=== PATIENT | female | born 1945 | race Caucasian/White ===

== ENCOUNTER 2020-03-28 13:51 | Emergency (ER) | payer MEDICARE, OTHER ==
--- NOTE | 2020-03-28 14:42 | RAD REPORT ---
EXAM DESCRIPTION: RAD - Knee Right 3 View - 03/28/2020 2:21 pm CLINICAL HISTORY: Right knee pain FINDINGS: Bones are osteoporotic. Sideplate and screws affix an old femoral fracture Moderate joint effusion is present. Moderate osteoarthritis involves medial compartment consisting of joint space narrowing and osteophyt es. Lateral and patellofemoral compartment also involved. If patient continues to have symptoms to suggest an occult fracture, ligamentous or meniscal injury M RI would be recommended
[2020-03-28] MEDS ORDERED: LIDOCAINE 1% 20 ML MDV ONE (14:53)
[2020-03-28 15:28] LABS: Absolute Lymphocytes (CBC) 1.6 K/uL (0.7-4.9); Basophils % 0.6 % (0-1.3); Hematocrit 38.9 % (36.0-45.0); Lymphocytes % 12.7 % (15.3-44.8); MPV 11.3 fL (7.6-11.3); RBC Red Blood Cell Count 4.16 M/uL (3.86-4.86)
[2020-03-28 15:42] LABS: Potassium 3.9 mmol/L (3.5-5.1)
[2020-03-28 16:31] LABS: Body Fluid WBC 13852 /mm^3
[2020-03-28 16:32] LABS: Appearance VERY TURBID (CLEAR); Body Fluid Source SYNOVIAL; Color of fluid Red (COLORLESS)
[2020-03-28] MEDS ORDERED: HYDROCODONE/APAP 5/325 MG TAB ONE (17:17)
--- NOTE | 2020-03-28 17:45 | EDPHYS ---
Physician Documentation [facility] Name: Kaitlynn Snider Age: 75 yrs Sex: Female : 1945 Arrival Date: 03/28/2020 Time: 13:57 Bed 23 Private MD: ED Physician Darryl Fraser HPI: 03/28 14:15 This 75 yrs old Unknown Female presents to ER via EMS with complaints of Knee Pain. rn 14:15 The patient presents with pain, swelling. The complaints affect the right knee. Onset: rn The symptoms/episode began/occurred 2 week(s) ago. Modifying factors: The symptoms are alleviated by nothing. the symptoms are aggravated by weight bearing, bending knee. Associated signs and symptoms: Pertinent positives: swelling, Pertinent negatives fever. Severity of symptoms: At their worst the symptoms were moderate, in the emergency department the symptoms are unchanged. The patient has experienced similar episodes in the past. The patient has not recently seen a physician. Reports right knee pain and swelling for 2 weeks. No injury. + previous surgery to right knee. No fever. + hx of gout.. Historical: - Allergies: 14:01 Tape; zb - Home Meds: 17:27 aspirin 81 mg Oral chew [Active]; buspirone 10 mg Oral tab 1 tab 3 times per day zb [Active]; calcium carbonate 600 mg (1,500 mg) Oral tab [Active]; escitalopram oxalate 10 mg oral tab 1 tab once daily [Active]; Fish Oil 1,000 mg oral cap [Active]; Flintstones Complete (iron) oral chew [Active]; Flonase 50 mcg/actuation Nasal spsn 1 spray once daily [Active]; gabapentin 100 mg oral cap [Active]; gabapentin 300 mg oral cap [Active]; glimepiride 2 mg Oral tab 2 tabs twice a day [Active]; hydralazine 25 mg Oral tab 1 tab 2 times per day [Active]; Januvia 50 mg oral tab once daily [Active]; levothyroxine 50 mcg tab 1 tab once daily [Active]; loperamide 2 mg Oral cap [Active]; losartan 50 mg oral tab 1 tab 2 times per day [Active]; magnesium oxide 400 mg Oral tab [Active]; meloxicam 7.5 mg oral tab 1 tab once daily [Active]; metoprolol tartrate 25 mg oral tab 1 tab [Active]; omeprazole 40 mg Oral cpDR [Active]; pravastatin 40 mg oral tab 2 tabs once daily [Active]; verapamil 240 mg Oral TbER [Active]; Vitamin C Oral [Active]; Vitamin D Oral 1,000 unit [Active]; Cardura 8 mg Oral tab [Active]; magnesium oxide 400 mg Oral cap [Active]; Levemir 100 unit/mL subcutaneous soln 47 Other twice a day [Active]; ProAir HFA 90 mcg/actuation inhalation HFAA 1 puff every 4 hours [Active]; Singulair 10 mg Oral tab 1 tab once daily [Active]; Symbicort 160-4.5 mcg/actuation inhalation HFAA [Active]; - PMHx: 17:27 Diabetes - NIDDM; Hypertension; Hyperlipidemia; High Cholesterol; zb - Immunization history:: Adult Immunizations up to date. - Family history:: not pertinent. - Social history:: Smoking status: unknown. - Hospitalizations: : No recent hospitalization is reported. ROS: 14:15 Constitutional: Negative for fever, chills, and weight loss, MS/Extremity: + right knee rn pain and swelling Skin: Negative for injury, rash, and discoloration. Exam: 14:15 Constitutional: This is a well developed, well nourished patient who is awake, alert, rn and in no acute distress. Cardiovascular: Regular rate and rhythm. No pulse deficits. Respiratory: No increased work of breathing, no retractions or nasal flaring. Abdomen/GI: Soft, non-tender Skin: Warm, dry with normal turgor. Normal color with no rashes, no lesions, and no evidence of cellulitis. MS/ Extremity: Pulses equal, no cyanosis. Neurovascular intact. Equal circumference. Mild warmth of right knee compared to left, + mild painful ROM, no sign of overlying cellulitis. Neuro: Awake and alert, GCS 15 Vital Signs: 13:57 BP 177 / 79; Pulse 66; Resp 18; Temp 98.3; Pulse Ox 96% on R/A; Weight 86.18 kg; Height dh4 5 ft. 6 in. (167.64 cm); 15:06 BP 170 / 65; Pulse 62; Resp 18; Pulse Ox 95% on R/A; zb 16:00 BP 165 / 58; Pulse 66; Resp 18; Pulse Ox 96% on R/A; dh4 17:00 BP 170 / 72; Pulse 70; Resp 16; Pulse Ox 99% on R/A; zb 18:00 BP 162 / 80; Pulse 68; Resp 16; Pulse Ox 100% on R/A; zb 13:57 Body Mass Index 30.67 (86.18 kg, 167.64 cm) dh4 Procedures: 14:55 Joint Treatment: Aspiration of right knee using 25 gauge needle. Removed 17 ml's of rn ashok fluid, bloody fluid, Specimen sent to lab. Dressed with band aid, Patient tolerated well. MDM: 13:57 Patient medically screened. rn 17:42 Differential diagnosis: strain, knee effusion, inflammatory arthritis, gout, septic rn arthritis. Data reviewed: vital signs, nurses notes, lab test result(s), radiologic studies, plain films, and as a result, I will discharge patient. Counseling: I had a detailed discussion with the patient and/or guardian regarding: the historical points, exam findings, and any diagnostic results supporting the discharge/admit diagnosis, lab results, radiology results, the need for outpatient follow up, to return to the emergency department if symptoms worsen or persist or if there are any questions or concerns that arise at home. Response to treatment: the patient's symptoms have mildly improved after treatment, and as a result, I will discharge patient. Special discussion: I discussed with the patient/guardian in detail that at this point there is no indication for admission to the hospital. It is understood, however, that if the symptoms persist or worsen the patient needs to return immediately for re-evaluation. ED course: Pt's story most consistent with inflammatory arthropathy given 2 weeks of symptoms, afebrile, no trauma, but severe osteoarthritis with narrowing of knee joint. Joint fluid consistent most with inflammatory arthritis, WBC of fluid 13K, more blood than WBC, and gram stain neg. Will dc home with return instructions and ortho f/u.. 03/28 14:00 Order name: CBC with Diff; Complete Time: 15:54 rn 03/28 14:00 Order name: Basic Metabolic Panel; Complete Time: 15:54 rn 03/28 14:00 Order name: Blood Culture Adult (2) rn 03/28 14:00 Order name: Procalcitonin; Complete Time: 17:11 rn 01/23 14:55 Order name: Body Fluid Culture rn 03/28 14:55 Order name: Crystals, Fluid; Complete Time: 16:22 rn 03/28 14:00 Order name: XRAY Knee RIGHT 3 view; Complete Time: 14:53 rn 03/28 14:00 Order name: IV Start; Complete Time: 15:14 rn 03/28 14:55 Order name: Fluid Cell Count,Body; Complete Time: 16:57 rn Administered Medications: 17:02 Drug: P[place] 5 mg-325 mg 1 tabs Route: PO; zb Disposition: 03/28/20 17:45 Discharged to Home. Impression: Inflammatory Arthropathy right knee. - Condition is Stable. - Discharge Instructions: Arthritis, Knee Effusion. - Prescriptions for Ultram 50 mg Oral Tablet - take 1 tablet by ORAL route every 8 hours As needed; 15 tablet. - Medication Reconciliation Form, Thank You Letter, Antibiotic Education, Prescription Opioid Use form. - Follow up: Jonathan Narvaez MD; When: As needed; Reason: Recheck today's complaints, Re-evaluation by your physician. - Problem is an ongoing problem. - Symptoms have improved. Signatures: Dispatcher [employer] EDMS Darryl Fraser MD MD rn Brown, KARL Rae RN Corrections: (The following items were deleted from the chart) 18:26 17:45 03/28/2020 17:45 Discharged to Home. Impression: Inflammatory Arthropathy right zb knee. Condition is Stable. Forms are Medication Reconciliation Form, Thank You Letter, Antibiotic Education, Prescription Opioid Use. Follow up: Jonathan Narvaez; When: As needed; Reason: Recheck today's complaints, Re-evaluation by your physician. Problem is an ongoing problem. Symptoms have improved. rn
--- NOTE | 2020-03-28 17:45 | ER ---
Nurse's Notes [facility] Name: Kaitlynn Snider Age: 75 yrs Sex: Female : 1945 Arrival Date: 03/28/2020 Time: 13:57 Bed 23 Private MD: Diagnosis: Inflammatory Arthropathy right knee Presentation: 03/28 13:58 Chief complaint: EMS states: Pt has been experiencing Right knee pain and swelling for zb the last two weeks. rates pain 10/10. feels like it very hard to walk. Coronavirus screen: At this time, the client does not indicate any symptoms associated with coronavirus-19. Ebola Screen: No symptoms or risks identified at this time. Initial Sepsis Screen: Does the patient meet any 2 criteria? No. Patient's initial sepsis screen is negative. Does the patient have a suspected source of infection? No. Patient's initial sepsis screen is negative. Risk Assessment: Do you want to hurt yourself or someone else? Patient reports no desire to harm self or others. Onset of symptoms is unknown. 13:58 Acuity: RHINA 3 zb 13:58 Method Of Arrival: EMS: [facility] zb Triage Assessment: 14:00 General: Appears in no apparent distress. uncomfortable, Behavior is calm, cooperative, jd3 appropriate for age. Pain: Complains of pain in right knee Pain does not radiate. Pain currently is 10 out of 10 on a pain scale. Quality of pain is described as aching, Is continuous. EENT: No signs and/or symptoms were reported regarding the EENT system. Neuro: Level of Consciousness is awake, alert, obeys commands, Oriented to person, place, time, situation. Cardiovascular: Heart tones S1 S2 present Capillary refill < 3 seconds in bilateral fingers Patient's skin is warm and dry. Respiratory: Airway is patent Respiratory effort is even, unlabored, Respiratory pattern is regular, symmetrical. GI: No signs and/or symptoms were reported involving the gastrointestinal system. : No signs and/or symptoms were reported regarding the genitourinary system. Derm: Skin is intact, is healthy with good turgor, Skin is dry, Skin is normal. Musculoskeletal: Range of motion: limited in right knee Swelling present in right knee warmth in R knee. Historical: - Allergies: 14:01 Tape; zb - Home Meds: 17:27 aspirin 81 mg Oral chew [Active]; buspirone 10 mg Oral tab 1 tab 3 times per day zb [Active]; calcium carbonate 600 mg (1,500 mg) Oral tab [Active]; escitalopram oxalate 10 mg oral tab 1 tab once daily [Active]; Fish Oil 1,000 mg oral cap [Active]; Flintstones Complete (iron) oral chew [Active]; Flonase 50 mcg/actuation Nasal spsn 1 spray once daily [Active]; gabapentin 100 mg oral cap [Active]; gabapentin 300 mg oral cap [Active]; glimepiride 2 mg Oral tab 2 tabs twice a day [Active]; hydralazine 25 mg Oral tab 1 tab 2 times per day [Active]; Januvia 50 mg oral tab once daily [Active]; levothyroxine 50 mcg tab 1 tab once daily [Active]; loperamide 2 mg Oral cap [Active]; losartan 50 mg oral tab 1 tab 2 times per day [Active]; magnesium oxide 400 mg Oral tab [Active]; meloxicam 7.5 mg oral tab 1 tab once daily [Active]; metoprolol tartrate 25 mg oral tab 1 tab [Active]; omeprazole 40 mg Oral cpDR [Active]; pravastatin 40 mg oral tab 2 tabs once daily [Active]; verapamil 240 mg Oral TbER [Active]; Vitamin C Oral [Active]; Vitamin D Oral 1,000 unit [Active]; Cardura 8 mg Oral tab [Active]; magnesium oxide 400 mg Oral cap [Active]; Levemir 100 unit/mL subcutaneous soln 47 Other twice a day [Active]; ProAir HFA 90 mcg/actuation inhalation HFAA 1 puff every 4 hours [Active]; Singulair 10 mg Oral tab 1 tab once daily [Active]; Symbicort 160-4.5 mcg/actuation inhalation HFAA [Active]; - PMHx: 17:27 Diabetes - NIDDM; Hypertension; Hyperlipidemia; High Cholesterol; zb - Immunization history:: Adult Immunizations up to date. - Family history:: not pertinent. - Social history:: Smoking status: unknown. - Hospitalizations: : No recent hospitalization is reported. Screenin:01 Abuse screen: Denies threats or abuse. Denies injuries from another. Nutritional zb screening: No deficits noted. Tuberculosis screening: No symptoms or risk factors identified. Fall Risk No fall in past 12 months (0 pts). No secondary diagnosis (0 pts). IV access (20 points). Ambulatory Aid- Crutches/Cane/Walker (15 pts). Gait- Impaired (20 pts.). Mental Status- Oriented to own ability (0 pts). Total Samuels Fall Scale indicates Low Risk Score (25-44 pts). Fall prevention measures have been instituted. Side Rails Up X 2 Placed close to Nursing Station Frequent Obs/Assesments occuring As available Patient and Family Educated on Fall Prevention Program and strategies. Assessment: 15:00 Reassessment: Patient appears in no apparent distress at this time. Patient and/or jd3 family updated on plan of care and expected duration. Pain level reassessed. Patient is alert, oriented x 3, equal unlabored respirations, skin warm/dry/pink. no changes at this time. Knee aspiration preformed by dr. fraser. 16:00 Reassessment: Patient appears in no apparent distress at this time. Patient and/or zb family updated on plan of care and expected duration. Pain level reassessed. Patient is alert, oriented x 3, equal unlabored respirations, skin warm/dry/pink. 17:00 Reassessment: Patient appears in no apparent distress at this time. Patient and/or zb family updated on plan of care and expected duration. Pain level reassessed. Patient is alert, oriented x 3, equal unlabored respirations, skin warm/dry/pink. pt rated pain 5/10. notified ECP. medication given. ICE applied. 18:00 Reassessment: Patient appears in no apparent distress at this time. Patient and/or zb family updated on plan of care and expected duration. Pain level reassessed. Patient is alert, oriented x 3, equal unlabored respirations, skin warm/dry/pink. ECP at bedside explained care to patient. pt waiting d/c. Vital Signs: 13:57 BP 177 / 79; Pulse 66; Resp 18; Temp 98.3; Pulse Ox 96% on R/A; Weight 86.18 kg; Height dh4 5 ft. 6 in. (167.64 cm); 15:06 BP 170 / 65; Pulse 62; Resp 18; Pulse Ox 95% on R/A; zb 16:00 BP 165 / 58; Pulse 66; Resp 18; Pulse Ox 96% on R/A; 4 17:00 BP 170 / 72; Pulse 70; Resp 16; Pulse Ox 99% on R/A; zb 18:00 BP 162 / 80; Pulse 68; Resp 16; Pulse Ox 100% on R/A; zb 13:57 Body Mass Index 30.67 (86.18 kg, 167.64 cm) formerly [facility] ED Course: 13:57 Patient arrived in ED. zb 13:57 Darryl Fraser MD is Attending Physician. rn 14:00 Triage completed. zb 14:22 XRAY Knee RIGHT 3 view In Process Unspecified. EDMS 15:10 Tevin Garzon, RN is Primary Nurse. jd3 15:16 No provider procedures requiring assistance completed. Inserted saline lock: 20 gauge jd3 in left antecubital area, using aseptic technique. 15:16 Patient has correct armband on for positive identification. Pulse ox on. NIBP on. Door jd3 closed. Noise minimized. Warm blanket given. 17:44 Jonathan Narvaez MD is Referral Physician. rn 18:25 IV discontinued, intact, bleeding controlled, No redness/swelling at site. Pressure zb dressing applied. 18:26 Arm band placed on right wrist. zb Administered Medications: 17:02 Drug: [place] 5 mg-325 mg 1 tabs Route: PO; zb Outcome: 17:45 Discharge ordered by . rn 18:25 Discharged to home via wheelchair. zb 18:25 Condition: stable 18:25 Discharge instructions given to patient, Instructed on discharge instructions, follow up and referral plans. medication usage, Demonstrated understanding of instructions, follow-up care, medications, Prescriptions given X 1. 18:26 Patient left the ED. zb Signatures: Dispatcher [employer] EDGA Darryl Fraser MD MD rn Davies, Jonathon, RN RN Mikhail Soriano [facility] Kyra Bell RN RN zb
[2020-03-28 18:40] VITALS: TEMP 98.3
[2020-03-28 18:44] VITALS: BP 162/80; O2SAT 100
== END 2020-03-28 18:26 | disposition home or self-care (01) ==
LOC: ER 13:51
PROC: 0S9C3ZX Drainage of Right Knee Joint, Percutaneous Approach, Diagnostic (ICD-10-PCS; principal; 2020-03-28)
DX: M17.11 Unilateral primary osteoarthritis, right knee (principal); I10 Essential (primary) hypertension; E11.9 Type 2 diabetes mellitus without complications; E78.5 Hyperlipidemia, unspecified; Z79.82 Long term (current) use of aspirin
CPT/HCPCS: 36415; 80048; 84145; 85025; 87040; 87070; 89050; 89060; 99284

== ENCOUNTER 2021-05-22 16:00 | Inpatient (IN) | payer MEDICARE, OTHER ==
[2021-05-22] MEDS ORDERED: CEFTRIAXONE 1000 MG/VIAL ONE (16:41)
[2021-05-22] MEDS ORDERED: METHYLPREDNISOLONE 125 MG INJ ONE (16:41)
[2021-05-22] MEDS ORDERED: ALBUTEROL 2.5 MG/3 ML NEB SOL ONE (16:41)
[2021-05-22] MEDS ORDERED: IPRATROPIUM BROM 0.5MG/2.5ML ONE (16:41)
[2021-05-22] MEDS ORDERED: NA CHLORIDE 0.9% 250 ML ONE (16:41)
[2021-05-22] MEDS ORDERED: AZITHROMYCIN 500 MG INJ IVPB ONE (16:41)
[2021-05-22 17:04] LABS: Absolute Lymphocytes (CBC) 2.3 K/uL (0.7-4.9); Hematocrit 44.6 % (36.0-45.0); Lymphocytes % 17.5 % (15.3-44.8); MPV 10.9 fL (7.6-11.3); RBC Red Blood Cell Count 4.78 M/uL (3.86-4.86)
[2021-05-22 17:07] LABS: Protime INR 1.19
[2021-05-22 17:17] LABS: Albumin 3.3 g/dL (3.4-5.0); Bilirubin Direct 0.2 mg/dL (0-0.2); Bilirubin Total 0.6 mg/dL (0.2-1.0); CKMB Creatine Kinase MB 1.8 ng/mL (1.0-3.6); Magnesium 2.2 mg/dL (1.8-2.4); Potassium 3.7 mmol/L (3.5-5.1); Protein, Total 8.2 g/dL (6.4-8.2)
[2021-05-22] MEDS ORDERED: Magnesium Sulfate 2gm IVPB 2 G/50 ML BAG IV ONE (17:21)
[2021-05-22 17:46] LABS: Arterial Blood Carboxyhemoglob 1.7 % (0-1.5); Blood Gas Oxyhemoglobin 91.4 % (94-97)
--- NOTE | 2021-05-22 18:20 | EDPHYS ---
Physician Documentation [facility] Name: Kaitlynn Snider Age: 76 yrs Sex: Female : 1945 Arrival Date: 05/22/2021 Time: 16:04 Bed 3 Private MD: ED Physician Napoleon Garrido HPI: 05/22 16:39 This 76 yrs old Female presents to ER via EMS with complaints of Shortness Of Breath. ma2 16:39 The patient has shortness of breath with light activity. Onset: The symptoms/episode ma2 began/occurred gradually, 1 day(s) ago. Associated signs and symptoms: Pertinent negatives: productive cough, diaphoresis, dizziness, fever, hemoptysis, loss of consciousness, numbness in extremities, visual changes. Severity of symptoms: At their worst the symptoms were moderate in the emergency department the symptoms are unchanged. The patient has not experienced similar symptoms in the past. 6-year-old female with history of diabetes COPD hypertension, presents with SOB, cough brought to ER by [facility], given duo nebs, was found to be hypoxemic the latter on oxygen 10 L via nasal cannula. Then they started her on cpap. Patient is awake alert at this time. Has expiratory wheeze, a switch to BiPAP in our ER.. Historical: - Allergies: 16:37 Tape; ld1 - PMHx: 16:37 Diabetes - NIDDM; Hyperlipidemia; High Cholesterol; Hypertension; COPD; ld1 - Immunization history:: Adult Immunizations up to date, Client reports having NOT received the Covid vaccine. - Social history:: Smoking status: Patient denies any tobacco usage or history of. Patient/guardian denies using alcohol, Patient/guardian denies using street drugs, The patient lives alone. - Family history:: not pertinent. ROS: 16:39 Constitutional: Negative for fever, chills, and weight loss. ma2 16:39 All other systems are negative. 16:39 All other systems are negative. ma2 16:39 All other systems are negative. 16:39 Unable to obtain ROS due to 16:39 Unable to obtain ROS due to patient's speech is incomprehensible. Exam: 16:39 Constitutional: Patient on BiPAP, in mild respiratory distress awake alert, this is a ma2 well developed, well nourished patient who is awake, alert, and in no acute distress. Head/Face: Normocephalic, atraumatic. Eyes: Pupils equal round and reactive to light, extra-ocular motions intact. Lids and lashes normal. Conjunctiva and sclera are non-icteric and not injected. Cornea within normal limits. Periorbital areas with no swelling, redness, or edema. ENT: Nares patent. No nasal discharge, no septal abnormalities noted. Tympanic membranes are normal and external auditory canals are clear. Oropharynx with no redness, swelling, or masses, exudates, or evidence of obstruction, uvula midline. Mucous membranes moist. Neck: Trachea midline, no thyromegaly or masses palpated, and no cervical lymphadenopathy. Supple, full range of motion without nuchal rigidity, or vertebral point tenderness. No Meningismus. Chest/axilla: Normal chest wall appearance and motion. Nontender with no deformity. No lesions are appreciated. Cardiovascular: Regular rate and rhythm with a normal S1 and S2. No gallops, murmurs, or rubs. Normal PMI, no JVD. No pulse deficits. Respiratory: Is expiratory wheeze, on BiPAP, respiratory distress. Lungs have equal breath sounds bilaterally, clear to auscultation and percussion. No rales, rhonchi or wheezes noted. No increased work of breathing, no retractions or nasal flaring. Abdomen/GI: Soft, non-tender, with normal bowel sounds. No distension or tympany. No guarding or rebound. No evidence of tenderness throughout. Back: No spinal tenderness. No costovertebral tenderness. Full range of motion. Skin: Warm, dry with normal turgor. Normal color with no rashes, no lesions, and no evidence of cellulitis. MS/ Extremity: Pulses equal, no cyanosis. Neurovascular intact. Full, normal range of motion. Neuro: Awake and alert, GCS 15, oriented to person, place, time, and situation. Cranial nerves II-XII grossly intact. Motor strength 5/5 in all extremities. Sensory grossly intact. Cerebellar exam normal. Normal gait. Vital Signs: 16:10 BP 143 / 84; Pulse 92; Resp 25; Temp 98.7(O); Pulse Ox 100% on 40% BiPAP; Weight 95.25 ld1 kg; Height 5 ft. 5 in. (165.10 cm); Pain 0/10; 16:44 BP 219 / 104; Pulse 84; Resp 21; Pulse Ox 99% on 40% BiPAP; ld1 18:04 BP 192 / 107; Pulse 79; Resp 25; Pulse Ox 96% on 40% BiPAP; ld1 19:41 BP 204 / 100; Pulse 74; Resp 22; Pulse Ox 95% on BiPAP; Pain 0/10; tw5 19:55 BP 223 / 119; Pulse 77; Resp 18; Pulse Ox 97% on BiPAP; tw5 20:54 BP 186 / 69; Pulse 70; Resp 16; Pulse Ox 96% on BiPAP; tw5 21:13 BP 206 / 112; Pulse 72; Resp 17; Pulse Ox 95% on BiPAP; tw5 22:24 BP 231 / 104; Pulse 78; Resp 20; Pulse Ox 94% on BiPAP; tw5 22:44 BP 166 / 92; tw5 23:30 BP 151 / 90; Pulse 74; Resp 19; Pulse Ox 94% on BiPAP; ll3 05/23 00:27 BP 163 / 87; Pulse 71; Resp 18; Pulse Ox 94% on BiPAP; tw5 01:37 BP 165 / 100; Pulse 69; Resp 20; Pulse Ox 95% on BiPAP; tw5 01:38 BP 165 / 100; tw5 03:06 BP 219 / 97; tw5 03:07 BP 219 / 97; tw5 03:08 BP 211 / 97; tw5 03:46 BP 140 / 54; Pulse 68; Resp 18; Pulse Ox 94% on R/A; tw5 06:03 Pulse 66; Resp 18; Pulse Ox 95% on 40% BiPAP; tw5 07:37 BP 209 / 100; Pulse 67; Resp 18; Pulse Ox 94% on 30% BiPAP; herrera 08:00 BP 173 / 83; Pulse 68; Resp 18; Pulse Ox 94% on 30% BiPAP; herrera 05/22 16:10 Body Mass Index 34.95 (95.25 kg, 165.10 cm) ld1 05/22 19:41 provider aware of pressure tw5 22:24 provider notified of vitals tw5 MDM: 16:16 Patient medically screened. ma2 16:39 Differential diagnosis: Bronchitis Chronic Obstructive Pulmonary Disease pneumonia, ma2 Pneumothorax reactive airway disease. 18:14 Data reviewed: vital signs, nurses notes. Data interpreted: library monitor: rate is 77 ms3 beats/min, rhythm is normal sinus rhythm, Interpretation: normal rate. ED course: Discussed case with ASHLEE Peirre, and he accepts patient to Dr Fraser. Discussed plan for admission with patient and she agrees with plan.. 05/22 16:15 Order name: Glucose, Ancillary Testing; Complete Time: 16:44 EDMS 05/22 16:18 Order name: BMP mi2 05/22 16:18 Order name: Blood Culture Adult (2) [facility] 05/22 16:18 Order name: CBC with Diff; Complete Time: 18:08 [facility] 05/22 16:18 Order name: CPK; Complete Time: 18:08 [facility] 05/22 16:18 Order name: Ckmb; Complete Time: 18:08 [facility] 05/22 16:18 Order name: Hepatic Function; Complete Time: 18:08 [facility] 05/22 16:18 Order name: Lipase; Complete Time: 18:08 [facility] 05/22 16:18 Order name: Magnesium; Complete Time: 18:08 [facility] 05/22 16:18 Order name: NT PRO-BNP; Complete Time: 18:08 [facility] 05/22 16:18 Order name: PT-INR; Complete Time: 18:08 [facility] 05/22 16:18 Order name: Ptt, Activated; Complete Time: 18:08 [facility] 05/22 16:18 Order name: SARS-COV-2 RT PCR (Document "Date of Onset" if Symptomatic); Complete Time: [facility] 19:56 05/22 16:18 Order name: Basic Metabolic Panel; Complete Time: 18:08 EDMS 05/22 16:21 Order name: Glucose, Ancillary Testing [facility] 05/22 16:44 Order name: ABG; Complete Time: 18:16 mi2 05/22 17:07 Order name: Troponin HS; Complete Time: 18:08 ld1 05/22 18:11 Order name: Chest Single View XRAY; Complete Time: 19:56 la1 05/22 20:17 Order name: Glucose, Ancillary Testing; Complete Time: 20:26 EDMS 05/23 06:43 Order name: CBC with Automated Diff EDMS 05/23 07:05 Order name: Comprehensive Metabolic Panel EDMS 05/23 07:05 Order name: Troponin High Sensitivity EDMS 05/23 07:05 Order name: Lipid Profile EDMS 05/23 07:05 Order name: T4 Free [facility] 05/23 07:05 Order name: Thyroid Stimulating Hormone [facility] 05/23 07:59 Order name: NT PRO-BNP [facility] 05/23 09:48 Order name: CBC Smear Scan [facility] 05/23 12:58 Order name: Troponin High Sensitivity [facility] 05/22 16:18 Order name: EKG; Complete Time: 16:19 ma2 05/22 16:18 Order name: Cardiac monitoring; Complete Time: 16:28 mi2 05/22 16:18 Order name: EKG - Nurse/Tech; Complete Time: 16:28 mi2 05/22 16:18 Order name: IV Saline Lock; Complete Time: 16:43 mi2 05/22 16:18 Order name: Labs collected and sent; Complete Time: 16:28 mi2 05/22 16:18 Order name: O2 Per Protocol; Complete Time: 16:28 mi2 05/22 16:18 Order name: O2 Sat Monitoring; Complete Time: 16:28 mi2 05/22 19:43 Order name: Harrison; Complete Time: 19:55 tw5 Administered Medications: 16:57 Drug: Albuterol 2.5 mg Route: Inhalation; herrera 16:57 Drug: AtroVENT (ipratropium) Aerosol 0.5 mg Route: Inhalation; herrera 16:57 Drug: SOLU-Medrol (methylPrednisoLONE) 125 mg Route: IVP; Site: right antecubital; herrera 16:58 Follow up: Response: No adverse reaction herrera 18:07 Drug: Rocephin (cefTRIAXone) 1 grams Route: IV; Rate: calculated rate; Site: right herrera antecubital; 18:07 Drug: AZITHromycin 500 mg Route: IVPB; Infused Over: 1 hrs; Site: right antecubital; herrera 18:07 Drug: Magnesium Sulfate 2 grams Route: IVPB; Infused Over: 2 hrs; Site: right herrera antecubital; 21:13 Follow up: Response: No adverse reaction; IV Status: Completed infusion; IV Intake: tw5 100ml 19:58 Drug: Lasix (furosemide) 60 mg Route: IVP; Site: right antecubital; tw5 21:12 Follow up: Response: No adverse reaction tw5 20:03 Drug: Nitro-Bid (nitroglycerin) Ointment 2 % 1 inches Route: Transdermal; Site: tw5 anterior chest wall; 22:23 Follow up: Paste removed per provider orders. Removed and wiped clean from patients tw5 skin. 21:13 Drug: carvedilol 6.25 mg {Note: Administered with glucerna shake..} Route: PO; tw5 22:37 Follow up: Response: Blood pressure is unchanged tw5 22:23 Drug: Lisinopril 10 mg Route: PO; tw5 22:36 Follow up: Response: Blood pressure is unchanged tw5 22:34 Drug: Nitro Drip - (Nitroglycerin 50 mg, D5W 250 ml) Route: IV; Rate: 5 mcg/min; Site: tw5 right antecubital; 22:34 Follow up: Rate change 100 mcg/min; Per Dr. Garrido order. Dr. Garrido at the bedside with tw5 patient. 22:44 Follow up: BP 166 / 92; Rate change 50 mcg/min tw5 05/23 00:28 Follow up: Rate change 20 mcg/min tw5 01:38 Follow up: BP 165 / 100; Rate change 25 mcg/kg/min tw5 03:06 Follow up: BP 219 / 97; Rate change 30 mcg/min tw5 03:08 Follow up: Rate change 50 mcg/min tw5 03:08 Follow up: BP 211 / 97 tw5 Disposition: 00:51 Critical Care:. ms3 Disposition Summary: 05/22/21 18:20 Hospitalization Ordered Hospitalization Status: Inpatient Admission ms3 Provider: Barrington Fraser ms3 Condition: Stable ms3 Problem: new ms3 Symptoms: are unchanged ms3 Bed/Room Type: Standard ms3 Location: Intensive Care Unit(05/23/21 16:16) Room Assignment: 3-(05/23/21 16:16) Diagnosis - CHF exacerbation ms3 - Respiratory failure ms3 - Dyspnea ms3 Forms: - Medication Reconciliation Form ms3 - SBAR form ms3 Critical care time excluding procedures: 00:51 Critical care time: Bedside Care: 45 minutes, Consultation: 5 minutes. Total time: 50 ms3 minutes Signatures: Dispatcher [employer] Bekah Santiago RN RN dw Attema, Lee, SEAFOOD FISHERMAN-C SEAFOOD FISHERMAN-Cla1 Paris Coffey RN RN Esther Colvin MD MD ma2 Napoleon Garrido DO DO ms3 Clemencia Guardado, RN RN ld1 Candice Shannon tw5 Anay Wilkins RN RN herrera Corrections: (The following items were deleted from the chart) 05/22 20:30 18:20 Telemetry/MedSurg (Inpatient) ms3 cg 20:30 18:20 ms3 cg 05/23 16:16 05/22 20:30 [facility] ER HOLD cg dw 05/23 16:16 05/22 20:30 ERHOLD- cg dw
--- NOTE | 2021-05-22 18:20 | ER ---
Nurse's Notes [facility] Name: Kaitlynn Snider Age: 76 yrs Sex: Female : 1945 Arrival Date: 05/22/2021 Time: 16:04 Bed 3 Private MD: Diagnosis: CHF exacerbation;Respiratory failure;Dyspnea Presentation: 05/22 16:10 Chief complaint: EMS states: toned out for SOB. ld1 16:10 Method Of Arrival: EMS: [facility] ld1 16:10 Coronavirus screen: At this time, the client does not indicate any symptoms associated ld1 with coronavirus-19. Ebola Screen: No symptoms or risks identified at this time. Initial Sepsis Screen: Does the patient meet any 2 criteria? No. Patient's initial sepsis screen is negative. Does the patient have a suspected source of infection? No. Patient's initial sepsis screen is negative. Risk Assessment: Do you want to hurt yourself or someone else? Patient reports no desire to harm self or others. Onset of symptoms was May 22, 2021. 16:10 Acuity: RHINA 2 ld1 Triage Assessment: 16:37 General: Appears in no apparent distress. comfortable, Behavior is calm, cooperative, ld1 appropriate for age. Pain: Denies pain. EENT: No signs and/or symptoms were reported regarding the EENT system. Neuro: Level of Consciousness is awake, alert, obeys commands, Oriented to person, place, time, situation. Cardiovascular: Capillary refill < 3 seconds Patient's skin is warm and dry. Rhythm is sinus rhythm. Respiratory: Reports shortness of breath at rest on exertion Airway is patent Respiratory effort is even, labored, Patient placed on BiPAP: Inspiratory Pressure: 12 Expiratory (EPAP) Pressure: 5 FiO2%: 40 Respiratory Rate: 25 Onset: The symptoms/episode began/occurred today, the patient has severe shortness of breath. GI: Abdomen is round non-distended. : No signs and/or symptoms were reported regarding the genitourinary system. Derm: No signs and/or symptoms reported regarding the dermatologic system. Musculoskeletal: No signs and/or symptoms reported regarding the musculoskeletal system. Historical: - Allergies: 16:37 Tape; ld1 - PMHx: 16:37 Diabetes - NIDDM; Hyperlipidemia; High Cholesterol; Hypertension; COPD; ld1 - Immunization history:: Adult Immunizations up to date, Client reports having NOT received the Covid vaccine. - Social history:: Smoking status: Patient denies any tobacco usage or history of. Patient/guardian denies using alcohol, Patient/guardian denies using street drugs, The patient lives alone. - Family history:: not pertinent. Screenin:40 Abuse screen: Denies threats or abuse. Denies injuries from another. Nutritional ld1 screening: No deficits noted. Tuberculosis screening: No symptoms or risk factors identified. Fall Risk None identified. Assessment: 16:40 Reassessment: see triage assessment. Cardiovascular: Capillary refill < 3 seconds ld1 Patient's skin is warm and dry. Rhythm is sinus rhythm. Respiratory: Airway is patent Respiratory effort is even, labored, Respiratory pattern is regular, Breath sounds are clear bilaterally. the patient has severe shortness of breath. 19:41 General: Reports "I am feeling pretty good now" Patient appears comfortable in [facility] stretcher on BIPAP. Respiratory: Patient placed on BiPAP: Inspiratory Pressure: 12 Expiratory (EPAP) Pressure: 5 FiO2%: 40 Respiratory Rate: 35. 19:55 Pain: Denies pain. Neuro: Level of Consciousness is awake, alert, obeys commands, tw5 Oriented to person, place, time, situation. 21:13 Reassessment: Patient appears in no apparent distress at this time. No changes from 5 previously documented assessment. Patient and/or family updated on plan of care and expected duration. Pain level reassessed. Patient is alert, oriented x 3, equal unlabored respirations, skin warm/dry/pink. General: Reports "I am doing okay, I probably look awful." Patient reasurred. : to gravity drainage. 21:43 General: Spoke to Priti, the daughter. Kaitlynn stated it was okay to talk to the tw5 daughter and she wanted the daughter to have the access code [id number]. . 05/23 01:37 General: Appears in no apparent distress. tw5 06:44 General: Behavior is calm, cooperative, appropriate for age. tw5 13:18 Reassessment: Charting in [facility] Vital Signs: 05/22 16:10 BP 143 / 84; Pulse 92; Resp 25; Temp 98.7(O); Pulse Ox 100% on 40% BiPAP; Weight 95.25 ld1 kg; Height 5 ft. 5 in. (165.10 cm); Pain 0/10; 16:44 BP 219 / 104; Pulse 84; Resp 21; Pulse Ox 99% on 40% BiPAP; ld1 18:04 BP 192 / 107; Pulse 79; Resp 25; Pulse Ox 96% on 40% BiPAP; ld1 19:41 BP 204 / 100; Pulse 74; Resp 22; Pulse Ox 95% on BiPAP; Pain 0/10; tw5 19:55 BP 223 / 119; Pulse 77; Resp 18; Pulse Ox 97% on BiPAP; tw5 20:54 BP 186 / 69; Pulse 70; Resp 16; Pulse Ox 96% on BiPAP; tw5 21:13 BP 206 / 112; Pulse 72; Resp 17; Pulse Ox 95% on BiPAP; tw5 22:24 BP 231 / 104; Pulse 78; Resp 20; Pulse Ox 94% on BiPAP; tw5 22:44 BP 166 / 92; tw5 23:30 BP 151 / 90; Pulse 74; Resp 19; Pulse Ox 94% on BiPAP; ll3 05/23 00:27 BP 163 / 87; Pulse 71; Resp 18; Pulse Ox 94% on BiPAP; tw5 01:37 BP 165 / 100; Pulse 69; Resp 20; Pulse Ox 95% on BiPAP; tw5 01:38 BP 165 / 100; tw5 03:06 BP 219 / 97; tw5 03:07 BP 219 / 97; tw5 03:08 BP 211 / 97; tw5 03:46 BP 140 / 54; Pulse 68; Resp 18; Pulse Ox 94% on R/A; tw5 06:03 Pulse 66; Resp 18; Pulse Ox 95% on 40% BiPAP; tw5 07:37 BP 209 / 100; Pulse 67; Resp 18; Pulse Ox 94% on 30% BiPAP; herrera 08:00 BP 173 / 83; Pulse 68; Resp 18; Pulse Ox 94% on 30% BiPAP; herrera 05/22 16:10 Body Mass Index 34.95 (95.25 kg, 165.10 cm) ld1 05/22 19:41 provider aware of pressure tw5 22:24 provider notified of vitals tw5 ED Course: 04:08 Arm band placed on Patient placed in an exam room, on a stretcher. ll1 16:04 Patient arrived in ED. ll1 16:16 Esther Colvin MD is Attending Physician. ma2 16:28 BMP Sent. herrera 16:37 Triage completed. ld1 16:37 EKG completed in triage. Results shown to MD. ld1 16:40 Patient has correct armband on for positive identification. Placed in gown. Bed in low ld1 position. Call light in reach. Side rails up X2. theatrical rigger on. Pulse ox on. NIBP on. Door closed. Noise minimized. Warm blanket given. 16:40 No provider procedures requiring assistance completed. Inserted saline lock: 20 gauge ld1 in right antecubital area, using aseptic technique. Blood collected. 16:42 Clemencia Guardado, KARL is Primary Nurse. ld1 16:52 First set of blood cultures drawn. em1 17:07 Second set of blood cultures drawn. em1 17:09 Attending Physician role handed off by Esther Colvin MD ms3 17:09 Napoleon Garrido DO is Attending Physician. ms3 18:19 Barrington Fraser MD is Hospitalizing Provider. ms3 18:51 Chest Single View XRAY In Process Unspecified. EDMS 19:55 Harrison cath inserted, using sterile technique, 16 Fr., by ak, balloon inflated, to tw5 gravity drainage, urine specimen collected. returned clear yellow urine. Patient tolerated well. 20:03 Glucose, Ancillary Testing Sent. tw5 20:04 Placed in gown. Bed in low position. Call light in reach. Side rails up X2. Cardiac tw5 monitor on. Pulse ox on. NIBP on. Door closed. Noise minimized. Moved to private room. Warm blanket given. Verbal reassurance given. 05/23 00:58 Primary Nurse role handed off by Clemencia Guardado, RN tw5 00:58 Candice Shannon is Primary Nurse. tw5 Administered Medications: 05/22 16:57 Drug: Albuterol 2.5 mg Route: Inhalation; herrera 16:57 Drug: AtroVENT (ipratropium) Aerosol 0.5 mg Route: Inhalation; herrera 16:57 Drug: SOLU-Medrol (methylPrednisoLONE) 125 mg Route: IVP; Site: right antecubital; herrera 16:58 Follow up: Response: No adverse reaction herrera 18:07 Drug: Rocephin (cefTRIAXone) 1 grams Route: IV; Rate: calculated rate; Site: right herrera antecubital; 18:07 Drug: AZITHromycin 500 mg Route: IVPB; Infused Over: 1 hrs; Site: right antecubital; herrera 18:07 Drug: Magnesium Sulfate 2 grams Route: IVPB; Infused Over: 2 hrs; Site: right herrera antecubital; 21:13 Follow up: Response: No adverse reaction; IV Status: Completed infusion; IV Intake: tw5 100ml 19:58 Drug: Lasix (furosemide) 60 mg Route: IVP; Site: right antecubital; tw5 21:12 Follow up: Response: No adverse reaction tw5 20:03 Drug: Nitro-Bid (nitroglycerin) Ointment 2 % 1 inches Route: Transdermal; Site: tw5 anterior chest wall; 22:23 Follow up: Paste removed per provider orders. Removed and wiped clean from patients tw5 skin. 21:13 Drug: carvedilol 6.25 mg {Note: Administered with glucerna shake..} Route: PO; tw5 22:37 Follow up: Response: Blood pressure is unchanged tw5 22:23 Drug: Lisinopril 10 mg Route: PO; tw5 22:36 Follow up: Response: Blood pressure is unchanged tw5 22:34 Drug: Nitro Drip - (Nitroglycerin 50 mg, D5W 250 ml) Route: IV; Rate: 5 mcg/min; Site: tw5 right antecubital; 22:34 Follow up: Rate change 100 mcg/min; Per Dr. Garrido order. Dr. Garrido at the bedside with tw5 patient. 22:44 Follow up: BP 166 / 92; Rate change 50 mcg/min tw5 20 00:28 Follow up: Rate change 20 mcg/min tw5 01:38 Follow up: BP 165 / 100; Rate change 25 mcg/kg/min tw5 03:06 Follow up: BP 219 / 97; Rate change 30 mcg/min tw5 03:08 Follow up: Rate change 50 mcg/min tw5 03:08 Follow up: BP 211 / 97 tw5 Intake: 05/22 21:13 IV: 100ml; Total: 100ml. tw5 05/23 06:03 PO: 300ml; Total: 400ml. tw5 Output: 05/22 21:13 Urine: 1600ml (Harrison); Total: 1600ml. tw5 05/23 06:03 Urine: 1200ml (Harrison); Total: 2800ml. tw5 Outcome: 05/22 18:20 Decision to Hospitalize by Provider. ms3 05/23 17:39 Admitted to ICU accompanied by nurse, accompanied by tech, via stretcher, room 3A, with ic1 oxygen, on monitor, with chart, Report called to KARL Trent Condition: stable Instructed on the need for admit. 17:40 Patient left the ED. ic1 Signatures: Dispatcher [employer] Valentin Shell em1 Esther Colvin MD MD ma2 Kvng Self, RN RN ll1 Napoleon Garrido, DO DO ms3 Clemencia Guardado, RN RN brigida1 Candice Shannon tw5 Milo Cabello, RN RN ll3 Au-StagerAnay RN RN herrera Prabha Yan RN RN ic1
--- NOTE | 2021-05-22 18:59 | RAD REPORT ---
EXAM DESCRIPTION: RAD - Chest Single View - 05/22/2021 6:51 pm CLINICAL HISTORY: COPD COMPARISON: No comparisons FINDINGS: Lines: None. Lungs: Widespread interstitial and airspace disease. Pleural: No significant pleural effusions or pneumothorax. Cardiac: Cardiomegaly. Bones: No acute fractures. Other: IMPRESSION: Findings most consistent with pulmonary edema. Pneumonia less likely.
[2021-05-22] MEDS ORDERED: FUROSEMIDE 20 MG/ 2ML VIAL ONE (19:37)
[2021-05-22] MEDS ORDERED: NITROGLYCERIN 1 GM PKT TD ONE (19:37)
[2021-05-22] MEDS ORDERED: FUROSEMIDE 40 MG/4 ML VIAL ONE (19:37)
[2021-05-22] MEDS ORDERED: carvediloL 6.25 MG TAB ONE (21:07)
--- NOTE | 2021-05-22 21:31 | P.HP ---
Certification for Inpatient Patient admitted to: Inpatient With expected LOS: >2 Midnights Patient will require the following post-hospital care: None Practitioner: I am a practitioner with admitting privileges, knowledge of patient current condition, hospital course, and medical plan of care. Services: Services provided to patient in accordance with Admission requirements found in Title 42 Section 412.3 of the Code of Federal Regulations Patient History Date of Service: 05/23/21 Reason for admission: Acute CHF, respiratory failure History of Present Illness: 76-year-old female with history of diabetes mellitus type 2, hypertension, hyperlipidemia and COPD presents the emergency department for respiratory distress. Patient ports increasing shortness of breath over the course last few weeks, also noted to have some lower extremity edema. Patient was evaluated in the emergency department her labs were significant for elevated BNP 3923 high-sensitivity troponin initially negative white blood cell count 13.3 ABG pH 7.37 PCO2 54.3 PO2 74.5 Covid negative chest x-ray demonstrates pulmonary edema. Patient with crackles bilaterally on exam patient was placed on BiPAP for respiratory distress is tolerating this well significantly hypertensive as well with initial systolic in the 200s patient reports is been this way for the past few days. Will need treatment for acute CHF, no history of CHF noted. - Past Medical/Surgical History -: Hypertension -: Hyperlipidemia -: COPD -: Diabetes mellitus type 2 Past Surgical History: Reviewed- Non-Contributory Psychosocial/ Personal History: patient lives at home with her daughter - Family History Sister -: Cancer - Social History Smoking Status: Never smoker Alcohol use: No CD- Drugs: No Caffeine use: Yes Place of Residence: Home Review of Systems 10-point ROS is otherwise unremarkable Respiratory: Cough, Shortness of Breath, SOB with Excertion Cardiovascular: Edema Physical Examination - Physical Exam General: Alert, In no apparent distress, Oriented x3 HEENT: Atraumatic, PERRLA, Mucous membr. moist/pink, EOMI, Sclerae nonicteric Neck: Supple, 2+ carotid pulse no bruit, No LAD, Without JVD or thyroid abnormality Respiratory: Crackles/rales, Other (Moderate respiratory distress, on BiPAP) Cardiovascular: Regular rate/rhythm, Normal S1 S2, Edema Capillary refill: <2 Seconds Gastrointestinal: Normal bowel sounds, No tenderness Musculoskeletal: No tenderness Integumentary: No rashes Neurological: Normal speech, Normal strength at 5/5 x4 extr, Normal tone, Normal affect Lymphatics: No axilla or inguinal lymphadenopathy - Studies Laboratory Data (last 24 hrs) 05/22/21 16:02: PT 13.1 H, INR 1.19, APTT 31.2 05/22/21 16:02: WBC 13.30 H, Hgb 14.1, Hct 44.6, Plt Count 218 05/22/21 16:02: Sodium 141, Potassium 3.7, BUN 25 H, Creatinine 1.28, Glucose 99, Magnesium 2.2, Total Bilirubin 0.6, AST 24, ALT 28, Alkaline Phosphatase 80, Lipase 147 Assessment and Plan - Plan Assessment: Acute respiratory failure secondary to suspected new onset CHFunknown EF Hypertension Hyperlipidemia COPD Diabetes mellitus type 2 Plan: Acute respiratory failure secondary to suspected new onset CHFunknown EF: Lasix 40 mg IV twice daily, echocardiogram, cardiology consult in place. Have started carvedilol, aspirin, lisinopril, atorvastatin. Blood pressure significant elevated if does not respond to Nitropaste and Lasix may need nitro drip. We will continue to monitor. Hypertension: Restart home medications, initiated carvedilol, lisinopril given significant hypertension in the presence of suspected new onset heart failure Hyperlipidemia: Atorvastatin 40 mg daily COPD: Continue home medications as appropriate, no wheezing noted at this time seems more more like CHF exacerbation. Patient reports in the past she had been on home oxygen will evaluate for possibility of needing home oxygen. Diabetes mellitus type 2: A [facility] Accu-Chek, sliding scale insulin. DVT PPX: Lovenox Code status: Full Discharge Plan: Home Plan to discharge in: 72 Hours - Advance Directives Does patient have a Living Will: No Does patient have a Durable POA for Healthcare: No - Code Status/Comfort Care Code Status Assessed: Yes (Full) Critical Care: No Time Spent Managing Pts Care (In Minutes): 55
[2021-05-22] MEDS ORDERED: lisinopriL 10 MG TAB ONE (22:21)
[2021-05-22] MEDS ORDERED: NITROGLYCERIN/D5W 50 MG/250 ML BTL IV ONE (22:30)
[2021-05-23] MEDS ORDERED: ONDANSETRON 4 MG/2 ML VIAL IV PRN (06:12)
[2021-05-23] MEDS: ATORVASTATIN 40 MG TAB PO SCH ×2 (06:12→21:59)
[2021-05-23] MEDS ORDERED: IPRATROPIUM BROM 0.5MG/2.5ML NEB PRN (06:12)
[2021-05-23] MEDS ORDERED: NITROGLYCERIN/D5W 50 MG/250 ML BTL IV SCH (06:12)
[2021-05-23] MEDS: carvediloL 6.25 MG TAB PO SCH ×3 (06:12→21:59)
[2021-05-23] MEDS ORDERED: ALBUTEROL 2.5 MG/3 ML NEB SOL NEB PRN ×2 (06:12→17:00)
[2021-05-23] MEDS ORDERED: ATORVASTATIN 20 MG TAB ONE (06:21)
[2021-05-23] MEDS ORDERED: carvediloL 6.25 MG TAB ONE ×2 (06:21→09:56)
[2021-05-23 06:40] LABS: Hematocrit 42.9 % (36.0-45.0); Lymphocytes % 8.9 % (15.3-44.8); MPV 10.5 fL (7.6-11.3); RBC Red Blood Cell Count 4.55 M/uL (3.86-4.86)
[2021-05-23 07:05] LABS: Albumin 3.2 g/dL (3.4-5.0); Bilirubin Total 0.6 mg/dL (0.2-1.0); Potassium 4.1 mmol/L (3.5-5.1); Protein, Total 8.2 g/dL (6.4-8.2); Thyroid Stimulating Hormone 0.772 uIU/mL (0.360-3.740); Troponin High Sensitivity 19.8 pg/mL (<58.9)
[2021-05-23] MEDS: FUROSEMIDE 40 MG/4 ML VIAL IV SCH ×2 (09:00→18:34)
[2021-05-23] MEDS: lisinopriL 5 MG TAB PO SCH (09:00)
[2021-05-23] MEDS: ASPIRIN EC 81 MG TAB PO SCH (09:00)
[2021-05-23] MEDS: ENOXAPARIN 30 MG/0.3 ML SQ SCH (09:00)
[2021-05-23] MEDS ORDERED: FUROSEMIDE 40 MG/4 ML VIAL ONE (09:32)
[2021-05-23 09:47] LABS: Blood Morphology Comment NOT SEEN (NOT SEEN); Platelet Estimate ADEQ; White Blood Cell Scan OK (OK)
[2021-05-23] MEDS ORDERED: ASPIRIN 81 MG CHEWABLE TABLET ONE (09:56)
[2021-05-23] MEDS ORDERED: ENOXAPARIN 30 MG/0.3 ML SQ ONE (09:57)
--- NOTE | 2021-05-23 11:07 | P.PN ---
Subjective Date of Service: 05/23/21 Chief Complaint: Acute CHF, respiratory failure Subjective: Improving (Good urine output with diuresis) Physical Examination - Vital Signs Blood Pressure: 155/75 Pulse: 73 Respirations: 18 Pulse Ox (%): 95 - Physical Exam General: Obese, Other (bipap) HEENT: Atraumatic, Normocephalic Respiratory: Diminished, Other (bipap) Cardiovascular: Regular rate/rhythm, Normal S1 S2, Edema Gastrointestinal: Soft and benign, Non-distended, No tenderness Neurological: Normal speech, Normal affect - Studies Laboratory Data (last 24 hrs) 05/22/21 16:02: PT 13.1 H, INR 1.19, APTT 31.2 05/22/21 16:02: WBC 13.30 H, Hgb 14.1, Hct 44.6, Plt Count 218 05/22/21 16:02: Sodium 141, Potassium 3.7, BUN 25 H, Creatinine 1.28, Glucose 99, Magnesium 2.2, Total Bilirubin 0.6, AST 24, ALT 28, Alkaline Phosphatase 80, Lipase 147 Assessment And Plan - Current Problems (Diagnosis) (1) Acute hypoxemic respiratory failure Current Visit: Yes Status: Acute (2) Acute CHF Current Visit: Yes Status: Acute (3) RAYNE (acute kidney injury) Current Visit: Yes Status: Acute (4) Obesity (BMI 30-39.9) Current Visit: Yes Status: Acute Physician Review Additional Text: 05/23/21 11:03 Patient is a 76-year-old female with a past medical history of obesity, hypertension and chronic kidney disease stage III. She was admitted overnight after she presented with shortness of breath. Her chest x-ray suggestive of pulmonary edema and CHF exacerbation. She was severely hypertensive with SBP in the 200s. She is currently on BiPAP, diuresis and n itroglycerin infusion. Acute hypoxemic respiratory failure Hypertensive emergency Acute CHF exacerbation Obesity CKD stage III Plan: Continue current management with nitroglycerin infusion/IV Lasix and BiPAP Wean off BiPAP as tolerated Monitor renal function closely while on diuresis Continue aspirin, high intensity statin, beta-roddy and KAMALA inhibitor Avoiding nephrotoxins Follow-up 2D echo Cardiology was consulted on admission Continue telemetry monitoring DVT prophylaxis 05/23/21 11:07
[2021-05-23] MEDS ORDERED: NITROGLYCERIN/D5W 0 MG/0 ML BTL IV ONE (13:25)
[2021-05-23] MEDS ORDERED: PNEUMOCOCCAL VACCINE 0.5 ML IMVAC ONE (16:00)
[2021-05-23] MEDS ORDERED: INFLUENZA VACCINE (for 6+ mo) 0.5 ML DOSE IMVAC ONE (16:00)
--- NOTE | 2021-05-23 21:43 | CON ---
Date of Consultation: 05/23/2021 Reason For Consultation: Respiratory failure and CHF. History Of Present Illness: This is a 76-year-old female with history of diabetes, hypertension, dys lipidemia, COPD, presented with acute hypoxic respiratory failure, respiratory distress, required BiP AP, found to be in acute congestive heart failure. Has lower extremities edema, orthopnea, and signi ficant shortness of breath. Denies having any chest pain. Past Medical History: Hypertension, dyslipidemia, diabetes, COPD. Medications: Refer reconciliation sheet for detailed list. Allergies: NO KNOWN DRUG ALLERGIES. Family History: No premature coronary artery disease or cancer. Social History: She does not smoke or drink. Does not use any drugs. Review of Systems: All systems reviewed and they were negative except for above mentioned in the HPI. Physical Examination: Vital Signs: Temperature is 98.4, pulse 65, breathing at 18, blood pressure 135/68, satting 97% on 2 L. General: Pleasant elderly female, in no apparent distress. Head and Neck: Pupils are equal and reactive to light. Intact eye movements. Positive JVD elevatio n. Neck: Supple. Thyroid is not enlarged. Lungs: Crackles in both bases. No accessory muscle use or muscle retraction. Heart: Regular rate and rhythm. No extra sounds. Abdomen: Soft, nontender. Bowel sounds positive. No organomegaly. No masses or hernia. No rigidi ty or rebound. Extremities: No clubbing or cyanosis. Intact pulses. 3+ pitting edema bilaterally. Neuro: Alert, awake, oriented x3. No acute focal deficits appreciated. Investigations: White blood cell count 11.5, hemoglobin 13.3. Her BUN is 35, creatinine is 1.54, wh ich is up from yesterday. Creatinine was 1.28. Her troponins are negative. The chest x-ray, pulmon melanie edema. Assessment And Recommendations: 1.Acute congestive heart failure exacerbation. Ejection fraction is not known. The patient does no t have any history of coronary artery disease or cardiac issues as per her report. She responded florida y well to diuretics. Continue IV Lasix cautiously. Monitor BUN, creatinine, and electrolytes. If t here is any further increase in her creatinine, to hold the Lasix and obtain an echocardiogram tomorr ow and further recommendations to follow. 2.Hypertensive urgency. Blood pressure initially was very high at 209/100. It is likely the cause of her acute congestive heart failure. She was started already on low-dose Coreg and lisinopril, tit rate up as tolerated for a blood pressure control to reduce the cardiac afterload. Thank you for the consult. /REZA Voice ID: [id number] Report ID: [id number]
[2021-05-23] MEDS: ACETAMINOPHEN 500 MG TAB PO PRN (21:59)
[2021-05-23] MEDS ORDERED: GLUCAGON 1 MG/VIAL IM PRN (23:03)
[2021-05-23] MEDS ORDERED: D50W 25 GM/50 ML SYRINGE IV PRN (23:03)
[2021-05-23] MEDS: INSULIN -REGULAR HUMAN 50 UNIT/0.5 ML ML SQ SCH (23:10)
[2021-05-24 05:06] LABS: Absolute Lymphocytes (CBC) 2.1 K/uL (0.7-4.9); Hematocrit 38.5 % (36.0-45.0); Lymphocytes % 15.9 % (15.3-44.8); MPV 10.3 fL (7.6-11.3)
[2021-05-24 05:23] LABS: Albumin 2.9 g/dL (3.4-5.0); Bilirubin Total 0.5 mg/dL (0.2-1.0); Potassium 3.5 mmol/L (3.5-5.1); Protein, Total 7.3 g/dL (6.4-8.2)
[2021-05-24] MEDS ORDERED: POTASSIUM CL SA 10 MEQ TAB PO ONE (06:07)
[2021-05-24] MEDS: FUROSEMIDE 40 MG/4 ML VIAL IV SCH ×2 (07:54→18:13)
[2021-05-24] MEDS: carvediloL 6.25 MG TAB PO SCH (07:54)
[2021-05-24] MEDS: ASPIRIN EC 81 MG TAB PO SCH (07:54)
[2021-05-24] MEDS: ENOXAPARIN 30 MG/0.3 ML SQ SCH (07:55)
[2021-05-24] MEDS: INSULIN GLARGINE 100 UNIT/ML SQ SCH (07:55)
[2021-05-24] MEDS: lisinopriL 5 MG TAB PO SCH (07:56)
--- NOTE | 2021-05-24 08:22 | EKG ---
Test Date: 2021-05-22 Test Time: 16:10:05 Appeals Board Referee: JOSE GUADALUPE MEASUREMENT RESULTS: Intervals: Rate: 89 FL: 196 QRSD: 98 QT: 390 QTc: 474 Comins: P: 88 FL: 196 QRS: -81 T: 75 INTERPRETIVE STATEMENTS: Normal sinus rhythm Left anterior fascicular block Septal infarct, age undetermined Lateral infarct, age undetermined Abnormal ECG No previous ECG available for comparison Electronically Signed On 05-24-21 08:20:01 CDT by Jacob Thomas
[2021-05-24] MEDS: ACETAMINOPHEN 500 MG TAB PO PRN (10:24)
[2021-05-24] MEDS ORDERED: HYDRALAZINE HCL 20 MG/ML VIAL IV PRN (11:10)
[2021-05-24] MEDS: INSULIN -REGULAR HUMAN 50 UNIT/0.5 ML ML SQ SCH ×3 (11:20→21:30)
[2021-05-24] MEDS ORDERED: cloNIDine HCL 0.1 MG TAB PO ONE (19:53)
[2021-05-24] MEDS ORDERED: lisinopriL 20 MG TAB PO SCH (21:00)
[2021-05-24] MEDS: carvediloL 12.5 MG TAB PO SCH (21:31)
[2021-05-24] MEDS: ATORVASTATIN 40 MG TAB PO SCH (21:36)
[2021-05-24] MEDS ORDERED: LOPERAMIDE HCL 2 MG CAPSULE PO PRN (21:43)
[2021-05-25] MEDS: LEVOTHYROXINE SOD 0.075 MG TAB PO SCH (06:32)
[2021-05-25 06:51] LABS: Absolute Lymphocytes (CBC) 1.5 K/uL (0.7-4.9); Hematocrit 41.9 % (36.0-45.0); RBC Red Blood Cell Count 4.51 M/uL (3.86-4.86)
[2021-05-25 07:12] LABS: Albumin 2.9 g/dL (3.4-5.0); Bilirubin Total 0.9 mg/dL (0.2-1.0); Magnesium 1.6 mg/dL (1.8-2.4); Potassium 3.4 mmol/L (3.5-5.1); Protein, Total 7.2 g/dL (6.4-8.2)
--- NOTE | 2021-05-25 07:12 | RAD REPORT ---
EXAM DESCRIPTION: RAD - Chest Single View - 05/25/2021 5:40 am CLINICAL HISTORY: pneumonia COMPARISON: Portable May 22 TECHNIQUE: AP portable chest image was obtained 05/25/2021 5:40 am . FINDINGS: Lung volumes have improved slightly from prior day imaging. Diffuse interstitial opacifica tion and bibasilar airspace opacification are still present. There has been little or no improvement since prior day imaging. Left hemidiaphragm and left heart border remain obscured. Cardiac silhouette is enlarged. Upper lobe vasculature is prominent. No pneumothorax is present. No enlarging pleural e ffusion. No acute bony abnormality seen. No acute aortic findings suspected. IMPRESSION: Bibasilar pleural and parenchymal opacification showing little or no improvement from pr ior day imaging.
--- NOTE | 2021-05-25 07:30 | ECHO ---
HEIGHT: 5 ft 5 in WEIGHT: 207 lb 12.8 oz DATE OF STUDY: 05/24/[address]: Jay Carey 2-DIMENSIONAL: YES M.MODE: YES DOPPLER: YES COLOR FLOW: YES TDS: YES PORTABLE: YES DEFINITY: NO BUBBLE STUDY: NO DIAGNOSIS: ACUTE CONGESTIVE HEART FAILURE CARDIAC HISTORY: CATHERIZATION: SURGERY: PROSTHETIC VALVE: PACEMAKER: MEASUREMENTS (cm) DIASTOLIC (NORMALS) SYSTOLIC (NORMALS) IVSd 1.1 (0.6-1.2) LA Diam 3.6 (1.9-4.0) LVEF 64% LVIDd 4.3 (3.5-5.7) LVIDs 2.8 (2.0-3.5) %FS 34% LVPWd 1.2 (0.6-1.2) Ao Diam 2.4 (2.0-3.7) 2 DIMENSIONAL ASSESSMENT: RIGHT ATRIUM: NORMAL LEFT ATRIUM: NORMAL RIGHT VENTRICLE: NORMAL LEFT VENTRICLE: NORMAL TRICUSPID VALVE: NORMAL MITRAL VALVE: NORMAL PULMONIC VALVE: NORMAL AORTIC VALVE: NORMAL PERICARDIAL EFFUSION: SMALL AORTIC ROOT: NORMAL LEFT VENTRICULAR WALL MOTION: NORMAL DOPPLER/COLOR FLOW: NORMAL COMMENTS: NORMAL LEFT VENTRICULAR EJECTION FRACTION 60-65% WITH NORMAL WALL MOTION. MODERATE DIASTOLIC DYSFUNCTION. MILD LEFT VENTRICULAR HYPERTROPHY. SMALL PERICARDIAL EFFUSION. TECHNOLOGIST: Tahir ALVARADO
[2021-05-25] MEDS ORDERED: Magnesium Sulfate 2gm IVPB 2 G/50 ML BAG IV ONE (07:50)
[2021-05-25] MEDS: HOME MED 1 EA UNK (Dapagliflozin Propanediol [Farxiga] 5 MG Tablet) PO SCH (09:00)
[2021-05-25] MEDS: MAGNESIUM OXIDE 400 MG TAB PO SCH (09:00)
[2021-05-25] MEDS: HOME MED 1 EA UNK (Fluticasone/Umeclidin/Vilanter [Trelegy Ellipta 100-62.5-25] Blst.W.Dev IH SCH (09:00)
[2021-05-25] MEDS ORDERED: NEBIVOLOL HCL 5 MG TAB PO SCH (09:00)
[2021-05-25] MEDS: GABAPENTIN 300 MG CAP PO SCH ×2 (09:12→21:00)
[2021-05-25] MEDS: VITAMIN D 1000 UNIT TAB PO SCH (09:12)
[2021-05-25] MEDS: ASPIRIN EC 81 MG TAB PO SCH (09:12)
[2021-05-25] MEDS: LOSARTAN POTASSIUM 50 MG TABLET PO SCH ×2 (09:12→21:01)
[2021-05-25] MEDS: GABAPENTIN 100 MG CAP PO SCH (09:12)
[2021-05-25] MEDS: GLIMEPIRIDE 2 MG TABLET PO SCH ×2 (09:12→16:40)
[2021-05-25] MEDS: CETIRIZINE HCL 5 MG TABLET PO SCH (09:12)
[2021-05-25] MEDS: CALCIUM CARBONATE 500 MG TAB PO SCH (09:12)
[2021-05-25] MEDS: BUSPIRONE HCL 5 MG TABLET PO SCH ×3 (09:13→21:01)
[2021-05-25] MEDS: ESCITALOPRAM 20 MG TAB PO SCH (09:13)
[2021-05-25] MEDS: MONTELUKAST 10 MG TAB PO SCH (09:13)
[2021-05-25] MEDS: carvediloL 12.5 MG TAB PO SCH ×2 (09:14→21:01)
[2021-05-25] MEDS: ENOXAPARIN 30 MG/0.3 ML SQ SCH (09:14)
[2021-05-25] MEDS: PANTOPRAZOLE 40MG TABLET PO SCH ×2 (09:14→16:40)
[2021-05-25] MEDS: HYDRALAZINE HCL 25 MG TABLET PO SCH ×2 (09:14→21:00)
[2021-05-25] MEDS: INSULIN -REGULAR HUMAN 50 UNIT/0.5 ML ML SQ SCH ×4 (09:15→21:01)
[2021-05-25] MEDS: INSULIN GLARGINE 100 UNIT/ML SQ SCH (09:15)
[2021-05-25] MEDS: FUROSEMIDE 40 MG/4 ML VIAL IV SCH ×2 (09:16→16:40)
[2021-05-25] MEDS ORDERED: ATORVASTATIN 10 MG TAB PO SCH (21:00)
[2021-05-25] MEDS ORDERED: DOXAZOSIN 4 MG TAB PO PRN (21:00)
[2021-05-25] MEDS: allopurinoL 300 MG TAB PO SCH (21:01)
[2021-05-25] MEDS: ATORVASTATIN 40 MG TAB PO SCH (21:01)
[2021-05-26 04:14] LABS: Potassium 3.2 mmol/L (3.5-5.1)
[2021-05-26] MEDS: LEVOTHYROXINE SOD 0.075 MG TAB PO SCH (05:20)
[2021-05-26] MEDS ORDERED: POTASSIUM CL SA 10 MEQ TAB PO ONE ×2 (06:00→15:00)
[2021-05-26] MEDS: HOME MED 1 EA UNK (Fluticasone/Umeclidin/Vilanter [Trelegy Ellipta 100-62.5-25] Blst.W.Dev IH SCH (09:00)
[2021-05-26] MEDS: HOME MED 1 EA UNK (Dapagliflozin Propanediol [Farxiga] 5 MG Tablet) PO SCH (09:00)
[2021-05-26] MEDS: MAGNESIUM OXIDE 400 MG TAB PO SCH (09:00)
[2021-05-26] MEDS: carvediloL 12.5 MG TAB PO SCH ×2 (09:03→20:56)
[2021-05-26] MEDS: MONTELUKAST 10 MG TAB PO SCH (09:03)
[2021-05-26] MEDS: CETIRIZINE HCL 5 MG TABLET PO SCH (09:03)
[2021-05-26] MEDS: GLIMEPIRIDE 2 MG TABLET PO SCH ×2 (09:03→17:29)
[2021-05-26] MEDS: ASPIRIN EC 81 MG TAB PO SCH (09:03)
[2021-05-26] MEDS: ESCITALOPRAM 20 MG TAB PO SCH (09:03)
[2021-05-26] MEDS: GABAPENTIN 300 MG CAP PO SCH ×2 (09:03→20:55)
[2021-05-26] MEDS: VITAMIN D 1000 UNIT TAB PO SCH (09:03)
[2021-05-26] MEDS: CALCIUM CARBONATE 500 MG TAB PO SCH (09:03)
[2021-05-26] MEDS: PANTOPRAZOLE 40MG TABLET PO SCH ×2 (09:04→17:29)
[2021-05-26] MEDS: GABAPENTIN 100 MG CAP PO SCH (09:04)
[2021-05-26] MEDS: BUSPIRONE HCL 5 MG TABLET PO SCH ×3 (09:04→20:55)
[2021-05-26] MEDS: LOSARTAN POTASSIUM 50 MG TABLET PO SCH ×2 (09:04→20:55)
[2021-05-26] MEDS: HYDRALAZINE HCL 25 MG TABLET PO SCH ×2 (09:04→20:56)
[2021-05-26] MEDS: FUROSEMIDE 40 MG/4 ML VIAL IV SCH ×2 (09:05→17:29)
[2021-05-26] MEDS: ENOXAPARIN 30 MG/0.3 ML SQ SCH (09:05)
[2021-05-26] MEDS: INSULIN GLARGINE 100 UNIT/ML SQ SCH (09:05)
[2021-05-26] MEDS: INSULIN -REGULAR HUMAN 50 UNIT/0.5 ML ML SQ SCH ×4 (09:05→20:56)
[2021-05-26 15:39] LABS: Arterial Blood Carboxyhemoglob 1.6 % (0-1.5); Blood Gas Oxyhemoglobin 90.4 % (94-97); Blood O2 Saturation 93.1 % (92-98.5)
--- NOTE | 2021-05-26 15:43 | P.PN ---
Date of Service: 05/24/21 Subjective Patient is doing well; diuresed; Physical Examination - Vital Signs reviewed - Physical Exam General: Obese, on nasal cannula HEENT: WNL Respiratory: Diminished; crackles Cardiovascular: Regular rate/rhythm, Normal S1 S2, Edema Gastrointestinal: Soft and benign, Non-distended, No tenderness Neurological: WNL Assessment And Plan - Current Problems (Diagnosis) (1) Acute hypoxemic respiratory failure Current Visit: Yes Status: Acute (2) Acute CHF Current Visit: Yes Status: Acute (3) RAYNE (acute kidney injury) Current Visit: Yes Status: Acute (4) Obesity (BMI 30-39.9) Current Visit: Yes Status: Acute Physician Review Additional Text: Assessment: 1. Acute hypoxemic respiratory failure 2. Hypertensive emergency 3. Acute CHF exacerbation 4. Obesity 5. CKD stage III Plan: -DC nitroglycerin infusion/IV Lasix and BiPAP -Weaned off BiPAP; on NC -Monitor renal function closely while on diuresis -Continue aspirin, high intensity statin, beta-roddy and KAMALA inhibitor -Avoiding nephrotoxins -Follow-up 2D echo -Cardiology was consulted on admission -Continue telemetry monitoring -DVT prophylaxis
--- NOTE | 2021-05-26 16:05 | P.PN ---
Date of Service: 05/25/21 Subjective Patient is doing well; oxygen status is stable; out of bed and ambulating Physical Examination - Vital Signs reviewed - Physical Exam General: Obese, on nasal cannula HEENT: WNL Respiratory: Diminished; crackles Cardiovascular: Regular rate/rhythm, Normal S1 S2, Edema Gastrointestinal: Soft and benign, Non-distended, No tenderness Neurological: WNL Assessment And Plan - Current Problems (Diagnosis) (1) Acute hypoxemic respiratory failure Current Visit: Yes Status: Acute (2) Acute CHF Current Visit: Yes Status: Acute (3) RAYNE (acute kidney injury) Current Visit: Yes Status: Acute (4) Obesity (BMI 30-39.9) Current Visit: Yes Status: Acute Physician Review Additional Text: Assessment: 1. Acute hypoxemic respiratory failure 2. Hypertensive emergency 3. Acute CHF exacerbation 4. Obesity 5. CKD stage III Plan: -DC nitroglycerin infusion/IV Lasix and NC -Weaned off BiPAP; on NC -Monitor renal function closely while on diuresis -Continue aspirin, high intensity statin, beta-roddy and KAMALA inhibitor -Avoiding nephrotoxins -Follow-up 2D echo -Cardiology was consulted on admission -Continue telemetry monitoring -PT -OOB and ambulate -DVT prophylaxis
[2021-05-26] MEDS: ATORVASTATIN 40 MG TAB PO SCH (20:55)
[2021-05-26] MEDS: allopurinoL 300 MG TAB PO SCH (20:55)
[2021-05-27 04:02] LABS: Potassium 3.6 mmol/L (3.5-5.1)
[2021-05-27 04:09] VITALS: BMI 34.1
[2021-05-27] MEDS: LEVOTHYROXINE SOD 0.075 MG TAB PO SCH (05:01)
[2021-05-27] MEDS ORDERED: POTASSIUM CL SA 10 MEQ TAB PO ONE (06:00)
[2021-05-27] MEDS: ENOXAPARIN 30 MG/0.3 ML SQ SCH (07:51)
[2021-05-27] MEDS: INSULIN GLARGINE 100 UNIT/ML SQ SCH (07:51)
[2021-05-27] MEDS: INSULIN -REGULAR HUMAN 50 UNIT/0.5 ML ML SQ SCH ×3 (07:51→16:30)
[2021-05-27] MEDS: CALCIUM CARBONATE 500 MG TAB PO SCH (07:52)
[2021-05-27] MEDS: BUSPIRONE HCL 5 MG TABLET PO SCH ×2 (07:52→14:02)
[2021-05-27] MEDS: FUROSEMIDE 40 MG/4 ML VIAL IV SCH ×2 (07:52→16:18)
[2021-05-27] MEDS: GABAPENTIN 100 MG CAP PO SCH (07:52)
[2021-05-27] MEDS: PANTOPRAZOLE 40MG TABLET PO SCH ×2 (07:52→17:20)
[2021-05-27] MEDS: MONTELUKAST 10 MG TAB PO SCH (07:52)
[2021-05-27] MEDS: LOSARTAN POTASSIUM 50 MG TABLET PO SCH (07:53)
[2021-05-27] MEDS: CETIRIZINE HCL 5 MG TABLET PO SCH (07:53)
[2021-05-27] MEDS: ASPIRIN EC 81 MG TAB PO SCH (07:53)
[2021-05-27] MEDS: carvediloL 12.5 MG TAB PO SCH (07:53)
[2021-05-27] MEDS: HYDRALAZINE HCL 25 MG TABLET PO SCH (07:53)
[2021-05-27] MEDS: MAGNESIUM OXIDE 400 MG TAB PO SCH (07:54)
[2021-05-27] MEDS: VITAMIN D 1000 UNIT TAB PO SCH (07:54)
[2021-05-27] MEDS: ESCITALOPRAM 20 MG TAB PO SCH (07:54)
[2021-05-27] MEDS: GLIMEPIRIDE 2 MG TABLET PO SCH ×2 (08:00→17:20)
[2021-05-27] MEDS: HOME MED 1 EA UNK (Dapagliflozin Propanediol [Farxiga] 5 MG Tablet) PO SCH (08:31)
[2021-05-27] MEDS: HOME MED 1 EA UNK (Fluticasone/Umeclidin/Vilanter [Trelegy Ellipta 100-62.5-25] Blst.W.Dev IH SCH (08:31)
--- NOTE | 2021-05-27 12:14 | PN ---
Date of Progress Note: 05/24/2021 The patient was seen by Dr. Carey, was admitted to Dr. Brian on 05/22/2021. The patient came in w ith congestive heart failure, shortness of breath, hypertension, diabetes, dyslipidemia, and COPD. C hest x-ray showed pulmonary edema. Echocardiogram showed diastolic congestive heart failure. PO2 wa s 74, pCO2 of 54, pH was 7.37. The patient is on facial BiPAP. Creatinine is 1.54. BNP was 4811. Presently, the patient is on Lasix, inhalers, aspirin, Lipitor, Coreg, lisinopril, lovastatin. Still fairly asymptomatic. I would decrease the Coreg, increase the lisinopril, continue medical therapy otherwise as is. We will continue to follow as needed. It may be reasonable to do a Lexiscan on the patient as an outpatient. MELCHOR/REZA Voice ID: [id number] Report ID: [id number]
[2021-05-27] MEDS ORDERED: GABAPENTIN 300 MG CAP PO SCH (13:00)
[2021-05-27 13:54] VITALS: O2SAT 95
[2021-05-27 16:34] VITALS: BP 164/72; TEMP 97.8
== END 2021-05-27 18:27 | disposition home or self-care (01) | DRG 291 ==
LOC: ER 16:00 → ERHOLD 19:59 → 3RD-ICU 05-23 17:00 → 4TH 05-24 15:55
PROVIDERS: ADMIT Internal Medicine; ATTEND Internal Medicine
PROC: 5A09457 Assistance with Respiratory Ventilation, 24-96 Consecutive Hours, Continuous Positive Airway Pressure (ICD-10-PCS; principal; 2021-05-22)
DX: I13.0 Hypertensive heart and chronic kidney disease with heart failure and stage 1 through stage 4 chronic kidney disease, or unspecified chronic kidney disease (principal); I50.31 Acute diastolic (congestive) heart failure; J96.01 Acute respiratory failure with hypoxia; N17.9 Acute kidney failure, unspecified; E78.5 Hyperlipidemia, unspecified; J44.9 Chronic obstructive pulmonary disease, unspecified; E11.65 Type 2 diabetes mellitus with hyperglycemia; E11.22 Type 2 diabetes mellitus with diabetic chronic kidney disease; N18.30 Chronic kidney disease, stage 3 unspecified; E66.9 Obesity, unspecified; Z68.34 Body mass index [BMI] 34.0-34.9, adult; I16.0 Hypertensive urgency; Z20.822 Contact with and (suspected) exposure to COVID-19
CPT/HCPCS: 36415; 51702; 71045; 80048; 80053; 80061; 80076; 82550; 82553; 82805; 82947; 83690; 83735; 83880; 84132; 84439; 84443; 84484; 85025; 85610; 85730; 87040; 93005; 93306; 94660; 96365; 96366; 96375; 97110; 97116; 97161; 97530; 99285; J0360; J0456; J1650; J1940; J2930; J3475; J7050; U0003

== ENCOUNTER 2021-12-15 18:07 | Emergency (ER) | payer OTHER ==
[2021-12-15] MEDS ORDERED: MORPHINE 4 MG/ML SYR ONE (18:55)
[2021-12-15] MEDS ORDERED: ONDANSETRON 4 MG/2 ML VIAL ONE (18:55)
[2021-12-15 19:13] LABS: Potassium 5.1 mmol/L (3.5-5.1); Troponin High Sensitivity 8.9 pg/mL (<58.9)
--- NOTE | 2021-12-15 19:36 | RAD REPORT ---
EXAM DESCRIPTION: CT - Head C Spine Mpr Wo Con - 12/15/2021 7:18 pm CLINICAL HISTORY: Head and neck injury status post fall. Head and neck pain COMPARISON: None. TECHNIQUE: Computed axial tomography of the head and cervical spine was obtained. Sagittal and coronal reconstruction was performed. All CT scans are performed using dose optimization technique as appropriate and may include automated exposure control or mA/KV adjustment according to patient size. FINDINGS: An intracranial bleed is not seen. The ventricles are normal in caliber. An extra-axial fluid collection is not noted. Hyperostosis frontalis interna A cervical fracture is not visualized. No dislocation is noted. Spondylosis involves the cervical spi ne IMPRESSION: No acute intracranial abnormality is seen. A cervical fracture is not visualized. If the patient continues to have symptoms to suggest intracra nial /spinal cord pathology then MRI would be recommended
[2021-12-15 19:38] LABS: Hematocrit 38.9 % (36.0-45.0); Lymphocytes % 5.1 % (15.3-44.8); MCV 93.2 fL (80-100); MPV 11.4 fL (7.6-11.3)
[2021-12-15 19:42] LABS: RBC Red Blood Cell Count 4.17 M/uL (3.86-4.86)
--- NOTE | 2021-12-15 19:43 | RAD REPORT ---
EXAM DESCRIPTION: CT - Facial Bones W/ Mpr - 12/15/2021 7:18 pm CLINICAL HISTORY: Facial injury status post fall. Facial pain COMPARISON: None TECHNIQUE: Computed axial tomography of the face was obtained. Coronal and sagittal reconstruction w as performed. All CT scans are performed using dose optimization technique as appropriate and may include automated exposure control or mA/KV adjustment according to patient size. FINDINGS: Some images degraded by patient motion artifact Right cheek hematoma. A fracture is not seen. A TMJ dislocation is not noted. The globes are intact. Fluid within the sinuses is not seen. IMPRESSION: Negative for a facial fracture.
--- NOTE | 2021-12-15 20:12 | RAD REPORT ---
EXAM DESCRIPTION: RAD - Pelvis - 12/15/2021 7:53 pm CLINICAL HISTORY: Pelvic pain status post injury FINDINGS: No fracture or dislocation is seen. Bones are osteoporotic If the patient continues to have symptoms to suggest an occult fracture then MRI would be recommended
--- NOTE | 2021-12-15 20:13 | RAD REPORT ---
EXAM DESCRIPTION: RAD - Femur Right - 12/15/2021 7:53 pm CLINICAL HISTORY: Leg pain FINDINGS: Bones are osteoporotic. Sideplate and screws affix an old femoral fracture. No acute fracture is seen
[2021-12-15 20:41] LABS: Blood Morphology Comment NOT SEEN (NOT SEEN); Platelet Estimate ADEQ
--- NOTE | 2021-12-15 23:48 | EDPHYS ---
Physician Documentation [facility] Name: Kaitlynn Snider Age: 76 yrs Sex: Female : 1945 Arrival Date: 12/15/2021 Time: 18:20 Bed 18 Private MD: CHARISSA Physician Pradip Robbins HPI: 12/15 22:10 This 76 yrs old Female presents to ER via EMS with complaints of knee pain. kb 22:10 The patient presents with decreased range of motion, pain, swelling, tenderness. The kb complaints affect the right knee. Context: The problem was sustained at home, resulted from the patient falling, while walking. Onset: The symptoms/episode began/occurred today. Modifying factors: The symptoms are alleviated by nothing. the symptoms are aggravated by movement, weight bearing, bending knee. Associated signs and symptoms: Pertinent positives: swelling, Pertinent negatives calf tenderness, fever, nausea, numbness, rash, tingling, vomiting, warmth, weakness. Treatment prior to arrival includes: no previous treatment. Severity of symptoms: At their worst the symptoms were moderate, in the emergency department the symptoms are unchanged. The patient has not experienced similar symptoms in the past. The patient has not recently seen a physician. Pt reports she slipped in water that was on the tile and landed on right knee. r/o pain and swelling to right knee. Denies hitting head, but has a bruise to right cheek. States she was on the ground for a few hours before being found. Denies hip pain. . Historical: - Allergies: 18:21 Tape; ap3 - PMHx: 18:21 COPD; Diabetes - NIDDM; High Cholesterol; Hyperlipidemia; Hypertension; ap3 - Immunization history:: Client reports receiving the 2nd dose of the Covid vaccine, Flu vaccine is up to date. - Social history:: Smoking status: Patient denies any tobacco usage or history of. ROS: 22:15 Constitutional: Negative for fever, chills, and weight loss. kb 22:15 MS/extremity: Positive for decreased range of motion, ecchymosis, pain, swelling, tenderness, of the right knee. 22:15 Skin: Positive for ecchymosis, of the right cheek. 22:15 All other systems are negative. Exam: 22:15 Constitutional: This is a well developed, well nourished patient who is awake, alert, kb and in no acute distress. Head/Face: Normocephalic, atraumatic. ENT: Moist Mucous membranes Cardiovascular: Regular rate and rhythm with a normal S1 and S2. No gallops, murmurs, or rubs. No pulse deficits. Respiratory: Respirations even and unlabored. No increased work of breathing. Talking in full sentences Neuro: Awake and alert, GCS 15, oriented to person, place, time, and situation. Moves all extremities. Normal gait. Psych: Awake, alert, with orientation to person, place and time. Behavior, mood, and affect are within normal limits. 22:15 Musculoskeletal/extremity: Extremities: grossly normal except: noted in the right knee: contusion, ecchymosis, pain, swelling, tenderness, ROM: limited active range of motion due to pain, Circulation is intact in all extremities. Sensation intact. 22:15 Skin: ecchymosis to right cheek. 22:43 ECG was reviewed by the Attending Physician. Vital Signs: 18:34 BP 145 / 66; Pulse 71; Resp 21; Temp 98.7; Pulse Ox 94% on 4 lpm NC; Weight 90.72 kg; ap3 Height 5 ft. 0 in. (152.40 cm); 21:30 BP 104 / 63; Pulse 66; Resp 19; Pulse Ox 92% on 3 lpm NC; ha1 22:30 BP 120 / 63; Pulse 66; Resp 20; Pulse Ox 95% on 3 lpm NC; ha1 23:29 BP 111 / 60; Pulse 68; Resp 20; Pulse Ox 96% on 3 lpm NC; ha1 12/16 00:40 BP 91 / 46; Pulse 66; Resp 20; Pulse Ox 94% on 3 lpm NC; ha1 01:25 BP 88 / 45; Pulse 63; Resp 21; Pulse Ox 95% on 3 lpm NC; ha1 02:30 BP 105 / 63; Pulse 76; Resp 20; Pulse Ox 95% on 3 lpm NC; ha1 02:38 Weight 23.6 kg; kd3 02:38 Body Mass Index 10.16 (23.60 kg, 152.40 cm) kd3 MDM: 12/15 18:40 Patient medically screened. kb 22:16 Data reviewed: vital signs, nurses notes. Data interpreted: Pulse oximetry: on room air kb is 92 %. Interpretation: normal. 23:43 Counseling: I had a detailed discussion with the patient and/or guardian regarding: the kb historical points, exam findings, and any diagnostic results supporting the discharge/admit diagnosis, lab results, radiology results, the need to transfer to another facility. ED course: Swelling and tightness has increased to medial aspect of right thigh. Dr robbins at bedside to evaluate as well. Recommends transfer to [place]. 23:46 ED course: Dr Robbins spoke with Dr Loredo at [place]. Transfer accepted. kb 12/15 18:43 Order name: CBC with Diff kb 12/15 18:43 Order name: Basic Metabolic Panel kb 12/15 18:43 Order name: CPK kb 12/15 18:43 Order name: Troponin High Sensitivity kb 12/15 19:14 Order name: Basic Metabolic Panel; Complete Time: 19:17 EDMS 12/15 19:14 Order name: Creatine Phosphokinase; Complete Time: 19:17 EDMS 12/15 19:14 Order name: Troponin High Sensitivity; Complete Time: 19:17 EDMS 12/15 19:43 Order name: CBC with Automated Diff; Complete Time: 20:41 EDMS 12/15 20:41 Order name: Manual Differential; Complete Time: 20:41 EDMS 12/15 21:17 Order name: Urine Microscopic Only kb 12/15 23:17 Order name: SARS RAPID la1 12/15 23:18 Order name: BNP la1 12/15 23:18 Order name: Procalcitonin la1 12/16 00:45 Order name: NT PRO-BNP EDMS 12/15 18:43 Order name: Knee Right 3 View XRAY kb 12/15 18:43 Order name: Femur Right XRAY kb 12/15 18:44 Order name: CT Head C Spine kb 12/15 18:44 Order name: CT Facial Bones W/O Con kb 12/15 18:44 Order name: Pelvis XRAY kb 12/15 19:37 Order name: CT; Complete Time: 19:42 EDMS 12/15 19:45 Order name: CT; Complete Time: 19:51 EDMS 12/15 20:13 Order name: RAD; Complete Time: 20:15 EDMS 12/15 20:13 Order name: RAD; Complete Time: 20:15 EDMS 12/15 23:14 Order name: Chest Single View XRAY kb 12/15 23:31 Order name: CT Chest Abdomen Pelvis W/O Contrast [facility] 12/15 23:33 Order name: US LE Results [employer] [facility] 12/16 01:13 Order name: SARS-COV-2 Antigen Rapid [facility] 12/16 01:55 Order name: Procalcitonin [facility] 12/16 02:06 Order name: Urine Dipstick-Ancillary [facility] 12/15 18:43 Order name: EKG; Complete Time: 18:45 kb 12/15 18:43 Order name: EKG - Nurse/Tech; Complete Time: 20:45 kb 12/15 21:17 Order name: Urine Dipstick-Ancillary (obtain specimen) kb EC:43 Rate is 71 beats/min. Rhythm is regular. Left axis deviation noted. MO interval is kb normal at 194 msec. QRS interval is normal at 100 msec. QT interval is normal at 469 msec. Administered Medications: 19:01 Drug: morphine 4 mg Route: IVP; Infused Over: 4 mins; Site: right antecubital; ap3 19:30 Follow up: Response: No adverse reaction; Pain is decreased; RASS: Alert and Calm (0) ha1 19:01 Drug: Zofran (Ondansetron) 4 mg Route: IVP; Site: right antecubital; ap3 19:30 Follow up: Response: No adverse reaction ha1 Disposition Summary: 12/15/21 23:46 Transfer Ordered Transfer Location: [facility] kb Reason: Higher level of care kb Condition: Stable kb Problem: new kb Symptoms: are unchanged kb Accepting Physician: Lorenzo BUTT(12/16/21 02:43) ha1 Diagnosis - Elevated white blood cell count kb - COPD/ Chronic obstructive pulmonary disease, unspecified kb - Fall on same level from slipping, tripping and stumbling without subsequent kb striking against object - Hematoma medial right thigh kb - Contusion of right knee kb - Contusion of right side of face kb - Pericardial effusion (noninflammatory) farzana Forms: - Medication Reconciliation Form kb - SBAR form kb Signatures: Dispatcher [employer] EDMS Anaid Hernandez, BRIDGET MÉNDEZ-Pradip Yan MD MD cha Prokisch, Amanda RN RN ap3 Hazel Spears RN RN ha1 Corrections: (The following items were deleted from the chart) 12/16 02:41 12/15 23:46 Lorenzo Loredo cha 12/16 02:43 02:41 DAQUANLorenzo Balderas cha ha1
--- NOTE | 2021-12-15 23:48 | ER ---
Nurse's Notes [facility] Name: Kaitlynn nSider Age: 76 yrs Sex: Female : 1945 Arrival Date: 12/15/2021 Time: 18:20 Bed 18 Private MD: Diagnosis: Elevated white blood cell count;COPD/ Chronic obstructive pulmonary disease, unspecified;Fall on same level from slipping, tripping and stumbling without subsequent striking against object;Hematoma medial right thigh;Contusion of right knee;Contusion of right side of face;Pericardial effusion (noninflammatory) Presentation: 12/15 18:20 Chief complaint: EMS states: patient was ambulating at home when she fell on wet tile ap3 and is reporting right knee pain. patient denies LOC, denies hitting her head and also denies being on blood thinners. Coronavirus screen: At this time, the client does not indicate any symptoms associated with coronavirus-19. Ebola Screen: No symptoms or risks identified at this time. Initial Sepsis Screen: Does the patient meet any 2 criteria? No. Patient's initial sepsis screen is negative. Does the patient have a suspected source of infection? No. Patient's initial sepsis screen is negative. Risk Assessment: Do you want to hurt yourself or someone else? Patient reports no desire to harm self or others. Onset of symptoms was December 15, 2021. 18:20 Method Of Arrival: EMS: [facility] ap3 18:20 Acuity: RHINA 3 ap3 Triage Assessment: 18:21 General: Appears in no apparent distress. Behavior is calm, cooperative. Pain: ap3 Complains of pain in right knee Pain began suddenly. EENT: Parent/caregiver reports the patient having hard of hearing in right ear. Neuro: Level of Consciousness is awake, alert, obeys commands, Oriented to person, place, time, situation, Speech is normal. Cardiovascular: Patient's skin is warm and dry. Respiratory: Airway is patent Respiratory effort is even, unlabored, Respiratory pattern is regular, symmetrical. Musculoskeletal: Swelling present in right knee Reports pain in right knee. Historical: - Allergies: 18:21 Tape; ap3 - PMHx: 18:21 COPD; Diabetes - NIDDM; High Cholesterol; Hyperlipidemia; Hypertension; ap3 - Immunization history:: Client reports receiving the 2nd dose of the Covid vaccine, Flu vaccine is up to date. - Social history:: Smoking status: Patient denies any tobacco usage or history of. Screenin:33 Abuse screen: Denies threats or abuse. Nutritional screening: No deficits noted. ap3 Tuberculosis screening: No symptoms or risk factors identified. Fall Risk Fall in past 12 months (25 points). Secondary diagnosis (15 points) impaired mobility, No IV (0 pts). Ambulatory Aid- None/Bed Rest/Nurse Assist (0 pts). Gait- Normal/Bed Rest/Wheelchair (0 pts) Mental Status- Oriented to own ability (0 pts). Total Samuels Fall Scale indicates Low Risk Score (25-44 pts). Fall prevention measures have been instituted. Side Rails Up X 2 Placed close to Nursing Station Frequent Obs/Assesments occuring As available Patient and Family Educated on Fall Prevention Program and strategies. Assessment: 18:35 Reassessment: patient reports wearing home oxygen. ap3 19:55 General: Appears uncomfortable, Behavior is cooperative. Pain: Complains of pain in ha1 right leg and right knee. Neuro: Level of Consciousness is awake, alert, obeys commands, Oriented to person, place, time, situation. Cardiovascular: Patient's skin is warm and dry. Respiratory: Airway is patent Trachea midline Respiratory effort is even, Respiratory pattern is symmetrical. GI: Abdomen is non-distended, obese. Musculoskeletal: Reports falling at home. after the fall she experienced pain in the right leg. 20:55 Reassessment: Patient and/or family updated on plan of care and expected duration. Pain ha1 level reassessed. Patient is alert, oriented x 3, equal unlabored respirations, skin warm/dry/pink. 21:50 Reassessment: Patient and/or family updated on plan of care and expected duration. Pain ha1 level reassessed. Patient is alert, oriented x 3, equal unlabored respirations, skin warm/dry/pink. 22:50 Reassessment: Patient and/or family updated on plan of care and expected duration. Pain ha1 level reassessed. Patient is alert, oriented x 3, equal unlabored respirations, skin warm/dry/pink. 23:27 Reassessment: Patient and/or family updated on plan of care and expected duration. Pain ha1 level reassessed. Patient is alert, oriented x 3, equal unlabored respirations, skin warm/dry/pink. blisters noticed at the right knee area. notified care provider. care provider at bedside. 12/16 00:39 Reassessment: Patient and/or family updated on plan of care and expected duration. Pain ha1 level reassessed. Patient is alert, oriented x 3, equal unlabored respirations, skin warm/dry/pink. explained the need for transfer. 01:33 Reassessment: Patient and/or family updated on plan of care and expected duration. Pain ha1 level reassessed. Patient is alert, oriented x 3, equal unlabored respirations, skin warm/dry/pink. going to CT. 02:30 Reassessment: Patient and/or family updated on plan of care and expected duration. Pain ha1 level reassessed. Patient is alert, oriented x 3, equal unlabored respirations, skin warm/dry/pink. Vital Signs: 12/15 18:34 BP 145 / 66; Pulse 71; Resp 21; Temp 98.7; Pulse Ox 94% on 4 lpm NC; Weight 90.72 kg; ap3 Height 5 ft. 0 in. (152.40 cm); 21:30 BP 104 / 63; Pulse 66; Resp 19; Pulse Ox 92% on 3 lpm NC; ha1 22:30 BP 120 / 63; Pulse 66; Resp 20; Pulse Ox 95% on 3 lpm NC; ha1 23:29 BP 111 / 60; Pulse 68; Resp 20; Pulse Ox 96% on 3 lpm NC; ha1 12/16 00:40 BP 91 / 46; Pulse 66; Resp 20; Pulse Ox 94% on 3 lpm NC; ha1 01:25 BP 88 / 45; Pulse 63; Resp 21; Pulse Ox 95% on 3 lpm NC; ha1 02:30 BP 105 / 63; Pulse 76; Resp 20; Pulse Ox 95% on 3 lpm NC; ha1 02:38 Weight 23.6 kg; kd3 02:38 Body Mass Index 10.16 (23.60 kg, 152.40 cm) kd3 ED Course: 12/15 18:20 Patient arrived in ED. ap3 18:21 Triage completed. ap3 18:33 Alejandra Barreto, KARL is Primary Nurse. ap3 18:34 Arm band placed on right wrist. ap3 18:34 Patient has correct armband on for positive identification. Bed in low position. Call ap3 light in reach. Side rails up X2. Pulse ox on. NIBP on. Door closed. Noise minimized. Warm blanket given. 18:40 [facility]aid [facility]C [facility] kb 18:40 Hank Viramontes MD is Attending Physician. kb 18:47 Inserted saline lock: 20 gauge in right antecubital area, using aseptic technique. ap3 Blood collected. 23:32 Attending Physician role handed off by Hank Viramontes MD [facility] 23:32 Pradip Robbins MD is Attending Physician. [facility] 12/16 00:29 Procalcitonin Sent. ha1 00:29 BNP Sent. ha1 00:29 SARS RAPID Sent. ha1 02:42 No provider procedures requiring assistance completed. Patient transferred, IV remains ha1 in place. 12:37 Chest Single View XRAY In Process Unspecified. EDMS 12:39 US LE [employer] In Process Unspecified. EDMS 12:39 CT Chest Abdomen Pelvis W/O Contrast In Process Unspecified. EDMS Administered Medications: 12/15 19:01 Drug: morphine 4 mg Route: IVP; Infused Over: 4 mins; Site: right antecubital; ap3 19:30 Follow up: Response: No adverse reaction; Pain is decreased; RASS: Alert and Calm (0) ha1 19:01 Drug: Zofran (Ondansetron) 4 mg Route: IVP; Site: right antecubital; ap3 19:30 Follow up: Response: No adverse reaction ha1 Medication: 18:34 VIS not applicable for this client. ap3 Outcome: 23:46 ER care complete, transfer ordered by . kb 12/16 02:42 Transferred by ground EMS to [facility], Note: by [facility] ha1 Condition: stable 02:43 Patient left the ED. ha1 Signatures: Dispatcher [employer] EDMS Anaid Hernandez FNP-C FNP-Ckb Pradip Robbins MD MD cha Prokisch, Amanda RN RN ap3 Lizeth Purdy RN RN kd3 Hazel Spears RN RN ha1 Corrections: (The following items were deleted from the chart) 01:41 12/15 19:30 Response: No adverse reaction; Pain is decreased; RASS: Alert and Calm (0) ha1 ha1
[2021-12-16 01:13] LABS: SARS-CoV-2 Antigen Rapid Res Negative (Negative)
[2021-12-16] MEDS ORDERED: NA CHLORIDE 0.9% 250 ML ONE (01:15)
[2021-12-16 02:06] LABS: Urine Blood Negative (Negative); Urine Glucose 3+ (Negative); Urine Protein 2+ (Negative); Urine Specific Gravity 1.015 (1.005-1.030); Urine pH 5.5 (5.0-7.0)
[2021-12-16 02:44] LABS: Urine RBC <5 /HPF (None Seen)
[2021-12-16 02:54] VITALS: TEMP 98.7
[2021-12-16 03:13] VITALS: O2SAT 95
[2021-12-16 03:15] VITALS: BP 105/63
--- NOTE | 2021-12-16 07:36 | EKG ---
Test Date: 2021-12-15 Test Time: 20:35:02 Process Coordinator: JOANNE MEASUREMENT RESULTS: Intervals: Rate: 71 GA: 194 QRSD: 100 QT: 432 QTc: 469 [place]: P: 84 GA: 194 QRS: -43 T: 90 INTERPRETIVE STATEMENTS: Normal sinus rhythm Left axis deviation Pulmonary disease pattern Septal infarct, age undetermined Abnormal ECG Compared to ECG 05/22/2021 16:10:05 Left-axis deviation now present Left anterior fascicular block no longer present Myocardial infarct finding still present Electronically Signed On 12-16-21 07:35:08 CDT by Jacob Thomas
--- NOTE | 2021-12-16 13:10 | RAD REPORT ---
EXAM DESCRIPTION: US - Lower Extremity Artery [employer] - 12/16/2021 12:18 am CLINICAL HISTORY: The patient is 76 years old and is Female; DEFORMITY AND PAIN TECHNIQUE: Real-time duplex ultrasound scan of the right lower extremity arteries integrating B-mode two-dimensional vascular structure, Doppler spectral analysis and color flow Doppler imaging. COMPARISON: No relevant prior studies available. FINDINGS: RIGHT COMMON FEMORAL ARTERY: No acute findings. No occlusion or significant stenosis o n color flow and spectral Doppler imaging. Normal waveform. RIGHT SUPERFICIAL FEMORAL ARTERY: No acute findings of the right proximal or mid SFA, with no occlu ilana, or significant stenosis demonstrated on color flow or spectral Doppler imaging. Normal waveform s. Distal right SFA is obscured. RIGHT POPLITEAL ARTERY: No acute findings. No occlusion or significant stenosis on color flow and spectral Doppler imaging. Normal waveform. RIGHT CALF/FOOT ARTERIES: No acute findings. No occlusion or significant stenosis on color flow a nd spectral Doppler imaging. Normal waveform. SOFT TISSUES: Avascular heterogenously hypoechoic mass/collection measuring at least 9 cm in greatest diameter demonstrated within the mid right thigh, obscuring the distal SFA. IMPRESSION: 1. Avascular heterogenously hypoechoic mass/collection measuring at least 9 cm in grea test diameter demonstrated within the mid right thigh, obscuring the distal SFA. While appearance is nonspecific, this could reflect a posttraumatic hematoma or a postprocedural seroma in the appropriat e clinical context. A mass is felt unlikely given lack of vascularity on Doppler imaging. 2. No acute right lower extremity arterial abnormality is identified. Electronically signed by: Michael Alejo MD 12/16/2021 1:12 AM CDT Due to temporary technical issues with the PACS/Fluency reporting system, reports are being signed by the in house radiologists without review as a courtesy to insure prompt reporting. The interpreting radiologist is fully responsible for the content of the report.
--- NOTE | 2021-12-16 13:17 | RAD REPORT ---
EXAM DESCRIPTION: CT - Chest Abd Pelvis Wo Con - 12/16/2021 1:52 am CLINICAL HISTORY: The patient is 76 years old and is Female; DEFORMITY AND PAIN TECHNIQUE: Real-time duplex ultrasound scan of the right lower extremity arteries integrating B-mode two-dimensional vascular structure, Doppler spectral analysis and color flow Doppler imaging. COMPARISON: No relevant prior studies available. FINDINGS: RIGHT COMMON FEMORAL ARTERY: No acute findings. No occlusion or significant stenosis o n color flow and spectral Doppler imaging. Normal waveform. RIGHT SUPERFICIAL FEMORAL ARTERY: No acute findings of the right proximal or mid SFA, with no occlu ilana, or significant stenosis demonstrated on color flow or spectral Doppler imaging. Normal waveform s. Distal right SFA is obscured. RIGHT POPLITEAL ARTERY: No acute findings. No occlusion or significant stenosis on color flow and spectral Doppler imaging. Normal waveform. RIGHT CALF/FOOT ARTERIES: No acute findings. No occlusion or significant stenosis on color flow a nd spectral Doppler imaging. Normal waveform. SOFT TISSUES: Avascular heterogenously hypoechoic mass/collection measuring at least 9 cm in greatest diameter demonstrated within the mid right thigh, obscuring the distal SFA. IMPRESSION: 1. Avascular heterogenously hypoechoic mass/collection measuring at least 9 cm in grea test diameter demonstrated within the mid right thigh, obscuring the distal SFA. While appearance is nonspecific, this could reflect a posttraumatic hematoma or a postprocedural seroma in the appropriat e clinical context. A mass is felt unlikely given lack of vascularity on Doppler imaging. 2. No acute right lower extremity arterial abnormality is identified. Electronically signed by: Michael Alejo MD 12/16/2021 1:12 AM CDT Due to temporary technical issues with the PACS/Fluency reporting system, reports are being signed by the in house radiologists without review as a courtesy to insure prompt reporting. The interpreting radiologist is fully responsible for the content of the report.
--- NOTE | 2021-12-16 13:35 | RAD REPORT ---
EXAM DESCRIPTION: RAD - Chest Single View - 12/16/2021 12:08 am CLINICAL HISTORY: The patient is 76 years old and is Female; Dyspnea TECHNIQUE: Frontal view of the chest. COMPARISON: No relevant prior studies available. FINDINGS: LUNGS: Bilateral perihilar hazy opacities. No other focal consolidation within the visua lized lung lewis. PLEURAL SPACE: Possible trace right-sided pleural effusion. Cannot exclude a left pleural effusion. No pneumothorax. No pneumomediastinum. HEART: Marked enlargement of the cardiac silhouette, even allowing for positioning and portable gayla hnique, obscuring the left mid and lower hemithorax. Of uncertain chronicity. MEDIASTINUM: See above. BONES/JOINTS: Multilevel spondylosis. IMPRESSION: 1. Enlargement of the cardiac silhouette, of uncertain chronicity, with pulmonary vasc ular congestion versus mild central pulmonary edema. Left mid and inferior lung lewis are obscured. 2. Possible trace right-sided pleural effusion. Cannot exclude a left pleural effusion. Electronically signed by: Michael Alejo MD 12/16/2021 1:05 AM CDT Due to temporary technical issues with the PACS/Fluency reporting system, reports are being signed by the in house radiologists without review as a courtesy to insure prompt reporting. The interpreting radiologist is fully responsible for the content of the report.
== END 2021-12-16 02:43 | disposition short-term general hospital (02) ==
LOC: ER 18:07
DX: S80.01XA Contusion of right knee, initial encounter (principal); S70.11XA Contusion of right thigh, initial encounter; S00.83XA Contusion of other part of head, initial encounter; W01.0XXA Fall on same level from slipping, tripping and stumbling without subsequent striking against object, initial encounter; Y92.009 Unspecified place in unspecified non-institutional (private) residence as the place of occurrence of the external cause; I31.39 Other pericardial effusion (noninflammatory); D72.829 Elevated white blood cell count, unspecified; E11.9 Type 2 diabetes mellitus without complications; I10 Essential (primary) hypertension; J44.9 Chronic obstructive pulmonary disease, unspecified; E78.5 Hyperlipidemia, unspecified; E78.00 Pure hypercholesterolemia, unspecified; Z91.048 Other nonmedicinal substance allergy status; Z20.822 Contact with and (suspected) exposure to COVID-19
CPT/HCPCS: 93005; 85025; 80048; 36415; 82550; 84484; 84145; 83880; 70450; 71250; 72125; 70486; 76377; 74176; 71045; 72170; 73552; 93926; 96375; 96374; 99285; 87811; J7050; J2405; 81003; 81015

== ENCOUNTER 2023-09-06 11:57 | Inpatient (IN) | payer OTHER ==
[2023-09-06 12:48] LABS: Absolute Basophils 0.1 K/uL (0-0.5); Absolute Eosinophils 0.2 K/uL (0-0.5); Absolute Lymphocytes (CBC) 1.8 K/uL (0.7-4.9); Absolute Monocytes 0.5 K/uL (0.1-1.3); Absolute Neutrophil 5.8 K/uL (1.8-8.0); Basophils % 0.7 % (0-1.3); Eosinophils % 2.1 % (0-4.4); Hematocrit 40.6 % (36.0-45.0); Lymphocytes % 21.3 % (15.3-44.8); MCH 30.6 pg (27.0-35.0); MCHC 32.1 g/dL (32.0-36.0); MCV 95.4 fL (80-100); MPV 10.4 fL (7.6-11.3); Neutrophils % 69.9 % (41.7-73.7); Nucleated Red Blood Cells % 0.1 % (0-0); Platelets 161 thou/uL (152-406); RBC Red Blood Cell Count 4.26 M/uL (3.86-4.86); Red Cell Distribution Width 14.7 % (12.1-15.2)
[2023-09-06 13:02] LABS: Albumin 3.1 g/dL (3.4-5.0); Albumin/Globulin Ratio 0.7 (1.1-1.8); Anion Gap 5.6 mEq/L (5.0-15.0); Bilirubin Total 0.5 mg/dL (0.2-1.0); Globulin 4.2 g/dL (2.3-3.5); Potassium 3.6 mEq/L (3.5-5.1); Protein, Total 7.3 g/dL (6.4-8.2); Troponin High Sensitivity 24.1 pg/mL (<58.9)
--- NOTE | 2023-09-06 13:03 | RAD REPORT ---
EXAM DESCRIPTION: CT - Head Brain Wo Cont - 09/06/2023 12:54 pm CLINICAL HISTORY: CONFUSED Headache, drowsiness, syncope, alteration of consciousness COMPARISON: <Comparisons> TECHNIQUE: All CT scans are performed using dose optimization technique as appropriate and may inclu de automated exposure control or mA/KV adjustment according to patient size. FINDINGS: No intracranial hemorrhage, hydrocephalus or extra-axial fluid collection.Mild generalized brain atrophy is present with mild periventricular and deep white matter chronic microvascular ische henry changes.No areas of brain edema or evidence of midline shift. The paranasal sinuses and mastoids are clear. The calvarium is intact. IMPRESSION: No acute intracranial abnormality.
--- NOTE | 2023-09-06 13:18 | RAD REPORT ---
EXAM DESCRIPTION: RAD - Chest Single View - 09/06/2023 1:12 pm CLINICAL HISTORY: Altered mental status Chest pain. COMPARISON: <Comparisons> FINDINGS: Portable technique limits examination quality. Mild pulmonary edema pattern is seen. The heart is significantly enlarged. No displaced fractures. IMPRESSION: Mild CHF pattern suspected.
[2023-09-06 14:42] LABS: Specific Gravity 1.014 (1.005-1.030); Sqamous Epithelial None Seen /HPF (None Seen); Urine Bacteria None Seen /HPF (<20); Urine Bilirubin NEGATIVE (Negative); Urine Blood Trace (Negative); Urine Clarity Extremely Turbid (Clear); Urine Color Colorless (Yellow); Urine Culture Reflex Order REFLEXED; Urine Glucose 2+ (Negative); Urine Ketones NEGATIVE (Negative); Urine Microscopic Reflex YN ORDER UMIC; Urine Nitrite NEGATIVE (Negative); Urine Protein 1+ (Negative); Urine Urobilinogen Normal (Normal); Urine WBC >50 /HPF (<5); Urine WBC Clump Moderate /HPF (None Seen); Urine Yeast (Budding) Moderate /HPF (None Seen); Urine pH 5.5 (5.0-7.0)
--- NOTE | 2023-09-06 15:04 | ER ---
Nurse's Notes [facility] Name: Kaitlynn Snider Age: 78 yrs Sex: Female : 1945 Arrival Date: 09/06/2023 Time: 11:57 Bed 5 Private MD: Diagnosis: Urosepsis, early shock, lactic acidosis Presentation: 09/05 12:04 Chief complaint: EMS states: called out by family for pt "not acting herself" that as6 started today. family was worried about a possible UTI. Coronavirus screen: At this time, the client does not indicate any symptoms associated with coronavirus-19. Ebola Screen: No symptoms or risks identified at this time. Initial Sepsis Screen: Does the patient meet any 2 criteria? No. Patient's initial sepsis screen is negative. Does the patient have a suspected source of infection? No. Patient's initial sepsis screen is negative. Risk Assessment: Do you want to hurt yourself or someone else? Patient reports no desire to harm self or others. Onset of symptoms was September 06, 2023. 12:04 Method Of Arrival: EMS: [facility] as6 12:04 Acuity: RHINA 3 as6 Triage Assessment: 19:24 General: Appears. bp Historical: - Allergies: 12:06 Tape; as6 - PMHx: 12:06 COPD; Diabetes - NIDDM; High Cholesterol; Hyperlipidemia; Hypertension; as6 - Immunization history:: Adult Immunizations up to date. - Infectious Disease History:: Denies. - Social history:: Smoking status: unknown. Screenin:23 [facility] ED Fall Risk Assessment (Adult) History of falling in the last 3 months, bp including since admission Yes- single mechanical fall (1 pt) Confusion or Disorientation Yes (5 pts) Intoxicated or Sedated No (0 pts) Impaired Gait No (0 pts) Mobility Assist Device Used No (0 pt) Altered Elimination No (0 pt) Score/Fall Risk Level 0 - 2 = Low Risk Oriented to surroundings, Maintained a safe environment, Educated pt \\T\\ family on fall prevention, incl call for assistance when getting out of bed, Assessed \\T\\ reinforced patient's understanding of fall precautions, Used ambulatory aids as needed (educated on \\T\\ assisted with). Abuse screen: Denies threats or abuse. Nutritional screening: No deficits noted. Tuberculosis screening: No symptoms or risk factors identified. Assessment: 18:58 General: Report faxed to 4th floor, Receipt confirmed with Renetta. . me1 Vital Signs: 12:04 BP 185 / 82; Pulse 78; Resp 16 S; Temp 98.7(O); Pulse Ox 94% on R/A; Weight 83.01 kg as6 (R); Height 4 ft. 11 in. ; Pain 0/10; 13:00 BP 206 / 93; Pulse 75; Resp 16; Pulse Ox 94% on R/A; me1 14:00 BP 186 / 94; Pulse 72; Resp 17; Pulse Ox 93% on R/A; me1 15:00 BP 191 / 88; Pulse 72; Resp 17; Pulse Ox 93% on R/A; me1 16:00 BP 191 / 88; Pulse 78; Resp 16; Pulse Ox 94% on R/A; me1 17:00 BP 216 / 99; Pulse 69; Resp 17; Pulse Ox 94% on R/A; me1 18:00 BP 206 / 95; Pulse 77; Resp 16; Pulse Ox 93% on R/A; me1 18:00 BP 112 / 73; Pulse 78; Resp 18; Pulse Ox 92% on R/A; me1 19:25 BP 145 / 73; Pulse 80; Resp 20; Temp 98.7; Pulse Ox 92% on R/A; Pain 0/10; bp 12:04 Body Mass Index 36.96 (83.01 kg, 149.86 cm) as6 12:04 Pain Scale: Adult as6 19:25 Pain Scale: Adult bp [place] Coma Score: 19:25 Eye Response: spontaneous(4). Motor Response: obeys commands(6). Verbal Response: bp oriented(5). Total: 15. ED Course: 12:04 Patient arrived in ED. as6 12:06 Betsy Broussard, KARL is Primary Nurse. me1 12:06 Triage completed. as6 12:07 Fouzia De Jesus MD is Attending Physician. sp3 12:07 Arm band placed on. as6 12:07 Bed in low position. Call light in reach. Side rails up X2. Client placed on continuous as6 cardiac and pulse oximetry monitoring. NIBP monitoring applied. 12:15 First set of blood cultures drawn by me. bp 12:30 Initial lab(s) drawn, by me, sent to lab. Second set of blood cultures drawn by me. bp 12:34 Inserted saline lock: 22 gauge in right antecubital area, using aseptic technique. bp Blood collected. 12:54 CT Head Brain wo Cont In Process Unspecified. EDMS 13:13 Chest Single View XRAY In Process Unspecified. EDMS 14:27 Urinalysis w/ reflexes Sent. me1 14:27 Urine collected: straight cath specimen, cloudy. me1 15:02 Barrington Fraser MD is Hospitalizing Provider. sp3 15:29 Urine Culture Sent. me1 19:23 Provided Education on: NEED FOR ADMISSION. bp 19:23 No provider procedures requiring assistance completed. Patient admitted, IV remains in bp place. 19:25 Repositioned patient. Bath given. Cleaned of incontinence. Linen changed. bp Administered Medications: 15:29 Drug: Cefepime IVPB 1 grams IVPB at 200 ml/hr once over 30 mins; (mix in NS 100 mL) me1 Route: IVPB; Rate: 200 ml/hr; Infused Over: 30 mins; Site: right antecubital; 19:00 Follow up: IV Status: Completed infusion me1 15:29 Drug: NS 0.9% IV (30 ml/kg) 30 ml/kg IV at bolus once; Sepsis Protocol Route: IV; Rate: me1 bolus; Site: right antecubital; 18:59 Follow up: IV Status: Completed infusion me1 15:29 Drug: Insulin Regular Human IVP 10 units IVP once {Co-Signature: bp (Fuentes Denny me1 RN).} Route: IVP; Site: right antecubital; 18:59 Follow up: Response: No adverse reaction me1 18:06 Drug: hydrALAZINE IVP 10 mg IVP once Route: IVP; Site: right antecubital; me1 18:59 Follow up: Response: No adverse reaction; Blood pressure is lowered me1 Medication: 19:23 VIS not applicable for this client. bp Outcome: 15:04 Decision to Hospitalize by Provider. sp3 19:23 Admitted to [facility] accompanied by nurse, via stretcher, with chart, bp 19:23 Condition: stable 19:23 Instructed on the need for admit, Demonstrated understanding of instructions, follow-up care, 19:48 Patient left the ED. rv1 Signatures: Dispatcher [employer] Fuentes Kim, RN RN bp Fouzia De Jesus MD MD sp3 Alvino Holland RN RN as6 Precious Potter rv1 Betsy Broussard RN RN me1 Fuentes Denny RN bp
--- NOTE | 2023-09-06 15:04 | EDPHYS ---
Physician Documentation [facility] Name: Kaitlynn Snider Age: 78 yrs Sex: Female : 1945 Arrival Date: 09/06/2023 Time: 11:57 Bed 5 Private MD: ED Physician Fouzia De Jesus HPI: 09/05 13:06 This 78 yrs old Female presents to ER via EMS with complaints of altered mental status. sp3 13:06 78-year-old male with history of COPD, diabetes, hyperlipidemia, hypertension presents sp3 to the ED chief complaint altered mental status as per family. EMS states that family stated that patient is "not acting right" and seems very confused. This is apparently happened before during a UTI. History, ROS and physical limited secondary to altered mental status.. Historical: - Allergies: 12:06 Tape; as6 - PMHx: 12:06 COPD; Diabetes - NIDDM; High Cholesterol; Hyperlipidemia; Hypertension; as6 - Immunization history:: Adult Immunizations up to date. - Infectious Disease History:: Denies. - Social history:: Smoking status: unknown. ROS: 13:07 Unable to obtain ROS due to altered mental status, sp3 Exam: 13:07 Constitutional: This is a well developed, well nourished patient who is awake, alert, sp3 and in no acute distress. Head/Face: Normocephalic, atraumatic. Eyes: Pupils equal round and reactive to light, extra-ocular motions intact. Lids and lashes normal. Conjunctiva and sclera are non-icteric and not injected. Cornea within normal limits. Periorbital areas with no swelling, redness, or edema. Chest/axilla: Normal chest wall appearance and motion. Nontender with no deformity. No lesions are appreciated. Cardiovascular: Regular rate and rhythm with a normal S1 and S2. No gallops, murmurs, or rubs. Normal PMI, no JVD. No pulse deficits. Respiratory: Lungs have equal breath sounds bilaterally, clear to auscultation and percussion. No rales, rhonchi or wheezes noted. No increased work of breathing, no retractions or nasal flaring. Abdomen/GI: Soft, non-tender, with normal bowel sounds. No distension or tympany. No guarding or rebound. No evidence of tenderness throughout. Back: No spinal tenderness. No costovertebral tenderness. Full range of motion. Skin: Warm, dry with normal turgor. Normal color with no rashes, no lesions, and no evidence of cellulitis. 13:07 Neuro: Patient alert however minimally verbal and confused. Patient is maintaining her own airway. There appears to be no gross motor deficits. Gaze is parallel. Gait not tested., Vital Signs: 12:04 BP 185 / 82; Pulse 78; Resp 16 S; Temp 98.7(O); Pulse Ox 94% on R/A; Weight 83.01 kg as6 (R); Height 4 ft. 11 in. ; Pain 0/10; 13:00 BP 206 / 93; Pulse 75; Resp 16; Pulse Ox 94% on R/A; me1 14:00 BP 186 / 94; Pulse 72; Resp 17; Pulse Ox 93% on R/A; me1 15:00 BP 191 / 88; Pulse 72; Resp 17; Pulse Ox 93% on R/A; me1 16:00 BP 191 / 88; Pulse 78; Resp 16; Pulse Ox 94% on R/A; me1 17:00 BP 216 / 99; Pulse 69; Resp 17; Pulse Ox 94% on R/A; me1 18:00 BP 206 / 95; Pulse 77; Resp 16; Pulse Ox 93% on R/A; me1 18:00 BP 112 / 73; Pulse 78; Resp 18; Pulse Ox 92% on R/A; me1 19:25 BP 145 / 73; Pulse 80; Resp 20; Temp 98.7; Pulse Ox 92% on R/A; Pain 0/10; bp 12:04 Body Mass Index 36.96 (83.01 kg, 149.86 cm) as6 12:04 Pain Scale: Adult as6 19:25 Pain Scale: Adult bp [place] Coma Score: 19:25 Eye Response: spontaneous(4). Motor Response: obeys commands(6). Verbal Response: bp oriented(5). Total: 15. MDM: 12:13 Patient medically screened. sp3 13:09 Data reviewed: vital signs, nurses notes, lab test result(s), EKG, radiologic studies. sp3 ED course: 78-year-old female with PMH above now with altered mental status. Differential diagnosis is broad includes TIA/CVA spectrum, infection including UTI and/or pneumonia, electrolyte disturbance, among others. Clinically patient is not septic or in shock. Workup will include CT scan of the head, laboratory values, and general supportive care. Disposition pending workup and patient course with probable admission.. 15:01 ED course: UA demonstrates infection as a source and lactate is 2.1. Cefepime ordered sp3 along with bolus normal saline.. 09/05 12:14 Order name: Blood Culture Adult (2) sp3 09/05 12:14 Order name: CBC with Diff; Complete Time: 13:19 sp3 09/05 12:14 Order name: CMP; Complete Time: 13:19 sp3 09/05 12:14 Order name: Lactate w/ 2H reflex if indic.; Complete Time: 13:19 sp3 09/05 12:14 Order name: Urinalysis w/ reflexes; Complete Time: 14:55 sp3 09/05 12:14 Order name: Troponin High Sensitivity; Complete Time: 13:19 sp3 09/05 14:47 Order name: Urine Culture EDMS 09/05 15:05 Order name: Ghost Lactate-NO COLLECT Timer EDMS 09/05 15:43 Order name: Lactate Sepsis 2 HR Follow-up EDMS 09/05 17:06 Order name: Basic Metabolic Panel EDMS 09/05 17:06 Order name: Basic Metabolic Panel EDMS 09/05 17:06 Order name: CBC with Automated Diff EDMS 09/05 17:06 Order name: CBC with Automated Diff EDMS 09/05 17:06 Order name: Magnesium EDMS 09/05 17:06 Order name: Magnesium EDMS 09/05 17:06 Order name: Phosphorus EDMS 09/05 17:06 Order name: Phosphorus EDMS 09/05 17:06 Order name: Troponin High Sensitivity EDMS 09/05 17:06 Order name: Troponin High Sensitivity EDMS 09/05 17:06 Order name: Troponin High Sensitivity EDMS 09/05 17:07 Order name: Hemoglobin A1c EDMS 09/05 17:07 Order name: Hemoglobin A1c EDMS 09/05 12:14 Order name: Chest Single View XRAY; Complete Time: 13:19 sp3 09/05 12:25 Order name: CT Head Brain wo Cont; Complete Time: 13:19 sp3 09/05 17:06 Order name: Physical Therapy Consult EDMS 09/05 12:14 Order name: Cardiac monitoring; Complete Time: 12:33 sp3 09/05 12:14 Order name: EKG - Nurse/Tech; Complete Time: 15:52 sp3 09/05 12:14 Order name: IV Saline Lock - Large Bore; Complete Time: 12:33 sp3 09/05 12:14 Order name: Labs collected and sent; Complete Time: 12:33 sp3 09/05 12:14 Order name: O2 Per Protocol; Complete Time: 12:33 sp3 09/05 12:14 Order name: O2 Sat Monitoring; Complete Time: 12:33 sp3 09/05 12:14 Order name: Vital Signs; Complete Time: 12:33 sp3 Administered Medications: 15:29 Drug: Cefepime IVPB 1 grams IVPB at 200 ml/hr once over 30 mins; (mix in NS 100 mL) me1 Route: IVPB; Rate: 200 ml/hr; Infused Over: 30 mins; Site: right antecubital; 19:00 Follow up: IV Status: Completed infusion me1 15:29 Drug: NS 0.9% IV (30 ml/kg) 30 ml/kg IV at bolus once; Sepsis Protocol Route: IV; Rate: me1 bolus; Site: right antecubital; 18:59 Follow up: IV Status: Completed infusion me1 15:29 Drug: Insulin Regular Human IVP 10 units IVP once {Co-Signature: bp (Fuentes Denny me1 RN).} Route: IVP; Site: right antecubital; 18:59 Follow up: Response: No adverse reaction me1 18:06 Drug: hydrALAZINE IVP 10 mg IVP once Route: IVP; Site: right antecubital; me1 18:59 Follow up: Response: No adverse reaction; Blood pressure is lowered me1 Disposition: 15:02 Critical Care:. sp3 Disposition Summary: 09/06/23 15:04 Hospitalization Ordered Notes: Hospitalization Status: Inpatient Admission sp3 Provider: Barrington Fraser3 Location: Telemetry/[facility]Sur (Inpatient) sp3 Condition: Stable sp3 Problem: an acute exacerbation sp3 Symptoms: have worsened sp3 Bed/Room Type: Standard sp3 Room Assignment: 404(09/06/23 19:02) bc6 Diagnosis - Urosepsis, early shock, lactic acidosis sp3 Forms: - Medication Reconciliation Form sp3 - SBAR form sp3 - Leadership Thank You Letter sp3 Critical care time excluding procedures: 15:02 Critical care time: Bedside Care: 20 minutes, Consultation: 10 minutes. Total time: 30 sp3 minutes Signatures: Dispatcher [employer] Fouzia Hassan MD MD sp3 Alvino Holland RN RN as6 Martha Ambrocio 6 Betsy Broussard RN RN sc1 Fuentes Denny RN bp Corrections: (The following items were deleted from the chart) 17:27 15:04 sp3 bc6 17:28 17:27 418 bc6 bc6 19:02 17:28 419 bc6 bc6
[2023-09-06] MEDS ORDERED: INSULIN REGULAR (HUMAN) 100 UNIT/ML ONE (15:15)
[2023-09-06] MEDS ORDERED: NA CHLORIDE 0.9% 3,000 ML ONE (15:16)
[2023-09-06] MEDS ORDERED: CEFEPIME 1 GM/VIAL ONE (15:16)
[2023-09-06] MEDS ORDERED: NA CHLORIDE 0.9% 100 ML ONE (15:16)
--- NOTE | 2023-09-06 16:06 | P.HP ---
Certification for Inpatient Patient admitted to: Inpatient With expected LOS: >2 Midnights Practitioner: I am a practitioner with admitting privileges, knowledge of patient current condition, hospital course, and medical plan of care. Services: Services provided to patient in accordance with Admission requirements found in Title 42 Section 412.3 of the Code of Federal Regulations Patient History Date of Service: 09/06/23 Reason for admission: UTI History of Present Illness: Kaitlynn Moralez is a 78-year-old female with past medical history of COPD, diabetes mellitusNIDDM, HLD, hypercholesterolemia, hypertension who presents to the ED with chief complaint of altered mental status. She has a history of UTIs and this is her normal state of mind when she is experiencing a UTI. Laboratory evaluation with lactic acid 2.1 now cleared at 1.7, BUN/creatinine 52/1.69, GFR 31, serum glucose 315, UA positive for leukocyte esterase 500 and budding yeast moderate. Initial vitals BP 185 / 82; Pulse 78; Resp 16 S; Temp 98.7(O); Pulse Ox 94% on R/A Head CT without contrast reports "No acute intracranial abnormality" Chest x-ray report "Mild CHF pattern suspected" Kaitlynn be admitted to hospitalist service for further treatment of urinary tract infection with IV antibiotics. Allergies No Known Allergies Allergy (Unverified 05/23/21 06:12) Home Medications: Allopurinol 300 mg PO BEDTIME 05/24/21 Aspirin 81 mg PO DAILY 05/24/21 Buspirone HCl [Buspar] 10 mg PO TID 05/24/21 Calcium Carbonate [Calcium] 600 mg PO DAILY 05/24/21 Cetirizine HCl [Zyrtec] 10 mg PO DAILY 05/24/21 Cholecalciferol (Vitamin D3) [Vitamin D3] 1,000 unit PO DAILY 05/24/21 Dapagliflozin Propanediol [Farxiga] 5 mg PO DAILY 05/24/21 Doxazosin Mesylate 8 mg PO BID PRN 05/24/21 Escitalopram Oxalate [Lexapro] 10 mg PO DAILY 05/24/21 Fluticasone/Umeclidin/Vilanter [Trelegy Ellipta 100-62.5-25] 1 each IH DAILY 05/24/21 Gabapentin 300 mg PO BID 05/24/21 Gabapentin [Neurontin*] 100 mg PO BREAKFAST 05/24/21 Glimepiride [Amaryl] 2 mg PO BID 05/24/21 Hydralazine HCl 25 mg PO BID 05/24/21 Insulin Detemir [Levemir] 20 units SQ BEDTIME 05/24/21 Insulin Glargine/Lixisenatide [Soliqua 100 Unit-33 Mcg/ml Pen] 46 units SQ BREAKFAST 05/24/21 Levothyroxine [Synthroid*] 75 mcg PO [id number] 05/24/21 Loperamide HCl [Anti-Diarrheal] 2 mg PO PRN PRN 05/24/21 Losartan Potassium [Cozaar*] 50 mg PO BID 05/24/21 Magnesium Oxide [Mag 0X*] 400 mg PO DAILY 05/24/21 Montelukast [Singulair*] 10 mg PO DAILY 05/24/21 Nebivolol HCl [Bystolic] 10 mg PO DAILY 05/24/21 Beatty-3 Fatty Acids [Beatty-3] 1,000 mg PO DAILY 05/24/21 Omeprazole 20 mg PO BID 05/24/21 Pedi Multivit No.25/Folic Acid [Flintstones Multivit Chew Tab] 1 tab PO DAILY 05/24/21 Pravastatin Sodium 80 mg PO BEDTIME 05/24/21 Tumeric/Ging/[place]/Oreg/Capryl [Candicidal Capsule] 1 each PO DAILY 05/24/21 Albuterol Neb [Proventil 0.083% Neb Soln] 2.5 mg NEB [id number] PRN #60 amp 05/27/21 Cefdinir [Omnicef] 300 mg PO BID #14 capsule 05/27/21 Furosemide [Lasix] 40 mg PO BIDL #60 tab 05/27/21 Ipratropium Neb [Atrovent*] 0.5 mg NEB [id number] PRN #60 amp 05/27/21 Potassium Chloride [K-Dur] 10 meq PO BID #60 tab.er.prt 05/27/21 predniSONE [Deltasone] 20 mg PO BID #11 tab 05/27/21 - Past Medical/Surgical History Diabetic: Yes -: Hypertension -: Hyperlipidemia -: COPD -: Diabetes mellitus type 2 -: tonsilectomy -: R leg plates/pin -: dilation and curettage Psychosocial/ Personal History: patient lives at home with her daughter - Family History Mother -: Lung disease Father -: Diabetes - Social History Smoking Status: Never smoker Alcohol use: No CD- Drugs: No Caffeine use: Yes Review of Systems Genitourinary: Dysuria, Frequency, Urgency Physical Examination - Physical Exam General: Alert, In no apparent distress, Oriented x2 HEENT: Atraumatic, Normocephalic, PERRLA Neck: Supple, 2+ carotid pulse no bruit, JVD not distended Respiratory: Clear to auscultation bilaterally, Normal air movement Cardiovascular: Normal pulses, Regular rate/rhythm, Normal S1 S2 Capillary refill: <2 Seconds Gastrointestinal: Normal bowel sounds, Soft and benign, No tenderness, Distended (obese) Musculoskeletal: No swelling Integumentary: No rashes Neurological: Normal speech, Normal tone - Studies Laboratory Data (last 24 hrs) 09/06/23 09/06/23 12:30 12:30 WBC 8.40 Hgb 13.0 Hct 40.6 Plt Count 161 Sodium 136 Potassium 3.6 BUN 52 H Creatinine 1.69 H Glucose 315 H Total Bilirubin 0.5 AST 24 ALT 41 Alkaline Phosphatase 87 Assessment and Plan - Plan Assessment and plan Acute urinary tract infection Confusion -Last urine culture has grown MRSA -Cefepime started in the ED, will continue on the floor -IV fluids given in the ED -Supportive care -Follow blood and urine culture -Physical therapy Diabetes mellitusNIDDM -A1c in the a.m. -Serum glucose 315 -Accu-Chek with sliding scale insulin -One insulin dose given in the ED History of HTN/HLD/hypercholesterolemia History of COPD -Continue home medication when available DVT PPx heparin Full code LOS 2 days Discharge Plan: Home Plan to discharge in: 48 Hours - Advance Directives Does patient have a Living Will: No Does patient have a Durable POA for Healthcare: No
[2023-09-06] MEDS ORDERED: HYDRALAZINE HCL 20 MG/ML VIAL ONE (18:05)
[2023-09-06] MEDS: HEPARIN 5000 UNIT/ML 1 ML VIAL SQ SCH (20:28)
[2023-09-06] MEDS: INSULIN REGULAR (HUMAN) 100 UNIT/ML SQ SCH (20:43)
[2023-09-06 22:35] VITALS: BMI 33.3
[2023-09-07] MEDS: HYDRALAZINE HCL 20 MG/ML VIAL IV PRN (04:36)
[2023-09-07] MEDS: BUSPIRONE HCL 5 MG TABLET PO SCH (08:46)
[2023-09-07] MEDS: HYDRALAZINE HCL 25 MG TABLET PO SCH (08:46)
[2023-09-07] MEDS: GABAPENTIN 300 MG CAP PO SCH (08:46)
[2023-09-07] MEDS: ESCITALOPRAM 20 MG TAB PO SCH (08:46)
[2023-09-07] MEDS: HOME MED 1 EA UNK (Dapagliflozin Propanediol [Farxiga] 5 MG Tablet) PO SCH (08:54)
[2023-09-07] MEDS: DOXAZOSIN MESYLATE 8 MG PO SCH (08:55)
[2023-09-07] MEDS: HOME MED 1 EA UNK (Nebivolol Hcl [Bystolic] 10 MG Tablet) PO SCH (08:56)
[2023-09-07] MEDS: LOSARTAN POTASSIUM 50 MG TABLET PO SCH (08:56)
[2023-09-07] MEDS: HOME MED 1 EA UNK (Insulin Detemir [Levemir] 100 UNIT/1 ML Ml) SQ SCH (08:57)
[2023-09-07] MEDS: ASPIRIN 81 MG CHEWABLE TABLET PO SCH (08:57)
[2023-09-07] MEDS ORDERED: HOME MED 1 EA UNK (Buspirone Hcl [Buspar] 10 MG Tablet) PO SCH (09:00)
[2023-09-07] MEDS ORDERED: HOME MED 1 EA UNK (Omeprazole [Omeprazole] 20 MG Tab.Rap.Dr) PO SCH (09:00)
[2023-09-07] MEDS ORDERED: HOME MED 1 EA UNK (Escitalopram Oxalate [Lexapro] 10 MG Tablet) PO SCH (09:00)
[2023-09-07 09:55] LABS: Absolute Basophils 0.1 K/uL (0-0.5); Absolute Eosinophils 0.1 K/uL (0-0.5); Absolute Lymphocytes (CBC) 1.4 K/uL (0.7-4.9); Absolute Monocytes 0.5 K/uL (0.1-1.3); Absolute Neutrophil 7.3 K/uL (1.8-8.0); Basophils % 0.7 % (0-1.3); Eosinophils % 0.6 % (0-4.4); Hemoglobin 13.2 g/dL (12.0-15.0); Lymphocytes % 15.3 % (15.3-44.8); MCH 30.9 pg (27.0-35.0); MCHC 32.3 g/dL (32.0-36.0); MCV 95.8 fL (80-100); MPV 11.2 fL (7.6-11.3); Neutrophils % 78.4 % (41.7-73.7); Nucleated Red Blood Cells % 0.2 % (0-0); Platelets 163 thou/uL (152-406); RBC Red Blood Cell Count 4.29 M/uL (3.86-4.86); Red Cell Distribution Width 14.8 % (12.1-15.2)
[2023-09-07 10:00] LABS: Anion Gap 9.8 mEq/L (5.0-15.0); Magnesium 1.6 mg/dL (1.6-2.4); Phosphorus 2.7 mg/dL (2.5-4.9); Potassium 3.8 mEq/L (3.5-5.1)
[2023-09-07] MEDS: ACETAMINOPHEN 500 MG TAB PO PRN (12:46)
[2023-09-07] MEDS: CEFEPIME 1 GM in NA CHLORIDE 0.9% 100 ML IV SCH (17:49)
[2023-09-07] MEDS: POTASSIUM 25 MEQ EFFERV TAB PO ONE (17:49)
[2023-09-07] MEDS: MAGNESIUM SULFATE 1 gm IVPB 1 GM/100 ML BAG IV ONE (17:49)
--- NOTE | 2023-09-07 18:27 | RAD REPORT ---
EXAM DESCRIPTION: US - Renal Ultrasound-Complete - 09/07/2023 6:17 pm CLINICAL HISTORY: r/o pyelonephritis COMPARISON: Chest Abd Pelvis Wo Con dated 12/16/2021 FINDINGS: Both kidneys are normal in size, shape and echotexture. The right kidney measures 9.4 cm. No hydronephrosis, focal mass or perinephric fluid. Lobular contour . The left kidney measures 8.9 cm. Small cortical cyst measuring 1.3 cm along the lower pole the left k idney. No hydronephrosis. Lobular contour. Nonvisualized bladder. IMPRESSION: No evidence of hydronephrosis. Small left renal cortical cyst.
--- NOTE | 2023-09-07 19:04 | P.PN ---
Date of Service: 09/07/23 Subjective Sleeping comfortably Awakens easily No new complaint Alert and oriented ROS 10 point ROS as noted above, otherwise negative Physical Exam General: Alert and Oriented x2, NAD HEENT: Atraumatic, Normocephalic, PERRLA Neck: Supple, 2+ carotid pulse no bruit, JVD not distended Respiratory: Clear to auscultation bilaterally, Normal air movement Cardiovascular: Normal pulses, RRR, Normal S1 S2 present Capillary refill: <2 Seconds Gastrointestinal: Normal bowel sounds, Soft and benign on palpation, No tenderness, Distended (obese) Musculoskeletal: No swelling Integumentary: No rashes Neurological: Normal speech, Normal tone Vitals Reviewed Problem list Acute urinary tract infection Confusion Diabetes mellitusNIDDM History of HTN/HLD/hypercholesterolemia History of COPD Assessment and Plan Acute urinary tract infection Confusion -Last urine culture has grown MRSA -Continue cefepime -IV fluids given in the ED -Supportive care -blood cultures-and GTD -urine culture-1+ gram-negative rods -Physical therapy RAYNE -BUN/creatinine 32/1.2, GFR 47 -Monitor in a.m. labs Diabetes mellitusNIDDM -A1c 10.7 -Serum glucose 315 -Accu-Chek with sliding scale insulin - continue home medication History of HTN/HLD/hypercholesterolemia History of COPD -Continue home medication when available DVT PPx heparin Full code LOS 2 days Discharge Plan: Home Plan to discharge in: 48 Hours
[2023-09-07] MEDS: LIXISENATIDE SQ SCH (20:37)
[2023-09-07] MEDS: INSULIN GLARGINE SQ SCH (20:37)
[2023-09-07] MEDS: allopurinoL 300 MG TAB PO SCH (20:39)
[2023-09-07] MEDS: ATORVASTATIN 10 MG TAB PO SCH (20:39)
[2023-09-07] MEDS: INSULIN GLARGINE 100 UNIT/ML SQ SCH (20:39)
[2023-09-07] MEDS ORDERED: HOME MED 1 EA UNK (Pravastatin Sodium [Pravastatin Sodium] 80 MG Tablet) PO SCH (21:00)
[2023-09-08] MEDS: PANTOPRAZOLE 40MG TABLET PO SCH (05:30)
[2023-09-08] MEDS: LEVOTHYROXINE SOD 0.075 MG TAB PO SCH (05:30)
[2023-09-08 07:28] LABS: Anion Gap 6.8 mEq/L (5.0-15.0); Magnesium 2.2 mg/dL (1.6-2.4); Potassium 3.8 mEq/L (3.5-5.1)
[2023-09-08] MEDS: DOXAZOSIN 4 MG TAB PO SCH (09:43)
[2023-09-08] MEDS: GABAPENTIN 100 MG CAP PO SCH (09:44)
[2023-09-08] MEDS: NEBIVOLOL HCL 5 MG TAB PO SCH (09:46)
[2023-09-08] MEDS: GABAPENTIN 300 MG CAP PO SCH (13:34)
--- NOTE | 2023-09-08 19:29 | P.PN ---
Date of Service: 09/08/23 Subjective Awake and less confused this AM c/o diarrhea eating well and drinking multiple cups of coffee ROS 10 point ROS as noted above, otherwise negative Physical Exam General: Alert and Oriented x3, NAD, conversing well HEENT: Atraumatic, Normocephalic, PERRLA Neck: Supple, 2+ carotid pulse no bruit, JVD not distended Respiratory: Clear to auscultation bilaterally, Normal air movement Cardiovascular: Regular rate and rhythm, Normal S1 S2 present Capillary refill: <2 Seconds Gastrointestinal: Normal active bowel sounds, Soft and benign on palpation, No tenderness, Distended (obese) Musculoskeletal: No swelling, 2+ peripheral pulses Integumentary: No rashes Neurological: Normal speech, Normal tone Vitals Reviewed Problem list Acute urinary tract infection Confusion Diarrhea Diabetes mellitusNIDDM History of HTN/HLD/hypercholesterolemia History of COPD Assessment and Plan Acute urinary tract infection Confusion Diarrhea -Last urine culture has grown MRSA -Continue cefepime -Lactinex -IV fluids given in the ED -Supportive care -blood cultures-NGTD -urine culture-1+ gram-negative rods, awaiting C/S -Physical therapy RAYNE -BUN/creatinine 27/1.12, GFR 51 -Monitor in a.m. labs Diabetes mellitusNIDDM -A1c 10.7 -Serum glucose 161 -Accu-Chek with sliding scale insulin - continue home medication History of HTN/HLD/hypercholesterolemia History of COPD -Continue home medication when available DVT PPx heparin Full code LOS 2 days Discharge Plan: Home Plan to discharge in: 48 Hours
[2023-09-09 06:53] LABS: Absolute Basophils 0.1 K/uL (0-0.5); Absolute Eosinophils 0.1 K/uL (0-0.5); Absolute Lymphocytes (CBC) 1.6 K/uL (0.7-4.9); Absolute Monocytes 0.8 K/uL (0.1-1.3); Absolute Neutrophil 11.9 K/uL (1.8-8.0); Basophils % 0.7 % (0-1.3); Eosinophils % 0.5 % (0-4.4); Hematocrit 37.8 % (36.0-45.0); Hemoglobin 12.3 g/dL (12.0-15.0); Lymphocytes % 10.9 % (15.3-44.8); MCH 31.1 pg (27.0-35.0); MCHC 32.5 g/dL (32.0-36.0); MCV 95.7 fL (80-100); MPV 10.4 fL (7.6-11.3); Monocytes % 5.6 % (3.3-12.3); Neutrophils % 82.3 % (41.7-73.7); Nucleated Red Blood Cells % 0.1 % (0-0); Platelets 138 thou/uL (152-406); RBC Red Blood Cell Count 3.95 M/uL (3.86-4.86); Red Cell Distribution Width 14.8 % (12.1-15.2)
[2023-09-09 07:08] LABS: Anion Gap 6.6 mEq/L (5.0-15.0); Magnesium 1.7 mg/dL (1.6-2.4); Phosphorus 2.9 mg/dL (2.5-4.9); Potassium 3.6 mEq/L (3.5-5.1)
[2023-09-09] MEDS: POTASSIUM CL SA 10 MEQ TAB PO ONE (08:55)
[2023-09-09] MEDS: MAGNESIUM SULFATE 1 gm IVPB 1 GM/100 ML BAG IV ONE (08:57)
[2023-09-09] MEDS: LACTOBACILLUS/ACIDOPHILUS TAB PO SCH (08:57)
--- NOTE | 2023-09-09 12:35 | P.PN ---
Date of Service: 09/09/23 Subjective Feeling well, no c/o of diarrhea WBC increased, urine growing enterobacter Cloacea sensitive to cefepime Afebrile Monitor white blood cells in the a.m. ROS 10 point ROS as noted above, otherwise negative Physical Exam General: AAO x3, NAD, conversing well HEENT: Atraumatic, Normocephalic, PERRLA Neck: Supple, 2+ carotid pulse no bruit, JVD not distended Respiratory: Clear to auscultation bilaterally, Normal air movement Cardiovascular: NSR, Normal S1 S2 present Capillary refill: <2 Seconds Gastrointestinal: Normal active bowel sounds, Soft and benign on palpation, No tenderness, Distended (obese) Musculoskeletal: No swelling, 2+ peripheral pulses Integumentary: No rashes Neurological: Normal speech, Normal tone Vitals Reviewed Problem list Acute urinary tract infection Confusion Diarrhea Diabetes mellitusNIDDM History of HTN/HLD/hypercholesterolemia History of COPD Assessment and Plan Acute urinary tract infection Confusion Diarrhea Leukocytosis -WBC 14, monitor in a.m. labs -Last urine culture has grown MRSA -Continue cefepime -Lactinex -IV fluids given in the ED -Supportive care -blood cultures-NGTD -urine culture-Enterobacter cloacae sensitive to Merrem, Cipro, and levaquin -Physical therapy RAYNE -BUN/creatinine 27/1.36, GFR 40 -Monitor in a.m. labs Diabetes mellitusNIDDM -A1c 10.7 -Serum glucose 171-improved -Accu-Chek with sliding scale insulin - continue home medication History of HTN/HLD/hypercholesterolemia History of COPD -Continue home medication when available DVT PPx heparin Full code LOS 2 days Discharge Plan: Home Plan to discharge in: 48 Hours
[2023-09-10 01:19] VITALS: O2SAT 94
[2023-09-10 04:51] VITALS: TEMP 97.3
[2023-09-10 06:56] LABS: Absolute Eosinophils 0.1 K/uL (0-0.5); Absolute Lymphocytes (CBC) 1.6 K/uL (0.7-4.9); Absolute Monocytes 0.7 K/uL (0.1-1.3); Absolute Neutrophil 8.9 K/uL (1.8-8.0); Basophils % 0.4 % (0-1.3); Eosinophils % 0.7 % (0-4.4); Hematocrit 42.1 % (36.0-45.0); Hemoglobin 13.4 g/dL (12.0-15.0); Lymphocytes % 13.8 % (15.3-44.8); MCH 30.7 pg (27.0-35.0); MCHC 31.9 g/dL (32.0-36.0); MCV 96.4 fL (80-100); MPV 11.1 fL (7.6-11.3); Monocytes % 6.2 % (3.3-12.3); Neutrophils % 78.9 % (41.7-73.7); Platelets 124 thou/uL (152-406); RBC Red Blood Cell Count 4.37 M/uL (3.86-4.86); Red Cell Distribution Width 14.9 % (12.1-15.2)
[2023-09-10 07:13] LABS: Anion Gap 7.8 mEq/L (5.0-15.0); Magnesium 2.1 mg/dL (1.6-2.4); Phosphorus 3.7 mg/dL (2.5-4.9); Potassium 3.8 mEq/L (3.5-5.1)
[2023-09-10 07:37] VITALS: BP 109/53
[2023-09-10] MEDS ORDERED: POTASSIUM CL SA 10 MEQ TAB PO ONE (07:48)
--- NOTE | 2023-09-10 09:17 | P.DS ---
Admission Date: 09/06/23 Discharge Date: 09/10/23 Disposition: ROUTINE DISCHARGE Discharge Condition: GOOD Reason for Admission: UTI Brief History of Present Illness: Diagnosis Acute urinary tract infection Confusion Diarrhea Leukocytosis RAYNE Diabetes mellitusNIDDM History of HTN/HLD/hypercholesterolemia History of COPD HPI 09/06/23 Kaitlynn Moralez is a 78-year-old female with past medical history of COPD, diabetes mellitusNIDDM, HLD, hypercholesterolemia, hypertension who presents to the ED with chief complaint of altered mental status. She has a history of UTIs and this is her normal state of mind when she is experiencing a UTI. Laboratory evaluation with lactic acid 2.1 now cleared at 1.7, BUN/creatinine 52/1.69, GFR 31, serum glucose 315, UA positive for leukocyte esterase 500 and budding yeast moderate. Initial vitals BP 185 / 82; Pulse 78; Resp 16 S; Temp 98.7(O); Pulse Ox 94% on R/A Head CT without contrast reports "No acute intracranial abnormality" Chest x-ray report "Mild CHF pattern suspected" Kaitlynn be admitted to hospitalist service for further treatment of urinary tract infection with IV antibiotics. Hospital Course: Kaitlynn Snider is a pleasant 78 year old female with a past medical history significant for COPD, diabetes mellitusNIDDM, HLD, hypercholesterolemia, hypertension who was admitted to the [facility] on 09/06/23 for Altered mental status at home. Kaitlynn Snider was treated for a urinary tract infection. Urine culture showed Enterobacter Cloace. She has tolerated IV antibiotics, responded well to jose tment, alert and oriented, able to feed herself, ambulating with therapy 45 feet. She was ready to discharge home to her daughters house, where she lives. She states she can walk with her rollator. She was able to ambulate with PT 45 ft. On 09/10/2023, Kaitlynn was seen on morning rounds and deemed medically stable for discharge. Kaitlynn was discharged with instructions to schedule follow-up appointments with PCP. Kaitlynn was provided prescriptions for Levaquin. Physical Exam General: Awake, alert, and oriented x3, NAD, conversing well HEENT: Atraumatic, Normocephalic, PERRLA Neck: Supple, 2+ carotid pulse no bruit, JVD not distended Respiratory: Clear to auscultation bilaterally, Normal air movement, on room air Cardiovascular: Regular rate and rhythm, Normal S1 S2 present Capillary refill: <2 Seconds Gastrointestinal: Normal active bowel sounds, Soft and benign on palpation, No tenderness, Distended (obese) Musculoskeletal: No swelling, 2+ peripheral pulses Integumentary: No rashes Neurological: Normal speech, Normal tone Vital Signs/Physical Exam: Temp Pulse Resp BP Pulse Ox 97.3 F 71 16 109/53 L 93 09/10/23 04:00 09/10/23 07:34 09/10/23 04:00 09/10/23 07:34 09/10/23 04:00 Laboratory Data at Discharge: WBC 11.30 thou/uL (4.3-10.9) H 09/10/23 06:32 Hgb 13.4 g/dL (12.0-15.0) D 09/10/23 06:32 Hct 42.1 % (36.0-45.0) 09/10/23 06:32 Plt Count 124 thou/uL (152-406) L 09/10/23 06:32 Sodium 140 mEq/L (136-145) D 09/10/23 06:32 Potassium 3.8 mEq/L (3.5-5.1) 09/10/23 06:32 BUN 25 mg/dL (7-18) H 09/10/23 06:32 Creatinine 1.29 mg/dL (0.55-1.02) H 09/10/23 06:32 Glucose 85 mg/dL (74-106) 09/10/23 06:32 Phosphorus 3.7 mg/dL (2.5-4.9) 09/10/23 06:32 Magnesium 2.1 mg/dL (1.6-2.4) 09/10/23 06:32 Total Bilirubin 0.5 mg/dL (0.2-1.0) 09/06/23 12:30 AST 24 U/L (15-37) 09/06/23 12:30 ALT 41 U/L (13-56) 09/06/23 12:30 Alkaline Phosphatase 87 U/L (45-117) 09/06/23 12:30 Home Medications: Allopurinol 300 mg PO BEDTIME 05/24/21 Aspirin 81 mg PO DAILY 05/24/21 Buspirone HCl [Buspar] 10 mg PO TID 05/24/21 Dapagliflozin Propanediol [Farxiga] 10 mg PO DAILY 05/24/21 Doxazosin Mesylate 8 mg PO BID 05/24/21 Escitalopram Oxalate [Lexapro] 10 mg PO DAILY 05/24/21 Fluticasone/Umeclidin/Vilanter [Trelegy Ellipta 100-62.5-25] 1 each IH DAILY 05/24/21 Gabapentin 300 mg PO BID 05/24/21 Gabapentin [Neurontin*] 100 mg PO BREAKFAST 05/24/21 Hydralazine HCl 25 mg PO BID 05/24/21 Insulin Detemir [Levemir] 47 units SQ BID 05/24/21 Insulin Glargine/Lixisenatide [Soliqua 100 Unit-33 Mcg/ml Pen] 10 units SQ BEDTIME 05/24/21 Levothyroxine [Synthroid*] 75 mcg PO [id number] 05/24/21 Losartan Potassium [Cozaar*] 50 mg PO BID 05/24/21 Montelukast [Singulair*] 10 mg PO DAILY 05/24/21 Nebivolol HCl [Bystolic] 10 mg PO DAILY 05/24/21 [place]-3 Fatty Acids [[place]-3] 1,000 mg PO DAILY 05/24/21 Omeprazole 20 mg PO BID 05/24/21 Pravastatin Sodium 80 mg PO BEDTIME 05/24/21 Cholestyramine [Cholestyramine Resin] 5 gm MC DAILY 09/07/23 Fluticasone/Umeclidin/Vilanter [Trelegy Ellipta 100-62.5-25] 1 puff IH DAILY 09/07/23 Tirzepatide [Mounjaro] 5 mg SQ EVERY 7TH DAY 09/07/23 Levofloxacin [Levaquin] 250 mg PO DAILY 5 Days #5 tab 09/10/23 New Medications: Levofloxacin [Levaquin] 250 mg PO DAILY 5 Days #5 tab Physician Discharge Instructions: Kaitlynn Snider was treated for a urinary tract infection. Please continue antibiotic therapy with levaquin that was called into the pharmacy. 1. Please call and schedule a follow-up appointment with your PCP in 3-5 days - Please follow-up with your PCP for medication refills/adjustments 2. Please call and schedule a follow-up appointment with [text] in 3-5 days 3. Continue ADA diet 4. activity restrictions, fall precautions 5. Return to the ED if symptoms worsen New medications Levaquin 250 mg PO daily x 5 days PROBLEM: GOAL: Clear understanding of disease process INSTRUCTIONS: Diet: As tolerated Activity: As tolerated COMMUNITY SERVICES Services Needed: NA Name of Company: Date or Referral: :[facility]- Wheelchair ordered on 09/07/23, pending approval and insurance authorization. Located in: [facility] Address: [address] [place] [address], [place] [address] Diet: ADA Activity: Fall precautions Followup: Cristina Pierce [Primary Care Provider] -
--- NOTE | 2023-09-10 10:35 | EKG ---
Test Date: 2023-09-06 Test Time: 18:25:27 Impress Associate: MEASUREMENT RESULTS: Intervals: Rate: 81 GA: 258 QRSD: 98 QT: 424 QTc: 492 [place]: P: 75 GA: 258 QRS: 230 T: 40 INTERPRETIVE STATEMENTS: Sinus rhythm with 1st degree AV block with occasional premature ventricular complexes Low voltage QRS Anterolateral infarct, age undetermined Abnormal ECG Compared to ECG 12/15/2021 20:35:02 Ventricular premature complex(es) now present First degree AV block now present Low QRS voltage now present Left-axis deviation no longer present Myocardial infarct finding still present Electronically Signed On 09-10-23 10:32:26 CDT by Brian Petty
== END 2023-09-10 11:19 | disposition home or self-care (01) | DRG 690 ==
LOC: ER 11:57 → ERHOLD 16:58 → 4TH 19:29
PROVIDERS: ADMIT Hospitalist; ATTEND Hospitalist
DX: N39.0 Urinary tract infection, site not specified (principal); F05 Delirium due to known physiological condition; N17.9 Acute kidney failure, unspecified; E87.20 Acidosis, unspecified; E11.9 Type 2 diabetes mellitus without complications; I10 Essential (primary) hypertension; E78.00 Pure hypercholesterolemia, unspecified; J44.9 Chronic obstructive pulmonary disease, unspecified; B96.89 Other specified bacterial agents as the cause of diseases classified elsewhere; Z79.4 Long term (current) use of insulin; Z79.82 Long term (current) use of aspirin; Z79.52 Long term (current) use of systemic steroids; Z79.84 Long term (current) use of oral hypoglycemic drugs; Z79.890 Hormone replacement therapy; Z79.899 Other long term (current) drug therapy; Z91.048 Other nonmedicinal substance allergy status
CPT/HCPCS: 36415; 70450; 71045; 76770; 80048; 80053; 81001; 82947; 83036; 83605; 83735; 84100; 84484; 85025; 87040; 87077; 87086; 87088; 87186; 93005; 96365; 96366; 96368; 96375; 97110; 97116; 97161; 97530; 99285; J0360; J0692; J1644; J3475; J7030

== ENCOUNTER 2023-09-14 22:47 | Inpatient (IN) | payer OTHER ==
--- NOTE | 2023-09-15 01:29 | EDPHYS ---
Physician Documentation [facility] Name: Kaitlynn Snider Age: 78 yrs Sex: Female : 1945 Arrival Date: 09/14/2023 Time: 22:47 Bed 2 Private MD: ED Physician Napoleon Garrido HPI: 09/13 23:01 This 78 yrs old Female presents to ER via Unassigned with complaints of Gen sp4 complaint . 09/14 14:35 78-year-old female with past medical history of COPD, diabetes, hyperlipidemia, ms3 hypertension presents to the emergency department status post fall via clued EMS status post fall.. Historical: - Allergies: : Tape; pc2 - PMHx: :27 COPD; Diabetes - NIDDM; Hyperlipidemia; High Cholesterol; Hypertension; pc2 - Immunization history:: Adult Immunizations unknown. - Infectious Disease History:: Denies. - Social history:: Smoking status: unknown. ROS: 14:35 Cardiovascular: Negative for chest pain, and palpitations. Respiratory: Negative for ms3 shortness of breath, cough, wheezing, and pleuritic chest pain, Abdomen/GI: Negative for abdominal pain, nausea, vomiting, diarrhea, and constipation, 14:35 Constitutional: Positive for Generalized weakness, Exam: 14:35 Constitutional: This is a well developed, well nourished patient who is awake, alert, ms3 and in no acute distress. Head/Face: Normocephalic, atraumatic. Chest/axilla: Normal chest wall appearance and motion. Nontender with no deformity. Cardiovascular: Regular rate and rhythm with a normal S1 and S2. No gallops, murmurs, or rubs. Normal PMI, no JVD. No pulse deficits. Respiratory: Lungs have equal breath sounds bilaterally, clear to auscultation and percussion. No rales, rhonchi or wheezes noted. No increased work of breathing, no retractions or nasal flaring. Abdomen/GI: Soft, non-tender, with normal bowel sounds. No distension or tympany. No guarding or rebound. No evidence of tenderness throughout. Skin: Warm, dry with normal turgor. Normal color with no rashes, no lesions, and no evidence of cellulitis. 14:35 Musculoskeletal/extremity: Left foot toe deformities. Vital Signs: 09/13 22:48 BP 186 / 83; Pulse 82; Resp 18; Temp 99.4(O); Pulse Ox 100% on 5 lpm NC; Weight 83.01 rv1 kg; Height 4 ft. 11 in. ; Pain 10/13; 09/14 00:15 BP 188 / 93; Pulse 80; Resp 18; Pulse Ox 100% on 5 lpm NC; pc2 03:00 BP 205 / 94; Pulse 70; Resp 16; Pulse Ox 100% on 5 lpm NC; pc2 04:31 BP 180 / 132; Pulse 78; Resp 16; Pulse Ox 100% ; pc2 06:00 BP 168 / 98; Pulse 66; Resp 20; Pulse Ox 100% ; pc2 07:00 BP 207 / 91; Pulse 59; Resp 16; Pulse Ox 100% on R/A; pc2 10:00 BP 175 / 111; Pulse 65; Resp 15; Pulse Ox 100% on 5 lpm NC; bp 13:18 BP 188 / 91; Pulse 61; Resp 17; Pulse Ox 97% on 3 lpm NC; rs5 15:17 BP 198 / 99; Pulse 58; Resp 16; Pulse Ox 97% on 3 lpm NC; rs5 17:34 BP 181 / 88; Pulse 66; Resp 17; Pulse Ox 99% on 3 lpm NC; rs5 09/13 22:48 Body Mass Index 36.96 (83.01 kg, 149.86 cm) rv1 09/13 22:48 Pain Scale: Adult rv1 MDM: 09/13 23:01 Patient medically screened. sp4 09/14 01:24 ED course: EXAM DESCRIPTION: Knee Right 3 View (accession [id number]), Knee Left 3 sp4 View (accession [id number]) CLINICAL HISTORY: 78 years Female, Right knee pain COMPARISON: None. IMPRESSION: No fracture or dislocation. Prior plate and screw fixation of the right femur. Bilateral tricompartmental degenerative changes, right worse than left. Diffuse soft tissue swelling. No joint effusion bilaterally. Vascular calcifications. . ED course: EXAM DESCRIPTION: Knee Right 3 View (accession [id number]), Knee Left 3 View (accession [id number]) CLINICAL HISTORY: 78 years Female, Right knee pain COMPARISON: None. IMPRESSION: No fracture or dislocation. Prior plate and screw fixation of the right femur. Bilateral tricompartmental degenerative changes, right worse than left. Diffuse soft tissue swelling. No joint effusion bilaterally. Vascular calcifications. Electronically signed by: . 14:38 Differential Diagnosis knee fracture vs fall vs generalized weakness. Data reviewed: ms3 vital signs, nurses notes, radiologic studies, and as a result, I will discharge patient. Management of patient was discussed with the following: Hospitalist: Dr Paz. I considered the following discharge prescriptions or medication management in the emergency department Medications were administered in the Emergency Department. See MAR. Independent interpretation of the following test(s) in the Emergency Department X-Ray: My interpretation is Left knee x-ray reviewed does not reveal fracture. Counseling: I had a detailed discussion with the patient and/or guardian regarding the historical points, exam findings, and any diagnostic results supporting the discharge/admit diagnosis, radiology results, the need for further work-up and treatment in the hospital. ED course: Case discussed with case management. Patient will need observation for placement as patient has generalized weakness and is having frequent falls. Patient is not currently safe to be discharged home.. 09/14 14:43 Order name: CBC w/o diff; Complete Time: 15:32 ms3 09/14 14:43 Order name: BMP; Complete Time: 15:45 ms3 09/13 23:10 Order name: Knee Right 3 View XRAY sp4 09/13 23:35 Order name: Knee Left 3 View XRAY sp4 09/14 12:52 Order name: Social Service Consult [facility] 09/14 14:53 Order name: Physical Therapy Consult [facility] 09/14 14:54 Order name: Social Service Consult [facility] Administered Medications: 04:31 Drug: cloNIDine PO 0.3 mg PO once Route: PO; pc2 05:00 Follow up: Response: No adverse reaction pc2 15:18 Follow up: Response: No adverse reaction bp Disposition Summary: 09/15/23 14:42 Hospitalization Ordered Notes: Hospitalization Status: Observation ms3 Provider: Boaz Paz msNaun Location: Telemetry/MedSurg (observation)(09/15/23 14:42) ms3 Condition: Stable(09/15/23 14:42) ms3 Problem: new(09/15/23 14:42) ms3 Symptoms: are unchanged(09/15/23 14:42) ms3 Bed/Room Type: Standard ri3 Room Assignment: [facility](09/15/23 17:53) jr12 Diagnosis - Muscle weakness (generalized) ms3 - Fall on same level, unspecified ms3 - Essential (primary) hypertension ms3 - Contusion of left knee(09/15/23 14:42) ms3 - Contusion of right knee(09/15/23 14:42) ms3 Forms: - Medication Reconciliation Form ms3 - SBAR form ms3 - Leadership Thank You Letter ms3 Signatures: Dispatcher [employer] EDMS Napoleon Garrido, DO DO ms3 Milo Zapata MD MD sp4 Marybeth Chairez jr12 Cristina Trevizo, RN RN pc2 Fuentes Denny RN bp Corrections: (The following items were deleted from the chart) 09/13 23:36 23:36 Knee Left 3 View+RAD.RAD.BRZ ordered. EDVA EDMS 09/14 14:35 01:28 Home sp4 ms3 14:35 01:28 new sp4 ms3 14:35 01:28 are unchanged sp4 ms3 14:35 01:28 Stable sp4 ms3 14:35 01:28 Contusion of right knee sp4 ms3 14:35 01:28 Contusion of left knee sp4 ms3 17:53 14:42 ms3 jr12
--- NOTE | 2023-09-15 01:29 | ER ---
Nurse's Notes [facility] Name: Kaitlynn Snider Age: 78 yrs Sex: Female : 1945 Arrival Date: 09/14/2023 Time: 22:47 Bed 2 Private MD: Diagnosis: Muscle weakness (generalized);Fall on same level, unspecified;Essential (primary) hypertension;Contusion of left knee;Contusion of right knee Presentation: 09/13 22:50 Chief complaint: EMS states: tripped and fell hitting both knees, complains more pain vc1 to right knee. 22:50 Coronavirus screen: Client denies travel out of the [place] in the last 14 days. At this vc1 time, the client does not indicate any symptoms associated with coronavirus-19. Ebola Screen: Patient negative for fever greater than or equal to 101.5 degrees Fahrenheit, and additional compatible Ebola Virus Disease symptoms Patient denies exposure to infectious person. Patient denies travel to an Ebola-affected area in the 21 days before illness onset. No symptoms or risks identified at this time. Initial Sepsis Screen: Does the patient meet any 2 criteria? No. Patient's initial sepsis screen is negative. Does the patient have a suspected source of infection? No. Patient's initial sepsis screen is negative. Risk Assessment: Do you want to hurt yourself or someone else?. Onset of symptoms was September 14, 2023. 22:50 Method Of Arrival: EMS: [facility] vc1 22:50 Acuity: RHINA 3 vc1 Triage Assessment: 22:50 General: Appears in no apparent distress. uncomfortable, obese, Behavior is flat, vc1 quiet. Pain: Complains of pain in right knee. Neuro: Level of Consciousness is awake, Oriented to person, place. Respiratory: Airway is patent Respiratory effort is even, unlabored, Respiratory pattern is regular, symmetrical, Breath sounds are clear bilaterally. GI: Abdomen is round non-distended. Derm: Skin is intact, is healthy with good turgor, Skin is dry, Skin is normal, Skin temperature is warm. Historical: - Allergies: 09/14 01:27 Tape; pc2 - PMHx: 01:27 COPD; Diabetes - NIDDM; Hyperlipidemia; High Cholesterol; Hypertension; pc2 - Immunization history:: Adult Immunizations unknown. - Infectious Disease History:: Denies. - Social history:: Smoking status: unknown. Screenin/11 23:14 [facility] ED Fall Risk Assessment (Adult) History of falling in the last 3 months, pc2 including since admission Yes- single mechanical fall (1 pt) Confusion or Disorientation No (0 pts) Intoxicated or Sedated No (0 pts) Impaired Gait No (0 pts) Mobility Assist Device Used No (0 pt) Altered Elimination Yes (1 pt) Score/Fall Risk Level 3 or more points = High Risk Oriented to surroundings, Hourly rounding (assess needs \\T\\ fall precautionary measures) done. Abuse screen: Denies threats or abuse. Denies injuries from another. Nutritional screening: No deficits noted. Tuberculosis screening: No symptoms or risk factors identified. Assessment: 23:10 General: Appears in no apparent distress. uncomfortable, Behavior is calm, cooperative. pc2 Pain: Complains of pain in right knee and left leg Pain began gradually, 1 hour ago. Neuro: Level of Consciousness is awake, alert, Oriented to person, place, time, situation. Cardiovascular: Patient's skin is warm and dry. Respiratory: Airway is patent Respiratory effort is even, unlabored, Respiratory pattern is regular, symmetrical, O2 \\T\\5lpm (uses home O2). GI: No signs and/or symptoms were reported involving the gastrointestinal system. Abdomen is round non-distended. : No signs and/or symptoms were reported regarding the genitourinary system. EENT: No signs and/or symptoms were reported regarding the EENT system. Derm: Skin is intact, Skin is dry, Skin is pink, warm \\T\\ dry. redness to left ankle. denies pain to area. Musculoskeletal: pain to right knee Reports fall this evening. 09/14 00:30 Reassessment: Patient appears in no apparent distress at this time. Patient and/or pc2 family updated on plan of care and expected duration. Pain level reassessed. 01:40 General: Attempt made to contact pt daughter Priti Coffey. Unable to make contact. pc2 and charge nurse made aware.. 03:02 Reassessment: No changes from previously documented assessment. Patient and/or family pc2 updated on plan of care and expected duration. Pain level reassessed. Patient is alert, oriented x 3, equal unlabored respirations, skin warm/dry/pink. 05:51 Reassessment: Patient appears in no apparent distress at this time. Resting quietly in pc2 bed with eyes closed, resp even and unlabored. 06:55 Reassessment: Patient appears in no apparent distress at this time. Patient and/or pc2 family updated on plan of care and expected duration. Pain level reassessed. 08:54 Reassessment: Priit Coffey contacted over the phone, states "I will be coming up there rs5 but I would like to talk to a social secretary because she cannot come home with me" MD and charge nurse notified. 10:01 Reassessment: Patient and/or family updated on plan of care and expected duration. Pain rs5 level reassessed. Patient is alert, oriented x 3, equal unlabored respirations, skin warm/dry/pink. 10:25 Reassessment: SOCIAL WORK CONTACTED BY VICE PRESIDENT FOR INSTRUCTION, STILL AWAITING FAMILY. bp 11:09 Reassessment: Patient and/or family updated on plan of care and expected duration. Pain rs5 level reassessed. Patient is alert, oriented x 3, equal unlabored respirations, skin warm/dry/pink. family at bedside, wishes to speak to social media executive, charge nurse notified. 12:20 Reassessment: No changes from previously documented assessment. rs5 13:35 Reassessment: Patient and/or family updated on plan of care and expected duration. Pain rs5 level reassessed. Patient is alert, oriented x 3, equal unlabored respirations, skin warm/dry/pink. 14:49 Reassessment: No changes from previously documented assessment. rs5 Vital Signs: 09/13 22:48 BP 186 / 83; Pulse 82; Resp 18; Temp 99.4(O); Pulse Ox 100% on 5 lpm NC; Weight 83.01 rv1 kg; Height 4 ft. 11 in. ; Pain 8/10; 09/14 00:15 BP 188 / 93; Pulse 80; Resp 18; Pulse Ox 100% on 5 lpm NC; pc2 03:00 BP 205 / 94; Pulse 70; Resp 16; Pulse Ox 100% on 5 lpm NC; pc2 04:31 BP 180 / 132; Pulse 78; Resp 16; Pulse Ox 100% ; pc2 06:00 BP 168 / 98; Pulse 66; Resp 20; Pulse Ox 100% ; pc2 07:00 BP 207 / 91; Pulse 59; Resp 16; Pulse Ox 100% on R/A; pc2 10:00 BP 175 / 111; Pulse 65; Resp 15; Pulse Ox 100% on 5 lpm NC; bp 13:18 BP 188 / 91; Pulse 61; Resp 17; Pulse Ox 97% on 3 lpm NC; rs5 15:17 BP 198 / 99; Pulse 58; Resp 16; Pulse Ox 97% on 3 lpm NC; rs5 17:34 BP 181 / 88; Pulse 66; Resp 17; Pulse Ox 99% on 3 lpm NC; rs5 09/13 22:48 Body Mass Index 36.96 (83.01 kg, 149.86 cm) rv1 09/13 22:48 Pain Scale: Adult rv1 ED Course: 09/13 22:48 Patient arrived in ED. rv1 23:00 Milo Zapata MD is Attending Physician. sp4 23:15 Patient has correct armband on for positive identification. Provided Education on: POC pc2 and time frame. 23:15 Arm band placed on left wrist. pc2 23:16 No provider procedures requiring assistance completed. pc2 23:41 X-ray(s) taken. pc2 07 00:12 Knee Right 3 View XRAY In Process Unspecified. EDMS 00:12 Knee Left 3 View XRAY In Process Unspecified. EDMS 01:33 Triage completed. vc1 01:38 Patient did not have IV access during this emergency room visit. pc2 07:31 Fuentes Denny, RN is Primary Nurse. bp 14:34 Attending Physician role handed off by Milo Zapata MD ms3 14:34 Napoleon Garrido DO is Attending Physician. ms3 14:41 Boaz Paz is Hospitalizing Provider. ms3 15:17 Initial lab(s) drawn, by ks, sent to lab. Inserted saline lock: 22 gauge in right bp antecubital area, using aseptic technique. Blood collected. 15:20 Patient admitted, IV remains in place. rs5 Administered Medications: 04:31 Drug: cloNIDine PO 0.3 mg PO once Route: PO; pc2 05:00 Follow up: Response: No adverse reaction pc2 15:18 Follow up: Response: No adverse reaction bp Medication: 09/13 23:15 VIS not applicable for this client. pc2 Outcome: 09/14 14:42 Decision to Hospitalize by Provider. ms3 14:43 Admitted to ER Hold. Please see [facility] for further documentation. rs5 14:43 Condition: stable 14:43 Instructed on the need for admit, Demonstrated understanding of instructions, 18:56 Patient left the ED. bp Signatures: Dispatcher [employer] EDMS Fuentes Denny, RN RN bp Garrido, Napoleon, DO ms3 Mirian Rincon, RN RN vc1 Precious Potter rv1 Frank Bermeo, RN RN rs5 Milo Zapata MD MD sp4 Cristina Trevizo, RN RN pc2 Corrections: (The following items were deleted from the chart) 13:18 11:09 Reassessment: Patient and/or family updated on plan of care and expected rs5 duration. Pain level reassessed. Patient is alert, oriented x 3, equal unlabored respirations, skin warm/dry/pink. family at bedside, wishes to speak to social media executive, charge nurse notified. rs5 17:34 01:28 Discharge ordered by . sp4 rs5 17:34 01:38 Condition: stable pc2 rs5 17:54 13:18 BP 188 / 91; Pulse 61bpm; Resp 17bpm; Pulse Ox 99% RA; rs5 rs5 17:54 15:17 BP 198 / 99; Pulse 58bpm; Resp 16bpm; Pulse Ox 99%; bp rs5
[2023-09-15] MEDS ORDERED: cloNIDine HCL 0.1 MG TAB ONE (04:09)
--- NOTE | 2023-09-15 13:21 | RAD REPORT ---
EXAM DESCRIPTION: Knee Right 3 View (accession [id number]), Knee Left 3 View (accession [id number]) CLINICAL HISTORY: 78 years Female, Right knee pain COMPARISON: None. IMPRESSION: No fracture or dislocation. Prior plate and screw fixation of the right femur. Bilateral tricompartmental degenerative changes, right worse than left. Diffuse soft tissue swelling. No joint effusion bilaterally. Vascular calcifications. Electronically signed by: mAeya Argueta DO 09/15/2023 12:20 AM CDT RP 9 Due to temporary technical issues with the PACS/Fluency reporting system, reports are being signed by the in house radiologists without review as a courtesy to insure prompt reporting. The interpreting radiologist is fully responsible for the content of the report.
--- NOTE | 2023-09-15 13:41 | RAD REPORT ---
EXAM DESCRIPTION: Knee Right 3 View (accession [id number]), Knee Left 3 View (accession [id number]) CLINICAL HISTORY: 78 years Female, Right knee pain COMPARISON: None. IMPRESSION: No fracture or dislocation. Prior plate and screw fixation of the right femur. Bilateral tricompartmental degenerative changes, right worse than left. Diffuse soft tissue swelling. No joint effusion bilaterally. Vascular calcifications. Electronically signed by: Ameya Argueta DO 09/15/2023 12:20 AM CDT RP 9 Due to temporary technical issues with the PACS/Fluency reporting system, reports are being signed by the in house radiologists without review as a courtesy to insure prompt reporting. The interpreting radiologist is fully responsible for the content of the report.
--- NOTE | 2023-09-15 15:10 | P.HP ---
Certification for Inpatient Patient admitted to: Observation With expected LOS: <2 Midnights Patient will require the following post-hospital care: None Practitioner: I am a practitioner with admitting privileges, knowledge of patient current condition, hospital course, and medical plan of care. Services: Services provided to patient in accordance with Admission requirements found in Title 42 Section 412.3 of the Code of Federal Regulations Patient History Date of Service: 09/15/23 Reason for admission: Weakness History of Present Illness: 78-year-old female with past medical history of COPD, diabetes mellitusNIDDM, HLD, hypercholesterolemia, hypertension who was recently admitted to the hospital on 09/06/2023 and discharged on 09/10/2023 for urinary tract infection is back today after having a fall at home. I discharged her urine culture showed Enterobacter Cloacae which was sensitive to levofloxacin which she was sent home on. Prior to discharge patient was supine to sit with moderate to min assist, sit to stand with minimal contact-guard assist with walker, gait with front wheel walker 45 feet then 40 feet with minimal assist to contact-guard assist with 1 sitting rest. Family reports that prior to this last hospitalization she was ambulatory with a walker and did not need much assistance, since she has been out of the hospital she has been much more weak, having multiple falls and difficulty using her walker. She lives at home with her daughter and does not have 24-hour care given her multiple falls they are requesting additional assistance. Allergies No Known Allergies Allergy (Unverified 05/23/21 06:12) Home Medications: Allopurinol 300 mg PO BEDTIME 05/24/21 Aspirin 81 mg PO DAILY 05/24/21 Buspirone HCl [Buspar] 10 mg PO TID 05/24/21 Dapagliflozin Propanediol [Farxiga] 10 mg PO DAILY 05/24/21 Doxazosin Mesylate 8 mg PO BID 05/24/21 Escitalopram Oxalate [Lexapro] 10 mg PO DAILY 05/24/21 Fluticasone/Umeclidin/Vilanter [Trelegy Ellipta 100-62.5-25] 1 each IH DAILY 05/24/21 Gabapentin 300 mg PO BID 05/24/21 Gabapentin [Neurontin*] 100 mg PO BREAKFAST 05/24/21 Hydralazine HCl 25 mg PO BID 05/24/21 Insulin Detemir [Levemir] 47 units SQ BID 05/24/21 Insulin Glargine/Lixisenatide [Soliqua 100 Unit-33 Mcg/ml Pen] 10 units SQ BEDTIME 05/24/21 Levothyroxine [Synthroid*] 75 mcg PO [id number] 05/24/21 Losartan Potassium [Cozaar*] 50 mg PO BID 05/24/21 Montelukast [Singulair*] 10 mg PO DAILY 05/24/21 Nebivolol HCl [Bystolic] 10 mg PO DAILY 05/24/21 [place]-3 Fatty Acids [[place]-3] 1,000 mg PO DAILY 05/24/21 Omeprazole 20 mg PO BID 05/24/21 Pravastatin Sodium 80 mg PO BEDTIME 05/24/21 Cholestyramine [Cholestyramine Resin] 5 gm MC DAILY 09/07/23 Fluticasone/Umeclidin/Vilanter [Trelegy Ellipta 100-62.5-25] 1 puff IH DAILY 09/07/23 Tirzepatide [Mounjaro] 5 mg SQ EVERY 7TH DAY 09/07/23 Levofloxacin [Levaquin] 250 mg PO DAILY 5 Days #5 tab 09/10/23 - Past Medical/Surgical History Diabetic: Yes -: Hypertension -: Hyperlipidemia -: COPD-with home O2 -: Diabetes mellitus type 2 -: tonsilectomy -: R leg plates/pin -: dilation and curettage Psychosocial/ Personal History: patient lives at home with her daughter - Family History Mother -: Lung disease Father -: Diabetes - Social History Alcohol use: No CD- Drugs: No Caffeine use: No Place of Residence: Home Review of Systems 10-point ROS is otherwise unremarkable General: Weakness, Malaise Physical Examination - Physical Exam General: Alert, In no apparent distress, Oriented x2 HEENT: Atraumatic, PERRLA, Mucous membr. moist/pink, EOMI Neck: Supple, 2+ carotid pulse no bruit, No LAD Respiratory: Clear to auscultation bilaterally, Normal air movement Cardiovascular: Regular rate/rhythm, Normal S1 S2 Gastrointestinal: Normal bowel sounds, No tenderness Musculoskeletal: No tenderness Integumentary: No rashes Neurological: Normal speech, Normal strength at 5/5 x4 extr, Normal tone, Normal affect Assessment and Plan - Plan Assessment: Debility/weakness COPD on chronic home O2 Diabetes mellitus type 5ndh-bfpcmfe-nowgezuch Hyperlipidemia Hypertension Recent UTI Plan: Debility/weakness Prior to recent hospitalization was ambulatory with walker Now after discharge patient with extremely limited mobility, unable to ambulate alone with walker Has had multiple falls at home secondary to weakness Lives with daughter who goes to work during the day and cannot care for her PT consultation, geriatric social worker consult in place COPD on chronic home O2 Continue home medications, as needed oxygen Diabetes mellitus type 7rnh-pcfrels-haxsbqsyu ACHS Accu-Chek, sliding insulin Hyperlipidemia Hypertension Continue home medication Recent UTI Culture was sensitive to levofloxacin which she was discharged on previously DVT PPX: Lovenox Code status: Full Discharge Plan: Usp Plan to discharge in: 24 Hours - Advance Directives Does patient have a Living Will: No Does patient have a Durable POA for Healthcare: No - Code Status/Comfort Care Code Status Assessed: Yes (Full code) Critical Care: No Time Spent Managing Pts Care (In Minutes): 70
[2023-09-15 15:27] LABS: Hematocrit 40.4 % (36.0-45.0); Hemoglobin 12.8 g/dL (12.0-15.0); MCH 30.7 pg (27.0-35.0); MCHC 31.6 g/dL (32.0-36.0); MCV 97.3 fL (80-100); Platelets 170 thou/uL (152-406); RBC Red Blood Cell Count 4.16 M/uL (3.86-4.86); Red Cell Distribution Width 14.7 % (12.1-15.2)
[2023-09-15 15:42] LABS: Anion Gap 5.4 mEq/L (5.0-15.0); Potassium 4.4 mEq/L (3.5-5.1)
[2023-09-15] MEDS ORDERED: ONDANSETRON 4 MG/2 ML VIAL IV PRN (18:04)
[2023-09-15 18:18] VITALS: BMI 36.7
[2023-09-15] MEDS: NA CHLORIDE 0.9% 1,000 ML IV SCH (20:14)
[2023-09-16] MEDS ORDERED: D50W 25 GM/50 ML SYRINGE IV PRN (06:05)
[2023-09-16] MEDS ORDERED: GLUCAGON 1 MG/VIAL IM PRN (06:05)
[2023-09-16 06:08] LABS: Absolute Eosinophils 0.2 K/uL (0-0.5); Absolute Lymphocytes (CBC) 1.1 K/uL (0.7-4.9); Absolute Monocytes 0.6 K/uL (0.1-1.3); Absolute Neutrophil 7.2 K/uL (1.8-8.0); Basophils % 0.5 % (0-1.3); Eosinophils % 1.7 % (0-4.4); Hematocrit 37.8 % (36.0-45.0); Hemoglobin 12.3 g/dL (12.0-15.0); Lymphocytes % 11.9 % (15.3-44.8); MCH 31.6 pg (27.0-35.0); MCHC 32.7 g/dL (32.0-36.0); MCV 96.8 fL (80-100); MPV 10.1 fL (7.6-11.3); Monocytes % 6.8 % (3.3-12.3); Neutrophils % 79.1 % (41.7-73.7); Platelets 180 thou/uL (152-406); RBC Red Blood Cell Count 3.91 M/uL (3.86-4.86); Red Cell Distribution Width 14.8 % (12.1-15.2)
[2023-09-16] MEDS ORDERED: D10W 125 ML IV PRN (06:11)
[2023-09-16 06:54] LABS: Anion Gap 10.3 mEq/L (5.0-15.0); Potassium 4.3 mEq/L (3.5-5.1); Thyroid Stimulating Hormone 6.31 uIU/mL (0.358-3.740)
[2023-09-16] MEDS: INSULIN REGULAR (HUMAN) 100 UNIT/ML SQ SCH (09:45)
[2023-09-16] MEDS: ENOXAPARIN 40 MG/0.4 ML SQ SCH (09:45)
--- NOTE | 2023-09-16 10:15 | P.PN ---
Date of Service: 09/16/23 Subjective: No acute events overnight Reports pain when bending right knee ROS: 10 point ROS as noted above, otherwise negative Physical exam GEN: Alert, oriented x2 , NAD HEENT: Normal conjunctiva, sclera anicteric CV: Regular rate and rhythm, no edema Pulm: Nonlabored respirations on room air ABD: Soft, nontender, nondistended MSK: No joint tenderness Integumentary: No rashes Neuro: Normal speech, normal affect Vitals reviewed Assessment: Debility/weakness COPD on chronic home O2 Diabetes mellitus type 4azm-cwaljrm-zcrquopik Hyperlipidemia Hypertension Recent UTI Plan: Debility/weakness Prior to recent hospitalization was ambulatory with walker Now after discharge patient with extremely limited mobility, unable to ambulate alone with walker Has had multiple falls at home secondary to weakness Lives with daughter who goes to work during the day and cannot care for her PT consultation, social studies department chair consult in place Awaiting further PT eval Limited by pain in right knee after fall COPD on chronic home O2 Continue home medications, as needed oxygen Diabetes mellitus type 3irz-aymyawt-nfdluyivj ACHS Accu-Chek, sliding insulin Hyperlipidemia Hypertension Continue home medication Recent UTI Culture was sensitive to levofloxacin which she was discharged on previously DVT PPX: Lovenox Code status: Full Discharge Plan: Long-Term Plan to discharge in: 24 Hours Time Spent Managing Pts Care (In Minutes): 35
[2023-09-16] MEDS: HYDRALAZINE HCL 20 MG/ML VIAL IV PRN (21:09)
[2023-09-17 06:22] LABS: Absolute Basophils 0.1 K/uL (0-0.5); Absolute Eosinophils 0.1 K/uL (0-0.5); Absolute Lymphocytes (CBC) 1.2 K/uL (0.7-4.9); Absolute Monocytes 0.6 K/uL (0.1-1.3); Basophils % 0.7 % (0-1.3); Eosinophils % 0.6 % (0-4.4); Hematocrit 36.7 % (36.0-45.0); Lymphocytes % 13.7 % (15.3-44.8); MCH 31.4 pg (27.0-35.0); MCHC 32.7 g/dL (32.0-36.0); MCV 96.1 fL (80-100); Monocytes % 6.9 % (3.3-12.3); Neutrophils % 78.1 % (41.7-73.7); Platelets 148 thou/uL (152-406); RBC Red Blood Cell Count 3.81 M/uL (3.86-4.86); Red Cell Distribution Width 14.3 % (12.1-15.2)
[2023-09-17 08:13] LABS: Anion Gap 4.5 mEq/L (5.0-15.0); Potassium 3.5 mEq/L (3.5-5.1)
--- NOTE | 2023-09-17 09:54 | P.PN ---
Date of Service: 09/17/23 Subjective: No acute events overnight Reports pain when bending right knee Working well with PT pending SNF ROS: 10 point ROS as noted above, otherwise negative Physical exam GEN: Alert, oriented x2 , NAD HEENT: Normal conjunctiva, sclera anicteric CV: Regular rate and rhythm, no edema Pulm: Nonlabored respirations on room air ABD: Soft, nontender, nondistended MSK: No joint tenderness Integumentary: No rashes Neuro: Normal speech, normal affect Vitals reviewed Assessment: Debility/weakness COPD on chronic home O2 Diabetes mellitus type 6fdm-qescind-ancwjeolp Hyperlipidemia Hypertension Recent UTI Plan: Debility/weakness Prior to recent hospitalization was ambulatory with walker Now after discharge patient with extremely limited mobility, unable to ambulate alone with walker Has had multiple falls at home secondary to weakness Lives with daughter who goes to work during the day and cannot care for her PT consultation, social media marketing analyst consult in place Working well with PT, anticipate SNF placement Limited by pain in right knee after fall COPD on chronic home O2 Continue home medications, as needed oxygen Diabetes mellitus type 0fps-jtrcebm-pgvigefaq ACHS Accu-Chek, sliding insulin Hyperlipidemia Hypertension Continue home medication Recent UTI Culture was sensitive to levofloxacin which she was discharged on previously DVT PPX: Lovenox Code status: Full Discharge Plan: Half-Way Plan to discharge in: 24 Hours Time Spent Managing Pts Care (In Minutes): 35
[2023-09-18 07:02] LABS: Absolute Basophils 0.1 K/uL (0-0.5); Absolute Lymphocytes (CBC) 1.2 K/uL (0.7-4.9); Absolute Monocytes 0.7 K/uL (0.1-1.3); Basophils % 0.7 % (0-1.3); Eosinophils % 0.4 % (0-4.4); Hematocrit 37.5 % (36.0-45.0); Hemoglobin 12.1 g/dL (12.0-15.0); Lymphocytes % 13.6 % (15.3-44.8); MCH 31.1 pg (27.0-35.0); MCHC 32.4 g/dL (32.0-36.0); MPV 10.2 fL (7.6-11.3); Monocytes % 7.6 % (3.3-12.3); Neutrophils % 77.7 % (41.7-73.7); Platelets 177 thou/uL (152-406); Red Cell Distribution Width 14.6 % (12.1-15.2)
[2023-09-18 07:15] LABS: Anion Gap 9.4 mEq/L (5.0-15.0); Potassium 3.4 mEq/L (3.5-5.1)
[2023-09-18] MEDS: LOSARTAN POTASSIUM 50 MG TABLET PO SCH (08:46)
[2023-09-18] MEDS: CETIRIZINE HCL 5 MG TABLET PO SCH (08:46)
[2023-09-18] MEDS: HYDRALAZINE HCL 25 MG TABLET PO SCH (08:46)
[2023-09-18] MEDS: GABAPENTIN 100 MG CAP PO SCH (08:47)
[2023-09-18] MEDS: ESCITALOPRAM 20 MG TAB PO SCH (08:48)
[2023-09-18] MEDS: DOXAZOSIN 4 MG TAB PO SCH (08:49)
[2023-09-18] MEDS: PANTOPRAZOLE 40MG TABLET PO SCH (08:49)
[2023-09-18] MEDS: ASPIRIN EC 81 MG TAB PO SCH (08:49)
[2023-09-18] MEDS: BUSPIRONE HCL 5 MG TABLET PO SCH (08:49)
[2023-09-18] MEDS: NEBIVOLOL HCL 20 MG TABLET PO SCH (09:13)
--- NOTE | 2023-09-18 09:24 | P.PN ---
Date of Service: 09/18/23 Subjective: No acute events overnight Reports pain when bending right knee Working well with PT pending SNF ROS: 10 point ROS as noted above, otherwise negative Physical exam GEN: Alert, oriented x2 , NAD HEENT: Normal conjunctiva, sclera anicteric CV: Regular rate and rhythm, no edema Pulm: Nonlabored respirations on room air ABD: Soft, nontender, nondistended MSK: No joint tenderness Integumentary: No rashes Neuro: Normal speech, normal affect Vitals reviewed Assessment: Debility/weakness COPD on chronic home O2 Diabetes mellitus type 7akw-ectulgc-qhciebupb Hyperlipidemia Hypertension Recent UTI Plan: Debility/weakness Prior to recent hospitalization was ambulatory with walker Now after discharge patient with extremely limited mobility, unable to ambulate alone with walker Has had multiple falls at home secondary to weakness Lives with daughter who goes to work during the day and cannot care for her PT consultation, social work administrator consult in place Working well with PT, anticipate SNF placement Limited by pain in right knee after fall COPD on chronic home O2 Continue home medications, as needed oxygen Diabetes mellitus type 2bry-dmxdquj-blqphhcin ACHS Accu-Chek, sliding insulin Hyperlipidemia Hypertension Home medications continued Recent UTI Culture was sensitive to levofloxacin which she was discharged on previously DVT PPX: Lovenox Code status: Full Discharge Plan: [facility] Plan to discharge in: 24 Hours Time Spent Managing Pts Care (In Minutes): 35
[2023-09-18] MEDS: CALCIUM CARBONATE CHEW 500MG TAB PO SCH (11:39)
[2023-09-18] MEDS: allopurinoL 300 MG TAB PO SCH (17:22)
[2023-09-18] MEDS: MONTELUKAST 10 MG TAB PO SCH (21:08)
--- NOTE | 2023-09-19 14:07 | P.PN ---
Date of Service: 09/19/23 Subjective: No acute events overnight Reports pain when bending right knee pending SNF ROS: 10 point ROS as noted above, otherwise negative Physical exam GEN: Alert, oriented x2-3 , NAD, very hard of hearing, better hearing on the left side HEENT: Normal conjunctiva, sclera anicteric CV: Regular rate and rhythm, no edema Pulm: Nonlabored respirations on room air ABD: Soft, nontender, nondistended MSK: No joint tenderness Integumentary: No rashes Neuro: Normal speech, normal affect Vitals reviewed Assessment: Debility/weakness COPD on chronic home O2 Diabetes mellitus type 7dzq-yhzynmf-uhxmtvixz Hyperlipidemia Hypertension Recent UTI Plan: Debility/weakness Prior to recent hospitalization was ambulatory with walker Now after discharge patient with extremely limited mobility, unable to ambulate alone with walker Has had multiple falls at home secondary to weakness Lives with daughter who goes to work during the day and cannot care for her PT consultation, social worker clinical consult in place Working well with PT, anticipate SNF placement Limited by pain in right knee after fall COPD on chronic home O2 Continue home medications, as needed oxygen Diabetes mellitus type 8jed-nzgrlrl-ejfbfdpek ACHS Accu-Chek, sliding insulin Hyperlipidemia Hypertension Home medications continued Recent UTI Culture was sensitive to levofloxacin which she was discharged on previously no fevers, WBC WNL watch for fevers/leukocytosis DVT PPX: Lovenox Code status: Full Discharge Plan: [facility] Plan to discharge in: 24 Hours Time Spent Managing Pts Care (In Minutes): 35
[2023-09-19] MEDS: ENSURE MAX PROTEIN 330 ML LIQUID PO SCH (15:00)
[2023-09-19 17:42] VITALS: O2SAT 93
[2023-09-19] MEDS: GABAPENTIN 300 MG CAP PO SCH (21:09)
[2023-09-20 07:23] LABS: Hematocrit 36.8 % (36.0-45.0); Hemoglobin 11.8 g/dL (12.0-15.0); MCH 31.3 pg (27.0-35.0); MCHC 32.1 g/dL (32.0-36.0); MCV 97.5 fL (80-100); MPV 9.9 fL (7.6-11.3); Platelets 164 thou/uL (152-406); RBC Red Blood Cell Count 3.78 M/uL (3.86-4.86)
[2023-09-20 07:36] LABS: Anion Gap 7.6 mEq/L (5.0-15.0); Potassium 3.6 mEq/L (3.5-5.1)
[2023-09-20] MEDS: PANTOPRAZOLE 40MG TABLET PO SCH (09:34)
[2023-09-20 12:46] VITALS: BP 158/70; TEMP 97.8
--- NOTE | 2023-09-20 13:29 | P.DS ---
Admission Date: 09/16/23 Discharge Date: 09/20/23 Disposition: TRANSFER TO SNF - REHAB Discharge Condition: GOOD Reason for Admission: Weakness Brief History of Present Illness: 78-year-old female with past medical history of COPD, diabetes mellitusNIDDM, HLD, hypercholesterolemia, hypertension who was recently admitted to the hospital on 09/06/2023 and discharged on 09/10/2023 for urinary tract infection is back today after having a fall at home. I discharged her urine culture showed Enterobacter Cloacae which was sensitive to levofloxacin which she was sent home on. Prior to discharge patient was supine to sit with moderate to min assist, sit to stand with minimal contact-guard assist with walker, gait with front wheel walker 45 feet then 40 feet with minimal assist to contact-guard assist with 1 sitting rest. Family reports that prior to this last hospitalization she was ambulatory with a walker and did not need much assistance, since she has been out of the hospital she has been much more weak, having multiple falls and difficulty using her walker. She lives at home with her daughter and does not have 24-hour care given her multiple falls they are requesting additional assistance. Hospital Course: Assessment: Debility/weakness COPD on chronic home O2 Diabetes mellitus type 4rif-xnjqgem-avfhpojty Hyperlipidemia Hypertension Recent UTI Patient had a recent admission here from 09/05 to 09/09 for urinary tract infection, she completed a course of antibioticsLevaquin but was very weak at home and had multiple falls. She is unable to be cared for at home and was admitted to the hospital for evaluation of PT. Patient still very weak has been working well with physical therapy, she has been approved for SNF for further PT prior to returning home. Home medications to be continued as previously prescribed, patient has remained afebrile throughout hospitalization with normal blood cell count. Patient is very hard of hearing and hears best out of her left ear. Vital Signs/Physical Exam: Temp Pulse Resp BP Pulse Ox 97.8 F 81 22 H 158/70 H 94 09/20/23 12:00 09/20/23 12:00 09/20/23 12:00 09/20/23 12:09/20/23 12:00 General: Alert, In no apparent distress, Oriented x3, Other (Hard of hearing (left ear best)) HEENT: Atraumatic, PERRLA Neck: Supple, JVD not distended Respiratory: Clear to auscultation bilaterally, Normal air movement Cardiovascular: Regular rate/rhythm, Normal S1 S2 Gastrointestinal: Normal bowel sounds, No tenderness Musculoskeletal: No tenderness Integumentary: No rashes Neurological: Normal speech, Normal tone, Normal affect Laboratory Data at Discharge: WBC 10.30 thou/uL (4.3-10.9) 09/20/23 07:00 Hgb 11.8 g/dL (12.0-15.0) L 09/20/23 07:00 Hct 36.8 % (36.0-45.0) 09/20/23 07:00 Plt Count 164 thou/uL (152-406) 09/20/23 07:00 Sodium 139 mEq/L (136-145) 09/20/23 07:00 Potassium 3.6 mEq/L (3.5-5.1) 09/20/23 07:00 BUN 21 mg/dL (7-18) H 09/20/23 07:00 Creatinine 0.99 mg/dL (0.55-1.02) 09/20/23 07:00 Glucose 183 mg/dL (74-106) H 09/20/23 07:00 Home Medications: Allopurinol 300 mg PO DAILY AT SUPPER 09/17/23 Aspirin [Vazalore] 81 mg PO DAILY 09/17/23 Buspirone HCl [Buspar] 10 mg PO TID 09/17/23 Calcium Carbonate [Calcium] 600 mg PO NOON 09/17/23 Cetirizine HCl [Zyrtec*] 10 mg PO DAILY 09/17/23 Cholecalciferol (Vitamin D3) [Vitamin D3] 1,000 units PO NOON 09/17/23 Doxazosin Mesylate 4 mg PO BID 09/17/23 Escitalopram [Lexapro*] 10 mg PO DAILY 09/17/23 Gabapentin [Neurontin*] 300 mg PO BID 09/17/23 Hydralazine HCl 50 mg PO BID 09/17/23 Insulin Glargine,Hum.rec.anlog [Lantus] 10 units SQ DAILY 09/17/23 Losartan Potassium [Cozaar*] 50 mg PO BID 09/17/23 Magnesium Oxide [Magnesium] 400 mg PO NOON 09/17/23 Montelukast [Singulair*] 10 mg PO DAILY 09/17/23 Nebivolol HCl [Bystolic*] 10 mg PO DAILY 09/17/23 [place]-3 Acid Ethyl Esters 1 cap PO NOON 09/17/23 Omeprazole 20 mg PO BID 09/17/23 Pediatric Multivit No.203/Iron [Flintstones with Iron Tab Chew] 1 tab PO NOON 09/17/23 Turmeric Root Extract [Turmeric Curcumin] 500 mg PO NOON 09/17/23 Physician Discharge Instructions: Patient had a recent admission here from 09/05 to 09/09 for urinary tract infection, she completed a course of antibioticsLevaquin but was very weak at home and had multiple falls. She is unable to be cared for at home and was admitted to the hospital for evaluation of PT. Patient still very weak has been working well with physical therapy, she has been approved for SNF for further PT prior to returning home. Home medications to be continued as previously prescribed, patient has remained afebrile throughout hospitalization with normal blood cell count. Patient is very hard of hearing and hears best out of her left ear. Diet: Regular Activity: Fall precautions Followup: NONE,NONE [Primary Care Provider] - 1-2 Weeks Time spent managing pt's care (in minutes): 30
== END 2023-09-20 16:18 | DRG 948 ==
LOC: ER 22:47 → ERHOLD 09-15 15:13 → 4TH 09-15 18:14 → OBSVTOIN 09-16 17:40
PROVIDERS: ADMIT Internal Medicine; ATTEND Hospitalist
DX: R53.81 Other malaise (principal); E11.9 Type 2 diabetes mellitus without complications; I10 Essential (primary) hypertension; H91.91 Unspecified hearing loss, right ear; E78.00 Pure hypercholesterolemia, unspecified; J44.9 Chronic obstructive pulmonary disease, unspecified; R29.6 Repeated falls; Z91.81 History of falling; Z91.048 Other nonmedicinal substance allergy status; S80.02XA Contusion of left knee, initial encounter; S80.01XA Contusion of right knee, initial encounter; W18.30XA Fall on same level, unspecified, initial encounter; Y93.9 Activity, unspecified; Y99.9 Unspecified external cause status; Y92.019 Unspecified place in single-family (private) house as the place of occurrence of the external cause; Z79.4 Long term (current) use of insulin; Z79.82 Long term (current) use of aspirin; Z99.81 Dependence on supplemental oxygen; Z79.890 Hormone replacement therapy; Z79.899 Other long term (current) drug therapy
CPT/HCPCS: 36415; 80048; 82947; 84439; 84443; 85025; 85027; 97110; 97116; 97161; 97530; 99285; G0378; J0360; J1650; J7030

== ENCOUNTER 2023-11-19 21:52 | Inpatient (IN) | payer OTHER ==
[2023-11-19] MEDS ORDERED: ALBUTEROL 2.5 MG/3 ML NEB SOL ONE (22:15)
[2023-11-19] MEDS ORDERED: MAGNESIUM SULFATE 1 gm IVPB 1 GM/100 ML BAG IV ONE (22:15)
[2023-11-19 23:02] LABS: Absolute Eosinophils 0.1 K/uL (0-0.5); Absolute Lymphocytes (CBC) 1.4 K/uL (0.7-4.9); Absolute Monocytes 0.5 K/uL (0.1-1.3); Absolute Neutrophil 7.4 K/uL (1.8-8.0); Basophils % 0.4 % (0-1.3); Eosinophils % 0.8 % (0-4.4); Hematocrit 34.7 % (36.0-45.0); Hemoglobin 11.2 g/dL (12.0-15.0); Lymphocytes % 14.8 % (15.3-44.8); MCH 30.4 pg (27.0-35.0); MCHC 32.3 g/dL (32.0-36.0); MCV 94.1 fL (80-100); MPV 10.5 fL (7.6-11.3); Monocytes % 5.6 % (3.3-12.3); Neutrophils % 78.4 % (41.7-73.7); Platelets 175 thou/uL (152-406); RBC Red Blood Cell Count 3.69 M/uL (3.86-4.86); Red Cell Distribution Width 15.5 % (12.1-15.2)
[2023-11-19 23:11] LABS: Albumin 2.7 g/dL (3.4-5.0); Albumin/Globulin Ratio 0.6 (1.1-1.8); Anion Gap 6.5 mEq/L (5.0-15.0); Bilirubin Total 0.5 mg/dL (0.2-1.0); Globulin 4.2 g/dL (2.3-3.5); Potassium 3.5 mEq/L (3.5-5.1); Protein, Total 6.9 g/dL (6.4-8.2)
[2023-11-19 23:19] LABS: PT Prothrombin Time 12.2 SECONDS (9.4-12.5); PTT, Activated Partial Thromb 30.2 SECONDS (24.3-36.9); Protime INR 1.09
[2023-11-19 23:22] LABS: SARS-CoV-2 Antigen CONTROL BLUE LINE VIS/BG OK; SARS-CoV-2 Antigen Rapid Res Negative (Negative)
--- NOTE | 2023-11-19 23:33 | ER ---
Nurse's Notes [facility] Name: Kaitlynn Snider Age: 78 yrs Sex: Female : 1945 Arrival Date: 11/19/2023 Time: 21:52 Bed 19 Private MD: Diagnosis: COPD/ Chronic obstructive pulmonary disease with (acute) exacerbation Presentation: 11/18 21:57 Chief complaint: EMS states: Per EMS: reported by [facility] SOB all day and HTN, was mt4 unable to bring down with patient's regular meds, alert to self, time, situation, EMS states pt reading 88% on 4 liters at baseline, Solumederol 125mg and breathing treatments were given on the way here. Denies N/V. PMH COPD, DM, depression, IBS, HTN, Osteoarthritis, Muscle wasting. Coronavirus screen: difficulty breathing. Ebola Screen: No symptoms or risks identified at this time. Initial Sepsis Screen: Does the patient meet any 2 criteria? RR > 20 per min. Does the patient have a suspected source of infection? No. Patient's initial sepsis screen is negative. Risk Assessment: Do you want to hurt yourself or someone else? Patient reports no desire to harm self or others. Onset of symptoms is unknown. 21:57 Method Of Arrival: EMS: [facility] mt4 21:57 Acuity: RHINA 3 mt4 Triage Assessment: 22:05 General: Appears obese, Behavior is cooperative, anxious. Pain: Denies pain. Neuro: mt4 Level of Consciousness is awake, alert, obeys commands, Oriented to person, place, time, situation, Printer Slotter Feeder are Weakness Speech is normal. Cardiovascular: Capillary refill < 3 seconds. Respiratory: Airway is patent Respiratory effort is labored, Respiratory pattern is tachypnea Breath sounds with wheezes. GI: Abdomen is round obese, Abd is non tender. : Denies burning with urination. Musculoskeletal: Capillary refill < 3 seconds, Range of motion: limited in all extremities. Historical: - Allergies: 22:05 No Known Allergies; mt4 - PMHx: 22:05 COPD; Diabetes - NIDDM; Hypertension; Major depressive disorder; Anxiety; Irritable mt4 bowel syndrome; Osteoarthritis; Sleep apnea; High Cholesterol; - Immunization history:: Adult Immunizations up to date. - Infectious Disease History:: Denies. - Social history:: Smoking status: Patient denies any tobacco usage or history of. Screenin:19 [facility] ED Fall Risk Assessment (Adult) History of falling in the last 3 months, mt4 including since admission No falls in past 3 months (0 pts) Confusion or Disorientation Yes (5 pts) Intoxicated or Sedated No (0 pts) Impaired Gait Yes (1 pt) Mobility Assist Device Used Yes (1 pt) Altered Elimination Yes (1 pt) Score/Fall Risk Level 3 or more points = High Risk. Abuse screen: Denies injuries from another. Nutritional screening: No deficits noted. Tuberculosis screening: No symptoms or risk factors identified. Exposure risk/Travel Screening: None identified. Assessment: 22:19 Reassessment: Patient is alert, oriented x 3, equal unlabored respirations, skin mt4 warm/dry/pink. General: Appears obese, Behavior is cooperative, anxious. Pain: Denies pain. Neuro: Level of Consciousness is awake, alert, obeys commands, Oriented to person, place, time, situation, Speech is normal. Cardiovascular: Capillary refill < 3 seconds. Respiratory: Airway is patent Respiratory effort is labored, Respiratory pattern is tachypnea. EENT: Parent/caregiver reports the patient having decreased hearing. 11/19 00:06 Reassessment: Patient is alert, oriented x 3, equal unlabored respirations, skin mt4 warm/dry/pink. General: Appears obese, Behavior is cooperative. Pain: Denies pain. Neuro:. Neuro: Level of Consciousness is awake, alert, obeys commands. Respiratory: Airway is patent Respiratory effort is labored, Respiratory pattern is regular. GI: Abdomen is round obese. 00:28 General: Appears in no apparent distress. obese, Behavior is cooperative. Pain: Denies mt4 pain. Neuro: Level of Consciousness is awake, alert, obeys commands, Oriented to person, time, situation. Respiratory: Airway is patent Respiratory effort is labored, Respiratory pattern is regular. Vital Signs: 11/18 21:57 BP 179 / 65; Pulse 75; Resp 28 S; Temp 98.1(O); Pulse Ox 93% on 4 lpm NC; Pain 0/10; mt4 22:12 BP 179 / 65; Pulse 75; Resp 28; Temp 98.1; Pulse Ox 93% on 4 lpm NC; Pain 0/10; mt4 23:10 BP 170 / 91; Pulse 70; Resp 26 S; Pulse Ox 96% on 5 lpm NC; mt4 23:44 BP 160 / 67; Pulse 68; Resp 18 S; Pulse Ox 92% on 4 lpm NC; mt4 11/19 00:16 BP 174 / 76; Pulse 75; Resp 20 S; Temp 98.9(O); Pulse Ox 95% on 4 lpm NC; Pain 0/10; mt4 11/18 21:57 Pain Scale: Adult mt4 22:12 Pain Scale: Adult mt4 11/19 00:16 Pain Scale: Adult mt4 [place] Coma Score: 11/18 22:19 Eye Response: spontaneous(4). Motor Response: obeys commands(6). Verbal Response: mt4 oriented(5). Total: 15. ED Course: 21:56 Patient arrived in ED. kb 21:56 Anaid Hernandez FNP-C [facility]. kb 21:56 Emery Morales MD is Attending Physician. kb 21:57 Jennifer Freedman, RN is Primary Nurse. mt4 22:05 Triage completed. mt4 22:05 Arm band placed on right wrist. EKG completed in triage. Results shown to MD. EKG mt4 completed in triage. Results shown to MD. EKG completed in triage. Results shown to MD. EKG completed in triage. Results shown to MD. 22:07 EKG done, by ED staff, reviewed by Anaid GILL. oe 22:19 No provider procedures requiring assistance completed. mt4 22:19 Patient has correct armband on for positive identification. Fall risk band placed. Bed mt4 in low position. Call light in reach. Side rails up X 1. Client placed on continuous cardiac and pulse oximetry monitoring. NIBP monitoring applied. desk monitor on. Pulse ox on. Door closed. Lights dimmed. Warm blanket given. Pillow given. Verbal reassurance given. Head of bed elevated. 22:42 Accessed Maintain EMS IV. Dressing intact. Good blood return noted. Site clean \T\ dry. mt4 Gauge \T\ site: 22g. Flushed with 10 mL NS IV. 22:42 Provided Education on: medication and breathing treatments, labs . mt4 22:44 Warm blanket given. oe 22:45 Chest Single View XRAY In Process Unspecified. EDMS 23:33 Iwueke, Izuchukwu, MD is Hospitalizing Provider. kb 11/19 00:06 Patient has correct armband on for positive identification. Bed in low position. Call mt4 light in reach. Side rails up X 1. Client placed on continuous cardiac and pulse oximetry monitoring. NIBP monitoring applied. desk monitor on. Pulse ox on. Door closed. Lights dimmed. Warm blanket given. Pillow given. Verbal reassurance given. 00:27 No apparent distress. Resting quietly. mt4 00:31 Patient admitted, IV remains in place. mt4 Administered Medications: 11/18 22:42 Drug: Magnesium Sulfate IVPB 1 grams IVPB once over 1 hrs Route: IVPB; Infused Over: 1 mt4 hrs; Site: left antecubital; 11/19 00:09 Follow up: IV Status: Completed infusion mt4 11/18 22:42 Drug: Albuterol Inhalation 2.5 mg Inhalation once Route: Inhalation; mt4 23:10 Follow up: Response: No adverse reaction mt4 23:43 Drug: Rocephin IV 1 grams IV at calculated rate once; Given slow IV push per pharmacy mt4 instructions Route: IV; Rate: calculated rate; Site: left antecubital; 11/19 00:05 Follow up: Response: No adverse reaction mt4 00:09 Follow up: IV Status: Completed infusion mt4 Medication: 11/18 22:19 VIS not applicable for this client. mt4 Outcome: 23:33 Decision to Hospitalize by Provider. kb 11/19 00:27 Admitted to Med/surg accompanied by tech, via stretcher, room 213, with oxygen, mt4 Condition: stable Instructed on the need for admit, 00:29 Patient left the ED. mt4 Signatures: Dispatcher [employer] EDCT Anaid Hernandez, BRIDGET ARCHIVAL RECORDS CLERK-Gus Schwab M[place], RN RN mt4 Corrections: (The following items were deleted from the chart) 11/18 22:09 22:05 Allergies: Tape; mt4 mt4 22:09 22:05 PMHx: Hyperlipidemia; mt4 mt4 11/19 00:31 00:27 Admitted to Med/surg accompanied by tech, via stretcher, room 202, with oxygen, mt4 mt4
--- NOTE | 2023-11-19 23:33 | EDPHYS ---
Physician Documentation [facility] Name: Kaitlynn Snider Age: 78 yrs Sex: Female : 1945 Arrival Date: 11/19/2023 Time: 21:52 Bed 19 Private MD: ED Physician Emery Morales HPI: 11/18 22:26 This 78 yrs old Female presents to ER via EMS with complaints of shortness of breath. kb 22:26 Pt is a 78 year old female with a history of COPD who was [facility] jail for kb shortness of breath that has been ongoing all day. Pt is on 4L oxygen at all times. EMS reports O2 sat of 88% upon their arrival with pt on home o2. EMS administered neb treatment and solumedrol 125mg IV. . Historical: - Allergies: 22:05 No Known Allergies; mt4 - PMHx: 22:05 COPD; Diabetes - NIDDM; Hypertension; Major depressive disorder; Anxiety; Irritable mt4 bowel syndrome; Osteoarthritis; Sleep apnea; High Cholesterol; - Immunization history:: Adult Immunizations up to date. - Infectious Disease History:: Denies. - Social history:: Smoking status: Patient denies any tobacco usage or history of. ROS: 22:26 Constitutional: As per HPI kb Exam: 22:26 Constitutional: This is a well developed, well nourished patient who is awake, alert, kb and in no acute distress. Head/Face: Normocephalic, atraumatic. ENT: Moist Mucous membranes Cardiovascular: Regular rate Abdomen/GI: Soft, non-tender. No distention Skin: Warm, dry with normal turgor. Normal color. MS/ Extremity: Pulses equal, no cyanosis. Neurovascular intact. Full, normal range of motion. Neuro: Awake and alert, GCS 15, oriented to person, place, time, and situation. Moves all extremities. 22:26 Respiratory: mild respiratory distress is noted, Respirations: labored breathing, that is mild, Breath sounds: wheezing: expiratory that is mild, is scattered, 22:31 ECG was reviewed by the Attending Physician. kb Vital Signs: 21:57 BP 179 / 65; Pulse 75; Resp 28 S; Temp 98.1(O); Pulse Ox 93% on 4 lpm NC; Pain 0/10; mt4 22:12 BP 179 / 65; Pulse 75; Resp 28; Temp 98.1; Pulse Ox 93% on 4 lpm NC; Pain 0/10; mt4 23:10 BP 170 / 91; Pulse 70; Resp 26 S; Pulse Ox 96% on 5 lpm NC; mt4 23:44 BP 160 / 67; Pulse 68; Resp 18 S; Pulse Ox 92% on 4 lpm NC; mt4 11/19 00:16 BP 174 / 76; Pulse 75; Resp 20 S; Temp 98.9(O); Pulse Ox 95% on 4 lpm NC; Pain 0/10; mt4 11/18 21:57 Pain Scale: Adult mt4 22:12 Pain Scale: Adult mt4 11/19 00:16 Pain Scale: Adult mt4 [place] Coma Score: 11/18 22:19 Eye Response: spontaneous(4). Motor Response: obeys commands(6). Verbal Response: mt4 oriented(5). Total: 15. MDM: 21:56 Patient medically screened. kb 22:28 Data reviewed: vital signs, nurses notes. Historians other than the Patient: EMS: [facility]. 23:31 Differential diagnosis: Chronic Obstructive Pulmonary Disease pulmonary edema. kb Consideration of Admission/Observation Patient was admitted/placed on observation. Escalation of care including admission/observation considered. Management of patient was discussed with the following: Hospitalist: ASHLEE Cunha accepts pt for admission under Dr Hale. Counseling: I had a detailed discussion with the patient and/or guardian regarding the historical points, exam findings, and any diagnostic results supporting the discharge/admit diagnosis, lab results, radiology results, the need for further work-up and treatment in the hospital. 11/18 21:57 Order name: Blood Culture Adult (2) 11/18 21:57 Order name: CBC with Diff; Complete Time: 23:06 11/18 21:57 Order name: CMP; Complete Time: 23:13 11/18 21:57 Order name: Lactate w/ 2H reflex if indic.; Complete Time: 23:26 11/18 21:57 Order name: Protime (+inr); Complete Time: 23:26 kb 11/18 21:57 Order name: Ptt, Activated; Complete Time: 23:26 11/18 21:57 Order name: Flu; Complete Time: 23:26 11/18 21:57 Order name: SARS-COV-2 Antigen Rapid; Complete Time: 23:26 kb 11/18 21:57 Order name: Chest Single View XRAY kb 11/18 23:43 Order name: CONS Physician Consult EDMS 11/18 21:57 Order name: Accucheck; Complete Time: 23:43 kb 11/18 21:57 Order name: Cardiac monitoring; Complete Time: 22:14 kb 11/18 21:57 Order name: EKG - Nurse/Tech; Complete Time: 22:14 kb 11/18 21:57 Order name: IV Saline Lock - Large Bore; Complete Time: 22:18 kb 11/18 21:57 Order name: Labs collected and sent; Complete Time: 00:05 kb 11/18 21:57 Order name: O2 Per Protocol; Complete Time: 22:18 kb 11/18 21:57 Order name: O2 Sat Monitoring; Complete Time: 22:18 kb 11/18 21:57 Order name: Vital Signs; Complete Time: 22:18 kb 11/18 22:56 Order name: Misc. Order: blue top needs to be redrawn; Complete Time: 23:09 sp EC:31 Rate is 75 beats/min. Rhythm is regular. Left axis deviation noted. HI interval is kb prolonged at 204 msec. QRS interval is normal at 100 msec. QT interval is normal at 477 msec. Administered Medications: 22:42 Drug: Magnesium Sulfate IVPB 1 grams IVPB once over 1 hrs Route: IVPB; Infused Over: 1 mt4 hrs; Site: left antecubital; 11/19 00:09 Follow up: IV Status: Completed infusion mt4 11/18 22:42 Drug: Albuterol Inhalation 2.5 mg Inhalation once Route: Inhalation; mt4 23:10 Follow up: Response: No adverse reaction mt4 23:43 Drug: Rocephin IV 1 grams IV at calculated rate once; Given slow IV push per pharmacy mt4 instructions Route: IV; Rate: calculated rate; Site: left antecubital; 11/19 00:05 Follow up: Response: No adverse reaction mt4 00:09 Follow up: IV Status: Completed infusion mt4 Disposition: 01:10 Co-signature as Attending Physician, Emery Morales MD I reviewed the patient's care rt provided by the Advanced Practice Provider and agree with the diagnosis and treatment plan. Disposition Summary: 11/19/23 23:33 Hospitalization Ordered Notes: Hospitalization Status: Observation kb Provider: Tawanda Velez Location: Telemetry/MedSurg (observation) kb Condition: Stable kb Problem: new kb Symptoms: are unchanged kb Bed/Room Type: Standard Room Assignment: 213(11/19/23 23:46) sp Diagnosis - COPD/ Chronic obstructive pulmonary disease with (acute) exacerbation kb Forms: - Medication Reconciliation Form kb - SBAR form kb - Leadership Thank You Letter kb Signatures: Dispatcher [employer] EDMS DavidAnaid, BOTTOM BUFFER-C BOTTOM BUFFER-Ckb Loyda Pack sp Emery Morales MD MD rt Jennifer Freedman RN RN mt4 Corrections: (The following items were deleted from the chart) 11/18 21:57 21:57 BLOOD CULTURE*+BA.LAB.BRZ ordered. EDMS EDMS 21:57 21:57 CBC+H.LAB.BRZ ordered. EDMS EDMS 21:57 21:57 COMPREHENSIVE METABOLIC PANEL+C.LAB.BRZ ordered. EDMS EDMS 21:57 21:57 LACTATE+C.LAB.BRZ ordered. EDMS EDMS 21:57 21:57 PROTIME (+INR)+COAG.LAB.BRZ ordered. EDMS EDMS 21:57 21:57 PTT, ACTIVATED+COAG.LAB.BRZ ordered. EDMS EDMS 21:57 21:57 Influenza Screen (A \T\ B)+BA.LAB.BRZ ordered. EDMS EDMS 21:57 21:57 SARS-COV-2 Antigen Rapid+I.LAB.BRZ ordered. EDMS EDMS 21:58 21:57 Chest Single View+RAD.RAD.BRZ ordered. EDMS EDMS 22:09 22:05 Allergies: Tape; mt4 mt4 22:09 22:05 PMHx: Hyperlipidemia; mt4 mt4 23:46 23:33 kb sp
[2023-11-19] MEDS ORDERED: CEFTRIAXONE 1000 MG/VIAL ONE (23:37)
--- NOTE | 2023-11-19 23:40 | P.HP ---
Certification for Inpatient Patient admitted to: Inpatient <Marcia Cunha - Last Filed: 11/20/23 07:45> Patient History Date of Service: 11/20/23 Reason for admission: COPD exacerbation History of Present Illness: 78-year-old female with a past medical history COPD; Diabetes - NIDDM; Hypertension; Major depressive disorder; Anxiety; Irritable mt4 bowel syndrome; Osteoarthritis; Sleep apnea; High Cholesterol presents from the halfway with shortness of breath. She reports history of COPD, she reports shortness of breath has been going on all day, she reports normally on 4 L of O2. On arrival to the ER at 88%. Treated with Solu-Medrol. No reported chest pain, abdominal pain plan to admit for COPD exacerbation acute hypoxia, pulmonary to consult - Past Medical/Surgical History Diabetic: Yes -: Hypertension -: Hyperlipidemia -: COPD-with home O2 -: Diabetes mellitus type 2 -: tonsilectomy -: R leg plates/pin -: dilation and curettage Psychosocial/ Personal History: patient lives at home with her daughter - Family History Mother -: Lung disease Father -: Diabetes - Social History Alcohol use: No CD- Drugs: No Caffeine use: No <Marcia Cunha - Last Filed: 11/20/23 07:45> Date of Service: 11/22/23 <Tawanda Velez - Last Filed: 11/22/23 12:00> Allergies No Known Allergies Allergy (Unverified 05/23/21 06:12) Home Medications: Allopurinol 300 mg PO DAILY AT SUPPER 09/17/23 Aspirin [Vazalore] 81 mg PO DAILY 09/17/23 Buspirone HCl [Buspar] 10 mg PO TID 09/17/23 Calcium Carbonate [Calcium] 600 mg PO NOON 09/17/23 Cetirizine HCl [Zyrtec*] 10 mg PO DAILY 09/17/23 Cholecalciferol (Vitamin D3) [Vitamin D3] 1,000 units PO NOON 09/17/23 Doxazosin Mesylate 4 mg PO BID 09/17/23 Escitalopram [Lexapro*] 10 mg PO DAILY 09/17/23 Gabapentin [Neurontin*] 300 mg PO BID 09/17/23 Hydralazine HCl 50 mg PO BID 09/17/23 Insulin Glargine,Hum.rec.anlog [Lantus] 10 units SQ DAILY 09/17/23 Magnesium Oxide [Magnesium] 400 mg PO NOON 09/17/23 Montelukast [Singulair*] 10 mg PO DAILY 09/17/23 Nebivolol HCl [Bystolic*] 10 mg PO DAILY 09/17/23 [place]-3 Acid Ethyl Esters 1 cap PO NOON 09/17/23 Omeprazole 20 mg PO BID 09/17/23 Pediatric Multivit No.203/Iron [Flintstones with Iron Tab Chew] 1 tab PO NOON 09/17/23 Turmeric Root Extract [Turmeric Curcumin] 500 mg PO NOON 09/17/23 Calcium Carbonate [Oscal*] 500 mg PO NOON tab 11/22/23 Cetirizine HCl [Zyrtec*] 10 mg PO DAILY #0 11/22/23 Furosemide [Lasix] 20 mg PO DAILY 30 Days #30 tab 11/22/23 Losartan Potassium [Cozaar*] 50 mg PO BID 11/22/23 Nebivolol HCl [Bystolic*] 10 mg PO DAILY tab 11/22/23 Spironolactone [Aldactone*] 25 mg PO DAILY 30 Days #30 tab 11/22/23 cloNIDine HCL [Catapres*] 0.1 mg PO BID PRN 30 Days #60 tab 11/22/23 Review of Systems Per HPI <Marcia Cunha - Last Filed: 11/20/23 07:45> Physical Examination - Physical Exam General: Alert, In no apparent distress, Oriented x3, Other (Hard of hearing, hearing aid) HEENT: Atraumatic, Normocephalic Neck: Supple, JVD not distended Respiratory: Expiratory wheezes, Inspiratory wheezes Cardiovascular: Normal pulses, Regular rate/rhythm Gastrointestinal: Normal bowel sounds, Soft and benign Musculoskeletal: No swelling, No contractures Integumentary: No breakdown, No significant lesion Neurological: Normal speech, Normal strength at 5/5 x4 extr - Studies Laboratory Data (last 24 hrs) 11/19/23 11/19/23 11/19/23 23:03 22:15 22:15 WBC 9.50 Hgb 11.2 L Hct 34.7 L Plt Count 175 PT 12.2 INR 1.09 APTT 30.2 Sodium 139 Potassium 3.5 BUN 21 H Creatinine 1.23 H Glucose 254 H Total Bilirubin 0.5 AST 13 L ALT 19 Alkaline Phosphatase 76 Microbiology Data (last 24 hrs): 11/19/23 22:15 Nasopharnyx Influenza Type A Antigen Screen - Final 11/19/23 22:15 Nasopharnyx Influenza Type B Antigen Screen - Final <Marcia Cunha - Last Filed: 11/20/23 07:45> - Studies Microbiology Data (last 24 hrs): 11/19/23 22:30 Blood - Blood Blood Culture Gram Stain - Final 11/19/23 22:30 Blood - Blood Gram Stain - Final <Tawanda Velez C - Last Filed: 11/22/23 12:00> Assessment and Plan - Problems (Diagnosis) (1) Acute hypoxic respiratory failure Current Visit: Yes Status: Acute (2) COPD exacerbation Current Visit: Yes Status: Acute (3) Non-insulin dependent type 2 diabetes mellitus Current Visit: Yes Status: Chronic (4) On home O2 Current Visit: Yes Status: Chronic (5) Microcytic anemia Current Visit: Yes Status: Chronic (6) Hypertensive urgency Current Visit: Yes Status: Acute (7) Heart failure Current Visit: Yes Status: Acute Qualifiers: Heart failure chronicity: acute - Plan Admit to MedSurg Pulmonary consult As needed nebs, resume home meds, steroid O2 2 L keep sats greater than 92% Telemetry, as needed antihypertensives Elevated BNP, gentle diuretic Daily weight Echo, diuresis Discharge Plan: Retirement - Advance Directives Does patient have a Living Will: No Does patient have a Durable POA for Healthcare: No - Code Status/Comfort Care Code Status: Full Code Critical Care: No Time Spent Managing Pts Care (In Minutes): 55 <Marcia Cunha - Last Filed: 11/20/23 07:45> - Plan Pt ginette nd examined. I agree with the note by the POLYMERIZATION HELPER. Pt is a 78yo female with past medical history of COPD; Diabetes - NIDDM; Hypertension; Major depressive disorder; Anxiety; Irritable bowel syndrome; Osteoarthritis; Sleep apnea; HLD who presents with shortness of breath. Pt reports SOB with minimal exertion and she continued to use 4L BNC. On admission, CXR shows bilateral pleural effusion. On arrival to the ER, her oxygen saturation was 88%. At bedside, pt is in NAD. A/P: Acute resp failure with hypoxia 2/2 bilateral pleural effusion: Will continue oxygen, duoneb, lasix and steroid. Will order thoracentesis. Consulted Pulm. Continue home meds for other chronic medical problems. <Tawanda Velez - Last Filed: 11/22/23 12:00>
[2023-11-20 00:53] LABS: Troponin High Sensitivity 22.9 pg/mL (<58.9)
[2023-11-20 00:57] VITALS: BMI 35.6
[2023-11-20] MEDS: AZITHROMYCIN IV 500 MG in NA CHLORIDE 0.9% 250 ML IVPB SCH (03:16)
[2023-11-20] MEDS ORDERED: ALBUTEROL 2.5 MG/3 ML NEB SOL NEB PRN ×2 (03:40→07:31)
[2023-11-20] MEDS ORDERED: ONDANSETRON 4 MG/2 ML VIAL IV PRN (03:40)
[2023-11-20] MEDS ORDERED: IPRATROPIUM BROM 0.5MG/2.5ML NEB PRN (03:40)
[2023-11-20] MEDS: METHYLPREDNISOLONE 125 MG INJ IV SCH (04:41)
[2023-11-20] MEDS: INSULIN REGULAR (HUMAN) 100 UNIT/ML SQ SCH (04:42)
[2023-11-20 05:14] LABS: Absolute Lymphocytes (CBC) 0.5 K/uL (0.7-4.9); Absolute Neutrophil 7.4 K/uL (1.8-8.0); Basophils % 0.3 % (0-1.3); Hematocrit 35.8 % (36.0-45.0); Hemoglobin 11.2 g/dL (12.0-15.0); Lymphocytes % 6.2 % (15.3-44.8); MCHC 31.4 g/dL (32.0-36.0); MCV 95.6 fL (80-100); MPV 10.5 fL (7.6-11.3); Monocytes % 0.6 % (3.3-12.3); Neutrophils % 92.9 % (41.7-73.7); Platelets 163 thou/uL (152-406); RBC Red Blood Cell Count 3.74 M/uL (3.86-4.86); Red Cell Distribution Width 15.2 % (12.1-15.2)
[2023-11-20 05:35] LABS: Band Neutrophils 16 % (0-1); Differential Total Cells Count 100; Lymphocytes 9 % (15-42); Monocytes 0 % (0-10); Segmented Neutrophils 75 % (40-80)
[2023-11-20 05:36] LABS: Blood Morphology Comment NOT SEEN (NOT SEEN); Platelet Estimate ADEQ
[2023-11-20 05:37] LABS: Anion Gap 8.8 mEq/L (5.0-15.0); Magnesium 1.9 mg/dL (1.6-2.4); Potassium 3.8 mEq/L (3.5-5.1); Troponin High Sensitivity 20.9 pg/mL (<58.9)
[2023-11-20] MEDS: POTASSIUM 25 MEQ EFFERV TAB PO ONE (08:17)
[2023-11-20] MEDS: HYDRALAZINE HCL 20 MG/ML VIAL IV PRN (08:19)
[2023-11-20] MEDS: FUROSEMIDE 40 MG/4 ML VIAL IV SCH (08:19)
[2023-11-20] MEDS: NEBIVOLOL HCL 5 MG TAB PO SCH (10:51)
[2023-11-20] MEDS: INSULIN GLARGINE 100 UNIT/ML SQ SCH (10:52)
[2023-11-20] MEDS: BUSPIRONE HCL 5 MG TABLET PO SCH (10:52)
[2023-11-20] MEDS: ESCITALOPRAM 20 MG TAB PO SCH (10:52)
[2023-11-20] MEDS: ASPIRIN EC 81 MG TAB PO SCH (10:52)
[2023-11-20] MEDS: LOSARTAN POTASSIUM 50 MG TABLET PO SCH (10:52)
[2023-11-20] MEDS: HYDRALAZINE HCL 25 MG TABLET PO SCH (10:52)
[2023-11-20] MEDS: GABAPENTIN 300 MG CAP PO SCH (10:52)
[2023-11-20] MEDS: PANTOPRAZOLE 40MG TABLET PO SCH (10:52)
[2023-11-20] MEDS: DOXAZOSIN 4 MG TAB PO SCH (10:54)
[2023-11-20] MEDS ORDERED: NEBIVOLOL HCL 20 MG TABLET PO SCH (11:00)
[2023-11-20] MEDS: ACETAMINOPHEN 500 MG TAB PO PRN (11:24)
[2023-11-20] MEDS: MAGNESIUM OXIDE 400 MG TAB PO SCH (11:47)
[2023-11-20] MEDS: CALCIUM CARBONATE 500 MG TAB PO SCH (11:47)
--- NOTE | 2023-11-20 11:49 | P.PN ---
Subjective Date of Service: 11/20/23 Chief Complaint: COPD exacerbation Pt is resting comfortably in bed. She is using 2L BNC. No exp wheezing. Waitingf or Pulm evaluation. Pt is getting steroid and breathing treatment. No other complaints. Review of Systems General: Unremarkable Eyes: Unremarkable ENT: Unremarkable Respiratory: SOB with Excertion Cardiovascular: Unremarkable Gastrointestinal: Unremarkable Genitourinary: Unremarkable Musculoskeletal: Unremarkable Integumentary: Unremarkable Neurological: Unremarkable Lymphatics: Unremarkable Physical Examination - Vital Signs Temperature: 98.7 F Blood Pressure: 175/76 Pulse: 75 Respirations: 20 Pulse Ox (%): 93 - Physical Exam General: Alert, In no apparent distress, Oriented x3 HEENT: Atraumatic, Normocephalic, PERRLA Neck: Supple, 2+ carotid pulse no bruit, JVD not distended Respiratory: Clear to auscultation bilaterally, Normal air movement Cardiovascular: No edema, Normal pulses, Regular rate/rhythm, Normal S1 S2 Capillary refill: <2 Seconds Gastrointestinal: Normal bowel sounds, Soft and benign, Non-distended Musculoskeletal: No clubbing, No swelling, No contractures Integumentary: No rashes, No breakdown, No significant lesion Neurological: Normal gait, Normal speech, Normal strength at 5/5 x4 extr Lymphatics: No axilla or inguinal lymphadenopathy - Studies Laboratory Data (last 24 hrs) 11/19/23 11/19/23 11/19/23 23:03 22:15 22:15 WBC 9.50 Hgb 11.2 L Hct 34.7 L Plt Count 175 PT 12.2 INR 1.09 APTT 30.2 Sodium 139 Potassium 3.5 BUN 21 H Creatinine 1.23 H Glucose 254 H Total Bilirubin 0.5 AST 13 L ALT 19 Alkaline Phosphatase 76 Microbiology Data (last 24 hrs): 11/19/23 22:15 Nasopharnyx Influenza Type A Antigen Screen - Final 11/19/23 22:15 Nasopharnyx Influenza Type B Antigen Screen - Final Assessment And Plan - Plan Acute COPD exacerbation: Will continue prednisone 20mg po BID, rocephin, 2l BNC and prn duoneb. Consulted Pulm. Acute resp failure with hypoxia: Due to COPD exacerbation. Will continue treatment listed above. Htn: will resume home meds. DM II: Continue accuchek, SSI, lantus 20u daily and ADA diet. Hx of Heart failure: BNP Is elevated. Will continue lasix, strict I/O and daily weight. Will f/u Echo. Anemia: Hgb is 11.2. Will monitor H/H. DVT ppx: SCD Code: full. Dispo: Pending hospital course.
[2023-11-20] MEDS ORDERED: HOME MED 1 EA UNK (Magnesium Oxide [Magnesium] 400 MG Tablet) PO SCH (12:00)
[2023-11-20] MEDS ORDERED: HOME MED 1 EA UNK (Calcium Carbonate [Calcium] 600 MG Tablet) PO SCH (12:00)
--- NOTE | 2023-11-20 12:48 | EKG ---
Test Date: 2023-11-19 Test Time: 22:04:39 Sales Recruiter: VIKKI MEASUREMENT RESULTS: Intervals: Rate: 75 WI: 204 QRSD: 100 QT: 428 QTc: 477 Jacobson: P: 84 WI: 204 QRS: -41 T: 101 INTERPRETIVE STATEMENTS: Normal sinus rhythm with sinus arrhythmia Left axis deviation Anteroseptal infarct, age undetermined Abnormal ECG Compared to ECG 09/06/2023 18:25:27 Left-axis deviation now present Ventricular premature complex(es) no longer present First degree AV block no longer present Myocardial infarct finding still present Electronically Signed On 11-20-23 12:46:49 CDT by Jay Carey
[2023-11-20] MEDS ORDERED: HOME MED 1 EA UNK (Buspirone Hcl [Buspar] 10 MG Tablet) PO SCH (14:00)
--- NOTE | 2023-11-20 15:00 | RAD REPORT ---
EXAM DESCRIPTION: Chest Single View CLINICAL HISTORY:78 years Female, DYSPNEA Comparison: Chest radiograph dated 09/23/2023 IMPRESSION: No focal lung consolidation. No pleural effusion. No pneumothorax. Cardiomegaly. Vascular congestion and interstitial edema. No acute osseous abnormality. Electronically signed by: Ameya Argueta DO 11/19/2023 11:14 PM CDT RP Transcribed Date/Time: 11/20/2023 2:59 PM
--- NOTE | 2023-11-20 15:42 | RAD REPORT ---
Procedure: Chest Pa And Lat (2 Views) History: Shortness of breath Comparison: November 19, 2023 Moderate to large left pleural effusion Mild left basilar atelectasis Right lung probably clear of acute infiltrate. Heart is moderately enlarged IMPRESSION: Moderate to large left pleural effusion
--- NOTE | 2023-11-20 16:10 | P.CNS ---
Date of Consult: 11/20/23 Reason for Consult: Shortness of breath Chief Complaint: Shortness of breath History of Present Illness: Patient is 78 years of age admitted with acute onset of shortness of breath no prior history of any cardiopulmonary disease history of presumed COPD denies smoking history a lot better chest x-ray showed cardiomegaly possibly volume overload does not appear that patient is taking any bronchodilators feeling a lot better Allergies No Known Allergies Allergy (Unverified 05/23/21 06:12) Home Medications: Allopurinol 300 mg PO DAILY AT SUPPER 09/17/23 Aspirin [Vazalore] 81 mg PO DAILY 09/17/23 Buspirone HCl [Buspar] 10 mg PO TID 09/17/23 Calcium Carbonate [Calcium] 600 mg PO NOON 09/17/23 Cetirizine HCl [Zyrtec*] 10 mg PO DAILY 09/17/23 Cholecalciferol (Vitamin D3) [Vitamin D3] 1,000 units PO NOON 09/17/23 Doxazosin Mesylate 4 mg PO BID 09/17/23 Escitalopram [Lexapro*] 10 mg PO DAILY 09/17/23 Gabapentin [Neurontin*] 300 mg PO BID 09/17/23 Hydralazine HCl 50 mg PO BID 09/17/23 Insulin Glargine,Hum.rec.anlog [Lantus] 10 units SQ DAILY 09/17/23 Losartan Potassium [Cozaar*] 50 mg PO BID 09/17/23 Magnesium Oxide [Magnesium] 400 mg PO NOON 09/17/23 Montelukast [Singulair*] 10 mg PO DAILY 09/17/23 Nebivolol HCl [Bystolic*] 10 mg PO DAILY 09/17/23 [place]-3 Acid Ethyl Esters 1 cap PO NOON 09/17/23 Omeprazole 20 mg PO BID 09/17/23 Pediatric Multivit No.203/Iron [Flintstones with Iron Tab Chew] 1 tab PO NOON 09/17/23 Turmeric Root Extract [Turmeric Curcumin] 500 mg PO NOON 09/17/23 - Past Medical/Surgical History Diabetic: Yes -: Hypertension -: Hyperlipidemia -: COPD-with home O2 -: Diabetes mellitus type 2 -: tonsilectomy -: R leg plates/pin -: dilation and curettage Psychosocial/ Personal History: patient lives at home with her daughter - Family History Mother Medical History: Lung disease Father Medical History: Diabetes - Social History Smoking Status: Unknown if ever smoked Alcohol use: No CD- Drugs: No Caffeine use: No Place of Residence: [facility] Review of Systems 10-point ROS is otherwise unremarkable General: Weakness Respiratory: Shortness of Breath Physical Examination Temp Pulse Resp BP Pulse Ox 98.2 F 75 22 H 196/94 H 94 11/20/23 12:00 11/20/23 12:00 11/20/23 12:00 11/20/23 12:00 11/20/23 12:00 General: Alert, Oriented x3 Respiratory: Clear to auscultation bilaterally Cardiovascular: No edema, Normal pulses, Regular rate/rhythm Gastrointestinal: Normal bowel sounds, Soft and benign Laboratory Data (last 24 hrs) 11/19/23 11/19/23 11/19/23 23:03 22:15 22:15 WBC 9.50 Hgb 11.2 L Hct 34.7 L Plt Count 175 PT 12.2 INR 1.09 APTT 30.2 Sodium 139 Potassium 3.5 BUN 21 H Creatinine 1.23 H Glucose 254 H Total Bilirubin 0.5 AST 13 L ALT 19 Alkaline Phosphatase 76 - Problems (1) Pleural effusion Current Visit: Yes Status: Acute Plan: Patient is 78 years of age admitted with acute onset of shortness of breath she has a very large pleural effusion on the left side doubt COPD DC steroids antibiotics renal function is abnormal commend thoracentesis echocardiogram is pending continue with Lasix blood pressure is elevated add low-dose spironolactone
[2023-11-20] MEDS: SPIRONOLACTONE 25 MG TABLET PO SCH (16:28)
[2023-11-20] MEDS: allopurinoL 300 MG TAB PO SCH (16:29)
--- NOTE | 2023-11-20 19:26 | RAD REPORT ---
EXAMINATION: Chest Lateral Decubitus CLINICAL INDICATION: Female, 78 years old. [facility] Bilateral Left effusion TECHNIQUE: 2 view decubitus radiographs of the chest were performed. COMPARISON: No prior exam. FINDINGS: Decubitus views of the chest demonstrate layering of the known left pleural effusion. No evidence of loculation. IMPRESSION: Layering moderate left pleural effusion. No evidence of loculation.
--- NOTE | 2023-11-20 19:52 | RAD REPORT ---
EXAMINATION: Chest CLINICAL INDICATION: [facility] left pleural effusion poss thoracentesis COMPARISON: Chest radiograph earlier the same day. TECHNIQUE: Sonographic grayscale and color flow imaging of the chest. FINDINGS: Left lung: Moderate pleural effusion this region was marked for eventual thoracentesis. Mild floatin g debris. No evidence of loculation on ultrasound. IMPRESSION: 1. Moderate left pleural effusion.
[2023-11-20] MEDS ORDERED: HOME MED 1 EA UNK (Omeprazole [Omeprazole] 20 MG Capsule.Dr) PO SCH (21:00)
[2023-11-20] MEDS ORDERED: predniSONE 20 MG TAB PO SCH (21:00)
[2023-11-20] MEDS ORDERED: DOXAZOSIN 4 MG TAB PO SCH (21:00)
[2023-11-20] MEDS ORDERED: LOSARTAN POTASSIUM 50 MG TABLET PO SCH (21:00)
[2023-11-20] MEDS ORDERED: CEFTRIAXONE 1,000 MG in NA CHLORIDE 0.9% 50 ML IVPB SCH (21:00)
[2023-11-20] MEDS: Meropenem 1,000 MG in NA CHLORIDE 0.9% 100 ML IV SCH (21:08)
[2023-11-20] MEDS ORDERED: HYDRALAZINE HCL 20 MG/ML VIAL IV PRN (21:14)
[2023-11-21 06:32] LABS: Absolute Lymphocytes (CBC) 1.7 K/uL (0.7-4.9); Absolute Monocytes 0.7 K/uL (0.1-1.3); Absolute Neutrophil 10.6 K/uL (1.8-8.0); Basophils % 0.4 % (0-1.3); Eosinophils % 0.2 % (0-4.4); Hematocrit 34.1 % (36.0-45.0); MCH 30.3 pg (27.0-35.0); MCHC 32.4 g/dL (32.0-36.0); MCV 93.7 fL (80-100); MPV 10.4 fL (7.6-11.3); Monocytes % 5.1 % (3.3-12.3); Neutrophils % 81.3 % (41.7-73.7); Nucleated Red Blood Cells % 0.1 % (0-0); Platelets 209 thou/uL (152-406); RBC Red Blood Cell Count 3.63 M/uL (3.86-4.86); Red Cell Distribution Width 15.4 % (12.1-15.2)
[2023-11-21 07:00] LABS: Anion Gap 5.6 mEq/L (5.0-15.0); Magnesium 1.8 mg/dL (1.6-2.4); Potassium 3.6 mEq/L (3.5-5.1); Troponin High Sensitivity 23.6 pg/mL (<58.9)
--- NOTE | 2023-11-21 08:26 | P.DS ---
Admission Date: 11/20/23 Discharge Date: 11/22/23 Reason for Admission: Shortness of breath Brief History of Present Illness: 78-year-old female with a past medical history COPD; Diabetes - NIDDM; Hypertension; Major depressive disorder; Anxiety; Irritable mt4 bowel syndrome; Osteoarthritis; Sleep apnea; High Cholesterol presents from the custodial with shortness of breath. She reports history of COPD, she reports shortness of breath has been going on all day, she reports normally on 4 L of O2. On arrival to the ER at 88%. Treated with Solu-Medrol. No reported chest pain, abdominal pain plan to admit for COPD exacerbation acute hypoxia, pulmonary to consult - Physical Exam General: Alert, In no apparent distress, Oriented x3, Other (Hard of hearing, hearing aid) HEENT: Atraumatic, Normocephalic Neck: Supple, JVD not distended Respiratory: Dyspnea with exertion, unlabored, Cardiovascular: Normal pulses, Regular rate/rhythm Gastrointestinal: Normal bowel sounds, Soft and benign Musculoskeletal: No swelling, No contractures Integumentary: No breakdown, No significant lesion Neurological: Normal speech, Normal strength at 5/5 x4 extr Hospital Course: 78-year-old female with a past medical history COPD; Diabetes - NIDDM; Hypertension; Major depressive disorder; Anxiety; Irritable mt4 bowel syndrome; Osteoarthritis; Sleep apnea; High Cholesterol presents from the custodial with shortness of breath. She reports history of COPD, she reports shortness of breath has been going on all day, she reports normally on 4 L of O2. On arrival to the ER at 88%. She was treated with COPD exacerbation, evaluated by pulmonology. Discharge medication Hold Bystolic if heart rate less than 60 Spironolactone 25 mg p.o. daily Lasix 20 mg p.o. daily Daily weight Clonidine 0.1 mg 1 p.o. twice daily for systolic blood pressure greater than 160 Assessment Acute hypoxic respiratory failure secondary to COPD exacerbationheart failure improved Pleural effusion status post-thoracentesis by interventional radiology-improved Treated with oxygen, steroids, gentle diuretics for heart failure Diabetes type 2 [id number], resume home diabetes Hypertensive urgency, DC home on antihypertensive,improved started on clonidine 0.1 mg po bid prn systolic >160 Imaging IMPRESSION: Moderate to large left pleural effusion-treated with diuretic-thoracentesis ordered Renal ultrasound IMPRESSION: No evidence of hydronephrosis. Small left renal cortical cyst. Echo ordered Continue home medicines as previously prescribed GOAL: Clear understanding of disease process INSTRUCTIONS: Physician Discharge Instructions: follow up with cardiology after discharge -Follow-up with PCP in 1 to 2 weeks -Please call Dr. Wilhelm at [phone] if any questions regarding hospital stay -Please call nursing station at [phone] if any nursing or medication questions -Return to the emergency room if symptoms worsen Diet: ADA, low sodium Activity: Fall precautions <Marcia Cunha - Last Filed: 11/23/23 05:12> Admission Date: 11/20/23 Discharge Date: 11/22/23 Hospital Course: Patient was seen and examined. Events of the last 24 hours have been noted. Spoke with with ZIGGY regarding patient's clinical picture after evaluating and examining the patient independently. I performed a substantial part of the MDM during this patient's care today. I personally made or approved the documented management plan and acknowledge its risk of complications. I agree with the findings and documentation provided in the ZIGGY's notes. Patient has done well during hospital stay. Patient is clinically doing much better. Patient's respiratory status has improved. Patient is stable for discharge home. <Esther Wilhelm - Last Filed: 12/10/23 00:15> Disposition: TRANSFER TO GROUP HOME Discharge Condition: GOOD Vital Signs/Physical Exam: Temp Pulse Resp BP Pulse Ox 97.0 F 67 18 195/86 H 93 11/21/23 04:00 11/21/23 04:00 11/21/23 04:00 11/21/23 04:00 11/21/23 04:00 Laboratory Data at Discharge: WBC 13.00 thou/uL (4.3-10.9) H 11/21/23 06:18 Hgb 11.0 g/dL (12.0-15.0) L 11/21/23 06:18 Hct 34.1 % (36.0-45.0) L 11/21/23 06:18 Plt Count 209 thou/uL (152-406) D 11/21/23 06:18 PT 12.2 SECONDS (9.4-12.5) 11/19/23 23:03 INR 1.09 11/19/23 23:03 APTT 30.2 SECONDS (24.3-36.9) 11/19/23 23:03 Sodium 139 mEq/L (136-145) 11/21/23 06:18 Potassium 3.6 mEq/L (3.5-5.1) 11/21/23 06:18 BUN 30 mg/dL (7-18) H 11/21/23 06:18 Creatinine 1.38 mg/dL (0.55-1.02) H 11/21/23 06:18 Glucose 186 mg/dL (74-106) H 11/21/23 06:18 Phosphorus 3.4 mg/dL (2.5-4.9) 11/21/23 06:18 Magnesium 1.8 mg/dL (1.6-2.4) 11/21/23 06:18 Total Bilirubin 0.5 mg/dL (0.2-1.0) 11/19/23 22:15 AST 13 U/L (15-37) L 11/19/23 22:15 ALT 19 U/L (13-56) 11/19/23 22:15 Alkaline Phosphatase 76 U/L (45-117) 11/19/23 22:15 <Marcia Cunha - Last Filed: 11/23/23 05:12> Vital Signs/Physical Exam: Temp Pulse Resp BP Pulse Ox 98.0 F 59 18 135/63 93 11/22/23 12:00 11/22/23 12:00 11/22/23 12:00 11/22/23 12:00 11/22/23 12:00 Laboratory Data at Discharge: WBC 9.00 thou/uL (4.3-10.9) 11/22/23 09:24 Hgb 11.7 g/dL (12.0-15.0) L 11/22/23 09:24 Hct 37.3 % (36.0-45.0) 11/22/23 09:24 Plt Count 186 thou/uL (152-406) 11/22/23 09:24 PT 12.2 SECONDS (9.4-12.5) 11/19/23 23:03 INR 1.09 11/19/23 23:03 APTT 30.2 SECONDS (24.3-36.9) 11/19/23 23:03 Sodium 139 mEq/L (136-145) 11/21/23 06:18 Potassium 3.6 mEq/L (3.5-5.1) 11/21/23 06:18 BUN 30 mg/dL (7-18) H 11/21/23 06:18 Creatinine 1.38 mg/dL (0.55-1.02) H 11/21/23 06:18 Glucose 186 mg/dL (74-106) H 11/21/23 06:18 Phosphorus 3.4 mg/dL (2.5-4.9) 11/21/23 06:18 Magnesium 1.8 mg/dL (1.6-2.4) 11/21/23 06:18 Total Bilirubin 0.5 mg/dL (0.2-1.0) 11/19/23 22:15 AST 13 U/L (15-37) L 11/19/23 22:15 ALT 19 U/L (13-56) 11/19/23 22:15 Alkaline Phosphatase 76 U/L (45-117) 11/19/23 22:15 <Esther Wilhelm - Last Filed: 12/10/23 00:15> Time spent managing pt's care (in minutes): 55 <Marcia Cunha - Last Filed: 11/23/23 05:12> <Esther Wilhelm - Last Filed: 12/10/23 00:15> Home Medications: Allopurinol 300 mg PO DAILY AT SUPPER 09/17/23 Aspirin [[place]] 81 mg PO DAILY 09/17/23 Buspirone HCl [Buspar] 10 mg PO TID 09/17/23 Calcium Carbonate [Calcium] 600 mg PO NOON 09/17/23 Cetirizine HCl [Zyrtec*] 10 mg PO DAILY 09/17/23 Cholecalciferol (Vitamin D3) [Vitamin D3] 1,000 units PO NOON 09/17/23 Doxazosin Mesylate 4 mg PO BID 09/17/23 Escitalopram [Lexapro*] 10 mg PO DAILY 09/17/23 Gabapentin [Neurontin*] 300 mg PO BID 09/17/23 Hydralazine HCl 50 mg PO BID 09/17/23 Insulin Glargine,Hum.rec.anlog [Lantus] 10 units SQ DAILY 09/17/23 Magnesium Oxide [Magnesium] 400 mg PO NOON 09/17/23 Montelukast [Singulair*] 10 mg PO DAILY 09/17/23 Nebivolol HCl [Bystolic*] 10 mg PO DAILY 09/17/23 [place]-3 Acid Ethyl Esters 1 cap PO NOON 09/17/23 Omeprazole 20 mg PO BID 09/17/23 Pediatric Multivit No.203/Iron [Flintstones with Iron Tab Chew] 1 tab PO NOON 09/17/23 Turmeric Root Extract [Turmeric Curcumin] 500 mg PO NOON 09/17/23 Calcium Carbonate [Oscal*] 500 mg PO NOON tab 11/22/23 Cetirizine HCl [Zyrtec*] 10 mg PO DAILY #0 11/22/23 Furosemide [Lasix] 20 mg PO DAILY 30 Days #30 tab 11/22/23 Losartan Potassium [Cozaar*] 50 mg PO BID 11/22/23 Nebivolol HCl [Bystolic*] 10 mg PO DAILY tab 11/22/23 Spironolactone [Aldactone*] 25 mg PO DAILY 30 Days #30 tab 11/22/23 cloNIDine HCL [Catapres*] 0.1 mg PO BID PRN 30 Days #60 tab 11/22/23 New Medications: Spironolactone [Aldactone*] 25 mg PO DAILY 30 Days #30 tab cloNIDine HCL [Catapres*] 0.1 mg PO BID PRN 30 Days #60 tab PRN Reason: Goal To Achieve Sbp In Comment Furosemide [Lasix] 20 mg PO DAILY 30 Days #30 tab Physician Discharge Instructions: 78-year-old female with a past medical history COPD; Diabetes - NIDDM; Hypertension; Major depressive disorder; Anxiety; Irritable mt4 bowel syndrome; Osteoarthritis; Sleep apnea; High Cholesterol presents from the custodial with shortness of breath. She reports history of COPD, she reports shortness of breath has been going on all day, she reports normally on 4 L of O2. On arrival to the ER at 88%. She was treated with COPD exacerbation, evaluated by pulmonology. Discharge medication Hold Bystolic if heart rate less than 60 Spironolactone 25 mg p.o. daily Lasix 20 mg p.o. daily Daily weight Clonidine 0.1 mg 1 p.o. twice daily for systolic blood pressure greater than 160 Assessment Hypertensive urgency-as needed clonidine added Acute heart failure, diuretics added pleural effusion-chest ultrasound patient does not have a pleural effusion fluid for thoracentesis COPD continue nebs as needed Pleural effusion status post-thoracentesis by interventional radiology Treated with oxygen, steroids, gentle diuretics for heart failure Diabetes type 2 [id number], resume home diabetes Hypertensive urgency, DC home on antihypertensive, Imaging IMPRESSION: Moderate to large left pleural effusion-treated with diuretic-thoracentesis ordered Renal ultrasound IMPRESSION: No evidence of hydronephrosis. Small left renal cortical cyst. Continue home medicines as previously prescribed GOAL: Clear understanding of disease process INSTRUCTIONS: Physician Discharge Instructions: -Follow-up with PCP in 1 to 2 weeks -Please call Dr. Wilhelm at [phone] if any questions regarding hospital stay -Please call nursing station at [phone] if any nursing or medication questions -Return to the emergency room if symptoms worsen Diet: ADA, low sodium Activity: Fall precautions Followup: Cristina Pierce [Primary Care Provider] - 1-2 Weeks
[2023-11-21] MEDS ORDERED: HOME MED 1 EA UNK (Aspirin [Vazalore] 81 MG Capsule) PO SCH (09:00)
--- NOTE | 2023-11-21 09:05 | RAD REPORT ---
EXAMINATION: TWO VIEW CHEST XR CLINICAL INDICATION: Female, 78 years old. . [facility] MAIN Evaluate pleural effusion TECHNIQUE: 2 views of the chest was performed. COMPARISON: 11/20/2023, 11/19/2023 FINDINGS: Mild interstitial pulmonary edema. Small to moderate left pleural effusion. The heart is mildly enlar ged in size. No displaced fractures evident. IMPRESSION: Mild CHF is likely present. Small to moderate left pleural effusion.
[2023-11-21] MEDS: CETIRIZINE HCL 5 MG TABLET PO SCH (09:52)
[2023-11-21] MEDS: INSULIN GLARGINE 100 UNIT/ML SQ SCH (09:53)
--- NOTE | 2023-11-21 10:08 | ECHO ---
HEIGHT: 4 ft 11 in WEIGHT: 176 lb 12.8 oz DATE OF STUDY: 11/21/[address]: Chad Davis MD 2-DIMENSIONAL: YES M.MODE: YES DOPPLER: YES COLOR FLOW: YES TDS: PORTABLE: YES DEFINITY: BUBBLE STUDY: DIAGNOSIS: CONGESTIVE HEART FAILURE CARDIAC HISTORY: CATHERIZATION: SURGERY: PROSTHETIC VALVE: PACEMAKER: MEASUREMENTS (cm) DIASTOLIC (NORMALS) SYSTOLIC (NORMALS) IVSd 1.1 (0.6-1.2) LA Diam 2.6 (1.9-4.0) LVEF 60-65% LVIDd 3.6 (3.5-5.7) LVIDs 2.6 (2.0-3.5) %FS LVPWd 1.2 (0.6-1.2) Ao Diam 2.8 (2.0-3.7) 2 DIMENSIONAL ASSESSMENT: RIGHT ATRIUM: NORMAL LEFT ATRIUM: NORMAL RIGHT VENTRICLE: NORMAL LEFT VENTRICLE: MILD LEFT VENTRICULAR HYPERTROPHY TRICUSPID VALVE: NORMAL MITRAL VALVE: TRACE MITRAL REGURGITATION PULMONIC VALVE: NORMAL AORTIC VALVE: NORMAL PERICARDIAL EFFUSION: NONE AORTIC ROOT: NORMAL LEFT VENTRICULAR WALL MOTION: NORMAL DOPPLER/COLOR FLOW: DIASTOLIC DYSFUNCTION COMMENTS: 1. NORMAL LEFT VENTRICULAR SYSTOLIC FUNCTION, EJECTION FRACTION 60-65%, NORMAL WALL MOTION 2. DIASTOLIC DYSFUNCTION 3. MILD ELEVATED FILLING PRESSURE (RIGHT ATRIAL PRESSURE 5-10 mmHg) TECHNOLOGIST: VERO MARTÍNEZ
--- NOTE | 2023-11-21 10:36 | RAD REPORT ---
Examination: Limited chest ultrasound. Clinical history: Pleural fluid. COMPARISON: No prior chest radiograph is reviewed. Real-time sonography of the chest was performed as a means to assess for possible thoracentesis. There is a loculated and small to moderate left pleural effusion. Currently, insufficient quantity of fluid is present given the degree of loculation for thoracentesis at this time
[2023-11-21] MEDS: ARFORMOTEROL TARTRATE 15 MCG/2 ML VIAL.NEB NEB SCH (12:13)
[2023-11-21] MEDS: cloNIDine HCL 0.1 MG TAB PO SCH (13:23)
--- NOTE | 2023-11-22 08:40 | P.PN ---
Date of Service: 11/21/23 Subjective O2 at 1 L, no reported shortness of breath Review of Systems 10 point review of systems negative unless listed in HPI Physical Examination - Vital Signs Reviewed - Physical Exam General: Alert, In no apparent distress, Oriented x3, [place] HEENT: Atraumatic, Normocephalic, PERRLA Neck: Supple, 2+ carotid pulse no bruit, JVD not distended Respiratory: Clear to auscultation bilaterally, Normal air movement Cardiovascular: No edema, Normal pulses, Regular rate/rhythm, Normal S1 S2 Capillary refill: <2 Seconds Gastrointestinal: Normal bowel sounds, Soft and benign, Non-distended Musculoskeletal: No clubbing, No swelling, No contractures Integumentary: No rashes, No breakdown, No significant lesion Neurological: Normal gait, Normal speech, Normal strength at 5/5 x4 extr Lymphatics: No axilla or inguinal lymphadenopathy Assessment And Plan - Plan Acute resp failure with hypoxia secondary to COPD exacerbation Left-sided pleural effusion Will continue prednisone 20mg po BID, rocephin, 2l BNC and prn duoneb. Consulted Pulm. To eval for thoracentesis, Lasix Chest ultrasound insufficient quantity of fluid for thoracentesis at this time Hypertensive urgency Acute on chronic heart failure Hx of Heart failure: Cardiomegaly BNP Is elevated. Will continue lasix, strict I/O and daily weight. Will f/u Echo. 7433, 5323 improving O2 at 1 L echo done, Htn: will resume home meds. DM II: Continue accuchek, SSI, lantus 20u daily and ADA diet. Microcytic anemia: Hgb is 11.2. Will monitor H/H. DVT ppx: SCD Code: full. Dispo: Pending hospital course. <Marcia Cunha - Last Filed: 11/23/23 05:15> Patient was seen and examined. Events of the last 24 hours have been noted. Spoke with with ZIGGY regarding patient's clinical picture after evaluating and examining the patient independently. I performed a substantial part of the MDM during this patient's care today. I personally made or approved the documented management plan and acknowledge its risk of complications. I agree with the findings and documentation provided in the ZIGGY's notes. Respiratory status has improved. Clinically doing much better and change to oral medications and anticipate discharge home in the morning. <Esther Wilhelm - Last Filed: 12/10/23 00:12>
[2023-11-22] MEDS ORDERED: SPIRONOLACTONE 25 MG TABLET PO SCH (09:00)
[2023-11-22] MEDS: HYDRALAZINE HCL 20 MG/ML VIAL IV ONE (09:00)
[2023-11-22 09:31] LABS: Hematocrit 37.3 % (36.0-45.0); Hemoglobin 11.7 g/dL (12.0-15.0); MCH 29.7 pg (27.0-35.0); MCHC 31.4 g/dL (32.0-36.0); MCV 94.6 fL (80-100); MPV 10.6 fL (7.6-11.3); Platelets 186 thou/uL (152-406); RBC Red Blood Cell Count 3.94 M/uL (3.86-4.86); Red Cell Distribution Width 15.7 % (12.1-15.2)
[2023-11-22 14:44] VITALS: BP 135/63; TEMP 98
[2023-11-22 18:52] VITALS: O2SAT 92
== END 2023-11-22 14:28 | DRG 189 ==
LOC: ER 21:52 → 2ND 23:40 → OBSVTOIN 11-20 18:16
PROVIDERS: ADMIT Hospitalist; ATTEND Hospitalist
DX: J96.01 Acute respiratory failure with hypoxia (principal); I50.31 Acute diastolic (congestive) heart failure; I11.0 Hypertensive heart disease with heart failure; I16.0 Hypertensive urgency; E11.9 Type 2 diabetes mellitus without complications; E78.00 Pure hypercholesterolemia, unspecified; M19.90 Unspecified osteoarthritis, unspecified site; H91.90 Unspecified hearing loss, unspecified ear; D50.9 Iron deficiency anemia, unspecified; F32.9 Major depressive disorder, single episode, unspecified; F41.9 Anxiety disorder, unspecified; J44.9 Chronic obstructive pulmonary disease, unspecified; D64.9 Anemia, unspecified; Z79.4 Long term (current) use of insulin; Z97.4 Presence of external hearing-aid; Z79.82 Long term (current) use of aspirin; Z11.52 Encounter for screening for COVID-19; Z99.81 Dependence on supplemental oxygen; Z79.899 Other long term (current) drug therapy
CPT/HCPCS: 36415; 71045; 71046; 76604; 80048; 80053; 82947; 83605; 83735; 83880; 84100; 84484; 85025; 85027; 85610; 85730; 87040; 87077; 87186; 87205; 87804; 87811; 93005; 93306; 94640; 94760; 96365; 99285; G0378; J0360; J0696; J1940; J2185; J2919; J3475; J7050; J7605; J7613

== ENCOUNTER 2023-12-21 11:16 | Observation (INO) | payer OTHER ==
[2023-12-21 12:29] LABS: Absolute Eosinophils 0.2 K/uL (0-0.5); Absolute Lymphocytes (CBC) 1.1 K/uL (0.7-4.9); Absolute Monocytes 0.5 K/uL (0.1-1.3); Absolute Neutrophil 7.4 K/uL (1.8-8.0); Basophils % 0.5 % (0-1.3); Eosinophils % 1.8 % (0-4.4); Hematocrit 35.7 % (36.0-45.0); Hemoglobin 11.7 g/dL (12.0-15.0); MCH 30.3 pg (27.0-35.0); MCHC 32.6 g/dL (32.0-36.0); MCV 92.8 fL (80-100); MPV 10.5 fL (7.6-11.3); Monocytes % 5.5 % (3.3-12.3); Neutrophils % 80.2 % (41.7-73.7); Platelets 169 thou/uL (152-406); RBC Red Blood Cell Count 3.85 M/uL (3.86-4.86); Red Cell Distribution Width 15.4 % (12.1-15.2)
[2023-12-21 12:33] LABS: PT Prothrombin Time 11.9 SECONDS (9.4-12.5); Protime INR 1.06
--- NOTE | 2023-12-21 12:45 | RAD REPORT ---
EXAM: CT brain without contrast HISTORY: HEADACHE COMPARISON: 09/06/2023 TECHNIQUE: Multiple contiguous axial images were obtained and a CT of the brain without contrast. Sag ittal and coronal reformats were performed. One or more of the following dose reduction techniques were used: Automated exposure control, adjust ment of the mA and/or kV according to patient size, and/or iterative reconstruction. FINDINGS: No evidence of hydrocephalus, intracranial hemorrhage, or extra-axial fluid collection. Mild brain atrophy with mild periventricular and deep white matter chronic microvascular ischemic ch anges present. No evidence of midline shift or areas of brain edema. The calvarium is intact. The visualized paranasal sinuses and mastoid air cells are essentially clear . IMPRESSION: No evidence of acute intracranial abnormality.
--- NOTE | 2023-12-21 12:53 | RAD REPORT ---
EXAMINATION: ONE VIEW CHEST XR CLINICAL INDICATION: SOB TECHNIQUE: Frontal chest projection is submitted. Examination is limited by patient positioning and t echnique. COMPARISON: 11/21/2023 FINDINGS: Mild bilateral pulmonary edema is suspected. The heart is moderately enlarged in size. No displaced f ractures identified. IMPRESSION: Mild CHF versus volume overload pattern is suspected.
[2023-12-21 12:54] LABS: ALT/SGPT 18 U/L (13-56); AST/SGOT 14 U/L (15-37); Albumin 2.9 g/dL (3.4-5.0); Albumin/Globulin Ratio 0.6 (1.1-1.8); Alkaline Phosphatase 75 U/L (45-117); Anion Gap 8.2 mEq/L (5.0-15.0); BUN Blood Urea Nitrogen 42 mg/dL (7-18); Bicarbonate 32 mEq/L (21-32); Bilirubin Total 0.4 mg/dL (0.2-1.0); Globulin 4.5 g/dL (2.3-3.5); Glomerular Filtration Rate 26 ml/min (=/>90); Glucose Level 248 mg/dL (74-106); Magnesium 1.6 mg/dL (1.6-2.4); NT PRO-BNP 2359 pg/mL (<450); Potassium 4.2 mEq/L (3.5-5.1); Protein, Total 7.4 g/dL (6.4-8.2); Sodium Level 137 mEq/L (136-145); Troponin High Sensitivity 22.3 pg/mL (<58.9)
[2023-12-21 12:55] LABS: Bilirubin Direct < 0.2 mg/dL (0-0.2); Bilirubin Indirect, Calculated 0.2 mg/dL (0.2-0.8)
[2023-12-21] MEDS ORDERED: FUROSEMIDE 40 MG/4 ML VIAL ONE (13:48)
[2023-12-21] MEDS ORDERED: FUROSEMIDE 20 MG/ 2ML VIAL ONE (13:48)
--- NOTE | 2023-12-21 16:34 | EDPHYS ---
Physician Documentation [facility] Name: Kaitlynn Snider Age: 78 yrs Sex: Female : 1945 Arrival Date: 12/21/2023 Time: 11:16 Bed 13 Private MD: ED Physician Shira Lovell HPI: 12/20 16:28 This 78 yrs old Female presents to ER via EMS with complaints of High Blood gb1 Pressure. 16:28 78 year old with shortness of breath, no chest pain, no fevers or chills, has a history gb1 of COPD, HTN and IBS. No falls reported. 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 Historical: - Allergies: 11:23 No Known Allergies; ss - PMHx: 11:23 Anxiety; COPD; Diabetes - NIDDM; High Cholesterol; Hypertension; Irritable bowel ss syndrome; Major Depressive Disorder; osteoarthritis; Sleep Apnea; - Immunization history:: Adult Immunizations unknown. - Infectious Disease History:: Denies. - Social history:: Smoking status: Patient denies any tobacco usage or history of. Exam: 16:28 Constitutional: This is a well developed, well nourished patient who is awake, alert, gb1 and in no acute distress. Head/Face: Normocephalic, atraumatic. Eyes: Pupils equal round and reactive to light, extra-ocular motions intact. Lids and lashes normal. Conjunctiva and sclera are non-icteric and not injected. Cornea within normal limits. Periorbital areas with no swelling, redness, or edema. ENT: Nares patent. No nasal discharge, no septal abnormalities noted. Tympanic membranes are normal and external auditory canals are clear. Oropharynx with no redness, swelling, or masses, exudates, or evidence of obstruction, uvula midline. Mucous membranes moist. Neck: Trachea midline, no thyromegaly or masses palpated, and no cervical lymphadenopathy. Supple, full range of motion without nuchal rigidity, or vertebral point tenderness. No Meningismus. Chest/axilla: Normal chest wall appearance and motion. Nontender with no deformity. No lesions are appreciated. Cardiovascular: Regular rate and rhythm with a normal S1 and S2. No gallops, murmurs, or rubs. Normal PMI, no JVD. No pulse deficits. Respiratory: Lungs have equal breath sounds bilaterally, clear to auscultation and percussion. No rales, rhonchi or wheezes noted. No increased work of breathing, no retractions or nasal flaring. Abdomen/GI: Soft, non-tender, with normal bowel sounds. No distension or tympany. No guarding or rebound. No evidence of tenderness throughout. Back: No spinal tenderness. No costovertebral tenderness. Full range of motion. Skin: Warm, dry with normal turgor. Normal color with no rashes, no lesions, and no evidence of cellulitis. MS/ Extremity: Pulses equal, no cyanosis. Neurovascular intact. Full, normal range of motion. Neuro: Awake and alert, GCS 15, oriented to person, place, time, and situation. Cranial nerves II-XII grossly intact. Motor strength 5/5 in all extremities. Sensory grossly intact. Cerebellar exam normal. Normal gait. Vital Signs: 11:19 BP 149 / 73; Pulse 54; Resp 14; Temp 98.8(O); Pulse Ox 99% on R/A; Pain 0/10; ss 11:50 BP 182 / 69; Pulse 61; Resp 18; Pulse Ox 100% on 3 lpm NC; db 12:28 BP 160 / 79; Pulse 56; Resp 18; Pulse Ox 99% on NC; db 13:00 BP 161 / 75; Pulse 52; Resp 16; Pulse Ox 100% on NC; db 14:00 BP 173 / 71; Pulse 54; Resp 16; Pulse Ox 100% on NC; db 15:00 BP 174 / 76; Pulse 53; Resp 16; Pulse Ox 100% on NC; db 16:30 BP 187 / 77; Pulse 51; Resp 18; Pulse Ox 100% on 3 lpm NC; db 18:00 BP 187 / 101; Pulse 60; Resp 18; Pulse Ox 99% on 3 lpm NC; db 11:19 Pain Scale: Adult ss MDM: 11:21 Medical Screening Exam initiated gb1 16:28 Differential diagnosis: hypertensive crisis, CHF with acute pulmonary edema, Pneumonia, gb1 NSTEMI. ED course: 78-year-old female with history CHF and COPD is here with an acute CHF exacerbation decompensated with acute pulmonary edema. Does have a chest x-ray that does clinically correlate. Her BNP is greater than 2000 and she has a mild RAYNE today as well. Her creatinine today is 1.93 compared to her baseline of 1.2 over the last 2 to 3 months. Patient is in no extremis today she does not require BiPAP support she is resting comfortably on 2 L nasal cannula with no acute respiratory decompensation or increased work of breathing. She is not retracting and at this time is not wheezing I do not think this is a COPD exacerbation. There is no focal pneumonia on the chest x-ray and her troponin is also negative with an EKG that shows sinus bradycardia with some nonspecific flattening of T waves in leads I and aVL and a wandering baseline in V3 her QTc is normal at 443. I will admit her to the hospitalist for cardiology evaluation, telemetry inpatient floor.. 16:34 Data reviewed: vital signs, nurses notes. gb12/20 11:21 Order name: Basic Metabolic Panel; Complete Time: 12:56 gb1 12/20 11:21 Order name: CBC with Diff; Complete Time: 12:43 gb1 12/20 11:21 Order name: LFT's; Complete Time: 12:56 gb1 12/20 11:21 Order name: Magnesium; Complete Time: 12:56 gb1 12/20 11:21 Order name: NT PRO-BNP; Complete Time: 12:56 gb1 12/20 11:21 Order name: PT-INR; Complete Time: 12:43 gb1 12/20 11:21 Order name: Troponin HS; Complete Time: 12:56 gb1 12/20 17:25 Order name: Urinalysis w/ reflexes EDMS 12/20 17:26 Order name: Basic Metabolic Panel EDMS 12/20 17:26 Order name: Basic Metabolic Panel EDMS 12/20 17:26 Order name: Basic Metabolic Panel EDMS 12/20 17:26 Order name: Basic Metabolic Panel EDMS 12/20 17:26 Order name: CBC with Automated Diff EDMS 12/20 17:26 Order name: CBC with Automated Diff EDMS 12/20 17:26 Order name: CBC with Automated Diff EDMS 12/20 17:26 Order name: CBC with Automated Diff EDMS 12/20 17:26 Order name: Magnesium EDMS 12/20 17:26 Order name: Magnesium EDMS 12/20 17:26 Order name: Magnesium EDMS 12/20 17:26 Order name: Magnesium EDMS 12/20 17:26 Order name: Phosphorus EDMS 10/17 17:26 Order name: Phosphorus EDMS 12/20 17:26 Order name: Phosphorus EDMS 12/20 17:26 Order name: Phosphorus EDMS 12/20 17:26 Order name: Troponin High Sensitivity EDMS 12/20 17:26 Order name: Troponin High Sensitivity EDMS 12/20 17:26 Order name: Troponin High Sensitivity EDMS 12/20 19:07 Order name: Glucose, Ancillary Testing EDMS 12/20 22:05 Order name: Glucose, Ancillary Testing EDMS 12/21 07:15 Order name: Urinalysis w/ reflexes db 12/21 08:10 Order name: Urinalysis w/ reflexes EDMS 12/21 08:35 Order name: Glucose, Ancillary Testing EDMS 12/21 08:43 Order name: Potassium EDMS 12/20 11:21 Order name: XRAY Chest (1 view); Complete Time: 12:56 gb1 12/20 11:21 Order name: CT Head Brain wo Cont; Complete Time: 12:56 gb1 12/20 17:25 Order name: Physical Therapy Consult EDMS 12/20 11:21 Order name: Cardiac monitoring; Complete Time: 13:16 gb1 12/20 11:21 Order name: EKG - Nurse/Tech; Complete Time: 13:16 gb1 12/20 11:21 Order name: IV Saline Lock; Complete Time: 13:16 gb1 12/20 11:21 Order name: Labs collected and sent; Complete Time: 13:16 gb1 12/20 11:21 Order name: O2 Per Protocol; Complete Time: 13:16 gb1 12/20 11:21 Order name: O2 Sat Monitoring; Complete Time: 13:16 gb1 12/20 11:33 Order name: Accucheck; Complete Time: 13:16 gb1 12/20 11:33 Order name: EKG - Nurse/Tech; Complete Time: 13:16 gb1 12/20 11:33 Order name: IV Saline Lock; Complete Time: 13:16 gb1 12/20 11:33 Order name: Labs collected and sent; Complete Time: 13:16 gb1 12/20 11:33 Order name: NPO; Complete Time: 13:16 gb1 12/20 11:33 Order name: O2 Per Protocol; Complete Time: 13:16 gb1 12/20 11:33 Order name: O2 Sat Monitoring; Complete Time: 13:16 gb1 12/20 11:33 Order name: Stroke Swallow Screen; Complete Time: 13:16 gb1 Administered Medications: 14:10 Drug: Furosemide IVP 60 mg IVP once; give over 2 minutes Route: IVP; Site: right db antecubital; 19:10 Follow up: Response: No adverse reaction rg5 Disposition Summary: 12/21/23 16:33 Hospitalization Ordered Notes: Hospitalization Status: Inpatient Admission gb1 Condition: Stable gb1 Problem: an acute exacerbation gb1 Symptoms: have worsened gb1 Bed/Room Type: Standard 1 Provider: Boaz Paz(12/21/23 16:34) gb1 Location: [facility] ER HOLD(12/21/23 18:15) ph Room Assignment: ERHOLD-(12/21/23 18:15) ph Diagnosis - 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 EDMS EDMS 11:21 11:21 CBC+H.LAB.BRZ ordered. EDMS EDMS 11:21 11:21 HEPATIC FUNCTION+C.LAB.BRZ ordered. EDMS EDMS 11:21 11:21 MAGNESIUM+C.LAB.BRZ ordered. EDMS EDMS 11:21 11:21 PROBNP+C.LAB.BRZ ordered. EDMS EDMS 11:21 11:21 PROTIME (+INR)+COAG.LAB.BRZ ordered. EDMS EDMS 11:21 11:21 Troponin High Sensitivity+C.LAB.BRZ ordered. EDMS EDMS 11:21 11:21 Chest Single View+RAD.RAD.BRZ ordered. EDMS EDMS 11:21 11:21 Head Brain Wo Cont+CT.RAD.BRZ ordered. EDMS EDMS 11:33 11:33 CT-STROKE BRAIN W/O CONTRAST+CT.RAD.BRZ ordered. EDMS EDMS 11:33 11:33 Chest Single View+RAD.RAD.BRZ ordered. EDMS EDMS 11:49 11:33 Neck Angio+CT.RAD.BRZ ordered. EDMS EDMS 16:34 16:33 Esther Wilhelm gb1 gb1 16:49 11:33 BASIC METABOLIC PANEL+C.LAB.BRZ ordered. EDMS EDMS 16:49 11:33 CBC+H.LAB.BRZ ordered. EDMS EDMS 16:49 11:33 Troponin High Sensitivity+C.LAB.BRZ ordered. EDMS EDMS 16:49 11:33 PTT, ACTIVATED+COAG.LAB.BRZ ordered. EDMS EDMS 18:15 16:33 Telemetry/MedSurg (Inpatient) gb1 ph 18:15 16:33 gb1 ph
--- NOTE | 2023-12-21 16:34 | ER ---
Nurse's Notes [facility] Name: Kaitlynn Snider Age: 78 yrs Sex: Female : 1945 Arrival Date: 12/21/2023 Time: 11:16 Bed 13 Private MD: Diagnosis: Acute on chronic combined systolic (congestive) and diastolic (congestive) heart failure;Acute pulmonary edema Presentation: 12/20 11:19 Chief complaint: EMS states: snf personnel states that BP was 230/120 this morning at 0700. BP now is 149/73. Coronavirus screen: Client denies travel out of the [place] in the last 14 days. Ebola Screen: Patient denies exposure to infectious person. Patient denies travel to an Ebola-affected area in the 21 days before illness onset. Initial Sepsis Screen: Does the patient meet any 2 criteria? No. Patient's initial sepsis screen is negative. Does the patient have a suspected source of infection? No. Patient's initial sepsis screen is negative. Risk Assessment: Do you want to hurt yourself or someone else? Patient reports no desire to harm self or others. Onset of symptoms is unknown. 11:19 Acuity: RHINA 3 ss 11:19 Method Of Arrival: EMS: [facility] 11:24 Care prior to arrival: Glucose check: 302. ss 12:00 Care prior to arrival: db Historical: - Allergies: 11:23 No Known Allergies; ss - PMHx: 11:23 Anxiety; COPD; Diabetes - NIDDM; High Cholesterol; Hypertension; Irritable bowel ss syndrome; Major Depressive Disorder; osteoarthritis; Sleep Apnea; - Immunization history:: Adult Immunizations unknown. - Infectious Disease History:: Denies. - Social history:: Smoking status: Patient denies any tobacco usage or history of. Screenin:32 [facility] ED Fall Risk Assessment (Adult). Abuse screen: UNABLE TO ANSWER. Nutritional db screening: UNABLE TO ANSWER. Tuberculosis screening: UNABLE TO ANSWER. [place]ane Swallow Protocol Exclusion Criteria: Unable to remain alert for testing: Yes. 14:00 [facility] ED Fall Risk Assessment (Adult). [facility] ED Fall Risk Assessment (Adult) db History of falling in the last 3 months, including since admission No falls in past 3 months (0 pts) Confusion or Disorientation Yes (5 pts) Intoxicated or Sedated No (0 pts) Impaired Gait Yes (1 pt) Mobility Assist Device Used Yes (1 pt) Altered Elimination No (0 pt) Score/Fall Risk Level 3 or more points = High Risk Oriented to surroundings, Maintained a safe environment, Hourly rounding (assess needs \T\ fall precautionary measures) done. [place] Swallow Protocol Brief Cognitive Screen What is your name? Normal, Where are you right now? Normal, What year is it? Abnormal Oral Mechanism Examination Facial Symmetry: Normal, Motion: Normal, Lip Closure: Normal, Oral Mechanism Result: Normal. 3 oz Water Swallow Challenge: Pt able to drink all water without stopping, coughing, choking or throat clearing: Yes Result: PASS. Assessment: 11:59 Reassessment: Patient appears in no apparent distress at this time. RADIOLOGY AT PATIENT BEDSIDE. 12:00 Neuro: Level of Consciousness is confused, Oriented to none. db 14:00 Reassessment: Patient appears in no apparent distress at this time. Patient and/or db family updated on plan of care and expected duration. Pain level reassessed. PATIENT CHANGED. PURWICK PUT IN PLACE. Patient states symptoms have improved. 14:25 Reassessment: Patient appears in no apparent distress at this time. Patient and/or db family updated on plan of care and expected duration. Pain level reassessed. General: Appears in no apparent distress. comfortable, Behavior is calm, cooperative. Pain: Denies pain. Neuro: Level of Consciousness is awake, alert, obeys commands, Oriented to person. Respiratory: Airway is patent Respiratory effort is even, unlabored, Respiratory pattern is regular, symmetrical. 15:18 Reassessment: Patient appears in no apparent distress at this time. Patient and/or db family updated on plan of care and expected duration. Pain level reassessed. General: Appears in no apparent distress. comfortable, Behavior is calm, cooperative. 17:30 Reassessment: PATIENT PLACED IN HOSPITAL BED. db 18:30 Reassessment: Patient appears in no apparent distress at this time. Patient and/or db family updated on plan of care and expected duration. Pain level reassessed. Vital Signs: 11:19 BP 149 / 73; Pulse 54; Resp 14; Temp 98.8(O); Pulse Ox 99% on R/A; Pain 0/10; ss 11:50 BP 182 / 69; Pulse 61; Resp 18; Pulse Ox 100% on 3 lpm NC; db 12:28 BP 160 / 79; Pulse 56; Resp 18; Pulse Ox 99% on NC; db 13:00 BP 161 / 75; Pulse 52; Resp 16; Pulse Ox 100% on NC; db 14:00 BP 173 / 71; Pulse 54; Resp 16; Pulse Ox 100% on NC; db 15:00 BP 174 / 76; Pulse 53; Resp 16; Pulse Ox 100% on NC; db 16:30 BP 187 / 77; Pulse 51; Resp 18; Pulse Ox 100% on 3 lpm NC; db 18:00 BP 187 / 101; Pulse 60; Resp 18; Pulse Ox 99% on 3 lpm NC; db 11:19 Pain Scale: Adult ss ED Course: 11:18 Patient arrived in ED. ss 11:20 Shira Lovell MD is Attending Physician. gb1 11:23 Triage completed. ss 11:23 Arm band placed on right wrist. ss 11:59 Lenora Miner, RN is Primary Nurse. db 12:20 Initial lab(s) drawn, by me, sent to lab. Inserted saline lock: 20 gauge in right db antecubital area, using aseptic technique. Blood collected. Flushed with 10 mL NS. 12:[address] via stretcher. db 12:25 Patient has correct armband on for positive identification. Bed in low position. Call db light in reach. Side rails up X2. Client placed on continuous cardiac and pulse oximetry monitoring. NIBP monitoring applied. revolving inventory clerk on. Pulse ox on. NIBP on. Warm blanket given. Pillow given. 12:28 Patient moved back from CT. db 12:30 CT Head Brain wo Cont In Process Unspecified. EDMS 12:38 XRAY Chest (1 view) In Process Unspecified. EDMS 16:33 Esther Wilhelm MD is Hospitalizing Provider. gb1 16:34 Hospitalizing Provider role handed off by Esther Wilhelm MD gb1 16:34 Boaz Paz is Hospitalizing Provider. gb1 17:23 CM received message from provider, ASHLEE King inquiring about patient's living ane situation at [facility]. 1730 CM spoke to Ama[facility] Nursing Director, via telephone, at [phone] per June, is a exterminator resident. 1731 CM communicated message to Christine, via telephone relaying details of status at [facility]. 19:14 Provided Education on: ADMISSION. db 19:14 No provider procedures requiring assistance completed. Patient admitted, IV remains in db place. 20:19 Ciro Swanson, RN is Primary Nurse. rg5 12/21 08:39 Primary Nurse role handed off by Ciro Swanson RN eb Administered Medications: 12/20 14:10 Drug: Furosemide IVP 60 mg IVP once; give over 2 minutes Route: IVP; Site: right db antecubital; 19:10 Follow up: Response: No adverse reaction rg5 Medication: 15:19 VIS not applicable for this client. db Outcome: 16:33 Decision to Hospitalize by Provider. gb1 19:14 Admitted to ER Hold. [facility]. db 19:14 Condition: stable 19:14 Instructed on the need for admit, 12/21 11:09 Patient left the ED. db Signatures: Dispatcher [employer] EDMS Damari Gipson, KARL RN Emily Márquez Danielle, RN RN db Shira Lovell MD MD gb1 Ciro Swanson RN RN rg5 Simi Woody RN RN ane Corrections: (The following items were deleted from the chart) 12/20 17:38 17:23 CM received message from provider, ASHLEE King inquiring about patient's living ane situation at [facility]. 1730 CM spoke to [facility] Assisted Living Nursing Director, via telephone, at [phone] per June, is a senior living resident. 1731 communicated message to Christine, via telephone relaying details of status at [facility]. ane 19:14 11:50 BP 182 / 69; Pulse 61bpm; Resp 18bpm; Pulse Ox 100% RA; db db 19:14 14:00 BP 173 / 71; Pulse 54bpm; Resp 16bpm; Pulse Ox 100% RA; db db 19:14 13:00 BP 161 / 75; Pulse 52bpm; Resp 16bpm; Pulse Ox 100% RA; db db 19:14 12:28 BP 160 / 79; Pulse 56bpm; Resp 18bpm; Pulse Ox 99% RA; db db 19:14 15:00 BP 174 / 76; Pulse 53bpm; Resp 16bpm; Pulse Ox 100% RA; db db
[2023-12-21] MEDS ORDERED: ACETAMINOPHEN 325 MG TABLET PO PRN (17:17)
--- NOTE | 2023-12-21 17:27 | P.HP ---
Certification for Inpatient Patient admitted to: Observation With expected LOS: <2 Midnights Patient will require the following post-hospital care: None Practitioner: I am a practitioner with admitting privileges, knowledge of patient current condition, hospital course, and medical plan of care. Services: Services provided to patient in accordance with Admission requirements found in Title 42 Section 412.3 of the Code of Federal Regulations Patient History Date of Service: 12/21/23 Reason for admission: Acute hypoxic respiratory failure secondary to CHF exacerbation History of Present Illness: Kaitlynn Snider is a 78-year-old female with past medical history of anxiety, COPD, diabetes mellitusNIDDM, hypercholesterolemia, hypertension, irritable b owel syndrome, major depressive disorder, osteoarthritis, sleep apnea who presents to the ED with chief complaint of elevated blood pressure and shortness of breath. She denies chest pain, fever, chills but has a history of COPD. On home oxygen 4 L nasal cannula, saturation in the ED at 88%. 60 mg Lasix given in the ED with appropriate urine output and oxygen saturation elevated to 99% on 2 L nasal cannula. BNP 2359, BUN/creatinine 42/1.93, GFR 26, serum glucose 248. Initial vitals BP 149 / 73; Pulse 54; Resp 14; Temp 98.8(O); Pulse Ox 99% on 2 LNC. Chest x-ray reports"Mild CHF versus volume overload pattern is suspected." Head CT reports "No evidence of acute intracranial abnormality" Kaitlynn be admitted to hospitalist service for further evaluation and treatment of acute hypoxic respiratory failure secondary to CHF exacerbation, pulmonary edema. Allergies No Known Allergies Allergy (Unverified 05/23/21 06:12) Home Medications: Allopurinol 300 mg PO DAILY AT SUPPER 09/17/23 Aspirin [Vazalore] 81 mg PO DAILY 09/17/23 Buspirone HCl [Buspar] 10 mg PO TID 09/17/23 Calcium Carbonate [Calcium] 600 mg PO NOON 09/17/23 Cetirizine HCl [Zyrtec*] 10 mg PO DAILY 09/17/23 Cholecalciferol (Vitamin D3) [Vitamin D3] 1,000 units PO NOON 09/17/23 Doxazosin Mesylate 4 mg PO BID 09/17/23 Escitalopram [Lexapro*] 10 mg PO DAILY 09/17/23 Gabapentin [Neurontin*] 300 mg PO BID 09/17/23 Hydralazine HCl 50 mg PO BID 09/17/23 Insulin Glargine,Hum.rec.anlog [Lantus] 10 units SQ DAILY 09/17/23 Magnesium Oxide [Magnesium] 400 mg PO NOON 09/17/23 Montelukast [Singulair*] 10 mg PO DAILY 09/17/23 Nebivolol HCl [Bystolic*] 10 mg PO DAILY 09/17/23 [place]-3 Acid Ethyl Esters 1 cap PO NOON 09/17/23 Omeprazole 20 mg PO BID 09/17/23 Pediatric Multivit No.203/Iron [Flintstones with Iron Tab Chew] 1 tab PO NOON 09/17/23 Turmeric Root Extract [Turmeric Curcumin] 500 mg PO NOON 09/17/23 Calcium Carbonate [Oscal*] 500 mg PO NOON tab 11/22/23 Cetirizine HCl [Zyrtec*] 10 mg PO DAILY #0 11/22/23 Furosemide [Lasix] 20 mg PO DAILY 30 Days #30 tab 11/22/23 Losartan Potassium [Cozaar*] 50 mg PO BID 11/22/23 Nebivolol HCl [Bystolic*] 10 mg PO DAILY tab 11/22/23 Spironolactone [Aldactone*] 25 mg PO DAILY 30 Days #30 tab 11/22/23 cloNIDine HCL [Catapres*] 0.1 mg PO BID PRN 30 Days #60 tab 11/22/23 - Past Medical/Surgical History Diabetic: Yes -: Hypertension -: Hyperlipidemia -: COPD-with home O2 -: Diabetes mellitus type 2 -: tonsilectomy -: R leg plates/pin -: dilation and curettage Psychosocial/ Personal History: patient lives at [place] - Family History Mother -: Lung disease Father -: Diabetes - Social History Smoking Status: Never smoker Alcohol use: No CD- Drugs: No Caffeine use: No Review of Systems General: Other (Sleeping) Respiratory: Shortness of Breath Cardiovascular: Other (Elevated blood pressure) Physical Examination - Physical Exam General: In no apparent distress, Other (lethargic) HEENT: Atraumatic, Normocephalic, PERRLA Neck: Supple Respiratory: Clear to auscultation bilaterally, Normal air movement Cardiovascular: Normal pulses, Regular rate/rhythm, Normal S1 S2 Capillary refill: <2 Seconds Gastrointestinal: Normal bowel sounds, Soft and benign, No tenderness, Distended (obese) Musculoskeletal: No clubbing Integumentary: No rashes Neurological: Normal speech - Studies Laboratory Data (last 24 hrs) 12/21/23 12/21/23 12/21/23 12:20 12:20 12:20 WBC 9.20 Hgb 11.7 L Hct 35.7 L Plt Count 169 PT 11.9 INR 1.06 APTT Sodium 137 Potassium 4.2 BUN 42 H Creatinine 1.93 H Glucose 248 H Magnesium 1.6 Total Bilirubin 0.4 AST 14 L ALT 18 Alkaline Phosphatase 75 12/21/23 12/21/23 12/21/23 11:33 11:33 11:33 WBC Cancelled Hgb Cancelled Hct Cancelled Plt Count Cancelled PT INR APTT Cancelled Sodium Cancelled Potassium Cancelled BUN Cancelled Creatinine Cancelled Glucose Cancelled Magnesium Total Bilirubin AST ALT Alkaline Phosphatase Assessment and Plan - Plan Assessment and plan Acute hypoxic respiratory failure secondary to CHF exacerbation Pulmonary edema COPD Sleep apnea -Home O2 4 L nasal cannula, currently on 2 L nasal cannula status post Lasix -60 mg Lasix IV given in the ED -Lasix will continue on the floor -O2 protocol as needed -Oxygen and saturation at 88 to 92% -Daily weights, strict I's and O's -DuoNebs scheduled Diabetes mellitusNIDDM -Accu-Chek with sliding scale insulin Hypertension Hypercholesterolemia Anxiety/depressive disorder Osteoarthritis -Continue home medications -Supportive care DVT PPx heparin Full code LOS 24-hour OBS Discharge Plan: Correction Plan to discharge in: 24 Hours - Advance Directives Does patient have a Living Will: No Does patient have a Durable POA for Healthcare: No
[2023-12-21] MEDS ORDERED: GLUCAGON 1 MG/VIAL IM PRN (17:37)
[2023-12-21] MEDS ORDERED: D10W 125 ML IV PRN (17:37)
[2023-12-21] MEDS: INSULIN REGULAR (HUMAN) 100 UNIT/ML SQ SCH (18:00)
[2023-12-21] MEDS: IPRATROPIUM BROM 0.5MG/2.5ML NEB SCH (19:00)
[2023-12-21] MEDS: ALBUTEROL 2.5 MG/3 ML NEB SOL NEB SCH (19:00)
[2023-12-21 23:17] VITALS: BMI 35.4
[2023-12-22] MEDS: HEPARIN 5000 UNIT/ML 1 ML VIAL SQ SCH (01:00)
[2023-12-22] MEDS ORDERED: IPRATROPIUM BROM 0.5MG/2.5ML ONE (01:12)
[2023-12-22] MEDS ORDERED: ALBUTEROL 2.5 MG/3 ML NEB SOL ONE ×2 (01:12→08:11)
[2023-12-22] MEDS: HYDRALAZINE HCL 20 MG/ML VIAL IV ONE (03:09)
[2023-12-22] MEDS ORDERED: HYDRALAZINE HCL 20 MG/ML VIAL ONE (03:41)
[2023-12-22 05:22] LABS: Absolute Basophils 0.1 K/uL (0-0.5); Absolute Eosinophils 0.1 K/uL (0-0.5); Absolute Lymphocytes (CBC) 1.4 K/uL (0.7-4.9); Absolute Monocytes 0.5 K/uL (0.1-1.3); Absolute Neutrophil 7.9 K/uL (1.8-8.0); Basophils % 0.5 % (0-1.3); Eosinophils % 1.4 % (0-4.4); Hematocrit 36.2 % (36.0-45.0); Hemoglobin 11.8 g/dL (12.0-15.0); Lymphocytes % 13.8 % (15.3-44.8); MCH 30.2 pg (27.0-35.0); MCHC 32.7 g/dL (32.0-36.0); MCV 92.5 fL (80-100); MPV 10.7 fL (7.6-11.3); Monocytes % 5.3 % (3.3-12.3); Platelets 175 thou/uL (152-406); RBC Red Blood Cell Count 3.91 M/uL (3.86-4.86); Red Cell Distribution Width 15.6 % (12.1-15.2)
[2023-12-22 05:44] LABS: Anion Gap 7.7 mEq/L (5.0-15.0); Phosphorus 3.8 mg/dL (2.5-4.9)
[2023-12-22 05:45] LABS: Magnesium 1.6 mg/dL (1.6-2.4); Potassium 5.7 mEq/L (3.5-5.1)
[2023-12-22] MEDS: FUROSEMIDE 40 MG/4 ML VIAL IV ONE (07:00)
[2023-12-22 07:39] VITALS: BP 152/75; TEMP 98.9
[2023-12-22 08:09] LABS: Specific Gravity 1.009 (1.005-1.030); Sqamous Epithelial <5 /HPF (None Seen); Urine Bacteria None Seen /HPF (<20); Urine Bilirubin NEGATIVE (Negative); Urine Blood Negative (Negative); Urine Clarity Clear (Clear); Urine Color Colorless (Yellow); Urine Culture Reflex Order REFLEXED; Urine Glucose NEGATIVE (Negative); Urine Ketones NEGATIVE (Negative); Urine Microscopic Reflex YN ORDER UMIC; Urine Nitrite NEGATIVE (Negative); Urine Protein TRACE (Negative); Urine RBC <5 /HPF (None Seen); Urine Urobilinogen Normal (Normal)
--- NOTE | 2023-12-22 09:00 | P.DS ---
Admission Date: 12/21/23 Discharge Date: 12/22/23 Disposition: TRANSFER TO [facility] Discharge Condition: GOOD Reason for Admission: Acute hypoxic respiratory failure secondary to CHF exacerbation Brief History of Present Illness: Diagnosis Acute hypoxic respiratory failure secondary to CHF exacerbation UTI (POA) Pulmonary edema COPD Sleep apnea Diabetes mellitusNIDDM Hypertension Hypercholesterolemia Anxiety/depressive disorder Osteoarthritis HPI 12/21/2023 Kaitlynn Snider is a 78-year-old female with past medical history of anxiety, COPD, diabetes mellitusNIDDM, hypercholesterolemia, hypertension, irritable bowel syndrome, major depressive disorder, osteoarthritis, sleep apnea who presents to the ED with chief complaint of elevated blood pressure and shortness of breath. She denies chest pain, fever, chills but has a history of COPD. On home oxygen 4 L nasal cannula, saturation in the ED at 88%. 60 mg Lasix given in the ED with appropriate urine output and oxygen saturation elevated to 99% on 2 L nasal cannula. BNP 2359, BUN/creatinine 42/1.93, GFR 26, serum glucose 248. Initial vitals BP 149 / 73; Pulse 54; Resp 14; Temp 98.8(O); Pulse Ox 99% on 2 LNC. Chest x-ray reports"Mild CHF versus volume overload pattern is suspected." Head CT reports "No evidence of acute intracranial abnormality" Kaitlynn be admitted to hospitalist service for further evaluation and treatment of acute hypoxic respiratory failure secondary to CHF exacerbation, pulmonary edema. Hospital Course: Kaitlynn Snider is a pleasant 78 year old female with a past medical history significant for anxiety, COPD, diabetes mellitusNIDDM, hypercholesterolemia, hypertension, irritable bowel syndrome, major depressive disorder, osteoarthritis, sleep apnea who was admitted to the [facility] on 12/21/2023 for acute hypoxic respiratory failure. Kaitlynn presented to the ED with chief complaint of elevated blood pressure and shortness of breath. Kaitlynn was given lasic with appropriate UOP and nebulizer treatment started which improved ease of breathing. She remained in no acute distress. Oxygen saturation remained in the high 90's. Kaitlynn uses 4 LNC home oxygen and has improved to 2 LNC this admission. Breath sounds clear with normal air movement present. UTI was noted and cirpofloxacin was started at discharge. On 12/22/23, Kaitlynn was seen on morning rounds and deemed medically stable for discharge. Kaitlynn was discharged with instructions to schedule follow-up appointments with PCP and Dr. Davis. Kaitlynn was provided prescriptions for Atrovent and ciprofloxacin. Physical Exam General: Awake and oriented x2, NAD HEENT: Atraumatic, Normocephalic, PERRLA Neck: Supple Respiratory: Clear to auscultation bilaterally, non labored breathing, on 2 LNC Cardiovascular: Normal pulses, RRR, Normal S1 S2 Capillary refill: <2 Seconds Gastrointestinal: Normal bowel sounds, Soft on palpation, No tenderness, Distended (obese) Musculoskeletal: No clubbing Integumentary: No rashes Neurological: Normal speech Vital Signs/Physical Exam: Temp Pulse Resp BP Pulse Ox 98.9 F 64 16 152/75 H 98 12/22/23 07:38 12/22/23 07:38 12/22/23 07:38 12/22/23 07:38 12/22/23 07:38 Laboratory Data at Discharge: WBC 10.00 thou/uL (4.3-10.9) 12/22/23 04:57 Hgb 11.8 g/dL (12.0-15.0) L 12/22/23 04:57 Hct 36.2 % (36.0-45.0) 12/22/23 04:57 Plt Count 175 thou/uL (152-406) 12/22/23 04:57 PT 11.9 SECONDS (9.4-12.5) 12/21/23 12:20 INR 1.06 12/21/23 12:20 APTT Cancelled 12/21/23 11:33 Sodium 137 mEq/L (136-145) 12/22/23 04:57 Potassium 3.9 mEq/L (3.5-5.1) D 12/22/23 08:20 BUN 38 mg/dL (7-18) H 12/22/23 04:57 Creatinine 1.72 mg/dL (0.55-1.02) H 12/22/23 04:57 Glucose 175 mg/dL (74-106) H 12/22/23 04:57 Phosphorus 3.8 mg/dL (2.5-4.9) 12/22/23 04:57 Magnesium 1.6 mg/dL (1.6-2.4) 12/22/23 04:57 Total Bilirubin 0.4 mg/dL (0.2-1.0) 12/21/23 12:20 AST 14 U/L (15-37) L 12/21/23 12:20 ALT 18 U/L (13-56) 12/21/23 12:20 Alkaline Phosphatase 75 U/L (45-117) 12/21/23 12:20 Home Medications: Allopurinol 300 mg PO DAILY AT SUPPER 09/17/23 Aspirin [Vazalore] 81 mg PO DAILY 09/17/23 Buspirone HCl [Buspar] 10 mg PO TID 09/17/23 Calcium Carbonate [Calcium] 600 mg PO NOON 09/17/23 Cetirizine HCl [Zyrtec*] 10 mg PO DAILY 09/17/23 Cholecalciferol (Vitamin D3) [Vitamin D3] 1,000 units PO NOON 09/17/23 Doxazosin Mesylate 4 mg PO BID 09/17/23 Escitalopram [Lexapro*] 10 mg PO DAILY 09/17/23 Gabapentin [Neurontin*] 300 mg PO BID 09/17/23 Hydralazine HCl 50 mg PO BID 09/17/23 Insulin Glargine,Hum.rec.anlog [Lantus] 10 units SQ DAILY 09/17/23 Magnesium Oxide [Magnesium] 400 mg PO NOON 09/17/23 Montelukast [Singulair*] 10 mg PO DAILY 09/17/23 [place]-3 Acid Ethyl Esters 1 cap PO NOON 09/17/23 Omeprazole 20 mg PO BID 09/17/23 Pediatric Multivit No.203/Iron [Flintstones with Iron Tab Chew] 1 tab PO NOON 09/17/23 Turmeric Root Extract [Turmeric Curcumin] 500 mg PO NOON 09/17/23 Furosemide [Lasix*] 20 mg PO DAILY 30 Days #30 tab 11/22/23 Losartan Potassium [Cozaar*] 50 mg PO BID 11/22/23 Nebivolol HCl [Bystolic*] 10 mg PO DAILY tab 11/22/23 Spironolactone [Aldactone*] 25 mg PO DAILY 30 Days #30 tab 11/22/23 cloNIDine HCL [Catapres*] 0.1 mg PO BID PRN 30 Days #60 tab 11/22/23 Ciprofloxacin HCl [Cipro 500 MG Tablet] 500 mg PO BID 7 Days #14 tab 12/22/23 Ipratropium Neb [Atrovent Neb] 0.2 mg IH Q6H PRN 30 Days #120 ml 12/22/23 New Medications: Ipratropium Neb [Atrovent Neb] 0.2 mg IH Q6H PRN 30 Days #120 ml PRN Reason: Shortness Of Breath Ciprofloxacin HCl [Cipro 500 MG Tablet] 500 mg PO BID 7 Days #14 tab Physician Discharge Instructions: 1. Please call and schedule a follow-up appointment with your PCP in 3-5 days - Please follow-up with your PCP for medication refills/adjustments 2. Please call and schedule a follow-up appointment with Dr. Davis in one week -Continued lung health 3. Continue diabetic diet 4. activity restrictions, fall precautions 5. Return to the ED if symptoms worsen Changes Zyrtec 10 mg daily Bystolic 10 mg daily Calcium 600 mg daily New medication Atrovent 1 ampoule every 6 hours as needed for shortness of breath Cipro 500 mg twice daily x 7 days Diet: ADA Activity: Fall precautions Followup: Luciano Mcfadden MD [Primary Care Provider] - Chad Davis MD [ACTIVE - CAN ADMIT] -
[2023-12-22 09:27] VITALS: O2SAT 97
[2023-12-22] MEDS ORDERED: HEPARIN 5000 UNIT/ML 1 ML VIAL ONE (09:28)
[2023-12-22] MEDS ORDERED: FUROSEMIDE 40 MG/4 ML VIAL ONE (09:28)
== END 2023-12-22 10:30 ==
LOC: ER 11:16 → ERHOLD 17:17
PROVIDERS: ADMIT Internal Medicine; ATTEND Internal Medicine
DX: I50.43 Acute on chronic combined systolic (congestive) and diastolic (congestive) heart failure (principal); J96.01 Acute respiratory failure with hypoxia; J81.0 Acute pulmonary edema; J44.9 Chronic obstructive pulmonary disease, unspecified; N39.0 Urinary tract infection, site not specified; G47.33 Obstructive sleep apnea (adult) (pediatric); E11.9 Type 2 diabetes mellitus without complications; I10 Essential (primary) hypertension; E78.00 Pure hypercholesterolemia, unspecified; F32.A Depression, unspecified; F41.9 Anxiety disorder, unspecified; M19.90 Unspecified osteoarthritis, unspecified site; Z99.81 Dependence on supplemental oxygen; K58.9 Irritable bowel syndrome, unspecified
CPT/HCPCS: 93005; 87088; 85025 ×2; 81001; 87086; 80048 ×2; 36415; 83735 ×2; 84100; 84132; 85610; 82947 ×3; 80076; 87077 ×2; 87186 ×2; 84484 ×3; 83880; 70450; 71045; 94640; 96374; 99285; J1644; J1940 ×3; J7613 ×2; J7644; G0378; J0360

== ENCOUNTER 2024-01-23 11:58 | Inpatient (IN) | payer OTHER ==
[2024-01-23 12:33] LABS: Absolute Lymphocytes (CBC) 0.8 K/uL (0.7-4.9); Absolute Monocytes 0.5 K/uL (0.1-1.3); Basophils % 0.5 % (0-1.3); Eosinophils % 0.5 % (0-4.4); Hematocrit 31.8 % (36.0-45.0); Hemoglobin 10.1 g/dL (12.0-15.0); Lymphocytes % 8.5 % (15.3-44.8); MCHC 31.7 g/dL (32.0-36.0); MCV 94.8 fL (80-100); MPV 9.9 fL (7.6-11.3); Monocytes % 5.5 % (3.3-12.3); Platelets 181 thou/uL (152-406); RBC Red Blood Cell Count 3.36 M/uL (3.86-4.86); Red Cell Distribution Width 15.4 % (12.1-15.2)
[2024-01-23 12:53] LABS: AST/SGOT 12 U/L (15-37); Albumin 2.7 g/dL (3.4-5.0); Albumin/Globulin Ratio 0.6 (1.1-1.8); Alkaline Phosphatase 64 U/L (45-117); Anion Gap 9.4 mEq/L (5.0-15.0); BUN Blood Urea Nitrogen 36 mg/dL (7-18); Bicarbonate 32 mEq/L (21-32); Bilirubin Total 0.3 mg/dL (0.2-1.0); Globulin 4.5 g/dL (2.3-3.5); Glomerular Filtration Rate 24 ml/min (=/>90); Glucose Level 263 mg/dL (74-106); Magnesium 1.8 mg/dL (1.6-2.4); NT PRO-BNP 3096 pg/mL (<450); Potassium 4.4 mEq/L (3.5-5.1); Protein, Total 7.2 g/dL (6.4-8.2); Sodium Level 139 mEq/L (136-145)
[2024-01-23 12:54] LABS: ALT/SGPT < 14 U/L (13-56); Bilirubin Direct < 0.2 mg/dL (0-0.2); Bilirubin Indirect, Calculated 0.1 mg/dL (0.2-0.8)
--- NOTE | 2024-01-23 13:12 | RAD REPORT ---
EXAMINATION: ONE VIEW CHEST XR CLINICAL INDICATION: Female, 78 years old.,Cough;Dyspnea TECHNIQUE: Frontal chest projection is submitted. Examination is limited by patient positioning and t echnique. COMPARISON: 12/21/2023 FINDINGS: The lungs are again hypoinflated. Patient rotation somewhat limits evaluation. Progressive central in terstitial prominence and perihilar fluffy opacities. Blunting of the left costophrenic angle is again seen, may reflect atelectasis or small effusion. No pneumothorax or sizable effusion. The hear t is normal in size. Mediastinal contours are unremarkable. IMPRESSION: Progressive central interstitial prominence which may relate to pulmonary edema.
--- NOTE | 2024-01-23 13:47 | EDPHYS ---
Physician Documentation [facility] Name: Kaitlynn Snider Age: 78 yrs Sex: Female : 1945 Arrival Date: 01/23/2024 Time: 11:58 Bed 15 Private MD: ED Physician Napoleon Garrido HPI: 01/22 13:39 This 78 yrs old Female presents to ER via EMS with complaints of Breathing Difficulty. ms3 13:39 Kaitlynn Snider is a 78-year-old female with a history of residing in a residential, ms3 presenting to the emergency department with shortness of breath. Her oxygen saturation was reported at 83% by the residential staff, prompting the call to emergency services. She is on supplemental oxygen at the residential, although the exact flow rate is unknown. Prior to the ambulance's arrival, she was using oxygen. She reports a cough but denies fever, chills, nausea, or vomiting. . Historical: - Allergies: 12:04 No Known Allergies; rs5 - PMHx: 12:04 Anxiety; COPD; Diabetes - NIDDM; High Cholesterol; Hypertension; Major Depressive rs5 Disorder; osteoarthritis; Irritable bowel syndrome; Sleep Apnea; - PSHx: 12:04 None; rs5 - Immunization history:: Adult Immunizations up to date. - Infectious Disease History:: Denies. - Social history:: Smoking status: Patient denies any tobacco usage or history of. ROS: 13:39 Constitutional: Negative for fever, and chills. Neck: Negative for injury, pain, and ms3 swelling, Cardiovascular: Negative for chest pain, and palpitations. Abdomen/GI: Negative for abdominal pain, nausea, vomiting, diarrhea, and constipation, Back: Negative for injury and pain, MS/Extremity: Negative for injury and deformity, 13:39 Respiratory: Positive for shortness of breath, Exam: 13:39 Constitutional: This is a well developed, well nourished patient who is awake, alert, ms3 and in no acute distress. Chest/axilla: Normal chest wall appearance and motion. Nontender with no deformity. Cardiovascular: Regular rate and rhythm with a normal S1 and S2. No gallops, murmurs, or rubs. Normal PMI, no JVD. No pulse deficits. 13:39 Respiratory: the patient does not display signs of respiratory distress, Respirations: normal, Breath sounds: rales, are located in both bases, 14:02 ECG was reviewed by the Attending Physician. ms3 Vital Signs: 12:00 BP 140 / 67; Pulse 83; Resp 20; Temp 98(O); Pulse Ox 94% on 6 lpm NC; rs5 14:30 BP 135 / 61; Pulse 74; Resp 16; Pulse Ox 97% on 2 lpm NC; ko1 MDM: 12:22 Medical Screening Exam initiated ms3 13:39 Differential diagnosis: CHF exacerbation, Chronic Obstructive Pulmonary Disease ms3 pneumonia, pulmonary edema. Data reviewed: vital signs, nurses notes, lab test result(s), EKG, radiologic studies, and as a result, I will admit patient. Consideration of Admission/Observation Patient was admitted/placed on observation. Management of patient was discussed with the following: Hospitalist: Dr Fraser. I considered the following discharge prescriptions or medication management in the emergency department Medications were administered in the Emergency Department. See MAR. Independent interpretation of the following test(s) in the Emergency Department EKG: See my EKG interpretation above. Historians other than the Patient: EMS: . Counseling: I had a detailed discussion with the patient and/or guardian regarding the historical points, exam findings, and any diagnostic results supporting the discharge/admit diagnosis, lab results, radiology results, the need for further work-up and treatment in the hospital. ED course: Discussed necessity for admission with patient. Patient understands and agrees with plan. All questions were answered. Patient has remained in stable condition while in the emergency department.. 01/22 12:15 Order name: Basic Metabolic Panel; Complete Time: 13:36 ms3 01/22 12:15 Order name: CBC with Diff ms3 01/22 12:15 Order name: LFT's; Complete Time: 13:36 ms3 01/22 12:15 Order name: Magnesium; Complete Time: 13:36 ms3 01/22 12:15 Order name: NT PRO-BNP; Complete Time: 13:36 ms3 01/22 12:15 Order name: Troponin HS; Complete Time: 13:36 ms3 01/22 12:15 Order name: XRAY Chest (1 view); Complete Time: 13:36 ms3 01/22 14:12 Order name: Renal Ultrasound-Complete EDMS 01/22 12:15 Order name: EKG; Complete Time: 12:16 ms3 01/22 12:15 Order name: Cardiac monitoring; Complete Time: 12:17 ms3 01/22 12:15 Order name: EKG - Nurse/Tech; Complete Time: 12:37 ms3 01/22 12:15 Order name: IV Saline Lock; Complete Time: 13:03 ms3 01/22 12:15 Order name: Labs collected and sent; Complete Time: 12:27 ms3 01/22 12:15 Order name: O2 Per Protocol; Complete Time: 12:27 ms3 01/22 12:15 Order name: O2 Sat Monitoring; Complete Time: 12:27 ms3 EC:02 Rate is 70 beats/min. Rhythm is regular. Right axis deviation noted. IL interval is ms3 normal. QRS interval is normal. Clinical impression: NSR w/ Non-specific ST/T Changes. Interpreted by me. Reviewed by me. Administered Medications: 13:49 Drug: Furosemide IVP 40 mg IVP once; give over 2 minutes Route: IVP; Site: right ko1 antecubital; 14:04 Follow up: Response: No adverse reaction ko1 Disposition Summary: 01/23/24 13:46 Hospitalization Ordered Notes: Hospitalization Status: Inpatient Admission ms3 Provider: Barrington Fraser ms3 Location: Telemetry/MedSurg (Inpatient) ms3 Condition: Stable ms3 Problem: new ms3 Symptoms: are unchanged ms3 Bed/Room Type: Standard ms3 Room Assignment: 220(01/23/24 15:31) bd Diagnosis - Heart failure, unspecified ms3 - Shortness of breath ms3 - Cough ms3 Forms: - Medication Reconciliation Form ms3 - SBAR form ms3 - Leadership Thank You Letter ms3 Signatures: Dispatcher [employer] EDDali Pena bd Napoleon Garrido DO DO ms3 Gris Hough, RN RN ko1 Frank Bermeo, RN RN rs5 Corrections: (The following items were deleted from the chart) 15:31 13:46 ms3 bd
--- NOTE | 2024-01-23 13:47 | ER ---
Nurse's Notes [facility] [place], [place] [facility] Name: Kaitlynn Snider Age: 78 yrs Sex: Female : 1945 Arrival Date: 01/23/2024 Time: 11:58 Bed 15 Private MD: Diagnosis: Heart failure, unspecified;Shortness of breath;Cough Presentation: 01/22 12:00 Chief complaint: EMS states: [facility] toned out EMS for difficulty rs5 breathing and low spo2 in 80's RA, pt titrated up to 6L and spo2 is now 94%. Coronavirus screen: At this time, the client does not indicate any symptoms associated with coronavirus-19. Ebola Screen: No symptoms or risks identified at this time. Initial Sepsis Screen: Does the patient meet any 2 criteria? No. Patient's initial sepsis screen is negative. Does the patient have a suspected source of infection? No. Patient's initial sepsis screen is negative. Risk Assessment: Do you want to hurt yourself or someone else? Patient reports no desire to harm self or others. Onset of symptoms was January 23, 2024. 12:00 Method Of Arrival: EMS: [facility] rs5 12:00 Acuity: RHINA 3 rs5 Triage Assessment: 15:44 General: Appears in no apparent distress. General: Appears in no apparent distress. ko1 Behavior is calm, cooperative, appropriate for age. Respiratory: Onset: The symptoms/episode began/occurred gradually, the patient has mild shortness of breath. Respiratory: Reports shortness of breath at rest. Historical: - Allergies: 12:04 No Known Allergies; rs5 - PMHx: 12:04 Anxiety; COPD; Diabetes - NIDDM; High Cholesterol; Hypertension; Major Depressive rs5 Disorder; osteoarthritis; Irritable bowel syndrome; Sleep Apnea; - PSHx: 12:04 None; rs5 - Immunization history:: Adult Immunizations up to date. - Infectious Disease History:: Denies. - Social history:: Smoking status: Patient denies any tobacco usage or history of. Screenin:14 [facility] ED Fall Risk Assessment (Adult) History of falling in the last 3 months, me1 including since admission No falls in past 3 months (0 pts) Confusion or Disorientation No (0 pts) Intoxicated or Sedated No (0 pts) Impaired Gait Yes (1 pt) Mobility Assist Device Used Yes (1 pt) Altered Elimination Yes (1 pt) Score/Fall Risk Level 0 - 2 = Low Risk Maintained a safe environment, Provided non-skid footwear, Hourly rounding (assess needs \T\ fall precautionary measures) done. Abuse screen: Denies threats or abuse. Nutritional screening: No deficits noted. Tuberculosis screening: No symptoms or risk factors identified. Assessment: 12:14 General: Appears in no apparent distress. well developed, well nourished, Behavior is me1 calm, cooperative, appropriate for age, Reports [facility] toned out EMS for difficulty breathing and low spo2 in 80's RA, pt titrated up to 6L and spo2 is now 94%. Pain: Denies pain. Neuro: Level of Consciousness is awake, alert, obeys commands, Oriented to person, situation. Cardiovascular: Patient's skin is warm and dry. Respiratory: Airway is patent Trachea midline Respiratory effort is even, unlabored, Respiratory pattern is regular, symmetrical, Breath sounds are diminished bilaterally. GI: Abdomen is round non-distended, Bowel sounds present X 4 quads. Reports upper abdominal pain. : No signs and/or symptoms were reported regarding the genitourinary system. EENT: very [place]. Derm: Skin is healthy with good turgor, Skin is pink, warm \T\ dry. Musculoskeletal: No signs and/or symptoms reported regarding the musculoskeletal system. 13:00 Cardiovascular: Rhythm is sinus rhythm. ko1 Vital Signs: 12:00 BP 140 / 67; Pulse 83; Resp 20; Temp 98(O); Pulse Ox 94% on 6 lpm NC; rs5 14:30 BP 135 / 61; Pulse 74; Resp 16; Pulse Ox 97% on 2 lpm NC; ko1 ED Course: 12:00 Patient arrived in ED. rs5 12:00 Napoleon Garrido DO is Attending Physician. ms3 12:04 Triage completed. rs5 12:14 Betsy Broussard, RN is Primary Nurse. me1 12:14 Patient has correct armband on for positive identification. Bed in low position. Call me1 light in reach. Side rails up X2. Provided Education on: POC. Verbalized understanding. . Client placed on continuous cardiac and pulse oximetry monitoring. NIBP monitoring applied. Pulse ox on. NIBP on. 12:14 environmental monitoring technician on. me1 12:14 No provider procedures requiring assistance completed. me1 12:15 Arm band placed on right wrist. Patient placed in an exam room, on a stretcher, on ko1 oxygen, on conveyor monitor, on pulse oximetry, Patient notified of wait time. 12:27 Basic Metabolic Panel Sent. me1 12:27 CBC with Diff Sent. me1 12:27 LFT's Sent. me1 12:27 Magnesium Sent. me1 12:27 NT PRO-BNP Sent. me1 12:27 Troponin HS Sent. me1 12:37 EKG done, by ED staff, reviewed by Napoleon Garrido DO. me1 13:03 Inserted saline lock: 20 gauge in right antecubital area, using aseptic technique. ko1 Blood collected. Flushed with 10 mL NS. Oxygen administration via nasal cannula \T\ 4L/min. 13:06 XRAY Chest (1 view) In Process Unspecified. EDMS 13:45 Barrington Fraser MD is Hospitalizing Provider. ms3 15:40 Patient admitted, IV remains in place. ko1 Administered Medications: 13:49 Drug: Furosemide IVP 40 mg IVP once; give over 2 minutes Route: IVP; Site: right ko1 antecubital; 14:04 Follow up: Response: No adverse reaction ko1 Medication: 12:14 VIS not applicable for this client. me1 Outcome: 13:46 Decision to Hospitalize by Provider. ms3 15:40 Admitted to Med/surg accompanied by tech, via stretcher, room 220, with chart, ko1 15:40 Condition: stable 15:40 Instructed on the need for admit, 17:29 Patient left the ED. iw Signatures: Dispatcher [employer] EDMS Zoya Killian, RN RN iw Napoleon Garrido DO DO ms3 Gris Hough, RN RN ko1 Frank Bermeo, RN RN rs5 Betsy Broussard, RN RN me1 Corrections: (The following items were deleted from the chart) 12:14 12:00 Chief complaint: EMS states: [facility] toned out EMS for difficulty me1 breathing and low spo2 in 80's RA, pt titrated up to 6L and spo2 is now 94% rs5
[2024-01-23] MEDS ORDERED: FUROSEMIDE 40 MG/4 ML VIAL ONE (13:48)
[2024-01-23] MEDS ORDERED: ALBUTEROL 2.5 MG/3 ML NEB SOL NEB PRN (16:06)
[2024-01-23] MEDS ORDERED: D10W 125 ML IV PRN (16:21)
[2024-01-23] MEDS ORDERED: GLUCAGON 1 MG/VIAL IM PRN (16:21)
[2024-01-23] MEDS: INSULIN REGULAR (HUMAN) 100 UNIT/ML SQ SCH (16:30)
--- NOTE | 2024-01-23 16:55 | P.HP ---
Certification for Inpatient Patient admitted to: Inpatient With expected LOS: >2 Midnights Patient will require the following post-hospital care: None Practitioner: I am a practitioner with admitting privileges, knowledge of patient current condition, hospital course, and medical plan of care. Services: Services provided to patient in accordance with Admission requirements found in Title 42 Section 412.3 of the Code of Federal Regulations Patient History Date of Service: 01/23/24 Reason for admission: CHF exacerbation, RAYNE History of Present Illness: 78-year-old female with history of chronic systolic congestive heart failure, COPD on home O2, diabetes mellitus type 2insulin-dependent, sleep apnea, hyperlipidemia presents to the emergency department with chief complaint of shortness of breath. [facility] staff report that she is requiring more oxygen than her baseline, previously per chart review she was on 4 L per nasal cannula, they had to increase to 5 to 6 L per nasal cannula and she is still satting in the upper 80s per report. She also reportedly had some lower extremity edema. She was evaluated in the emergency department found to have an RAYNE with a creatinine of 2.1 he was 3096 and chest x-ray showed progressive central interstitial prominence. She was given IV Lasix in the ED, ED wishes to admit for suspected CHF exacerbation, RAYNE Allergies No Known Allergies Allergy (Unverified 05/23/21 06:12) Home Medications: Allopurinol 300 mg PO DAILY AT SUPPER 09/17/23 Aspirin [Vazalore] 81 mg PO DAILY 09/17/23 Buspirone HCl [Buspar] 10 mg PO TID 09/17/23 Calcium Carbonate [Calcium] 600 mg PO NOON 09/17/23 Cetirizine HCl [Zyrtec*] 10 mg PO DAILY 09/17/23 Cholecalciferol (Vitamin D3) [Vitamin D3] 1,000 units PO NOON 09/17/23 Doxazosin Mesylate 4 mg PO BID 09/17/23 Escitalopram [Lexapro*] 10 mg PO DAILY 09/17/23 Gabapentin [Neurontin*] 300 mg PO BID 09/17/23 Hydralazine HCl 50 mg PO BID 09/17/23 Insulin Glargine,Hum.rec.anlog [Lantus] 10 units SQ DAILY 09/17/23 Magnesium Oxide [Magnesium] 400 mg PO NOON 09/17/23 Montelukast [Singulair*] 10 mg PO DAILY 09/17/23 [place]-3 Acid Ethyl Esters 1 cap PO NOON 09/17/23 Omeprazole 20 mg PO BID 09/17/23 Pediatric Multivit No.203/Iron [Flintstones with Iron Tab Chew] 1 tab PO NOON 09/17/23 Turmeric Root Extract [Turmeric Curcumin] 500 mg PO NOON 09/17/23 Furosemide [Lasix*] 20 mg PO DAILY 30 Days #30 tab 11/22/23 Losartan Potassium [Cozaar*] 50 mg PO BID 11/22/23 Nebivolol HCl [Bystolic*] 10 mg PO DAILY tab 11/22/23 Spironolactone [Aldactone*] 25 mg PO DAILY 30 Days #30 tab 11/22/23 cloNIDine HCL [Catapres*] 0.1 mg PO BID PRN 30 Days #60 tab 11/22/23 Ciprofloxacin HCl [Cipro 500 MG Tablet] 500 mg PO BID 7 Days #14 tab 12/22/23 Ipratropium Neb [Atrovent Neb] 0.2 mg IH Q6H PRN 30 Days #120 ml 12/22/23 - Past Medical/Surgical History Diabetic: Yes -: Hypertension -: Hyperlipidemia -: COPD-with home O2 -: Diabetes mellitus type 2 -: CHFsystolic -: tonsilectomy -: R leg plates/pin -: dilation and curettage Psychosocial/ Personal History: patient lives at [facility] - Family History Mother -: Lung disease Father -: Diabetes - Social History Alcohol use: No CD- Drugs: No Caffeine use: No Place of Residence: Jail Review of Systems 10-point ROS is otherwise unremarkable Respiratory: Shortness of Breath Physical Examination - Physical Exam General: Alert, In no apparent distress, Oriented x2, Other (Hard of hearing) HEENT: Atraumatic, PERRLA, Mucous membr. moist/pink, EOMI, Sclerae nonicteric Neck: Supple, 2+ carotid pulse no bruit, No LAD, Without JVD or thyroid abnormality Respiratory: Normal air movement, Diminished Cardiovascular: Regular rate/rhythm, Normal S1 S2, Edema (Trace lower extremity edema) Gastrointestinal: Normal bowel sounds, No tenderness Musculoskeletal: No tenderness Integumentary: No rashes Neurological: Normal speech, Normal strength at 5/5 x4 extr, Normal tone - Studies Laboratory Data (last 24 hrs) 01/23/24 01/23/24 12:27 12:27 WBC 9.50 Hgb 10.1 L Hct 31.8 L Plt Count 181 Sodium 139 Potassium 4.4 BUN 36 H Creatinine 2.10 H Glucose 263 H Magnesium 1.8 Total Bilirubin 0.3 AST 12 L ALT < 14 Alkaline Phosphatase 64 Assessment and Plan - Plan Assessment: Acute on chronic systolic congestive heart failure Acute on chronic hypoxic respiratory failure COPD on chronic home O2 RAYNE Diabetes mellitus type 2insulin-dependent Hypertension Hyperlipidemia Plan: Acute on chronic systolic congestive heart failure Acute on chronic hypoxic respiratory failure Continue IV diuresis Supplemental oxygen as needed, titrate to home level Monitor renal function closely while diuresing COPD on chronic home O2 As needed nebulizer treatments, supplemental oxygen RAYNE Renal ultrasound, nephrology consultation Monitor renal function closely while diuresing Diabetes mellitus type 2insulin-dependent ACHS Accu-Chek, sliding scale insulin Hypertension Hyperlipidemia Continue home medications DVT PPX: Heparin subcu Code status: Full Discharge Plan: Home Plan to discharge in: 48 Hours - Advance Directives Does patient have a Living Will: No Does patient have a Durable POA for Healthcare: No - Code Status/Comfort Care Code Status Assessed: Yes (Full code) Critical Care: No Time Spent Managing Pts Care (In Minutes): 57
--- NOTE | 2024-01-23 17:06 | RAD REPORT ---
EXAMINATION: US RETROPERITONEUM CLINICAL INDICATION: [facility] MAIN chelly TECHNIQUE: Real-time ultrasonography of the abdomen was performed. COMPARISON: No prior exam. FINDINGS: RIGHT KIDNEY: Right renal length measurement: 9.3 cm. Normal in echogenicity and size. No calculus, s olid mass or hydronephrosis. LEFT KIDNEY: Left renal length measurement: 8.9 cm. Normal in echogenicity and size. No calculus, margaux id mass or hydronephrosis. Mildly complex interpolar exophytic 1.3 cm cyst, appears stable. Anechoic superior pole 1.7 cm cyst. 1.1 cm parapelvic cyst. Mild bilateral perinephric fluid. URINARY BLADDER: Normal. ADDITIONAL FINDINGS: None. IMPRESSION: No acute or suspicious abnormalities. Stable left renal 1.3 cm mildly complex cyst and other benign-a ppearing cysts as above. Mild nonspecific perinephric fluid.
[2024-01-23] MEDS: PNEUMOCOCCAL VACCINE 0.5 ML IMVAC ONE (18:00)
[2024-01-23] MEDS: FUROSEMIDE 20 MG/ 2ML VIAL IV SCH (18:25)
[2024-01-23] MEDS: HEPARIN 5000 UNIT/ML 1 ML VIAL SQ SCH (20:14)
--- NOTE | 2024-01-23 21:32 | P.CNS ---
Date of Consult: 01/23/24 Reason for Consult: RAYNE Requesting Physician: Barrington Fraser Chief Complaint: CHF exacerbation, RAYNE History of Present Illness: 78-year-old female with history of chronic systolic congestive heart failure, COPD on home O2, diabetes mellitus type 2insulin-dependent, sleep apnea, hyperlipidemia presents to the emergency department with chief complaint of shortness of breath. care home staff report that she is requiring more oxyg en than her baseline, previously per chart review she was on 4 L per nasal cannula, they had to increase to 5 to 6 L per nasal cannula and she is still satting in the upper 80s per report. She also reportedly had some lower extremity edema. She was evaluated in the emergency department found to have an RAYNE with a creatinine of 2.1 he was 3096 and chest x-ray showed progressive central interstitial prominence. She was given IV Lasix in the ED, ED wishes to admit for suspected CHF exacerbation, RAYNE [id number] 13:39 This 78 yrs old Female presents to ER via EMS with complaints of Breathing Difficulty. ms3 13:39 Kaitlynn Snider is a 78-year-old female with a history of residing in a prison, ms3 presenting to the emergency department with shortness of breath. Her oxygen saturation was reported at 83% by the prison staff, prompting the call to emergency services. She is on supplemental oxygen at the prison, although the exact flow rate is unknown. Prior to the ambulance's arrival, she was using oxygen. She reports a cough but denies fever, chills, nausea, or vomiting. Allergies No Known Allergies Allergy (Unverified 05/23/21 06:12) Home medications list reviewed: Yes Home Medications: Allopurinol 300 mg PO DAILY AT SUPPER 09/17/23 Aspirin [Vazalore] 81 mg PO DAILY 09/17/23 Buspirone HCl [Buspar] 10 mg PO TID 09/17/23 Cetirizine HCl [Zyrtec*] 10 mg PO DAILY 09/17/23 Cholecalciferol (Vitamin D3) [Vitamin D3] 1,000 units PO NOON 09/17/23 Doxazosin Mesylate 4 mg PO BID 09/17/23 Escitalopram [Lexapro*] 10 mg PO DAILY 09/17/23 Gabapentin [Neurontin*] 300 mg PO BID 09/17/23 Hydralazine HCl 50 mg PO TID 09/17/23 Insulin Glargine,Hum.rec.anlog [Lantus] 10 units SQ DAILY 09/17/23 Magnesium Oxide [Magnesium] 400 mg PO NOON 09/17/23 Montelukast [Singulair*] 10 mg PO DAILY 09/17/23 Furosemide [Lasix*] 20 mg PO DAILY 30 Days #30 tab 11/22/23 Losartan Potassium [Cozaar*] 50 mg PO BID 11/22/23 Nebivolol HCl [Bystolic*] 10 mg PO DAILY tab 11/22/23 cloNIDine HCL [Catapres*] 0.1 mg PO BID PRN 30 Days #60 tab 11/22/23 Ciprofloxacin HCl [Cipro 500 MG Tablet] 500 mg PO BID 7 Days #14 tab 12/22/23 Ipratropium Neb [Atrovent Neb] 0.2 mg IH Q6H PRN 30 Days #120 ml 12/22/23 Spironolactone [Aldactone*] 1 tab PO DAILY 01/23/24 - Past Medical/Surgical History Diabetic: Yes -: HTN -: HLD -: COPD-with home O2 -: DM II -: Diastolic CHF -: tonsilectomy -: R leg plates/pin -: dilation and curettage Psychosocial/ Personal History: patient lives at [place] - Family History Mother Medical History: Lung disease Father Medical History: Diabetes - Social History Smoking Status: Unknown if ever smoked Alcohol use: No CD- Drugs: No Caffeine use: No Place of Residence: Long-Term Review of Systems is unable to be obtained Physical Examination Temp Pulse Resp BP Pulse Ox 97.7 F 73 20 182/80 H 92 01/23/24 20:00 01/23/24 20:00 01/23/24 20:00 01/23/24 20:00 01/23/24 20:00 General: In no apparent distress, Obese HEENT: Atraumatic Neck: Supple Respiratory: Diminished Cardiovascular: No edema, Regular rate/rhythm Gastrointestinal: Soft and benign, Non-distended Musculoskeletal: No clubbing, No contractures Integumentary: No rashes, No cyanosis Neurological: Normal speech Laboratory Data (last 24 hrs) 01/23/24 01/23/24 12:27 12:27 WBC 9.50 Hgb 10.1 L Hct 31.8 L Plt Count 181 Sodium 139 Potassium 4.4 BUN 36 H Creatinine 2.10 H Glucose 263 H Magnesium 1.8 Total Bilirubin 0.3 AST 12 L ALT < 14 Alkaline Phosphatase 64 Imagings Data: [id number] EXAMINATION: ONE VIEW CHEST XR CLINICAL INDICATION: Female, 78 years old.,Cough;Dyspnea TECHNIQUE: Frontal chest projection is submitted. Examination is limited by patient positioning and technique. COMPARISON: 12/21/2023 FINDINGS: The lungs are again hypoinflated. Patient rotation somewhat limits evaluation. Progressive central interstitial prominence and perihilar fluffy opacities. Blunting of the left costophrenic angle is again seen, may reflect atelectasis or small effusion. No pneumothorax or sizable effusion. The heart is normal in size. Mediastinal contours are unremarkable. IMPRESSION: Progressive central interstitial prominence which may relate to pulmonary edema. [id number] EXAMINATION: US RETROPERITONEUM CLINICAL INDICATION: [facility] MAIN ryane TECHNIQUE: Real-time ultrasonography of the abdomen was performed. COMPARISON: No prior exam. FINDINGS: RIGHT KIDNEY: Right renal length measurement: 9.3 cm. Normal in echogenicity and size. No calculus, solid mass or hydronephrosis. LEFT KIDNEY: Left renal length measurement: 8.9 cm. Normal in echogenicity and size. No calculus, solid mass or hydronephrosis. Mildly complex interpolar exophytic 1.3 cm cyst, appears stable. Anechoic superior pole 1.7 cm cyst. 1.1 cm parapelvic cyst. Mild bilateral perinephric fluid. URINARY BLADDER: Normal. ADDITIONAL FINDINGS: None. IMPRESSION: No acute or suspicious abnormalities. Stable left renal 1.3 cm mildly complex cyst and other benign-appearing cysts as above. Mild nonspecific perinephric fluid. [id number] LEFT VENTRICULAR WALL MOTION: NORMAL DOPPLER/COLOR FLOW: DIASTOLIC DYSFUNCTION COMMENTS: 1. NORMAL LEFT VENTRICULAR SYSTOLIC FUNCTION, EJECTION FRACTION 60-65%, NORMAL WALL MOTION 2. DIASTOLIC DYSFUNCTION 3. MILD ELEVATED FILLING PRESSURE (RIGHT ATRIAL PRESSURE 5-10 mmHg) Conclusions/Impression: Stage I RAYNE may be CRS CKD III with Proteinuria -No NSAIDs -Continue diuresis HTN with CKD/ CHF -Continue Nebivolol and Doxazosin Diastolic CHF, A/C -Continue Lasix DM II with CKD -RISS Hypoalbuminemia -Consider protein supplementation Anemia in chronic illness -Monitor H&H Hospitalist and ER notes reviewed Thank you kindly for the consultation
[2024-01-24] MEDS: HYDRALAZINE HCL 20 MG/ML VIAL IV PRN (00:43)
[2024-01-24 05:45] LABS: Absolute Eosinophils 0.2 K/uL (0-0.5); Absolute Lymphocytes (CBC) 1.4 K/uL (0.7-4.9); Absolute Monocytes 0.6 K/uL (0.1-1.3); Absolute Neutrophil 6.8 K/uL (1.8-8.0); Basophils % 0.6 % (0-1.3); Eosinophils % 1.8 % (0-4.4); Hematocrit 32.8 % (36.0-45.0); Hemoglobin 10.3 g/dL (12.0-15.0); Lymphocytes % 15.7 % (15.3-44.8); MCH 29.8 pg (27.0-35.0); MCHC 31.4 g/dL (32.0-36.0); MCV 94.9 fL (80-100); Monocytes % 6.9 % (3.3-12.3); Nucleated Red Blood Cells % 0.1 % (0-0); Platelets 198 thou/uL (152-406); RBC Red Blood Cell Count 3.46 M/uL (3.86-4.86); Red Cell Distribution Width 15.6 % (12.1-15.2)
[2024-01-24 06:07] LABS: Phosphorus 3.9 mg/dL (2.5-4.9); Troponin High Sensitivity 21.5 pg/mL (<58.9); Uric Acid 4.2 mg/dL (2.6-6.0)
[2024-01-24] MEDS ORDERED: IPRATROPIUM BROM 0.5MG/2.5ML IH PRN (06:31)
[2024-01-24] MEDS: NEBIVOLOL HCL 5 MG TAB PO SCH (07:57)
[2024-01-24] MEDS: DOXAZOSIN 4 MG TAB PO SCH (07:58)
[2024-01-24] MEDS: ESCITALOPRAM 20 MG TAB PO SCH (07:59)
[2024-01-24] MEDS: HYDRALAZINE HCL 25 MG TABLET PO SCH (08:00)
[2024-01-24] MEDS: CETIRIZINE HCL 5 MG TABLET PO SCH (08:01)
[2024-01-24] MEDS: BUSPIRONE HCL 5 MG TABLET PO SCH (08:02)
[2024-01-24] MEDS: ASPIRIN EC 81 MG TAB PO SCH (08:02)
[2024-01-24] MEDS: MONTELUKAST 10 MG TAB PO SCH (08:03)
--- NOTE | 2024-01-24 09:52 | P.PN ---
Date of Service: 01/24/24 Subjective: Breathing better today BP elevated no acute events overnight ROS: 10 point ROS as noted above, otherwise negative Physical exam GEN: Alert, oriented x3, NAD HEENT: Normal conjunctiva, sclera anicteric CV: Regular rate and rhythm, no edema Pulm: Nonlabored respirations on nasal cannula ABD: Soft, nontender, nondistended MSK: No joint tenderness Integumentary: No rashes Neuro: Normal speech, normal affect Vitals reviewed Assessment: Acute on chronic systolic congestive heart failure Acute on chronic hypoxic respiratory failure COPD on chronic home O2 RAYNE Diabetes mellitus type 2insulin-dependent Hypertension Hyperlipidemia Plan: Acute on chronic systolic congestive heart failure Acute on chronic hypoxic respiratory failure Continue gentle IV diuresis Supplemental oxygen as needed, titrate to home level Monitor renal function closely while diuresing COPD on chronic home O2 As needed nebulizer treatments, supplemental oxygen RAYNE Renal ultrasound, nephrology consultation Monitor renal function closely while diuresing Diabetes mellitus type 2insulin-dependent ACHS Accu-Chek, sliding scale insulin Hypertension Hyperlipidemia Continue home medications DVT PPX: Heparin subcu Code status: Full Discharge Plan: Home Plan to discharge in: 48 Hours Time Spent Managing Pts Care (In Minutes): 35
[2024-01-24] MEDS: MAGNESIUM OXIDE 400 MG TAB PO SCH (11:41)
[2024-01-24] MEDS: VITAMIN D 1000 UNIT TAB PO SCH (11:42)
--- NOTE | 2024-01-24 11:47 | EKG ---
Test Date: 2024-01-23 Test Time: 12:34:01 Haulage Boss: MEASUREMENT RESULTS: Intervals: Rate: 70 MA: 204 QRSD: 92 QT: 432 QTc: 466 Lewis: P: 80 MA: 204 QRS: 207 T: 6 INTERPRETIVE STATEMENTS: Normal sinus rhythm Anterolateral infarct, age undetermined Abnormal ECG Compared to ECG 12/21/2023 12:37:50 Sinus bradycardia no longer present Myocardial infarct finding still present Electronically Signed On 01-24-24 11:46:49 SOAPSTONER by Brian Petty
[2024-01-24 15:56] LABS: Sqamous Epithelial None Seen /HPF (None Seen); Urine Bacteria <20 /HPF (<20); Urine Bilirubin NEGATIVE (Negative); Urine Blood Trace (Negative); Urine Clarity Extremely Turbid (Clear); Urine Color Light-Orange (Yellow); Urine Crystals Unidentified Moderate /HPF (None Seen); Urine Culture Reflex Order REFLEXED; Urine Glucose NEGATIVE (Negative); Urine Ketones NEGATIVE (Negative); Urine Micro Reflex YN NO BILL MICROSCOPIC; Urine Nitrite NEGATIVE (Negative); Urine Protein 1+ (Negative); Urine RBC 21-50 /HPF (None Seen); Urine Urobilinogen Normal (Normal); Urine WBC >50 /HPF (<5); Urine WBC Clump Moderate /HPF (None Seen); Urine Yeast (Budding) Many /HPF (None Seen); Urine pH 6.5 (5.0-7.0)
[2024-01-24 16:26] LABS: MA/CREAT RATIO 254.3 (< 30.0); UR MICROALBUMIN 20.6 mg/dL (< 1.9); UR PROTEIN 44.6 mg/dL (<11.9); Urine Protein/Creatinine Ratio 0.55 ratio (<0.15)
--- NOTE | 2024-01-24 17:08 | P.CNS ---
Date of Consult: 01/24/24 Chief Complaint: CHF exacerbation, RAYNE History of Present Illness: Patient with history of dementia, unable to communicate history, not sure why she is here in the hospital but per records she was requiring more oxygen at skilled nursing. Allergies No Known Allergies Allergy (Unverified 05/23/21 06:12) Home medications list reviewed: Yes Home Medications: Allopurinol 300 mg PO DAILY AT SUPPER 09/17/23 Aspirin [Vazalore] 81 mg PO DAILY 09/17/23 Buspirone HCl [Buspar] 10 mg PO TID 09/17/23 Cetirizine HCl [Zyrtec*] 10 mg PO DAILY 09/17/23 Cholecalciferol (Vitamin D3) [Vitamin D3] 1,000 units PO NOON 09/17/23 Doxazosin Mesylate 4 mg PO BID 09/17/23 Escitalopram [Lexapro*] 10 mg PO DAILY 09/17/23 Gabapentin [Neurontin*] 300 mg PO BID 09/17/23 Hydralazine HCl 50 mg PO TID 09/17/23 Insulin Glargine,Hum.rec.anlog [Lantus] 10 units SQ DAILY 09/17/23 Magnesium Oxide [Magnesium] 400 mg PO NOON 09/17/23 Montelukast [Singulair*] 10 mg PO DAILY 09/17/23 Furosemide [Lasix*] 20 mg PO DAILY 30 Days #30 tab 11/22/23 Losartan Potassium [Cozaar*] 50 mg PO BID 11/22/23 Nebivolol HCl [Bystolic*] 10 mg PO DAILY tab 11/22/23 cloNIDine HCL [Catapres*] 0.1 mg PO BID PRN 30 Days #60 tab 11/22/23 Ciprofloxacin HCl [Cipro 500 MG Tablet] 500 mg PO BID 7 Days #14 tab 12/22/23 Ipratropium Neb [Atrovent Neb] 0.2 mg IH Q6H PRN 30 Days #120 ml 12/22/23 Spironolactone [Aldactone*] 1 tab PO DAILY 01/23/24 - Past Medical/Surgical History Diabetic: Yes -: Hypertension -: Hyperlipidemia -: COPD-with home O2 -: Diabetes mellitus type 2 -: Diastolic CHF -: tonsilectomy -: R leg plates/pin -: dilation and curettage Psychosocial/ Personal History: patient lives at [place] - Family History Mother Medical History: Lung disease Father Medical History: Diabetes - Social History Smoking Status: Unknown if ever smoked Alcohol use: No CD- Drugs: No Caffeine use: No Place of Residence: Long Term Review of Systems 10-point ROS is otherwise unremarkable Physical Examination Temp Pulse Resp BP Pulse Ox 97.7 F 60 18 129/58 L 95 01/24/24 12:00 01/24/24 12:00 01/24/24 12:00 01/24/24 12:00 01/24/24 12:00 General: Alert, In no apparent distress HEENT: Atraumatic, PERRLA, Mucous membr. moist/pink, EOMI, Sclerae nonicteric Neck: Supple, 2+ carotid pulse no bruit, No LAD, Without JVD or thyroid abnormality Respiratory: Clear to auscultation bilaterally, Normal air movement Cardiovascular: Regular rate/rhythm, Normal S1 S2 Gastrointestinal: Normal bowel sounds, No tenderness Musculoskeletal: No tenderness Integumentary: No rashes Neurological: Normal gait, Normal speech, Normal tone, Normal affect Lymphatics: No axilla or inguinal lymphadenopathy - Problems (1) Acute CHF Current Visit: No Status: Acute Plan: agree with lasix 20 mg IV bid continue to monitor input and output and electrolytes
[2024-01-24] MEDS: allopurinoL 300 MG TAB PO SCH (17:18)
--- NOTE | 2024-01-24 22:09 | P.PN ---
Date of Service: 01/24/24 Vital Signs Temp Pulse Resp BP Pulse Ox 97.5 F 73 17 176/74 H 92 01/24/24 20:00 01/24/24 20:00 01/24/24 20:00 01/24/24 20:00 01/24/24 20:00 Medications Albuterol Sulfate (Albuterol 2.5 Mg/3 Ml Neb Jessy) 2.5 mg NEB [id number] PRN PRN Reason: SHORTNESS OF BREATH Allopurinol (Allopurinol 300 Mg Tab) 300 mg PO DAILY AT SUPPER [facility] Last Admin: 01/24/24 17:18 Dose: 300 mg Aspirin (Aspirin Ec 81 Mg Tab) 81 mg PO DAILY [facility] Last Admin: 01/24/24 08:02 Dose: 81 mg Buspirone HCl (Buspirone Hcl 5 Mg Tablet) 10 mg PO TID [facility] Last Admin: 01/24/24 14:05 Dose: 10 mg Cetirizine HCl (Cetirizine Hcl 5 Mg Tablet) 10 mg PO DAILY [facility] Last Admin: 01/24/24 08:01 Dose: 10 mg Cholecalciferol (Vitamin D 1000 Unit Tab) 1,000 unit PO NOON [facility] Last Admin: 01/24/24 11:42 Dose: 1,000 unit Clonidine HCl (Clonidine Hcl 0.1 Mg Tab) 0.1 mg PO BID PRN PRN Reason: Goal to achieve SBP in comment Doxazosin Mesylate (Doxazosin 4 Mg Tab) 4 mg PO BID [facility] Last Admin: 01/24/24 07:58 Dose: 4 mg Escitalopram Oxalate (Escitalopram 20 Mg Tab) 10 mg PO DAILY [facility] Last Admin: 01/24/24 07:59 Dose: 10 mg Furosemide (Furosemide 20 Mg/ 2ml Vial) 20 mg IV BIDL [facility] Last Admin: 01/24/24 17:18 Dose: 20 mg Glucagon (Glucagon 1 Mg/Vial) 1 mg IM 1X PRN PRN Reason: HYPOGLYCEMIA Heparin Sodium (Porcine) (Heparin 5000 Unit/Ml 1 Ml Vial) 5,000 unit SQ Q12HR [facility] Last Admin: 01/24/24 08:03 Dose: 5,000 unit Hydralazine HCl (Hydralazine Hcl 20 Mg/Ml Vial) 10 mg IV Q4HP PRN PRN Reason: FOR SBP>160 OR DBP>100 [facility] Last Admin: 01/24/24 04:54 Dose: 10 mg Hydralazine HCl (Hydralazine Hcl 25 Mg Tablet) 50 mg PO TID [facility] Last Admin: 01/24/24 14:05 Dose: 50 mg Dextrose (Dextrose 10% Water Iv Soln.) 125 mls @ 0 mls/hr IV PRN PRN; Protocol PRN Reason: HYPOGLYCEMIA Insulin Human Regular (Insulin Regular (Human) 100 Unit/Ml) 0 unit SQ ACHS [facility]; Protocol Last Admin: 01/24/24 16:04 Dose: 2 unit Ipratropium [place] (Ipratropium Brom 0.5mg/2.5ml) 0.2 mg IH Q6H PRN PRN Reason: SHORTNESS OF BREATH Magnesium Oxide (Magnesium Oxide 400 Mg Tab) 400 mg PO NOON [facility] Last Admin: 01/24/24 11:41 Dose: 400 mg Montelukast Sodium (Montelukast 10 Mg Tab) 10 mg PO DAILY [facility] Last Admin: 01/24/24 08:03 Dose: 10 mg Nebivolol (Nebivolol Hcl 5 Mg Tab) 10 mg PO DAILY [facility] Last Admin: 01/24/24 07:57 Dose: 10 mg Assessment/ Plan: Nephrology No dyspnea No chest pain No acute events overnight Limited IH/ ROS due to mental status Vitals, medications, blood work and imaging reviewed in the chart General: In no apparent distress, Obese HEENT: Atraumatic Neck: Supple Respiratory: Diminished Cardiovascular: No edema, Regular rate/rhythm Gastrointestinal: Soft and benign, Non-distended Musculoskeletal: No clubbing, No contractures Integumentary: No rashes, No cyanosis Neurological: Normal speech Laboratory Data (last 24 hrs) 01/23/24 01/23/24 12:27 12:27 WBC 9.50 Hgb 10.1 L Hct 31.8 L Plt Count 181 Sodium 139 Potassium 4.4 BUN 36 H Creatinine 2.10 H Glucose 263 H Magnesium 1.8 Total Bilirubin 0.3 AST 12 L ALT < 14 Alkaline Phosphatase 64 Imagings Data: [id number] EXAMINATION: ONE VIEW CHEST XR CLINICAL INDICATION: Female, 78 years old.,Cough;Dyspnea TECHNIQUE: Frontal chest projection is submitted. Examination is limited by patient positioning and technique. COMPARISON: 12/21/2023 FINDINGS: The lungs are again hypoinflated. Patient rotation somewhat limits evaluation. Progressive central interstitial prominence and perihilar fluffy opacities. Blunting of the left costophrenic angle is again seen, may reflect atelectasis or small effusion. No pneumothorax or sizable effusion. The heart is normal in size. Mediastinal contours are un remarkable. IMPRESSION: Progressive central interstitial prominence which may relate to pulmonary edema. [id number] EXAMINATION: US RETROPERITONEUM CLINICAL INDICATION: [facility] MAIN rayne TECHNIQUE: Real-time ultrasonography of the abdomen was performed. COMPARISON: No prior exam. FINDINGS: RIGHT KIDNEY: Right renal length measurement: 9.3 cm. Normal in echogenicity and size. No calculus, solid mass or hydronephrosis. LEFT KIDNEY: Left renal length measurement: 8.9 cm. Normal in echogenicity and size. No calculus, solid mass or hydronephrosis. Mildly complex interpolar exophytic 1.3 cm cyst, appears stable. Anechoic superior pole 1.7 cm cyst. 1.1 cm parapelvic cyst. Mild bilateral perinephric fluid. URINARY BLADDER: Normal. ADDITIONAL FINDINGS: None. IMPRESSION: No acute or suspicious abnormalities. Stable left renal 1.3 cm mildly complex cyst and other benign-appearing cysts as above. Mild nonspecific perinephric fluid. [id number] LEFT VENTRICULAR WALL MOTION: NORMAL DOPPLER/COLOR FLOW: DIASTOLIC DYSFUNCTION COMMENTS: 1. NORMAL LEFT VENTRICULAR SYSTOLIC FUNCTION, EJECTION FRACTION 60-65%, NORMAL WALL MOTION 2. DIASTOLIC DYSFUNCTION 3. MILD ELEVATED FILLING PRESSURE (RIGHT ATRIAL PRESSURE 5-10 mmHg) Conclusions/Impression: Stage I RAYNE may be CRS CKD III with Proteinuria -No NSAIDs -Continue diuresis HTN with CKD/ CHF -Continue Nebivolol and Doxazosin -Continue Hydralazine Diastolic CHF, A/C -Continue Lasix DM II with CKD -RISS Hypoalbuminemia -Consider protein supplementation Anemia in chronic illness -Monitor H&H Hospitalist and Cardiology notes reviewed
[2024-01-25 06:08] LABS: Absolute Basophils 0.1 K/uL (0-0.5); Absolute Eosinophils 0.2 K/uL (0-0.5); Absolute Lymphocytes (CBC) 1.3 K/uL (0.7-4.9); Absolute Monocytes 0.7 K/uL (0.1-1.3); Absolute Neutrophil 6.8 K/uL (1.8-8.0); Basophils % 0.8 % (0-1.3); Eosinophils % 1.8 % (0-4.4); Hematocrit 31.9 % (36.0-45.0); Hemoglobin 10.4 g/dL (12.0-15.0); Lymphocytes % 14.6 % (15.3-44.8); MCH 30.4 pg (27.0-35.0); MCHC 32.7 g/dL (32.0-36.0); Monocytes % 7.4 % (3.3-12.3); Neutrophils % 75.4 % (41.7-73.7); Nucleated Red Blood Cells % 0.1 % (0-0); Platelets 211 thou/uL (152-406); RBC Red Blood Cell Count 3.43 M/uL (3.86-4.86); Red Cell Distribution Width 15.1 % (12.1-15.2)
[2024-01-25 06:21] LABS: Anion Gap 7.7 mEq/L (5.0-15.0); Potassium 3.7 mEq/L (3.5-5.1)
[2024-01-25] MEDS: FUROSEMIDE 20 MG TABLET PO SCH (09:38)
--- NOTE | 2024-01-25 10:17 | P.PN ---
Subjective Date of Service: 01/25/24 Chief Complaint: CHF exacerbation, RAYNE Subjective: No new changes, No C/O voiced, Tolerating diet, Ambulating, Improving Review of Systems 10-point ROS is otherwise unremarkable Physical Examination - Vital Signs Temperature: 97.5 F Blood Pressure: 170/74 Pulse: 63 Respirations: 17 Pulse Ox (%): 96 - Physical Exam General: Alert, In no apparent distress HEENT: Atraumatic, PERRLA, EOMI Neck: Supple, JVD not distended Respiratory: Clear to auscultation bilaterally, Normal air movement Cardiovascular: Regular rate/rhythm, Normal S1 S2 Gastrointestinal: Normal bowel sounds, No tenderness Musculoskeletal: No tenderness Integumentary: No rashes Neurological: Normal speech, Normal tone, Normal affect Lymphatics: No axilla or inguinal lymphadenopathy - Studies Medications List Reviewed: Yes Assessment And Plan - Current Problems (Diagnosis) (1) Acute CHF Current Visit: No Status: Acute Plan: switch lasix to 20 mg po daily continue Nebivolol, Hydralazine continue to monitor input and output and electrolytes
[2024-01-25 10:21] VITALS: BMI 34.7
[2024-01-25] MEDS: LOSARTAN POTASSIUM 50 MG TABLET PO SCH (12:46)
--- NOTE | 2024-01-25 16:09 | P.PN ---
Date of Service: 01/25/24 Subjective: Breathing well BP elevated-adjusting meds no acute events overnight ROS: 10 point ROS as noted above, otherwise negative Physical exam GEN: Alert, oriented x3, NAD HEENT: Normal conjunctiva, sclera anicteric CV: Regular rate and rhythm, no edema Pulm: Nonlabored respirations on nasal cannula ABD: Soft, nontender, nondistended MSK: No joint tenderness Integumentary: No rashes Neuro: Normal speech, normal affect Vitals reviewed Assessment: Acute on chronic systolic congestive heart failure Acute on chronic hypoxic respiratory failure COPD on chronic home O2 RAYNE Asymptomatic bacteriuria Diabetes mellitus type 2insulin-dependent Hypertension Hyperlipidemia Plan: Acute on chronic systolic congestive heart failure Acute on chronic hypoxic respiratory failure Continue PO lasix Supplemental oxygen as needed, titrated to home level Monitor renal function closely COPD on chronic home O2 As needed nebulizer treatments, supplemental oxygen RAYNE nephrology consultation following Monitor renal function closely Asymptomatic bacteriuria Patient denies any urinary symptoms at this time White blood cell count in normal limits Afebrile Will monitor for fevers, repeat CBC tomorrow Diabetes mellitus type 2insulin-dependent ACHS Accu-Chek, sliding scale insulin Hypertension Hyperlipidemia Continue home medications DVT PPX: Heparin subcu Code status: Full Discharge Plan: Home Plan to discharge in: 48 Hours Time Spent Managing Pts Care (In Minutes): 35
[2024-01-25] MEDS: ACETAMINOPHEN 325 MG TABLET PO PRN (16:11)
--- NOTE | 2024-01-25 20:56 | P.PN ---
Date of Service: 01/25/24 Vital Signs Temp Pulse Resp BP Pulse Ox 96.8 F 71 16 202/99 H 94 01/25/24 16:00 01/25/24 20:52 01/25/24 16:00 01/25/24 20:52 01/25/24 16:00 Medications Acetaminophen (Acetaminophen 325 Mg Tablet) 650 mg PO Q6H PRN PRN Reason: Pain scale 2-4 (Mild) Last Admin: 01/25/24 16:11 Dose: 650 mg Albuterol Sulfate (Albuterol 2.5 Mg/3 Ml Neb Jessy) 2.5 mg NEB [id number] PRN PRN Reason: SHORTNESS OF BREATH Allopurinol (Allopurinol 300 Mg Tab) 300 mg PO DAILY AT SUPPER [facility] Last Admin: 01/25/24 16:11 Dose: 300 mg Aspirin (Aspirin Ec 81 Mg Tab) 81 mg PO DAILY [facility] Last Admin: 01/25/24 09:37 Dose: 81 mg Buspirone HCl (Buspirone Hcl 5 Mg Tablet) 10 mg PO TID [facility] Last Admin: 01/25/24 20:52 Dose: 10 mg Cetirizine HCl (Cetirizine Hcl 5 Mg Tablet) 10 mg PO DAILY [facility] Last Admin: 01/25/24 09:38 Dose: 10 mg Cholecalciferol (Vitamin D 1000 Unit Tab) 1,000 unit PO NOON [facility] Last Admin: 01/25/24 12:00 Dose: 1,000 unit Clonidine HCl (Clonidine Hcl 0.1 Mg Tab) 0.1 mg PO BID PRN PRN Reason: Goal to achieve SBP in comment Doxazosin Mesylate (Doxazosin 4 Mg Tab) 4 mg PO BID [facility] Last Admin: 01/25/24 20:52 Dose: 4 mg Escitalopram Oxalate (Escitalopram 20 Mg Tab) 10 mg PO DAILY [facility] Last Admin: 01/25/24 09:38 Dose: 10 mg Furosemide (Furosemide 20 Mg Tablet) 20 mg PO DAILY [facility] Last Admin: 01/25/24 09:38 Dose: 20 mg Glucagon (Glucagon 1 Mg/Vial) 1 mg IM 1X PRN PRN Reason: HYPOGLYCEMIA Heparin Sodium (Porcine) (Heparin 5000 Unit/Ml 1 Ml Vial) 5,000 unit SQ Q12HR [facility] Last Admin: 01/25/24 20:52 Dose: 5,000 unit Hydralazine HCl (Hydralazine Hcl 20 Mg/Ml Vial) 10 mg IV Q4HP PRN PRN Reason: FOR SBP>160 OR DBP>100 MMHG Last Admin: 01/25/24 01:46 Dose: 10 mg Hydralazine HCl (Hydralazine Hcl 25 Mg Tablet) 50 mg PO TID [facility] Last Admin: 01/25/24 20:52 Dose: 50 mg Dextrose (Dextrose 10% Water Iv Soln.) 125 mls @ 0 mls/hr IV PRN PRN; Protocol PRN Reason: HYPOGLYCEMIA Insulin Human Regular (Insulin Regular (Human) 100 Unit/Ml) 0 unit SQ ACHS [facility]; Protocol Last Admin: 01/25/24 16:11 Dose: 2 unit Ipratropium [place] (Ipratropium Brom 0.5mg/2.5ml) 0.2 mg IH Q6H PRN PRN Reason: SHORTNESS OF BREATH Losartan Potassium (Losartan Potassium 50 Mg Tablet) 50 mg PO BID [facility] Last Admin: 01/25/24 20:52 Dose: 50 mg Magnesium Oxide (Magnesium Oxide 400 Mg Tab) 400 mg PO NOON [facility] Last Admin: 01/25/24 12:46 Dose: 400 mg Montelukast Sodium (Montelukast 10 Mg Tab) 10 mg PO DAILY [facility] Last Admin: 01/25/24 09:38 Dose: 10 mg Nebivolol (Nebivolol Hcl 5 Mg Tab) 10 mg PO DAILY [facility] Last Admin: 01/25/24 09:38 Dose: 10 mg Assessment/ Plan: Nephrology No dyspnea No chest pain No acute events overnight Limited IH/ ROS due to mental status Vitals, medications, blood work and imaging reviewed in the chart General: In no apparent distress, Obese HEENT: Atraumatic Neck: Supple Respiratory: Diminished Cardiovascular: No edema, Regular rate/rhythm Gastrointestinal: Soft and benign, Non-distended Musculoskeletal: No clubbing, No contractures Integumentary: No rashes, No cyanosis Neurological: Normal speech Laboratory Data (last 24 hrs) 01/23/24 01/23/24 12:27 12:27 WBC 9.50 Hgb 10.1 L Hct 31.8 L Plt Count 181 Sodium 139 Potassium 4.4 BUN 36 H Creatinine 2.10 H Glucose 263 H Magnesium 1.8 Total Bilirubin 0.3 AST 12 L ALT < 14 Alkaline Phosphatase 64 Imagings Data: [id number] EXAMINATION: ONE VIEW CHEST XR CLINICAL INDICATION: Female, 78 years old.,Cough;Dyspnea TECHNIQUE: Frontal chest projection is submitted. Examination is limited by patient positioning and technique. COMPARISON: 12/21/2023 FINDINGS: The lungs are again hypoinflated. Patient rotation somewhat limits evaluation. Progressive central interstitial prominence and perihilar fluffy opacities. Blunting of the left costophrenic angle is again seen, may reflect atelectasis or small effusion. No pneumothorax or sizable effusion. The heart is normal in size. Mediastinal contours are unremarkable. IMPRESSION: Progressive central interstitial prominence which may relate to pulmonary edema. [id number] EXAMINATION: US RETROPERITONEUM CLINICAL INDICATION: HS MAIN rayne TECHNIQUE: Real-time ultrasonography of the abdomen was performed. COMPARISON: No prior exam. FINDINGS: RIGHT KIDNEY: Right renal length measurement: 9.3 cm. Normal in echogenicity and size. No calculus, solid mass or hydronephrosis. LEFT KIDNEY: Left renal length measurement: 8.9 cm. Normal in echogenicity and size. No calculus, solid mass or hydronephrosis. Mildly complex interpolar exophytic 1.3 cm cyst, appears stable. Anechoic superior pole 1.7 cm cyst. 1.1 cm parapelvic cyst. Mild bilateral perinephric fluid. URINARY BLADDER: Normal. ADDITIONAL FINDINGS: None. IMPRESSION: No acute or suspicious abnormalities. Stable left renal 1.3 cm mildly complex cyst and other benign-appearing cysts as above. Mild nonspecific perinephric fluid. [id number] LEFT VENTRICULAR WALL MOTION: NORMAL DOPPLER/COLOR FLOW: DIASTOLIC DYSFUNCTION COMMENTS: 1. NORMAL LEFT VENTRICULAR SYSTOLIC FUNCTION, EJECTION FRACTION 60-65%, NORMAL WALL MOTION 2. DIASTOLIC DYSFUNCTION 3. MILD ELEVATED FILLING PRESSURE (RIGHT ATRIAL PRESSURE 5-10 mmHg) Conclusions/Impression: Stage I RAYNE may be CRS CKD III with Proteinuria -No NSAIDs -Continue diuresis HTN with CKD/ CHF -Continue Nebivolol and Doxazosin -Continue Hydralazine -Restart Losartan Diastolic CHF, A/C -Continue Lasix DM II with CKD -RISS Hypoalbuminemia -Consider protein supplementation Anemia in chronic illness -Monitor H&H Hospitalist and Cardiology notes reviewed Case reviewed with hospitalist team
[2024-01-26] MEDS: cloNIDine HCL 0.1 MG TAB PO PRN (03:43)
[2024-01-26 07:43] LABS: Absolute Eosinophils 0.1 K/uL (0-0.5); Absolute Lymphocytes (CBC) 1.3 K/uL (0.7-4.9); Absolute Monocytes 0.5 K/uL (0.1-1.3); Absolute Neutrophil 6.1 K/uL (1.8-8.0); Basophils % 0.5 % (0-1.3); Eosinophils % 1.5 % (0-4.4); Hemoglobin 10.5 g/dL (12.0-15.0); Lymphocytes % 16.3 % (15.3-44.8); MCH 30.4 pg (27.0-35.0); MCHC 32.8 g/dL (32.0-36.0); MCV 92.6 fL (80-100); MPV 9.6 fL (7.6-11.3); Monocytes % 6.3 % (3.3-12.3); Neutrophils % 75.4 % (41.7-73.7); Platelets 213 thou/uL (152-406); RBC Red Blood Cell Count 3.46 M/uL (3.86-4.86); Red Cell Distribution Width 15.1 % (12.1-15.2)
[2024-01-26 07:55] LABS: Anion Gap 7.9 mEq/L (5.0-15.0); Potassium 3.9 mEq/L (3.5-5.1)
[2024-01-26] MEDS: POTASSIUM 25 MEQ EFFERV TAB PO ONE (09:32)
[2024-01-26] MEDS: LOSARTAN POTASSIUM 50 MG TABLET PO SCH (09:32)
[2024-01-26 12:29] LABS: STOOL CONSISTENCY Liquid/Semi-Solid
[2024-01-26 12:30] LABS: C.diff Antigen/Toxin Ag neg : Tox neg (NEG : NEG); CDIFF INTERNAL NEG CONTROL White Background (WHITE BKGD)
--- NOTE | 2024-01-26 14:49 | P.PN ---
Date of Service: 01/26/24 Subjective: Breathing well Had a couple episodes of diarrhea today, testing for C. difficile no acute events overnight ROS: 10 point ROS as noted above, otherwise negative Physical exam GEN: Alert, oriented x3, NAD HEENT: Normal conjunctiva, sclera anicteric CV: Regular rate and rhythm, no edema Pulm: Nonlabored respirations on nasal cannula ABD: Soft, nontender, nondistended MSK: No joint tenderness Integumentary: No rashes Neuro: Normal speech, normal affect Vitals reviewed Assessment: Acute on chronic systolic congestive heart failure Acute on chronic hypoxic respiratory failure Diarrhea COPD on chronic home O2 RAYNE Asymptomatic bacteriuria Diabetes mellitus type 2insulin-dependent Hypertension Hyperlipidemia Plan: Acute on chronic systolic congestive heart failure Acute on chronic hypoxic respiratory failure Continue PO lasix Supplemental oxygen as needed, titrated to home level Monitor renal function closely Diarrhea C. difficile negative 2 stools today Monitor closely COPD on chronic home O2 As needed nebulizer treatments, supplemental oxygen RAYNE nephrology consultation following Monitor renal function closely Asymptomatic bacteriuria Patient denies any urinary symptoms at this time White blood cell count in normal limits Afebrile Will monitor for fevers, repeat CBC tomorrow Diabetes mellitus type 2insulin-dependent ACHS Accu-Chek, sliding scale insulin Hypertension Hyperlipidemia Continue home medications DVT PPX: Heparin subcu Code status: Full Discharge Plan: Home Plan to discharge in: 24 hours Time Spent Managing Pts Care (In Minutes): 35
--- NOTE | 2024-01-26 20:45 | P.PN ---
Date of Service: 01/26/24 Vital Signs Temp Pulse Resp BP Pulse Ox 97.3 F 62 16 162/64 H 90 L 01/26/24 16:00 01/26/24 16:04 01/26/24 16:00 01/26/24 16:04 01/26/24 16:00 Medications Acetaminophen (Acetaminophen 325 Mg Tablet) 650 mg PO Q6H PRN PRN Reason: Pain scale 2-4 (Mild) Last Admin: 01/25/24 16:11 Dose: 650 mg Albuterol Sulfate (Albuterol 2.5 Mg/3 Ml Neb Jessy) 2.5 mg NEB [id number] PRN PRN Reason: SHORTNESS OF BREATH Allopurinol (Allopurinol 300 Mg Tab) 300 mg PO DAILY AT SUPPER [facility] Last Admin: 01/26/24 16:04 Dose: 300 mg Aspirin (Aspirin Ec 81 Mg Tab) 81 mg PO DAILY [facility] Last Admin: 01/26/24 09:33 Dose: 81 mg Buspirone HCl (Buspirone Hcl 5 Mg Tablet) 10 mg PO TID [facility] Last Admin: 01/26/24 13:50 Dose: 10 mg Cetirizine HCl (Cetirizine Hcl 5 Mg Tablet) 10 mg PO DAILY [facility] Last Admin: 01/26/24 09:32 Dose: 10 mg Cholecalciferol (Vitamin D 1000 Unit Tab) 1,000 unit PO NOON [facility] Last Admin: 01/26/24 11:33 Dose: 1,000 unit Clonidine HCl (Clonidine Hcl 0.1 Mg Tab) 0.1 mg PO BID PRN PRN Reason: Goal to achieve SBP in comment Last Admin: 01/26/24 16:04 Dose: 0.1 mg Doxazosin Mesylate (Doxazosin 4 Mg Tab) 4 mg PO BID [facility] Last Admin: 01/26/24 09:31 Dose: 4 mg Escitalopram Oxalate (Escitalopram 20 Mg Tab) 10 mg PO DAILY [facility] Last Admin: 01/26/24 09:32 Dose: 10 mg Furosemide (Furosemide 20 Mg Tablet) 20 mg PO DAILY [facility] Last Admin: 01/26/24 09:32 Dose: 20 mg Glucagon (Glucagon 1 Mg/Vial) 1 mg IM 1X PRN PRN Reason: HYPOGLYCEMIA Heparin Sodium (Porcine) (Heparin 5000 Unit/Ml 1 Ml Vial) 5,000 unit SQ Q12HR [facility] Last Admin: 01/26/24 09:31 Dose: Not Given Hydralazine HCl (Hydralazine Hcl 20 Mg/Ml Vial) 10 mg IV Q4HP PRN PRN Reason: FOR SBP>160 OR DBP>100 MMHG Last Admin: 01/25/24 01:46 Dose: 10 mg Hydralazine HCl (Hydralazine Hcl 25 Mg Tablet) 50 mg PO TID [facility] Last Admin: 01/26/24 13:50 Dose: 50 mg Dextrose (Dextrose 10% Water Iv Soln.) 125 mls @ 0 mls/hr IV PRN PRN; Protocol PRN Reason: HYPOGLYCEMIA Insulin Human Regular (Insulin Regular (Human) 100 Unit/Ml) 0 unit SQ ACHS [facility]; Protocol Last Admin: 01/26/24 15:55 Dose: Not Given Ipratropium [place] (Ipratropium Brom 0.5mg/2.5ml) 0.2 mg IH Q6H PRN PRN Reason: SHORTNESS OF BREATH Losartan Potassium (Losartan Potassium 50 Mg Tablet) 50 mg PO BID [facility] Last Admin: 01/26/24 09:32 Dose: 50 mg Magnesium Oxide (Magnesium Oxide 400 Mg Tab) 400 mg PO NOON [facility] Last Admin: 01/26/24 11:33 Dose: 400 mg Montelukast Sodium (Montelukast 10 Mg Tab) 10 mg PO DAILY [facility] Last Admin: 01/26/24 09:32 Dose: 10 mg Nebivolol (Nebivolol Hcl 5 Mg Tab) 10 mg PO DAILY [facility] Last Admin: 01/26/24 09:32 Dose: 10 mg Assessment/ Plan: Nephrology No dyspnea No chest pain No acute events overnight Limited IH/ ROS due to mental status Vitals, medications, blood work and imaging reviewed in the chart General: In no apparent distress, Obese HEENT: Atraumatic Neck: Supple Respiratory: Normal resp effort Cardiovascular: No edema, Regular rate/rhythm Gastrointestinal: Soft and benign, Non-distended Musculoskeletal: No clubbing, No contractures Integumentary: No rashes, No cyanosis Neurological: No speech Laboratory Data (last 24 hrs) 01/23/24 01/23/24 12:27 12:27 WBC 9.50 Hgb 10.1 L Hct 31.8 L Plt Count 181 Sodium 139 Potassium 4.4 BUN 36 H Creatinine 2.10 H Glucose 263 H Magnesium 1.8 Total Bilirubin 0.3 AST 12 L ALT < 14 Alkaline Phosphatase 64 Imagings Data: [id number] EXAMINATION: ONE VIEW CHEST XR CLINICAL INDICATION: Female, 78 years old.,Cough;Dyspnea TECHNIQUE: Frontal chest projection is submitted. Examination is limited by patient positioning and technique. COMPARISON: 12/21/2023 FINDINGS: The lungs are again hypoinflated. Patient rotation somewhat limits evaluation. Progressive central interstitial prominence and perihilar fluffy opacities. Blunting of the left costophrenic angle is again seen, may reflect atelectasis or small effusion. No pneumothorax or sizable effusion. The heart is normal in size. Mediastinal contours are unremarkable. IMPRESSION: Progressive central interstitial prominence which may relate to pulmonary edema. [id number] EXAMINATION: US RETROPERITONEUM CLINICAL INDICATION: HS MAIN rayne TECHNIQUE: Real-time ultrasonography of the abdomen was performed. COMPARISON: No prior exam. FINDINGS: RIGHT KIDNEY: Right renal length measurement: 9.3 cm. Normal in echogenicity and size. No calculus, solid mass or hydronephrosis. LEFT KIDNEY: Left renal length measurement: 8.9 cm. Normal in echogenicity and size. No calculus, solid mass or hydronephrosis. Mildly complex interpolar exophytic 1.3 cm cyst, appears stable. Anechoic superior pole 1.7 cm cyst. 1.1 cm parapelvic cyst. Mild bilateral perinephric fluid. URINARY BLADDER: Normal. ADDITIONAL FINDINGS: None. IMPRESSION: No acute or suspicious abnormalities. Stable left renal 1.3 cm mildly complex cyst and other benign-appearing cysts as above. Mild nonspecific perinephric fluid. [id number] LEFT VENTRICULAR WALL MOTION: NORMAL DOPPLER/COLOR FLOW: DIASTOLIC DYSFUNCTION COMMENTS: 1. NORMAL LEFT VENTRICULAR SYSTOLIC FUNCTION, EJECTION FRACTION 60-65%, NORMAL WALL MOTION 2. DIASTOLIC DYSFUNCTION 3. MILD ELEVATED FILLING PRESSURE (RIGHT ATRIAL PRESSURE 5-10 mmHg) Conclusions/Impression: Stage I RAYNE may be CRS CKD III with Proteinuria -No NSAIDs -Continue diuresis HTN with CKD/ CHF -Continue Nebivolol and Doxazosin -Continue Hydralazine -Continue Losartan Diastolic CHF, A/C -Continue Lasix DM II with CKD -RISS Hypoalbuminemia -Consider protein supplementation Anemia in chronic illness -Monitor H&H Hospitalist note reviewed Case reviewed with hospitalist team
[2024-01-27 00:19] VITALS: O2SAT 96
[2024-01-27 08:49] VITALS: BP 154/66
--- NOTE | 2024-01-27 08:49 | P.DS ---
Admission Date: 01/23/24 Discharge Date: 01/27/24 Disposition: TRANSFER TO [facility] Discharge Condition: GOOD Reason for Admission: CHF exacerbation, RAYNE Brief History of Present Illness: 78-year-old female with history of chronic systolic congestive heart failure, COPD on home O2, diabetes mellitus type 2insulin-dependent, sleep apnea, hyperlipidemia presents to the emergency department with chief complaint of shortness of breath. intermediate staff report that she is requiring more oxygen than her baseline, previously per chart review she was on 4 L per nasal cannula, they had to increase to 5 to 6 L per nasal cannula and she is still satting in the upper 80s per report. She also reportedly had some lower extremity edema. She was evaluated in the emergency department found to have an RAYNE with a creatinine of 2.1 he was 3096 and chest x-ray showed progressive central interstitial prominence. She was given IV Lasix in the ED, ED wishes to admit for suspected CHF exacerbation, RAYNE Hospital Course: Assessment: Acute on chronic systolic congestive heart failure Acute on chronic hypoxic respiratory failure Diarrhea COPD on chronic home O2 RAYNE Asymptomatic bacteriuria Diabetes mellitus type 2insulin-dependent Hypertension Hyperlipidemia Patient was admitted to the hospital for CHF exacerbation, was reportedly hypoxic on her nasal cannula oxygen at care home. She was initially diuresed with IV Lasix and had improvement in her symptoms, today she is 96% on 2 L per nasal cannula. Her creatinine on admission was 2.1, today it is 1.96, her baseline creatinine appears to be around 1.7, 1.8. She was seen by nephrology and cardiology during the hospitalization, initially her losartan and spironolactone were held given her mild elevation in creatinine over baseline, her losartan was restarted and her blood pressure has been better controlled. We are still holding her spironolactone at this time. Nephrology obtained a urine specimen which did show bacteriuria, urine culture showed Proteus which was sensitive to Augmentin, cephalosporins, Unasyn, Zosyn. Patient denied any urinary symptoms, she remained afebrile with normal white blood cell count, appears to have asymptomatic bacteriuria, she had recently completed a course of Cipro as well. We will hold off on treating the asymptomatic bacteriuria at this time. If patient develops symptoms or fever/leukocytosis would recommend treatment. Patient stable [facility] at this time Vital Signs/Physical Exam: Temp Pulse Resp BP Pulse Ox 97.1 F 56 16 145/60 H 95 01/27/24 04:00 01/27/24 04:00 01/27/24 04:00 01/27/24 04:00 01/27/24 04:00 General: Alert, In no apparent distress, Oriented x3, Other (very [place]) HEENT: Atraumatic, PERRLA, EOMI Neck: Supple, JVD not distended Respiratory: Clear to auscultation bilaterally, Normal air movement, Other (On NC) Cardiovascular: Regular rate/rhythm, Normal S1 S2 Gastrointestinal: Normal bowel sounds, No tenderness Musculoskeletal: No tenderness Integumentary: No rashes Neurological: Normal speech, Normal tone, Normal affect Laboratory Data at Discharge: WBC 8.10 thou/uL (4.3-10.9) 01/26/24 07:35 Hgb 10.5 g/dL (12.0-15.0) L 01/26/24 07:35 Hct 32.0 % (36.0-45.0) L 01/26/24 07:35 Plt Count 213 thou/uL (152-406) 01/26/24 07:35 Sodium 138 mEq/L (136-145) 01/26/24 07:35 Potassium 3.9 mEq/L (3.5-5.1) 01/26/24 07:35 BUN 48 mg/dL (7-18) H 01/26/24 07:35 Creatinine 1.96 mg/dL (0.55-1.02) H 01/26/24 07:35 Glucose 210 mg/dL (74-106) H 01/26/24 07:35 Uric Acid 4.2 mg/dL (2.6-6.0) 01/24/24 05:33 Phosphorus 3.9 mg/dL (2.5-4.9) 01/24/24 05:33 Magnesium 1.8 mg/dL (1.6-2.4) 01/23/24 12:27 Total Bilirubin 0.3 mg/dL (0.2-1.0) 01/23/24 12:27 AST 12 U/L (15-37) L 01/23/24 12:27 ALT < 14 U/L (13-56) 01/23/24 12:27 Alkaline Phosphatase 64 U/L (45-117) 01/23/24 12:27 Home Medications: Allopurinol 300 mg PO DAILY AT SUPPER 09/17/23 Aspirin [[place]] 81 mg PO DAILY 09/17/23 Buspirone HCl [Buspar] 10 mg PO TID 09/17/23 Cetirizine HCl [Zyrtec*] 10 mg PO DAILY 09/17/23 Cholecalciferol (Vitamin D3) [Vitamin D3] 1,000 units PO NOON 09/17/23 Doxazosin Mesylate 4 mg PO BID 09/17/23 Escitalopram [Lexapro*] 10 mg PO DAILY 09/17/23 Gabapentin [Neurontin*] 300 mg PO BID 09/17/23 Hydralazine HCl 50 mg PO TID 09/17/23 Insulin Glargine,Hum.rec.anlog [Lantus] 10 units SQ DAILY 09/17/23 Magnesium Oxide [Magnesium] 400 mg PO NOON 09/17/23 Montelukast [Singulair*] 10 mg PO DAILY 09/17/23 Furosemide [Lasix*] 20 mg PO DAILY 30 Days #30 tab 11/22/23 Losartan Potassium [Cozaar*] 50 mg PO BID 11/22/23 Nebivolol HCl [Bystolic*] 10 mg PO DAILY tab 11/22/23 cloNIDine HCL [Catapres*] 0.1 mg PO BID PRN 30 Days #60 tab 11/22/23 Ipratropium Neb [Atrovent*] 0.2 mg IH Q6H PRN 30 Days #120 ml 12/22/23 Physician Discharge Instructions: Patient was admitted to the hospital for CHF exacerbation, was reportedly hypoxic on her nasal cannula oxygen at care home. She was initially diuresed with IV Lasix and had improvement in her symptoms, today she is 96% on 2 L per nasal cannula. Her creatinine on admission was 2.1, today it is 1.96, her baseline creatinine appears to be around 1.7, 1.8. She was seen by nephrology and cardiology during the hospitalization, initially her losartan and spironolactone were held given her mild elevation in creatinine over baseline, her losartan was restarted and her blood pressure has been better controlled. We are still holding her spironolactone at this time. Nephrology obtained a urine specimen which did show bacteriuria, urine culture showed Proteus which was sensitive to Augmentin, cephalosporins, Unasyn, Zosyn. Patient denied any urinary symptoms, she remained afebrile with normal white blood cell count, appears to have asymptomatic bacteriuria, she had recently completed a course of Cipro as well. We will hold off on treating the asymptomatic bacteriuria at this time. If patient develops symptoms or fever/leukocytosis would recommend treatment. [facility] time Diet: ADA Activity: Bedrest Followup: NONE,NONE [Primary Care Provider] - 1 Week Time spent managing pt's care (in minutes): 35
[2024-01-27 12:22] VITALS: TEMP 97.5
--- NOTE | 2024-01-27 13:13 | PN ---
Date of Progress Note: 01/27/2024 Subjective: Patient was seen and examined at bedside. She is doing okay. Denies any complaints. Objective: Vital Signs: Have been reviewed and are stable. General: She appears in no acute distress. Lungs: Clear. Abdomen: Soft. Extremities: Without any evidence of edema. Laboratory Data: None obtained from this morning. Current Medications: Have been reviewed. Impression: 1.Acute on chronic renal failure secondary to underlying cardiorenal syndrome, currently with stable renal function. The patient will be discharged on oral Lasix at this time. Low sodium . 2.Asymptomatic bacteriuria. At this time, no antibiotics are being given because of asymptomatic na ture. 3.Hypoalbuminemia. Continue protein supplementation. Plan: Overall, patient is clinically stable. Okay to be discharged from Nephrology standpoint on or al diuretics. Renal function has overall stabilized. VV/MODL Voice ID: [id number] Report ID: [id number]
== END 2024-01-27 14:07 | DRG 682 ==
LOC: ER 11:58 → ERHOLD 14:09 → 2ND 15:49
PROVIDERS: ADMIT Hospitalist; ATTEND Hospitalist
DX: N17.9 Acute kidney failure, unspecified (principal); I50.23 Acute on chronic systolic (congestive) heart failure; J96.21 Acute and chronic respiratory failure with hypoxia; I13.0 Hypertensive heart and chronic kidney disease with heart failure and stage 1 through stage 4 chronic kidney disease, or unspecified chronic kidney disease; N18.30 Chronic kidney disease, stage 3 unspecified; E11.22 Type 2 diabetes mellitus with diabetic chronic kidney disease; D63.1 Anemia in chronic kidney disease; E78.00 Pure hypercholesterolemia, unspecified; E88.09 Other disorders of plasma-protein metabolism, not elsewhere classified; J44.9 Chronic obstructive pulmonary disease, unspecified; F03.90 Unspecified dementia, unspecified severity, without behavioral disturbance, psychotic disturbance, mood disturbance, and anxiety; R19.7 Diarrhea, unspecified; R82.71 Bacteriuria; Z79.4 Long term (current) use of insulin; Z99.81 Dependence on supplemental oxygen; Z79.82 Long term (current) use of aspirin; Z79.899 Other long term (current) drug therapy
CPT/HCPCS: 36415; 71045; 76770; 80048; 80076; 81001; 82043; 82550; 82570; 82947; 83735; 83880; 84100; 84156; 84484; 84550; 85025; 87077; 87086; 87088; 87186; 87324; 93005; 96374; 99285; J0360; J1644; J1940

== ENCOUNTER 2024-02-11 12:26 | Inpatient (IN) | payer OTHER ==
[2024-02-11 13:35] LABS: Absolute Basophils 0.1 K/uL (0-0.5); Absolute Lymphocytes (CBC) 1.2 K/uL (0.7-4.9); Absolute Monocytes 0.8 K/uL (0.1-1.3); Absolute Neutrophil 11.8 K/uL (1.8-8.0); Basophils % 0.4 % (0-1.3); Eosinophils % 0.1 % (0-4.4); Hematocrit 33.5 % (36.0-45.0); Hemoglobin 10.3 g/dL (12.0-15.0); Lymphocytes % 8.4 % (15.3-44.8); MCH 29.8 pg (27.0-35.0); MCHC 30.8 g/dL (32.0-36.0); MCV 96.6 fL (80-100); MPV 10.5 fL (7.6-11.3); Monocytes % 5.6 % (3.3-12.3); Neutrophils % 85.5 % (41.7-73.7); Platelets 177 thou/uL (152-406); RBC Red Blood Cell Count 3.47 M/uL (3.86-4.86); Red Cell Distribution Width 15.9 % (12.1-15.2)
--- NOTE | 2024-02-11 13:48 | RAD REPORT ---
EXAM: Chest Single View HISTORY: AMS COMPARISON: 01/23/2024 FINDINGS: LUNGS/PLEURA: Moderate left pleural effusion. Pulmonary edema which is fairly similar to 01/23/2024. MEDIASTINUM: The mediastinal silhouette is within normal limits. CARDIAC: Cardiomegaly. UPPER ABDOMEN: No significant abnormality. BONES: No acute fracture. LINES/TUBES/OTHER: N/A IMPRESSION: Pulmonary edema with moderate left effusion and presumably underlying atelectasis.
[2024-02-11 13:53] LABS: Albumin 2.9 g/dL (3.4-5.0); Albumin/Globulin Ratio 0.6 (1.1-1.8); Anion Gap 7.1 mEq/L (5.0-15.0); Bilirubin Total 0.6 mg/dL (0.2-1.0); Globulin 4.6 g/dL (2.3-3.5); Potassium 4.1 mEq/L (3.5-5.1); Protein, Total 7.5 g/dL (6.4-8.2)
[2024-02-11 14:08] LABS: SARS-CoV-2 Antigen CONTROL BLUE LINE VIS/BG OK; SARS-CoV-2 Antigen Rapid Res Negative (Negative)
[2024-02-11 15:04] LABS: Specific Gravity 1.012 (1.005-1.030); Sqamous Epithelial None Seen /HPF (None Seen); Urine Bacteria <20 /HPF (<20); Urine Bilirubin NEGATIVE (Negative); Urine Blood 1+ (Negative); Urine Clarity Extremely Turbid (Clear); Urine Color Light-Orange (Yellow); Urine Crystals Unidentified Moderate /HPF (None Seen); Urine Culture Reflex Order REFLEXED; Urine Glucose NEGATIVE (Negative); Urine Ketones NEGATIVE (Negative); Urine Microscopic Reflex YN ORDER UMIC; Urine Mucus Slight /HPF (None Seen); Urine Nitrite NEGATIVE (Negative); Urine Protein 2+ (Negative); Urine RBC >50 /HPF (None Seen); Urine Urobilinogen Normal (Normal); Urine WBC >50 /HPF (<5); Urine WBC Clump Many /HPF (None Seen)
[2024-02-11] MEDS ORDERED: NA CHLORIDE 0.9% 100 ML ONE (16:15)
--- NOTE | 2024-02-11 16:15 | EDPHYS ---
Physician Documentation [facility] Name: Kaitlynn Snider Age: 78 yrs Sex: Female : 1945 Arrival Date: 02/11/2024 Time: 12:26 Bed 6 Private MD: ED Physician Fouzia De Jesus HPI: 02/10 13:06 This 78 yrs old Female presents to ER via EMS with complaints of Altered Mental Status. sp3 13:07 78-year-old female with history of COPD, diabetes, hypertension, recent UTI now sp3 presents to the ED sent from shelter via EMS for perceived altered mental status. Possible crackles in the lungs and "more sleepy than normal" as history from EMS. Patient hard of hearing and with probable early dementia. Difficulty time communicating. ROS, history and physical limited secondary to this. Patient states no to any complaints when asked.. Historical: - Allergies: 13:07 No Known Allergies; tm6 - PMHx: 13:07 Anxiety; Diabetes - NIDDM; COPD; High Cholesterol; Hypertension; Irritable bowel tm6 syndrome; Major Depressive Disorder; osteoarthritis; Sleep Apnea; - Immunization history:: Flu vaccine is up to date. - Infectious Disease History:: Denies. - Social history:: Smoking status: unknown. ROS: 13:08 Constitutional: Negative for fever, chills, and weight loss, Eyes: Negative for injury, sp3 pain, redness, and discharge, Neck: Negative for injury, pain, and swelling, Cardiovascular: Negative for chest pain, palpitations, and edema, Abdomen/GI: Negative for abdominal pain, nausea, vomiting, diarrhea, and constipation, Psych: Negative for depression, anxiety, suicide ideation, homicidal ideation, and hallucinations, 13:08 Unable to obtain ROS due to altered mental status, Exam: 13:08 Constitutional: This is a well developed, well nourished patient who is awake, alert, sp3 and in no acute distress. Head/Face: Normocephalic, atraumatic. Eyes: Pupils equal round and reactive to light, extra-ocular motions intact. Lids and lashes normal. Conjunctiva and sclera are non-icteric and not injected. Cornea within normal limits. Periorbital areas with no swelling, redness, or edema. Neck: Trachea midline, no thyromegaly or masses palpated, and no cervical lymphadenopathy. Supple, full range of motion without nuchal rigidity, or vertebral point tenderness. No Meningismus. Chest/axilla: Normal chest wall appearance and motion. Nontender with no deformity. No lesions are appreciated. Cardiovascular: Regular rate and rhythm with a normal S1 and S2. No gallops, murmurs, or rubs. Normal PMI, no JVD. No pulse deficits. Respiratory: Lungs have equal breath sounds bilaterally, clear to auscultation and percussion. No rales, rhonchi or wheezes noted. No increased work of breathing, no retractions or nasal flaring. Abdomen/GI: Soft, non-tender, with normal bowel sounds. No distension or tympany. No guarding or rebound. No evidence of tenderness throughout. Back: No spinal tenderness. No costovertebral tenderness. Full range of motion. Skin: Warm, dry with normal turgor. Normal color with no rashes, no lesions, and no evidence of cellulitis. MS/ Extremity: Pulses equal, no cyanosis. Neurovascular intact. Full, normal range of motion. Neuro: Awake and alert, GCS 15, oriented to person, place, time, and situation. Cranial nerves II-XII grossly intact. Motor strength 5/5 in all extremities. Sensory grossly intact. Cerebellar exam normal. Normal gait. 14:32 ECG was reviewed by the Attending Physician. EKG demonstrates normal sinus rhythm at 63 sp3 bpm with normal intervals, normal QRS, normal axis, poor R wave progression with diffuse ST's ST changes without evidence of acute ischemia. Vital Signs: 12:41 BP 125 / 55; Pulse 65; Resp 18; Temp 98.7(O); Pulse Ox 90% on R/A; MAP 76 mmHg; tm6 12:44 Pulse Ox 94% on 2 lpm NC; tm6 14:33 BP 164 / 125; Pulse 71; Pulse Ox 96% on 1 lpm NC; tm6 15:29 BP 139 / 126; Pulse 70; Pulse Ox 97% on 1 lpm NC; MAP 132 mmHg; tm6 19:00 BP 153 / 117; Pulse 88; Resp 18; Pulse Ox 95% ; cp4 20:00 BP 179 / 123; Pulse 79; Resp 18; Pulse Ox 95% ; cp4 22:00 BP 156 / 114; Pulse 76; Resp 18; Pulse Ox 96% ; cp4 MDM: 12:38 Medical Screening Exam initiated sp3 13:08 Data reviewed: vital signs, nurses notes, old medical records, lab test result(s), EKG, sp3 radiologic studies. ED course: 78-year-old female with increased Rales and sleepiness. Patient awake and alert in the ED. Differential diagnosis includes pneumonia, bronchitis, respiratory infection, pulmonary edema, UTI, among others including electrolyte disturbance. Workup will include chest x-ray, EKG, UA, general labs and supportive care. Disposition pending workup and patient course. EMS also reported that blood sugar was at 400 so we will follow this and assess for any DKA or other anion gap.. 12 12:57 Order name: Blood Culture Adult (2) sp3 02/10 12:57 Order name: CBC with Diff; Complete Time: 13:51 sp3 02/10 12:57 Order name: CMP; Complete Time: 16:12 sp3 02/10 12:57 Order name: Lactate w/ 2H reflex if indic.; Complete Time: 16:12 sp3 02/10 12:57 Order name: Urinalysis w/ reflexes; Complete Time: 16:12 sp3 02/10 12:57 Order name: SARS RAPID; Complete Time: 16:12 sp3 02/10 12:57 Order name: Flu; Complete Time: 16:12 sp3 02/10 14:05 Order name: Ghost Lactate-NO COLLECT Timer; Complete Time: 16:12 EDMS 02/10 15:07 Order name: Urine Culture EDMS 02/10 17:00 Order name: Lactate Sepsis 2 HR Follow-up EDMS 02/10 12:57 Order name: Chest Single View XRAY; Complete Time: 13:51 sp3 02/10 16:32 Order name: Head Brain Wo Cont CT la1 02/10 16:32 Order name: CT Abd/Pelvis - Without Contrast la1 02/10 17:32 Order name: CT EDMS 02/10 17:43 Order name: CT EDMS 02/10 12:57 Order name: Cardiac monitoring; Complete Time: 13:32 sp3 02/10 12:57 Order name: EKG - Nurse/Tech; Complete Time: 13:45 sp3 02/10 12:57 Order name: IV Saline Lock - Large Bore; Complete Time: 13:35 sp3 02/10 12:57 Order name: Labs collected and sent; Complete Time: 13:35 sp3 12 12:57 Order name: O2 Per Protocol; Complete Time: 13:32 sp3 12 12:57 Order name: O2 Sat Monitoring; Complete Time: 13:32 sp3 12 12:57 Order name: Vital Signs; Complete Time: 13:32 sp3 Administered Medications: 16:32 Drug: Cefepime IVPB 1 grams IVPB at 200 ml/hr once over 30 mins; (mix in NS 100 mL) tm6 Route: IVPB; Rate: 200 ml/hr; Infused Over: 30 mins; Site: right antecubital; 18:58 Follow up: Response: No adverse reaction; IV Status: Completed infusion; IV Intake: tm6 100ml 16:33 Drug: NS 0.9% IV 1000 ml IV at 1 bolus Per protocol; to be given as a bolus over 60 tm6 minutes Route: IV; Rate: 1 bolus; Site: right antecubital; 18:58 Follow up: Response: No adverse reaction; IV Status: Completed infusion; IV Intake: tm6 1000ml Disposition Summary: 02/11/24 16:14 Hospitalization Ordered Notes: Hospitalization Status: Inpatient Admission sp3 Provider: Barrington Fraser sp3 Location: Telemetry/MedSurg (Inpatient) sp3 Condition: Stable sp3 Problem: an acute exacerbation sp3 Symptoms: have worsened sp3 Bed/Room Type: Standard sp3 Room Assignment: [facility](02/11/24 19:43) sp Diagnosis - Urosepsis, UTI sp3 Forms: - Medication Reconciliation Form sp3 - SBAR form sp3 - Leadership Thank You Letter sp3 Signatures: Dispatcher [employer] EDMS Loyda Pack Setul, MD MD sp3 Rose Hardin RN RN tm6 Corrections: (The following items were deleted from the chart) 12:57 12:57 BLOOD CULTURE*+BA.LAB.BRZ ordered. EDMS EDMS 12:57 12:57 CBC+H.LAB.BRZ ordered. EDMS EDMS 12:57 12:57 COMPREHENSIVE METABOLIC PANEL+C.LAB.BRZ ordered. EDMS EDMS 12:57 12:57 LACTATE+C.LAB.BRZ ordered. EDMS EDMS 12:57 12:57 Urinalysis+U.LAB.BRZ ordered. EDMS EDMS 12:57 12:57 SARS-COV-2 Antigen Rapid+I.LAB.BRZ ordered. EDMS EDMS 12:57 12:57 Influenza Screen (A \\T\\ B)+BA.LAB.BRZ ordered. EDMS EDMS 12:58 12:58 Chest Single View+RAD.RAD.BRZ ordered. EDMS EDMS 19:29 16:14 sp3 sp 19:43 19:29 402 sp sp
--- NOTE | 2024-02-11 16:15 | ER ---
Nurse's Notes [facility] Name: Kaitlynn Snider Age: 78 yrs Sex: Female : 1945 Arrival Date: 02/11/2024 Time: 12:26 Bed 6 Private MD: Diagnosis: Urosepsis, UTI Presentation: 02/10 12:41 Chief complaint: EMS states: Ashutosh called stating patient is altered. Ashutosh said tm6 lung sounds were crackles, so gave albuterol treatment. Patient recently treated for UTI. Upon EMS arrival, patient not responsive, though seemed like in a deep sleep. Patient hard of hearing, not speaking much. Coronavirus screen: Client denies travel out of the [place] in the last 14 days. Ebola Screen: Patient negative for fever greater than or equal to 101.5 degrees Fahrenheit, and additional compatible Ebola Virus Disease symptoms Patient denies exposure to infectious person. Patient denies travel to an Ebola-affected area in the 21 days before illness onset. No symptoms or risks identified at this time. 12:41 Method Of Arrival: EMS: [facility] tm6 12:44 Acuity: RHINA 2 hb Triage Assessment: 13:07 General: Appears in no apparent distress. Behavior is cooperative, quiet. Pain: Unable tm6 to use pain scale. Patient is disoriented. EENT: No signs and/or symptoms were reported regarding the EENT system. Neuro: Level of Consciousness is awake, alert, obeys commands, Oriented to not speaking. NF reporting AMS. Cardiovascular: Patient's skin is warm and dry. Respiratory: Airway is patent Respiratory effort is even, unlabored, Respiratory pattern is regular, symmetrical. GI: Abdomen is round. : No signs and/or symptoms were reported regarding the genitourinary system. : Parent/caregiver report the patient having NF reported recent UTI. Derm: No signs and/or symptoms reported regarding the dermatologic system. Musculoskeletal: No signs and/or symptoms reported regarding the musculoskeletal system. 13:07 Respiratory: Reports cough that is non-productive. tm6 Historical: - Allergies: 13:07 No Known Allergies; tm6 - PMHx: 13:07 Anxiety; Diabetes - NIDDM; COPD; High Cholesterol; Hypertension; Irritable bowel tm6 syndrome; Major Depressive Disorder; osteoarthritis; Sleep Apnea; - Immunization history:: Flu vaccine is up to date. - Infectious Disease History:: Denies. - Social history:: Smoking status: unknown. Screenin:09 [facility] ED Fall Risk Assessment (Adult) History of falling in the last 3 months, tm6 including since admission No falls in past 3 months (0 pts) Confusion or Disorientation Yes (5 pts) Intoxicated or Sedated No (0 pts) Impaired Gait Yes (1 pt) Mobility Assist Device Used Yes (1 pt) Altered Elimination No (0 pt) Score/Fall Risk Level 3 or more points = High Risk Oriented to surroundings, Maintained a safe environment, Educated pt \T\ family on fall prevention, incl call for assistance when getting out of bed. Abuse screen: Denies threats or abuse. Denies injuries from another. Nutritional screening: No deficits noted. Tuberculosis screening: No symptoms or risk factors identified. Assessment: 13:09 Reassessment: see triage assessment. tm6 14:34 Reassessment: Patient appears in no apparent distress at this time. No changes from tm6 previously documented assessment. 15:30 Reassessment: Patient appears in no apparent distress at this time. No changes from tm6 previously documented assessment. 19:10 General: Appears in no apparent distress. comfortable. Pain: Denies pain. Neuro: Level cp4 of Consciousness is awake, alert, Oriented to none. 19:10 Cardiovascular: Patient's skin is warm and dry. Respiratory: Airway is patent cp4 Respiratory effort is even, unlabored. GI: No signs and/or symptoms were reported involving the gastrointestinal system. : No signs and/or symptoms were reported regarding the genitourinary system. EENT: No signs and/or symptoms were reported regarding the EENT system. Derm: No signs and/or symptoms reported regarding the dermatologic system. Musculoskeletal: No signs and/or symptoms reported regarding the musculoskeletal system. 20:00 Reassessment: Patient appears in no apparent distress at this time. Patient and/or cp4 family updated on plan of care and expected duration. Pain level reassessed. 21:00 Reassessment: Patient appears in no apparent distress at this time. Patient and/or cp4 family updated on plan of care and expected duration. Pain level reassessed. 22:00 Reassessment: Patient appears in no apparent distress at this time. Patient and/or cp4 family updated on plan of care and expected duration. Pain level reassessed. Vital Signs: 12:41 BP 125 / 55; Pulse 65; Resp 18; Temp 98.7(O); Pulse Ox 90% on R/A; MAP 76 mmHg; tm6 12:44 Pulse Ox 94% on 2 lpm NC; tm6 14:33 BP 164 / 125; Pulse 71; Pulse Ox 96% on 1 lpm NC; tm6 15:29 BP 139 / 126; Pulse 70; Pulse Ox 97% on 1 lpm NC; MAP 132 mmHg; tm6 19:00 BP 153 / 117; Pulse 88; Resp 18; Pulse Ox 95% ; cp4 20:00 BP 179 / 123; Pulse 79; Resp 18; Pulse Ox 95% ; cp4 22:00 BP 156 / 114; Pulse 76; Resp 18; Pulse Ox 96% ; cp4 ED Course: 12:35 Patient arrived in ED. eb 12:35 Fouzia De Jesus MD is Attending Physician. sp3 12:40 Rose Hardin, RN is Primary Nurse. tm6 13:07 Arm band placed on right wrist. tm6 13:09 Patient has correct armband on for positive identification. Bed in low position. Call tm6 light in reach. Side rails up X 1. Provided Education on: use of call landeros; plan of care. Client placed on continuous cardiac and pulse oximetry monitoring. NIBP monitoring applied. youth nutritional monitor on. Pulse ox on. NIBP on. Noise minimized. Warm blanket given. Pillow given. 13:32 Chest Single View XRAY In Process Unspecified. EDMS 13:35 Initial lab(s) drawn, by vt, sent to lab. Inserted saline lock: 20 gauge in right em1 antecubital area, using aseptic technique. Blood collected. Flushed with 10 mL NS. 13:45 SARS RAPID Sent. tm6 13:45 Flu Sent. tm6 13:45 EKG done, by ED staff, reviewed by Rose Hardin RN. tm6 14:50 Urinalysis w/ reflexes Sent. tm6 14:50 Straight cath inserted, using sterile technique, 14 Fr. Returned cloudy urine. Patient tm6 tolerated well. 15:01 Triage completed. hb 16:14 Barrington Fraser MD is Hospitalizing Provider. sp3 18:20 Inserted saline lock: 20 gauge in right forearm, using aseptic technique. ,using hb aseptic technique. US GUIDED Blood collected. Flushed with 10 mL NS. 19:10 No provider procedures requiring assistance completed. cp4 22:38 Patient admitted, IV remains in place. cp4 Administered Medications: 16:32 Drug: Cefepime IVPB 1 grams IVPB at 200 ml/hr once over 30 mins; (mix in NS 100 mL) tm6 Route: IVPB; Rate: 200 ml/hr; Infused Over: 30 mins; Site: right antecubital; 18:58 Follow up: Response: No adverse reaction; IV Status: Completed infusion; IV Intake: tm6 100ml 16:33 Drug: NS 0.9% IV 1000 ml IV at 1 bolus Per protocol; to be given as a bolus over 60 tm6 minutes Route: IV; Rate: 1 bolus; Site: right antecubital; 18:58 Follow up: Response: No adverse reaction; IV Status: Completed infusion; IV Intake: tm6 1000ml Medication: 13:09 VIS not applicable for this client. tm6 Intake: 18:58 IV: 100ml; Total: 100ml. tm6 18:58 IV: 1000ml; Total: 1100ml. tm6 Outcome: 16:14 Decision to Hospitalize by Provider. sp3 22:38 Admitted to Med/surg accompanied by tech, via stretcher, with chart, cp4 22:38 Condition: stable 22:38 Instructed on the need for admit, 22:39 Patient left the ED. cp4 Signatures: Dispatcher [employer] EDValentin Gilbert em1 Anay Pressley RN RN Emily Márquez Fouzia De Jesus MD MD sp3 Hermelinda Mixon cp4 Rose Hardin RN RN tm6 Corrections: (The following items were deleted from the chart) 15:30 15:29 BP 139 / 126; Pulse 70bpm; Pulse Ox 97% RA; MAP 132 mmHg; tm6 tm6
[2024-02-11] MEDS ORDERED: NA CHLORIDE 0.9% 1,000 ML ONE (16:16)
[2024-02-11] MEDS ORDERED: CEFEPIME 1 GM/VIAL ONE (16:16)
--- NOTE | 2024-02-11 17:12 | P.HP ---
Certification for Inpatient Patient admitted to: Inpatient With expected LOS: >2 Midnights Patient will require the following post-hospital care: None Practitioner: I am a practitioner with admitting privileges, knowledge of patient current condition, hospital course, and medical plan of care. Services: Services provided to patient in accordance with Admission requirements found in Title 42 Section 412.3 of the Code of Federal Regulations Patient History Date of Service: 02/11/24 Reason for admission: Severe sepsis, UTI History of Present Illness: 78-year-old female with history of chronic systolic congestive heart failure, COPD on home O2, diabetes mellitus type 2insulin-dependent, sleep apnea, hyperlipidemia presents to the emergency department with chief complaint of dyspnea, crackles on exam at longterm, altered mental status. She was evaluated here in the emergency department her labs are significant for a white blood cell count of 13.8 hemoglobin 10.3 lactic acid 3.0 UA with 500 leuk esterase, positive for red blood cell, white blood cell bacteria present chest x-ray showed pulm edema with moderate left effusion and presumably underlying atelectasis. Study is similar to 01/23/2024 study. Patient was given dose of cefepime in ED, ED provider wishes to admit for further management. On exam patient very hard of hearing, hears best out of her left ear, typically hard to understand but more alert. Allergies No Known Allergies Allergy (Unverified 05/23/21 06:12) Home Medications: Allopurinol 300 mg PO DAILY AT SUPPER 09/17/23 Aspirin [Vazalore] 81 mg PO DAILY 09/17/23 Buspirone HCl [Buspar] 10 mg PO TID 09/17/23 Cetirizine HCl [Zyrtec*] 10 mg PO DAILY 09/17/23 Cholecalciferol (Vitamin D3) [Vitamin D3] 1,000 units PO NOON 09/17/23 Doxazosin Mesylate 4 mg PO BID 09/17/23 Escitalopram [Lexapro*] 10 mg PO DAILY 09/17/23 Gabapentin [Neurontin*] 300 mg PO BID 09/17/23 Hydralazine HCl 50 mg PO TID 09/17/23 Insulin Glargine,Hum.rec.anlog [Lantus] 10 units SQ DAILY 09/17/23 Magnesium Oxide [Magnesium] 400 mg PO NOON 09/17/23 Montelukast [Singulair*] 10 mg PO DAILY 09/17/23 Furosemide [Lasix*] 20 mg PO DAILY 30 Days #30 tab 11/22/23 Losartan Potassium [Cozaar*] 50 mg PO BID 11/22/23 Nebivolol HCl [Bystolic*] 10 mg PO DAILY tab 11/22/23 cloNIDine HCL [Catapres*] 0.1 mg PO BID PRN 30 Days #60 tab 11/22/23 Ipratropium Neb [Atrovent*] 0.2 mg IH Q6H PRN 30 Days #120 ml 12/22/23 - Past Medical/Surgical History Diabetic: Yes -: HTN -: HLD -: COPD-with home O2 -: DM II -: Diastolic CHF -: tonsilectomy -: R leg plates/pin -: dilation and curettage Psychosocial/ Personal History: patient lives at [place] - Family History Mother -: Lung disease Father -: Diabetes - Social History Alcohol use: No CD- Drugs: No Caffeine use: No Review of Systems 10-point ROS is otherwise unremarkable Respiratory: Shortness of Breath Physical Examination - Physical Exam General: Alert, In no apparent distress, Oriented x2, Other (Very [place]) HEENT: Atraumatic, PERRLA, Mucous membr. moist/pink Neck: Supple, 2+ carotid pulse no bruit, No LAD, Without JVD or thyroid abnormality Respiratory: Clear to auscultation bilaterally, Normal air movement Cardiovascular: Regular rate/rhythm, Normal S1 S2 Gastrointestinal: Normal bowel sounds, No tenderness Musculoskeletal: No tenderness Integumentary: No rashes Neurological: Normal speech, Normal strength at 5/5 x4 extr, Normal tone, Normal affect - Studies Laboratory Data (last 24 hrs) 02/11/24 02/11/24 13:10 13:10 WBC 13.80 H Hgb 10.3 L Hct 33.5 L Plt Count 177 Sodium 138 Potassium 4.1 BUN 33 H Creatinine 2.02 H Glucose 331 H Total Bilirubin 0.6 AST 13 L ALT 18 Alkaline Phosphatase 74 Microbiology Data (last 24 hrs): 02/11/24 13:40 Nasopharnyx Influenza Type A Antigen Screen - Final 02/11/24 13:40 Nasopharnyx Influenza Type B Antigen Screen - Final Assessment and Plan - Plan Assessment: Sepsis secondary to UTI-recurrent UTIs Acute on chronic systolic congestive heart failure Acute on chronic hypoxic respiratory failure COPD on chronic home O2 CKD Diabetes mellitus type 2insulin-dependent Hypertension Hyperlipidemia Plan: Sepsis secondary to UTI-recurrent UTIs Previous hospitalization patient had asymptomatic bacteriuria Now with leukocytosis, altered mentation Concern for UTI-previous urine culture showed Proteus sensitive to cefepime Continue antibioticscefepime, await urine cultures Acute on chronic systolic congestive heart failure Acute on chronic hypoxic respiratory failure COPD on chronic home O2 Increased dose of Lasix to 20 mg IV twice daily Takes Lasix twice milligrams daily at home Monitor Renal function daily CKD Daily chemistry Diabetes mellitus type 2insulin-dependent ACHS Accu-Chek, sliding scale insulin Hypertension Hyperlipidemia Home medications continued DVT PPX:heparin subq Code status:Full Discharge Plan: Home Plan to discharge in: 72 Hours - Advance Directives Does patient have a Living Will: No Does patient have a Durable POA for Healthcare: No - Code Status/Comfort Care Code Status Assessed: Yes (Full code) Critical Care: No Time Spent Managing Pts Care (In Minutes): 61
--- NOTE | 2024-02-11 17:32 | RAD REPORT ---
EXAMINATION: CT HEAD WITHOUT CONTRAST CLINICAL INDICATION: Female, 78 years old.AMS TECHNIQUE: Axial CT images from the skull base to the vertex without intravenous contrast. Coronal an d sagittal reformatted images were created from the data set. One or more of the following dose reduction techniques were used: Automated exposure control, adjustment of the mA and/or kV according to patient size, and/or iterative reconstruction. Unless otherwise specified, incidental findings do not require dedicated imaging follow-up. [id number]. COMPARISON: 12/21/2023 FINDINGS: INTRACRANIAL: No acute intracranial hemorrhage. No hydrocephalus. No mass effect or midline shift. 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 Motion limited. Mild/moderate chronic small vessel ischemic changes. VASCULATURE: No visualized abnormalities in the arteries or dural venous sinuses. SCALP/SKULL: No significant soft tissue or osseous abnormalities. SINUSES: Similar mastoid effusions. Trace right maxillary sinus thickening. IMPRESSION: No acute intracranial abnormality.
--- NOTE | 2024-02-11 17:43 | RAD REPORT ---
EXAMINATION: CT ABDOMEN AND PELVIS WITHOUT CONTRAST CLINICAL INDICATION: Female, 78 years old.uti, hematuria TECHNIQUE: CT abdomen and pelvis was performed, without IV contrast, as per department protocol. Axia l, sagittal and coronal reconstructions were obtained. One or more of the following dose reduction techniques were used: Automated exposure control, adjustment of the mA and/or kV according to the pat ient size, and/or iterative reconstruction. Unless otherwise specified, incidental findings do not require dedicated imaging follow-up. [id number]. IV CONTRAST: Not administered. COMPARISON: CT 12/16/2021 FINDINGS: The lack of intravenous contrast limits the sensitivity of this exam for evaluation of solid visceral organs, vascular structures, and retroperitoneum. LOWER CHEST: Mild nodular airspace disease present in the right middle lobe and right lower lobe. Sma ll left pleural effusion and underlying scarring/atelectasi.. Aortic valve calcification. LIVER: Nodular liver contour. No discrete mass identified. GALLBLADDER/BILE DUCTS: Cholecystectomy? PANCREAS: No mass, ductal dilation, or sid-pancreatic fluid. SPLEEN: Normal size. No focal lesion. ADRENALS: Left adrenal nodule measuring 15 mm which is unchanged since 12/16/2021 and benign. KIDNEYS AND URETERS: nonobstructing stones in the lower pole the right kidney. No ureteral calculi. A calcification along the course of the right ureter is consistent with an ovarian vein phlebolith. A high attenuation lesion measuring 18 mm on the lower pole of the left kidney is present on the prio r CT as well and only marginally increased in size since 2021, previously 15 mm. There is likely a left renal cyst as well. Evaluation is limited without IV contrast. URINARY BLADDER: Normal contour. GASTROINTESTINAL TRACT: Stomach is non-dilated. Small bowel has normal course and caliber. No colonic wall thickening or pericolonic inflammatory changes. PERITONEUM: No free fluid. ABDOMINAL AORTA AND OTHER VESSELS: Normal caliber aorta and IVC. Atherosclerosis. REPRODUCTIVE ORGANS: No pathologic process. MUSCULOSKELETAL: No acute or suspicious osseous abnormality. Multilevel degenerative changes are pres ent in the spine. ADDITIONAL FINDINGS: None. IMPRESSION: No acute abnormalities in the abdomen or pelvis, with evaluation limited by lack of IV contrast. Nonobstructive right nephrolithiasis. No ureteral calculi. Indeterminate left lower pole renal lesion which is marginally increased in size since 2021. This was not clearly evaluated on the ultrasound from 01/23/2024. Nonemergent renal protocol CT or MRI could further evaluate. Mild nodular airspace disease in the right lower lobe could reflect mild pneumonia or pneumonitis. Ch ronic left pleural effusion with likely underlying scarring and atelectasis.
[2024-02-11] MEDS: INSULIN REGULAR (HUMAN) 100 UNIT/ML SQ SCH (23:06)
[2024-02-11] MEDS ORDERED: ALBUTEROL 2.5 MG/3 ML NEB SOL NEB PRN (23:06)
[2024-02-11] MEDS ORDERED: cloNIDine HCL 0.1 MG TAB PO PRN (23:06)
[2024-02-11] MEDS ORDERED: ONDANSETRON 4 MG/2 ML VIAL IV PRN (23:06)
[2024-02-11] MEDS ORDERED: ACETAMINOPHEN 325 MG TABLET PO PRN (23:06)
[2024-02-12] MEDS: FUROSEMIDE 40 MG/4 ML VIAL IV ONE (00:07)
[2024-02-12] MEDS: BUSPIRONE HCL 5 MG TABLET PO SCH (01:07)
[2024-02-12] MEDS: HYDRALAZINE HCL 25 MG TABLET PO SCH (01:07)
[2024-02-12] MEDS: HEPARIN 5000 UNIT/ML 1 ML VIAL SQ SCH (01:08)
[2024-02-12] MEDS: LOSARTAN POTASSIUM 50 MG TABLET PO SCH (01:08)
[2024-02-12] MEDS: GABAPENTIN 300 MG CAP PO SCH (01:08)
[2024-02-12] MEDS: DOXAZOSIN 4 MG TAB PO SCH (01:08)
[2024-02-12 03:52] VITALS: BMI 31.1
[2024-02-12 06:43] LABS: Absolute Basophils 0.1 K/uL (0-0.5); Absolute Lymphocytes (CBC) 1.1 K/uL (0.7-4.9); Absolute Monocytes 0.8 K/uL (0.1-1.3); Basophils % 0.6 % (0-1.3); Eosinophils % 0.3 % (0-4.4); Hematocrit 32.8 % (36.0-45.0); Hemoglobin 10.5 g/dL (12.0-15.0); Lymphocytes % 7.9 % (15.3-44.8); MCH 30.3 pg (27.0-35.0); MCHC 32.1 g/dL (32.0-36.0); MCV 94.4 fL (80-100); MPV 10.5 fL (7.6-11.3); Neutrophils % 85.2 % (41.7-73.7); Platelets 183 thou/uL (152-406); RBC Red Blood Cell Count 3.47 M/uL (3.86-4.86); Red Cell Distribution Width 15.7 % (12.1-15.2)
[2024-02-12 08:23] LABS: Blood Morphology Comment NOT SEEN (NOT SEEN); Platelet Estimate ADEQ; White Blood Cell Scan OK (OK)
[2024-02-12] MEDS: CETIRIZINE HCL 5 MG TABLET PO SCH (08:29)
[2024-02-12] MEDS: NEBIVOLOL HCL 5 MG TAB PO SCH (08:29)
[2024-02-12] MEDS: MONTELUKAST 10 MG TAB PO SCH (08:29)
[2024-02-12] MEDS: FUROSEMIDE 20 MG/ 2ML VIAL IV SCH (08:30)
[2024-02-12] MEDS: ASPIRIN EC 81 MG TAB PO SCH (08:30)
[2024-02-12] MEDS: CEFEPIME 1 GM in NA CHLORIDE 0.9% 100 ML IV SCH (08:30)
--- NOTE | 2024-02-12 10:42 | P.PN ---
Date of Service: 02/12/24 Subjective: Was difficult to arouse this morning Very difficult to communicate with given severe hearing impairment You basically need to yell into the right ear She was arousable, responsive to verbal stimulus ROS: 10 point ROS as noted above, otherwise negative Physical exam GEN: Alert, oriented, NAD HEENT: Normal conjunctiva, sclera anicteric CV: Regular rate and rhythm, no edema Pulm: Nonlabored respirations on nasal cannula 5 L ABD: Soft, nontender, nondistended MSK: No joint tenderness Integumentary: No rashes Neuro: Normal speech, normal affect, extremely hard of hearing-hears best from right ear Vitals reviewed Assessment: Sepsis secondary to UTI-recurrent UTIs Acute on chronic systolic congestive heart failure Acute on chronic hypoxic respiratory failure COPD on chronic home O2 CKD Diabetes mellitus type 2insulin-dependent Hypertension Hyperlipidemia Plan: Sepsis secondary to UTI-recurrent UTIs Previous hospitalization patient had asymptomatic bacteriuria Now with leukocytosis, altered mentation Concern for UTI-previous urine culture showed Proteus sensitive to cefepime Urine cultures before that did show Proteus ESBL Continue antibioticscefepime, await urine cultures If there is not clinical improvement consider switching to meropenem/consulting ID Acute on chronic systolic congestive heart failure Acute on chronic hypoxic respiratory failure COPD on chronic home O2 Increased dose of Lasix to 20 mg IV twice daily for 2 days Will need home dose of Lasix resumed after IV Lasix falls off Takes Lasix twice milligrams daily at home Monitor Renal function daily CKD Daily chemistry Consider nephrology as needed, sees Dr. Wade schaefer Diabetes mellitus type 2insulin-dependent ACHS Accu-Chek, sliding scale insulin Hypertension Hyperlipidemia Home medications continued DVT PPX:heparin subq Code status:Full Discharge Plan: Home Plan to discharge in: 72 Hours - Advance Directives Does patient have a Living Will: No Does patient have a Durable POA for Healthcare: No Time Spent Managing Pts Care (In Minutes): 35
[2024-02-12 11:19] LABS: Blood Gas Oxyhemoglobin 94.4 % (94-97); Blood O2 Saturation 97.5 % (92-98.5)
[2024-02-12 11:20] LABS: Blood Gas THB 9.9 g/dl (12-18)
--- NOTE | 2024-02-12 11:22 | RAD REPORT ---
Procedure: Chest Single View HISTORY: Cough COMPARISON: February 11, 2024 FINDINGS: Mild bilateral pulmonary opacities. Left pleural effusion appears enlarged and is probably small to moderate. It may be loculated. Cardiomegaly IMPRESSION: Mild bilateral pulmonary opacities represent pulmonary edema or pneumonia Probable small to moderate left pleural effusion which may be loculated.
[2024-02-12] MEDS: allopurinoL 300 MG TAB PO SCH (17:01)
[2024-02-12] MEDS: ACETAMINOPHEN 325 MG TABLET PO PRN (21:38)
[2024-02-13 07:06] LABS: Absolute Basophils 0.1 K/uL (0-0.5); Absolute Eosinophils 0.1 K/uL (0-0.5); Absolute Lymphocytes (CBC) 0.9 K/uL (0.7-4.9); Absolute Monocytes 0.8 K/uL (0.1-1.3); Absolute Neutrophil 10.7 K/uL (1.8-8.0); Basophils % 0.4 % (0-1.3); Eosinophils % 1.1 % (0-4.4); Hematocrit 33.6 % (36.0-45.0); Hemoglobin 10.6 g/dL (12.0-15.0); Lymphocytes % 7.2 % (15.3-44.8); MCH 30.2 pg (27.0-35.0); MCHC 31.7 g/dL (32.0-36.0); MCV 95.1 fL (80-100); MPV 10.5 fL (7.6-11.3); Monocytes % 6.7 % (3.3-12.3); Neutrophils % 84.6 % (41.7-73.7); Nucleated Red Blood Cells % 0.1 % (0-0); Platelets 175 thou/uL (152-406); RBC Red Blood Cell Count 3.53 M/uL (3.86-4.86); Red Cell Distribution Width 15.8 % (12.1-15.2)
[2024-02-13 07:24] LABS: Anion Gap 7.7 mEq/L (5.0-15.0); Potassium 3.7 mEq/L (3.5-5.1)
[2024-02-13 12:40] VITALS: BP 158/75; TEMP 98.8
--- NOTE | 2024-02-13 13:15 | P.CNS ---
Date of Consult: 02/13/24 This is a 78-year-old female hours consulted for urinary tract infection and urosepsis. Patient is currently being treated with cefepime. She has significant past medical history of chronic systolic congestive heart failure, COPD on home oxygen currently on 2 L nasal cannula, diabetes mellitus type 2, sleep apnea, hyperlipidemia coming to the emergency room with complaint of dyspnea from her fpc and altered mental status patient is not a good historian most of the history was obtained through medical record and staff Past medical history: As per HPI Social history no noncontributory Family history noncontributory Acetaminophen (Acetaminophen 325 Mg Tablet) 650 mg PO Q4HP PRN PRN Reason: TEMP > 100' F Last Admin: 02/12/24 21:38 Dose: 650 mg Albuterol Sulfate (Albuterol 2.5 Mg/3 Ml Neb Jessy) 2.5 mg NEB Q6HP PRN PRN Reason: SHORTNESS OF BREATH Allopurinol (Allopurinol 300 Mg Tab) 300 mg PO DAILY AT SUPPER [facility] Last Admin: 02/12/24 17:01 Dose: 300 mg Aspirin (Aspirin Ec 81 Mg Tab) 81 mg PO DAILY [facility] Last Admin: 02/13/24 09:17 Dose: 81 mg Cefdinir (Cefdinir 300 Mg Cap) 300 mg PO BIDWM [facility] Cetirizine HCl (Cetirizine Hcl 5 Mg Tablet) 10 mg PO DAILY [facility] Last Admin: 02/13/24 09:16 Dose: 10 mg Clonidine HCl (Clonidine Hcl 0.1 Mg Tab) 0.1 mg PO BID PRN PRN Reason: Goal to achieve SBP in comment Doxazosin Mesylate (Doxazosin 4 Mg Tab) 4 mg PO BID [facility] Last Admin: 02/13/24 09:17 Dose: 4 mg Furosemide (Furosemide 20 Mg/ 2ml Vial) 20 mg IV BIDL [facility] Stop: 02/14/24 09:01 Last Admin: 02/13/24 09:18 Dose: 20 mg Heparin Sodium (Porcine) (Heparin 5000 Unit/Ml 1 Ml Vial) 5,000 unit SQ Q12HR [facility] Last Admin: 02/13/24 09:20 Dose: 5,000 unit Hydralazine HCl (Hydralazine Hcl 25 Mg Tablet) 50 mg PO TID [facility] Last Admin: 02/13/24 13:09 Dose: 50 mg Insulin Human Regular (Insulin Regular (Human) 100 Unit/Ml) 0 unit SQ ACHS [facility]; Protocol Last Admin: 02/13/24 12:20 Dose: 4 unit Losartan Potassium (Losartan Potassium 50 Mg Tablet) 50 mg PO BID [facility] Last Admin: 02/13/24 09:17 Dose: 50 mg Montelukast Sodium (Montelukast 10 Mg Tab) 10 mg PO DAILY [facility] Last Admin: 02/13/24 09:18 Dose: 10 mg Nebivolol (Nebivolol Hcl 5 Mg Tab) 10 mg PO DAILY [facility] Last Admin: 02/13/24 09:17 Dose: 10 mg Ondansetron HCl (Ondansetron 4 Mg/2 Ml Vial) 4 mg IV Q6HP PRN PRN Reason: NAUSEA / VOMITING Allergy/AdvReac Type Severity Reaction Status Date / Time No Known Allergies Allergy Unverified 05/23/21 06:12 Review of system: 10 point review was performed Physical exam: Patient lying in bed not in any acute cardiopulmonary distress awake Temp Pulse Resp BP Pulse Ox 98.8 F 72 181 H 158/75 H 94 02/13/24 12:00 02/13/24 12:00 02/13/24 12:00 02/13/24 12:00 02/13/24 12:00 HEENT atraumatic, normocephalic Neck: Supple, no JVD Lungs: Basal crackles Heart S1-S2 Abdomen soft, bowel sound present Extremity: No edema Laboratory Last Values WBC 13.80 thou/uL (4.3-10.9) H 02/11/24 13:10 RBC 3.47 M/uL (3.86-4.86) L 02/11/24 13:10 Hgb 10.3 g/dL (12.0-15.0) L 02/11/24 13:10 Hct 33.5 % (36.0-45.0) L 02/11/24 13:10 MCV 96.6 fL (80-100) 02/11/24 13:10 MCH 29.8 pg (27.0-35.0) 02/11/24 13:10 MCHC 30.8 g/dL (32.0-36.0) L 02/11/24 13:10 RDW 15.9 % (12.1-15.2) H 02/11/24 13:10 Plt Count 177 thou/uL (152-406) 02/11/24 13:10 MPV 10.5 fL (7.6-11.3) 02/11/24 13:10 Neutrophils % 85.5 % (41.7-73.7) H 02/11/24 13:10 Lymphocytes % 8.4 % (15.3-44.8) L 02/11/24 13:10 Monocytes % 5.6 % (3.3-12.3) 02/11/24 13:10 Eosinophils % 0.1 % (0-4.4) 02/11/24 13:10 Basophils % 0.4 % (0-1.3) 02/11/24 13:10 Absolute Neutrophils 11.8 K/uL (1.8-8.0) H 02/11/24 13:10 Absolute Lymphocytes 1.2 K/uL (0.7-4.9) 02/11/24 13:10 Absolute Monocytes 0.8 K/uL (0.1-1.3) 02/11/24 13:10 Absolute Eosinophils 0.0 K/uL (0-0.5) 02/11/24 13:10 Absolute Basophils 0.1 K/uL (0-0.5) 02/11/24 13:10 Sodium 138 mEq/L (136-145) 02/11/24 13:10 Potassium 4.1 mEq/L (3.5-5.1) 02/11/24 13:10 Chloride 103 mEq/L (98-107) 02/11/24 13:10 Carbon Dioxide 32 mEq/L (21-32) 02/11/24 13:10 Anion Gap 7.1 mEq/L (5.0-15.0) 02/11/24 13:10 BUN 33 mg/dL (7-18) H 02/11/24 13:10 Creatinine 2.02 mg/dL (0.55-1.02) H 02/11/24 13:10 Est GFR (CKD-EPI) 25 ml/min (=/>90) L 02/11/24 13:10 Glucose 331 mg/dL (74-106) H 02/11/24 13:10 Lactic Acid 1.9 mmol/L (0.4-2.0) 02/11/24 16:26 Lactic Acid F/U @ 2Hr Reorder 02/11/24 14:03 Calcium 9.1 mg/dL (8.5-10.1) 02/11/24 13:10 Total Bilirubin 0.6 mg/dL (0.2-1.0) 02/11/24 13:10 AST 13 U/L (15-37) L 02/11/24 13:10 ALT 18 U/L (13-56) 02/11/24 13:10 Alkaline Phosphatase 74 U/L (45-117) 02/11/24 13:10 Serum Total Protein 7.5 g/dL (6.4-8.2) 02/11/24 13:10 Albumin 2.9 g/dL (3.4-5.0) L 02/11/24 13:10 Globulin 4.6 g/dL (2.3-3.5) H 02/11/24 13:10 Albumin/Globulin Ratio 0.6 (1.1-1.8) L 02/11/24 13:10 Urine Color Light-orange (Yellow) 02/11/24 14:47 Urine Clarity Extremely turbid (Clear) H 02/11/24 14:47 Urine pH 6.0 (5.0-7.0) 02/11/24 14:47 Ur Specific [place] 1.012 (1.005-1.030) 02/11/24 14:47 Glucose (UA)(Auto) Negative (Negative) 02/11/24 14:47 Urine Ketones Negative (Negative) 02/11/24 14:47 Urine Blood 1+ (Negative) H 02/11/24 14:47 Urine Nitrite Negative (Negative) 02/11/24 14:47 Urine Bilirubin Negative (Negative) 02/11/24 14:47 Urine Urobilinogen Normal (Normal) 02/11/24 14:47 Ur Leukocyte Esterase 500 Gustavo/uL (Negative) H 02/11/24 14:47 Urine RBC >50 /HPF (None Seen) H 02/11/24 14:47 Urine WBC >50 /HPF (<5) H 02/11/24 14:47 Urine WBC Clumps Many /HPF (None Seen) H 02/11/24 14:47 Ur Squamous Epith Cells None seen /HPF (None Seen) 02/11/24 14:47 Unidentified Crystals Moderate /HPF (None Seen) H 02/11/24 14:47 Urine Bacteria <20 /HPF (<20) 02/11/24 14:47 Hyaline Casts 10-20 /LPF (None Seen) H 02/11/24 14:47 Urine Mucus Slight /HPF (None Seen) 02/11/24 14:47 Urine Culture Reflexed Reflexed 02/11/24 14:47 Urine Total Protein 2+ (Negative) H 02/11/24 14:47 SARS-CoV-2 Ag (Rapid) Negative (Negative) 02/11/24 13:40 02/11/24 14:47 Clean Catch Urine Lyman Count - Final >100,000 CFU/ML. 02/11/24 14:47 Clean Catch Urine - Final Proteus Mirabilis Assessment and plan: Urosepsis secondary to Proteus mirabilis consider switching to Rocephin for 5 to 7 days Leukocytosis COPD Anemia of chronic disease Monitor signs of infection with WBC and fever trends Thank you for consult
[2024-02-13] MEDS: CEFTRIAXONE 1,000 MG in NA CHLORIDE 0.9% 50 ML IVPB SCH (13:56)
[2024-02-13] MEDS ORDERED: ALBUTEROL 2.5 MG/3 ML NEB SOL NEB PRN (14:07)
[2024-02-13] MEDS ORDERED: GLUCAGON 1 MG/VIAL IM PRN (14:08)
[2024-02-13] MEDS ORDERED: D10W 125 ML IV PRN (14:08)
--- NOTE | 2024-02-13 14:59 | P.DS ---
Admission Date: 02/11/24 Discharge Date: 02/13/24 Disposition: NURSING HOME ACUTE CARE FACILITY Discharge Condition: GOOD Reason for Admission: Severe sepsis, UTI Brief History of Present Illness: Diagnosis Sepsis secondary to UTI-recurrent UTIs Acute on chronic systolic congestive heart failure Acute on chronic hypoxic respiratory failure COPD on chronic home O2 CKD Diabetes mellitus type 2insulin-dependent Hypertension Hyperlipidemia HPI 02/11/2024 Kaitlynn Snider is a 78-year-old female with history of chronic systolic congestive heart failure, COPD on home O2, diabetes mellitus type 2insulin-dependent, sleep apnea, hyperlipidemia presents to the emergency department with chief complaint of dyspnea, crackles on exam at detention, altered mental status. She was evaluated here in the emergency department her labs are significant for a white blood cell count of 13.8 hemoglobin 10.3 lactic acid 3.0 UA with 500 leuk esterase, positive for red blood cell, white blood cell bacteria present chest x-ray showed pulm edema with moderate left effusion and presumably underlying atelectasis. Study is similar to 01/23/2024 study. Patient was given dose of cefepime in ED, ED provider wishes to admit for further management. On exam patient very hard of hearing, hears best out of her left ear, typically hard to understand but more alert. Hospital Course: Kaitlynn Snider is a pleasant 78-year-old female with a past medical history significant for chronic systolic congestive heart failure, COPD on home O2, diabetes mellitus type 2insulin-dependent, sleep apnea, hyperlipidemia who was admitted to the [facility] on 02/11/2024 for sepsis UTI. Kaitlynn presented to the ED due to altered mental status, dyspnea, crackles to the lungs at the detention. Upon evaluation in the ED she was found to be septic secondary to UTI. Dr. Bean was consulted and agrees with discharge on p.o. cefdinir versus IV Rocephin. She has tolerated IV antibiotics and is on 2 L nasal cannula which is her home dose. She will need to follow-up with her PCP in 1 week for further evaluation and management. On 02/13/2024, Kaitlynn was seen on morning rounds and deemed medically stable for discharge. Kaitlynn was discharged with instructions to schedule follow-up appointments with PCP. Kaitlynn was provided prescriptions for cefdinir. Physical exam GEN: Alert and oriented x2, NAD HEENT: Normal conjunctiva, sclera anicteric CV: Regular rate and rhythm, no edema Pulm: Nonlabored respirations, clear BBS on nasal cannula 2 L ABD: Soft on palpation, ND/NT, normal active bowel sounds MSK: No joint tenderness Integumentary: No rashes Neuro: Normal speech, normal affect, extremely hard of hearing-hears best from right ear Vital Signs/Physical Exam: Temp Pulse Resp BP Pulse Ox 98.8 F 72 181 H 158/75 H 94 02/13/24 12:00 02/13/24 12:00 02/13/24 12:00 02/13/24 12:00 02/13/24 12:00 Laboratory Data at Discharge: WBC 12.60 thou/uL (4.3-10.9) H 02/13/24 05:44 Hgb 10.6 g/dL (12.0-15.0) L 02/13/24 05:44 Hct 33.6 % (36.0-45.0) L 02/13/24 05:44 Plt Count 175 thou/uL (152-406) 02/13/24 05:44 Sodium 138 mEq/L (136-145) 02/13/24 05:44 Potassium 3.7 mEq/L (3.5-5.1) 02/13/24 05:44 BUN 34 mg/dL (7-18) H 02/13/24 05:44 Creatinine 1.51 mg/dL (0.55-1.02) H 02/13/24 05:44 Glucose 287 mg/dL (74-106) H 02/13/24 05:44 Total Bilirubin 0.6 mg/dL (0.2-1.0) 02/11/24 13:10 AST 13 U/L (15-37) L 02/11/24 13:10 ALT 18 U/L (13-56) 02/11/24 13:10 Alkaline Phosphatase 74 U/L (45-117) 02/11/24 13:10 Home Medications: Allopurinol 300 mg PO DAILY AT SUPPER 09/17/23 Aspirin [Vazalore] 81 mg PO DAILY 09/17/23 Buspirone HCl [Buspar] 10 mg PO TID 09/17/23 Cetirizine HCl [Zyrtec*] 10 mg PO DAILY 09/17/23 Cholecalciferol (Vitamin D3) [Vitamin D3] 1,000 units PO NOON 09/17/23 Doxazosin Mesylate 4 mg PO BID 09/17/23 Escitalopram [Lexapro*] 10 mg PO DAILY 09/17/23 Gabapentin [Neurontin*] 300 mg PO BID 09/17/23 Hydralazine HCl 50 mg PO TID 09/17/23 Insulin Glargine,Hum.rec.anlog [Lantus] 10 units SQ DAILY 09/17/23 Magnesium Oxide [Magnesium] 400 mg PO NOON 09/17/23 Montelukast [Singulair*] 10 mg PO DAILY 09/17/23 Furosemide [Lasix*] 20 mg PO DAILY 30 Days #30 tab 11/22/23 Losartan Potassium [Cozaar*] 50 mg PO BID 11/22/23 Nebivolol HCl [Bystolic*] 10 mg PO DAILY tab 11/22/23 cloNIDine HCL [Catapres*] 0.1 mg PO BID PRN 30 Days #60 tab 11/22/23 Ipratropium Neb [Atrovent*] 0.2 mg IH Q6H PRN 30 Days #120 ml 12/22/23 Cefdinir [Cefdinir*] 300 mg PO BID 10 Days #20 cap 02/13/24 New Medications: Cefdinir [Cefdinir*] 300 mg PO BID 10 Days #20 cap Physician Discharge Instructions: 1. Follow up with PCP in 10 days, UTI follow up 2. Continue Carb consistent diet -Monitor blood glucose and diet regulations as blood glucose has been elevated 3. Fall precautions 4. Return to ED if symptoms worsen long term care phlebotomist resident: [address] [address] P:[phone]/F:[phone] Followup: Luciano Mcfadden MD [Primary Care Provider] -
[2024-02-13 15:42] VITALS: O2SAT 96
[2024-02-13] MEDS ORDERED: CEFDINIR 300 MG CAP PO SCH (17:00)
--- NOTE | 2024-02-16 16:07 | EKG ---
Test Date: 2024-02-11 Test Time: 13:37:45 Machine Etcher: LEO MEASUREMENT RESULTS: Intervals: Rate: 63 WA: 196 QRSD: 94 QT: 456 QTc: 466 [place]: P: 67 WA: 196 QRS: 153 T: -32 INTERPRETIVE STATEMENTS: Normal sinus rhythm Anterolateral infarct, age undetermined Abnormal ECG Compared to ECG 01/23/2024 12:34:01 No significant changes Electronically Signed On 02-16-24 15:57:25 [employer] SCI[employer] PROGRAM COORDINATOR by Brian Petty
== END 2024-02-13 17:15 | DRG 871 ==
LOC: ER 12:26 → ERHOLD 16:59 → 4TH 20:28
PROVIDERS: ADMIT Hospitalist; ATTEND Internal Medicine
PROC: 4A033R1 Measurement of Arterial Saturation, Peripheral, Percutaneous Approach (ICD-10-PCS; principal; 2024-02-12)
DX: A41.59 Other Gram-negative sepsis (principal); I50.23 Acute on chronic systolic (congestive) heart failure; J96.21 Acute and chronic respiratory failure with hypoxia; N39.0 Urinary tract infection, site not specified; I13.0 Hypertensive heart and chronic kidney disease with heart failure and stage 1 through stage 4 chronic kidney disease, or unspecified chronic kidney disease; R65.20 Severe sepsis without septic shock; N18.9 Chronic kidney disease, unspecified; E11.22 Type 2 diabetes mellitus with diabetic chronic kidney disease; D63.1 Anemia in chronic kidney disease; E78.00 Pure hypercholesterolemia, unspecified; J44.9 Chronic obstructive pulmonary disease, unspecified; Z79.4 Long term (current) use of insulin; Z79.82 Long term (current) use of aspirin; Z11.52 Encounter for screening for COVID-19; Z99.81 Dependence on supplemental oxygen; Z79.899 Other long term (current) drug therapy
CPT/HCPCS: 36415; 36600; 51702; 70450; 71045; 74176; 80048; 80053; 81001; 82805; 82947; 83605; 85025; 87040; 87077; 87086; 87088; 87186; 87804; 87811; 93005; 94760; 96365; 96366; 99285; J0692; J1644; J1940; J7030; J7613

== ENCOUNTER 2024-03-01 19:43 | Emergency (ER) | payer OTHER ==
[2024-03-01] MEDS ORDERED: HYDRALAZINE HCL 20 MG/ML VIAL ONE ×2 (20:14→22:57)
[2024-03-01 20:22] LABS: Absolute Basophils 0.1 K/uL (0-0.5); Absolute Eosinophils 0.1 K/uL (0-0.5); Absolute Lymphocytes (CBC) 1.4 K/uL (0.7-4.9); Absolute Monocytes 0.6 K/uL (0.1-1.3); Absolute Neutrophil 7.3 K/uL (1.8-8.0); Basophils % 0.7 % (0-1.3); Eosinophils % 1.6 % (0-4.4); Hematocrit 32.3 % (36.0-45.0); Hemoglobin 10.2 g/dL (12.0-15.0); Lymphocytes % 14.5 % (15.3-44.8); MCH 29.9 pg (27.0-35.0); MCHC 31.6 g/dL (32.0-36.0); MCV 94.8 fL (80-100); Monocytes % 6.1 % (3.3-12.3); Neutrophils % 77.1 % (41.7-73.7); Platelets 204 thou/uL (152-406)
[2024-03-01 20:47] LABS: Albumin 2.6 g/dL (3.4-5.0); Albumin/Globulin Ratio 0.5 (1.1-1.8); Anion Gap 4.8 mEq/L (5.0-15.0); Bilirubin Total 0.4 mg/dL (0.2-1.0); Globulin 4.8 g/dL (2.3-3.5); Protein, Total 7.4 g/dL (6.4-8.2); Troponin High Sensitivity 28.3 pg/mL (<58.9)
[2024-03-01 20:48] LABS: Potassium 4.8 mEq/L (3.5-5.1)
--- NOTE | 2024-03-01 22:13 | ER ---
Nurse's Notes [facility] Name: Kaitlynn Snider Age: 78 yrs Sex: Female : 1945 Arrival Date: 03/01/2024 Time: 19:43 Bed 4 Private MD: Diagnosis: Essential (primary) hypertension Presentation: 03/01 19:53 Chief complaint: EMS states: TONED OUT TO [facility] FOR C/O HYPERTENSION X2 DAYS. RN dd2 REPORTED MULTIPLE ROUNDS OF COREG AND CLONIDINE BUT, CONTINUED TO REMAIN ELEVATED. Coronavirus screen: At this time, the client does not indicate any symptoms associated with coronavirus-19. Ebola Screen: No symptoms or risks identified at this time. Initial Sepsis Screen: Does the patient meet any 2 criteria? No. Patient's initial sepsis screen is negative. Does the patient have a suspected source of infection? No. Patient's initial sepsis screen is negative. Risk Assessment: Do you want to hurt yourself or someone else? Patient reports no desire to harm self or others. Onset of symptoms was February 29, 2024. Care prior to arrival:. Transition of care: patient was received from another setting of care (long-term care facility), [facility]. 19:53 Method Of Arrival: EMS: [facility] dd2 19:53 Acuity: RHINA 3 dd2 Triage Assessment: 19:58 General: Appears in no apparent distress. Behavior is calm, cooperative, appropriate dd2 for age. Pain: Denies pain. EENT: No deficits noted. No signs and/or symptoms were reported regarding the EENT system. Neuro: Level of Consciousness is awake, obeys commands, confused, Oriented to person. Cardiovascular: Reports None Patient's skin is warm and dry. Respiratory: No deficits noted. Airway is patent Respiratory effort is even, unlabored, Respiratory pattern is regular, symmetrical. GI: No deficits noted. No signs and/or symptoms were reported involving the gastrointestinal system. Abdomen is non-distended, Abd is soft and non tender X 4 quads. : No deficits noted. No signs and/or symptoms were reported regarding the genitourinary system. Derm: No deficits noted. No signs and/or symptoms reported regarding the dermatologic system. Musculoskeletal: Circulation, motion, and sensation intact. Range of motion: intact in all extremities. 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 - Infectious Disease History:: Denies. - Social history:: Smoking status: unknown. Screenin:09 [facility] ED Fall Risk Assessment (Adult) History of falling in the last 3 months, dd2 including since admission No falls in past 3 months (0 pts) Confusion or Disorientation Yes (5 pts) Intoxicated or Sedated No (0 pts) Impaired Gait Yes (1 pt) Mobility Assist Device Used Yes (1 pt) Altered Elimination Yes (1 pt) Score/Fall Risk Level 3 or more points = High Risk Oriented to surroundings, Maintained a safe environment, Educated pt \T\ family on fall prevention, incl call for assistance when getting out of bed, Assessed \T\ reinforced patient's understanding of fall precautions, Provided non-skid footwear, Hourly rounding (assess needs \T\ fall precautionary measures) done, Used ambulatory aids as needed (educated on \T\ assisted with). Abuse screen: Denies threats or abuse. Nutritional screening: No deficits noted. Tuberculosis screening: No symptoms or risk factors identified. Assessment: 20:01 Reassessment: SEE TRIAGE ASSESSMENT FOR FULL ASSESSMENT. dd2 21:09 Reassessment: BP has improved. dd2 22:20 Reassessment: NOTIFIED [facility] FOR D/C AND TRANSFER BACK TO FACILITY. dd2 22:39 Reassessment: REPORT GIVEN TO [facility] RN. [facility] BE[facility] NOTIFIED FOR PT dd2 D/C RIDE. Vital Signs: 19:53 BP 220 / 85; Pulse 60; Resp 16; Temp 98.4(O); Pulse Ox 97% ; Weight 79.38 kg; dd2 19:56 BP 226 / 78; Pulse 63; Resp 20; Temp 98.8; Pulse Ox 97% ; hw 20:02 BP 201 / 83; Pulse 58; Resp 16; Pulse Ox 98% on R/A; dd2 20:46 BP 183 / 66; Pulse 60; Resp 16; Pulse Ox 97% ; dd2 21:09 BP 168 / 64; Pulse 61; Resp 16; Pulse Ox 98% ; dd2 21:40 BP 166 / 89; Pulse 62; Resp 15; Pulse Ox 96% on R/A; dd2 22:02 BP 167 / 60; Pulse 61; Resp 16; Pulse Ox 94% on R/A; dd2 ED Course: 19:44 Patient arrived in ED. lg3 19:51 JENNIFER BOLANOS, RN is Primary Nurse. dd2 19:58 Triage completed. dd2 19:58 Arm band placed on right wrist. Patient placed in an exam room, on a stretcher, on dd2 pulse oximetry. 20:00 Patient has correct armband on for positive identification. Bed in low position. Call dd2 light in reach. Side rails up X2. Client placed on continuous cardiac and pulse oximetry monitoring. NIBP monitoring applied. potline monitor on. Door closed. Noise minimized. Warm blanket given. Pillow given. Verbal reassurance given. 20:00 No provider procedures requiring assistance completed. Patient maintains SpO2 dd2 saturation greater than 95% on room air. 20:04 Naomi Ragland MD is Attending Physician. sd2 20:12 Troponin High Sensitivity Sent. dd2 20:12 CMP Sent. dd2 20:12 CBC with Diff Sent. dd2 20:15 EKG done, by ED staff. hw 20:22 Inserted saline lock: 20 gauge in right antecubital area, using aseptic technique. dd2 Blood collected. Flushed with 10 mL NS. 23:15 IV discontinued, intact, bleeding controlled, No redness/swelling at site. Pressure dd2 dressing applied. 23:31 Provided Education on: d/c education to RN. dd2 Administered Medications: 20:22 Drug: hydrALAZINE IVP 20 mg IVP once Route: IVP; Site: right antecubital; dd2 21:37 Follow up: Response: No adverse reaction dd2 22:58 Drug: hydrALAZINE IVP 10 mg IVP once Route: IVP; Site: right antecubital; dd2 23:13 Follow up: Response: No adverse reaction dd2 Medication: 21:09 VIS not applicable for this client. dd2 Outcome: 22:12 Discharge ordered by . sd2 23:15 Discharged to longterm. Report called to jose dd2 23:15 Condition: stable 23:15 Discharge instructions given to longterm, EMS, Instructed on discharge instructions, follow up and referral plans. medication usage, Demonstrated understanding of instructions, follow-up care, medications, 23:31 Patient left the ED. dd2 Signatures: Krystal Oliva RN RN lg3 Naomi Ragland MD MD sd2 JENNIFER BOLANOS RN RN dd2 Hollie Grijalva Corrections: (The following items were deleted from the chart) 20:45 19:58 Neuro: Level of Consciousness is awake, obeys commands, confused, Oriented to dd2 person, place, dd2
--- NOTE | 2024-03-01 22:13 | EDPHYS ---
Physician Documentation [facility] Name: Kaitlynn Snider Age: 78 yrs Sex: Female : 1945 Arrival Date: 03/01/2024 Time: 19:43 Bed 4 Private MD: ED Physician Naomi Ragland HPI: 03/01 20:27 This 78 yrs old Female presents to ER via EMS with complaints of High Blood Pressure. sd2 20:27 78 yo F presents via EMS from [place] with CC of HTN. Per [place], multiple rounds of Coreg and sd2 clonidine tried yesterday and today with temporary improvement and BP increases again. Pt with no other complaints. . 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 - Infectious Disease History:: Denies. - Social history:: Smoking status: unknown. ROS: 20:27 Constitutional: Negative for fever, chills, and weight loss, Eyes: Negative for injury, sd2 pain, redness, and discharge, Cardiovascular: Negative for chest pain, palpitations, and edema, Respiratory: Negative for shortness of breath, cough, wheezing. Abdomen/GI: Negative for abdominal pain, nausea, vomiting, diarrhea. MS/Extremity: Negative for injury and deformity, Skin: Negative for injury, rash, and discoloration, Neuro: Negative for headache, numbness and tingling. Exam: 20:27 Constitutional: This is a well developed, well nourished patient who is awake, alert, sd2 and in no acute distress. Head/Face: Normocephalic, atraumatic. Eyes: EOMI, normal conjunctiva bilaterally Chest/axilla: Normal chest wall appearance and motion. Nontender with no deformity. Cardiovascular: Regular rate and rhythm with a normal S1 and S2. No gallops, murmurs, or rubs. 2+ distal pulses. Respiratory: Lungs have equal breath sounds bilaterally, clear to auscultation and percussion. No rales, rhonchi or wheezes noted. No increased work of breathing, no retractions or nasal flaring. Abdomen/GI: Soft, non-tender, with normal bowel sounds. No guarding or rebound. No evidence of tenderness throughout. Skin: Warm, dry with normal turgor. Normal color with no rashes, no lesions, and no evidence of cellulitis. MS/ Extremity: Pulses equal, no cyanosis. Neurovascular intact. Full, normal range of motion. Psych: Awake, alert, with orientation to person, place but not time which is patient's baseline per report. Behavior, mood, and affect are within normal limits. 20:27 ECG was reviewed by the Attending Physician. NSR, rate 61, no STEMI criteria, 1st degree AV block Vital Signs: 19:53 BP 220 / 85; Pulse 60; Resp 16; Temp 98.4(O); Pulse Ox 97% ; Weight 79.38 kg; dd2 19:56 BP 226 / 78; Pulse 63; Resp 20; Temp 98.8; Pulse Ox 97% ; hw 20:02 BP 201 / 83; Pulse 58; Resp 16; Pulse Ox 98% on R/A; dd2 20:46 BP 183 / 66; Pulse 60; Resp 16; Pulse Ox 97% ; dd2 21:09 BP 168 / 64; Pulse 61; Resp 16; Pulse Ox 98% ; dd2 21:40 BP 166 / 89; Pulse 62; Resp 15; Pulse Ox 96% on R/A; dd2 22:02 BP 167 / 60; Pulse 61; Resp 16; Pulse Ox 94% on R/A; dd2 MDM: 20:04 Medical Screening Exam initiated sd2 20:27 Differential diagnosis: hypertensive urgency/emergency, ACS, malignant HTN among sd2 others. Data reviewed: vital signs, nurses notes, EMS record, lab test result(s), EKG. I considered the following discharge prescriptions or medication management in the emergency department Medications were administered in the Emergency Department. See MAR. Historians other than the Patient: EMS: . Care significantly affected by the following chronic conditions: Diabetes, Hypertension, Chronic Obstructive Pulmonary Disease. 22:11 Counseling: I had a detailed discussion with the patient and/or guardian regarding the sd2 historical points, exam findings, and any diagnostic results supporting the discharge/admit diagnosis, lab results, the need for outpatient follow up, to return to the emergency department if symptoms worsen or persist or if there are any questions or concerns that arise at home. ED course: Pt's BP improved. No signs of end organ damage. Creatinine improved from prior labs. Will dc back to [place] for outpatient follow up and continued management of her outpatient BP medications by her PCP. . 03/01 20:09 Order name: CBC with Diff; Complete Time: 20:57 sd2 03/01 20:09 Order name: CMP; Complete Time: 20:57 sd2 03/01 20:09 Order name: Troponin High Sensitivity; Complete Time: 20:57 sd2 03/01 20:09 Order name: EKG - Nurse/Tech; Complete Time: 20:12 sd2 Administered Medications: 20:22 Drug: hydrALAZINE IVP 20 mg IVP once Route: IVP; Site: right antecubital; dd2 21:37 Follow up: Response: No adverse reaction dd2 22:58 Drug: hydrALAZINE IVP 10 mg IVP once Route: IVP; Site: right antecubital; dd2 23:13 Follow up: Response: No adverse reaction dd2 Disposition Summary: 03/01/24 22:12 Discharge Ordered Problem: new sd2 Symptoms: have improved sd2 Condition: Stable sd2 Diagnosis - Essential (primary) hypertension sd2 Followup: sd2 - With: Private Physician - When: 1 - 2 days - Reason: Recheck today's complaints, Continuance of care, Re-evaluation by your physician Discharge Instructions: - Discharge Summary Sheet sd2 - Hypertension, Adult sd2 - Managing Your Hypertension sd2 Forms: - Medication Reconciliation Form sd2 - Antibiotic Education sd2 - Prescription Opioid Use sd2 - Patient Portal Instructions sd2 - Leadership Thank You Letter sd2 Signatures: Dispatcher [employer] EDNaomi Garcia MD MD sd2 JENNIFER BOLANOS RN RN dd2 Corrections: (The following items were deleted from the chart) 20:10 20:10 CBC+H.LAB.BRZ ordered. EDMS EDMS 20:10 20:10 COMPREHENSIVE METABOLIC PANEL+C.LAB.BRZ ordered. EDMS EDMS 20:10 20:10 Troponin High Sensitivity+C.LAB.BRZ ordered. EDMS EDMS
[2024-03-02 00:20] VITALS: TEMP 98.8
[2024-03-02 00:26] VITALS: BP 167/60; O2SAT 94
--- NOTE | 2024-03-04 11:17 | EKG ---
Test Date: 2024-03-01 Test Time: 20:12:13 Automobile Accessories Salesperson: [id number] MEASUREMENT RESULTS: Intervals: Rate: 61 DE: 212 QRSD: 96 QT: 452 QTc: 455 Hopkins: P: 71 DE: 212 QRS: 230 T: 69 INTERPRETIVE STATEMENTS: Sinus rhythm with 1st degree AV block Low voltage QRS Septal infarct, age undetermined Lateral infarct, age undetermined Abnormal ECG Compared to ECG 02/11/2024 13:37:45 First degree AV block now present Low QRS voltage now present Myocardial infarct finding still present Electronically Signed On 03-04-24 11:12:35 MITER SAW OPERATOR by Brian Petty
== END 2024-03-01 23:31 | disposition home or self-care (01) ==
LOC: ER 19:43
DX: I10 Essential (primary) hypertension (principal)
CPT/HCPCS: 93005; 85025; 36415; 84484; 80053; 96374; 99285; J0360 ×2

== ENCOUNTER 2024-05-20 17:04 | Inpatient (IN) | payer OTHER ==
[2024-05-20 17:44] LABS: ALT/SGPT 24 U/L (13-56); AST/SGOT 21 U/L (15-37); Absolute Basophils 0.1 K/uL (0-0.5); Absolute Eosinophils 0.2 K/uL (0-0.5); Absolute Lymphocytes (CBC) 1.4 K/uL (0.7-4.9); Absolute Monocytes 0.5 K/uL (0.1-1.3); Absolute Neutrophil 7.7 K/uL (1.8-8.0); Albumin/Globulin Ratio 0.7 (1.1-1.8); Alkaline Phosphatase 95 U/L (45-117); Anion Gap 9.1 mEq/L (5.0-15.0); BUN Blood Urea Nitrogen 39 mg/dL (7-18); Bicarbonate 31 mEq/L (21-32); Bilirubin Total 0.3 mg/dL (0.2-1.0); Eosinophils % 1.8 % (0-4.4); Globulin 4.5 g/dL (2.3-3.5); Glomerular Filtration Rate 22 ml/min (=/>90); Glucose Level 313 mg/dL (74-106); Hematocrit 33.7 % (36.0-45.0); Hemoglobin 11.1 g/dL (12.0-15.0); Lymphocytes % 14.4 % (15.3-44.8); MCHC 32.8 g/dL (32.0-36.0); MCV 91.4 fL (80-100); MPV 10.3 fL (7.6-11.3); Monocytes % 5.4 % (3.3-12.3); Neutrophils % 77.4 % (41.7-73.7); Platelets 174 thou/uL (152-406); Potassium 4.1 mEq/L (3.5-5.1); Protein, Total 7.5 g/dL (6.4-8.2); RBC Red Blood Cell Count 3.68 M/uL (3.86-4.86); Red Cell Distribution Width 15.8 % (12.1-15.2); Sodium Level 135 mEq/L (136-145); Troponin High Sensitivity 14.5 pg/mL (<58.9)
[2024-05-20 17:46] LABS: Bilirubin Direct < 0.2 mg/dL (0-0.2); Bilirubin Indirect, Calculated 0.1 mg/dL (0.2-0.8); PT Prothrombin Time 11.5 SECONDS (10-13.0); Protime INR 1.01
[2024-05-20] MEDS ORDERED: ONDANSETRON 4 MG/2 ML VIAL ONE (18:07)
[2024-05-20] MEDS ORDERED: MORPHINE 2 MG/ML SYR ONE (18:07)
--- NOTE | 2024-05-20 18:33 | RAD REPORT ---
EXAMINATION: Hip Left 2 View CLINICAL INDICATION: Female, 79 years old. hip fx fall COMPARISON: No prior exam. FINDINGS: Left intertrochanteric hip fracture which is comminuted and displaced. No dislocation. Peripheral vas cular calcifications. IMPRESSION: Displaced and comminuted left intertrochanteric hip fracture.
--- NOTE | 2024-05-20 18:34 | RAD REPORT ---
EXAM: Chest Single View HISTORY: 79 years Female Preop COMPARISON: 02/12/2024 FINDINGS: LUNGS/PLEURA: Small left pleural effusion with hazy bilateral opacities and pulmonary vascular promin ence. CARDIAC/MEDIASTINUM: Stable enlargement. UPPER ABDOMEN: No significant abnormality. BONES: No acute abnormality. LINES/TUBES/OTHER: N/A IMPRESSION: Mild pulmonary edema with small left pleural effusion.
--- NOTE | 2024-05-20 18:40 | EDPHYS ---
Physician Documentation [facility] Name: Kaitlynn Snider Age: 79 yrs Sex: Female : 1945 Arrival Date: 05/20/2024 Time: 17:04 Bed 25 Private MD: ED Physician Fouiza De Jesus HPI: 05/20 17:27 This 79 yrs old Female presents to ER via EMS with complaints of fall, left hip sp3 pain/deformity. 17:28 79-year-old female with history of COPD, diabetes, hyperlipidemia, who is nonambulatory sp3 presents to the ED via EMS for fall while trying to ambulate when she was not supposed to [place] causing her to fall and suffer a left hip injury including deformity. No secondary injury or head injury reported. Patient reported to be at her baseline mental status. Review of systems negative for head injury, neck pain, chest pain, back pain, other extremity pain, or any other signs or symptoms on ROS at this time. Fall was witnessed and due to mechanics as opposed to medical prodrome.. 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 - Infectious Disease History:: Denies. - Social history:: Smoking status: Patient denies any tobacco usage or history of. ROS: 17:30 Constitutional: Negative for fever, chills, and weight loss, Eyes: Negative for injury, sp3 pain, redness, and discharge, Neck: Negative for injury, pain, and swelling, Cardiovascular: Negative for chest pain, palpitations, and edema, Respiratory: Negative for shortness of breath, cough, wheezing, and pleuritic chest pain, Abdomen/GI: Negative for abdominal pain, nausea, vomiting, diarrhea, and constipation, Back: Negative for injury and pain, Skin: Negative for injury, rash, and discoloration, Neuro: Negative for headache, weakness, numbness, tingling, and seizure, Psych: Negative for depression, anxiety, suicide ideation, homicidal ideation, and hallucinations, Allergy/Immunology: Negative for hives, rash, and allergies, Endocrine: Negative for neck swelling, polydipsia, polyuria, polyphagia, and marked weight changes, 17:30 All other systems are negative, Exam: 17:30 Constitutional: This is a well developed, well nourished patient who is awake, alert, sp3 and in no acute distress. Head/Face: Normocephalic, atraumatic. Eyes: Pupils equal round and reactive to light, extra-ocular motions intact. Lids and lashes normal. Conjunctiva and sclera are non-icteric and not injected. Cornea within normal limits. Periorbital areas with no swelling, redness, or edema. Neck: Trachea midline, no thyromegaly or masses palpated, and no cervical lymphadenopathy. Supple, full range of motion without nuchal rigidity, or vertebral point tenderness. No Meningismus. Chest/axilla: Normal chest wall appearance and motion. Nontender with no deformity. No lesions are appreciated. Cardiovascular: Regular rate and rhythm with a normal S1 and S2. No gallops, murmurs, or rubs. Normal PMI, no JVD. No pulse deficits. Respiratory: Lungs have equal breath sounds bilaterally, clear to auscultation and percussion. No rales, rhonchi or wheezes noted. No increased work of breathing, no retractions or nasal flaring. Abdomen/GI: Soft, non-tender, with normal bowel sounds. No distension or tympany. No guarding or rebound. No evidence of tenderness throughout. Back: No spinal tenderness. No costovertebral tenderness. Full range of motion. Skin: Warm, dry with normal turgor. Normal color with no rashes, no lesions, and no evidence of cellulitis. Psych: Awake, alert, with orientation to person, place and time. Behavior, mood, and affect are within normal limits. 17:30 Musculoskeletal/extremity: Left hip shortened and externally rotated and painful to palpation.. 17:30 Neuro: Patient alert and oriented person. Presumably this is her baseline. No other focal gross neurodeficits noted. No signs of head injury., 18:37 ECG was reviewed by the Attending Physician. EKG demonstrates normal sinus rhythm at 62 sp3 bpm with a first-degree AV block with parable 210, poor R wave progression and incomplete left bundle branch block with nonspecific diffuse ST/T changes without evidence of acute ischemia. Vital Signs: 17:07 BP 156 / 70; Pulse 58; Resp 16; Temp 97.1(O); Pulse Ox 98% on 3 lpm NC; jb4 18:14 BP 174 / 69; Pulse 60; Resp 16; Pulse Ox 98% on 3 lpm NC; jb4 19:30 BP 169 / 64; Pulse 60; Resp 16; Pulse Ox 98% on 3 lpm NC; jb4 20:15 BP 167 / 92; Pulse 64; Resp 15; Pulse Ox 98% on 3 lpm NC; jb4 MDM: 17:07 Medical Screening Exam initiated sp3 17:31 ED course: 79-year-old female with left hip fracture versus contusion versus other sp3 acetabular injury. Patient will need to be admitted. Preop workup ordered as well as hip x-ray.. 18:37 Data reviewed: vital signs, radiologic studies. ED course: X-ray demonstrates left sp3 intertrochanteric fracture. Discussed with Dr. Levin. Patient will be admitted to Dr. Ferris internal medicine.. 05/20 17:07 Order name: Basic Metabolic Panel; Complete Time: 18:02 sp3 05/20 17:07 Order name: CBC with Diff; Complete Time: 18:09 sp3 05/20 17:07 Order name: LFT's; Complete Time: 18:02 sp3 05/20 17:07 Order name: PT-INR; Complete Time: 18:02 sp3 05/20 17:07 Order name: Troponin HS; Complete Time: 18:02 sp3 05/20 19:12 Order name: Magnesium EDMS 05/20 19:12 Order name: Phosphorus EDMS 05/20 19:12 Order name: Urinalysis w/ reflexes EDMS 05/20 19:12 Order name: Basic Metabolic Panel EDMS 05/20 19:13 Order name: Basic Metabolic Panel EDMS 05/20 19:13 Order name: CBC with Automated Diff EDMS 05/20 19:13 Order name: CBC with Automated Diff EDMS 05/20 17:07 Order name: Hip Left 2 View XRAY; Complete Time: 18:35 sp3 05/20 18:26 Order name: XRAY Chest (1 view); Complete Time: 18:35 ss 05/20 17:07 Order name: EKG; Complete Time: 17:08 sp3 05/20 17:07 Order name: Cardiac monitoring; Complete Time: 18:14 sp3 05/20 17:07 Order name: EKG - Nurse/Tech; Complete Time: 18:14 sp3 05/20 17:07 Order name: IV Saline Lock; Complete Time: 17:22 sp3 05/20 17:07 Order name: Labs collected and sent; Complete Time: 17:22 sp3 05/20 17:07 Order name: O2 Per Protocol; Complete Time: 17:22 sp3 05/20 17:07 Order name: O2 Sat Monitoring; Complete Time: 17:22 sp3 05/20 17:08 Order name: NPO; Complete Time: 17:22 sp3 Administered Medications: 18:12 Drug: Ondansetron IVP 4 mg IVP once; over 2 minutes Route: IVP; Site: right antecubital;jb4 18:30 Follow up: Response: No adverse reaction jb4 18:13 Drug: morphine IVP or IV 2 mg IVP once over 4 mins Route: IVP; Infused Over: 4 mins; jb4 Site: right antecubital; 19:00 Follow up: Response: No adverse reaction; Marked relief of symptoms; Pain is decreased jb4 Disposition Summary: 05/20/24 18:40 Hospitalization Ordered Notes: Hospitalization Status: Inpatient Admission sp3 Provider: [place] sp3 [facility] sp3 Condition: Stable sp3 Problem: new sp3 Symptoms: have worsened sp3 Bed/Room Type: Standard 3 Room Assignment: [facility](05/20/24 19:58) jb4 Diagnosis - Left intertrochanteric hip fracture, mechanical fall sp3 Forms: - Medication Reconciliation Form sp3 - SBAR form sp3 - Leadership Thank You Letter sp3 Signatures: Dispatcher [employer] Brooks Faustin RN RN jb4 Fouzia De Jesus MD MD sp3 Mallory Calvo f Corrections: (The following items were deleted from the chart) 19:17 18:40 sp3 kmf 19:58 19:17 408 kmf jb4
--- NOTE | 2024-05-20 18:40 | ER ---
Nurse's Notes [facility] Name: Kaitlynn Snider Age: 79 yrs Sex: Female : 1945 Arrival Date: 05/20/2024 Time: 17:04 Bed 25 Private MD: Diagnosis: Left intertrochanteric hip fracture, mechanical fall Presentation: 05/20 17:07 Chief complaint: EMS states: Pt had a witnessed fall in the dining room. The other jb4 resident reports pt fell straight back. Left lower extremity is shortened and externally rotated. Pt reports pain to left lower extremity, left arm , and her head. There is bruising noted to the left thigh. Pt was given 50mcg of fentanyl via 20g to the RAC. Coronavirus screen: At this time, the client does not indicate any symptoms associated with coronavirus-19. Ebola Screen: No symptoms or risks identified at this time. Initial Sepsis Screen: Does the patient meet any 2 criteria? No. Patient's initial sepsis screen is negative. Does the patient have a suspected source of infection? No. Patient's initial sepsis screen is negative. Risk Assessment: Do you want to hurt yourself or someone else? Patient reports no desire to harm self or others. Onset of symptoms was May 20, 2024. Transition of care: patient was not received from another setting of care. 17:07 Method Of Arrival: EMS: [facility] 4 17:07 Acuity: RHINA 3 jb4 Triage Assessment: 17:09 General: Appears in no apparent distress. uncomfortable, Behavior is calm, cooperative. jb4 Pain: Complains of pain in left arm and left leg Pain does not radiate. Pain currently is 8 out of 10 on a pain scale. Neuro: Level of Consciousness is awake, alert, obeys commands, Oriented to person, place, situation. Cardiovascular: Patient's skin is warm and dry. Pulses are 3+ in left dorsalis pedis artery. Respiratory: Airway is patent Respiratory effort is even, unlabored, Respiratory pattern is regular, symmetrical, Pt normally on 3L NC. Derm: Skin appears to have some break down in the sacral area. Skin is pink, warm \T\ dry. Bruising that is dark purple, green, on left quadriceps. Musculoskeletal: Range of motion: limited in left hip Bony deformity noted of left leg. 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 - Infectious Disease History:: Denies. - Social history:: Smoking status: Patient denies any tobacco usage or history of. Screenin:30 [facility] ED Fall Risk Assessment (Adult) History of falling in the last 3 months, jb4 including since admission Yes- single mechanical fall (1 pt) Confusion or Disorientation Yes (5 pts) Intoxicated or Sedated No (0 pts) Impaired Gait Yes (1 pt) Mobility Assist Device Used No (0 pt) Altered Elimination Yes (1 pt) Score/Fall Risk Level 3 or more points = High Risk Oriented to surroundings, Maintained a safe environment. Abuse screen: Denies threats or abuse. Nutritional screening: No deficits noted. Tuberculosis screening: No symptoms or risk factors identified. Assessment: 18:14 Reassessment: Patient appears in no apparent distress at this time. Patient and/or jb4 family updated on plan of care and expected duration. Pain level reassessed. Patient is alert, oriented x 3, equal unlabored respirations, skin warm/dry/pink. 19:00 Reassessment: Patient appears in no apparent distress at this time. Patient and/or jb4 family updated on plan of care and expected duration. Pain level reassessed. Patient is alert, oriented x 3, equal unlabored respirations, skin warm/dry/pink. 20:00 Reassessment: Patient appears in no apparent distress at this time. Patient and/or jb4 family updated on plan of care and expected duration. Pain level reassessed. Patient is alert, oriented x 3, equal unlabored respirations, skin warm/dry/pink. Vital Signs: 17:07 BP 156 / 70; Pulse 58; Resp 16; Temp 97.1(O); Pulse Ox 98% on 3 lpm NC; jb4 18:14 BP 174 / 69; Pulse 60; Resp 16; Pulse Ox 98% on 3 lpm NC; jb4 19:30 BP 169 / 64; Pulse 60; Resp 16; Pulse Ox 98% on 3 lpm NC; jb4 20:15 BP 167 / 92; Pulse 64; Resp 15; Pulse Ox 98% on 3 lpm NC; jb4 ED Course: 17:07 Patient arrived in ED. sp3 17:07 Fouzia De Jesus MD is Attending Physician. sp3 17:09 Triage completed. jb4 17:09 Arm band placed on right wrist. jb4 17:22 Troponin HS Sent. jb4 17:22 PT-INR Sent. jb4 17:22 LFT's Sent. jb4 17:22 CBC with Diff Sent. jb4 17:23 Basic Metabolic Panel Sent. jb4 17:30 Patient has correct armband on for positive identification. Placed in gown. Bed in low jb4 position. Call light in reach. Side rails up X 1. Provided Education on: plan of care. 18:12 Brooks Anguiano, RN is Primary Nurse. jb4 18:31 Hip Left 2 View XRAY In Process Unspecified. EDMS 18:31 XRAY Chest (1 view) In Process Unspecified. EDMS 18:39 Prince Brian MD is Hospitalizing Provider. sp3 20:31 No provider procedures requiring assistance completed. Patient admitted, IV remains in jb4 place. Administered Medications: 18:12 Drug: Ondansetron IVP 4 mg IVP once; over 2 minutes Route: IVP; Site: right antecubital;jb4 18:30 Follow up: Response: No adverse reaction jb4 18:13 Drug: morphine IVP or IV 2 mg IVP once over 4 mins Route: IVP; Infused Over: 4 mins; jb4 Site: right antecubital; 19:00 Follow up: Response: No adverse reaction; Marked relief of symptoms; Pain is decreased jb4 Outcome: 18:40 Decision to Hospitalize by Provider. sp3 20:31 Admitted to Tele accompanied by tech, via stretcher, room 402, with chart, jb4 20:31 Condition: stable 20:31 Discharge instructions given to patient, Instructed on the need for admit, Demonstrated understanding of instructions, 20:38 Patient left the ED. jb4 Signatures: Dispatcher [employer] EDMS Brooks Anguiano, KARL RN jb4 Fouzia De Jesus MD MD sp3 Corrections: (The following items were deleted from the chart) 18:15 17:07 BP 156 / 70; Pulse 58bpm; Resp 16bpm; Pulse Ox 98% RA; Temp 97.1F Oral; jb4 jb4 : 17:09 Derm: Skin is intact, Skin is pink, warm \T\ dry. Bruising that is dark purple, jb4 green, on left quadriceps jb4 17:09 Cardiovascular: Patient's skin is warm and dry. Pulses are 3+ in left dorsalis jb4 pedis artery jb4
[2024-05-20] MEDS ORDERED: ONDANSETRON 4 MG/2 ML VIAL IV PRN (19:08)
[2024-05-20] MEDS ORDERED: ALBUTEROL 2.5 MG/3 ML NEB SOL NEB PRN (19:08)
[2024-05-20] MEDS ORDERED: IPRATROPIUM BROM 0.5MG/2.5ML NEB PRN (19:08)
[2024-05-20] MEDS: ENOXAPARIN 30 MG/0.3 ML SQ SCH (19:08)
[2024-05-20] MEDS ORDERED: ACETAMINOPHEN 500 MG TAB PO PRN (19:08)
[2024-05-20] MEDS ORDERED: GLUCAGON 1 MG/VIAL IM PRN (19:15)
[2024-05-20] MEDS ORDERED: D10W 125 ML IV PRN (19:15)
--- NOTE | 2024-05-20 19:15 | P.HP ---
Certification for Inpatient Patient admitted to: Inpatient With expected LOS: >2 Midnights Practitioner: I am a practitioner with admitting privileges, knowledge of patient current condition, hospital course, and medical plan of care. Services: Services provided to patient in accordance with Admission requirements found in Title 42 Section 412.3 of the Code of Federal Regulations Patient History Date of Service: 05/20/24 Reason for admission: Left hip fracture History of Present Illness: Patient is a 79-year-old female brought in to the ER via EMS following a ground- level fall. She fell onto her left side while trying to ambulate. Patient is a [facility]. She suffered a left hip injury which appears deformed. Additional workup in the ER revealed a left femur intertrochanteric fracture. Dr. Levin from orthopedic surgery has been consulted. During my evaluation, found the patient very hard of hearing. She also has some cognitive impairment. She is supposed to be wheelchair-bound but reportedly try to ambulate by herself. This is the reason for her fall. Allergies No Known Allergies Allergy (Unverified 05/23/21 06:12) Home Medications: Allopurinol 300 mg PO DAILY AT SUPPER 09/17/23 Aspirin [Vazalore] 81 mg PO DAILY 09/17/23 Buspirone HCl [Buspar] 10 mg PO TID 09/17/23 Cetirizine HCl [Zyrtec*] 10 mg PO DAILY 09/17/23 Cholecalciferol (Vitamin D3) [Vitamin D3] 1,000 units PO NOON 09/17/23 Doxazosin Mesylate 4 mg PO BID 09/17/23 Escitalopram [Lexapro*] 10 mg PO DAILY 09/17/23 Gabapentin [Neurontin*] 300 mg PO BID 09/17/23 Hydralazine HCl 50 mg PO TID 09/17/23 Insulin Glargine,Hum.rec.anlog [Lantus] 10 units SQ DAILY 09/17/23 Magnesium Oxide [Magnesium] 400 mg PO NOON 09/17/23 Montelukast [Singulair*] 10 mg PO DAILY 09/17/23 Furosemide [Lasix*] 20 mg PO DAILY 30 Days #30 tab 11/22/23 Losartan Potassium [Cozaar*] 50 mg PO BID 11/22/23 Nebivolol HCl [Bystolic*] 10 mg PO DAILY tab 11/22/23 cloNIDine HCL [Catapres*] 0.1 mg PO BID PRN 30 Days #60 tab 11/22/23 Ipratropium Neb [Atrovent*] 0.2 mg IH Q6H PRN 30 Days #120 ml 12/22/23 Cefdinir [Cefdinir*] 300 mg PO BID 10 Days #20 cap 02/13/24 - Past Medical/Surgical History Diabetic: Yes -: HTN -: HLD -: COPD-with home O2 -: DM II -: Diastolic CHF -: tonsilectomy -: R leg plates/pin -: dilation and curettage Psychosocial/ Personal History: patient lives at [facility] - Family History Mother -: Lung disease Father -: Diabetes - Social History Alcohol use: No CD- Drugs: No Caffeine use: No Physical Examination - Physical Exam General: Obese, Other (Very hard of hearing, disoriented) Respiratory: Clear to auscultation bilaterally, Normal air movement Cardiovascular: No edema, Normal pulses, Regular rate/rhythm, Normal S1 S2 Neurological: Dementia - Studies Laboratory Data (last 24 hrs) 05/20/24 05/20/24 05/20/24 17:19 17:19 17:19 WBC 9.90 Hgb 11.1 L Hct 33.7 L Plt Count 174 PT 11.5 INR 1.01 Sodium 135 L Potassium 4.1 BUN 39 H Creatinine 2.27 H Glucose 313 H Total Bilirubin 0.3 AST 21 ALT 24 Alkaline Phosphatase 95 Assessment and Plan - Problems (Diagnosis) (1) Congestive heart failure Current Visit: Yes Status: Acute (2) Fracture, intertrochanteric, left femur Current Visit: Yes Status: Acute (3) RAYNE (acute kidney injury) Current Visit: No Status: Acute (4) Obesity (BMI 30-39.9) Current Visit: No Status: Acute - Plan Assessment This is a 79-year-old female who is being admitted following a ground-level fall that resulted in left intertrochanteric hip fracture. Patient does have evidence of renal insufficiency. Dr. Levin from orthopedic surgery has been consulted. Left intertrochanteric femur fracture CKD Congestive heart failure COPD Anemia Plan: Will admit inpatient with telemetry N.p.o. after midnight Hold off on normal saline infusion to avoid volume overload Orthopedic surgery has been consulted Multimodal pain regimen PT/OT before discharge Resume rest of home medication upon reconciliation - Advance Directives Does patient have a Living Will: No Does patient have a Durable POA for Healthcare: No
[2024-05-20] MEDS: INSULIN REGULAR (HUMAN) 100 UNIT/ML SQ SCH (21:49)
[2024-05-20] MEDS: NA CHLORIDE 0.9% 1,000 ML IV SCH (21:50)
[2024-05-20 22:04] VITALS: BMI 35.4
[2024-05-21] MEDS: HYDROMORPHONE HCL 1 MG/ML INJ IV PRN (00:18)
[2024-05-21] MEDS ORDERED: cloNIDine HCL 0.1 MG TAB PO PRN (00:57)
[2024-05-21] MEDS ORDERED: IPRATROPIUM BROM 0.5MG/2.5ML IH PRN ×2 (00:57→16:05)
[2024-05-21] MEDS ORDERED: LOPERAMIDE HCL 2 MG CAPSULE PO PRN (00:57)
[2024-05-21] MEDS ORDERED: D50W 25 GM/50 ML SYRINGE IV PRN (00:57)
[2024-05-21] MEDS ORDERED: guaiFENesin 100 MG/5 ML UCUP PO PRN (00:57)
[2024-05-21] MEDS ORDERED: GLUCAGON 1 MG/VIAL IM PRN (00:57)
[2024-05-21] MEDS: HYDRALAZINE HCL 25 MG TABLET PO SCH (01:01)
[2024-05-21] MEDS: HYDRALAZINE HCL 20 MG/ML VIAL IV PRN (07:56)
[2024-05-21] MEDS: ASPIRIN EC 81 MG TAB PO SCH (07:57)
[2024-05-21] MEDS: GABAPENTIN 100 MG CAP PO SCH (07:58)
[2024-05-21] MEDS: BUSPIRONE HCL 5 MG TABLET PO SCH (07:58)
[2024-05-21] MEDS: INSULIN GLARGINE 100 UNIT/ML SQ SCH (07:58)
[2024-05-21] MEDS: MULTIVITAMIN TAB PO SCH (07:58)
[2024-05-21] MEDS: FAMOTIDINE 20 MG TAB PO SCH (07:58)
[2024-05-21] MEDS: ESCITALOPRAM 20 MG TAB PO SCH (07:58)
[2024-05-21] MEDS: DOXAZOSIN 4 MG TAB PO SCH (07:58)
[2024-05-21] MEDS: NEBIVOLOL HCL 5 MG TAB PO SCH (07:58)
[2024-05-21] MEDS: MONTELUKAST 10 MG TAB PO SCH (07:59)
[2024-05-21] MEDS: CETIRIZINE HCL 5 MG TABLET PO SCH (07:59)
--- NOTE | 2024-05-21 08:37 | RAD REPORT ---
EXAM:Femur Left CLINICAL HISTORY: Left leg pain FINDINGS: Intertrochanteric fracture involves the left femur. Avulsion lesser trochanter. Fracture probably ext ends to the greater trochanter. Angulation present at the fracture site. No additional femoral fracture seen.
[2024-05-21] MEDS: NA CHLORIDE 0.9% 1,000 ML ONE (09:53)
[2024-05-21] MEDS ORDERED: FENTANYL CITR 100 MCG/2 ML ONE (10:16)
[2024-05-21] MEDS ORDERED: LIDOCAINE 2% MPF 5 ML VIAL ONE (10:16)
[2024-05-21] MEDS ORDERED: ONDANSETRON 4 MG/2 ML VIAL ONE (10:16)
[2024-05-21] MEDS ORDERED: propofoL 200 MG/20 ML VIAL IV ONE (10:16)
[2024-05-21] MEDS ORDERED: dexAMETHasone 4 MG/ML VIAL ONE (11:22)
[2024-05-21] MEDS: CEFAZOLIN SODIUM 2 GM/VIAL ONE (11:32)
[2024-05-21] MEDS ORDERED: EPHEDRINE SULF 50 MG/ML VIAL ONE (11:40)
[2024-05-21] MEDS: MAGNESIUM OXIDE 400 MG TAB PO SCH (12:00)
[2024-05-21] MEDS: VITAMIN D 1000 UNIT TAB PO SCH (12:00)
[2024-05-21] MEDS: TRANEXAMIC ACID 1,000 MG/10 ML VIAL IV ONE (12:40)
--- NOTE | 2024-05-21 13:06 | P.BOP ---
Preoperative diagnosis: Left intertrochanteric femur fracture Postoperative diagnosis: Same Primary procedure: Cephalomedullary fixation of left intertrochanteric femur fracture Mortgage Counselor: NONE,NONE Estimated blood loss: 100 cc Specimen: Left none Findings: See dictation Anesthesia: General Complications: None Implants: 9 x 180 mm Biomet affixus nail, 95 mm lag screw, 32 mm screw Fluids & blood products: Per anesthesia record Transferred to: Recovery Room Condition: Good
--- NOTE | 2024-05-21 13:12 | P.OP ---
Preoperative diagnosis: Left intertrochanteric femur fracture Postoperative diagnosis: Same Primary procedure: Cephalomedullary fixation of left intertrochanteric femur fracture Anesthesia: General Estimated blood loss: 100 cc Specimen: None Findings: See dictation Operative Technique: Indication For Procedure: Kaitlynn is a 79-year-old female who presented to the ER after sustaining a fall with subsequent pain to the left hip. X-rays demonstrated a displaced left intertrochanteric femur fracture. I discussed with the patient at length the diagnosis as well as treatment options. Given the displaced fracture and the fracture pattern, I elected to proceed with cephalomedullary fixation of the left intertrochanteric femur fracture. Description Of Procedure: After informed consent was obtained, the patient was identified in the preoperative holding area. The left lower extremity was marked. The patient was then brought back to the operative room, transferred to the operating table in supine fashion, placed under general LMA anesthesia. The patient was placed on the fracture table with her extremities well padded. The left lower extremity was manipulated on the fracture table, and fluoroscopy was used to ensure proper reduction of the fracture. Once fracture was reduced, the left lower extremity was prepped and draped in usual sterile fashion. A time-out was initiated. The correct patient and procedure were confirmed and identified. The patient did receive her preoperative prophylactic antibiotics. Approximately, a 5 cm longitudinal incision was made just proximal to the greater trochanter. Dissection was taken down through the tensor fascia zhang. A guide pin was then placed on the tip of the greater trochanter and down the femoral canal in an antegrade fashion. Proper positioning was confirmed using fluoroscopy. Anterior reamer was placed over the guide pin, followed by a ball-tipped guidewire down the femoral canal to the distal femur. The femoral canal was then reamed in 1 mm increments starting at 9 mm reamer to a 10.5 mm reamer with good fit. At that point, an 9 mm x 180 mm femoral nail was selected with a 125-degree neck angle as calculated using preoperative imaging. A guide pin was then placed down over the lateral hip into the center-center position on the femoral head, confirming the location was femoral with fluoroscopy. A second guide pin was then placed just superior to that pin in the superior aspect of the femoral head and neck for anti-rotation purposes. The center-center pin was measured and a size 95 mm lag screw was selected. A 95 mm lag screw was placed. Next, fluoroscopy was used to confirm proper positioning. Using the implant jig, a single interlocking screw was placed in distal static position. It was placed in bicortical manner. The wounds were then irrigated thoroughly with normal saline. The femoral implant was locked into position and the jig was removed. The deep tissue was approximated using 0 Vicryl. Subcutaneous tissue was approximated using a 2-0 Vicryl. Skin was approximated using thony. Sterile dressings were applied. The patient was brought off the fracture table and placed back onto her bed in supine position without complication. Postoperative Plan: The patient will be touchdown weightbearing to the left lower extremity for the first 6 weeks. She will follow up in my clinic in 2 weeks for wound check and staple removal. Complications: None Implants: 9 x 180 mm Affixus nail, 95 mm lag screw, 32 mm screw Fluids & blood products: Per anesthesia record Transferred to: Recovery Room Condition: Good
[2024-05-21] MEDS: HYDROMORPHONE HCL 1 MG/ML INJ ONE (13:37)
[2024-05-21] MEDS ORDERED: DOCUSATE NA 100 MG CAP PO PRN (13:41)
[2024-05-21] MEDS: INSULIN REGULAR (HUMAN) 100 UNIT/ML ONE (14:18)
--- NOTE | 2024-05-21 14:26 | RAD REPORT ---
EXAMINATION: XR LEFT HIP CLINICAL INDICATION: . postop TECHNIQUE: Multiple views of the left hip were obtained. COMPARISON: 05/20/2024 FINDINGS: Proximal femoral nail has been placed in the proximal left femur. Skin thony are noted. N o unexpected immediate postoperative finding.
--- NOTE | 2024-05-21 14:44 | RAD REPORT ---
EXAM: Fluoroscopy use, Hip in OR Left 2 View HISTORY: LEFT HIP RODDING COMPARISON: None FINDINGS: Multiple images were sent to PACS, during a fluoroscopically guided procedure. No radiologi st was involved in protocoling or performance of the study, and no radiologist was present for the duration of the procedure. No interpretation of the saved images will be provided. Total fluoroscopy time: 0.8 minutes. IMPRESSION: Documentation of fluoroscopy use as above.
[2024-05-21 15:00] LABS: Absolute Lymphocytes (CBC) 0.8 K/uL (0.7-4.9); Absolute Monocytes 0.1 K/uL (0.1-1.3); Basophils % 0.3 % (0-1.3); Hematocrit 29.9 % (36.0-45.0); Hemoglobin 9.6 g/dL (12.0-15.0); Lymphocytes % 5.3 % (15.3-44.8); MCH 29.9 pg (27.0-35.0); MCHC 32.2 g/dL (32.0-36.0); MCV 92.9 fL (80-100); MPV 10.3 fL (7.6-11.3); Monocytes % 0.4 % (3.3-12.3); Platelets 158 thou/uL (152-406); RBC Red Blood Cell Count 3.21 M/uL (3.86-4.86)
[2024-05-21 15:13] LABS: Anion Gap 13.2 mEq/L (5.0-15.0); Magnesium 1.8 mg/dL (1.6-2.4); Phosphorus 4.5 mg/dL (2.5-4.9); Potassium 4.2 mEq/L (3.5-5.1)
--- NOTE | 2024-05-21 15:44 | P.PN ---
Subjective Date of Service: 05/21/24 Chief Complaint: Left hip fracture Status post ORIF today. No issues overnight. No reported agitation. Physical Examination - Vital Signs Temperature: 97.2 F Blood Pressure: 115/48 Pulse: 89 Respirations: 17 Pulse Ox (%): 97 - Studies Laboratory Data (last 24 hrs) 05/20/24 05/20/24 05/20/24 17:19 17:19 17:19 WBC 9.90 Hgb 11.1 L Hct 33.7 L Plt Count 174 PT 11.5 INR 1.01 Sodium 135 L Potassium 4.1 BUN 39 H Creatinine 2.27 H Glucose 313 H Total Bilirubin 0.3 AST 21 ALT 24 Alkaline Phosphatase 95 Assessment And Plan - Plan Physical examination General: Alert, NAD, HEENT: Conjunctiva not pale, anicteric sclera Neck: Supple, no elevated JVD Heart: Heart sounds 1 and 2 normal, regular rhythm, normal rate, no pedal edema Lungs: Clear to auscultation bilaterally, adequate breath sounds bilaterally, no rhonchi or crackles. Abdomen: Soft, nondistended, nontender, normal bowel sounds. Extremities: No tenderness, no deformity Skin: Normal skin turgor, no rash, no nodules or ulcers. Neuro: No focal motor deficit. Normal speech. Psychiatry: Normal mood, no agitation. Diagnosis Left intertrochanteric femur fracture CKD Congestive heart failure COPD Anemia Essential hypertension Plan: Status post ORIF with intramedullary nailing. Orthopedic Dr. Levin input appreciated. Analgesics as needed. DVT prophylaxis to start in the a.m.. PT consult. Orthopedic surgery has been consulted Continue home medications. Noted drop in hemoglobin from 11 to 9.6. Monitor H&H and transfuse as needed for hemoglobin less than 7. Continue home antihypertensives.
[2024-05-21] MEDS: NA CHLORIDE 0.9% 1,000 ML IV SCH (15:46)
[2024-05-21 15:55] LABS: Blood Morphology Comment NOT SEEN (NOT SEEN); Platelet Estimate ADEQ; White Blood Cell Scan OK (OK)
[2024-05-21] MEDS ORDERED: ALBUTEROL 2.5 MG/3 ML NEB SOL NEB PRN (16:05)
[2024-05-21] MEDS: CEFAZOLIN SODIUM 2 GM in NA CHLORIDE 0.9% 100 ML IVPB SCH (16:25)
[2024-05-21] MEDS: allopurinoL 300 MG TAB PO SCH (16:28)
[2024-05-22] MEDS: ACETAMINOPHEN 325 MG TABLET PO PRN (02:42)
[2024-05-22 05:51] LABS: Absolute Basophils 0.1 K/uL (0-0.5); Absolute Lymphocytes (CBC) 0.8 K/uL (0.7-4.9); Absolute Monocytes 0.8 K/uL (0.1-1.3); Basophils % 0.5 % (0-1.3); Hematocrit 25.4 % (36.0-45.0); Hemoglobin 8.3 g/dL (12.0-15.0); Lymphocytes % 5.7 % (15.3-44.8); MCH 29.9 pg (27.0-35.0); MCHC 32.6 g/dL (32.0-36.0); MCV 91.7 fL (80-100); Monocytes % 5.9 % (3.3-12.3); Neutrophils % 87.9 % (41.7-73.7); Platelets 152 thou/uL (152-406); RBC Red Blood Cell Count 2.77 M/uL (3.86-4.86); Red Cell Distribution Width 16.1 % (12.1-15.2)
[2024-05-22 06:02] LABS: Anion Gap 9.7 mEq/L (5.0-15.0); Potassium 4.7 mEq/L (3.5-5.1)
[2024-05-22] MEDS: HYDROCODONE/APAP 5/325 MG TAB PO PRN (08:27)
--- NOTE | 2024-05-22 12:35 | EKG ---
Test Date: 2024-05-20 Test Time: 18:00:20 Marketing Specialist: CECY MEASUREMENT RESULTS: Intervals: Rate: 62 AK: 210 QRSD: 92 QT: 454 QTc: 460 Troup: P: 65 AK: 210 QRS: -58 T: 149 INTERPRETIVE STATEMENTS: Sinus rhythm with sinus arrhythmia with 1st degree AV block Left axis deviation Anteroseptal infarct, age undetermined Abnormal ECG Compared to ECG 03/01/2024 20:12:13 Left-axis deviation now present Myocardial infarct finding still present Electronically Signed On 05-22-24 12:26:53 CDT by Brian Petty
--- NOTE | 2024-05-22 14:35 | P.PN ---
Subjective Date of Service: 05/22/24 Chief Complaint: Left hip fracture Subjective: Working w/ PT Physical Examination - Vital Signs Temperature: 99.1 F Blood Pressure: 113/45 Pulse: 78 Respirations: 18 Pulse Ox (%): 94 - Physical Exam General: In no apparent distress Musculoskeletal: Other (Left lower extremity: dressing clean dry and intact; moves toes grossly; brisk cap refill all digits) Assessment And Plan - Plan Kaitlynn is a 79-year-old female status post left hip nail postoperative day #1 -Lovenox for DVT prophylaxis -Acute expected postoperative blood loss anemia; continue to monitor H&H -PT to mobilize for transfers; touchdown weightbearing left lower extremity
--- NOTE | 2024-05-22 16:13 | P.PN ---
Subjective Date of Service: 05/22/24 Chief Complaint: Left hip fracture No issues overnight. No reported agitation. Patient is awake, however minimally verbal. Physical Examination - Vital Signs Temperature: 99.1 F Blood Pressure: 113/45 Pulse: 78 Respirations: 18 Pulse Ox (%): 94 Assessment And Plan - Plan Physical examination General: Awake, interactive. HEENT: Conjunctiva not pale, anicteric sclera Heart: Heart sounds 1 and 2 normal, regular rhythm, normal rate, no pedal edema Lungs: Clear to auscultation bilaterally, adequate breath sounds bilaterally, no rhonchi or crackles. Abdomen: Soft, nondistended, nontender, normal bowel sounds. Extremities: No swelling. Skin: Normal skin turgor, no rash, no nodules or ulcers. Neuro: No focal motor deficit. Psychiatry: Normal mood, no agitation. Diagnosis Left intertrochanteric femur fracture CKD Congestive heart failure COPD Acute blood loss anemia Essential hypertension Plan: Left intertrochanteric femur fracture Status post ORIF with intramedullary nailing by Dr. Levin. Patient is wheelchair-bound at baseline. Analgesics as needed. Continue PT. Acute blood loss anemia Hemoglobin dropped from 11.1 to 8.3. Monitor and transfuse as needed for hemoglobin less than 7. Essential hypertension Patient is currently normotensive. Continue hydralazine COPD Stable Bronchodilators as needed DVT prophylaxis: Lovenox SQ Advanced directive: Full code
[2024-05-23 06:44] LABS: Absolute Eosinophils 0.2 K/uL (0-0.5); Absolute Monocytes 0.6 K/uL (0.1-1.3); Absolute Neutrophil 8.4 K/uL (1.8-8.0); Basophils % 0.4 % (0-1.3); Eosinophils % 1.9 % (0-4.4); Hematocrit 24.9 % (36.0-45.0); Hemoglobin 7.9 g/dL (12.0-15.0); MCH 29.7 pg (27.0-35.0); MCHC 31.8 g/dL (32.0-36.0); MCV 93.5 fL (80-100); MPV 9.8 fL (7.6-11.3); Monocytes % 6.2 % (3.3-12.3); Neutrophils % 81.5 % (41.7-73.7); Platelets 139 thou/uL (152-406); RBC Red Blood Cell Count 2.66 M/uL (3.86-4.86); Red Cell Distribution Width 16.5 % (12.1-15.2)
[2024-05-23 06:57] LABS: Anion Gap 6.2 mEq/L (5.0-15.0); Potassium 4.2 mEq/L (3.5-5.1)
--- NOTE | 2024-05-23 16:27 | P.PN ---
Subjective Date of Service: 05/23/24 Chief Complaint: Left hip fracture No issues overnight. No agitation Patient is minimally verbal and not able to provide any subjective complaint. She is tolerating diet. Physical Examination - Vital Signs Temperature: 98.2 F Blood Pressure: 101/59 Pulse: 76 Respirations: 18 Pulse Ox (%): 97 Assessment And Plan - Plan Physical examination General: Awake, interactive. NAD Heart: Heart sounds 1 and 2 normal, regular rhythm, normal rate, no pedal edema Lungs: Clear to auscultation bilaterally, adequate breath sounds bilaterally, no rhonchi or crackles. Abdomen: Soft, nondistended, nontender, normal bowel sounds. Extremities: No swelling. Skin: Normal skin turgor, no rash. Neuro: No focal motor deficit. Psychiatry: No agitation. Diagnosis Left intertrochanteric femur fracture CKD Congestive heart failure COPD Acute blood loss anemia Essential hypertension Plan: Left intertrochanteric femur fracture Status post ORIF with intramedullary nailing by Dr. Levin. Patient is wheelchair-bound at baseline. Analgesics as needed. Continue PT. Acute blood loss anemia Hemoglobin dropped from 11.1 to 8.3. Monitor and transfuse as needed for hemoglobin less than 7. Essential hypertension Patient is currently normotensive. Continue hydralazine COPD Stable Bronchodilators as needed 05/23 Hemoglobin continues to drop and now at 7.9 Continue to monitor H&H and transfuse as needed for hemoglobin less than 7 Analgesics as needed Continue PT. Anticipating discharge to the long term once hemoglobin is stable. DVT prophylaxis: Lovenox SQ Advanced directive: Full code
[2024-05-24] MEDS: MORPHINE 2 MG/ML SYR IV PRN (04:03)
[2024-05-24 08:35] VITALS: O2SAT 96
[2024-05-24 10:45] LABS: Specific Gravity 1.015 (1.005-1.030); Sqamous Epithelial <5 /HPF (None Seen); Urine Bacteria None Seen /HPF (<20); Urine Bilirubin NEGATIVE (Negative); Urine Blood Negative (Negative); Urine Clarity Turbid (Clear); Urine Color Light-Yellow (Yellow); Urine Culture Reflex Order REFLEXED; Urine Glucose NEGATIVE (Negative); Urine Ketones NEGATIVE (Negative); Urine Microscopic Reflex YN ORDER UMIC; Urine Mucus Slight /HPF (None Seen); Urine Nitrite NEGATIVE (Negative); Urine Protein TRACE (Negative); Urine RBC <5 /HPF (None Seen); Urine Urobilinogen Normal (Normal); Urine Yeast (Budding) Trace /HPF (None Seen); Urine pH 5.5 (5.0-7.0)
[2024-05-24 16:14] VITALS: BP 150/57; TEMP 98.6
[2024-05-24 16:27] LABS: Absolute Basophils 0.1 K/uL (0-0.5); Absolute Eosinophils 0.1 K/uL (0-0.5); Absolute Lymphocytes (CBC) 1.2 K/uL (0.7-4.9); Absolute Monocytes 0.7 K/uL (0.1-1.3); Absolute Neutrophil 8.7 K/uL (1.8-8.0); Basophils % 0.7 % (0-1.3); Eosinophils % 1.2 % (0-4.4); Hemoglobin 7.8 g/dL (12.0-15.0); MCHC 32.5 g/dL (32.0-36.0); MCV 92.3 fL (80-100); MPV 10.5 fL (7.6-11.3); Monocytes % 6.2 % (3.3-12.3); Neutrophils % 80.9 % (41.7-73.7); Platelets 146 thou/uL (152-406); RBC Red Blood Cell Count 2.61 M/uL (3.86-4.86); Red Cell Distribution Width 16.3 % (12.1-15.2)
--- NOTE | 2024-05-24 17:29 | P.DS ---
Admission Date: 05/20/24 Discharge Date: 05/24/24 Disposition: TRANSFER TO HALF-WAY Discharge Condition: FAIR Reason for Admission: Left hip fracture Brief History of Present Illness: Patient is a 79-year-old female brought in to the ER via EMS following a ground- level fall. She fell onto her left side while trying to ambulate. Patient is a [facility] resident. She suffered a left hip injury which appears deformed. Additional workup in the ER revealed a left femur intertrochanteric fracture. Dr. Levin from orthopedic surgery was consulted. During my evaluation, found the patient very hard of hearing. She also has some cognitive impairment. She is supposed to be wheelchair-bound but reportedly tried to ambulate by herself. Hospital Course: Patient admitted to the medical floor and the following medical problems addressed: Diagnosis Left intertrochanteric femur fracture CKD Congestive heart failure COPD Acute blood loss anemia Essential hypertension Left intertrochanteric femur fracture Status post ORIF with intramedullary nailing by Dr. Levin. Patient is wheelchair-bound at baseline. Patient treated with morphine and Hills as needed for pain. She has significant cognitive decline, could not follow commands and could not participate in therapy Acute blood loss anemia Hemoglobin dropped from 11 to 7.8 and remained stable Patient did not require blood transfusion Essential hypertension Managed with her home antihypertensives. History of gout Continue with home dose allopurinol. COPD Stable Bronchodilators as needed. Vital Signs/Physical Exam: Temp Pulse Resp BP Pulse Ox 98.6 F 66 15 150/57 H 98 05/24/24 16:00 05/24/24 16:00 05/24/24 16:00 05/24/24 16:00 05/24/24 16:00 General: In no apparent distress, Other (Awake) HEENT: Mucous membr. moist/pink Neck: JVD not distended Respiratory: Clear to auscultation bilaterally, Normal air movement Cardiovascular: Regular rate/rhythm, Normal S1 S2 Gastrointestinal: Soft and benign, Non-distended Integumentary: No breakdown, No cyanosis Neurological: Other (No focal motor deficit) Laboratory Data at Discharge: WBC 10.70 thou/uL (4.3-10.9) 05/24/24 15:45 Hgb 7.8 g/dL (12.0-15.0) L 05/24/24 15:45 Hgb Cancelled 05/24/24 15:45 Hct 24.0 % (36.0-45.0) L 05/24/24 15:45 Hct Cancelled 05/24/24 15:45 Plt Count 146 thou/uL (152-406) L 05/24/24 15:45 PT 11.5 SECONDS (10-13.0) 05/20/24 17:19 INR 1.01 05/20/24 17:19 Sodium 140 mEq/L (136-145) 05/23/24 06:19 Potassium 4.2 mEq/L (3.5-5.1) 05/23/24 06:19 BUN 57 mg/dL (7-18) H 05/23/24 06:19 Creatinine 2.56 mg/dL (0.55-1.02) H 05/23/24 06:19 Glucose 145 mg/dL (74-106) H 05/23/24 06:19 Phosphorus 4.5 mg/dL (2.5-4.9) 05/21/24 14:35 Magnesium 1.8 mg/dL (1.6-2.4) 05/21/24 14:35 Total Bilirubin 0.3 mg/dL (0.2-1.0) 05/20/24 17:19 AST 21 U/L (15-37) 05/20/24 17:19 ALT 24 U/L (13-56) 05/20/24 17:19 Alkaline Phosphatase 95 U/L (45-117) 05/20/24 17:19 Home Medications: Allopurinol 300 mg PO DAILY AT SUPPER 09/17/23 Aspirin [Vazalore] 81 mg PO DAILY 09/17/23 Buspirone HCl [Buspar] 10 mg PO TID 09/17/23 Cetirizine HCl [Zyrtec*] 10 mg PO DAILY 09/17/23 Cholecalciferol (Vitamin D3) [Vitamin D3] 1,000 units PO NOON 09/17/23 Doxazosin Mesylate 4 mg PO BID 09/17/23 Escitalopram [Lexapro*] 10 mg PO DAILY 09/17/23 Gabapentin [Neurontin*] 300 mg PO BID 09/17/23 Hydralazine HCl 75 mg PO TID 09/17/23 Insulin Glargine,Hum.rec.anlog [Lantus] 34 units SQ DAILY 09/17/23 Magnesium Oxide [Magnesium] 400 mg PO NOON 09/17/23 Montelukast [Singulair*] 10 mg PO DAILY 09/17/23 Losartan Potassium [Cozaar*] 50 mg PO BID 11/22/23 Nebivolol HCl [Bystolic*] 10 mg PO DAILY tab 11/22/23 cloNIDine HCL [Catapres*] 0.1 mg PO BID PRN 30 Days #60 tab 11/22/23 Ipratropium Neb [Atrovent*] 0.2 mg IH Q6H PRN 30 Days #120 ml 12/22/23 Acetaminophen [Tylenol] 650 mg PO Q6HP PRN 05/20/24 Famotidine 20 mg PO DAILY 05/20/24 Guaifenesin [Cough Syrup] 10 ml PO Q6HP PRN 05/20/24 Ibuprofen 400 mg PO Q8HP PRN 05/20/24 Insulin Lispro See Protocol SQ ACHS 05/20/24 Loperamide [Imodium*] 2 mg PO Q4HP PRN 05/20/24 Multivitamin [Multiple Vitamins] 1 each PO DAILY 05/20/24 Apixaban [Eliquis] 2.5 mg PO BID #60 tablet 05/24/24 Docusate [Colace Cap*] 200 mg PO DAILY PRN #30 cap 05/24/24 Hydrocodone 5/APAP 325 [Hills 5/325*] 1 tab PO Q4H PRN #15 tab 05/24/24 New Medications: Docusate [Colace Cap*] 200 mg PO DAILY PRN #30 cap PRN Reason: Constipation Apixaban [Eliquis] 2.5 mg PO BID #60 tablet Hydrocodone 5/APAP 325 [Hills 5/325*] 1 tab PO Q4H PRN #15 tab PRN Reason: Pain Scale 5-7 (Moderate) Diet: AHA Activity: Fall precautions Followup: Law Levin MD [ACTIVE - CAN ADMIT] - 1-2 Weeks Cristina Pierce [Primary Care Provider] - Time spent managing pt's care (in minutes): 38
--- NOTE | 2024-05-30 23:00 | CON ---
Date of Consultation: 05/21/2024 Reason For Consultation: Left hip pain. History Of Present Illness: Ms. Snider is a 79-year-old female was brought to the ER after sustaining a fall onto her left side with subsequent pain to the left hip. The patient has had x-rays of the l eft hip in the emergency room that demonstrated a left displaced subtrochanteric femur fracture. The patient normally mobilized using a wheelchair, but was attempting to ambulate when she fell. She re ports pain in the left hip. Otherwise, no other musculoskeletal complaints noted. Review of Systems: As above, otherwise negative. Past Medical History: Includes diabetes, hypertension, hyperlipidemia, COPD, and congestive heart fa ilure. Past Surgical History: Includes tonsillectomy, dilation and curettage, and right lower extremity chuy supriya. Family History: Reviewed and noncontributory. Social History: Denies tobacco, alcohol, or drug use. Medications: Per medication reconciliation form. Physical Examination: General: No apparent distress. HEENT: Normocephalic and atraumatic. Neck: Supple. Cardiovascular: Brisk cap refill to all digits. Chest: Nonlabored breathing. Abdomen: Nondistended. Psychiatric: Responsive to exam Musculoskeletal: Bilateral upper extremities, functional range of motion without pain. No gross def ormities. No obvious dislocations. Right lower extremity, functional range of motion without pain. No gross deformities. No obvious dislocations. Left lower extremity pain with range of motion of l eft hip, tenderness to palpation over the left hip. Diagnostic Studies: X-rays of the left hip demonstrated a displaced left intertrochanteric femur fra cture. Assessment And Plan: Ms. Snider is a female with a left intertrochanteric femur fracture. I discusse d with the patient at length as well as her family risks and benefits associated with operative and n onoperative measures. Given her pain as well as her new acute injury, recommended cephalomedullary f ixation of the left intertrochanteric femur fracture. Risks and benefits associated with the procedu re discussed with the patient and family at length and they expressed understanding. I will proceed with surgery later today and physical therapy will be consulted postoperatively to aid with mobilizat ion. CV/MODL Voice ID: [id number] Report ID: [id number]
== END 2024-05-24 18:16 | DRG 481 ==
LOC: ER 17:04 → ERHOLD 19:08 → 4TH 19:46
PROVIDERS: ADMIT Internal Medicine; ATTEND Internal Medicine
PROC: 0QS706Z Reposition Left Upper Femur with Intramedullary Internal Fixation Device, Open Approach (ICD-10-PCS; principal; 2024-05-21 11:00)
DX: S72.142A Displaced intertrochanteric fracture of left femur, initial encounter for closed fracture (principal); D62 Acute posthemorrhagic anemia; I13.0 Hypertensive heart and chronic kidney disease with heart failure and stage 1 through stage 4 chronic kidney disease, or unspecified chronic kidney disease; I50.32 Chronic diastolic (congestive) heart failure; N17.9 Acute kidney failure, unspecified; D63.1 Anemia in chronic kidney disease; E11.22 Type 2 diabetes mellitus with diabetic chronic kidney disease; J44.9 Chronic obstructive pulmonary disease, unspecified; N18.30 Chronic kidney disease, stage 3 unspecified; E66.9 Obesity, unspecified; E87.5 Hyperkalemia; F09 Unspecified mental disorder due to known physiological condition; G47.30 Sleep apnea, unspecified; W18.30XA Fall on same level, unspecified, initial encounter; Y92.129 Unspecified place in nursing home as the place of occurrence of the external cause; Z68.35 Body mass index [BMI] 35.0-35.9, adult; Z99.81 Dependence on supplemental oxygen
CPT/HCPCS: 36415; 71045; 80048; 80076; 81001; 82947; 83735; 84100; 84484; 85025; 85610; 87086; 87088; 93005; 94010; 96374; 96375; 97165; 99285; J0360; J1100; J1171; J1650; J1815; J2003; J2270; J2405; J2704; J3010; J7030

== ENCOUNTER 2024-06-02 21:39 | Inpatient (IN) | payer OTHER ==
--- OUTSIDE RECORDS SUMMARY | 2024-06-02 21:49 | XMS REPORT | Continuity of Care Document ---
Author Name Unknown Address [address] [place] [address] [facility] [place] Address [address] [place] [address] Care Team Providers Care Airport Driver Name Role Phone PCP, PATIENT DOES NOT HAVE A Primary Care Physic cora Killian MD, Renetta Attending Clinician [phone] Jordan BARAJAS, Inna Balderas Attending Clinician UnavailPEDRO Pérez Attending Clinician Unavailable Brian Latham MD Attending Clinician [phone] Frank Singh MD Attending Clinician [phone] Jose SNEED, Renee Schmid Attending Clinician + Pedro Cheek MD Attending Clinician [phone] Griselda SNEED, Henry Peacock Attending Clinician [phone] Doctor Unassigned, [place] Attending Clinician U LEILA Peters Attending Clinician UnavailHENRY Augilar Admitting Clinician Ari Wood MD, Henry Peacock Admitting Clinician [phone] VALERIA BARKLEY Admitting Clinician Jonathan olguin Payers Payer Name Policy Type Policy Number Effective Date Expirati on Date Source [facility] [id number] 2021 00:00:00 Problems Condition Name Condition Details Condition Category Status Onset Date Resolution Date Last Treatment Date Treating Clinician Comments Source Shortness of breath Shortness of breath Disease Active 2021-03 00:00: 00 [facility] R THIGH HEMATOMA R THIGH HEMATOMA Active 12/16/2021 [facility] Diagnosis Active 2021-03 00:00: 00 2021-12-28 21:47:00 Scott De Leon Hypertensi ve disorder, systemic arterial (disorder) Hypertensi ve disorder, systemic arterial (disorder) Active Problem 12/27/2021 [facility] Problem Active 2021-12-27 08:10:37 Scott De Leon Hypothyroi dism (disorder) Hypothyroi dism (disorder) Active Problem 12/27/2021 [facility] Problem Active 2021-12-27 08:10:37 Scott De Leon 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) Active Problem 12/27/2021 [facility] Problem Active 2021-12-27 08:10:37 Scott De Leon Mixed anxiety and depressive disorder (disorder) Mixed anxiety and depressive disorder (disorder) Active Problem 12/27/2021 [facility] Problem Active 2021-12-27 08:10:37 Scott De Leon Peripheral nerve disease (disorder) Peripheral nerve disease (disorder) Active Problem 12/27/2021 [facility] Problem Active 2021-12-27 08:10:37 Scott De Leon Urinary incontinen ce (finding) Urinary incontinen ce (finding) Active Problem 12/27/2021 [facility] Problem Active 2021-12-27 08:10:37 Scott De Leon PAIN IN UNSPECIFIE D KNEE PAIN IN UNSPECIFIE D KNEE Active [facility] Diagnosis Active 2021-12-28 21:47:00 Scott De Leon Pericardia l effusion (disorder) Pericardia l effusion (disorder) Active Problem 12/27/2021 [facility] Problem Active 2021-12-27 08:10:37 Scott De Leon Simple obesity (disorder) Simple obesity (disorder) Active Problem 12/27/2021 [facility] Problem Active 2021-12-27 08:10:37 Scott De Leon Chronic hypoxemic respirator y failure (disorder) Chronic hypoxemic respirator y failure (disorder) Active Problem 12/27/2021 [facility] Problem Active 2021-12-27 08:10:37 Scott De Leon Chronic kidney disease stage 2 (disorder) Chronic kidney disease stage 2 (disorder) Active Problem 12/27/2021 [facility] Problem Active 2021-12-27 08:10:37 Scott De Leon Chronic obstructiv e lung disease (disorder) Chronic obstructiv e lung disease (disorder) Active Problem 12/27/2021 [facility] Problem Active 2021-12-27 08:10:37 Scott De Leon Gastroesop hageal reflux disease (disorder) Gastroesop hageal reflux disease (disorder) Active Problem 12/27/2021 [facility] Problem Active 2021-12-27 08:10:37 Scott De Leon Gout (disorder) Gout (disorder) Active Problem 12/27/2021 [facility] Problem Active 2021-12-27 08:10:37 Scott De Leon Allergies, Adverse Reactions, Alerts Allergy Name Allergy Type Status Severity Reaction(s) Onset Date Inactive Date Treating Clinician Comments Source NO KNOWN ALLERGIE S Drug Class Active [facility] Social History Social Habit Start Date Stop Date Quantity Comments Source Tobacco use and exposure 2022-01-12 00:00:00 2022-01-12 00:00:00 Smokeless tobacco non-user [facility] Alcohol intake 2022-01-12 00:00:00 2022-01-12 00:00:00 Ex-drinker (finding) [facility] Exposure to SARS-CoV-2 (event) 2022-01-01 00:00:00 2022-01-11 08:31:00 Not sure [facility] Sex Assigned At 1945 00:00:00 1945 00:00:00 [facility] Smoking Status Start Date Stop Date Source Tobacco smoking consumption unknown [facility] Social History Jenny gray Medications Ordered Medication Name Filled Medication Name Start Date Stop Date Current Medication? Ordering Clinician Indication Dosage Frequency Signature (SIG) Comments Components Source amLODIPine 10 mg tablet 2021-03 00:00: 00 Yes 10mg Take 1 tablet by mouth in the morning. [facility] cholecalcif jaya, vitamin D3, 25 mcg (1,000 unit) tablet 2021-03 00:00: 00 Yes 1000U Take 1 tablet by mouth in the morning. [facility] collagenase 250 unit/gram ointment 2021-03 00:00: 00 Yes Apply to affected area(s) daily. [facility] allopurinoL 300 mg tablet 2021-03 11:33: 01-25 00:00 :00 No 300mg Take 300 mg by mouth in the morning. [facility] aspirin 81 mg chewable tablet 2021-03 11:33: 01-25 00:00 :00 No 81mg Take 81 mg by mouth in the morning. [facility] busPIRone 10 mg tablet 2021-03 11:: 01-25 00:00 :00 No 10mg Take 10 mg by mouth in the morning and 10 mg at noon and 10 mg in the evening. [facility] calcium carbonate (CALCIUM 600) 600 mg calcium (1,500 mg) tablet 2021-03 11:: 01-25 00:00 :00 No 600mg Take 600 mg by mouth in the morning. [facility] dapaglifloz in 5 mg tablet 2021-03 11:: 01-25 00:00 :00 No 1{tbl} Take 1 tablet by mouth in the morning. [facility] doxazosin 8 mg tablet 2021-03 11:: 01-25 00:00 :00 No 8mg Take 8 mg by mouth at bedtime. [facility] escitalopra m oxalate 10 mg tablet 2021-03 11:: 01-25 00:00 :00 No 10mg Take 10 mg by mouth in the morning. [facility] ferrous sulfate 325 mg (65 mg iron) EC tablet 2021-03 11:33: 01-25 00:00 :00 No 325mg Take 325 mg by mouth in the morning. [facility] gabapentin 100 mg capsule 2021-03 11:33: 01-25 00:00 :00 No 100mg Take 100 mg by mouth in the morning. [facility] glimepiride 2 mg tablet 2021-03 11:33: 01-25 00:00 :00 No 2mg Take 2 mg by mouth daily with breakfast. [facility] hydrALAZINE 25 mg tablet 2021-03 11:: 01-25 00:00 :00 No 50mg Take 50 mg by mouth every 6 (six) hours. [facility] levothyroxi ne 50 mcg tablet 2021-03 11:: 01-25 00:00 :00 No 50ug Take 50 mcg by mouth every morning. [facility] magnesium oxide 400 mg magnesium capsule 2021-03 11:33: 01-25 00:00 :00 No Take by mouth. [facility] Loperamide HCl 2 mg Tab tablet 2021-03 11:33: 01-25 00:00 :00 No Take by mouth. [facility] montelukast 10 mg tablet 2021-03 11:: 01-25 00:00 :00 No 10mg Take 10 mg by mouth. [facility] nebivoloL 10 mg tablet 2021-03 11:: 01-25 00:00 :00 No 10mg Take 10 mg by mouth in the morning. [facility] nystatin 100,000 unit/gram powder 2021-03 11:33: 01-25 00:00 :00 No Apply to area(s) 2 (two) times daily. [facility] omeprazole 20 mg capsule 2021-03 11:: 01-25 00:00 :00 No 20mg Take 20 mg by mouth in the morning. [facility] pravastatin 80 mg tablet 2021-03 11:: 01-25 00:00 :00 No 80mg Take 80 mg by mouth at bedtime. [facility] traMADoL 50 mg tablet 2021-03 11:33: 01-25 00:00 :00 No 50mg Take 50 mg by mouth every 6 (six) hours as needed. [facility] fluticasone -umeclidin- vilanter (TRELEGY ELLIPTA) 100-62.5-25 mcg DsDv 2021-03 11:33: 01-25 00:00 :00 No Inhale daily. [facility] ascorbic acid, vitamin C, (VITAMIN C) 500 mg tablet 2021-03 11:33: 01-25 00:00 :00 No 500mg Take 500 mg by mouth. [facility] bumetanide 1 mg tablet 2021-03 11:33: 01-25 00:00 :00 No 1mg Take 1 mg by mouth in the morning. [facility] insulin glargine 100 unit/mL injection 2021-03 11:33: 01-25 00:00 :00 No 16U inject 16 Units under the skin in the morning and 16 Units in the evening. [facility] insulin lispro (human) in NaCl 0.9% (NS) IV infusion 2021-03 11:33: 01-25 00:00 :00 No inject under the skin. Sliding scale [facility] ondansetron (ZOFRAN) tablet 4 mg 2021-03 07:10: 58 Yes 4mg 4 mg, Oral, Q6HPRN, Starting on Mon01/25/22 at 0110, Until Discontinu ed, Routine, Nausea and Vomiting (N/V) [facility] allopurinoL 300 mg tablet 2021-03 00:00: 00 Yes 300mg Take 1 tablet by mouth in the morning. [facility] ascorbic acid, vitamin C, (VITAMIN C) 500 mg tablet 2021-03 00:00: 00 Yes 500mg Take 1 tablet by mouth. [facility] calcium carbonate (CALCIUM 600) 600 mg calcium (1,500 mg) tablet 2021-03 00:00: 00 Yes 600mg Take 1 tablet by mouth in the morning. [facility] dapaglifloz in 5 mg tablet 2021-03 00:00: 00 Yes 5mg Take 1 tablet by mouth in the morning. [facility] doxazosin 8 mg tablet 2021-03 00:00: 00 Yes 8mg Take 1 tablet by mouth at bedtime. [facility] escitalopra m oxalate 10 mg tablet 2021-03 00:00: 00 Yes 10mg Take 1 tablet by mouth in the morning. [facility] ferrous sulfate 325 mg (65 mg iron) EC tablet 2021-03 00:00: 00 Yes 325mg Take 1 tablet by mouth in the morning. [facility] fluticasone -umeclidin- vilanter (TRELEGY ELLIPTA) 100-62.5-25 mcg DsDv 2021-03 00:00: 00 Yes Inhale daily. [facility] glimepiride 2 mg tablet 2021-03 00:00: 00 Yes 2mg Take 1 tablet by mouth daily with breakfast. [facility] Loperamide HCl 2 mg Tab tablet 2021-03 00:00: 00 Yes Take by mouth every 12 (twelve) hours as needed for Other (diarrhea) . [facility] magnesium oxide 400 mg magnesium capsule 2021-03 00:00: 00 Yes Take by mouth. [facility] montelukast 10 mg tablet 2021-03 00:00: 00 Yes 10mg Take 1 tablet by mouth. [facility] nebivoloL 10 mg tablet 2021-03 00:00: 00 Yes 10mg Take 1 tablet by mouth in the morning. [facility] omeprazole 20 mg capsule 2021-03 00:00: 00 Yes 20mg Take 1 capsule by mouth in the morning. [facility] nystatin 100,000 unit/gram powder 2021-03 00:00: 00 Yes Apply to area(s) 2 (two) times daily. [facility] traMADoL 50 mg tablet 2021-03 00:00: 00 Yes 50mg Take 1 tablet by mouth every 8 (eight) hours as needed. [facility] aspirin 81 mg chewable tablet 2021-03 00:00: 00 Yes 81mg Take 1 tablet by mouth in the morning. [facility] busPIRone 10 mg tablet 2021-03 00:00: 00 Yes 10mg Take 1 tablet by mouth in the morning and 1 tablet at noon and 1 tablet in the evening. [facility] gabapentin 100 mg capsule 2021-03 00:00: 00 Yes 100mg Take 1 capsule by mouth in the morning. [facility] hydrALAZINE 25 mg tablet 2021-03 00:00: 00 Yes 50mg Take 2 tablets by mouth every 6 (six) hours. [facility] insulin glargine 100 unit/mL injection 2021-03 00:00: 00 Yes 16U inject 16 Units under the skin in the morning and 16 Units in the evening. [facility] levothyroxi ne 50 mcg tablet 2021-03 00:00: 00 Yes 50ug Take 1 tablet by mouth every morning. [facility] pravastatin 80 mg tablet 2021-03 00:00: 00 Yes 80mg Take 1 tablet by mouth at bedtime. [facility] LOVAZA, omega-3-aci d ethyl esters, 1 gram capsule 2021-03 00:00: 00 Yes 1g Take 1 capsule by mouth in the morning and 1 capsule at noon and 1 capsule in the evening. [facility] sennosides- docusate sodium 8.6-50 mg per tablet 2021-03 00:00: 00 Yes 1{tbl} Take 1 tablet by mouth in the morning and 1 tablet in the evening. [facility] furosemide 20 mg tablet 2021-03 00:00: 00 02-25 05:59 :00 No [id number] 40mg Take 2 tablets by mouth in the morning for 30 days. [facility] lidocaine (LIDODERM) 5 % (700 mg/patch) patch 1 Patch 2021-03 15:15: 00 Yes 1{patch } 1 Patch, Topical, Administer over 12 Hours, DAILY, First dose on Mon01/24/22 at 0915, Until Discontinu ed, Routine [facility] HYDROcodone -acetaminop hen (NORCO 5) 5-325 mg tablet 1 tablet 2021-03 15:05: 34 Yes 1{tbl} 1 tablet, Oral, Q6HPRN, Starting on Mon01/24/22 at 0905, Until Discontinu ed, Routine, Pain (scale 7-10) [facility] NaCl 0.9% (NS) IV infusion 500 mL 2021-03 16:30: 00 01-23 22:00 :00 No 500mL at 100 mL/hr, IV Infusion, ONCE, 1 dose, On 01/23/22 at 1030, Routine [facility] polyethylen e glycol 3350 powder 17 g 2021-03 15:15: 00 Yes 17g 17 g, Oral, DAILY, First dose on Mon01/23/22 at 0915, Until Discontinu ed, Routine [facility] sennosides- docusate sodium (SENOKOT-S) 8.6-50 mg per tablet 1 tablet 2021-03 14:00: 00 Yes 1{tbl} 1 tablet, Oral, BID, First dose (after last modificati on) on Mon01/23/22 at 0800, Until Discontinu ed, Routine [facility] lidocaine (LIDODERM) 5 % (700 mg/patch) patch 1 Patch 2021-03 04:45: 00 01-23 16:19 :00 No 1{patch } 1 Patch, Topical, Administer over 12 Hours, ONCE, 1 dose, On 01/22/22 at 2245, Routine [facility] collagenase (SANTYL) ointment 2021-03 17:30: 00 Yes Topical (Apply To Affected Areas), DAILY, First dose on 01/22/22 at 1130, Until Discontinu ed, Routine [facility] bumetanide (BUMEX) tablet 1 mg 2021-03 15:00: 00 01-23 14:58 :54 No 1mg 1 mg, Oral, QAM+PM, First dose (after last modificati on) on Mon01/22/22 at 0900, Until Discontinu ed, Routine [facility] NaCl 0.9% (NS) IV infusion 500 mL 2021-03 13:45: 00 01-22 18:44 :00 No 500mL at 100 mL/hr, IV Infusion, CONTINUOUS , Starting on 01/22/22 at 0745, Until 01/22/22 at 1244, Routine [facility] polyethylen e glycol 3350 powder 17 g 2021-03 13:04: 00 01-21 16:00 :00 No 17g 17 g, Oral, ONCE, 1 dose, On Mon01/21/22 at 0715, Routine [facility] lidocaine (LIDODERM) 5 % (700 mg/patch) patch 1 Patch 2021-03 07:45: 00 01-20 19:11 :00 No 1{patch } 1 Patch, Topical, Administer over 12 Hours, ONCE, 1 dose, On Mon01/20/22 at 0145, Routine [facility] HYDROcodone -acetaminop hen (NORCO 5) 5-325 mg tablet 1 tablet 2021-03 18:00: 00 Yes 1{tbl} 1 tablet, Oral, Q6H, First dose (after last modificati on) on Mon01/18/22 at 1200, Until Discontinu ed, Routine [facility] insulin lispro (human) (HumaLOG U-100) injection 13 Units 2021-03 18:00: 00 Yes 13U 13 Units, Subcutaneo us, TID MEALS, First dose (after last modificati on) on Mon01/18/22 at 1200, Until Discontinu ed, Routine [facility] insulin glargine (LANTUS U-100) injection 60 Units 2021-03 15:00: 00 Yes 60U 60 Units, Subcutaneo us, DAILY, First dose (after last modificati on) on Mon01/18/22 at 0900, Until Discontinu ed, Routine [facility] magnesium sulfate in water 2 gram/50 mL (4 %) infusion 2 g 2021-03 17:00: 00 01-17 23:31 :00 No 2g 2 g, IV Piggyback, Administer over 60 Minutes, ONCE, 1 dose, On Mon01/17/22 at 1100, Routine [facility] cholecalcif jaya (vitamin D3) tablet 1,000 Units 2021-03 16:15: 00 Yes 1000U 1,000 Units, Oral, DAILY, First dose on Mon01/17/22 at 1015, Until Discontinu ed, Routine [facility] liothyronin e (CYTOMEL) tablet 5 mcg 2021-03 15:00: 00 Yes 5ug 5 mcg, Oral, DAILY, First dose on Mon01/17/22 at 0900, Until Discontinu ed, Routine [facility] HYDROcodone -acetaminop hen (NORCO 5) 5-325 mg tablet 1 tablet 2021-03 14:42: 41 01-18 15:46 :06 No 1{tbl} 1 tablet, Oral, Q6HPRN, Starting on Mon01/16/22 at 0842, Until Mon01/18/22 at 0946, Routine, Pain (scale 4-6) [facility] Sliding Scale Insulin - Lispro (HumaLOG) + Fsbg Testing 2021-03 14:00: 00 Yes Subcutaneo us, TID MEALS+HS, First dose (after last modificati on) on Mon01/16/22 at 0800, Until Discontinu ed, Routine [facility] bumetanide (BUMEX) tablet 2 mg 2021-03 23:00: 00 01-22 13:01 :16 No 2mg 2 mg, Oral, QAM+PM, First dose on 01/15/22 at 1700, Until Discontinu ed, Routine [facility] LOVAZA (omega-3-ac id ethyl esters) capsule 1 g 2021-03 20:00: 00 Yes 1g 1 g, Oral, TID, First dose on Mon01/15/22 at 1400, Until Discontinu ed, Routine [facility] insulin glargine (LANTUS U-100) injection 50 Units 2021-03 15:00: 00 01-18 14:16 :01 No 50U 50 Units, Subcutaneo us, DAILY, First dose (after last modificati on) on 01/15/22 at 0900, Until Discontinu ed, Routine [facility] insulin glargine (LANTUS U-100) injection 20 Units 2021-03 22:30: 00 01-14 21:57 :00 No 20U 20 Units, Subcutaneo us, ONCE NOW, 1 dose, On Mon01/14/22 at 1630, Routine [facility] insulin glargine (LANTUS U-100) injection 30 Units 2021-03 15:00: 00 01-14 21:37 :35 No 30U 30 Units, Subcutaneo us, DAILY, First dose (after last modificati on) on Mon01/14/22 at 0900, Until Discontinu ed, Routine [facility] Sliding Scale Insulin - Lispro (HumaLOG) + Fsbg Testing 2021-03 14:00: 00 01-16 13:24 :34 No Subcutaneo us, Q4H, First dose (after last modificati on) on Mon01/14/22 at 0800, Until Discontinu ed, Routine [facility] Sliding Scale Insulin - Lispro (HumaLOG) + Fsbg Testing 2021-03 06:00: 00 01-14 13:48 :23 No Subcutaneo us, Q4H, First dose (after last modificati on) on Mon01/14/22 at 0000, Until Discontinu ed, Routine [facility] gabapentin (NEURONTIN) capsule 100 mg 2021-03 21:15: 00 Yes 100mg 100 mg, Oral, DAILY, First dose (after last modificati on) on Mon01/13/22 at 1515, Until Discontinu ed, Routine [facility] hydrALAZINE (APRESOLINE ) tablet 25 mg 2021-03 18:00: 00 Yes 25mg 25 mg, Oral, Q6H, First dose (after last modificati on) on Mon01/13/22 at 1200, Until Discontinu ed, Routine [facility] morpHINE (2 mg/mL) injection 2 mg 2021-03 16:15: 00 01-13 16:22 :00 No 2mg 2 mg, Slow IV Push, ONCE, 1 dose, On Mon01/13/22 at 1015, Routine [facility] busPIRone (BUSPAR) tablet 10 mg 2021-03 16:00: 00 Yes 10mg 10 mg, Oral, TID, First dose on Mon01/13/22 at 1000, Until Discontinu ed, Routine [facility] insulin glargine (LANTUS U-100) injection 8 Units 2021-03 16:00: 00 01-14 13:46 :23 No 8U 8 Units, Subcutaneo us, DAILY, First dose on Mon01/13/22 at 1000, Until Discontinu ed, Routine [facility] amLODIPine (NORVASC) tablet 10 mg 2021-03 15:00: 00 Yes 10mg 10 mg, Oral, DAILY, First dose (after last modificati on) on Mon01/13/22 at 0900, Until Discontinu ed, Routine [facility] pravastatin (PRAVACHOL) tablet 40 mg 2021-03 03:00: 00 Yes 40mg 40 mg, Oral, QHS, First dose on Mon01/12/22 at 2100, Until Discontinu ed, Routine [facility] morpHINE (2 mg/mL) injection 2 mg 2021-03 00:45: 00 01-13 00:14 :00 No 2mg 2 mg, Slow IV Push, ONCE, 1 dose, On Mon01/12/22 at 1845, Routine [facility] hydrALAZINE (APRESOLINE ) tablet 50 mg 2021-03 00:00: 00 01-13 13:26 :35 No 50mg 50 mg, Oral, Q6H, First dose (after last modificati on) on Mon01/12/22 at 1800, Until Discontinu ed, Routine [facility] bumetanide (BUMEX) injection 1 mg 2021-03 23:00: 00 01-15 17:03 :14 No 1mg 1 mg, Slow IV Push, QAM+PM, First dose (after last modificati on) on Mon01/12/22 at 1700, Until Discontinu ed, Routine [facility] lidocaine 2% (XYLOCAINE) 20 mg/mL (2 %) injection 15 mL 2021-03 21:00: 00 01-12 20:00 :00 No 15mL 15 mL, Infiltrati on, ONCE, 1 dose, On Mon01/12/22 at 1500, Routine [facility] hydrALAZINE (APRESOLINE ) tablet 25 mg 2021-03 18:15: 00 01-12 21:26 :32 No 25mg 25 mg, Oral, Q6H, First dose on Mon01/12/22 at 1215, Until Discontinu ed, Routine [facility] amLODIPine (NORVASC) tablet 5 mg 2021-03 18:15: 00 01-12 21:26 :32 No 5mg 5 mg, Oral, DAILY, First dose on Mon01/12/22 at 1215, Until Discontinu ed, Routine [facility] pantoprazol e (PROTONIX) EC tablet 40 mg 2021-03 15:00: 00 Yes 40mg 40 mg, Oral, DAILY, First dose on Mon01/12/22 at 0900, Until Discontinu ed, Routine [facility] aspirin chewable tablet 81 mg 2021-03 15:00: 00 Yes 81mg 81 mg, Oral, DAILY, First dose on Mon01/12/22 at 0900, Until Discontinu ed, Routine [facility] sennosides- docusate sodium (SENOKOT-S) 8.6-50 mg per tablet 1 tablet 2021-03 15:00: 00 01-23 13:04 :19 No 1{tbl} 1 tablet, Oral, DAILY, First dose on Mon01/12/22 at 0900, Until Discontinu ed, Routine [facility] sulfur hexafluorid e microsphr (LUMASON) injection 5 mL 2021-03 14:30: 00 01-12 14:30 :00 No [id number] 5mL 5 mL, Intravenou s, ONCE, 1 dose, On Mon01/12/22 at 0830, Routine
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 Restricted medication : DAWIT TAYLOR [facility] heparin (porcine) injection 5,000 Units 2021-03 14:00: 00 Yes 5000U 5,000 Units, Subcutaneo us, Q12H, First dose on Mon01/12/22 at 0800, Until Discontinu ed, Routine [facility] ipratropium -albuteroL (DUONEB) 0.5 mg-3 mg(2.5 mg base)/3 mL nebulizer solution 3 mL 2021-03 14:00: 00 Yes 3mL 3 mL, Inhalation , QID, First dose on Mon01/12/22 at 0800, Until Discontinu ed, Routine [facility] Sliding Scale Insulin - Lispro (HumaLOG) + Fsbg Testing 2021-03 14:00: 00 01-14 03:32 :49 No Subcutaneo us, TID MEALS+HS, First dose on Mon01/12/22 at 0800, Until Discontinu ed, Routine [facility] levothyroxi ne (SYNTHROID) tablet 50 mcg 2021-03 12:00: 00 Yes 50ug 50 mcg, Oral, QAM-0600, First dose on Mon01/12/22 at 0600, Until Discontinu ed, Routine [facility] [facility] bumetanide (BUMEX) injection 1 mg 2021-03 07:45: 00 01-12 11:24 :06 No 1mg 1 mg, Slow IV Push, QAM+PM, First dose on Mon01/12/22 at 0145, Until Discontinu ed, Routine [facility] dextrose 10% (D10W) bolus infusion 250 mL 2021-03 06:33: 24 Yes 250mL 250 mL, IV Infusion, PRN - SEE INSTRUCTIO NS, Administer over 60 Minutes, Other, If blood glucose is < or = 70 mg/dL and patient is unable to swallow or has mental status changes, Starting on Mon01/12/22 at 0033
If blood glucose is < or = 70 mg/dL and patient is unable to swallow or has mental status changes (Give glucagon order if patient needs fluid restrictio n): IF IV access available: Dextrose 10%. 1. 125 mL (? bag) of D10W IV infusion - equivalent to 12.5 g dextrose 2. Blood glucose - draw blood glucose 15 minutes after D10W Administra tion. 3. If blood glucose is < 80 mg/dL, repeat.
[facility] glucagon (GLUCAGEN DIAGNOSTIC KIT) injection 1 mg 2021-03 06:33: 19 Yes 1mg 1 mg, Intramuscu lar, PRN, Starting on Mon01/12/22 at 0033, Until Discontinu ed, OSKAR, Blood Glucose < or = 70 mg/dL and patient is unable to swallow or has mental changes. [facility] HYDROcodone -acetaminop hen (NORCO 5) 5-325 mg tablet 1 tablet 2021-03 06:32: 32 01-14 06:31 :32 No 1{tbl} 1 tablet, Oral, Q6HPRN, Starting on Mon01/12/22 at 0032, Until Mon01/14/22 at 0031, Routine, Pain (scale 4-6) [facility] acetaminoph en (TYLENOL) tablet 650 mg 2021-03 06:32: 22 Yes 650mg 650 mg, Oral, Q6HPRN, Starting on Mon01/12/22 at 0032, Until Discontinu ed, Routine, Pain (scale 1-3) [facility] NaCl 0.9% (NS) injection 10 mL 2021-03 06:28: 23 Yes 10mL 10 mL, Slow IV Push, PRN, Starting on Mon01/12/22 at 0028, Until Discontinu ed, Routine, line maintenanc e [facility] lidocaine 1% (PF) (XYLOCAINE) injection 5 mL 2021-03 06:28: 23 Yes 5mL 5 mL, Subcutaneo us, PRN, Starting on Mon01/12/22 at 0028, Until Discontinu ed, Routine, Local anesthesia [facility] No known medications 2021-03 00:24: 41 No No known medication s [facility] vancomycin (VANCOCIN) 1,000 mg in NaCl 0.9% (NS) 250 mL VIAL-MATE IV piggyback 2021-03 19:00: 00 01-11 19:21 :00 No 1000mg 1,000 mg, IV Piggyback, ONCE, 1 dose, On Mon01/11/22 at 1300, Administer over 60 Minutes, 250 mL
Reas on for Anti-Infec tive: Documented Infection< br>Documen tapan Infection Site: Skin / Soft Tissue
Duration of Therapy: Other (see Comments) [facility] piperacilli n-tazobacta m (ZOSYN) 3.375 g in NaCl 0.9% (NS) 50 mL MINI-BAG 2021-03 18:00: 00 01-11 18:47 :00 No 3.375g 3.375 g, IV Piggyback, ONCE, 1 dose, On Mon01/11/22 at 1200, Administer over 30 Minutes, 50 mL
Reas on for Anti-Infec tive: Documented Infection< br>Documen tapan Infection Site: Skin / Soft Tissue
Duration of Therapy: Other (see Comments) [facility] levothyroxi ne 50 mcg (0.05 mg) oral tablet 2021-03 19:56: 00 Yes 50 microgram = 1 tab, PO, Q630AM, 0 Refill(s) [facility] acetaminoph en 500 mg oral tablet. 2021-03 19:47: 00 Yes 500 mg = 1 tab, PO, Q8H-06, 0 Refill(s) [facility] insulin glargine 100 units/mL subcutaneou s solution 2021-03 19:46: 00 Yes 12 unit, SUB-Q, Bedtime, 0 Refill(s) [facility] bumetanide 1 mg oral tablet 2021-03 19:46: 00 Yes 1 mg = 1 tab, PO, Daily, 0 Refill(s) [facility] magnesium sulfate 2021-03 17:56: 00 No Notes: WASTE: F/P - Sink; E - Municipal Trash Bin [facility] potassium chloride 10 mEq oral tablet, extended release (KCL) 2021-03 14:00: 00 No /= 14 Nauruan, may dissolve each 20 mEq tablet in 4 oz of water. Allow about 2 minutes for the tablets to disintegra te. Stir before giving to prepare slurry and administer . Please exclude patient's with feeding tube less than 14 Nauruan (Dobhoff, J-tube, etc) and pediatric and patients. 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 [facility] insulin glargine 2021-03 14:00: 00 No 10 unit, 0.1 mL, Route: SUB-Q, Drug form: SOLN, Daily, Start date: 12/20/21 9:00:00 CDT, Duration: 30 day, Stop date: 01/18/22 9:00:00 AWAKE OVERNIGHT COUNSELOR, Infuse over: 0 hr, 0 [facility] Leon hydrALAZINE 25 mg oral tablet 2021-03 14:00: 00 No Notes: (Same as: Apresoline ) May interfere w/enteral feedings Take With Food. [facility] De [facility] hydrALAZINE 2021-03 05:02: 00 No Notes: (Same as: Apresoline ) Push over 5 minutes [facility] De Leon insulin glargine 2021-03 02:00: 00 No Notes: (Same as: Lantus) Do not hold insulin without contacting prescriber WASTE: F/P - Black; E - Municipal Trash Bin "single patient use only" Stable for 28 days at room temperatur e Expires in days from ____Date Scott Franciscoann nebivolol 2021-03 22:15: 00 No Notes: (same as: Bystolic) Scott Franciscoann hydrALAZINE 25 mg oral tablet 2021-03 22:00: 00 No Notes: (Same as: Apresoline ) May interfere w/enteral feedings Take With Food. [facility] Insulin regular 2021-03 02:21: 00 No Notes: (Same as: Humulin R) Roll in palms of hands gently; Do not shake vigorously . WASTE: F/P - Black; E - Municipal Trash Bin Stable for 31 days at room temperatur e Expires in days from ____Date Blakeredd escamilla Moises remove patch 2021-03 02:00: 00 No Notes: Remove patch 12 hours after applicatio n each day. Scott escamilla Moises allopurinol 2021-03 22:00: 00 No 300 mg, 1 tab, Route: PO, Drug form: TAB, QPM, kg, Start date: 12/17/21 17:00:00 CDT, Duration: 30 day, Stop date: 01/15/22 17:00:00 AWAKE OVERNIGHT COUNSELOR Blakeredd escamilla Moises ZyrTEC 2021-03 14:00: 00 No Notes: (Same As: Zyrtec) Scott escamilla [place] doxazosin 2021-03 14:00: 00 No 8 mg, 1 tab, Route: PO, Drug form: TAB, Daily, kg, Start date: 12/17/21 9:00:00 CDT, Duration: 30 day, Stop date: 01/15/22 9:00:00 AWAKE OVERNIGHT COUNSELOR Blakeredd andi De Leon polyethylen e glycol 3350 2021-03 14:00: 00 No Notes: Dissolve in 8 oz of water or juice. (Same as: Miralax) Blakeredd andi De Leon Vitamin D3 1000 intl units oral tablet 2021-03 14:00: 00 No 25 microgram, 1 tab, Route: PO, Drug form: TAB, Daily, kg, Start date: 12/17/21 9:00:00 CDT, Duration: 30 day, Stop date: 01/15/22 9:00:00 AWAKE OVERNIGHT COUNSELOR Blakeredd escamilla Moises Lexapro 2021-03 14:00: 00 No Notes: (Same as: Lexapro) Blakeredd andi De Leon Trelegy Ellipta 100 mcg-62.5 mcg-25 mcg/inh inhalation powder 2021-03 14:00: 00 No Trelegy Ellipta 100 mcg-62.5 mcg-25 mcg/inh inhalation powder, 1 puff, Route: INHALATION , RDaily, 12/17/21 9:00:00 CDT, Duration: 30 day, Stop date: 01/16/22 8:00:00 AWAKE OVERNIGHT COUNSELOR, 0 Blakeredd andi De Leon Lantus 100 units/mL 2021-03 14:00: 00 No 20 unit, Route: SUB-Q, Daily, kg, Start date: 12/17/21 9:00:00 CDT, Duration: 30 day, Stop date: 01/15/22 9:00:00 AWAKE OVERNIGHT COUNSELOR Scott De Leon losartan 2021-03 14:00: 00 No 50 mg, 1 tab, Route: PO, Drug form: TAB, Daily, kg, Start date: 12/17/21 9:00:00 CDT, Duration: 30 day, Stop date: 01/15/22 9:00:00 AWAKE OVERNIGHT COUNSELOR Scott De Leon Bystolic 2021-03 14:00: 00 No Notes: (same as: Bystolic) Scott De Leon levothyroxi ne 2021-03 11:30: 00 No Notes: Take 1 hour before or 2 hours after meal; Enteral feeds may interefere with the absorption of this medication .(Same as:Levothr oid, Synthroid) Scott De Leon insulin regular 100 units/mL human recombinant 2021-03 05:08: 00 No 8 unit, Route: IV, ONCE, kg, Priority: STAT, Start date: 12/17/21 0:08:00 CDT, Stop date: 12/17/21 0:08:00 CDT [facility] Leon Dextrose 50% Syringe (D50W) 2021-03 05:08: 00 No 25 gm, 50 mL, Route: IVP, Drug Form: INJ, kg, ONCE, STAT, Start date: 12/17/21 0:08:00 CDT, Stop date: 12/17/21 0:08:00 CDT, Dextrose 50%: 25 gm = 50 mL, 0 Scott De Leon sodium zirconium cyclosilica te 10 g oral powder for reconstitut ion 2021-03 04:55: 00 No Notes: (Same as: Lekelstarr) Mix with 45 mL water prior to administra tion Scott De Leon tramadol 50 mg oral tablet 2021-03 04:51: 00 No Notes: Not to exceed 200mg/day. (Same As: Ultram) Scott De Leon busPIRone 2021-03 03:00: 00 No Notes: (Same As: BuSpar) Scott De Leon heparin 5000 units/mL injectable solution 2021-03 03:00: 00 No Notes: porcine heparin Scott De Leon Isolyte S PH 7.4 1,000 mL 2021-03 02:25: 00 No Notes: (Same as: Isolyte S PH7.4, Normosol-R PH 7.4, Plasma-Lyt e A ) Scott De Leon Isolyte S PH-7.4 (Bolus) IV 2021-03 02:24: 00 No Notes: (Same as: Isolyte S PH7.4, Normosol-R PH 7.4, Plasma-Lyt e A ) Scott De Leon Levemir 2021-03 02:00: 00 No 10 unit, Route: SUB-Q, Drug form: SOLN, Q12H, kg, Start date: 12/16/21 21:00:00 CDT, Duration: 30 day, Stop date: 01/15/22 9:00:00 AWAKE OVERNIGHT COUNSELOR Scott De Leon pravastatin 2021-03 02:00: 00 No Notes: (Same as: Pravachol) Scott De Leon senna 2021-03 02:00: 00 No Notes: (Same as: Senokot) Scott De Leon lidocaine 4% topical film 2021-03 02:00: 00 No Notes: Patch is applied to intact skin to cover painful area for up to 12 hours in a 24-hour period (12 hours on and 12 hours off). Please indicate the location of applicatio n site. Site 1: Remove old patch before applicatio n of new patch. (Same as Aspercreme Lidocaine Patch) Scott De Leon hydrALAZINE 25 mg oral tablet 2021-03 02:00: 00 No 25 mg, 1 tab, Route: PO, Drug form: TAB, Q12H, kg, Start date: 12/16/21 21:00:00 CDT, Duration: 30 day, Stop date: 01/15/22 9:00:00 AWAKE OVERNIGHT COUNSELOR Scott De Leon insulin glargine 2021-03 02:00: 00 No Notes: (Same as: Jeff) Do not hold insulin without contacting prescriber WASTE: F/P - Black; E - Municipal Trash Bin "single patient use only" Stable for 28 days at room temperatur e Expires in days from ____Date Blakeredd escamilla [place] montelukast 2021-03 02:00: 00 No Notes: (Same as:Singula ir) Scott De Leon oxyCODONE 5 mg/5 mL oral solution 2021-03 01:07: 00 No Notes: (Same as:'Roxico done) To be drawn up in 3 mL syr Scott De Leon oxyCODONE immediate release 2021-03 01:07: 00 No Notes: (Same as: 'Roxicodon e) Scott De Leon naloxone 2021-03 01:07: 00 No Notes: Same as Narcan Scott De Leon pantoprazol e 2021-03 01:07: 00 No Notes: Tablet should not be chewed or crushed. (Same as: Protonix) Scott De Leon acetaminoph en 2021-03 01:06: 00 No Notes: Max acetaminop hen 4000 mg/day (4 gm/day). (Same as: Tylenol Extra Strength) Scott De Leon Dextrose 50% Syringe (D50W) 2021-03 01:01: 00 No 12.5 gm, 25 mL, Route: IVP, Drug Form: INJ, kg, PRN, PRN Blood Glucose Results, Start date: 12/16/21 20:01:00 CDT, Duration: 30 day, Stop date: 01/15/22 19:00:00 AWAKE OVERNIGHT COUNSELOR, 0 Scott De Leon glucagon 2021-03 01:01: 00 No 1 mg, Route: IM, Drug form: PDR/INJ, PRN, kg, PRN Blood Glucose Results, Start date: 12/16/21 20:01:00 CDT, Duration: 30 day, Stop date: 01/15/22 19:00:00 AWAKE OVERNIGHT COUNSELOR, 0 Scott De Leon insulin lispro 2021-03 01:01: 00 No Notes: (Same as: Humalog) Roll in palms of hands gently; Do not shake vigorously . WASTE: F/P - Black; E - Municipal Trash Bin Stable for 28 days at room temperatur e. Expires in days from ____Date Scott De Leon Lasix 2021-03 00:57: 00 No Notes: (Same as: Lasix) MEDICATION WASTE Product Size: 40 mg Product Wasted: ___ mg Scott De Leon bisacodyl 2021-03 00:53: 00 No Notes: (Same As: Dulcolax, Bisco-Lax) Scott De Leon ondansetron 2021-03 00:53: 00 No Notes: (Same as: Zofran) MEDICATION WASTE Product Size: 4 mg Product Wasted: ___ mg Scott De Leon melatonin 2021-03 00:53: 00 No Notes: (Same as: Melatonin) Scott De Leon doxazosin 8 mg oral tablet 2021-03 23:51: 00 Yes 8 mg = 1 tab, PO, Daily, 0 Refill(s) Scott De Leon allopurinol 300 mg oral tablet 2021-03 23:50: 00 Yes 300 mg = 1 tab, PO, QPM, 0 Refill(s) Scott De Leon loperamide 2 mg oral tablet 2021-03 23:50: 00 Yes 2 mg = 1 tab, PO, PRN, 0 Refill(s) Scott De Leon pravastatin 80 mg oral tablet 2021-03 23:49: 00 Yes 80 mg = 1 tab, PO, QPM, 0 Refill(s) Scott De Leon tumeric 500 mg 2021-03 23:48: 00 No tumeric 500 mg, 1 tab, PO, Daily, Refill(s) 0 Scott De Leon Vitamin C 2021-03 23:48: 00 Yes = 1 tab, PO, Daily, 0 Refill(s) Memredd De Leon Levemir 100 units/mL 2021-03 23:48: 00 No 20 unit, SUB-Q, BID, 0 Refill(s) cSott De Leon omega-3 polyunsatur ated fatty acids 1000 mg oral capsule 2021-03 23:47: 00 Yes 1,000 mg = 1 cap, PO, Daily, 0 Refill(s) Memredd De Leon Vitamin D3 1000 intl units oral tablet 2021-03 23:46: 00 Yes 25 microgram = 1 tab, PO, Daily, 0 Refill(s) Memredd De Leon calcium 600 mg 2021-03 23:46: 00 Yes calcium 600 mg, 1 tab, PO, Daily, Refill(s) 0 Memoria andi De Leon magnesium 400 mg 2021-03 23:45: 00 Yes magnesium 400 mg, 1 tab, PO, Daily, Refill(s) 0 Scott De Leon gabapentin 300 mg oral capsule 2021-03 23:44: 00 No 300 mg = 1 cap, PO, BID, 0 Refill(s) Memredd De Leon omeprazole 20 mg oral enteric coated tablet 2021-03 23:44: 00 Yes 20 mg = 1 tab, PO, BID, 0 Refill(s) [facility] [place] montelukast 10 mg oral tablet 2021-03 23:44: 00 Yes 10 mg = 1 tab, PO, Daily, 0 Refill(s) Memredd Franciscoann aspirin 81 mg tablet, enteric coated 2021-03 23:43: 00 Yes 81 mg = 1 tab, PO, Daily, 0 Refill(s) Memredd Franciscoann Lexapro 10 mg oral tablet 2021-03 23:43: 00 Yes 10 mg = 1 tab, PO, Daily, 0 Refill(s) Memredd Franciscoann busPIRone 10 mg oral tablet 2021-03 23:43: 00 Yes 10 mg = 1 tab, PO, TID, 0 Refill(s) Memoria andi FranciscoMoises ZyrTEC 10 mg oral tablet 2021-03 23:43: 00 Yes 10 mg = 1 tab, PO, Daily, 0 Refill(s) Memredd Franciscoann hydrALAZINE 25 mg oral tablet 2021-03 23:43: 00 No 25 mg = 1 tab, PO, BID, 0 Refill(s) Memredd Franciscoann gabapentin 100 mg oral capsule 2021-03 23:42: 00 Yes 100 mg = 1 cap, PO, QAM, 0 Refill(s) Memredd Franciscoann losartan 50 mg oral tablet 2021-03 23:42: 00 No 50 mg = 1 tab, PO, BID, 0 Refill(s) Scott escamilla [place] Bystolic 10 mg oral tablet 2021-03 23:41: 00 Yes 10 mg = 1 tab, PO, QAM, 0 Refill(s) Scott andi Moises Farxiga 5 mg oral tablet 2021-03 23:41: 00 Yes 5 mg = 1 tab, PO, Daily, 0 Refill(s) Blakeredd andi De Leon glimepiride 2 mg oral tablet 2021-03 23:41: 00 Yes 2 mg = 1 tab, PO, BID, 0 Refill(s) Blakeredd andi De Leon Trelegy Ellipta 100 mcg-62.5 mcg-25 mcg/inh inhalation powder 2021-03 23:40: 00 Yes = 1 puff, INHALATION , QAM, 0 Refill(s) Scott andi Moises levothyroxi ne 75 mcg (0.075 mg) oral tablet 2021-03 23:40: 00 No 75 microgram = 1 tab, PO, Daily, 0 Refill(s) Scott De Leon Soliqua 100/33 2021-03 23:37: 00 No 48 unit, SUB-Q, Daily, 0 Refill(s) Blakeredd andi De Leon acetaminoph en-hydrocod one 325 mg-5 mg oral tablet 2021-03 23:19: 00 No Notes: (Same as: [place] 325/5) Do not exceed 4gm/day of acetaminop hen. Scott De Leon cefTRIAXone + sterile water 10 mL 2021-03 14:24: 00 No Notes: (Same As: Rocephin). Use with 100 mL NS and infuse over 30 min MEDICATION WASTE Product Size: 1000 mg Product Wasted: ___ mg Scott De Leon Vital Signs Vital Name Observation Time Observation Value Comments S ource Heart rate 2022-01-25 21:23:00 64 /min [facility] Oxygen saturation in Arterial blood by Pulse oximetry 2022-01-25 21:23:00 98 /min [facility] Systolic blood pressure 2022-01-25 21:16:00 132 mm[Hg] [facility] Diastolic blood pressure 2022-01-25 21:16:00 63 mm[Hg] [place] [facility] Body temperature 2022-01-25 21:16:00 36.06 Lupe [facility] Respiratory rate 2022-01-25 21:16:00 24 /min [facility] Body height 2022-01-12 04:15:00 151.1 cm [facility] Body weight 2022-01-12 04:15:00 87 kg bed scale [facility] BMI 2022-01-12 04:15:00 38.09 kg/m2 [facility] Heart Rate 2021-12-22 20:31:54 [facility] Systolic (mm Hg) 2021-12-22 20:31:50 [facility] Diastolic (mm Hg) 2021-12-22 20:31:50 [facility] Heart Rate 2021-12-22 20:31:50 [facility] [place] Temperature Oral (F) 2021-12-22 20:31:33 97.7 F [facility] Heart Rate 2021-12-22 16:44:52 [facility] [place] Systolic (mm Hg) 2021-12-22 16:44:47 [facility] Diastolic (mm Hg) 2021-12-22 16:44:47 [facility] Temperature Oral (F) 2021-12-22 16:43:33 97.9 F [facility] Systolic (mm Hg) 2021-12-22 12:31:53 [facility] Diastolic (mm Hg) 2021-12-22 12:31:53 [facility] Temperature Oral (F) 2021-12-22 12:30:34 98.1 F [facility] Respitory Rate 2021-12-22 09:50:45 [facility] Respitory Rate 2021-12-22 04:25:53 [facility] Respitory Rate 2021-12-22 00:48:38 [facility] Temperature Oral (F) 2021-12-21 20:56:00 98.0 F [facility] Temperature Oral (F) 2021-12-20 08:52:55 98.6 F [facility] Respitory Rate 2021-12-20 06:00:00 [facility] Systolic (mm Hg) 2021-12-20 06:00:00 [facility] Diastolic (mm Hg) 2021-12-20 06:00:00 [facility] Respitory Rate 2021-12-20 05:00:00 [facility] Systolic (mm Hg) 2021-12-20 05:00:00 [facility] Diastolic (mm Hg) 2021-12-20 05:00:00 [facility] Temperature Oral (F) 2021-12-20 04:44:23 98 F [facility] Respitory Rate 2021-12-20 04:00:00 [facility] Systolic (mm Hg) 2021-12-20 04:00:00 [facility] Diastolic (mm Hg) 2021-12-20 04:00:00 [facility] Temperature Oral (F) 2021-12-20 01:02:00 97.8 F [facility] Height 2021-12-17 09:02:00 152.4 cm [facility] Weight 2021-12-17 09:02:00 [facility] BMI Calculated 2021-12-17 09:02:00 [facility] Heart Rate 2021-12-16 08:40:00 [facility] Procedures Procedure Date / Time Performed Performing Clinician Source POCT GLUCOSE (AUTOMATED) 2022-01-25 23:49:00 Jackie Singh [facility] POCT GLUCOSE (AUTOMATED) 2022-01-25 18:00:00 Jackie Singh [facility] POCT GLUCOSE (AUTOMATED) 2022-01-25 14:04:00 Jackie Singh [facility] POCT GLUCOSE (AUTOMATED) 2022-01-25 01:47:00 Jackie Singh [facility] POCT GLUCOSE (AUTOMATED) 2022-01-24 22:47:00 Jackie Singh [facility] POCT GLUCOSE (AUTOMATED) 2022-01-24 17:54:00 Jackie Singh [facility] POCT GLUCOSE (AUTOMATED) 2022-01-24 14:06:00 Jackie Singh [facility] POCT GLUCOSE (AUTOMATED) 2022-01-24 02:26:00 Jackie Singh [facility] POCT GLUCOSE (AUTOMATED) 2022-01-23 23:24:00 Jackie Singh [facility] POCT GLUCOSE (AUTOMATED) 2022-01-23 18:10:00 Jackie Singh [facility] POCT GLUCOSE (AUTOMATED) 2022-01-23 15:14:00 Jackie Singh [facility] BASIC METABOLIC PANEL (NA, K, CL, CO2, GLUCOSE, BUN, CREATININE, CA) 2022-01-23 13:26:00 Dali Garduno [facility] CBC WITHOUT DIFF 2022-01-23 13:26:00 Ana María Garduno ra [facility] N-TERMINAL PRO-BNP 2022-01-23 13:26:00 Dany Garduno [facility] POCT GLUCOSE (AUTOMATED) 2022-01-23 03:06:00 Jackie Singh [facility] BLOOD CULTURE SCREEN 2022-01-23 01:44:00 Sherrie Garduno [facility] POCT GLUCOSE (AUTOMATED) 2022-01-22 23:43:00 Jackie Singh [facility] CREATININE, URINE RANDOM 2022-01-22 18:59:00 Abril hidalgo Dali [facility] UREA NITROGEN, URINE RANDOM 2022-01-22 18:59:00 Shaan Dali [facility] BLOOD CULTURE SCREEN 2022-01-22 18:56[facility]00 [facility] 2022-01-22 18:11:00 Jackie Singh [facility]IN[facility]22-01-22 [facility]-22 17:35:00 Dali Garduno [facility] POCT GLUCOSE (AUTOMATED) 2022-01-22 16:20:00 Jackie Singh [facility] MAGNESIUM 2022-01-22 10:37:00 [facility]OLIC [facility] (NA, K, CL, CO2, GLUCOSE, BUN, CREATININE, CA) 2022-01-22 10:37:00 Joey Hobson [facility] CBC WITH DIFF 2022-01-22 10:37:00 Joey Hobson [facility] POCT GLUCOSE (AUTOMATED) 2022-01-22 03:07:00 Jackie Singh [facility] POCT GLUCOSE (AUTOMATED) 2022-01-21 22:47:00 Jackie Singh [facility] POCT GLUCOSE (AUTOMATED) 2022-01-21 18:04:00 Jackie Singh [facility] POCT GLUCOSE (AUTOMATED) 2022-01-21 16:14:00 Jackie Singh [facility] XR CHEST 1 VW 2022-01-21 14:06:00 Dali Garduno [facility] POCT GLUCOSE (AUTOMATED) 2022-01-21 01:59:00 Jackie Singh [facility] POCT GLUCOSE (AUTOMATED) 2022-01-20 22:47:00 Jackie Singh [facility] GLUCOSE 2022-01-20 20:33:00 Rodriguez, Luz [facility] PROTEIN TOTAL 2022-01-20 20:33:00 Rodriguez, [facility] LACTATE DEHYDROGENASE 2022-01-20 20:33:00 Rodriguez, Janiya burgos [facility] XR CHEST 1 VW 2022-01-20 20:14:00 [facility] 2022-01-20 19:47:00 Rodriguez, Luz [facility] AMYLASE BODY FLUID 2022-01-20 19:30:00 [facility] 2022-01-20 19:30:00 Rodriguez, Luz [facility] T.PROTEIN BODY FLUID 2022-01-20 19:30:00 Rodriguez, Janiya andi [facility] LDH TOTAL BODY FLUID 2022-01-20 19:30:00 Rodriguez, Zhen escamilla [facility] BODY FLUID DIRECT COUNT 2022-01-20 19:30:00 Rodriguez, Serina omar [facility] BODY FLUID (BACTEC BOTTLE) 2022-01-20 19:30:00 Pedro Cheek [facility] BODY FLUID FUNGUS CULTURE (BACTEC BOTTLE) 2022-01-20 19:30:00 Pedro Cheek [facility] POCT GLUCOSE (AUTOMATED) 2022-01-20 17:58:00 Jackie Singh [facility] POCT GLUCOSE (AUTOMATED) 2022-01-20 15:13:00 Jackie Singh [facility] LIPID PANEL ([id number])(TOTAL CHOLESTEROL, TRIGLYCERIDES, HDL) 2022-01-20 11:08:00 Joey Hobson [facility] EXTRA TUBE LT. GREEN 2022-01-20 11:08:00 Shorty Cheek [facility] CBC WITH DIFF 2022-01-20 10:09:00 Dali Garduno [facility] POCT GLUCOSE (AUTOMATED) 2022-01-20 04:43:00 Jackie Singh [facility] POCT GLUCOSE (AUTOMATED) 2022-01-20 02:00:00 Jackie Singh [facility] POCT GLUCOSE (AUTOMATED) 2022-01-19 18:41:00 Jackie Singh [facility] XR CHEST 1 VW 2022-01-19 16:11:00 Dali Garduno [facility] POCT GLUCOSE (AUTOMATED) 2022-01-19 15:15:00 Jackie Singh [facility] HOME HEALTH - OTHER 2022-01-19 06:01:00 Doctor Michael vallejo, [place] [facility] POCT GLUCOSE (AUTOMATED) 2022-01-19 03:29:00 Jackie Singh [facility] POCT GLUCOSE (AUTOMATED) 2022-01-18 23:40:00 Jackie Singh [facility] POCT GLUCOSE (AUTOMATED) 2022-01-18 18:20:00 [facility] [facility] PO[facility] GLUCOSE (AUTOMATED) 2022-01-18 14:13:00 Jackie Singh [facility] CBC WITH DIFF 2022-01-18 12:24:00 Dali Garduno [facility] POCT GLUCOSE (AUTOMATED) 2022-01-18 05:47:00 Jackie Singh [facility] POCT GLUCOSE (AUTOMATED) 2022-01-17 22:57:00 Francisco [facility] POCT GLUCOSE (AUTOMATED) 2022-01-17 18:51:00 [facility] POCT GLUCOSE (AUTOMATED) 2022-01-17 15:01:00 Francisco [facility] MAGNESIUM 2022-01-17 12:00:00 Hieu Hoang [facility] BASIC METABOLIC PANEL (NA, K, CL, CO2, GLUCOSE, BUN, CREATININE, CA) 2022-01-17 12:00:00 Viktor, [facility] CBC WITHOUT DIFF 2022-01-17 12:00:00 Hieu Hoang [facility] POCT GLUCOSE (AUTOMATED) 2022-01-17 04:08:00 Jackie Singh [facility] POCT GLUCOSE (AUTOMATED) 2022-01-16 22:06:00 Francisco [facility] POCT GLUCOSE (AUTOMATED) 2022-01-16 17:29:00 Francisco [facility] POCT GLUCOSE (AUTOMATED) 2022-01-16 13:53:00 Francisco [facility] MAGNESIUM 2022-01-16 12:23:00 Hieu Hoang [facility] BASIC METABOLIC PANEL (NA, K, CL, CO2, GLUCOSE, BUN, CREATININE, CA) 2022-01-16 12:23:00 Viktor [facility] CBC WITH DIFF 2022-01-16 12:23:00 Viktor Hieu [facility] VITAMIN D, 25-[place] 2022-01-16 12:23:00 Felicitas Olmos [facility] POCT GLUCOSE (AUTOMATED) 2022-01-16 10:56:00 Jackie Singh [facility] POCT GLUCOSE (AUTOMATED) 2022-01-16 07:17:00 [facility] POCT GLUCOSE (AUTOMATED) 2022-01-16 04:19:00 [facility] POCT GLUCOSE (AUTOMATED) 2022-01-15 23:21:00 [facility] POCT GLUCOSE (AUTOMATED) 2022-01-15 23:15:00 [facility] POCT GLUCOSE (AUTOMATED) 2022-01-15 18:04:00 [facility] POCT GLUCOSE (AUTOMATED) 2022-01-15 16:03:00 [facility] POCT GLUCOSE (AUTOMATED) 2022-01-15 13:58:00 [facility] MAGNESIUM 2022-01-15 10:35:00 [facility] BASIC METABOLIC PANEL (NA, K, CL, CO2, GLUCOSE, BUN, CREATININE, CA) 2022-01-15 10:35:00 Dani Delgado [facility] CBC WITHOUT DIFF 2022-01-15 10:35:00 Magy Delgado [facility] FREE T3 2022-01-15 10:35:00 Felicitas Olmos [facility] POCT GLUCOSE (AUTOMATED) 2022-01-15 10:13:00 [facility] POCT GLUCOSE (AUTOMATED) 2022-01-15 06:23:00 [facility] POCT GLUCOSE (AUTOMATED) 2022-01-15 02:10:00 [facility] POCT GLUCOSE (AUTOMATED) 2022-01-14 23:04:00 [facility] POCT GLUCOSE (AUTOMATED) 2022-01-14 21:49:00 [facility] POCT GLUCOSE (AUTOMATED) 2022-01-14 17:46:00 [facility] POCT GLUCOSE (AUTOMATED) 2022-01-14 14:09:00 [facility] POCT GLUCOSE (AUTOMATED) 2022-01-14 11:56:00 [facility] POCT GLUCOSE (AUTOMATED) 2022-01-14 10:50:00 Jackie Singh [facility] PHOSPHORUS 2022-01-14 09:40:00 Huber Packer [facility] MAGNESIUM 2022-01-14 09:40:00 Dani Delgado [facility] BASIC METABOLIC PANEL (NA, K, CL, CO2, GLUCOSE, BUN, CREATININE, CA) 2022-01-14 09:40:00 Dani Delgado [facility] CBC WITHOUT DIFF 2022-01-14 09:40:00 Magy Delgado [facility] POCT GLUCOSE (AUTOMATED) 2022-01-14 06:31:00 Jackie Singh [facility] POCT GLUCOSE (AUTOMATED) 2022-01-14 03:03:00 Jackie Singh [facility] POCT GLUCOSE (AUTOMATED) 2022-01-13 23:14:00 Jackie Singh [facility] POCT GLUCOSE (AUTOMATED) 2022-01-13 21:34:00 Jackie Singh [facility] POCT GLUCOSE (AUTOMATED) 2022-01-13 19:37:00 Jackie Singh [facility] POCT GLUCOSE (AUTOMATED) 2022-01-13 18:00:00 Jackie Singh [facility] POCT GLUCOSE (AUTOMATED) 2022-01-13 15:39:00 Jackie Singh [facility] BASIC METABOLIC PANEL (NA, K, CL, CO2, GLUCOSE, BUN, CREATININE, CA) 2022-01-13 12:58:00 Huber Packer [facility] CBC WITH DIFF 2022-01-13 12:57:00 Huber Packer [facility] POCT GLUCOSE (AUTOMATED) 2022-01-13 03:56:00 Jackie Singh [facility] US RETROPERITONEAL LIMITED 2022-01-12 22:43:27 Josue [facility] UREA NITROGEN, URINE RANDOM 2022-01-12 19:07:00 Josue [facility] SODIUM, URINE RANDOM 2022-01-12 19:07:00 Glenn Salas [facility] PROTEIN CREAT RATIO URINE RANDOM 2022-01-12 19:07:00 [facility]ATED) 2022-01-12 19:04:00 Jackie Singh [facility] PHOSPHORUS 2022-01-12 19:02:00 Huber Packer [facility] BASIC METABOLIC PANEL (NA, K, CL, CO2, GLUCOSE, BUN, CREATININE, CA) 2022-01-12 19:02:00 [facility] 1 VW 2022-01-12 16:40:00 Rodolfo Scales [facility] CYTO PLEURAL FLUID 2022-01-12 15:53:00 Rodriguez, Luz [facility] GLUCOSE BODY FLUID 2022-01-12 15:30:00 Rodriguez, Luz [facility] T.PROTEIN BODY FLUID 2022-01-12 15:30:00 Rodriguez, Zhen escamilla [facility] BODY FLUID DIRECT COUNT 2022-01-12 15:30:00 Rodriguez, Serina omar [facility] BODY FLUID (BACTEC BOTTLE) 2022-01-12 15:30:00 Gumaro Centeno [facility] AFB CULTURE 2022-01-12 15:30:00 Jensen Huynh [facility] LDH TOTAL BODY FLUID 2022-01-12 15:30:00 Rodriguez, Zhen escamilla [facility] BODY FLUID FUNGUS CULTURE (BACTEC BOTTLE) 2022-01-12 15:30:00 Gumaro Huynh [facility] TRANSTHORACIC ECHO (TTE) COMPLETE W/ CONTRAST 2022-01-12 14:17:53 Josue [facility] PROTEIN TOTAL 2022-01-12 10:24:00 Rodriguez, Lu[facility] URIC ACID 2022-01-12 10:24:00 Owen Salas [facility] MAGNESIUM 2022-01-12 10:24:00 Dosheather [facility] RHEUMATOID FACTOR 2022-01-12 10:24:00 Huber Packer [facility] FREE T4 2022-01-12 10:24:00 Felicitas Olmos [facility] THYROID STIMULATING HORMONE 2022-01-12 10:24:00 [facility] BASIC METABOLIC PANEL (NA, K, CL, CO2, GLUCOSE, BUN, CREATININE, CA) 2022-01-12 10:24:00 [facility] VANCOMYCIN RANDOM LEVEL 2022-01-12 10:24:00 Dostal Ca rlos [facility] CBC WITH DIFF 2022-01-12 10:24:00 [facility] ANTI-NUCLEAR ANTIBODY SCREEN 2022-01-12 10:24:00 Huber Packer [facility] ANTI-NUCLEAR ANTIBODY-PATHOLOGIST INTERPRETATION 2022-01-12 10:24:00 Birdie Huber [facility] SHANNAN AURIS CULTURE 2022-01-12 07:09:00 Jerome Salas [facility] AC PANEL 20 + LACTIC ACID 2022-01-12 00:16:00 Brian Latham [facility] MAGNESIUM 2022-01-12 00:10:00 DosOwen romero [facility] TROPONIN I 2022-01-12 00:10:00 [facility] Latham [facility] COMP. METABOLIC PANEL (01358) 2022-01-12 00:10:00 Brian Latham [facility] CBC WITH DIFF 2022-01-12 00:10:00 Brian Latham [facility] GLYCOSYLATED HEMOGLOBIN (A1C) 2022-01-12 00:10:00 Dosheather [facility] N-TERMINAL PRO-BNP 2022-01-12 00:10:00 Brian Latham [facility] CRITICAL CARE 2022-01-11 21:59:38 Brian Latham [facility] CT THORAX WO CONTRAST 2022-01-11 16:11:00 Khang Latham [facility] CT FEMUR RIGHT WO CONTRAST 2022-01-11 16:11:00 Brian Latham [facility] BLOOD CULTURE SCREEN 2022-01-11 14:53:00 Gabriele Latham [facility] XR CHEST 1 VW 2022-01-11 14:45:00 Brian Latham [facility] AC PANEL 20 + LACTIC ACID 2022-01-11 14:45:00 Brian Latham [facility] HB ECG ROUTINE & RHYTHM STRIP 2022-01-11 14:43:37 Brian Latham [facility] BLOOD CULTURE SCREEN 2022-01-11 14:36:00 Gabriele Latham [facility] LIPASE 2022-01-11 14:36:00 [facility] TROPONIN I 2022-01-11 14:36:00 Brian Latham [facility] COMP. METABOLIC PANEL ([id number]) 2022-01-11 14:36:00 Brian Latham [facility] CBC WITH DIFF 2022-01-11 14:36:00 Brian Latham [facility] PROTHROMBIN TIME / INR 2022-01-11 14:36:00 Cb Latham [facility] ACTIVATED PARTIAL THRMPLAS MURALI 2022-01-11 14:36:00 Brian Latham [facility] N-TERMINAL PRO-BNP 2022-01-11 14:36:00 Brian Latham [facility] EXTERNAL PROVIDER RECORDS 2022-01-11 06:01:00 Do ctor Unassigned, [place] [facility] EMERGENCY DEPARTMENT DOCUMENTS 2022-01-11 06:01:00 Doctor Unassigned, [place] [facility] HOME HEALTH - OTHER 2021-12-23 05:01:00 Doctor Michael haskinsgnsakina, [place] [facility] Encounters Start Date/Time End Date/Time Encounter Type Admission Type Attending Clinicians Care Facility Care Department Encounter ID Source 2021-12-23 12:57:25 Outpatient [facility] [id number] [facility] 2022-02-01 00:00:00 2022-02-01 00:00:00 Case Management Renetta Killian [facility] [id number] [facility] 2022-01-26 00:00:00 2022-01-26 00:00:00 Transition of Care Inna Ortega [id number] [facility] 2022-01-11 08:31:00 2022-01-25 18:40:00 Inpatient Michael [facility] [id number] [facility] 2022-01-11 08:31:00 2022-01-25 18:40:00 Hospital Encounter Brian Latham, Frank Garcia, Renee Cheek, Pedro Villalobos, [facility] [id number] [facility] 2021-12-23 00:00:00 2021-12-23 00:00:00 Orders Only Doctor Unassigned, [place] [facility] [id number] [facility] 2021-12-16 08:40:00 2021-12-22 22:00:00 Inpatient [facility] [id number] [facility] 2021-12-16 19:11:00 2021-12-22 17:00:00 Inpatient E LEILA [facility] [id number] [facility] Results Test Description Test Time Test Comments Results Result Co mments Source [facility] GLUCOSE (AUTOMATED)2022-01-25 18:02:16* Test Item Value Reference Range Interpretation Comme nts POCT GLU (test code = 6960124121) 155 mg/dL 70-110 H Lab Interpretation (test cod e = 25941-4) Abnormal [facility] GLUCOSE (AUTOMATED)2022-01-25 14:06:14* Test Item Value Reference Range Interpretation Comme nts POCT GLU (test code = 9657776948) 180 mg/dL 70-110 H Lab Interpretation (test cod e = 71178-8) Abnormal [facility] GLUCOSE (AUTOMATED)2022-01-25 01:48:08* Test Item Value Reference Range Interpretation Comme nts POCT GLU (test code = 7673913640) 106 mg/dL 70-110 Lab Interpretation (test cod e = 94585-8) Normal [facility] GLUCOSE (AUTOMATED)2022-01-24 22:48:46* Test Item Value Reference Range Interpretation Comme nts POCT GLU (test code = 3184232862) 170 mg/dL 70-110 H Lab Interpretation (test cod e = 34154-0) Abnormal [facility] GLUCOSE (AUTOMATED)2022-01-24 17:56:39* Test Item Value Reference Range Interpretation Comme nts POCT GLU (test code = 3465757163) 212 mg/dL 70-110 H Lab Interpretation (test cod e = 30285-0) Abnormal [facility] GLUCOSE (AUTOMATED)2022-01-24 14:08:13* Test Item Value Reference Range Interpretation Comme nts POCT GLU (test code = 0311865494) 166 mg/dL 70-110 H Lab Interpretation (test cod e = 16306-6) Abnormal [facility] GLUCOSE (AUTOMATED)2022-01-24 02:29:06* Test Item Value Reference Range Interpretation Comme nts POCT GLU (test code = 8765821925) 164 mg/dL 70-110 H Lab Interpretation (test cod e = 17551-6) Abnormal [facility] GLUCOSE (AUTOMATED)2022-01-23 23:25:34* Test Item Value Reference Range Interpretation Comme nts POCT GLU (test code = 1292968090) 134 mg/dL 70-110 H Lab Interpretation (test cod e = 25024-3) Abnormal [facility] GLUCOSE (AUTOMATED)2022-01-23 18:12:25* Test Item Value Reference Range Interpretation Comme nts POCT GLU (test code = 3669188251) 151 mg/dL 70-110 H Lab Interpretation (test cod e = 69897-5) Abnormal [facility] GLUCOSE (AUTOMATED)2022-01-23 15:15:27* Test Item Value Reference Range Interpretation Comme nts POCT GLU (test code = 6688905173) 153 mg/dL 70-110 H Lab Interpretation (test cod e = 27258-7) Abnormal [facility] GLUCOSE (AUTOMATED)2022-01-23 03:07:13* Test Item Value Reference Range Interpretation Comme nts POCT GLU (test code = 1892284295) 175 mg/dL 70-110 H Lab Interpretation (test cod e = 39543-6) Abnormal [facility] GLUCOSE (AUTOMATED)2022-01-22 23:44:01* Test Item Value Reference Range Interpretation Comme nts POCT GLU (test code = 7157970246) 260 mg/dL 70-110 H Lab Interpretation (test cod e = 24423-8) Abnormal [facility] GLUCOSE (AUTOMATED)2022-01-22 18:13:08* Test Item Value Reference Range Interpretation Comme nts POCT GLU (test code = 2680920384) 302 mg/dL 70-110 H Lab Interpretation (test cod e = 78118-2) Abnormal [facility] GLUCOSE (AUTOMATED)2022-01-22 16:21:54* Test Item Value Reference Range Interpretation Comme nts POCT GLU (test code = 0355648912) 314 mg/dL 70-110 H Lab Interpretation (test cod e = 42267-8) Abnormal [facility] METABOLIC PANEL (NA, K, CL, CO2, GLUCOSE, BUN, CREATININE, CA)2022-01-22 11:21:18* Test Item Value Reference Range Interpretation Comme nts NA (test code = 4985461726) 130 mmol/L 135-145 L K (test code = 8275906698) 4.4 mmol/L 3.5-5.0 CL (test code = 8022135493) 87 mmol/L 98-108 L CO2 TOTAL (test code = 0572202718) 36 mmol/L 23-31 H AGAP (test code = 0506544158) 2-16 BUN (test code = 4423359024) 93 mg/dL 7-23 H GLUCOSE (test code = 2982121732) 217 mg/dL 70-110 H CREATININE (test code = 5444882472) 2.02 mg/dL 0.50-1.04 H CALCIUM (test code = 4848595780) 8.4 mg/dL 8.6-10.6 L eGFR (test code = 6985613317) mL/min/1.73m2 LINDA (test code = LINDA) Association of Glomerular Filtration Rate (GFR) and Staging of Kidney Disease* + --+ --+ ------+| GFR (mL/min/1.73 m2) ?| With Kidney Damage ?| ?Without Kidney Damage+ --------+ --------+ +| ?>90 ?| ?Stage one ?| ? Normal ?+ ---+ ---+ -------+| ?60-89 ?| ?Stage two ?| ? Decreased GFR ? + --+ --+ ------+| ?30-59 ?| ?Stage three ?| ? Stage three ? + --+ --+ ------+| ?15-29 ?| ?Stage four ? | ? Stage four ?+ ---+ ---+ -------+| ?<15 (or dialysis) ? ?| ?Stage five ? | ? Stage five ?+ ---+ ---+ -------+ *Each stage assumes the associated GFR level has been in effect for at least three months. ?Stages 1 to 5, with or without kidney disease, indicate chronic kidney disease. Notes: Determination of stages one and two (with eGFR >59mL/min/1.73 m2) requires estimation of kidney damage for at least three months as defined by structural or functional abnormalities of the kidney, manifested by either:Pathological abnormalities or Markers of kidney damage (including abnormalities in the composition of the blood or urine or abnormalities in imaging tests). Lab Interpretation (test code = 26208-0) [facility] 11:21:18* Test Item Value Reference Range Interpretation Comme nts MAGNESIUM (test code = 9242725891) 1.8 mg/dL 1.7-2.4 Lab Interpretation (test cod e = 19310-5) Normal [facility] WITH [id number] 11:00:39* Test Item Value Reference Range Interpretation Comme nts WBC (test code = 6690-2) See_Comment H [Automated message] The system which generated this result transmitted reference range: 4.30 - 11.10 10*3/?L. The reference range was not used to interpret this result as normal/abnormal. RBC (test code = 789-8) See_Comment L [Automated message] The system which generated this result transmitted reference range: 3.93 - 5.25 10*6/?L. The reference range was not used to interpret this result as normal/abnormal. HGB (test code = 718-7) 9.2 g/dL 11.6-15.0 L HCT (test code = 4544-3) 29.1 % 35.7-45.2 L MCV (test code = 787-2) 89.5 fL 80.6-95.5 MCH (test code = 785-6) 28.3 pg 25.9-32.8 MCHC (test code = 786-4) 31.6 g/dL 31.6-35.1 RDW-SD (test code = 14852-4) 51.3 fL 39.0-49.9 H RDW-CV (test code = 788-0) 15.7 % 12.0-15.5 H PLT (test code = 777-3) See_Comment [Automated message] The system which generated this result transmitted reference range: 166 - 358 10*3/?L. The reference range was not used to interpret this result as normal/abnormal. MPV (test code = 49538-3) 12.2 fL 9.5-12.9 NRBC/100 WBC (test code = 8817167280) See_Comment [Automated message] The system which generated this result transmitted reference range: 0.0 - 10.0 /100 WBCs. The reference range was not used to interpret this result as normal/abnormal. NRBC x10^3 (test code = 4422935680) See_Comment [Automated message] The system which generated this result transmitted reference range: 10*3/?L. The reference range was not used to interpret this result as normal/abnormal. GRAN MAT (NEUT) % (test code = 770-8) 82.5 % IMM GRAN % (test code = 3236517039) 0.60 % LYMPH % (test code = 736-9) 9.9 % MONO % (test code = 5905-5) 6.2 % EOS % (test code = 713-8) 0.5 % BASO % (test code = 706-2) 0.3 % GRAN MAT x10^3(ANC) (test code = 4202145789) 14.03 10*3/uL 1.88-7.09 H IMM GRAN x10^3 (test code = 1900906253) 0.10 10*3/uL 0.00-0.06 H LYMPH x10^3 (test code = 731-0) 1.69 10*3/uL 1.32-3.29 MONO x10^3 (test code = 742-7) 1.05 10*3/uL 0.33-0.92 H EOS x10^3 (test code = 711-2) 0.08 10*3/uL 0.03-0.39 BASO x10^3 (test code = 704-7) 0.05 10*3/uL 0.01-0.07 Lab Interpretation (test code = 10324-5) [facility] 03:09:06* Test Item Value Reference Range Interpretation Comme nts POCT GLU (test code = 2189965383) 73 mg/dL 70-110 Lab Interpretation (test cod e = 39307-6) Normal [facility] [id number] 00:08:07* Test Item Value Reference Range Interpretation Comme nts Case Report (test code = 2396349725) Non-Gynecologic Cytology ?Case: [id number] ?Authorizing Provider: ?Luther Conner MD Collected: ? 01/20/2022 1347 ?Ordering Location: ? ? [facility] Received: ?01/21/2022 1011 ? (ERIN 11D) ?Specimen: ? ?PLEURAL, LEFT, EFFUSION ? Final Diagnosis (test code = 0868678965) x2aqvBQcJZObv1dfDNRys GFuZzEwMzNcZnRuYmpcdW MxIHtccnRmMVxlcGljMTA hABSvXQ2smOtaoMv1aXyg JWYdtoD0bLVoJHazk9pjF WS7k7gbsoqaVWKqFQreWc 9udHRibHtcZjAgQXJpYWw 4bD35EQUbaF9toLPcLQt3 XHBhcGVydzEyMjQwXHBhc HFhgDU4QQSkCI4rldolGB qoLIpaPDZaamD8DKGgwXS kM2SoYUPwSD9gpqdaNXK1 WPvgDGPfPQQ5TaSyMRNcd 8Cxajb2PcJooASrHWtwtB FpblxmczIwXHBhclxiIEE uIFBMRVVSQSwgTEVGVDsg QMjSWcZYY0IVWfFYF9zKS EZMVUlEOlxwYXIgICAgIC IzQCqJJprFAV3EBKyCTqu dIHdFPUzWCRvAFRnTW1qW QLZjOMMpduJpJDIgIE3sH uECXOSLZyXyUg2NUJ9ZEP qFFnZJQWBPBZfFLsUrT4G ZKHLIUN3FQnQvXVKhbqav EIWqAiNxRmRzSjDFw3Vtk BhcI18lacHyvXjpRWGxQE ByBkB6BkFrVnOmNMR9FQp fWU7opFSmULGpojKhGhec pkWlOVZyzz49PZT0DwLly 9Z5INZbGkFaENMuBE1uiV ecOSYvUK1rOCBfD1mweI5 ghlt7JoPfCQLtKrI3PFXd deQ0Akf9ATBdJHzzi4abk 0WlI7HprHOquKw4z0okGI KjAhZ7lDRwFVqxB6hfusB gnSJtUZWqWQb4rOunEyDz SOKzq6bxveSyXqPyJTOeJ XNzFOFxlRalath4oS63BR JdwY8lrEMlSLwjwtAiAtJ 9PKmkYWNoNyW4HIMccUFa FKDjA3leCLInEBfeSYByI LlurCYiOBG6oUchd7M4aT VzaGVldHtcZjBcZnMyOCB Dx2GyRXl0fKckQ6WoYMYx HdG2vQVqHRUwNVjwBHYaF PAxztM7aO47HNbfmjB9aG Tvh1Lak69je409rU8aeUF sSYM9ICGyPSPxrYJuLLLw AFX3JKUrrHZyK2nuBGXmO W4dirmiSFofWIcrXXRvdS K2BTSzhIXkQ5AcDVYdHHk jWWYbdod7XlAgYw3rqZOs pUgbVEcls8xun8dtzUYaU sz0SIMyChCjKroxGGiog4 Dxr3naGXFkwg8yQDS3uDP srHxbe0M0kRQzVWBblKWf fxYdJDLcIiL3CBoqWL5yq c88ZOVrOXA7te5fbIFonJ byjePjrSBiVRpvP6PyOJX ys472SVTuQ6XsOFSmu4C7 nuHnTnRkLIYrlBJ0adI6E YFwDKx7dKIsqxU3qxLvrQ KuT8hfwB0cAFEbZF3dbal rb7sbGAroWJwkOOJohBS6 gyI6ZSPwdDKqL7UpeB0jJ BViUFylMQLgdlv7VqFoEt 9vdGVyeTcyMFxzYmtwYWd lXHBnbmNvbnRccGduZGVj XHBsYWluXHBsYWluXGYwX IVbUoDbxBycwBlpfX6dGt GvMuGqPHyoWB8qMOPdV5k acLZhOTYfBJEgR3iwFsNu qO0kjXaaQPvbXwQfTpGbL FxwYXIgSSBoYXZlIHBlcn XnqsNohSvprrV3tMX2KAX rCJhoPNHmZLDnvUVulq0p dCmpEURmHE2mTKTnsjQcN GkpmSdmEWkqPUB9MJGhpD VudHMgbWFkZSBieSByZXN gOGPnyIQtRAXrhBuun3Ep o2TytXO8rW8sw4bey6PwW CUzdSU1EL55syW1lD0kKK SiWA7zSYBgXQ1tfEIfoUK vQYCvb21kwWxhouAjNGEv cnQuXHBsYWluXGYyXGZzM jhcbGFuZzEwMzNcaGljaF xrApnjMlQsPAQzGKeiW4d xKnXbXcTnHSakWCA9bJ== Final Diagnosis Comment (test code = [id number]) t9kxiDUaQLAkxGLqBFEvW HafzmMzKGBmbTHoQ4Rfap eeUQgfGJ5pQI9wqBrthAR ihINrSEGiCdMji9vej153 sUMpk3hpKPCCcobcqNs5o FznG06hs5Y8KguqE53xqM LlQPZ9DIDwVAJtjBNxALK jQZE4TAIzsJLbP2quUVIl AV9dgrwkJFdzKBpqRQIwq XX1KJImtBFaL1BpWLVzAP tvYNDpnym0SyUfSt1mhML yeTcyMFxwYXJkXHBsYWlu LNUuBpDeC14tURQxAAXjb 1tpFaFvwYglSDl6kDZes3 X5oRIhJMHdqSE1yI0ogXT hoffeQG8lTOOcQZX5rHPz EV8yn061dZCceZWkLWWpw MgePhPQCAeueUg3CNTud0 IkeUHvnIosIO53QRQqsHn zLlxwYXJ9 Clinical Information (test code = [id number]) Clinical Hx: 76 yo F w/ exudative pleural effusion Gross Description (test code = [id number]) c3wtlNNkYDFwyQIVJQLoY QMpOF6loIdgkWh3sLlkWK HwxaA3fCVdEVwfd9qcGLM 2q8ygthVGMeprAVRyXNui LOShsbsmVkQ2HAjuMDJyz lqmOYn2JHlzWMXnzAP2AH JzbDTdZ7CaZZTeVR2ynlr 1XTH7OCsvSLLpRzE5ZZIm PjSzFlknGKk3TYFysmR4A sv7TQCzCJGjiFDmy1R2KA gcffocDILuqRSyS911OPm ex3CvqPYgIYgnpURmPDNZ GqkdAalqsWpqy2YssJBzH GlkIDUxMDAwIFxcbmggXF n5BMSnPHswyKArRM3rsVw cQwlrcMsvr7XptEKzKMev YARgNMPxYFfiSATiNQ1NQ eVxOPY7YXq1NXAlQLd9IP z7FS0YTdBdASBgLHE9JXB 0ZuWpIMs2UXecZG0BEFF4 PnciVYm1YChnOCGqWPYtY Hf2QLNtEOalHCByjBWiCV xcZnMgMTAgXFxmbCBcXG5 jfVxwbGFpblxmczIwXHBh ciANClxwbGFpblxlcGljT mVzdERvYzEgDQpcbHRycG FyXGxpbjBccmluMCANClx sdHJjaFxmczIyXHBhciAN CkExLiAgUExFVVJBLCBMR QOPGgHVUE5PVRHCOlJCG1 lTIEZMVUlEXHBhciANClJ vU6JhioDoUCQsGUOmCRjz KJEaJDJkW6HjydWpSnNgQ Y8lXYSfJhx5mJJxMNQwph JCYhLgOZPaqkQvUHVzo7w pZGVzICgxIFBhcGFuaWNv yBHopWFjsGEco0HitzasX JGQg99qdl47c6y5BIA2hR 9bqLfpSDFiSSBeHUOzoF7 wcgNxWOMkAYLicsL3dA7w UT9HJWQdjEINGGU9XA8oM Em7FHknTOUzK8FlU3Yprr NgbSRyMVBakeNim0xyYOA 1XHNsbXVsdDBcZnMxNlxw RJW9ZWOgCGhyQS2YGLHsV FG7GPyvaI86lWYbAA9LIH EiDRywVBUtEJIxbsG8UHO jnDCdALT6HI6boPhdjBDe vvujyaL3NL7UdG== Disclaimer (test code = [id number]) q5vjqUZkWNOlx5ibLHLda GFuZzEwMzNcZnRuYmpcdW FmZUqcaaMjUWpki9YlV3V yMjAwMFxhbnNpXGRlZmxh ithuEHLqMRO5ccQkPMCyE YqiWJJcCYmrYe5avTFvvM tsRsHmTKCwa7vjquNIMHh aUtRvY050DJIcLWrms4fe r8YeYDBvtZYgw7H2WYEVu viomJa0vKeqL42xj3B9Xx ljL7shPTTlRWUsF4OpYG8 jNZKxJar8BNU4QQB1CNVx HAGqV8LjWL6pTPNklAOzH Tp7z0aoaYokRELhFSF4v5 iuKKqwqmAgSG7yuz1ryGc 9d2dtikDpPZUjSUUtsBUV HMSnC8PasBbuAj9wwDa4t BfcFnjoISV0Exq4QJ0atf 63zuu9dNrvKPEqkgqbArA 7FDvtWNLivpieGVc6IRcb OUImhZA8TINjcRCzQ9FbS SMlET4ourp9AQF9RIurFN FlEgP7ZCBctONmPMMpoDq uFNzkr469AME7RxYpZC5h G2Zmm1K7dT2ldBEuPVYkg EFhTdOlDQFird8xaHKjAO tgd1NiNJU1qvR9bGAxsAA bTKOaVB48Gmbwx8KsIhue g3JsB81vgIU8BHbpv4pcT B4cSdC7apKnLAiye1yduH 3mBuH4QIjaSS2wLV0hTUF sgS7irbjnLHAsIjFbbfqs NHQlbQeinuYaFw2fcOhnV NL4XVbvJ6vypF4gFbL6UB vnN8bxcG6vXBy3HZhxuEG 6WWBahE4uZG7umrlwx0tu KAxePZmgJHMoqcG9jhL1L RZxpEYoP5UfaA0bCEAtRG 2dyedgi4axDOK3DCwhYYQ jDHB9WuGmDLZpz6Keubv4 ZsSih6PduABjXGzuH73gf 832TBGtntAtB4nmjKZdna tdwHLzrjqwQPdhlfS8MDZ lnqTjb1LrHUKeYHH4HYvq QFlfpVHuWJLwmFiox3raL 3RscGFyXHBsYWluXGYxXG ZzMjBcbGFuZzEwMzNcaGl jaFxmMVxkYmNoXGYxXGxv U5dvKpZhW1QkEYNeImRpo DMwH6isGNeqcdOxPSHxvd HtqVS2ESpbF2w1ZMYurhF sjFx4shZpRlBoAVPcHOA0 FLoqzTJqNPPoa4Fvquujc YVjJt6klWOzZGJxpU3dER SgPVJcXUqhIH7duCl4YFO WsZQaeKQgBmOWONOsHL24 fcSmQVBJpmgct7C5FZdaC XGdm7MzgOSiE3akv1KaEN Rry88hGC8rd6E8y5zmVXO 5NA6jk8SsKAAndWKgaEEj SBXjg9Expwfkf1CdHGUln wDlk6WeTGHbsaIckHUjXA JbvaIiso8lmkZsWEOgZPK aX0IaaoipaToqezCdUOIt we5zilMuJMO7IUKJPJKiF KWej5HzsX9zfBAKIOH9fK Hmmx9dznLGlEEhAIVkcr4 2QJNvKT1cJ7zfXGUhCMRm hpUofJMvx0IiQXIwuPU7q YObTJ8KEcLSv97bYQIrEV YTvsObUVTgmEeqlGF5ycJ 1pH4rSToWZLVhSce+IFRo CJQUTVXrFP2mcrXlr9Ojt aKjvTtqSCZzqVTbr8ThvG Bxs0BjjBkum7MtrAMkkCY gQK7mHQMqdvvaXABiJAKB RjSQQRHptiY5l6DqQXXvH MKqCRA3eNclijr6AKEdxJ 8jWKEcO9hwwunxHEpkHRO ny4VlqO0tcKWCtNTyb1Pr aVPsqETJaEMpNX1ioeEbC GhNCLrQNCG3rtRqGNTch1 AiEVazX0vmU05mxWsrlWo 4qEL6ZHU4cN5tLmj+IFxw YXJccGFyIEFwcHJvcHJpY JJtkWiilgLgQ8RptmApuQ 0mfGQyzdGwUR9sSG1zV6O 2yGPsEJNnoaMdq4vsUOva dmUgYmVlbiByZXZpZXdlZ JLmb5EmJOrgFXM7JYcaqm BpbmNsdWRpbmcgSCZFLCB UuKJrrIBaTMR6NLivtdPa vvOaOW4crG1kcDipoC8nt XEzzBB4atecUVPwDAJolV wdDJSyOX5cvBUyEEKvnuC QdRszyVTuxB0fO4RhZODd ZGBfhe6rSEYplV2wREgam 2VydmljZXMgYXJlIHBlcm Vfqp6hFHXesIGLFV3EDSx uhTGwo2UlbsOtK8qYTPT2 NUQwNjYwMjgxKSBleGNlc MGdTOEtmz45DBLxqR0blS huEWMdxH6znB9jcUvuvG5 kXnTwZoSeIXcmKI1iBHYs V3sdpIWbGLNcPCOyD4izM cJknW3piLjsZHyzNhNrZu JhSOujFPI5cR== Embedded Images (test code = [id number]) [facility] GLUCOSE (AUTOMATED)2022-01-21 22:49:17* Test Item Value Reference Range Interpretation Comme nts POCT GLU (test code = 7157379749) 186 mg/dL 70-110 H Lab Interpretation (test cod e = 51608-4) Abnormal [facility] GLUCOSE (AUTOMATED)2022-01-21 18:05:56* Test Item Value Reference Range Interpretation Comme nts POCT GLU (test code = 7655346415) 334 mg/dL 70-110 H Lab Interpretation (test cod e = 32940-8) Abnormal [facility] GLUCOSE (AUTOMATED)2022-01-21 16:14:57* Test Item Value Reference Range Interpretation Comme nts POCT GLU (test code = 7639331758) 302 mg/dL 70-110 H Lab Interpretation (test cod e = 61177-4) Abnormal [facility] GLUCOSE (AUTOMATED)2022-01-21 02:00:56* Test Item Value Reference Range Interpretation Comme nts POCT GLU (test code = 5078278547) 185 mg/dL 70-110 H Lab Interpretation (test cod e = 88186-8) Abnormal [facility] GLUCOSE (AUTOMATED)2022-01-20 22:48:32* Test Item Value Reference Range Interpretation Comme nts POCT GLU (test code = 8897269075) 167 mg/dL 70-110 H Lab Interpretation (test cod e = 16615-5) [facility]normal [facility] [id number] 21:51:10* Test Item Value Reference Range Interpretation Comme nts BF COLOR (test code = 6171750219) Yellow TURBIDITY (test code = 1668965930) Slightly Turbid BF WBC Count (test code = 2402416786) See_Comment [Automated message] The system which generated this result transmitted reference range: /?L. The reference range was not used to interpret this result as normal/abnormal. BF RBC Count (test code = 5470587651) See_Comment [Automated message] The system which generated this result transmitted reference range: /?L. The reference range was not used to interpret this result as normal/abnormal. LINDA (test code = LINDA) The reference range and other method performance specifications have not been established for this body fluid. ?The test results must be integrated into the clinical context for interpretation. [facility] FL[facility] MANUAL [id number] 21:51:10* Test Item Value Reference Range Interpretation Comme nts BF SEGS% (test code = 00218-5) 30 % BF LYMPHS% (test code = 19187-8) 25 % BF MACROPHAGE% (test code = 41345-3) 44 % BF MESOS% (test code = 30235-5) 1 % BF #CELLS CNTD (test code = 0630375668) cells/u L [facility] TOTAL BODY [id number] 21:18:52* Test Item Value Reference Range Interpretation Comme nts LDH BF (test code = 9121248549) 183 U/L UNSPUN BODY FLUID COLOR (test code = 4066562323) Yellow UNSPUN BODY FLUID CLARITY (test code = 9983692888) Clear SPUN BODY FLUID COLOR (test code = 0625010632) Yellow SPUN BODY FLUID CLARITY (test code = 8737979517) Clear Sediment (test code = 3087224820) The sediment volume is <0.01 mLs of the total fluid volume of 3 mls and its color is white and red. LINDA (test code = LINDA) Test developed and characteristics determined by [facility] Laboratory Services. [facility] Protein Body Tqfta8487-82-72 21:18:47* Test Item Value Reference Range Interpretation Comme nts T.PROT BF (test code = 5276111698) 5400.0 mg/dL UNSPUN BODY FLUID COLOR (test code = 9696154750) Yellow UNSPUN BODY FLUID CLARITY (test code = 6020655220) Clear SPUN BODY FLUID COLOR (test code = 2224784279) Yellow SPUN BODY FLUID CLARITY (test code = 0358561609) Clear Sediment (test code = 1414581567) The sediment volume is <0.01 mLs of the total fluid volume of 3 mls and its color is white and red. LINDA (test code = LINDA) Test developed and characteristics determined by [facility] Laboratory Services. [facility]villeGlucose Body [id number] 21:18:37* Test Item Value Reference Range Interpretation Comme nts GLUCOSE BF (test code = 3115693611) 173 mg/dL UNSPUN BODY FLUID COLOR (test code = 5639841172) Yellow UNSPUN BODY FLUID CLARITY (test code = 7154101571) Clear SPUN BODY FLUID COLOR (test code = 3420605622) Yellow SPUN BODY FLUID CLARITY (test code = 5778622938) Clear Sediment (test code = 8517220923) The sediment volume is <0.01 mLs of the total fluid volume of 3 mls and its color is white and red. LINDA (test code = LINDA) Test developed and characteristics determined by [facility] Laboratory Services. [facility] StephenvilleAmylase Body [id number] 21:18:32* Test Item Value Reference Range Interpretation Comme nts AMYLASE BF (test code = 2279234988) 34 U/L UNSPUN BODY FLUID COLOR (test code = 3452372807) Yellow UNSPUN BODY FLUID CLARITY (test code = 5381436255) Clear SPUN BODY FLUID COLOR (test code = 5773535830) Yellow SPUN BODY FLUID CLARITY (test code = 0235381627) Clear Sediment (test code = 9245956249) The sediment volume is <0.01 mLs of the total fluid volume of 3 mls and its color is white and red. LNIDA (test code = LINDA) Test developed and characteristics determined by [facility] Laboratory Services. [facility]villeGlucose, Geetx1820-30-22 21:00:20* Test Item Value Reference Range Interpretation Comme nts GLUCOSE (test code = 4657775645) 140 mg/dL 70-110 H Lab Interpretation (test cod e = 41897-1) Abnormal [facility]villeProtein Total Ufhoe6714-25-05 21:00:20* Test Item Value Reference Range Interpretation Comme nts T PROTEIN (test code = 2483803269) 7.7 g/dL 6.3-8.2 Lab Interpretation (test cod e = 45466-0) Normal [facility]villeLAIAATE [id number] 20:57:37* Test Item Value Reference Range Interpretation Comme nts LDH (test code = 9664181362) 153 U/L 120-246 Lab Interpretation (test cod e = 38589-4) Normal [facility] GLUCOSE (AUTOMATED)2022-01-20 17:59:40* Test Item Value Reference Range Interpretation Comme nts POCT GLU (test code = 1932219132) 245 mg/dL 70-110 H Lab Interpretation (test cod e = 59110-8) Abnormal [facility] StephenvilleLIPID PANEL (17412)(TOTAL CHOLESTEROL, TRIGLYCERIDES, HDL)2022-01-20 15:55:13* Test Item Value Reference Range Interpretation Comme nts CHOL (test code = 7061346667) 130 mg/dL 120-200 HDL (test code = 8151436968) 33 mg/dL See_Comment L [Automated [employer]] The system which generated this result transmitted reference range: >=50. The reference range was not used to interpret this result as normal/abnormal. HDLC RATIO (test code = 2403041100) See_Comment [Automated [employer]] The system which generated this result transmitted reference range: <=4.5. The reference range was not used to interpret this result as normal/abnormal. TRIG (test code = 6852556317) 126 mg/dL 30-170 LDL CHOL (test code = 22783-0) 72 mg/dL See_Comment [Automated [employer]] The system which generated this result transmitted reference range: <=160. The reference range was not used to interpret this result as normal/abnormal. VLDL (test code = 7456542031) 25 mg/dL 5-60 Lab Interpretation (test code = 94082-5) Abnormal [facility] GLUCOSE (AUTOMATED)2022-01-20 15:18:39* Test Item Value Reference Range Interpretation Comme nts POCT GLU (test code = 8282491775) 158 mg/dL 70-110 H Lab Interpretation (test cod e = 86592-6) Abnormal [facility] GLUCOSE (AUTOMATED)2022-01-20 04:45:29* Test Item Value Reference Range Interpretation Comme nts POCT GLU (test code = 0770016056) 160 mg/dL 70-110 H Lab Interpretation (test cod e = 19500-0) Abnormal [facility] GLUCOSE (AUTOMATED)2022-01-20 02:02:31* Test Item Value Reference Range Interpretation Comme nts POCT GLU (test code = 5466275743) 162 mg/dL 70-110 H Lab Interpretation (test cod e = 40799-2) Abnormal [facility] GLUCOSE (AUTOMATED)2022-01-19 18:54:23* Test Item Value Reference Range Interpretation Comme nts POCT GLU (test code = 7698908842) 277 mg/dL 70-110 H Lab Interpretation (test cod e = 49050-5) Abnormal [facility] GLUCOSE (AUTOMATED)2022-01-19 15:16:34* Test Item Value Reference Range Interpretation Comme nts POCT GLU (test code = 9336149815) 231 mg/dL 70-110 H Lab Interpretation (test cod e = 42178-9) Abnormal [facility] GLUCOSE (AUTOMATED)2022-01-19 03:30:01* Test Item Value Reference Range Interpretation Comme nts POCT GLU (test code = 9863019154) 156 mg/dL 70-110 H Lab Interpretation (test cod e = 49826-8) Abnormal [facility] GLUCOSE (AUTOMATED)2022-01-18 23:41:52* Test Item Value Reference Range Interpretation Comme nts POCT GLU (test code = 3219091502) 108 mg/dL 70-110 Lab Interpretation (test cod e = 00015-7) Normal [facility] GLUCOSE (AUTOMATED)2022-01-18 18:21:22* Test Item Value Reference Range Interpretation Comme nts POCT GLU (test code = 0303481912) 267 mg/dL 70-110 H Lab Interpretation (test cod e = 96300-0) Abnormal [facility] StephenvilleCyto Pleural Mhjcf3416-31-63 16:30:18* Test Item Value Reference Range Interpretation Comme nts Case Report (test code = 7770972351) Non-Gynecologic Cytology ?Case: [id number] ?Authorizing Provider: ?Gumaro Huynh MD Collected: ? 01/12/2022 0953 ?Ordering Location: ? ? [facility] Received: ?01/13/2022 0941 ? (ERIN 11D) ?Specimen: ? ?PLEURAL, LEFT, EFFUSION ? Final Diagnosis (test code = 0699540383) u9yloVFpGRGmc7ngOGEqpD FuZzEwMzNcZnRuYmpcdWMx IHtccnRmMVxlcGljMTAxMD SjUB8cfKxbtKx4tXlaZLVf upS2nIToKMqcc4bvQEL2e7 ofjtwtCKYsADbvRg9bxQQb fYytXeNfSFCaRBk8pR31OJ VguO6wvCSmQRk2XSGnvCBl zxKpVnFyMJSocHIruOU4WS RgQD8dywbhPBewBWcwTVYa jcB7XUVboINhB4GjGXKzLW 0vrdgkNNQ0WLiyDWVjVVK6 ZyBcPWQpj2Oasme9QqTmoG FyZFxwbGFpblxmczIwXHBh clxiIEEuIFBMRVVSQSwgTE YCWBruJWoOAmVYLA8YYAQK UyBGTFVJRDpccGFyICAgIC IbBSDOBdEISZ5TSCLEV74s GD2HYFHTIMScopBnNIChSH 5rVcPHNZGGCuYbPp3GWH3V TElHTkFOVCBDRUxMUyAoU0 HBPQMOEH4RQbPnNKCqssov RWX7i6pdfIHvFYQocOWlTp NhCOAcWFSgk7fsBHAsqMSg ZzEwMzNcZnRuYmpcdWMxXG MwHeHbc3sor836oPZka2yg JGDnJwM1bWTxHZPeuDorcv g9bWtrCjLvKZFqb0fyepYr ZmNoYXJzZXQwIEFyaWFsO3 90LVHmQDtpo2abh3CkSNMm sBQsq8N3ZFTJUZoaRfAuI4 42r1dhh0nrftLcsAQ7YAZa MBG7FIzouhIacpF3KEjklG TnQkA7DSkovdEbEAfyzxBu kcSwWhg5WTAnZ841TRH2lR rvd6ejKUV7DTLcYIBcQnmj Ks6hrBRbO860VYAdKAJJRA GnsJd0XIHizdZnpqViuJNL i297D927z4bnSEXyvsVtdG qLrqsoi9bdT590UYPchBCx erMrHlKpIMYmsSXnySA9TB NuDC0uhijiWGdlJOpxPJAc diA4XXBslSLsT4BkATUpXO 4nqexoUNM5OGqfLFUgGOA2 HrQfLCVtp4Yeueh0RqCitf 7fko56DJX7v0RhfWiiPGP9 PSK3EoJkGy5acJFpXGBhTO 5zEvKwtHXlSCNmqs50rYde EIrjfgEphH4aNjDiQQHklO JuNTNoEW0vrRErFCJehZ9f cmxjXHBnYnJkcmhlYWRccG vhucNkRd8taYvbWAO5OBzd U0xrbZ5vJxU0KPqwQ6yxcF 8jNDe1HHyvsBD6AAPlkV0j UU0cbgocg0ovZGbvGLdeMB IyxaH5xiD9XQMuhUHeD5Hh qI5iXQZkGT5ussjii8ubSR Y3SPccPSTyCNJ0ZnPhKFFu s2Avfmw2CyTro3DjrWTnZF bkN86sh947DFYifxLzI8dk bGFpblxwbGFpblxmMFxmcz U2EWOzSMIhAAspXJNaZVLr MjBcbGFuZzEwMzNcaGljaF mmFIrbWzOcJCJbWYdnC1nf BiVlF5TzNAHgWwDlnOIyDW vhgOE7JUDaEJFub00kvYq7 IYKkxavku8QtRYXtwCGunL NjmJ0sgkIuk3nsZMLuKYSj FPHkZ9BiEVS1nGDtQKPxcT PkwEU4WD7dfzOuKV5zCCEj YnkgcmVzaWRlbnRzLCBmZW vhi5bxTG5oDCUceBibeT0c eCD6RTWlw8ocjVVkrQCly3 lnh6TnkwOqSSofLTNhEDup QFSlXVHfRJ1bCGHxnWFgob Rbq1Z3WgjoeKZddleqBurn wwM1YBjuyysnLADsLKiyA5 apDeBhNWBucLchUtfrp0Lr XGYyXGZzMjhccGFyfX0= Final Diagnosis Comment (test code = 5328109591) j8lqtLCdVSJtmJKwIHJlHQ qjiaDqEJQgoJSfX4Mcoikv FIgzJL4nAT2pjImvvRIigP CxCCIrJgGby9lfv012zGEh s8erITRIrwzxvQh4oEhwG5 7ek4D5GglzG87qyCLkELB2 BGGzOWYlwCOgJVHsUQG5BE ZdpTRsH7vlGHQkSA8zbxmy WVjcEQooVODnrRJ0RASpuC GyO7RcBGInQFpsBKXfkxu5 HaSsDc5nvBTksUzcOMqdMU JkXHBsYWluXGZzMjAgVGhl OYMnXAPqdbAemaUlV3FszL Qgt9SiDSRje2eevBf0PXDf cQ1kvBKklES4bF2fYBzfS0 p6KGwcZpUykK2ffA2rfBPp cyBhbmQgbnVtZXJvdXMgbm C2yCMkdBxgiLQhj9f9uHDx AIKzaQt2DSUyGAKtdNasbS lhbCBjZWxscyBhbmQgaGlz fMazC8w6WACbDG1fD4F7cT NiKKQgjnOjFYsvN91jpaLu K2MbyRUwOWGcgzusXGGoCR mmKNFctMjik2zoJjHxkR86 wh0cdTYoarGrm1KgFRZlEA Twh2EbTUZhq78acWwdMVTz cKarZdbhU0xaEISdw6EiTJ GnUNH1zAKeAONaKYUgj1gf k0xuitjkvrPixVy5kwduzV UoRCEySUWKKZNZARN0QWLb YhVUKEbzrYj6MNrdXNQnUU UcYMFgEIMmsH36JfLnyOEn RA2kH9Q7tJJqSRAjegAoXW 1iR4MwiyW0sB6ibymyzPDl NCmrQ0iisBbnxBGaiVMbg4 WuBQklALfgX4ShkHAvVWTb clxwYXJkXHBhciBUaGVzZS AjKGD6kONfQJX7kYHwnkPw pKnzKBEqi0ZyGBOhQAhzd9 Uara5xpIUvKSTsrs7= Clinical Information (test code = 9198044948) Clinical Hx: 76 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 Gross Description (test code = 1909414703) i2jreKGbQKYgtSRiQUCtBT xlysUhQACbnURyE7Xuimcr TItkIJ9cDC7ngQtjfIVuuJ PkYXQaUoLuq8qcs260bMGg o7vzPFYOjjpatIo6nCcyV3 4tu2H8MnozT9tnFDZhZQhp GTGwLYezpIVgKLh7QNVerP VydzEyMjQwXHBhcGVyaDE1 KEFgMG0zjpsgQTnvBDdkFR NubuL3UMDbgDGyB3MeTSTe MV5sysvfRTS1CUuoMYHwOH B5UiGkKHHim9Kbyrt1MzD4 SMjdYOQsL8IkS4WbVLuzXI Y4FKEoUOPvGN0bOHqtwOJe BSesRcolASoiW494EJxhIB GpT9BxN6QnKYezXWX4CNCh UtThYMRnUD2JZkAaQKPiTm T8SulhYAn0LAj5FX5VYoPe RDPeQDL4LuO2LdJeZMr1GW flAZ2PCUB7MpWdLnS3RWQq AXOsYUkbUJe4CCJvTDiduN BcXGYgQXJpYWwgXFxmcyAx ZHUkRG4dcJvgLHKrWSXvCE luXGZzMjBccGFyXGZzMjJc cGFyIEExLiAgUExFVVJBLC GEGMKVEiNYED9UMHMHKoJM W8pUGAUEBYjLTWGxutTEIJ NlaXZlZCBmcmVzaCBpcyA2 VGYaQ5BikhSaXmI0FHlqg1 taDkb3hZOyCQvnHPDrREJq cGFyZWQgMyBzbGlkZXMgKD MmXQJzQJ8iS12sPY98OXD6 jE8paXpaBWEzDAKhmPWwz7 tct9zvA8i6b0XsvT9aOI6s IDEgVGhpbnByZXAgcHJlcG JuEQSul59fKUJitbzaBFFz ZnMyMFxjZjEgQTIuICBcZn MyMlxjZjAgUExFVVJBLCBM HHBANgJEHY1HYYSASeHGF3 sXNOMFTQtSZSNmIbQcE2Uu TNrzY3DIYWNRQU8IT2rlJX HmUzYtlYR7WDbcVih8nDQq t2WjqK4bgrExzVteR1OkXG udCVHltk2pfXvfRS9hRYCt LzEwLzIwMjIgMTYwMCBob3 KwhvcyBB5sLRKyVIZimV6h KCnikO1rADauiEh2JKHdOM t4ZRxnQM3oTHU4Ur4qkAQl UFSqu5AuE7DjbUDgfR8wb2 xwYXIgUHJlcGFyZWQgNSBz bGlkZXMgKDIgSCZFIGFuZC XwEOtzgVSwb0K2ZPrhIJDy IChDYWxyZXRpbmluLCBDbG G1RZxdSHrpViNsGFG4NIpv aZStOQSwvbJSh6ZttXA7VN ufw8ibPIVtMGWjjeemxuPl LWHxHOmkXNS6ILMdaQHsHV T6KJ9maMskHARdF8OyV8Rq juV5TTSvcf0= Disclaimer (test code = 2554245639) v2ovhGBvVRTdv1mcTOVzvF FuZzEwMzNcZnRuYmpcdWMx VMeicySbNKpha9SbY3PtEz AwMFxhbnNpXGRlZmxhbmcx RNEiMPJ3icQuEAZxHPgxIS DaCJwfIg3wwCSqbJwtHhRi ASPfe6tapeEDOHooZoVbH8 62OTKaKZztn1cei4QwPSYt xXPiu1N0ORAMsopbyBv6wO qyA66bu3J1EmfvV4wyHXTa PAUfY2PkTF9xUAXmLoq9TO F5TER5VDDqWNYrJ4YyAM9i XJEcqUChWOg5u4dtvBciYN WdILD2s1hfGFqlbbCoAI4j oi8toFh7j4pwapFtBQUjLY NftRXMLPOsX5CfgItrHx7e cFw3fEtpAsyrZCG9Gbw3UM 6zpb24vds3wCxqVOIaujwn KqJ7ZYkkHVLfidkeJXr1ME pzUJXxpOR6LGNalXGiU6Pw PKRsDC8joov7DWK3SIqyMS GzBfG7RIAxhJUhYOFtdUkp KDjxa825HDN2MeFlIS2zE9 Vsu2A9tM7llVGpIGScwLHk CwJdFCXmfb6izNZwJCggs3 ZiNOS6tpW7mJMcqPLrYVZk DF94Vgrzk5PwTzpzy8CwS9 2jdIL1DZomq9ofIW9qMsE5 knIkWPyam2pmsK3pHuI4PX ccVG3qUK2gBLDxsX9wlhdj XHBnYnJkcmhlYWRccGdicm GfId6yfDpgFJA4ISgiE9og iW5nRlM8GNrvP4ukmA4tZC p8XVmzwME6PFQdqF2hRI3a detzt4qjPJimWVmjWQEdjj N9rcN9BOUikMBlJ0QvaP1o JRWaMU2jxxpwn0fjQBS0TZ grUJVkNQU3GnAgNJArc2Fr ipp3MfDha9GlnSFrNPolB8 8re444ZVSfknUhE2ggaYXq zszkuTSxsgybYTzemaR0KE SytcHhl7SrUBGmSSZ6ANgn AUhupCZnCGFrhZkfn2ycW8 RscGFyXHBsYWluXGYxXGZz MjBcbGFuZzEwMzNcaGljaF lrBBezRlWiMMTnAFeaL3zg VfTqV4WyDPBcRaMkhDFbF4 ggVGhpcyByZXBvcnQgbWF5 OJooU1o8EWOxpxEwcJp9pl OcJwFrYBSxRBP2UEztcNYr LFMtn0YmgoylqDKgLc1zpQ GaQIIesR6vSXAyEIPdUUka WL0coQl5TGHKgSKflYPdIj DHKSCgHF07doLkJWCOhagi w2X1YQnfUQIqq5EhzQAuC7 olz4MbJIByi88fKS1kb4N5 g0hpWNK8YR1oy1ZzSGCseJ WqcFWvLBTcq7Edofonf8Hy GHZnblVzv8JpDPKtnsUmnT OxPXZcrbXlxy6exuDiIXZi LNKeV1NgywgkqTpffiFlSI Mnds9irjRyZBS6XEGRMCFc FLRxe3QycF9iuIMACAN0oV Rmfn1pvpCXjYKxAFCqfl67 UDFgSS0sY0pmXIYfZRAnwt EqfQHcu7FkMUFpmHT6zUZo NI3RAqVJp21rKBUaTFUKko BfPVCveRfmlBJ7pbU0pT2s IChGREEpLlx+IFRoZSBGRE IhSI4fxaIdk5HxswHikZpz RGOajGNdc7XphPCjc2NvmS vkr5DopXSxzEYpHM7gHAJd clxwYXIgVVRNQiBMYWJvcm W8a9GpJYCsMNKjOWK1gEgt epv0HLQarQ9zWLQwQ5qovu ucRMgkSHHll4AzqT7ecNYA fKQsh6DidPAewFIGrPCgWM 7jufUgRUqQFIgGHKK1jqEo RZLmy9FyQPtnI3dxO99skV graLp9lXX8TAY8zS5hGhq+ IFxwYXJccGFyIEFwcHJvcH UzMUCblHfrjaIaL5FllgUt aB4gbYWbxiWmBH3yMH0fK5 F5mTCbPEDhtwHob6wdQNro dmUgYmVlbiByZXZpZXdlZC Fsa9NdBRszWVN3EPyiwoQc bmNsdWRpbmcgSCZFLCBTcG LolHUnRVU3DMgzwhReflGo KY0zmA5jeVvskL9myNMwcW W0dpbtEAGwAZMswRjsZYSn FW1akFIeFADzqzYZxMyheR XysL2mI2EcUNNcJWQcgm5e IYQtbJ4aHAjmn1IkoncyXN TmBTGvWSCfdvDgja8wXIOv mQTRYP1OXOxiyWAum0Cruj ShJ4eMSCR1EPXwIoEzQfbq GEZpnKKppLLwIKMrnq23AO AkxI1shVhxQSMzdN4aaE1y vZgpeR8uTuMaVrGbAGqkCA 7lPULfT7farLVnFHOvEKGt P2bhEuNksH0cqTpkHUegBb PqBcIrWRfuEOV3vJ== Embedded Images (test code = 2808548823) [facility] GLUCOSE (AUTOMATED)2022-01-18 14:14:04* Test Item Value Reference Range Interpretation Comme nts POCT GLU (test code = 9261321745) 194 mg/dL 70-110 H Lab Interpretation (test cod e = 25158-4) Abnormal [facility] GLUCOSE (AUTOMATED)2022-01-18 05:48:51* Test Item Value Reference Range Interpretation Comme nts POCT GLU (test code = 6721704613) 148 mg/dL 70-110 H Lab Interpretation (test cod e = 15873-7) Abnormal [facility] GLUCOSE (AUTOMATED)2022-01-17 22:58:26* Test Item Value Reference Range Interpretation Comme nts POCT GLU (test code = 3982105989) 218 mg/dL 70-110 H Lab Interpretation (test cod e = 13937-2) Abnormal [facility] GLUCOSE (AUTOMATED)2022-01-17 18:52:49* Test Item Value Reference Range Interpretation Comme nts POCT GLU (test code = 6516219681) 339 mg/dL 70-110 H Lab Interpretation (test cod e = 65641-6) Abnormal [facility] GLUCOSE (AUTOMATED)2022-01-17 15:02:05* Test Item Value Reference Range Interpretation Comme nts POCT GLU (test code = 7962260443) 236 mg/dL 70-110 H Lab Interpretation (test cod e = 90153-8) Abnormal [facility] GLUCOSE (AUTOMATED)2022-01-17 04:15:53* Test Item Value Reference Range Interpretation Comme nts POCT GLU (test code = 9003780194) 166 mg/dL 70-110 H Lab Interpretation (test cod e = 15202-4) Abnormal [facility] GLUCOSE (AUTOMATED)2022-01-16 22:22:05* Test Item Value Reference Range Interpretation Comme nts POCT GLU (test code = 2208324444) 165 mg/dL 70-110 H Lab Interpretation (test cod e = 68769-6) Abnormal [facility] GLUCOSE (AUTOMATED)2022-01-16 17:47:41* Test Item Value Reference Range Interpretation Comme nts POCT GLU (test code = 2653018596) 266 mg/dL 70-110 H Lab Interpretation (test cod e = 50368-4) Abnormal [facility] CULTURE [id number] 16:01:50* Test Item Value Reference Range Interpretation Comme nts Blood Culture-Anaerobic (test code = 42219-5) No organisms isolated No growth Previous preliminary verified result was Culture In Progress on 01/11/2022 at 1301 CSTPrevious preliminary verified result was No growth at 24 hours on 01/12/2022 at 1001 CSTPrevious preliminary verified result was No growth at 48 hours on 01/13/2022 at 1001 CSTPrevious preliminary verified result was No growth at 72 hours on 01/14/2022 at 1001 [employer] Lab Interpretation (test code = 32299-3) Normal [facility] CULTURE [id number] 15:01:48* Test Item Value Reference Range Interpretation Comme nts Blood Culture-Aerobic (test code = 65980-1) No organisms isolated No growth Previous preliminary verified result was Culture In Progress on 01/11/2022 at 1201 CSTPrevious preliminary verified result was No growth at 24 hours on 01/12/2022 at 0901 CSTPrevious preliminary verified result was No growth at 48 hours on 01/13/2022 at 0901 CSTPrevious preliminary verified result was No growth at 72 hours on 01/14/2022 at 0901 [employer] Blood Culture-Anaerobic (test code = 89961-5) No organisms isolated No growth Previous preliminary verified result was Culture In Progress on 01/11/2022 at 1201 CSTPrevious preliminary verified result was No growth at 24 hours on 01/12/2022 at 0901 CSTPrevious preliminary verified result was No growth at 48 hours on 01/13/2022 at 0901 CSTPrevious preliminary verified result was No growth at 72 hours on 01/14/2022 at 0901 [employer] Lab Interpretation (test code = 55859-6) Normal [facility] GLUCOSE (AUTOMATED)2022-01-16 14:04:55* Test Item Value Reference Range Interpretation Comme nts POCT GLU (test code = 7064344234) 154 mg/dL 70-110 H Lab Interpretation (test cod e = 19029-3) Abnormal [facility] GLUCOSE (AUTOMATED)2022-01-16 10:57:10* Test Item Value Reference Range Interpretation Comme nts POCT GLU (test code = 7648756219) 193 mg/dL 70-110 H Lab Interpretation (test cod e = 06830-9) Abnormal [facility] GLUCOSE (AUTOMATED)2022-01-16 07:18:32* Test Item Value Reference Range Interpretation Comme nts POCT GLU (test code = 7494163702) 211 mg/dL 70-110 H Lab Interpretation (test cod e = 77545-9) Abnormal [facility] GLUCOSE (AUTOMATED)2022-01-16 04:32:29* Test Item Value Reference Range Interpretation Comme nts POCT GLU (test code = 9508177160) 243 mg/dL 70-110 H Lab Interpretation (test cod e = 41573-6) Abnormal [facility] GLUCOSE (AUTOMATED)2022-01-15 23:22:29* Test Item Value Reference Range Interpretation Comme nts POCT GLU (test code = 3751329109) 414 mg/dL 70-110 H Lab Interpretation (test cod e = 98827-7) Abnormal [facility] GLUCOSE (AUTOMATED)2022-01-15 23:17:18* Test Item Value Reference Range Interpretation Comme nts POCT GLU (test code = 3667419769) 405 mg/dL 70-110 H Lab Interpretation (test cod e = 02887-6) Abnormal [facility] GLUCOSE (AUTOMATED)2022-01-15 18:14:33* Test Item Value Reference Range Interpretation Comme nts POCT GLU (test code = 0586754127) 270 mg/dL 70-110 H Lab Interpretation (test cod e = 18374-3) Abnormal [facility] GLUCOSE (AUTOMATED)2022-01-15 16:04:19* Test Item Value Reference Range Interpretation Comme nts POCT GLU (test code = 3213390800) 236 mg/dL 70-110 H Lab Interpretation (test cod e = 25258-5) Abnormal [facility] GLUCOSE (AUTOMATED)2022-01-15 14:12:31* Test Item Value Reference Range Interpretation Comme nts POCT GLU (test code = 3526618646) 214 mg/dL 70-110 H Lab Interpretation (test cod e = 12434-3) Abnormal [facility] GLUCOSE (AUTOMATED)2022-01-15 10:13:59* Test Item Value Reference Range Interpretation Comme nts POCT GLU (test code = 5297667130) 250 mg/dL 70-110 H Lab Interpretation (test cod e = 22556-7) Abnormal [facility] GLUCOSE (AUTOMATED)2022-01-15 06:24:45* Test Item Value Reference Range Interpretation Comme nts POCT GLU (test code = 9544672293) 259 mg/dL 70-110 H Lab Interpretation (test cod e = 74124-9) Abnormal [facility] GLUCOSE (AUTOMATED)2022-01-15 02:11:36* Test Item Value Reference Range Interpretation Comme nts POCT GLU (test code = 9571840892) 294 mg/dL 70-110 H Lab Interpretation (test cod e = 81133-5) Abnormal [facility] GLUCOSE (AUTOMATED)2022-01-14 23:05:34* Test Item Value Reference Range Interpretation Comme nts POCT GLU (test code = 9257590219) 251 mg/dL 70-110 H Lab Interpretation (test cod e = 83354-5) [facility] 21:51:08* Test Item Value Reference Range Interpretation Comme nts POCT GLU (test code = 1309203155) 218 mg/dL 70-110 H Lab Interpretation (test cod e = 91461-9) [facility] 17:48:51* Test Item Value Reference Range Interpretation Comme nts POCT GLU (test code = 6386575205) 329 mg/dL 70-110 H Lab Interpretation (test cod e = 28097-1) Abnormal [facility] GLUCOSE (AUTOMATED)2022-01-14 14:18:46* Test Item Value Reference Range Interpretation Comme nts POCT GLU (test code = 9447963211) 285 mg/dL 70-110 H Lab Interpretation (test cod e = 99797-4) Abnormal [facility] GLUCOSE (AUTOMATED)2022-01-14 11:57:49* Test Item Value Reference Range Interpretation Comme nts POCT GLU (test code = 2650315806) 317 mg/dL 70-110 H Lab Interpretation (test cod e = 36953-3) Abnormal [facility] GLUCOSE (AUTOMATED)2022-01-14 10:52:40* Test Item Value Reference Range Interpretation Comme nts POCT GLU (test code = 9617619850) 344 mg/dL 70-110 H Lab Interpretation (test cod e = 99919-9) Abnormal [facility] GLUCOSE (AUTOMATED)2022-01-14 06:31:53* Test Item Value Reference Range Interpretation Comme nts POCT GLU (test code = 9707367553) 297 mg/dL 70-110 H Lab Interpretation (test cod e = 89241-1) Abnormal [facility] GLUCOSE (AUTOMATED)2022-01-14 03:08:13* Test Item Value Reference Range Interpretation Comme nts POCT GLU (test code = 9184533998) 404 mg/dL 70-110 H Lab Interpretation (test cod e = 54367-6) Abnormal [facility] GLUCOSE (AUTOMATED)2022-01-13 23:15:36* Test Item Value Reference Range Interpretation Comme nts POCT GLU (test code = 8295503955) 358 mg/dL 70-110 H Lab Interpretation (test cod e = 95261-6) Abnormal [facility] GLUCOSE (AUTOMATED)2022-01-13 21:35:24* Test Item Value Reference Range Interpretation Comme nts POCT GLU (test code = 9856750386) 366 mg/dL 70-110 H Lab Interpretation (test cod e = 85659-9) Abnormal [facility] GLUCOSE (AUTOMATED)2022-01-13 19:38:51* Test Item Value Reference Range Interpretation Comme nts POCT GLU (test code = 4647333207) 484 mg/dL 70-110 HH Lab Interpretation (test cod e = 96984-5) Abnormal [facility] GLUCOSE (AUTOMATED)2022-01-13 18:06:05* Test Item Value Reference Range Interpretation Comme nts POCT GLU (test code = 0963734678) 467 mg/dL 70-110 HH Lab Interpretation (test cod e = 55766-6) Abnormal [facility] GLUCOSE (AUTOMATED)2022-01-13 15:40:25* Test Item Value Reference Range Interpretation Comme nts POCT GLU (test code = 0992103772) 323 mg/dL 70-110 H Lab Interpretation (test cod e = 60962-8) Abnormal [facility] GLUCOSE (AUTOMATED)2022-01-13 04:00:12* Test Item Value Reference Range Interpretation Comme nts POCT GLU (test code = 8642476339) 256 mg/dL 70-110 H Lab Interpretation (test cod e = 80068-7) [facility]normal [facility] 21:31:59* Test Item Value Reference Range Interpretation Comme nts Height (test code = 2064878339) in Weight (test code = 2008680259) lbs Systolic BP (test code = 4036836305) mmHg Diastolic BP (test code = 8516999159) mmHg Heart Rate (test code = 7856176793) bpm BSA (test code = 9925328175) 1.83 m2 TASV (test code = 8215998466) 8.4 cm/s LVIDD (test code = 3220652184) 4.80 cm Left Ventricular End Diastolic Volume by Teichholz Method (test code = 4598946) 110.1 mL IVS (test code = 5290166112) 0.96 cm Interventricular Septum Diastolic Thickness by 2D (test code = 1544913) 0.96 cm LVPWD (test code = 9748408608) 0.96 cm PW (test code = 8663741459) 0.96 cm 0.6-1.1 EF(Teich) (test code = 8778923594) 73.90 % LVIDS (test code = 7399267831) 2.80 cm Left Ventricular End Systolic Volume by Teichholz Method (test code = 6257459) 28.7 mL FS (test code = 9399198861) 43 % EF - 2D (test code = 20476900) 73.90 % LVOT diameter (test code = 1819176582) 1.87 cm LVOT area (test code = 1640867225) 2.70 cm2 Ao root diam (test code = 7190060736) 2.60 cm Aortic root (test code = 3622224011) 2.6 cm Ao root annulus (test code = 2986869267) 2.6 cm LA size (test code = 5813012433) 3.9 cm LAV(MOD-sp4) (test code = 1716709080) 45.10 mL MV Peak A Carri (test code = 3873463791) 101.4 cm/s E wave decelartion time (test code = 3565851957) 0.17 s MV Peak E Carri (test code = 6003506100) 120.9 cm/s E/A ratio (test code = 0289991571) ratio LVOT stroke volume (test code = 5365955161) 58.50 cm3 LVOT peak carri (test code = 4346184325) 96.9 cm/s LVOT mn grad (test code = 3712962686) mmHg AV LVOT peak gradient (test code = 6795599467) mmHg LVOT peak VTI (test code = 1723471792) 21.4 cm LV V1 mean (test code = 8806512283) 60.40 cm/s Aortic valve mean velocity (test code = 7937740860) 90.5 cm/s Ao peak carri (test code = 7841635104) 148.0 cm/s Ao VTI (test code = 9429451459) 23.7 cm AV area by cont VTI (test code = 3822756128) 2.5 cm2 AV area peak carri (test code = 1928266390) 1.8 cm2 Ao max PG (test code = 8859824270) 8.80 mm[Hg] AV peak gradient (test code = 6748579615) mmHg AV valve area (test code = 5027288302) 2.47 cm2 AV mean gradient (test code = 4893107043) mmHg Tapse (test code = 8170279581) 1.93 cm LA Volume Index (BP) (test code = 6104229374) 28.5 mL/m2 LA volume (BP) (test code = 2485830761) 52.1 mL LAV(MOD-sp2) (test code = 9039494089) 60.20 mL A4C EF (test code = 7198774430) 54.80 % EF(sp4-el) (test code = 2536782530) 57.90 % SV(MOD-sp4) (test code = 9508172505) 35.60 mL SV(sp4-el) (test code = 7485785143) 39.30 mL LV Diastolic Volume (BP) (test code = 4548220474) 90.7 mL A2C EF (test code = 8568066182) 68.30 % EF(MOD-bp) (test code = 2794280070) 64.00 % EF(sp2-el) (test code = 7774362726) 68.70 % LV Systolic Volume (BP) (test code = 2201601502) 32.7 mL SV(MOD-bp) (test code = 7303942710) 58.10 mL SV(MOD-sp2) (test code = 2813605933) 76.40 mL EF (test code = 1357467780) Left Ventricular Stroke Volume by 2-D Biplane-MOD (test code = 0770567) 58.1 mL LV Diastolic Volume Index (BP) (test code = 8152687759) 49.6 mL/m2 LV Systolic Volume Index (BP) (test code = 6185426800) 17.9 mL/m2 Radiology Study observation (narrative) (test code = 44291-6) LINDA (test code = LINDA) ?Left?Ventricle: Left ventricle size is normal. There is concentric remodeling. Normal wall motion. Normal systolic function with a visually estimated EF of 60 - 65%. EF by 2D Cerna biplane is 64%. Diastolic dysfunction. ?Right?Ventricle: Right ventricle size is normal. Normal systolic function. ?Left?Atrium: Left atrium size is normal. Left atrium volume index is 28.5 mL/m2. ?Tricuspid?Valve: Insufficient tricuspid regurgitation jet to estimate RVSP.Trace transvalvular regurgitation. RA pressure is 0-5 mmHg. ?Pericardium: Small pericardial effusion present. No indication of cardiac tamponade. Left pleural effusion. Vasquez Fermin MD Left VentricleLeft ventricle size is normal. There is concentric remodeling. Normal wall motion. Normal systolic function with a visually estimated EF of 60 - 65%. EF by 2D Cerna biplane is 64%. Diastolic dysfunction.Right VentricleRight ventricle size is normal. Normal systolic function.Left AtriumLeft atrium size is normal. Left atrium volume index is 28.5 mL/m2.Right AtriumRight atrium size is normal.IVC/SVCIVC diameter is less than or equal to 21 mm and decreases greater than 50% during inspiration; therefore the estimated right atrial pressure is normal (~0-5 mmHg).Mitral ValveMild mitral annular calcification. No transvalvular regurgitation. No stenosis.Tricuspid ValveTricuspid valve structure is normal. Insufficient tricuspid regurgitation jet to estimate RVSP.Trace transvalvular regurgitation. RA pressure is 0-5 mmHg.Aortic ValveModerately thickened cusps. Mildly calcified cusps. No transvalvular regurgitation. No hemodynamically significant .Pulmonic ValveNot well visualized. Trace transvalvular regurgitation.Ascendin g AortaNormal sized annulus.PericardiumSma ll pericardial effusion present. No indication of cardiac tamponade. Left pleural effusion.Study DetailsStudy quality was adequate. A complete echocardiogram was performed using 2D, color flow Doppler and spectral Doppler. 5 mL of Lumason ultrasound enhancing agent used. [facility]2022-[facility]-12 19:05:43* Test Item Value Reference Range Interpretation Comme [facility] POCT GLU (test code = 5574652910) 123 mg/dL 70-110 H Lab Interpretation (test cod e = 19719-4) Abnormal [facility]villeB[facility] FLUID MANUAL [id number] 18:07:37* Test Item Value Reference Range Interpretation Comme nts BF SEGS% (test code = 23700-2) 45 % BF LYMPHS% (test code = 34034-6) 28 % BF MACROPHAGE% (test code = 94636-7) 26 % BF MESOS% (test code = 02737-6) 1 % BF #CELLS CNTD (test code = 6595268125) cells/uL LINDA (test code = LINDA) Leukophages observed Atypical cells seen. Correlate with Cytology results if available. If not, recommend ordering Cytology testing. Favor reactive. Reviewed by Khang Bruno M.D., Director of HEMATOPATHOLOGY. [facility]villeLD TOTAL BODY [id number] 17:21:47* Test Item Value Reference Range Interpretation Comme nts LDH BF (test code = 6170872597) 193 U/L UNSPUN BODY FLUID COLOR (test code = 7836753527) Yellow UNSPUN BODY FLUID CLARITY (test code = 0578922940) Turbid SPUN BODY FLUID COLOR (test code = 1418945005) Yellow SPUN BODY FLUID CLARITY (test code = 0616909674) Clear Sediment (test code = 9804258533) The sediment volume is <0.01 mLs of the total fluid volume of 4 mLs and its color is red. LINDA (test code = LINDA) Test developed and characteristics determined by [facility] Services. [facility] StephenvilleTotal Protein Body [id number] 17:21:42* Test Item Value Reference Range Interpretation Comme nts T.PROT BF (test code = 3285056465) 4700.0 mg/dL UNSPUN BODY FLUID COLOR (test code = 8358533302) Yellow UNSPUN BODY FLUID CLARITY (test code = 3476372119) Turbid SPUN BODY FLUID COLOR (test code = 4359164482) Yellow SPUN BODY FLUID CLARITY (test code = 1161381624) Clear Sediment (test code = 3977137741) The sediment volume is <0.01 mLs of the total fluid volume of 4 mLs and its color is red. LINDA (test code = LINDA) Test developed and characteristics determined by [facility] Laboratory Services. [facility] StephenvilleGlucose Body [id number] 17:21:41* Test Item Value Reference Range Interpretation Comme nts GLUCOSE BF (test code = 8991262950) 106 mg/dL UNSPUN BODY FLUID COLOR (test code = 6845620604) Yellow UNSPUN BODY FLUID CLARITY (test code = 5446217751) Turbid SPUN BODY FLUID COLOR (test code = 2442130131) Yellow SPUN BODY FLUID CLARITY (test code = 3670761538) Clear Sediment (test code = 7191189191) The sediment volume is <0.01 mLs of the total fluid volume of 4 mLs and its color is red. LINDA (test code = LINDA) Test developed and characteristics determined by [facility] Services. [facility]villeBODY FLUID DIRECT [id number] 16:10:23* Test Item Value Reference Range Interpretation Comme nts BF COLOR (test code = 3489610638) Light Yellow BF WBC Count (test code = 4281247222) See_Comment [Automated [employer] ge] The system which generated this result transmitted reference range: /?L. The reference range was not used to interpret this result as normal/abnormal. BF RBC Count (test code = 9153390400) See_Comment [Automated messa ge] The system which generated this result transmitted reference range: /?L. The reference range was not used to interpret this result as normal/abnormal. LINDA (test code = LINDA) The reference range and other method performance specifications have not been established for this body fluid. ?The test results must be integrated into the clinical context for interpretation. [facility]villeMAGNESIUM2022-11-09 08:32:10* Test Item Value Reference Range Interpretation Comme nts MAGNESIUM (test code = 6224572783) 2.5 mg/dL 1.7-2.4 H Lab Interpretation (test cod e = 25311-7) Abnormal [facility] StephenvilleGlycosylated Hemoglobin (A1C)2022-01-12 06:59:39* Test Item Value Reference Range Interpretation Comme nts HGB A1C (test code = 4548-4) 7.6 % 4.0-5.7 H LINDA (test code = LINDA) Reference RangesNormal: <5.7%Prediabetes: 5.7 - 6.4%Diabetes: > 6.5% Lab Interpretation (test code = 88739-0) Abnormal [facility]villeTROPONIN [id number] 01:56:53* Test Item Value Reference Range Interpretation Comments TROPONIN I (test code = 5226433559) 0.006 ng/mL See_Comment [Automated message] The system which generated this result transmitted reference range: <=0.034. The reference range was not used to interpret this result as normal/abnormal. LINDA (test code = LINDA) Reference (Normal) Range (defined by the 99th percentile reference limit): <= 0.034 ng/mL Note: Cardiac troponin begins to rise 3-4 hours after the onset of ischemia. Repeat in 4-6 hours if the sample was drawn within 3-4 hours of the onset of the symptom and found normal. Diagnosis of myocardial injury is made with acute changes in cTn concentrations with at least one serial sample above the 99th percentile upper reference limit (URL), taken together with the patient's clinical presentation. Biotin has been reported to cause a negative bias, interpret results relative to patient's use of biotin. Lab Interpretation (test code = 06993-7) Normal [facility]villeN-TERMINAL [id number] 01:53:35* Test Item Value Reference Range Interpretation Comme nts NT-proBNP (test code = 4168049738) 4370 pg/mL See_Comment H [Automated message] The system which generated this result transmitted reference range: <=450. The reference range was not used to interpret this result as normal/abnormal. LINDA (test code = LINDA) Biotin has been reported to cause a negative bias, interpret results relative to patient's use of biotin. Lab Interpretation (test code = 25304-9) Abnormal [facility]villeCOMP. METABOLIC PANEL (79319)2022-01-12 01:46:13* Test Item Value Reference Range Interpretation Comme nts NA (test code = 8198142371) 133 mmol/L 135-145 L K (test code = 8084885688) 5.0 mmol/L 3.5-5.0 CL (test code = 8000584575) 97 mmol/L 98-108 L CO2 TOTAL (test code = 2923652924) 31 mmol/L 23-31 AGAP (test code = 2373252421) 2-16 BUN (test code = 5506091607) 60 mg/dL 7-23 H GLUCOSE (test code = 7988750130) 105 mg/dL 70-110 CREATININE (test code = 9640132325) 2.37 mg/dL 0.50-1.04 H TOTAL BILI (test code = 3788121720) 0.4 mg/dL 0.1-1.1 CALCIUM (test code = 8947393165) 8.2 mg/dL 8.6-10.6 L T PROTEIN (test code = 6294788939) 6.1 g/dL 6.3-8.2 L ALBUMIN (test code = 6484682540) 3.1 g/dL 3.5-5.0 L ALK PHOS (test code = 0953843644) 116 U/L 34-122 ALTv (test code = 1742-6) 27 U/L 5-35 AST(SGOT) (test code = 6620532513) 25 U/L 13-40 eGFR (test code = 7651608846) mL/min/1.73m2 LINDA (test code = LINDA) Association of Glomerular Filtration Rate (GFR) and Staging of Kidney Disease* + --+ --+ ------+| GFR (mL/min/1.73 m2) ?| With Kidney Damage ?| ?Without Kidney Damage+ --------+ --------+ +| ?>90 ?| ?Stage one ?| ? Normal ?+ ---+ ---+ -------+| ?60-89 ?| ?Stage two ?| ? Decreased GFR ? + --+ --+ ------+| ?30-59 ?| ?Stage three ?| ? Stage three ? + --+ --+ ------+| ?15-29 ?| ?Stage four ? | ? Stage four ?+ ---+ ---+ -------+| ?<15 (or dialysis) ? ?| ?Stage five ? | ? Stage five ?+ ---+ ---+ -------+ *Each stage assumes the associated GFR level has been in effect for at least three months. ?Stages 1 to 5, with or without kidney disease, indicate chronic kidney disease. Notes: Determination of stages one and two (with eGFR >59mL/min/1.73 m2) requires estimation of kidney damage for at least three months as defined by structural or functional abnormalities of the kidney, manifested by either:Pathological abnormalities or Markers of kidney damage (including abnormalities in the composition of the blood or urine or abnormalities in imaging tests). Lab Interpretation (test code = 25975-0) Abnormal [facility] WITH [id number] 00:26:48* Test Item Value Reference Range Interpretation Comme nts WBC (test code = 6690-2) See_Comment [Automated messa ge] The system which generated this result transmitted reference range: 4.30 - 11.10 10*3/?L. The reference range was not used to interpret this result as normal/abnormal. RBC (test code = 789-8) See_Comment L [Automated messa ge] The system which generated this result transmitted reference range: 3.93 - 5.25 10*6/?L. The reference range was not used to interpret this result as normal/abnormal. HGB (test code = 718-7) 9.3 g/dL 11.6-15.0 L HCT (test code = 4544-3) 30.0 % 35.7-45.2 L MCV (test code = 787-2) 91.7 fL 80.6-95.5 MCH (test code = 785-6) 28.4 pg 25.9-32.8 MCHC (test code = 786-4) 31.0 g/dL 31.6-35.1 L RDW-SD (test code = 59914-1) 52.2 fL 39.0-49.9 H RDW-CV (test code = 788-0) 15.6 % 12.0-15.5 H PLT (test code = 777-3) See_Comment [Automated messa ge] The system which generated this result transmitted reference range: 166 - 358 10*3/?L. The reference range was not used to interpret this result as normal/abnormal. MPV (test code = 04463-2) 12.2 fL 9.5-12.9 NRBC/100 WBC (test code = 7445992003) See_Comment [Automated [employer] ssage] The system which generated this result transmitted reference range: 0.0 - 10.0 /100 WBCs. The reference range was not used to interpret this result as normal/abnormal. NRBC x10^3 (test code = 5934633423) See_Comment [Automated messa ge] The system which generated this result transmitted reference range: 10*3/?L. The reference range was not used to interpret this result as normal/abnormal. GRAN MAT (NEUT) % (test code = 770-8) 81.5 % IMM GRAN % (test code = 8748853296) 0.60 % LYMPH % (test code = 736-9) 11.4 % MONO % (test code = 5905-5) 5.9 % EOS % (test code = 713-8) 0.1 % BASO % (test code = 706-2) 0.5 % GRAN MAT x10^3(ANC) (test code = 3882907403) 8.31 10*3/uL 1.88-7.09 H IMM GRAN x10^3 (test code = 6074395322) 0.06 10*3/uL 0.00-0.06 LYMPH x10^3 (test code = 731-0) 1.16 10*3/uL 1.32-3.29 L MONO x10^3 (test code = 742-7) 0.60 10*3/uL 0.33-0.92 EOS x10^3 (test code = 711-2) 0.03-0.39 L BASO x10^3 (test code = 704-7) 0.05 10*3/uL 0.01-0.07 Lab Interpretation (test code = 27562-3) Abnormal [facility] [id number] 15:24:08* Test Item Value Reference Range Interpretation Comments TROPONIN I (test code = 9779723015) 0.006 ng/mL See_Comment [Automated message] The system which generated this result transmitted reference range: <=0.034. The reference range was not used to interpret this result as normal/abnormal. LINDA (test code = LINDA) Reference (Normal) Range (defined by the 99th percentile reference limit): <= 0.034 ng/mL Note: Cardiac troponin begins to rise 3-4 hours after the onset of ischemia. Repeat in 4-6 hours if the sample was drawn within 3-4 hours of the onset of the symptom and found normal. Diagnosis of myocardial injury is made with acute changes in cTn concentrations with at least one serial sample above the 99th percentile upper reference limit (URL), taken together with the patient's clinical presentation. Biotin has been reported to cause a negative bias, interpret results relative to patient's use of biotin. Lab Interpretation (test code = 75198-0) Normal [facility] [id number] 15:20:50* Test Item Value Reference Range Interpretation Comme nts NT-proBNP (test code = 6657577711) 4630 pg/mL See_Comment H [Automated message] The system which generated this result transmitted reference range: <=450. The reference range was not used to interpret this result as normal/abnormal. LINDA (test code = LINDA) Biotin has been reported to cause a negative bias, interpret results relative to patient's use of biotin. Lab Interpretation (test code = 95776-6) Abnormal [facility]. METABOLIC PANEL (17106)2022-01-11 15:10:28* Test Item Value Reference Range Interpretation Comme nts NA (test code = 8257901502) 132 mmol/L 135-145 L K (test code = 0811995628) 4.7 mmol/L 3.5-5.0 CL (test code = 9286313792) 95 mmol/L 98-108 L CO2 TOTAL (test code = 2994717652) 29 mmol/L 23-31 AGAP (test code = 5778603388) 2-16 BUN (test code = 0202934103) 56 mg/dL 7-23 H GLUCOSE (test code = 9446976544) 123 mg/dL 70-110 H CREATININE (test code = 9416541311) 2.49 mg/dL 0.50-1.04 H TOTAL BILI (test code = 9331788993) 0.4 mg/dL 0.1-1.1 CALCIUM (test code = 9162528415) 8.4 mg/dL 8.6-10.6 L T PROTEIN (test code = 0163097762) 6.5 g/dL 6.3-8.2 ALBUMIN (test code = 4067252209) 3.5 g/dL 3.5-5.0 ALK PHOS (test code = 9256805591) 142 U/L 34-122 H ALTv (test code = 1742-6) 31 U/L 5-35 AST(SGOT) (test code = 8584590892) 29 U/L 13-40 eGFR (test code = 3702620590) mL/min/1.73m2 LINDA (test code = LINDA) Association of Glomerular Filtration Rate (GFR) and Staging of Kidney Disease* + --+ --+ ------+| GFR (mL/min/1.73 m2) ?| With Kidney Damage ?| ?Without Kidney Damage+ --------+ --------+ +| ?>90 ?| ?Stage one ?| ? Normal ?+ ---+ ---+ -------+| ?60-89 ?| ?Stage two ?| ? Decreased GFR ? + --+ --+ ------+| ?30-59 ?| ?Stage three ?| ? Stage three ? + --+ --+ ------+| ?15-29 ?| ?Stage four ? | ? Stage four ?+ ---+ ---+ -------+| ?<15 (or dialysis) ? ?| ?Stage five ? | ? Stage five ?+ ---+ ---+ -------+ *Each stage assumes the associated GFR level has been in effect for at least three months. ?Stages 1 to 5, with or without kidney disease, indicate chronic kidney disease. Notes: Determination of stages one and two (with eGFR >59mL/min/1.73 m2) requires estimation of kidney damage for at least three months as defined by structural or functional abnormalities of the kidney, manifested by either:Pathological abnormalities or Markers of kidney damage (including abnormalities in the composition of the blood or urine or abnormalities in imaging tests). Lab Interpretation (test code = 10807-1) [facility]normal [facility] 15:10:08* Test Item Value Reference Range Interpretation Comme [facility] LIPASE (test code = 7315042685) 165 U/L 0-220 Lab Interpretation (test cod e = 87752-1) Normal [facility]villeACTIVATED PARTIAL THRMPLAS [id number] 15:07:46* Test Item Value Reference Range Interpretation Comme [facility] APTT Patient (test code = 3173-2) See_Comment [Automated message] The system which generated this result transmitted reference range: 23 - 38 Seconds. The reference range was not used to interpret this result as normal/abnormal. LINDA (test code = LINDA) The [facility] patient population mean normal value for aPTT is 30 seconds. Lab Interpretation (test code = 18659-3) Normal [facility]villePROTHROMBIN [facility] / [id number] 15:05:46* Test Item Value Reference Range Interpretation Comme nts PROTIME PATIENT (test code = 5964-2) See_Comment H [Automated messa ge] The system which generated this result transmitted reference range: 12.0 - 14.7 Seconds. The reference range was not used to interpret this result as normal/abnormal. INR (test code = 6301-6) Normal INR <1.1; Warfarin Therapeutic range 2.0 to 3.0 or 2.5 to 3.5, depending upon the indications. Lab Interpretation (test code = 81160-1) Abnormal [facility] WITH [id number] 14:53:25* Test Item Value Reference Range Interpretation Comme nts WBC (test code = 6690-2) See_Comment H [Automated messa ge] The system which generated this result transmitted reference range: 4.30 - 11.10 10*3/?L. The reference range was not used to interpret this result as normal/abnormal. RBC (test code = 789-8) See_Comment L [Automated messa ge] The system which generated this result transmitted reference range: 3.93 - 5.25 10*6/?L. The reference range was not used to interpret this result as normal/abnormal. HGB (test code = 718-7) 10.0 g/dL 11.6-15.0 L HCT (test code = 4544-3) 32.7 % 35.7-45.2 L MCV (test code = 787-2) 92.9 fL 80.6-95.5 MCH (test code = 785-6) 28.4 pg 25.9-32.8 MCHC (test code = 786-4) 30.6 g/dL 31.6-35.1 L RDW-SD (test code = 75771-4) 53.0 fL 39.0-49.9 H RDW-CV (test code = 788-0) 15.7 % 12.0-15.5 H PLT (test code = 777-3) See_Comment [Automated messa ge] The system which generated this result transmitted reference range: 166 - 358 10*3/?L. The reference range was not used to interpret this result as normal/abnormal. MPV (test code = 78338-0) 12.3 fL 9.5-12.9 NRBC/100 WBC (test code = 3070136077) See_Comment [Automated me ssage] The system which generated this result transmitted reference range: 0.0 - 10.0 /100 WBCs. The reference range was not used to interpret this result as normal/abnormal. NRBC x10^3 (test code = 6364136175) See_Comment [Automated messa ge] The system which generated this result transmitted reference range: 10*3/?L. The reference range was not used to interpret this result as normal/abnormal. GRAN MAT (NEUT) % (test code = 770-8) 78.6 % IMM GRAN % (test code = 2485588674) 0.50 % LYMPH % (test code = 736-9) 14.2 % MONO % (test code = 5905-5) 6.0 % EOS % (test code = 713-8) 0.4 % BASO % (test code = 706-2) 0.3 % GRAN MAT x10^3(ANC) (test code = 9077453607) 8.74 10*3/uL 1.88-7.09 H IMM GRAN x10^3 (test code = 0421774837) 0.05 10*3/uL 0.00-0.06 LYMPH x10^3 (test code = 731-0) 1.58 10*3/uL 1.32-3.29 MONO x10^3 (test code = 742-7) 0.67 10*3/uL 0.33-0.92 EOS x10^3 (test code = 711-2) 0.04 10*3/uL 0.03-0.39 BASO x10^3 (test code = 704-7) 0.03 10*3/uL 0.01-0.07 Lab Interpretation (test code = 89382-6) Abnormal [facility]2022-10-19 17:35:00* Test Item Value Reference Range Interpretation Comme nts Glucose POC (test code = Glucose POC) 319 70-99 [facility] AzleDqbxgflCDMZVRSCRI9832-70-15 17:28:00* Test Item Value Reference Range Interpretation Comme nts Coronavirus (COVID-19) ZULMA (test code = Coronavirus (COVID-19) ZULMA) Not Detected (12/22/21 12:28 PM) [facility]leCHEM [id number] 08:46:00* Test Item Value Reference Range Interpretation Comme nts Glucose Lvl (test code = Glucose Lvl) 226 70-99 BUN (test code = BUN) 30 7-22 Creatinine Lvl (test code = Creatinine Lvl) 1.31 0.50-1.40 Sodium Lvl (test code = Sodium Lvl) 138 135-145 Potassium Lvl (test code = P otassium Lvl) 4.0 3.5-5.1 Chloride Lvl (test code = Chloride Lvl) 102 95-109 CO2 (test code = CO2) 28 24-32 Calcium Lvl (test code = Calcium Lvl) 9.5 8.5-10.5 AGAP (test code = AGAP) 12.0 10.0-20.0 eGFR (test code = eGFR) 42 Magnesium Lvl (test code = M agnesium Lvl) 1.7 1.8-2.4 [facility]sp[facility]qyONZTGSRZX0237-33-59 08:46:00* Test Item Value Reference Range Interpretation Comme nts Glucose Lvl (test code = Glucose Lvl) 226 70-99 BUN (test code = BUN) 30 7-22 Creatinine Lvl (test code = Creatinine Lvl) 1.31 0.50-1.40 Sodium Lvl (test code = Sodium Lvl) 138 135-145 Potassium Lvl (test code = P otassium Lvl) 4.0 3.5-5.1 Chloride Lvl (test code = Chloride Lvl) 102 95-109 CO2 (test code = CO2) 28 24-32 Calcium Lvl (test code = Calcium Lvl) 9.5 8.5-10.5 AGAP (test code = AGAP) 12.0 10.0-20.0 eGFR (test code = eGFR) 42 Magnesium Lvl (test code = M agnesium Lvl) 1.7 1.8-2.4 [facility] AzleNfpkkfrRXYDXDGDEU1078-92-65 08:46:00* Test Item Value Reference Range Interpretation Comme nts Segs (test code = Segs) 74.2 45.0-75.0 Lymphocytes (test code = Lymphocytes) 17.4 20.0-40.0 Monocytes (test code = Monocytes) 5.8 2.0-12.0 Eosinophils (test code = Eosinophils) 2.0 <=4.0 Basophils (test code = Basophils) 0.6 <=1.0 Neutrophils # (test code = Neutrophils #) 7.3 1.5-8.1 Lymphocytes # (test code = Lymphocytes #) 1.7 1.0-5.5 Monocytes # (test code = Monocytes #) 0.6 <=0.8 Eosinophils # (test code = Eosinophils #) 0.2 <=0.5 Basophils # (test code = Basophils #) 0.1 <=0.2 WBC (test code = WBC) 9.8 3.7-10.4 RBC (test code = RBC) 2.88 4.20-5.40 Hgb (test code = Hgb) 8.4 12.0-16.0 Hct (test code = Hct) 26.7 36.0-48.0 MCV (test code = MCV) 92.8 80.0-98.0 MCH (test code = MCH) 29.1 pg 27.0-31.0 MCHC (test code = MCHC) 31.3 32.0-36.0 RDW (test code = RDW) 16.1 11.5-14.5 Platelet (test code = Platelet) 221 133-450 MPV (test code = MPV) 10.9 7.4-10.4 PT (test code = PT) 14.2 s 12.0-14.7 INR (test code = INR) 1.11 1 0.85-1.17 PTT (test code = PTT) 33.8 s 22.9-35.8 [facility]2022-10-18 08:23:00* Test Item Value Reference Range Interpretation Comme nts Glucose Lvl (test code = Glucose Lvl) 341 70-99 BUN (test code = BUN) 33 7-22 Creatinine Lvl (test code = Creatinine Lvl) 1.44 0.50-1.40 Sodium Lvl (test code = Sodium Lvl) 135 135-145 Potassium Lvl (test code = P otassium Lvl) 4.2 3.5-5.1 Chloride Lvl (test code = Chloride Lvl) 101 95-109 CO2 (test code = CO2) 30 24-32 Calcium Lvl (test code = Calcium Lvl) 9.2 8.5-10.5 AGAP (test code = AGAP) 8.2 10.0-20.0 eGFR (test code = eGFR) 38 Magnesium Lvl (test code = M agnesium Lvl) 2.4 1.8-2.4 [facility] CenterInnhfkbFFCKCZRYCJ8358-97-82 08:23:00* Test Item Value Reference Range Interpretation Comme nts Segs (test code = Segs) 81.6 45.0-75.0 Lymphocytes (test code = Lymphocytes) 12.0 20.0-40.0 Monocytes (test code = Monocytes) 4.6 2.0-12.0 Eosinophils (test code = Eosinophils) 1.3 <=4.0 Basophils (test code = Basophils) 0.5 <=1.0 Neutrophils # (test code = Neutrophils #) 8.6 1.5-8.1 Lymphocytes # (test code = Lymphocytes #) 1.3 1.0-5.5 Monocytes # (test code = Monocytes #) 0.5 <=0.8 Eosinophils # (test code = Eosinophils #) 0.1 <=0.5 Basophils # (test code = Basophils #) 0.1 <=0.2 WBC (test code = WBC) 10.6 3.7-10.4 RBC (test code = RBC) 2.99 4.20-5.40 Hgb (test code = Hgb) 8.7 12.0-16.0 Hct (test code = Hct) 27.7 36.0-48.0 MCV (test code = MCV) 92.7 80.0-98.0 MCH (test code = MCH) 29.1 pg 27.0-31.0 MCHC (test code = MCHC) 31.4 32.0-36.0 RDW (test code = RDW) 16.2 11.5-14.5 Platelet (test code = Platelet) 206 133-450 MPV (test code = MPV) 10.7 7.4-10.4 [facility]2022-10-17 21:59:00* Test Item Value Reference Range Interpretation Comme nts Gluc POC Comment 1 (test cod e = Gluc POC Comment 1) Notified RN/MD Gluc POC Comment 2 (test cod e = Gluc POC Comment 2) Cleaned Meter [facility] AzleBunjgscKDGCZM9134-89-11 18:14:31* Test Item Value Reference Range Interpretation Comme [facility] RADRPT (test code = RADRPT) EXAM: XR CHEST 1 VIEWDATE: 12/20/2021 11:54INDICATION: Abnormal chest sounds - pleural effusion. TECHNIQUE: Chest 1 viewFINDINGS: Comparison is made to December 15.IMPRESSION:A moderately large left pleural effusion obscures the left lower lobe and left cardiac margin. The right costophrenic sulcus is clear.There is a left retrocardiac opacity which may be due to a layering left pleural effusion and/or a left lower lobe airspace opacity such as pneumonia or atelectasis. There is right infrahilar subsegmental atelectasis.The cardiac silhouette is very enlarged. This is likely due to cardiomegaly with a significant pericardial effusion. [facility] CenterSp[facility]le.[facility] [id number] 04:58:00* Test Item Value Reference Range Interpretation Comme [facility] Glucose Lvl (test code = Glucose Lvl) 359 70-99 BUN (test code = BUN) 32 7-22 Creatinine Lvl (test code = Creatinine Lvl) 1.21 0.50-1.40 Sodium Lvl (test code = Sodium Lvl) 135 135-145 Potassium Lvl (test code = P otassium Lvl) 4.6 3.5-5.1 Chloride Lvl (test code = Chloride Lvl) 101 95-109 CO2 (test code = CO2) 30 24-32 Calcium Lvl (test code = Calcium Lvl) 8.6 8.5-10.5 AGAP (test code = AGAP) 8.6 10.0-20.0 eGFR (test code = eGFR) 47 [facility] [employer] [id number] 05:09:00* Test Item Value Reference Range Interpretation Comme [facility] Glucose Lvl (test code = Glucose Lvl) 276 70-99 BUN (test code = BUN) 37 7-22 Creatinine Lvl (test code = Creatinine Lvl) 1.39 0.50-1.40 Sodium Lvl (test code = Sodium Lvl) 137 135-145 Potassium Lvl (test code = P otassium Lvl) 4.6 3.5-5.1 Chloride Lvl (test code = Chloride Lvl) 100 95-109 CO2 (test code = CO2) 31 24-32 AGAP (test code = AGAP) 10.6 10.0-20.0 Calcium Lvl (test code = Calcium Lvl) 8.3 8.5-10.5 Albumin Lvl (test code = Albumin Lvl) 2.5 3.5-5.0 Phosphorus (test code = Phosphorus) 2.9 2.5-4.5 eGFR (test code = eGFR) 40 [facility]TgepgsiXPTKSQCAC3149-69-71 05:09:00* Test Item Value Reference Range Interpretation Comme nts Albumin Lvl (test code = Albumin Lvl) 2.5 3.5-5.0 Phosphorus (test code = Phosphorus) 2.9 2.5-4.5 [facility]2022-10-15 05:50:00* Test Item Value Reference Range Interpretation Comme nts Albumin Lvl (test code = Albumin Lvl) 2.4 3.5-5.0 Phosphorus (test code = Phosphorus) 4.0 2.5-4.5 [facility] CenterOeesctgQKVIMWQSHP3212-45-98 05:50:00* Test Item Value Reference Range Interpretation Comme nts Segs (test code = Segs) 74.0 45.0-75.0 Lymphocytes (test code = Lymphocytes) 15.9 20.0-40.0 Monocytes (test code = Monocytes) 6.9 2.0-12.0 Eosinophils (test code = Eosinophils) 2.5 <=4.0 Basophils (test code = Basophils) 0.7 <=1.0 Neutrophils # (test code = Neutrophils #) 7.7 1.5-8.1 Lymphocytes # (test code = Lymphocytes #) 1.7 1.0-5.5 Monocytes # (test code = Monocytes #) 0.7 <=0.8 Eosinophils # (test code = Eosinophils #) 0.3 <=0.5 Basophils # (test code = Basophils #) 0.1 <=0.2 WBC (test code = WBC) 10.4 3.7-10.4 RBC (test code = RBC) 2.99 4.20-5.40 Hgb (test code = Hgb) 8.7 12.0-16.0 Hct (test code = Hct) 27.5 36.0-48.0 MCV (test code = MCV) 91.9 80.0-98.0 MCH (test code = MCH) 29.2 pg 27.0-31.0 MCHC (test code = MCHC) 31.8 32.0-36.0 RDW (test code = RDW) 15.1 11.5-14.5 Platelet (test code = Platelet) 184 133-450 MPV (test code = MPV) 10.8 7.4-10.4 [facility] AzleBxkjlbnQCPLBV2128-07-74 21:22:37* Test Item Value Reference Range Interpretation Comme nts RADRPT (test code = RADRPT) EXAM: XR RIGHT HAND 3 VIEWSEXAM: XR RIGHT WRIST 3 VIEWSDATE: 12/17/2021 13:56INDICATION: - traumaCOMPARISON: None.TECHNIQUE: PA, lateral and oblique radiographs of the right hand and wristFINDINGS: * No acute fracture or malalignment is identified. * Multilevel degenerative changes in the form of joint space narrowing, osteophyte formation, subchondral sclerosis, and cystic changes most evident at the first CMC joint, first through third MCP joints, and radiocarpal joints. * Widening of the scaphoid lunate interval* Areas of chondrocalcinosis in the wrist.* Findings are most probably chronic and related to CPPD* Pulse oximetry device attached.IMPRESSION:1. No fracture identified.2. Mild widening of the scapholunate interval, which is likely chronic.3. Wrist chondrocalcinosis with moderate radiocarpal joint space narrowing and advanced arthrosis of the second and third MCP joints, consistent with calcium pyrophosphate deposition disease.4. 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 [facility] [id number] 11:14:00* Test Item Value Reference Range Interpretation Comme nts Albumin Lvl (test code = Albumin Lvl) 2.3 3.5-5.0 Phosphorus (test code = Phosphorus) 4.6 2.5-4.5 [facility] AzleIqmkkftSWSYWVEDO2589-92-22 11:14:00* Test Item Value Reference Range Interpretation Comme nts Hgb A1C (test code = Hgb A1C) 7.8 TSH (test code = TSH) 3.740 0.360-3.740 [facility] AzleJwaycidXAXXJOJAQE1379-12-37 11:14:00* Test Item Value Reference Range Interpretation Comme nts WBC (test code = WBC) 12.3 3.7-10.4 RBC (test code = RBC) 3.15 4.20-5.40 Hgb (test code = Hgb) 9.1 12.0-16.0 Hct (test code = Hct) 28.7 36.0-48.0 MCV (test code = MCV) 91.1 80.0-98.0 MCH (test code = MCH) 28.8 pg 27.0-31.0 MCHC (test code = MCHC) 31.6 32.0-36.0 RDW (test code = RDW) 15.4 11.5-14.5 Platelet (test code = Platelet) 220 133-450 MPV (test code = MPV) 11.1 7.4-10.4 Segs (test code = Segs) 72.8 45.0-75.0 Lymphocytes (test code = Lymphocytes) 16.8 20.0-40.0 Monocytes (test code = Monocytes) 7.8 2.0-12.0 Eosinophils (test code = Eosinophils) 1.9 <=4.0 Basophils (test code = Basophils) 0.7 <=1.0 Neutrophils # (test code = Neutrophils #) 8.9 1.5-8.1 Lymphocytes # (test code = Lymphocytes #) 2.1 1.0-5.5 Monocytes # (test code = Monocytes #) 1.0 <=0.8 Eosinophils # (test code = Eosinophils #) 0.2 <=0.5 Basophils # (test code = Basophils #) 0.1 <=0.2 [facility] EODCHKNVM0387-32-76 11:14:00* Test Item Value Reference Range Interpretation Comme nts Hgb A1C (test code = Hgb A1C) 7.8 [facility] AzleSkxoticYXBYDOQHBP0819-96-56 06:48:36* Test Item Value Reference Range Interpretation Comme nts WBC X 10x3 (test code = WBC X 10x3) 13.6 3.7-10.4 RBC X 10x6 (test code = RBC X 10x6) 2.91 4.20-5.40 Hgb (test code = Hgb) 8.4 12.0-16.0 Hct (test code = Hct) 26.8 36.0-48.0 MCV (test code = MCV) 92.3 80.0-98.0 MCH (test code = MCH) 29.0 pg 27.0-31.0 MCHC (test code = MCHC) 31.4 32.0-36.0 RDW (test code = RDW) 15.3 11.5-14.5 Platelet (test code = Platelet) 189 133-450 MPV (test code = MPV) 10.6 7.4-10.4 Segs (test code = Segs) 77.9 45.0-75.0 Lymphocytes (test code = Lymphocytes) 12.6 20.0-40.0 Monocytes (test code = Monocytes) 7.6 2.0-12.0 Eosinophils (test code = Eosinophils) 0.7 <=4.0 Basophils (test code = Basophils) 1.2 <=1.0 Neutrophils # (test code = Neutrophils #) 10.6 1.5-8.1 Lymphocytes # (test code = Lymphocytes #) 1.7 1.0-5.5 Monocytes # (test code = Monocytes #) 1.0 <=0.8 Eosinophils # (test code = Eosinophils #) 0.1 <=0.5 Basophils # (test code = Basophils #) 0.2 <=0.2 [facility] velingo2022-10-14 03:40:00* Test Item Value Reference Range Interpretation Comme nts proBNP (test code = proBNP) 897 <=450 [Automated [employer]] The system which generated this result transmitted reference range: <=450. The reference range was not used to interpret this result as normal/abnormal. [facility] MfchdsaOJWGLXHEK9596-43-82 03:40:00* Test Item Value Reference Range Interpretation Comme nts proBNP (test code = proBNP) 897 <=450 [Automated [employer]] The system which generated this result transmitted reference range: <=450. The reference range was not used to interpret this result as normal/abnormal. [facility] velingo2022-10-14 03:21:00* Test Item Value Reference Range Interpretation Comme nts Total CK (test code = Total CK) 65 12-191 [facility] UcskajiAJKPNUPVN7581-81-45 03:21:00* Test Item Value Reference Range Interpretation Comme nts Total CK (test code = Total CK) 65 12-191 [facility] AzleCdxilplFMLAJXILDH6105-76-18 22:38:00* Test Item Value Reference Range Interpretation [facility] Coronavirus (COVID-19) ZULMA (test code = Coronavirus (COVID-19) ZULMA) Not Detected (12/16/21 5:38 PM) [facility]poctAHFCZD1794-65-35 19:53:34* Test Item Value Reference Range Interpretation [facility] RADRPT (test code = RADRPT) EXAM: CT RIGHT LOWER EXTREMITY WITHOUT CONTRASTDATE: 12/16/2021 13:56INDICATION: - right knee pain and thigh hematoma, r/o occult fx knee COMPARISON: None.TECHNIQUE: Volumetric CT of the right lower extremity is acquired without contrast. Axial, coronal and sagittal images are provided.IV contrast: None.DLP: Refer to CT protocol formUT SECTION: ERFINDINGS:Manager Ob: NoncontributoryBones: A side plate with multiple screws seen fixating old fracture involving the distal femoral metadiaphysis. No hardware fracture. No new fracture.Soft tissues: There is a well-defined hematoma seen between the medial subcutaneous tissue of the thigh and the medial thigh muscles measures (13 x 5.6 x 13.6 cm ). There is mild prepatellar soft tissue swelling. No radiopaque foreign body or subcutaneous emphysema. No pneumarthrosis.IMPRESSION : There is well-defined hematoma seen between the medial subcutaneous tissue and the lower medial thigh muscles most likely represent Medley-Candelario hematoma. No acute fracture. [facility] CenterGdogmstVHWOOH1529-40-41 17:09:41* Test Item Value Reference Range Interpretation [facility]quis white[facility] RADRPT (test code = RADRPT) EXAM: CT CHEST WITH CONTRAST OUTSIDE CONSULTATION EXAM: CT ABDOMEN AND PELVIS WITH CONTRAST OUTSIDE CONSULTATIONDATE: 12/16/2021 6:23INDICATION: Second interpretation of outside CT performed on trauma transfer patient.COMPARISON: None.OUTSIDE REPORT: From [facility] TECHNIQUE: Images of the chest, abdomen and pelvis following intravenous administration of contrast. Delayed imaging was then performed through the abdomen and pelvis, using a radiation reduction technique. Axial, coronal and sagittal images displayed. MIP images of the aorta are also provided.FINDINGS:Lines and Tubes: None.Lower Neck: No acute abnormalityThoracic Aorta and Mediastinum: No mediastinal hematoma or thoracic aortic injury. A large pericardial fluid collection is present.Lungs and Pleura: Small to moderate, left greater than right, pleural effusions are noted. Bilateral dependent atelectasis is also present. No lung contusion. No other acute pulmonary abnormality. Hepatobiliary: Normal. Gallbladder: Surgically absent.Spleen: Normal.Pancreas: Normal.Adrenals: Normal.Kidneys: No injury. Nonobstructing punctate calculi in the right kidney lower pole.Ureters and Bladder: No injury.Gastrointestinal Tract: No injury. Peritoneum and Retroperitoneum: No free air or fluid.Abdominal/Pelvic Vasculature: No vascular injury.Reproductive Organs: No injury.Lymphadenopathy: None.Spine/Bones: No acute abnormality of the spine. Other bones and joints intact and in anatomic alignment. Soft Tissues: Unremarkable. IMPRESSION: No traumatic abnormality.This report is in general agreement with the outside interpretation. [facility] CenterGplnbbhNEBUON0226-39-05 11:52:50* Test Item Value Reference Range Interpretation Comme [facility] RADRPT (test code = RADRPT) EXAM: CT CERVICAL SPINE WITHOUT CONTRASTDATE: 12/16/2021 6:35INDICATION: - Outside filmsCOMPARISON: NoneTECHNIQUE: Volumetric CT of the cervical spine is acquired without contrast. Axial, coronal and sagittal images are provided. IV contrast: None.DLP: Refer to CT protocol formUT SECTION: ERFINDINGS: The spine is imaged from the skull base to the level of T2.Manager Ob: Noncontributory.Bones: No acute fracture or malalignment is identified. Multilevel degenerative changes of the spine with vertebral body osteophytes, uncovertebral joint hypertrophy, and facet arthropathy. Soft tissues: Right malar soft tissue contusion with small hematoma. Partially visualized left pleural fluid.IMPRESSION: 1. No acute fracture or malalignment of the cervical spine.2. Multilevel degenerative changes.3. Right malar soft tissue contusion and small hematoma. [facility] CenterUmicwkbXPWESU0538-69-19 11:46:07* Test Item Value Reference Range Interpretation Comme [facility] RADRPT (test code = RADRPT) EXAM: CT BRAIN WITHOUT CONTRAST -- OUTSIDE CONSULT.DATE: 12/16/2021INDICATION: - Outside films.COMPARISON: None.TECHNIQUE: Axial CT images of the brain were obtained. Sagittal and coronal reformats.IV contrast: NoneDLP: Refer to CT protocol formFINDINGS:No convincing abnormal intracranial hyperdensity to suggest acute intracranial hemorrhage. No convincing loss of nicole-white matter differentiation to suggest transcortical infarct.There is a hypoattenuating area seen within the left frontal region and adjoining anterior left basal ganglia which could represent age-indeterminate ischemic process, and given the ex vacuo prominence of the adjoining left frontal horn, favored chronic.No significant midline shift. Basal cisterns appear patent.No acute calvarial fracture. Presumed mild mucoperiosteal thickening in the right maxillary sinus.IMPRESSION:1. No convincing acute intracranial CT traumatic findings. No acute calvarial fracture.2. Left frontal/anterior basal ganglia presumed age indeterminate ischemic process, likely chronic given the ex vacuo prominence of the adjoining left frontal horn. Comparison with any available prior head imaging could be useful. More sensitive evaluation by MR brain could be considered at clinical discretion. [facility] CenterAgulzmsHYCCVG3955-55-59 11:41:30* Test Item Value Reference Range Interpretation Comme nts RADRPT (test code = RADRPT) EXAM: CT FACIAL BONES WITHOUT CONTRASTDATE: 12/16/2021 6:25INDICATION: - Outside films/fallCOMPARISON: NoneTECHNIQUE: Volumetric CT of the facial bones is acquired without contrast. Axial, coronal and sagittal images are provided. IV contrast: None.DLP: Refer to CT protocol formUT SECTION: ERFINDINGS: Manager Ob: Noncontributory.Bones: Limited evaluation on the frontal and superior orbital regions. Otherwise, no acute facial fracture identified. The mandible is intact, and the temporomandibular joints are well-aligned. Mucosal thickening in the right maxillary sinus. Soft tissues: Right malar soft tissue contusion and small hematoma. No globe contour abnormality is seen. There is no intraconal hematoma. No radiopaque foreign body is identified.IMPRESSION: 1. Limited evaluation on the frontal and superior orbital regions. Otherwise, no acute facial fracture identified.2. Right malar soft tissue contusion and small hematoma. [facility] CenterEesofxgRYPHPNAVPE3556-48-38 11:27:00* Test Item Value Reference Range Interpretation Comme nts PT (test code = PT) 15.4 s 12.0-14.7 INR (test code = INR) 1.23 1 0.85-1.17 PTT (test code = PTT) 32.4 s 22.9-35.8 [facility] AzleURINE AND JXNUN0358-19-53 11:27:00* Test Item Value Reference Range Interpretation Comme nts UA Color (test code = UA Color) Yellow *NA*(12/16/21 6:27 AM) UA Turbidity (test code = UA Turbidity) Slight Cloudy (12/16/21 6:27 AM) UA Spec Grav (test code = UA Spec Grav) 1.025 1 UA pH (test code = UA pH) 5.5 1 5.0-8.0 UA Protein (test code = UA Protein) 30 mg/dL UA Glucose (test code = UA Glucose) 100 mg/dL UA Ketones (test code = UA Ketones) Negative *NA*(12/16/21 6:27 AM) UA Bili (test code = UA Bili) Negative *NA*(12/16/21 6:27 AM) UA Blood (test code = UA Blood) Large *ABN*(12/16/21 6:27 AM) UA Urobilinogen (test code = UA Urobilinogen) 0.2 0.1-1.0 UA Nitrite (test code = UA Nitrite) Negative (12/16/21 6:27 AM) UA Leuk Est (test code = UA Leuk Est) Small *ABN*(12/16/21 6:27 AM) UA Sq Epi (test code = UA Sq Epi) Few /LPF UA WBC (test code = UA WBC) 11-20 /HPF <=5 UA RBC (test code = UA RBC) 11-20 /HPF <=2 UA Bacteria (test code = UA Bacteria) Moderate /HPF UA Mucus (test code = UA Mucus) Few /LPF [facility] History and Physical Notes Date/Time Note Provider Source 2021-12-22 22:00:00 Beverly Chawla MD: PER FORMEvent Display: History and PhysicalAuthored Date: [id number] and Physical Code Status: Full Resuscitation Chief Complaint: Transfer from [facility] under Dr. Buckley for R thigh hematoma s/p fall from standing. PMH: COPD, CHF History of Present Illness: Ms. Dotson is a 76-year-old lady with history of COPD, intermittently on 2 L nasal cannula at home, type 2 diabetes mellitus, dependent on insulin, complicated by peripheral neuropathy, hypertension, underlying CKD stage II (baseline creatinine around 1.3 in May 2021), hypothyroidism, gout, GERD, anxiety and depression, who presents to the hospital after a mechanical ground-level fall with resulting right leg Medley Candelario lesion.The patient lives at home with her daughter, and uses a cane intermittently for ambulation. Today afternoon, around 3:30 PM, the patient was trying to go to the bathroom, when she had urinary incontinence (chronic, for the last 3 to 4 months), and slipped on her urine, falling on the floor. She denies any injuries other than to the right leg. Denies any head injury or loss of consciousness. She states she could not stand up, and waited on the floor for about 2 to 3 hours, after which her daughter returned home from work, and brought her to an outside hospital. She was transferred from the to [facility] for higher level of care given pain and swelling of the right thigh and knee with ecchymosis and blistering to the medial thigh, with initial imaging demonstrating hematoma in the lower medial thigh concerning for Medley Candelario lesion without any acute fractures or active extravasation. She has been evaluated by trauma surgery who recommends continued compartment checks, without any surgical intervention. CT of the lower extremity ruled out any fractures.On arrival to the hospital, the patient has been hemodynamically stable, although labs concerning for RAYNE on CKD with BUN/creatinine 58/2.58, hyperkalemic with potassium 5.3 from 5.9 earlier in the day. A UA was obtained for unclear reasons, and a Barbosa catheter placed on patient's arrival to the ED, with UA suggestive of UTI, and patient started on IV ceftriaxone for cystitis. The patient denies any fevers or chills, no suprapubic discomfort, no urinary retention, no dysuria or urinary frequency.She states she has been told by her doctors, that her kidney function has declined lately, however was never concerning outpatient. She denies any lower urinary tract symptoms. Denies any recent change in her medications.She currently complains of 6/10 throbbing and aching pain in her right thigh, worse with ambulation, more so with flexion of the right knee, which is limited due to pain. Review of Systems: Complete ROS negative except as described in the HPI above Problem List/Past Medical History: Ongoing Anxiety and depression Chronic hypoxemic respiratory failure CKD (chronic kidney disease), stage II COPD without exacerbation GERD (gastroesophageal reflux disease) Gout Hypertension Hypothyroidism Insulin dependent type 2 diabetes mellitus Peripheral neuropathy Urinary incontinence Procedure/Surgical History: tonsillectomylaproscopic cholecystectomy Family History: mother - heart disease, lung disease (smoker)father - diabetes, lung disease (smoker) Social History: Denies any hx of smoking, alcohol or illicit drug useLives with daughterUses a cane for ambulation at times Allergies: No Known Allergies Home Medications: allopurinol 300 mg oral tablet, 300 mg= 1 tab, PO, QPM aspirin 81 mg tablet, enteric coated, 81 mg= 1 tab, PO, Daily busPIRone 10 mg oral tablet, 10 mg= 1 tab, PO, TID Bystolic 10 mg oral tablet, 10 mg= 1 tab, PO, QAM calcium 600 mg, 1 tab, PO, Daily doxazosin 8 mg oral tablet, 8 mg= 1 tab, PO, Daily Farxiga 5 mg oral tablet, 5 mg= 1 tab, PO, Daily gabapentin 100 mg oral capsule, 100 mg= 1 cap, PO, QAM gabapentin 300 mg oral capsule, 300 mg= 1 cap, PO, BID glimepiride 2 mg oral tablet, 2 mg= 1 tab, PO, BID hydrALAZINE 25 mg oral tablet, 25 mg= 1 tab, PO, BID Levemir 100 units/mL, 20 unit, SUB-Q, BID levothyroxine 75 mcg (0.075 mg) oral tablet, 75 microgram= 1 tab, PO, Daily Lexapro 10 mg oral tablet, 10 mg= 1 tab, PO, Daily loperamide 2 mg oral tablet, 2 mg= 1 tab, PO, PRN losartan 50 mg oral tablet, 50 mg= 1 tab, PO, BID magnesium 400 mg, 1 tab, PO, Daily montelukast 10 mg oral tablet, 10 mg= 1 tab, PO, Daily omega-3 polyunsaturated fatty acids 1000 mg oral capsule, 1000 mg= 1 cap, PO, Daily omeprazole 20 mg oral enteric coated tablet, 20 mg= 1 tab, PO, BID pravastatin 80 mg oral tablet, 80 mg= 1 tab, PO, QPM Soliqua 100/33, 48 unit, SUB-Q, Daily Trelegy Ellipta 100 mcg-62.5 mcg-25 mcg/inh inhalation powder, 1 puff, INHALATION, QAM tumeric 500 mg, 1 tab, PO, Daily Vitamin C, 1 tab, PO, Daily Vitamin D3 1000 intl units oral tablet, 25 microgram= 1 tab, PO, Daily ZyrTEC 10 mg oral tablet, 10 mg= 1 tab, PO, Daily Physical Exam: Vitals and Measurements T: 97.9 F (Oral) HR: 63 (Apical) RR: 20 BP: 122/61 SpO2: 94% General - Patient comfortable, in NADNeuro - AAOx 3, motor 5/5 in all extremitiesHEENT - anicteric, no pallor, MMMNeck - no lymphadenopathy, no Jugular venous distensionCardio - Regular rate and rhythm, S1 S2 wnI, no murmurs/rub/gallopsResp - bibasilar crackles, no wheezeAbdomen - soft, non-tender, non-distended, no hepatosplenomegaly, NABSExt - Right thigh ecchymosis medially with a blister, tenderness to palpation, dorsalis pedis pulse intact, Lasix range of motion restricted to the right knee due to pain, no edema.Barbosa catheter with clear urine in the bag, however brown sediment in the catheter itself. Pertinent Labs: Hct: 30.5 % Low (12/16/21 06:27:00)Hgb: 9.5 g/dL Low (12/16/21 06:27:00)MCH: 28.9 pg (12/16/21 06:27:00)MCHC: 31 g/dL Low (12/16/21 06:27:00)MCV: 93.4 fL (12/16/21 06:27:00)MPV: 11.1 fL High (12/16/21 06:27:00)Platelet: 241 K/CMM (12/16/21 06:27:00)RBC: 3.27 M/CMM Low (12/16/21 06:27:00)RDW: 15.5 % High (12/16/21 06:27:00)WBC: 16.2 K/CMM High (12/16/21 06:27:00) CO2: 32 mEq/L (12/16/21 14:02:00)Chloride Lvl: 100 mEq/L (12/16/21 14:02:00)Sodium Lvl: 136 mEq/L (12/16/21 14:02:00)Glucose Lvl: 139 mg/dL High (12/16/21 14:02:00)Calcium Lvl: 8.7 mg/dL (12/16/21 14:02:00)Potassium Lvl: 5.3 mEq/L High (12/16/21 14:02:00)BUN: 58 mg/dL High (12/16/21 14:02:00)AGAP: 9.3 mEq/L Low (12/16/21 14:02:00)Creatinine Lvl: 2.58 mg/dL High (12/16/21 14:02:00) Pertinent Imaging: (12/16/2021 06:29 CDT Torso-Outside Consult CT)Small to moderate, left greater than right, pleural effusions are noted. Bilateral dependent atelectasis is also present. No lung contusion. No other acute pulmonary abnormality. [1] (12/16/2021 06:29 CDT Tor[facility]-Outside Consult CT)No traumatic abnormality. [2] (12/16/2021 14:37 CDT Extremity Lower wo contrast uni CT)There is well-defined hematoma seen between the medial subcutaneous tissue and the lower medial thigh muscles most likely represent Medley-Candelario hematoma. No acute fracture. [3] (12/16/2021 06:40 CDT Spine-Outside Consult CT)1. No acute fracture or malalignment of the cervical spine.2. Multilevel degenerative changes.3. Right malar soft tissue contusion and small hematoma. [4] Assessment/Plan: 1. Meldey Candelario lesion (T14.8XXA) Nonoperative management per trauma surgeryCompression wrap applied in the EDCompartment checks overnight, with removal of compression 1-2 times daily, to evaluate legCleared for DVT prophylaxis Ordered: Admit/Condition, 12/16/21 19:53:00 CDT, Status: Inpatient, Acute, Location: [address] [place] [address], Expected LOS: 2 Midnights, Valeria Barkley MD, Admit MD Review/Approve Yes, Isolation: No Isolation/Standard Precautions, Medley Candelario lesion 2. Acute blood loss anemia (D62) Baseline hemoglobin around 13 and May 2021Hemoglobin drop secondary to debilitation as aboveManagement per trauma surgeryContinue to monitor daily CBCCleared with chemical DVT prophylaxis 3. Acute knee pain (M25.569) No evidence fractures on CT legSecondary to traumaPT and OT evaluationWeightbearing as toleratedSubcutaneous heparin for DVT prophylaxis 4. Acute cystitis (N30.00) Although patient not complaining of dysuria or frequency, the patient does have new urinary incontinence, worsening over the last few months.Status post 1 dose of IV ceftriaxone in the ERFollow-up urine culturesVoid trialContinue with IV ceftriaxone for 5 days. 5. Urinary incontinence (R32) Discontinue barbosa catheterManagement of cystitis as aboveexternal urinary catheter while pending PT evaluation 6. ATN (acute tubular necrosis) (N17.0) 7. CKD (chronic kidney disease), stage II (N18.2) Patient appears volume overloaded on exam, with bibasilar cracklesCheck for urinary retention with void trialNot a/w LUTSBaseline creatinine around 1.2Suspect underlying heart failure with elevated BNP reported in May 2021 in the 4000sAdd on pro-BNP to previously collected labsDiurese with one dose of lasix 40mg IVP and repeat BMP in AMMonitor strict I/OsDose meds renally 8. Bilateral pleural effusion (J90) Suspect underlying heart failure with elevated BNP reported in May 2021 in the 3999sAdd on pro-BNP to previously collected labsDiurese with one dose of lasix 40mg IVP and repeat BMP in Nadeem 2L NC intermittently at homeCheck ECHO. Patient denies hx of heart failure or cardiac disease 9. Insulin dependent type 2 diabetes mellitus (E11.9) Check HbA1c in AMInsulin sliding scale w/meals.Carb controlled dietGoal glucose 140-180Resume levemir at half dose 10 units [id number] soliqua 48 units daily at home. - resume as lantus 20 units daily inpatienthold glimeperide 10. Peripheral neuropathy (G62.9) resume gabapentin at home dose- renally dose if RAYNE persists 11. Hypertension (I10) doxazosin, hydralazine, losartan at home dose 12. COPD without exacerbation (J44.9) 13. Chronic hypoxemic respiratory failure (J96.11) On 2L NC intermittently at homeResume ellipita inhaler if family can bring itPRN luisIramontelukast for associated asthma 14. Hypothyroidism (E03.9) levothyroxine 15. Anxiety and depression (F41.9) lexapro and buspirone 16. GERD (gastroesophageal reflux disease) (K21.9) pantoprazole 17. Gout (M10.9) allopurinol 18. Hyperkalemia Diurese with one dose of lasix 40mg IVP. Repeat BMP in AM. EKG without acute abnls. Prophylaxis subq heparin Disposition TBD upon PT/OT evaluation, pending trauma surgery clearance and improvement in renal functiom[1] Tor[facility]-Outside Consult CT; German Garay MD 12/16/2021 06:29 CDT [2] Torso-Outside Consult CT; German Garay MD 12/16/2021 06:29 CDT [3] Extremity Lower wo contrast uni CT; Juanjo Nicole MD 12/16/2021 14:37 CDT [4] Spine-Outside Consult CT; Rudy Norris MD 12/16/2021 06:40 CDT Beverly Chawla MDElectronically Signed: 12/16/21 20:06 [facility] 2021-12-22 22:00:00 Beverly Chawla MD: PER FORMEvent Display: History and PhysicalAuthored Date: [id number]'s blood pressure has been borderline low since hospitalization. We will still continue with IV Lasix challenge, 1 dose.Discontinue losartan, hydralazine, doxazosinContinue with labetalol with holding parametersPatient recently prescribed levothyroxine 50 mcg daily while actually taking 75 mcg at home. Check TSH in a.m. Resume levothyroxine 50 mcg daily inpatient. Beverly Chawla MDElectronically Signed: 12/16/21 20:14 [facility] 2021-12-22 22:00:00 Beverly Chawla MD: PER FORMEvent Display: History and PhysicalAuthored Date: [id number] team will be admitting patient as primary. Hospitalist service will be signing off at this time. Please feel free to reconsult us as needed. Discussed with the team and they are comfortable taking care of renal dysfunction themselves.Beverly Chawla MDElectronically Signed: 12/16/21 21:13 [facility] Notes Date/Time Note Provider Source 2021-12-20 12:48:00 EXAM: XR CHEST 1 VIE W DATE: 12/20/2021 11:54 INDICATION: Abnormal chest sounds - pleural effusion. TECHNIQUE: Chest 1 view FINDINGS: Comparison is made to December 15. IMPRESSION: A moderately large left pleural effusion obscures the left lower lobe and left cardiac margin. The right costophrenic sulcus is clear. There is a left retrocardiac opacity which may be due to a layering left pleural effusion and/or a left lower lobe airspace opacity such as pneumonia or atelectasis. There is right infrahilar subsegmental atelectasis. The cardiac silhouette is very enlarged. This is likely due to cardiomegaly with a significant pericardial effusion. [facility] 2021-12-17 14:55:00 EXAM: XR RIGHT HAND 3 VIEWS EXAM: XR RIGHT WRIST 3 VIEWS DATE: 12/17/2021 13:56 INDICATION: - trauma COMPARISON: None. TECHNIQUE: PA, lateral and oblique radiographs of the right hand and wrist FINDINGS: * No acute fracture or malalignment is identified. * Multilevel degenerative changes in the form of joint space narrowing, osteophyte formation, subchondral sclerosis, and cystic changes most evident at the first CMC joint, first through third MCP joints, and radiocarpal joints. * Widening of the scaphoid lunate interval * Areas of chondrocalcinosis in the wrist. * Findings are most probably chronic and related to CPPD * Pulse oximetry device attached. IMPRESSION: 1. No fracture identified. 2. Mild widening of the scapholunate interval, which is likely chronic. 3. Wrist chondrocalcinosis with moderate radiocarpal joint space narrowing and advanced arthrosis of the second and third MCP joints, consistent with calcium pyrophosphate deposition disease. 4. 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 [facility] 2021-12-16 14:26:58 EXAM: CT RIGHT LOWER EXTREMITY WITHOUT CONTRAST DATE: 12/16/2021 13:56 INDICATION: - right knee pain and thigh hematoma, r/o occult fx knee COMPARISON: None. TECHNIQUE: Volumetric CT of the right lower extremity is acquired without contrast. Axial, coronal and sagittal images are provided. IV contrast: None. DLP: Refer to CT protocol form [place] SECTION: ER FINDINGS: Manager Ob: Noncontributory Bones: A side plate with multiple screws seen fixating old fracture involving the distal femoral metadiaphysis. No hardware fracture. No new fracture. Soft tissues: There is a well-defined hematoma seen between the medial subcutaneous tissue of the thigh and the medial thigh muscles measures (13 x 5.6 x 13.6 cm ). There is mild prepatellar soft tissue swelling. No radiopaque foreign body or subcutaneous emphysema. No pneumarthrosis. IMPRESSION: There is well-defined hematoma seen between the medial subcutaneous tissue and the lower medial thigh muscles most likely represent Medley-Candelario hematoma. No acute fracture. [facility] 2021-12-16 06:36:07 EXAM: CT CERVICAL SP INE WITHOUT CONTRAST DATE: 12/16/2021 6:35 INDICATION: - Outside films COMPARISON: None TECHNIQUE: Volumetric CT of the cervical spine is acquired without contrast. Axial, coronal and sagittal images are provided. IV contrast: None. DLP: Refer to CT protocol form [place] SECTION: ER FINDINGS: The spine is imaged from the skull base to the level of T2. Manager Ob: Noncontributory. Bones: No acute fracture or malalignment is identified. Multilevel degenerative changes of the spine with vertebral body osteophytes, uncovertebral joint hypertrophy, and facet arthropathy. Soft tissues: Right malar soft tissue contusion with small hematoma. Partially visualized left pleural fluid. IMPRESSION: 1. No acute fracture or malalignment of the cervical spine. 2. Multilevel degenerative changes. 3. Right malar soft tissue contusion and small hematoma. [facility] 2021-12-16 06:27:59 EXAM: CT BRAIN WITHO UT CONTRAST -- OUTSIDE CONSULT. DATE: 12/16/2021 INDICATION: - Outside films. COMPARISON: None. TECHNIQUE: Axial CT images of the brain were obtained. Sagittal and coronal reformats. IV contrast: None DLP: Refer to CT protocol form FINDINGS: No convincing abnormal intracranial hyperdensity to suggest acute intracranial hemorrhage. No convincing loss of nicole-white matter differentiation to suggest transcortical infarct. There is a hypoattenuating area seen within the left frontal region and adjoining anterior left basal ganglia which could represent age-indeterminate ischemic process, and given the ex vacuo prominence of the adjoining left frontal horn, favored chronic. No significant midline shift. Basal cisterns appear patent. No acute calvarial fracture. Presumed mild mucoperiosteal thickening in the right maxillary sinus. IMPRESSION: 1. No convincing acute intracranial CT traumatic findings. No acute calvarial fracture. 2. Left frontal/anterior basal ganglia presumed age indeterminate ischemic process, likely chronic given the ex vacuo prominence of the adjoining left frontal horn. Comparison with any available prior head imaging could be useful. More sensitive evaluation by MR brain could be considered at clinical discretion. [facility] 2021-12-16 06:27:59 EXAM: CT FACIAL BONE S WITHOUT CONTRAST DATE: 12/16/2021 6:25 INDICATION: - Outside films/fall COMPARISON: None TECHNIQUE: Volumetric CT of the facial bones is acquired without contrast. Axial, coronal and sagittal images are provided. IV contrast: None. DLP: Refer to CT protocol form [place] SECTION: ER FINDINGS: Manager Ob: Noncontributory. Bones: Limited evaluation on the frontal and superior orbital regions. Otherwise, no acute facial fracture identified. The mandible is intact, and the temporomandibular joints are well-aligned. Mucosal thickening in the right maxillary sinus. Soft tissues: Right malar soft tissue contusion and small hematoma. No globe contour abnormality is seen. There is no intraconal hematoma. No radiopaque foreign body is identified. IMPRESSION: 1. Limited evaluation on the frontal and superior orbital regions. Otherwise, no acute facial fracture identified. 2. Right malar soft tissue contusion and small hematoma. [facility] 2021-12-16 06:27:43 EXAM: CT CHEST WITH CONTRAST OUTSIDE CONSULTATION EXAM: CT ABDOMEN AND PELVIS WITH CONTRAST OUTSIDE CONSULTATION DATE: 12/16/2021 6:23 INDICATION: Second interpretation of outside CT performed on trauma transfer patient. COMPARISON: None. OUTSIDE REPORT: From [facility] TECHNIQUE: Images of the chest, abdomen and pelvis following intravenous administration of contrast. Delayed imaging was then performed through the abdomen and pelvis, using a radiation reduction technique. Axial, coronal and sagittal images displayed. MIP images of the aorta are also provided. FINDINGS: Lines and Tubes: None. Lower Neck: No acute abnormality Thoracic Aorta and Mediastinum: No mediastinal hematoma or thoracic aortic injury. A large pericardial fluid collection is present. Lungs and Pleura: Small to moderate, left greater than right, pleural effusions are noted. Bilateral dependent atelectasis is also present. No lung contusion. No other acute pulmonary abnormality. Hepatobiliary: Normal. Gallbladder: Surgically absent. Spleen: Normal. Pancreas: Normal. Adrenals: Normal. Kidneys: No injury. Nonobstructing punctate calculi in the right kidney lower pole. Ureters and Bladder: No injury. Gastrointestinal Tract: No injury. Peritoneum and Retroperitoneum: No free air or fluid. Abdominal/Pelvic Vasculature: No vascular injury. Reproductive Organs: No injury. Lymphadenopathy: None. Spine/Bones: No acute abnormality of the spine. Other bones and joints intact and in anatomic alignment. Soft Tissues: Unremarkable. IMPRESSION: No traumatic abnormality. This report is in general agreement with the outside interpretation. [facility]
[2024-06-02 22:18] LABS: PT Prothrombin Time 16.6 SECONDS (10-13.0); Protime INR 1.48
[2024-06-02 22:19] LABS: Absolute Basophils 0.1 K/uL (0-0.5); Absolute Eosinophils 0.1 K/uL (0-0.5); Absolute Lymphocytes (CBC) 0.8 K/uL (0.7-4.9); Absolute Monocytes 0.2 K/uL (0.1-1.3); Absolute Neutrophil 9.3 K/uL (1.8-8.0); Basophils % 0.6 % (0-1.3); Eosinophils % 0.6 % (0-4.4); Hematocrit 23.4 % (36.0-45.0); Hemoglobin 7.3 g/dL (12.0-15.0); Lymphocytes % 7.9 % (15.3-44.8); MCH 29.9 pg (27.0-35.0); MCHC 31.2 g/dL (32.0-36.0); MCV 95.7 fL (80-100); MPV 10.1 fL (7.6-11.3); Monocytes % 2.2 % (3.3-12.3); Neutrophils % 88.7 % (41.7-73.7); Platelets 195 thou/uL (152-406); RBC Red Blood Cell Count 2.45 M/uL (3.86-4.86); Red Cell Distribution Width 17.5 % (12.1-15.2)
--- NOTE | 2024-06-02 22:21 | RAD REPORT ---
EXAM: Chest Single View HISTORY: 79 years Female hypxemia COMPARISON: 05/20/2024 FINDINGS: LUNGS/PLEURA: Similar diffuse prominence of the pulmonary interstitium. Small left pleural effusion. CARDIAC/MEDIASTINUM: Stable enlargement. UPPER ABDOMEN: No significant abnormality. BONES: No acute abnormality. LINES/TUBES/OTHER: N/A IMPRESSION: Pulmonary edema, similar to 05/20/2024.
[2024-06-02 22:32] LABS: Albumin 2.5 g/dL (3.4-5.0); Albumin/Globulin Ratio 0.7 (1.1-1.8); Alkaline Phosphatase 103 U/L (45-117); Anion Gap 6.5 mEq/L (5.0-15.0); BUN Blood Urea Nitrogen 61 mg/dL (7-18); Bicarbonate 29 mEq/L (21-32); Bilirubin Total 0.4 mg/dL (0.2-1.0); Globulin 3.8 g/dL (2.3-3.5); Glomerular Filtration Rate 28 ml/min (=/>90); Glucose Level 289 mg/dL (74-106); Magnesium 2.5 mg/dL (1.6-2.4); NT PRO-BNP 7225 pg/mL (<450); Potassium 4.5 mEq/L (3.5-5.1); Protein, Total 6.3 g/dL (6.4-8.2); Sodium Level 137 mEq/L (136-145); Troponin High Sensitivity 17.1 pg/mL (<58.9)
[2024-06-02 22:35] LABS: ALT/SGPT < 14 U/L (13-56); AST/SGOT < 10 U/L (15-37); Bilirubin Direct < 0.2 mg/dL (0-0.2); Bilirubin Indirect, Calculated 0.2 mg/dL (0.2-0.8)
[2024-06-02 23:04] LABS: Band Neutrophils 7 % (0-1); Differential Total Cells Count 100; Eosinophils 3 % (0-3); Lymphocytes 5 % (15-42); Metamyelocytes 1 % (0-0); Monocytes 2 % (0-10); Segmented Neutrophils 82 % (40-80)
[2024-06-02 23:05] LABS: Blood Morphology Comment NOT SEEN (NOT SEEN); Platelet Estimate ADEQ
[2024-06-03] MEDS ORDERED: CEFTRIAXONE 1000 MG/VIAL ONE (00:06)
[2024-06-03] MEDS ORDERED: VANCOMYCIN 1 GM/VIAL ONE (00:06)
[2024-06-03] MEDS ORDERED: ONDANSETRON 4 MG/2 ML VIAL ONE (00:06)
[2024-06-03] MEDS ORDERED: NA CHLORIDE 0.9% 250 ML ONE (00:07)
[2024-06-03] MEDS ORDERED: FENTANYL CITR 100 MCG/2 ML ONE (00:07)
[2024-06-03] MEDS ORDERED: FUROSEMIDE 40 MG/4 ML VIAL ONE (01:37)
--- NOTE | 2024-06-03 01:42 | ER ---
Nurse's Notes [facility] Name: Kaitlynn Snider Age: 79 yrs Sex: Female : 1945 Arrival Date: 06/02/2024 Time: 21:39 Bed 17 Private MD: Diagnosis: Epistaxis;Acute on chronic combined systolic (congestive) and diastolic (congestive) heart failure;Pleural effusion, not elsewhere classified;Left large pleural effusion, acute CHF exacerbation, acute pulmonary edema, acute right epistaxis secondary to chronic anticoagulation. Presentation: 06/02 21:41 Chief complaint: EMS states: nosebleed that has since been resolved. Patient is at cp4 baseline per EMS. Coronavirus screen: Client denies travel out of the [place] in the last 14 days. At this time, the client does not indicate any symptoms associated with coronavirus-19. Ebola Screen: Patient negative for fever greater than or equal to 101.5 degrees Fahrenheit, and additional compatible Ebola Virus Disease symptoms Patient denies exposure to infectious person. Patient denies travel to an Ebola-affected area in the 21 days before illness onset. No symptoms or risks identified at this time. Initial Sepsis Screen: Does the patient meet any 2 criteria? No. Patient's initial sepsis screen is negative. Does the patient have a suspected source of infection? No. Patient's initial sepsis screen is negative. Risk Assessment: Do you want to hurt yourself or someone else? Patient reports no desire to harm self or others. Onset of symptoms was June 03, 2024. 21:41 Method Of Arrival: EMS: [facility] 4 21:41 Acuity: RHINA 4 cp4 Triage Assessment: 21:42 General: Appears in no apparent distress. uncomfortable, Behavior is calm, appropriate cp4 for age. Pain: Denies pain. EENT: No signs and/or symptoms were reported regarding the EENT system. Neuro: Level of Consciousness is awake, obeys commands, Oriented to person, place. Cardiovascular: Patient's skin is warm and dry. Respiratory: Airway is patent Respiratory effort is even, unlabored. GI: No signs and/or symptoms were reported involving the gastrointestinal system. : No signs and/or symptoms were reported regarding the genitourinary system. Derm: No signs and/or symptoms reported regarding the dermatologic system. Musculoskeletal: No signs and/or symptoms reported regarding the musculoskeletal system. 21:42 Respiratory: Breath sounds with crackles bilaterally. 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 - Infectious Disease History:: Denies. - Social history:: Smoking status: unknown. - Family history:: not pertinent. Screenin:45 [facility] ED Fall Risk Assessment (Adult) History of falling in the last 3 months, cp4 including since admission No falls in past 3 months (0 pts) Confusion or Disorientation Yes (5 pts) Intoxicated or Sedated No (0 pts) Impaired Gait Yes (1 pt) Mobility Assist Device Used Yes (1 pt) Altered Elimination No (0 pt) Score/Fall Risk Level 3 or more points = High Risk Oriented to surroundings, Maintained a safe environment, Assessed \T\ reinforced patient's understanding of fall precautions, Hourly rounding (assess needs \T\ fall precautionary measures) done, Apply high fall risk patient identification: yellow non skid footwear/ fall signage. Abuse screen: Denies threats or abuse. Denies injuries from another. Nutritional screening: No deficits noted. Tuberculosis screening: No symptoms or risk factors identified. Assessment: 21:45 Reassessment: No changes from previously documented assessment. cp4 23:00 Reassessment: Patient appears in no apparent distress at this time. Patient and/or cp4 family updated on plan of care and expected duration. Pain level reassessed. Patient is alert, oriented x 3, equal unlabored respirations, skin warm/dry/pink. 06/03 00:00 Reassessment: Patient appears in no apparent distress at this time. Patient and/or cp4 family updated on plan of care and expected duration. Pain level reassessed. Patient is alert, oriented x 3, equal unlabored respirations, skin warm/dry/pink. 01:00 Reassessment: Patient appears in no apparent distress at this time. Patient and/or cp4 family updated on plan of care and expected duration. Pain level reassessed. Patient is alert, oriented x 3, equal unlabored respirations, skin warm/dry/pink. 02:13 Reassessment: Patient appears in no apparent distress at this time. Patient and/or cp4 family updated on plan of care and expected duration. Pain level reassessed. Patient is alert, oriented x 3, equal unlabored respirations, skin warm/dry/pink. Vital Signs: 06/02 21:41 BP 117 / 45; Pulse 72; Resp 18; Temp 98.1; Pulse Ox 95% on 3 lpm NC; Weight 99.79 kg; cp4 Height 5 ft. 1 in. ; Pain 0/10; 22:35 BP 116 / 42; Pulse 65; Resp 18; Pulse Ox 98% on 3 lpm NC; cp4 06/03 01:11 BP 128 / 59; Pulse 56; Resp 18; Pulse Ox 96% on 3 lpm NC; cp4 02:51 BP 142 / 56; Pulse 57; Resp 18; Pulse Ox 96% on 3 lpm NC; cp4 04:14 BP 117 / 74; Pulse 62; Resp 18; Pulse Ox 96% on 3 lpm NC; cp4 06/02 21:41 Body Mass Index 41.57 (99.79 kg, 154.94 cm) cp4 06/02 21:41 Pain Scale: Adult cp4 Tatum Coma Score: 06/02 23:57 Eye Response: spontaneous(4). Motor Response: localizes pain(5). Verbal Response: sp4 confused(4). Total: 13. ED Course: 21:40 Patient arrived in ED. cp4 21:41 Hermelinda Mixon is Primary Nurse. cp4 21:42 Triage completed. cp4 21:42 Arm band placed on right wrist. Patient placed in an exam room, on a stretcher. cp4 21:43 Milo Zapata MD is Attending Physician. sp4 21:45 Bed in low position. Call light in reach. Side rails up X2. cp4 21:45 No provider procedures requiring assistance completed. Maintain EMS IV. Dressing cp4 intact. Good blood return noted. Site clean \T\ dry. Gauge \T\ site: 20 RAC. 22:16 XRAY Chest (1 view) In Process Unspecified. EDMS 06/03 00:44 CT Chest Abdomen Pelvis W/O Contrast In Process Unspecified. EDMS 01:41 Luther Suarez MD is Hospitalizing Provider. sp4 04:15 Provided Education on: admission. cp4 04:15 Patient admitted, IV remains in place. cp4 Administered Medications: 00:13 Drug: fentaNYL (PF) IVP 25 mcg IVP once Route: IVP; Site: right wrist; cp4 02:56 Follow up: Response: No adverse reaction; Pain is decreased cp4 00:14 Drug: Ondansetron IVP 4 mg IVP once; over 2 minutes Route: IVP; Site: right wrist; cp4 02:56 Follow up: Response: No adverse reaction cp4 00:20 Drug: Rocephin - Rocephin (cefTRIAXone) IVPB 1 grams IVPB once over 30 mins; (mix in 50 cp4 mL NS) Route: IVPB; Infused Over: 30 mins; Site: right antecubital; 00:20 Follow up: IV Status: Infusion continued cp4 00:20 Drug: vancoMYCIN IVPB 1 grams IVPB once over 2 hrs Route: IVPB; Infused Over: 2 hrs; cp4 Site: right antecubital; 01:38 Follow up: IV Status: Completed infusion cp4 01:44 Drug: Furosemide IVP 40 mg IVP once; give over 2 minutes Route: IVP; Site: right cp4 forearm; 02:55 Follow up: Response: No adverse reaction cp4 Medication: 06/02 21:45 VIS not applicable for this client. cp4 Outcome: 06/03 01:42 Decision to Hospitalize by Provider. sp4 04:15 Admitted to Med/surg accompanied by tech, via stretcher, room 425, with oxygen, with cp4 chart, 04:15 Condition: stable 04:15 Instructed on the need for admit, 04:16 Patient left the ED. cp4 Signatures: Dispatcher [employer] Milo Augustine MD MD sp4 Hermelinda Mixon cp4
--- NOTE | 2024-06-03 01:43 | EDPHYS ---
Physician Documentation [facility] Name: Kaitlynn Snider Age: 79 yrs Sex: Female : 1945 Arrival Date: 06/02/2024 Time: 21:39 Bed 17 Private MD: ED Physician Milo Zapata HPI: 06/02 21:43 This 79 yrs old Female presents to ER via EMS with complaints of Nose Bleed. 4 23:51 79-year-old female presents with acute nosebleed and hypoxemia. Patient presents from [address] home . Patient has signs of dementia and is not able to communicate. It was reported that patient developed right sided nosebleed at the [facility] associated with hypoxemia. Patient arrives with EMS with nasal cannula in place. EMS reported nasal cannula with dried up the bleeding and there is no active bleeding at this time.. 23:53 Patient's past medical history includes -patient is full code at this time, history of [facility] anxiety, history of dementia, history of immobility, history of hyperlipidemia, long-term anticoagulation, muscle wasting and atrophy, kidney stones, type 2 diabetes, protein calorie malnutrition, COPD, diabetes with diabetic neuropathy, dysphagia, hypertension, irritable bowel syndrome, major depressive disorder, sleep apnea, osteoarthritis, systolic heart failure, UTIs. Patient's medications include Tylenol with codeine as needed, zinc sulfate as needed, vitamin C, docusate cetirizine 10 mg daily, aspirin 81 mg daily, allopurinol 300 mg daily, doxazosin 4 mg daily, escitalopram 10 mg daily, famotidine 20 mg daily, losartan 50 mg daily, nebivolol 10 mg daily, cholecalciferol 1000 units daily, Eliquis 2.5 mg twice a day, montelukast 10 mg daily, multivitamin 1 tablet daily, insulin glargine 15 units daily, Humalog sliding scale insulin, hydralazine 25 daily, hydralazine as needed, gabapentin twice a day, buspirone 10 mg 3 times a day clonidine 0.1 mg every 12, ibuprofen as needed every 8 hours. Based on [facility] record patient is on daily aspirin 81 mg daily, and Eliquis 2.5 mg twice a day.. 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 - Infectious Disease History:: Denies. - Social history:: Smoking status: unknown. - Family history:: not pertinent. ROS: 23:52 Constitutional: Negative for fever, chills, and weight loss, positive for nosebleed sp4 positive for hypoxemia positive for shortness of breath. Full ROS not available 23:52 All other systems are negative, 23:52 Unable to obtain ROS due to baseline dementia, Exam: 23:57 Constitutional: Elderly debilitated female signs of moderate to advanced dementia, sp4 communication problem, does follow basic commands, there is mild to moderate right-sided epistaxis. Moderate to severe physical debility Head/Face: Normocephalic, atraumatic. Eyes: Pupils equal round and reactive to light, extra-ocular motions intact. Lids and lashes normal. Conjunctiva and sclera are not injected. Cornea within normal limits. Periorbital areas with no swelling, redness, or edema. ENT: Nares patent. No nasal discharge, no septal abnormalities noted. Tympanic membranes are normal and external auditory canals are clear. Oropharynx with no redness, swelling, or masses, exudates, or evidence of obstruction, uvula midline. Mucous membranes moist. Neck: Trachea midline, no thyromegaly or masses palpated, and no cervical lymphadenopathy. Supple, full range of motion without nuchal rigidity, or vertebral point tenderness. Chest/axilla: Normal chest wall appearance and motion. Nontender with no deformity. No lesions are appreciated. Cardiovascular: Regular rate and rhythm with a normal S1 and S2. No gallops, murmurs, or rubs. Normal PMI, no JVD. No pulse deficits. Respiratory: Lungs have equal breath sounds bilaterally, clear to auscultation and percussion. No rales, rhonchi or wheezes noted. No increased work of breathing, no retractions or nasal flaring. Abdomen/GI: Soft, with normal bowel sounds. No distension or tympany. No guarding or rebound. No evidence of tenderness throughout. Back: No spinal tenderness. No costovertebral tenderness. Skin: Warm, dry with normal turgor. Normal color with no rashes, no lesions, and no evidence of cellulitis. MS/ Extremity: Pulses equal, no cyanosis. Neurovascular intact. Full, normal range of motion. Neuro: Awake and alert, oriented to self only, moderate to advanced dementia on exam, no lateralizing deficits perceived. Otherwise exam is limited secondary to dementia. 06/03 03:12 ECG was reviewed by the Attending Physician. EKG at 2104 sinus rhythm rate 66 otherwise sp4 normal EKG, muscle tremor artifact. Vital Signs: 06/02 21:41 BP 117 / 45; Pulse 72; Resp 18; Temp 98.1; Pulse Ox 95% on 3 lpm NC; Weight 99.79 kg; cp4 Height 5 ft. 1 in. ; Pain 0/10; 22:35 BP 116 / 42; Pulse 65; Resp 18; Pulse Ox 98% on 3 lpm NC; 4 06/03 01:11 BP 128 / 59; Pulse 56; Resp 18; Pulse Ox 96% on 3 lpm NC; cp4 02:51 BP 142 / 56; Pulse 57; Resp 18; Pulse Ox 96% on 3 lpm NC; cp4 04:14 BP 117 / 74; Pulse 62; Resp 18; Pulse Ox 96% on 3 lpm NC; cp4 06/02 21:41 Body Mass Index 41.57 (99.79 kg, 154.94 cm) 4 06/02 21:41 Pain Scale: Adult cp4 Tatum Coma Score: 06/02 23:57 Eye Response: spontaneous(4). Motor Response: localizes pain(5). Verbal Response: sp4 confused(4). Total: 13. Procedures: 06/03 01:39 Epistaxis treatment: A moderate amount of bleeding noted from right nare. Treated using sp4 rhino rocket, Bleeding stopped. Bleeding resolved with insertion of Rhino Rocket.. MDM: 06/02 21:43 Medical Screening Exam initiated 4 06/03 00:03 ED course: EXAM: Chest Single View HISTORY: 79 years Female hypxemia COMPARISON: 4 05/20/2024 FINDINGS: LUNGS/PLEURA: Similar diffuse prominence of the pulmonary interstitium. Small left pleural effusion. CARDIAC/MEDIASTINUM: Stable enlargement. UPPER ABDOMEN: No significant abnormality. BONES: No acute abnormality. LINES/TUBES/OTHER: N/A IMPRESSION: Pulmonary edema, similar to 05/20/2024. . 01:37 Differential diagnosis: nasal fracture, trauma, sinusitis, epistaxis r/t trauma, sp4 spontaneous epistaxis. Data reviewed: vital signs, nurses notes, EMS record, lab test result(s), EKG, radiologic studies, CT scan, plain films. Consideration of Admission/Observation Escalation of care including admission/observation considered. ED course: Patient was last admission at [id number] for left femur fracture, chronic kidney disease, congestive heart failure, COPD, blood loss anemia, essential hypertension . Patient is released 05/24/2024. Patient underwent open reduction internal fixation for left intertrochanteric femur fracture, patient was discharged with docusate, apixaban 2.5 mg p.o. twice daily, and hydrocodone as needed for pain.. 01:40 Management of patient was discussed with the following: Hospitalist: Dr. Erick Sloan sp4 hospitalist. Lineworker: Dr. Naomi Cole MD . ED course: Patient stable for admission secondary to pulmonary edema, hypoxemia hypercarbia, pCO2 56, associated history of right epistaxis secondary to apixaban.. Additionally CHF exacerbation. And moderate to large size left pleural effusion.. 02:05 ED course: CLINICAL HISTORY: Pneumonia. COMPARISON: CTAbdomen Pelvis 02/11/2024. sp4 TECHNIQUE: CT CHESTABDOMEN PELVIS WITHOUT IV CONTRAST on 06/02/2024 11:43 PM CDT This exam was performed according to our departmental dose-optimization program, which includes automated exposure control, adjustment of the mA and/or kV according to patient size and/or use of iterative reconstruction technique. FINDINGS: Chest: The heart is enlarged. There is no pericardial effusion. Intrathoracic lymph nodes are not enlarged. There are small bilateral pleural effusions. Central airways are patent. There is moderate airspace disease throughout the left lower lobe as well as the left upper lobe. There are vague groundglass opacity scattered throughout the right lung. Abdomen: The liver is normal in appearance. There is no biliary dilatation. Cholecystectomy was performed. The pancreas and spleen are normal in appearance. Adrenal glands are normal. There is mild to moderate bilateral renal atrophy. There are 2 lower pole right renal calculi measuring up to 2 mm. There is a questionable 2 mm proximal right ureteral calculus without hydronephrosis. Abdominal aorta is mildly calcified without aneurysm. There is no free air. There is no retroperitoneal adenopathy. Pelvis: There is mild left colonic diverticulosis. Urinary bladder is unremarkable. There is no free fluid. Uterus is poorly seen. Appendix is not well seen. Skeleton: There are postoperative changes of the proximal left femur. IMPRESSION: Predominantly mid and lower left lung pneumonia. Questionable nonobstructing proximal right ureteral calculus. Electronically signed by: Maninder Wise MD 06/03/2024 . 06/02 21:43 Order name: Basic Metabolic Panel; Complete Time: 23:44 sp4 06/02 21:43 Order name: CBC with Diff; Complete Time: 23:44 4 06/02 21:43 Order name: LFT's; Complete Time: 23:44 sp4 06/02 21:43 Order name: Magnesium; Complete Time: 23:44 4 06/02 21:43 Order name: NT PRO-BNP; Complete Time: 23:44 4 06/02 21:43 Order name: PT-INR; Complete Time: 23:44 sp4 06/02 21:43 Order name: Troponin HS; Complete Time: 23:44 4 06/02 22:26 Order name: Manual Differential; Complete Time: 23:44 EDLA 06/02 23:44 Order name: Type And Screen 4 06/02 23:45 Order name: ABG 4 06/02 23:45 Order name: Blood Culture Adult (2) 4 06/03 01:11 Order name: ABO/RH no charge; Complete Time: 01:30 EDMS 06/03 02:58 Order name: CBC with Automated Diff EDMS 06/03 02:58 Order name: CBC with Automated Diff EDMS 06/03 02:58 Order name: Comprehensive Metabolic Panel MS 06/03 02:58 Order name: Comprehensive Metabolic Panel [facility] 06/02 21:43 Order name: XRAY Chest (1 view); Complete Time: 23:44 4 06/02 23:43 Order name: CT Chest Abdomen Pelvis W/O Contrast 4 06/02 21:43 Order name: Cardiac monitoring; Complete Time: 21:56 4 06/02 21:43 Order name: EKG - Nurse/Tech; Complete Time: 21:56 sp4 06/02 21:43 Order name: IV Saline Lock; Complete Time: 21:56 sp4 06/02 21:43 Order name: Labs collected and sent; Complete Time: 21:56 sp4 06/02 21:43 Order name: O2 Per Protocol; Complete Time: 21:56 sp4 06/02 21:43 Order name: O2 Sat Monitoring; Complete Time: 21:56 sp4 06/02 23:45 Order name: Misc. Order: Rhino rocket placed by ; Complete Time: 23:52 sp4 06/03 01:34 Order name: Misc. Order: Pure wic for urine; Complete Time: 01:38 sp4 EC/30 21:04 Rate is 66 beats/min. Rhythm is regular, Normal Sinus Rhythm. QRS [place] is Normal. [place] sp4 interval is normal. QRS interval is normal. No ST changes noted. Clinical impression: No evidence of ischemia. Interpreted by me. Reviewed by me. Administered Medications: 06/03 00:13 Drug: fentaNYL (PF) IVP 25 mcg IVP once Route: IVP; Site: right wrist; cp4 02:56 Follow up: Response: No adverse reaction; Pain is decreased cp4 00:14 Drug: Ondansetron IVP 4 mg IVP once; over 2 minutes Route: IVP; Site: right wrist; cp4 02:56 Follow up: Response: No adverse reaction cp4 00:20 Drug: Rocephin - Rocephin (cefTRIAXone) IVPB 1 grams IVPB once over 30 mins; (mix in 50 cp4 mL NS) Route: IVPB; Infused Over: 30 mins; Site: right antecubital; 00:20 Follow up: IV Status: Infusion continued cp4 00:20 Drug: vancoMYCIN IVPB 1 grams IVPB once over 2 hrs Route: IVPB; Infused Over: 2 hrs; cp4 Site: right antecubital; 01:38 Follow up: IV Status: Completed infusion cp4 01:44 Drug: Furosemide IVP 40 mg IVP once; give over 2 minutes Route: IVP; Site: right cp4 forearm; 02:55 Follow up: Response: No adverse reaction cp4 Disposition Summary: 06/03/24 01:42 Hospitalization Ordered Notes: Hospitalization Status: Inpatient Admission sp4 Provider: Luther Suarez sp4 Location: Telemetry/MedSurg (Inpatient) sp4 Condition: Fair sp4 Problem: new sp4 Symptoms: have improved sp4 Bed/Room Type: Standard sp4 Room Assignment: 425(06/03/24 03:06) km Diagnosis - Epistaxis sp4 - Acute on chronic combined systolic (congestive) and diastolic (congestive) heart sp4 failure - Pleural effusion, not elsewhere classified sp4 - Left large pleural effusion, acute CHF exacerbation, acute pulmonary edema, acute sp4 right epistaxis secondary to chronic anticoagulation. Forms: - Medication Reconciliation Form sp4 - SBAR form sp4 - Leadership Thank You Letter sp4 Signatures: Dispatcher [employer] EDMilo Dubon MD MD sp4 Potter, Christina cp4 Forrester, Kelsey Maroul [facility] Corrections: (The following items were deleted from the chart) 06/02 21:44 21:44 BASIC METABOLIC PANEL+C.LAB.BRZ ordered. EDMS EDMS 21:44 21:44 CBC+H.LAB.BRZ ordered. EDMS EDMS 21:44 21:44 HEPATIC FUNCTION+C.LAB.BRZ ordered. EDMS EDMS 21:44 21:44 MAGNESIUM+C.LAB.BRZ ordered. EDMS EDMS 21:44 21:44 PROBNP+C.LAB.BRZ ordered. EDMS EDMS 21:44 21:44 PROTIME (+INR)+COAG.LAB.BRZ ordered. EDMS EDMS 21:44 21:44 Troponin High Sensitivity+C.LAB.BRZ ordered. EDMS EDMS 21:44 21:44 Chest Single View+RAD.RAD.BRZ ordered. EDMS EDMS 23:45 23:45 TYPE AND SCREEN+BB.LAB.BRZ ordered. EDMS EDMS 23:46 23:46 BLOOD CULTURE*+BA.LAB.BRZ ordered. EDMS EDMS 23:46 23:46 TYPE AND SCREEN+BB.LAB.BRZ ordered. EDMS EDMS 06/03 03:06 01:42 sp4 [facility]
--- NOTE | 2024-06-03 02:04 | RAD REPORT ---
CLINICAL HISTORY: Pneumonia. COMPARISON: CT Abdomen Pelvis 02/11/2024. TECHNIQUE: CT CHEST ABDOMEN PELVIS WITHOUT IV CONTRAST on 06/02/2024 11:43 PM CDT This exam was performed according to our departmental dose-optimization program, which includes autom ated exposure control, adjustment of the mA and/or kV according to patient size and/or use of iterative reconstruction technique. FINDINGS: Chest: The heart is enlarged. There is no pericardial effusion. Intrathoracic lymph nodes are not enl arged. There are small bilateral pleural effusions. Central airways are patent. There is moderate airspace d isease throughout the left lower lobe as well as the left upper lobe. There are vague groundglass opacity scattered throughout the right lung. Abdomen: The liver is normal in appearance. There is no biliary dilatation. Cholecystectomy was perfo rmed. The pancreas and spleen are normal in appearance. Adrenal glands are normal. There is mild to moderate bilateral renal atrophy. There are 2 lower pole right renal calculi measuring up to 2 mm. Th ere is a questionable 2 mm proximal right ureteral calculus without hydronephrosis. Abdominal aorta is mildly calcified without aneurysm. There is no free air. There is no retroperitone al adenopathy. Pelvis: There is mild left colonic diverticulosis. Urinary bladder is unremarkable. There is no free fluid. Uterus is poorly seen. Appendix is not well seen. Skeleton: There are postoperative changes of the proximal left femur. IMPRESSION: Predominantly mid and lower left lung pneumonia. Questionable nonobstructing proximal right ureteral calculus. Electronically signed by: Maninder Wise MD 06/03/2024 01:52 AM CDT RP Due to temporary technical issues with the PACS/[employer] reporting system, reports are being bozena d by the in-house radiologist without review as a courtesy to ensure prompt reporting the interpreting radiologist is fully responsible for the content of the report. Transcribed Date/Time: 06/03/2024 2:04 AM
[2024-06-03] MEDS ORDERED: GLUCAGON 1 MG/VIAL IM PRN (02:53)
[2024-06-03] MEDS ORDERED: D10W 125 ML IV PRN (02:53)
--- NOTE | 2024-06-03 02:53 | P.HP ---
Certification for Inpatient Patient admitted to: Inpatient With expected LOS: >2 Midnights Practitioner: I am a practitioner with admitting privileges, knowledge of patient current condition, hospital course, and medical plan of care. Services: Services provided to patient in accordance with Admission requirements found in Title 42 Section 412.3 of the Code of Federal Regulations Patient History Date of Service: 06/03/24 Reason for admission: epistaxis History of Present Illness: 79-year-old female with past medical history of chronic kidney disease, osteoarthritis, CKD, diabetes, hyperlipidemia, hypertension, sleep apnea, cognitive communication disorder presents from [facility] with complaints of nosebleed. Patient was noted to be on aspirin and Eliquis. She was requiring oxygen. Imaging also showed pulm edema and concern for pneumonia. A Rhino Rocket was placed bleeding had stopped Allergies No Known Allergies Allergy (Unverified 05/23/21 06:12) Home Medications: Allopurinol 300 mg PO DAILY AT SUPPER 09/17/23 Aspirin [Vazalore] 81 mg PO DAILY 09/17/23 Buspirone HCl [Buspar] 10 mg PO TID 09/17/23 Cetirizine HCl [Zyrtec*] 10 mg PO DAILY 09/17/23 Cholecalciferol (Vitamin D3) [Vitamin D3] 1,000 units PO NOON 09/17/23 Doxazosin Mesylate 4 mg PO BID 09/17/23 Escitalopram [Lexapro*] 10 mg PO DAILY 09/17/23 Gabapentin [Neurontin*] 300 mg PO BID 09/17/23 Hydralazine HCl 75 mg PO TID 09/17/23 Insulin Glargine,Hum.rec.anlog [Lantus] 34 units SQ DAILY 09/17/23 Magnesium Oxide [Magnesium] 400 mg PO NOON 09/17/23 Montelukast [Singulair*] 10 mg PO DAILY 09/17/23 Losartan Potassium [Cozaar*] 50 mg PO BID 11/22/23 Nebivolol HCl [Bystolic*] 10 mg PO DAILY tab 11/22/23 cloNIDine HCL [Catapres*] 0.1 mg PO BID PRN 30 Days #60 tab 11/22/23 Ipratropium Neb [Atrovent*] 0.2 mg IH Q6H PRN 30 Days #120 ml 10/18/24 Acetaminophen [Tylenol] 650 mg PO Q6HP PRN 05/20/24 Famotidine 20 mg PO DAILY 05/20/24 Guaifenesin [Cough Syrup] 10 ml PO Q6HP PRN 05/20/24 Ibuprofen 400 mg PO Q8HP PRN 05/20/24 Insulin Lispro See Protocol SQ ACHS 05/20/24 Loperamide [Imodium*] 2 mg PO Q4HP PRN 05/20/24 Multivitamin [Multiple Vitamins] 1 each PO DAILY 05/20/24 Apixaban [Eliquis] 2.5 mg PO BID #60 tablet 05/24/24 Docusate [Colace Cap*] 200 mg PO DAILY PRN #30 cap 05/24/24 Hydrocodone 5/APAP 325 [[place] 5/325*] 1 tab PO Q4H PRN #15 tab 05/24/24 - Past Medical/Surgical History Diabetic: Yes -: HTN -: HLD -: COPD-with home O2 -: DM II -: Diastolic CHF -: IBS -: depression -: osteoarthritis -: Left hip fracture -: tonsilectomy -: R leg plates/pin -: dilation and curettage Psychosocial/ Personal History: patient lives at [place] - Family History Mother -: Lung disease Father -: Diabetes - Social History Alcohol use: No CD- Drugs: No Caffeine use: No Review of Systems 10-point ROS is otherwise unremarkable Physical Examination - Physical Exam General: In no apparent distress, Other (grunting) HEENT: Atraumatic, Normocephalic, Other (dry blood around nares) Respiratory: Normal air movement, Diminished Cardiovascular: Normal pulses, Regular rate/rhythm Gastrointestinal: Soft and benign, Non-distended Musculoskeletal: No contractures - Studies Laboratory Data (last 24 hrs) 06/02/24 06/02/24 06/02/24 21:52 21:52 21:52 WBC 10.50 Hgb 7.3 L Hct 23.4 L Plt Count 195 PT 16.6 H INR 1.48 Sodium 137 Potassium 4.5 BUN 61 H Creatinine 1.81 H Glucose 289 H Magnesium 2.5 H Total Bilirubin 0.4 AST < 10 L ALT < 14 Alkaline Phosphatase 103 Assessment and Plan - Problems (Diagnosis) (1) Epistaxis Current Visit: Yes Status: Acute (2) Anemia Current Visit: Yes Status: Acute (3) Pneumonia Current Visit: Yes Status: Acute (4) Congestive heart failure Current Visit: No Status: Acute (5) Pleural effusion Current Visit: No Status: Acute - Plan epistaxis --on eliquis and asa --stopped with rhino rocket --ent called in ED anemia --monitor --transfuse for hgb < 7 pulmonary edema --hx of chf --continue lasix --check echo chf --await med rec pneumonia --rocephin, and azithromycin vanc given in ed ckd --renal dose medication IDDM --fsbs, ssi HTN HLD --await med rec DVT:SCDs - Advance Directives Does patient have a Living Will: No Does patient have a Durable POA for Healthcare: No
[2024-06-03] MEDS: AZITHROMYCIN 1 GM PACKET PO ONE (03:00)
[2024-06-03] MEDS: INSULIN REGULAR (HUMAN) 100 UNIT/ML SQ SCH (07:30)
[2024-06-03] MEDS: FUROSEMIDE 40 MG/4 ML VIAL IV SCH (07:58)
[2024-06-03] MEDS: CEFTRIAXONE 1,000 MG in NA CHLORIDE 0.9% 50 ML IVPB SCH (07:58)
[2024-06-03 08:39] LABS: Hematocrit 23.2 % (36.0-45.0); Hemoglobin 7.2 g/dL (12.0-15.0); MCH 29.1 pg (27.0-35.0); MCHC 31.2 g/dL (32.0-36.0); MCV 93.3 fL (80-100); MPV 10.4 fL (7.6-11.3); Platelets 201 thou/uL (152-406); RBC Red Blood Cell Count 2.48 M/uL (3.86-4.86); Red Cell Distribution Width 17.5 % (12.1-15.2)
--- NOTE | 2024-06-03 08:52 | P.PN ---
Date of Service: 06/03/24 Subjective: intermittently moaning and groaning responding to a few questions appropriately reports worsening abdominal pains over the last 3 months per patient, and at other times she reports she not in any pain. hip pain is not worse per patient, surgical site is healing well ROS: 10 point ROS as noted above, otherwise negative Physical Exam GEN: awake, hard of hearing, aox1 HEENT: dried blood in right nare CV: Regular rate and rhythm, no edema Pulm: Nonlabored respirations on 3L NC, diminished at bases bilaterally ABD: soft, mild discomfort on palpation of abdomen Integumentary: well healing left surgical incision with thony in place Neuro: Normal speech, normal affect Problem List: Epistaxis Acute on chronic anemia Abdominal pain Pneumonia Left femur fracture s/p recent ORIF (05/21/24) chronic diastolic CHF Chronic COPD (has home O2) CKD Dementia / Cognitive communication disorder Obstructive sleep apnea Hypertension Hyperlipidemia IDDM2 Epistaxis Acute on chronic anemia Abdominal pain on admission, presents from [facility] with right sided nosebleed, hypoxemia. Patient is a poor historian. Most info obtained from chart review. Does have some dementia / cognitive communication disorder per chart Nosebleed resolved with rhinorocket in ED. No further bleeding. Given IV rocephin/Vanc, IV lasix 40 mg in ED. 06/03 - Reports worsening abdominal pains over the last 3 months per patient, and at other times she reports she not in any pain. Mild discomfort noted on palpation of abdomen. Hgb 7.3 on admission. LFTs wnl she did have recent ORIF surgery on 05/21 and Hgb was noted to slowly downtrend to 7s post op Daily labs. Trend H&H. Monitor on telemtry. ENT consult Pneumonia Patient reportedly hypoxic at [facility] prior to admission. 06/02 - CT chest: Predominantly mid and lower left lung pneumonia. Questionable nonobstructing proximal right ureteral calculus follow blood cultures wean oxygen as tolerated. Reportedly has Home O2 Check ABG 06/03 - continue empiric rocephin (06/03-) Pulm consult Leukocytosis 10.5 -> 16.7. Left femur fracture s/p recent ORIF (05/21/24) Recent admission for left femur fracture ~2 weeks ago. Underwent ORIF with Dr. Levin on 05/21/24 Surgical incision is healing well with thony in place. Patient denies any worsening pain near surgical site. pain control PT once more alert/awake and stable. chronic diastolic CHF Chronic COPD (has home O2) confirm home meds, restart as appropriate wean oxygen as tolerated BNP 7k IV lasix 40 mg daily CKD3 Monitor renal function Monitor and replete electrolytes as needed Creatinine improved compared to last hospitalization. Nephrolgy consult Dementia / Cognitive communication disorder Obstructive sleep apnea Hypertension Hyperlipidemia confirm home meds, restart as appropriate IDDM2 accu-cheks, SSI VTE: SCD Code: Full Dispo: Home Time Spent Managing Pts Care (In Minutes): 55
[2024-06-03 08:56] LABS: AST/SGOT 11 U/L (15-37); Albumin 2.6 g/dL (3.4-5.0); Albumin/Globulin Ratio 0.7 (1.1-1.8); Alkaline Phosphatase 94 U/L (45-117); Anion Gap 9.8 mEq/L (5.0-15.0); BUN Blood Urea Nitrogen 78 mg/dL (7-18); Bicarbonate 28 mEq/L (21-32); Bilirubin Total 0.4 mg/dL (0.2-1.0); Glomerular Filtration Rate 29 ml/min (=/>90); Glucose Level 224 mg/dL (74-106); Magnesium 2.2 mg/dL (1.6-2.4); Potassium 4.8 mEq/L (3.5-5.1); Protein, Total 6.6 g/dL (6.4-8.2); Sodium Level 140 mEq/L (136-145)
[2024-06-03 09:01] LABS: ALT/SGPT < 14 U/L (13-56)
--- NOTE | 2024-06-03 10:57 | P.CNS ---
Date of Consult: 06/03/24 Reason for Consult: RAYNE/ CKD Requesting Physician: Barrington Fraser Chief Complaint: epistaxis History of Present Illness: 79-year-old female with past medical history of chronic kidney disease, osteoarthritis, CKD, diabetes, hyperlipidemia, hypertension, sleep apnea, cognitive communication disorder presents from [facility] with complaints of nosebleed. Patient was noted to be on aspirin and Eliquis. She was requiring oxygen. Imaging also showed pulm edema and concern for pneumonia. A Rhino Rocket was placed bleeding had stopped 21:43 This 79 yrs old Female presents to ER via EMS with complaints of Nose Bleed. sp4 23:51 79-year-old female presents with acute nosebleed and hypoxemia. Patient presents from [address] Patient has signs of dementia and is not able to communicate. It was reported that patient developed right sided nosebleed at the assisted associated with hypoxemia. Patient arrives with EMS with nasal cannula in place. EMS reported nasal cannula with dried up the bleeding and there is no active bleeding at this time.. 23:53 Patient's past medical history includes -patient is full code at this time, history of sp4 anxiety, history of dementia, history of immobility, history of hyperlipidemia, long-term anticoagulation, muscle wasting and atrophy, kidney stones, type 2 diabetes, protein calorie malnutrition, COPD, diabetes with diabetic neuropathy, dysphagia, hypertension, irritable bowel syndrome, major depressive disorder, sleep apnea, osteoarthritis, systolic heart failure, UTIs. Patient's medications include Tylenol with codeine as needed, zinc sulfate as needed, vitamin C, docusate cetirizine 10 mg daily, aspirin 81 mg daily, allopurinol 300 mg daily, doxazosin 4 mg daily, escitalopram 10 mg daily, famotidine 20 mg daily, losartan 50 mg daily, nebivolol 10 mg daily, cholecalciferol 1000 units daily, Eliquis 2.5 mg twice a day, montelukast 10 mg daily, multivitamin 1 tablet daily, insulin glargine 15 units daily, Humalog sliding scale insulin, hydralazine 25 daily, hydralazine as needed, gabapentin twice a day, buspirone 10 mg 3 times a day clonidine 0.1 mg every 12, ibuprofen as needed every 8 hours. Based on assisted record patient is on daily aspirin 81 mg daily, and Eliquis 2.5 mg twice a day.. Limited HPI/ ROS due to the patient being a poor historian. Moaning during the evaluation. Allergies No Known Allergies Allergy (Unverified 05/23/21 06:12) Home medications list reviewed: Yes Home Medications: Allopurinol 300 mg PO DAILY AT SUPPER 09/17/23 Aspirin [Vazalore] 81 mg PO DAILY 09/17/23 Buspirone HCl [Buspar] 10 mg PO TID 09/17/23 Cetirizine HCl [Zyrtec*] 10 mg PO DAILY 09/17/23 Cholecalciferol (Vitamin D3) [Vitamin D3] 1,000 units PO NOON 09/17/23 Doxazosin Mesylate 4 mg PO BID 09/17/23 Escitalopram [Lexapro*] 10 mg PO DAILY 09/17/23 Gabapentin [Neurontin*] 300 mg PO BID 09/17/23 Hydralazine HCl 75 mg PO TID 09/17/23 Insulin Glargine,Hum.rec.anlog [Lantus] 15 units SQ DAILY 09/17/23 Magnesium Oxide [Magnesium] 400 mg PO NOON 09/17/23 Montelukast [Singulair*] 10 mg PO DAILY 09/17/23 Losartan Potassium [Cozaar*] 50 mg PO BID 11/22/23 cloNIDine HCL [Catapres*] 0.1 mg PO BID PRN 30 Days #60 tab 11/22/23 Ipratropium Neb [Atrovent*] 0.2 mg IH Q6H PRN 30 Days #120 ml 12/22/23 Acetaminophen [Tylenol] 650 mg PO Q6HP PRN 05/20/24 Famotidine 20 mg PO DAILY 05/20/24 Ibuprofen 400 mg PO Q8HP PRN 05/20/24 Insulin Lispro See Protocol SQ ACHS 05/20/24 Multivitamin [Multiple Vitamins] 1 each PO DAILY 05/20/24 Apixaban [Eliquis] 2.5 mg PO BID #60 tablet 05/24/24 Docusate [Colace Cap*] 200 mg PO DAILY PRN #30 cap 05/24/24 Acetaminophen with Codeine [Acetaminophen-Cod #3 Tablet] 1 tab PO Q6HP PRN 06/03/24 Ascorbic Acid [Vitamin C] 500 mg PO BID 06/03/24 Calcium Carbonate [Calcium] 500 mg PO DAILY 06/03/24 Nebivolol HCl [Bystolic] 10 mg PO DAILY 06/03/24 Protein Supplement [Promod] 30 ml PO BID 06/03/24 Zinc Sulfate [Zinc Sulfate*] 220 mg PO DAILY 06/03/24 - Past Medical/Surgical History Diabetic: Yes -: HTN -: HLD -: COPD-with home O2 -: DM II -: Diastolic CHF -: IBS -: depression -: osteoarthritis -: Left hip fracture -: tonsilectomy -: R leg plates/pin -: dilation and curettage -: Lefthip ORIF Psychosocial/ Personal History: patient lives at [place] - Family History Mother Medical History: Lung disease Father Medical History: Diabetes - Social History Smoking Status: Unknown if ever smoked Alcohol use: No CD- Drugs: No Caffeine use: No Place of Residence: [facility] Review of Systems 10-point ROS is otherwise unremarkable General: Weakness, Malaise Gastrointestinal: Abdominal Pain Physical Examination Temp Pulse Resp BP Pulse Ox 98.4 F 68 14 127/60 94 06/03/24 08:00 06/03/24 08:00 06/03/24 08:00 06/03/24 08:00 06/03/24 08:00 General: Cooperative, Obese HEENT: Atraumatic Neck: Supple Respiratory: Diminished Cardiovascular: Regular rate/rhythm, Edema Gastrointestinal: Distended, Tenderness Musculoskeletal: No clubbing, No contractures Integumentary: No rashes, No cyanosis Neurological: Normal speech Laboratory Data (last 24 hrs) 06/02/24 06/02/24 06/02/24 21:52 21:52 21:52 WBC 10.50 Hgb 7.3 L Hct 23.4 L Plt Count 195 PT 16.6 H INR 1.48 Sodium 137 Potassium 4.5 BUN 61 H Creatinine 1.81 H Glucose 289 H Magnesium 2.5 H Total Bilirubin 0.4 AST < 10 L ALT < 14 Alkaline Phosphatase 103 Imagings Data: EXAM: Chest Single View HISTORY: 79 years Female hypxemia COMPARISON: 05/20/2024 FINDINGS: LUNGS/PLEURA: Similar diffuse prominence of the pulmonary interstitium. Small left pleural effusion. CARDIAC/MEDIASTINUM: Stable enlargement. UPPER ABDOMEN: No significant abnormality. BONES: No acute abnormality. LINES/TUBES/OTHER: N/A IMPRESSION: Pulmonary edema, similar to 05/20/2024. Reason for Exam: pneumonia Report Status: Draft CLINICAL HISTORY: Pneumonia. COMPARISON: CT Abdomen Pelvis 02/11/2024. TECHNIQUE: CT CHEST ABDOMEN PELVIS WITHOUT IV CONTRAST on 06/02/2024 11:43 PM CDT This exam was performed according to our departmental dose-optimization program, which includes automated exposure control, adjustment of the mA and/or kV according to patient size and/or use of iterative reconstruction technique. FINDINGS: Chest: The heart is enlarged. There is no pericardial effusion. Intrathoracic lymph nodes are not enlarged. There are small bilateral pleural effusions. Central airways are patent. There is moderate airspace disease throughout the left lower lobe as well as the left upper lobe. There are vague groundglass opacity scattered throughout the right lung. Abdomen: The liver is normal in appearance. There is no biliary dilatation. Cholecystectomy was performed. The pancreas and spleen are normal in appearance. Adrenal glands are normal. There is mild to moderate bilateral renal atrophy. There are 2 lower pole right renal calculi measuring up to 2 mm. There is a questionable 2 mm proximal right ureteral calculus without hydronephrosis. Abdominal aorta is mildly calcified without aneurysm. There is no free air. There is no retroperitoneal adenopathy. Pelvis: There is mild left colonic diverticulosis. Urinary bladder is unremarkable. There is no free fluid. Uterus is poorly seen. Appendix is not well seen. Skeleton: There are postoperative changes of the proximal left femur. IMPRESSION: Predominantly mid and lower left lung pneumonia. Questionable nonobstructing proximal right ureteral calculus. Conclusions/Impression: Stage I RAYNE may be CRS CKD IIIa -No NSAIDs -Continue diuresis Nephrolithiasis with possible right proximal ureteral stone -Repeat Renal/ Bladder US HTN with CKD/ CHF -Restart antihypertensives as indicated Diastolic CHF, A/C -Continue Lasix DM II with CKD -RISS Hypoalbuminemia -Continue Glucerna Anemia in chronic illness -Monitor H&H -PRBC prn Hospitalist and ER notes reviewed Case reviewed with Dr. Fraser Thank you kindly for the consultation
--- NOTE | 2024-06-03 11:17 | EKG ---
Test Date: 2024-06-02 Test Time: 21:04:54 Neurosurgery Physician: BLAIR MEASUREMENT RESULTS: Intervals: Rate: 66 FL: 220 QRSD: 96 QT: 462 QTc: 484 [place]: P: 89 FL: 220 QRS: -51 T: 73 INTERPRETIVE STATEMENTS: Sinus rhythm with 1st degree AV block with occasional premature ventricular complexes and fusion complexes Low voltage QRS Left anterior fascicular block Septal infarct, age undetermined Lateral infarct, age undetermined Abnormal ECG Compared to ECG 05/20/2024 18:00:20 Fusion complex(es) now present Ventricular premature complex(es) now present Low QRS voltage now present Left anterior fascicular block now present Sinus arrhythmia no longer present Left-axis deviation no longer present Myocardial infarct finding still present Electronically Signed On 06-03-24 11:16:27 CDT by Brian Petty
--- NOTE | 2024-06-03 16:44 | RAD REPORT ---
EXAMINATION: US RETROPERITONEUM CLINICAL INDICATION: questionable 2 mm proximal right ureteral calculus TECHNIQUE: Real-time ultrasonography of the abdomen was performed. COMPARISON: 06/03/2024 FINDINGS: RIGHT KIDNEY: Right renal length measurement: 9 cm. Normal in echogenicity and size. No calculus, margaux id mass or hydronephrosis. Limited evaluation due to body habitus. LEFT KIDNEY: Left renal length measurement: 6.4 cm. Normal in echogenicity and size. No calculus, margaux id mass or hydronephrosis. Limited evaluation due to body habitus. ADDITIONAL FINDINGS: N/A IMPRESSION: No acute findings identified. Limited by body habitus. No evidence of hydronephrosis.
--- NOTE | 2024-06-03 16:45 | RAD REPORT ---
EXAM: URINARY BLADDER ULTRASOUND COMPARISON: None CLINICAL INDICATION: questionable 2 mm proximal right ureteral calculus TECHNIQUE: Multiplanar grayscale and color flow sonographic images were obtained through the pelvis for evaluation of the bladder.. FINDINGS: Bladder volume was measured at 27 cc. The bladder wall shows no focal thickening or mass. No echogenic calculi. IMPRESSION: Decompressed bladder which is not well assessed..
[2024-06-03] MEDS ORDERED: NA CHLORIDE 0.9% 250 ML IV SCH (17:00)
[2024-06-03 17:26] LABS: Hematocrit 23.4 % (36.0-45.0); Hemoglobin 7.2 g/dL (12.0-15.0); MCH 29.1 pg (27.0-35.0); MCHC 30.8 g/dL (32.0-36.0); MCV 94.5 fL (80-100); MPV 10.8 fL (7.6-11.3); Platelets 202 thou/uL (152-406); RBC Red Blood Cell Count 2.48 M/uL (3.86-4.86); Red Cell Distribution Width 17.9 % (12.1-15.2)
[2024-06-03] MEDS: GLUCERNA SHAKE 237 ML CAN PO SCH (21:05)
[2024-06-03] MEDS: NA CHLORIDE 0.9% 250 ML ONE (21:10)
[2024-06-03] MEDS ORDERED: SODIUM CHLORIDE 0.9% 10ML INJ IV PRN (22:03)
[2024-06-04 08:53] LABS: Absolute Lymphocytes (CBC) 0.7 K/uL (0.7-4.9); Absolute Monocytes 0.5 K/uL (0.1-1.3); Absolute Neutrophil 7.8 K/uL (1.8-8.0); Basophils % 0.2 % (0-1.3); Eosinophils % 0.3 % (0-4.4); Hematocrit 24.2 % (36.0-45.0); Hemoglobin 7.8 g/dL (12.0-15.0); Lymphocytes % 7.3 % (15.3-44.8); MCH 30.4 pg (27.0-35.0); MCHC 32.2 g/dL (32.0-36.0); MCV 94.4 fL (80-100); MPV 10.3 fL (7.6-11.3); Monocytes % 5.5 % (3.3-12.3); Neutrophils % 86.7 % (41.7-73.7); Nucleated Red Blood Cells % 0.1 % (0-0); Platelets 190 thou/uL (152-406); RBC Red Blood Cell Count 2.57 M/uL (3.86-4.86)
[2024-06-04] MEDS: PANTOPRAZOLE 40 MG INJ IVP SCH (08:59)
[2024-06-04 09:09] LABS: AST/SGOT 12 U/L (15-37); Albumin 2.6 g/dL (3.4-5.0); Albumin/Globulin Ratio 0.7 (1.1-1.8); Alkaline Phosphatase 90 U/L (45-117); Anion Gap 8.3 mEq/L (5.0-15.0); BUN Blood Urea Nitrogen 80 mg/dL (7-18); Bicarbonate 28 mEq/L (21-32); Bilirubin Total 0.4 mg/dL (0.2-1.0); Globulin 3.9 g/dL (2.3-3.5); Glomerular Filtration Rate 27 ml/min (=/>90); Glucose Level 185 mg/dL (74-106); Magnesium 2.1 mg/dL (1.6-2.4); Phosphorus 3.8 mg/dL (2.5-4.9); Potassium 4.3 mEq/L (3.5-5.1); Protein, Total 6.5 g/dL (6.4-8.2); Sodium Level 141 mEq/L (136-145); Uric Acid 3.5 mg/dL (2.6-6.0)
[2024-06-04 09:11] LABS: ALT/SGPT < 14 U/L (13-56)
[2024-06-04] MEDS ORDERED: cloNIDine HCL 0.1 MG TAB PO PRN (10:13)
[2024-06-04] MEDS: HYDRALAZINE HCL 25 MG TABLET PO SCH (11:01)
[2024-06-04] MEDS: DOXAZOSIN 4 MG TAB PO SCH (11:02)
[2024-06-04] MEDS: LOSARTAN POTASSIUM 50 MG TABLET PO SCH (11:02)
[2024-06-04] MEDS: MAGNESIUM OXIDE 400 MG TAB PO SCH (12:00)
[2024-06-04] MEDS: NEBIVOLOL HCL 5 MG TAB PO SCH (12:11)
[2024-06-04] MEDS: BUSPIRONE HCL 5 MG TABLET PO SCH (13:19)
--- NOTE | 2024-06-04 16:42 | P.PN ---
Subjective Date of Service: 06/04/24 Chief Complaint: epistaxis Patient removed her nasal tamponade overnight. No more epistaxis. Nursing staff report patient had 1 episode of melena this morning. Physical Examination - Vital Signs Temperature: 98.2 F Blood Pressure: 165/70 Pulse: 72 Respirations: 18 Pulse Ox (%): 99 Assessment And Plan - Plan Physical Exam GEN: awake, hard of hearing, aox1 HEENT: No epistaxis. CV: Regular rate and rhythm, no edema Pulm: Nonlabored respirations on 3L NC, diminished at bases bilaterally ABD: soft, mild discomfort on palpation of abdomen Integumentary: well healing left surgical incision with thony in place Neuro: Normal speech, normal affect Problem List: Epistaxis Acute on chronic anemia Abdominal pain Pneumonia Left femur fracture s/p recent ORIF (05/21/24) chronic diastolic CHF Chronic COPD (has home O2) CKD Dementia / Cognitive communication disorder Obstructive sleep apnea Hypertension Hyperlipidemia IDDM2 Epistaxis Acute on chronic anemia Abdominal pain on admission, presents from [facility] with right sided nosebleed, hypoxemia. Patient is a poor historian. Most info obtained from chart review. Does have some dementia / cognitive communication disorder per chart Nosebleed resolved with rhinorocket in ED. No further bleeding. Given IV rocephin/Vanc, IV lasix 40 mg in ED. Hgb 7.3 on admission. LFTs wnl she did have recent ORIF surgery on 05/21 and Hgb was noted to slowly downtrend to 7s post op ENT consulted Pneumonia Leukocytosis Patient reportedly hypoxic at [facility] prior to admission. CT chest: Predominantly mid and lower left lung pneumonia. Questionable nonobstructing proximal right ureteral calculus Blood cultures taking. On empiric rocephin (06/03-) Pulm consulted Left femur fracture s/p recent ORIF (05/21/24) Recent admission for left femur fracture ~2 weeks ago. Underwent ORIF with Dr. Levin on 05/21/24 Surgical incision is healing well with thony in place. Patient denied any worsening pain near surgical site. pain control PT once more alert/awake and stable. chronic diastolic CHF Chronic COPD (has home O2) confirm home meds, restart as appropriate wean oxygen as tolerated BNP 7k IV lasix 40 mg daily CKD3 Stable Nephrology Dr. Aglieco is following Dementia / Cognitive communication disorder Obstructive sleep apnea Hypertension Hyperlipidemia On home medications. IDDM2 accu-cheks, SSI 06/04 Continue to monitor H&H and for active bleed. Obtain CT abdomen and pelvis given that patient abdomen is more rotund. Empiric antibiotics Resume PT Monitor renal function. VTE: SCD Code: Full Dispo: Home Time Spent Managing Pts Care (In Minutes): 55
[2024-06-04] MEDS: allopurinoL 300 MG TAB PO SCH (17:24)
--- NOTE | 2024-06-04 18:40 | RAD REPORT ---
EXAMINATION: Abdomen Pelvis Wo Contrast CLINICAL INDICATION: Female, 79 years old.distended abdomen TECHNIQUE: CT abdomen and pelvis was performed, without IV contrast, as per department protocol. Axia l, sagittal and coronal reconstructions were obtained. One or more of the following dose reduction techniques were used: Automated exposure control, adjustment of the mA and/or kV according to the pat ient size, and/or iterative reconstruction. Unless otherwise specified, incidental findings do not require dedicated imaging follow-up. [id number]. IV CONTRAST: Not administered. COMPARISON: 02/11/2024 FINDINGS: The lack of intravenous contrast limits the sensitivity of this exam for evaluation of solid visceral organs, vascular structures, and retroperitoneum. LOWER CHEST: Bilateral pleural effusions with possibly underlying atelectasis.Mild cardiomegaly Moder ate coronary artery calcifications.Mild circumferential thickening of the distal esophagus which could reflect esophagitis. Aortic valve calcifications. UPPER GI: No significant abnormality. LIVER: No significant focal abnormality. GALLBLADDER/BILE DUCTS: Cholecystectomy. No biliary duct dilatation..? PANCREAS: No mass, ductal dilation, or sid-pancreatic fluid. SPLEEN: Unremarkable. ADRENALS: No adrenal masses. KIDNEYS AND URETERS: No hydronephrosis.Lobular kidneys bilaterally.No renal calculi. ABDOMINAL AORTA AND OTHER VESSELS: Moderate atherosclerotic changes without aortic aneurysm. PERITONEUM: Nonspecific free fluid. LYMPH NODES: No pathologic lymphadenopathy. ABDOMINAL WALL: Body wall edema. SMALL BOWEL/COLON: Small bowel has normal course and caliber. No colonic wall thickening or pericolon ic inflammatory changes.Normal appendix. Mild diverticulosis without diverticulitis. Mild formed stool burden. Scattered air-fluid levels in the colon. URINARY BLADDER: Underdistended but grossly unremarkable. REPRODUCTIVE ORGANS: No pathologic process. MUSCULOSKELETAL: Left hip ORIF. No new acute fractures. ADDITIONAL FINDINGS: None. IMPRESSION: No acute findings within the abdomen or pelvis. Air-fluid levels in the colon could reflect a diarrhe al disease. No bowel obstruction identified. Anasarca present.
--- NOTE | 2024-06-04 20:02 | P.PN ---
Date of Service: 06/04/24 Vital Signs Temp Pulse Resp BP Pulse Ox 98.2 F 72 18 165/70 H 99 06/04/24 16:42 06/04/24 16:42 06/04/24 16:42 06/04/24 16:42 06/04/24 16:42 Medications Allopurinol (Allopurinol 300 Mg Tab) 300 mg PO DAILY AT SUPPER [facility] Last Admin: 06/04/24 17:24 Dose: 300 mg Buspirone HCl (Buspirone Hcl 5 Mg Tablet) 10 mg PO TID [facility] Last Admin: 06/04/24 13:19 Dose: 10 mg Clonidine HCl (Clonidine Hcl 0.1 Mg Tab) 0.1 mg PO BID PRN PRN Reason: Goal to achieve SBP in comment Doxazosin Mesylate (Doxazosin 4 Mg Tab) 4 mg PO BID [facility] Last Admin: 06/04/24 11:02 Dose: 4 mg Enteral Nutritional Formula (Glucerna Shake 237 Ml Can) 237 ml PO BID [facility] Last Admin: 06/04/24 09:00 Dose: 237 ml Famotidine (Famotidine 20 Mg Tab) 20 mg PO DAILY [facility]; Protocol Furosemide (Furosemide 40 Mg/4 Ml Vial) 40 mg IV DAILY [facility] Last Admin: 06/04/24 09:00 Dose: 40 mg Gabapentin (Gabapentin 300 Mg Cap) 300 mg PO BID [facility] Glucagon (Glucagon 1 Mg/Vial) 1 mg IM 1X PRN PRN Reason: HYPOGLYCEMIA Home Med (Protein Supplement [Promod]) 30 ml PO BID [facility] Hydralazine HCl (Hydralazine Hcl 25 Mg Tablet) 75 mg PO TID [facility] Last Admin: 06/04/24 13:19 Dose: 75 mg Dextrose (Dextrose 10% Water Iv Soln.) 125 mls @ 0 mls/hr IV PRN PRN; Protocol PRN Reason: HYPOGLYCEMIA Ceftriaxone Sodium 1,000 mg/ (Sodium Chloride) 50 mls @ 100 mls/hr IVPB DAILY [facility]; Protocol Last Admin: 06/04/24 09:00 Dose: 50 mls Sodium Chloride (Sodium Chloride) 250 mls @ 0 mls/hr IV .Q0M [facility] Insulin Human Regular (Insulin Regular (Human) 100 Unit/Ml) 0 unit SQ ACHS [facility]; Protocol Last Admin: 06/04/24 16:30 Dose: Not Given Losartan Potassium (Losartan Potassium 50 Mg Tablet) 50 mg PO BID [facility] Last Admin: 06/04/24 11:02 Dose: 50 mg Magnesium Oxide (Magnesium Oxide 400 Mg Tab) 400 mg PO NOON [facility] Last Admin: 06/04/24 12:00 Dose: 400 mg Montelukast Sodium (Montelukast 10 Mg Tab) 10 mg PO DAILY [facility] Nebivolol (Nebivolol Hcl 5 Mg Tab) 10 mg PO DAILY [facility] Last Admin: 06/04/24 12:11 Dose: 10 mg Pantoprazole Sodium (Pantoprazole 40 Mg Inj) 40 mg IVP Q12HR [facility]; Protocol Last Admin: 06/04/24 08:59 Dose: 40 mg Sodium Chloride (Sodium Chloride 0.9% 10ml Inj) 10 ml IV UD PRN PRN Reason: Diluant Zinc Sulfate (Zinc Sulfate 220 Mg Cap) 220 mg PO DAILY [facility] Lab Results (last 24 hrs) 06/02/24 23:55: ABO/Rh B POSITIVE, Solid Phase Ab Screen Negative, Crossmatch See Detail Microbiology Results 06/02/24 00:00 Blood - Blood Aerobic Blood Culture - Preliminary No growth in 24 hours. 06/02/24 00:00 Blood - Blood Anaerobic Blood Culture - Preliminary No growth in 24 hours. 06/03/24 00:03 Blood - Blood Aerobic Blood Culture - Preliminary No growth in 24 hours. 06/03/24 00:03 Blood - Blood Anaerobic Blood Culture - Preliminary No growth in 24 hours. Assessment/ Plan: Nephrology No dyspnea No chest pain No acute events overnight Vitals, medications, blood work and imaging reviewed in the chart General: Cooperative, Obese HEENT: Atraumatic Neck: Supple Respiratory: Diminished Cardiovascular: Regular rate/rhythm, Edema Gastrointestinal: Distended, Tenderness Musculoskeletal: No clubbing, No contractures Integumentary: No rashes, No cyanosis Neurological: Normal speech Laboratory Data (last 24 hrs) 06/02/24 06/02/24 06/02/24 21:52 21:52 21:52 WBC 10.50 Hgb 7.3 L Hct 23.4 L Plt Count 195 PT 16.6 H INR 1.48 Sodium 137 Potassium 4.5 BUN 61 H Creatinine 1.81 H Glucose 289 H Magnesium 2.5 H Total Bilirubin 0.4 AST < 10 L ALT < 14 Alkaline Phosphatase 103 Imagings Data: EXAM: Chest Single View HISTORY: 79 years Female hypxemia COMPARISON: 05/20/2024 FINDINGS: LUNGS/PLEURA: Similar diffuse prominence of the pulmonary interstitium. Small left pleural effusion. CARDIAC/MEDIASTINUM: Stable enlargement. UPPER ABDOMEN: No significant abnormality. BONES: No acute abnormality. LINES/TUBES/OTHER: N/A IMPRESSION: Pulmonary edema, similar to 05/20/2024. Reason for Exam: pneumonia Report Status: Draft CLINICAL HISTORY: Pneumonia. COMPARISON: CT Abdomen Pelvis 02/11/2024. TECHNIQUE: CT CHEST ABDOMEN PELVIS WITHOUT IV CONTRAST on 06/02/2024 11:43 PM CDT This exam was performed according to our departmental dose-optimization program, which includes automated exposure control, adjustment of the mA and/or kV according to patient size and/or use of iterative reconstruction technique. FINDINGS: Chest: The heart is enlarged. There is no pericardial effusion. Intrathoracic lymph nodes are not enlarged. There are small bilateral pleural effusions. Central airways are patent. There is moderate airspace disease throughout the left lower lobe as well as the left upper lobe. There are vague groundglass opacity scattered throughout the right lung. Abdomen: The liver is normal in appearance. There is no biliary dilatation. Cholecystectomy was performed. The pancreas and spleen are normal in appearance. Adrenal glands are normal. There is mild to moderate bilateral renal atrophy. There are 2 lower pole right renal calculi measuring up to 2 mm. There is a questionable 2 mm proximal right ureteral calculus without hydronephrosis. Abdominal aorta is mildly calcified without aneurysm. There is no free air. There is no retroperitoneal adenopathy. Pelvis: There is mild left colonic diverticulosis. Urinary bladder is unremarkable. There is no free fluid. Uterus is poorly seen. Appendix is not well seen. Skeleton: There are postoperative changes of the proximal left femur. IMPRESSION: Predominantly mid and lower left lung pneumonia. Questionable nonobstructing proximal right ureteral calculus. Conclusions/Impression: Stage I RAYNE may be CRS CKD IIIa -No NSAIDs -Continue diuresis Nephrolithiasis with possible right proximal ureteral stone -Repeat Renal US without ureteral stone HTN with CKD/ CHF -Continue Losartan -Continue Nebivolol & Doxazosin -Continue Hydralazine Diastolic CHF, A/C -Continue Lasix DM II with CKD -RISS Hypoalbuminemia -Continue Glucerna Anemia in chronic illness -Monitor H&H -PRBC prn Hospitalist note reviewed
[2024-06-04] MEDS: HOME MED 1 EA UNK (Protein Supplement [Promod] 946 ML Liquid) PO SCH (21:00)
[2024-06-04] MEDS: GABAPENTIN 300 MG CAP PO SCH (21:05)
[2024-06-05 06:01] VITALS: BMI 37.8
[2024-06-05 07:16] LABS: Absolute Lymphocytes (CBC) 0.5 K/uL (0.7-4.9); Absolute Monocytes 0.5 K/uL (0.1-1.3); Basophils % 0.1 % (0-1.3); Eosinophils % 0.2 % (0-4.4); Hemoglobin 7.8 g/dL (12.0-15.0); Lymphocytes % 4.3 % (15.3-44.8); MCH 30.1 pg (27.0-35.0); MCHC 32.4 g/dL (32.0-36.0); MCV 92.9 fL (80-100); MPV 9.9 fL (7.6-11.3); Monocytes % 4.6 % (3.3-12.3); Neutrophils % 90.8 % (41.7-73.7); Platelets 184 thou/uL (152-406); RBC Red Blood Cell Count 2.59 M/uL (3.86-4.86)
[2024-06-05 07:42] LABS: Anion Gap 6.7 mEq/L (5.0-15.0); Potassium 3.7 mEq/L (3.5-5.1)
[2024-06-05] MEDS: ZINC SULFATE 220 MG CAP PO SCH (08:30)
[2024-06-05] MEDS: FAMOTIDINE 20 MG TAB PO SCH (08:30)
[2024-06-05] MEDS: MONTELUKAST 10 MG TAB PO SCH (08:30)
[2024-06-05] MEDS: HYDROCODONE/APAP 5/325 MG TAB PO PRN (10:36)
[2024-06-05] MEDS: LOPERAMIDE HCL 2 MG CAPSULE PO STA (12:45)
--- NOTE | 2024-06-05 18:29 | P.PN ---
Subjective Date of Service: 06/05/24 Chief Complaint: epistaxis No more epistaxis. Patient have had multiple episodes of diarrhea today. Physical Examination - Vital Signs Temperature: 98.2 F Blood Pressure: 165/70 Pulse: 72 Respirations: 18 Pulse Ox (%): 99 Assessment And Plan - Plan Physical Exam GEN: awake, hard of hearing, NAD. HEENT: No epistaxis. CV: Regular rate and rhythm, no edema Pulm:Diminished at bases bilaterally, no crackles or wheezes. ABD: soft, mild discomfort on palpation of abdomen Integumentary: well healing left surgical incision with thony in place Neuro: Normal speech, normal affect Problem List: Epistaxis Acute on chronic anemia Abdominal pain Pneumonia Left femur fracture s/p recent ORIF (05/21/24) chronic diastolic CHF Chronic COPD (has home O2) CKD Dementia / Cognitive communication disorder Obstructive sleep apnea Hypertension Hyperlipidemia IDDM2 Epistaxis Acute on chronic anemia Abdominal pain on admission, presents from [facility] with right sided nosebleed, hypoxemia. Patient is a poor historian. Most info obtained from chart review. Does have some dementia / cognitive communication disorder per chart Nosebleed resolved with rhinorocket in ED. No further bleeding. Given IV rocephin/Vanc, IV lasix 40 mg in ED. Hgb 7.3 on admission. LFTs wnl she did have recent ORIF surgery on 05/21 and Hgb was noted to slowly downtrend to 7s post op ENT consulted Pneumonia Leukocytosis Patient reportedly hypoxic at [facility] prior to admission. CT chest: Predominantly mid and lower left lung pneumonia. Questionable nonobstructing proximal right ureteral calculus Blood cultures taking. On empiric rocephin (06/03-) Pulm consulted Left femur fracture s/p recent ORIF (05/21/24) Recent admission for left femur fracture ~2 weeks ago. Underwent ORIF with Dr. Levin on 05/21/24 Surgical incision is healing well with thony in place. Patient denied any worsening pain near surgical site. pain control PT once more alert/awake and stable. chronic diastolic CHF Chronic COPD (has home O2) confirm home meds, restart as appropriate wean oxygen as tolerated BNP 7k IV lasix 40 mg daily CKD3 Stable Nephrology Dr. Clemens is following Dementia / Cognitive communication disorder Obstructive sleep apnea Hypertension Hyperlipidemia On home medications. IDDM2 accu-cheks, SSI 06/04 Continue to monitor H&H and for active bleed. Obtain CT abdomen and pelvis given that patient abdomen is more rotund. Empiric antibiotics Resume PT Monitor renal function. 06/05 Analgesics as needed for hip pain. Stool WBC and C. difficile if diarrhea does not improve CT abdomen pelvis reviewed with unremarkable except air-fluid levels in the colon suggestive of diarrhea. Add IV Flagyl VTE: SCD Code: Full Dispo: Home Time Spent Managing Pts Care (In Minutes): 55
--- NOTE | 2024-06-05 20:32 | P.PN ---
Date of Service: 06/05/24 Vital Signs Temp Pulse Resp BP Pulse Ox 98.2 F 72 18 165/70 H 99 06/05/24 18:30 06/05/24 18:30 06/05/24 18:30 06/05/24 18:30 06/05/24 18:30 Medications Hydrocodone Bitart/Acetaminophen (Hydrocodone/Apap 5/325 Mg Tab) 1 tab PO Q6H PRN PRN Reason: Pain scale 5-7 (Moderate) Last Admin: 06/05/24 10:36 Dose: 1 tab Allopurinol (Allopurinol 300 Mg Tab) 300 mg PO DAILY AT SUPPER [facility] Last Admin: 06/05/24 16:06 Dose: 300 mg Buspirone HCl (Buspirone Hcl 5 Mg Tablet) 10 mg PO TID [facility] Last Admin: 06/05/24 16:06 Dose: 10 mg Clonidine HCl (Clonidine Hcl 0.1 Mg Tab) 0.1 mg PO BID PRN PRN Reason: Goal to achieve SBP in comment Doxazosin Mesylate (Doxazosin 4 Mg Tab) 4 mg PO BID [facility] Last Admin: 06/05/24 08:30 Dose: 4 mg Enteral Nutritional Formula (Glucerna Shake 237 Ml Can) 237 ml PO BID [facility] Last Admin: 06/05/24 08:30 Dose: 237 ml Famotidine (Famotidine 20 Mg Tab) 20 mg PO DAILY [facility]; Protocol Last Admin: 06/05/24 08:30 Dose: 20 mg Furosemide (Furosemide 40 Mg/4 Ml Vial) 40 mg IV DAILY [facility] Last Admin: 06/05/24 08:29 Dose: 40 mg Gabapentin (Gabapentin 300 Mg Cap) 300 mg PO BID [facility] Last Admin: 06/05/24 08:30 Dose: 300 mg Glucagon (Glucagon 1 Mg/Vial) 1 mg IM 1X PRN PRN Reason: HYPOGLYCEMIA Home Med (Protein Supplement [Promod]) 30 ml PO BID [facility] Last Admin: 06/05/24 08:31 Dose: 30 ml Hydralazine HCl (Hydralazine Hcl 25 Mg Tablet) 75 mg PO TID [facility] Last Admin: 06/05/24 16:05 Dose: 75 mg Dextrose (Dextrose 10% Water Iv Soln.) 125 mls @ 0 mls/hr IV PRN PRN; Protocol PRN Reason: HYPOGLYCEMIA Ceftriaxone Sodium 1,000 mg/ (Sodium Chloride) 50 mls @ 100 mls/hr IVPB DAILY [facility]; Protocol Last Admin: 06/05/24 08:29 Dose: 50 mls Sodium Chloride (Sodium Chloride) 250 mls @ 0 mls/hr IV .Q0M [facility] Metronidazole/Sodium Chloride (Flagyl 500mg/100 Ml Iv Premix) 500 mg in 100 mls @ 200 mls/hr IV Q8H [facility]; Protocol Insulin Human Regular (Insulin Regular (Human) 100 Unit/Ml) 0 unit SQ ACHS [facility]; Protocol Last Admin: 06/05/24 16:02 Dose: Not Given Losartan Potassium (Losartan Potassium 50 Mg Tablet) 50 mg PO BID [facility] Last Admin: 06/05/24 08:30 Dose: 50 mg Magnesium Oxide (Magnesium Oxide 400 Mg Tab) 400 mg PO NOON [facility] Last Admin: 06/05/24 12:50 Dose: 400 mg Montelukast Sodium (Montelukast 10 Mg Tab) 10 mg PO DAILY [facility] Last Admin: 06/05/24 08:30 Dose: 10 mg Nebivolol (Nebivolol Hcl 5 Mg Tab) 10 mg PO DAILY [facility] Last Admin: 06/05/24 08:30 Dose: 10 mg Pantoprazole Sodium (Pantoprazole 40 Mg Inj) 40 mg IVP Q12HR [facility]; Protocol Last Admin: 06/05/24 08:31 Dose: 40 mg Sodium Chloride (Sodium Chloride 0.9% 10ml Inj) 10 ml IV UD PRN PRN Reason: Diluant Zinc Sulfate (Zinc Sulfate 220 Mg Cap) 220 mg PO DAILY [facility] Last Admin: 06/05/24 08:30 Dose: 220 mg Lab Results (last 24 hrs) 06/02/24 23:55: ABO/Rh B POSITIVE, Solid Phase Ab Screen Negative, Crossmatch See Detail Microbiology Results 06/02/24 00:00 Blood - Blood Aerobic Blood Culture - Preliminary No growth in 24 hours. 06/02/24 00:00 Blood - Blood Anaerobic Blood Culture - Preliminary No growth in 24 hours. 06/03/24 00:03 Blood - Blood Aerobic Blood Culture - Preliminary No growth in 24 hours. 06/03/24 00:03 Blood - Blood Anaerobic Blood Culture - Preliminary No growth in 24 hours. Assessment/ Plan: Nephrology No dyspnea No chest pain Reports diffuse pain No acute events overnight Vitals, medications, blood work and imaging reviewed in the chart General: Cooperative, Obese HEENT: Atraumatic Neck: Supple Respiratory: Diminished Cardiovascular: Regular rate/rhythm, Edema Gastrointestinal: Distended, Tenderness Musculoskeletal: No clubbing, No contractures Integumentary: No rashes, No cyanosis Neurological: Normal speech Laboratory Data (last 24 hrs) 06/02/24 06/02/24 06/02/24 21:52 21:52 21:52 WBC 10.50 Hgb 7.3 L Hct 23.4 L Plt Count 195 PT 16.6 H INR 1.48 Sodium 137 Potassium 4.5 BUN 61 H Creatinine 1.81 H Glucose 289 H Magnesium 2.5 H Total Bilirubin 0.4 AST < 10 L ALT < 14 Alkaline Phosphatase 103 Imagings Data: EXAM: Chest Single View HISTORY: 79 years Female hypxemia COMPARISON: 05/20/2024 FINDINGS: LUNGS/PLEURA: Similar diffuse prominence of the pulmonary interstitium. Small left pleural effusion. CARDIAC/MEDIASTINUM: Stable enlargement. UPPER ABDOMEN: No significant abnormality. BONES: No acute abnormality. LINES/TUBES/OTHER: N/A IMPRESSION: Pulmonary edema, similar to 05/20/2024. Reason for Exam: pneumonia Report Status: Draft CLINICAL HISTORY: Pneumonia. COMPARISON: CT Abdomen Pelvis 02/11/2024. TECHNIQUE: CT CHEST ABDOMEN PELVIS WITHOUT IV CONTRAST on 06/02/2024 11:43 PM CDT This exam was performed according to our departmental dose-optimization program, which includes automated exposure control, adjustment of the mA and/or kV according to patient size and/or use of iterative reconstruction technique. FINDINGS: Chest: The heart is enlarged. There is no pericardial effusion. Intrathoracic lymph nodes are not enlarged. There are small bilateral pleural effusions. Central airways are patent. There is moderate airspace disease throughout the left lower lobe as well as the left upper lobe. There are vague groundglass opacity scattered throughout the right lung. Abdomen: The liver is normal in appearance. There is no biliary dilatation. Cholecystectomy was performed. The pancreas and spleen are normal in appearance. Adrenal glands are normal. There is mild to moderate bilateral renal atrophy. There are 2 lower pole right renal calculi measuring up to 2 mm. There is a questionable 2 mm proximal right ureteral calculus without hydronephrosis. Abdominal aorta is mildly calcified without aneurysm. There is no free air. There is no retroperitoneal adenopathy. Pelvis: There is mild left colonic diverticulosis. Urinary bladder is unremarkable. There is no free fluid. Uterus is poorly seen. Appendix is not well seen. Skeleton: There are postoperative changes of the proximal left femur. IMPRESSION: Predominantly mid and lower left lung pneumonia. Questionable nonobstructing proximal right ureteral calculus. Conclusions/Impression: Stage I RAYNE may be CRS CKD IIIa -No NSAIDs -Continue diuresis Nephrolithiasis with possible right proximal ureteral stone on CT -Repeat Renal US without ureteral stone HTN with CKD/ CHF -Continue Losartan -Continue Nebivolol & Doxazosin -Continue Hydralazine Diastolic CHF, A/C -Continue Lasix DM II with CKD -RISS Hypoalbuminemia -Continue Glucerna Anemia in chronic illness -Monitor H&H -PRBC prn Hospitalist note reviewed Case reviewed with Dr. Paz
[2024-06-06 10:25] VITALS: O2SAT 100
--- NOTE | 2024-06-06 13:23 | P.DS ---
Admission Date: 06/03/24 Discharge Date: 06/06/24 Disposition: TRANSFER TO [facility] Discharge Condition: FAIR Reason for Admission: epistaxis Brief History of Present Illness: 79-year-old female with past medical history of chronic kidney disease, osteoarthritis, CKD, diabetes, hyperlipidemia, hypertension, sleep apnea, cognitive communication disorder presented from [facility] with complaints of nosebleed. Patient was noted to be on aspirin and Eliquis. She was requiring oxygen. Imaging also showed pulm edema and concern for pneumonia. A Rhino Rocket was placed and bleeding stopped. Patient was admitted for further ma nagement. Hospital Course: Problem List: Epistaxis Acute on chronic anemia Abdominal pain Pneumonia Left femur fracture s/p recent ORIF (05/21/24) chronic diastolic CHF Chronic COPD (has home O2) CKD Dementia / Cognitive communication disorder Obstructive sleep apnea Hypertension Hyperlipidemia IDDM2 Patient admitted to the medical floor and the following medical problems addressed: Epistaxis Acute on chronic anemia Abdominal pain Enterocolitis on admission, presents from [facility] with right sided nosebleed, hypoxemia. Patient is a poor historian. Most info obtained from chart review. Does have some dementia / cognitive communication disorder per chart Nosebleed resolved with rhinorocket in ED. No further bleeding. Patient was on empiric IV rocephin/Vanc. Hgb 7.3 on admission. LFTs wnl she did have recent ORIF surgery on 05/21 and Hgb was noted to slowly downtrend to 7s post op Patient pulled out the Rhino Rocket by herself and does no further epistaxis. Patient had an episode of melena likely related to the epistaxis. She did not experience any further melena. She also had transient diarrhea which resolved. Patient discharged with oral Cipro and vancomycin for possible enterocolitis. Hemoglobin was stable. Pneumonia Leukocytosis Patient reportedly hypoxic at [facility] prior to admission. CT chest: Predominantly mid and lower left lung pneumonia. Questionable nonobstructing proximal right ureteral calculus Blood cultures showed no growth Patient was on empiric rocephin and vancomycin. Pulm consulted Left femur fracture s/p recent ORIF (05/21/24) Recent admission for left femur fracture ~2 weeks ago. Underwent ORIF with Dr. Levin on 05/21/24 Surgical incision is healing well with thony in place. Patient denied any worsening pain near surgical site. pain control PT once more alert/awake and stable. Acute on chronic diastolic CHF Chronic COPD (has home O2) confirm home meds, restart as appropriate wean oxygen as tolerated BNP 7k Patient was on IV Lasix for CHF. IV Lasix transition to oral Lasix on discharge. CKD3 Stable Patient was evaluated by nephrology Dr. Clemens. Dementia / Cognitive communication disorder Obstructive sleep apnea Hypertension Hyperlipidemia Continued home medications IDDM2 Managed with accu-cheks, SSI. Home insulin regimen resumed on discharge. Vital Signs/Physical Exam: Temp Pulse Resp BP Pulse Ox 98.1 F 70 18 140/84 99 06/06/24 11:58 06/06/24 11:58 06/06/24 11:58 06/06/24 11:58 06/06/24 11:58 General: In no apparent distress HEENT: Mucous membr. moist/pink Neck: JVD not distended Respiratory: Clear to auscultation bilaterally, Normal air movement Cardiovascular: Regular rate/rhythm, Normal S1 S2 Gastrointestinal: Normal bowel sounds, Soft and benign, Non-distended Musculoskeletal: No swelling Integumentary: No cyanosis Laboratory Data at Discharge: WBC 11.00 thou/uL (4.3-10.9) H 06/05/24 07:07 Hgb 7.8 g/dL (12.0-15.0) L 06/05/24 07:07 Hct 24.0 % (36.0-45.0) L 06/05/24 07:07 Plt Count 184 thou/uL (152-406) 06/05/24 07:07 PT 16.6 SECONDS (10-13.0) H 06/02/24 21:52 INR 1.48 06/02/24 21:52 Sodium 139 mEq/L (136-145) 06/05/24 07:07 Potassium 3.7 mEq/L (3.5-5.1) D 06/05/24 07:07 BUN 70 mg/dL (7-18) H 06/05/24 07:07 Creatinine 1.83 mg/dL (0.55-1.02) H 06/05/24 07:07 Glucose 225 mg/dL (74-106) H 06/05/24 07:07 Uric Acid 3.5 mg/dL (2.6-6.0) 06/04/24 08:16 Phosphorus 3.8 mg/dL (2.5-4.9) 06/04/24 08:16 Magnesium 2.1 mg/dL (1.6-2.4) 06/04/24 08:16 Total Bilirubin 0.4 mg/dL (0.2-1.0) 06/04/24 08:16 AST 12 U/L (15-37) L 06/04/24 08:16 ALT < 14 U/L (13-56) 06/04/24 08:16 Alkaline Phosphatase 90 U/L (45-117) 06/04/24 08:16 Home Medications: Allopurinol 300 mg PO DAILY AT [facility]PPER 09/17/23 Buspirone HCl [Buspar] 10 mg PO TID 09/17/23 Cetirizine HCl [Zyrtec*] 10 mg PO DAILY 09/17/23 Cholecalciferol (Vitamin D3) [Vitamin D3] 1,000 units PO NOON 09/17/23 Doxazosin Mesylate 4 mg PO BID 09/17/23 Escitalopram [Lexapro*] 10 mg PO DAILY 09/17/23 Gabapentin [Neurontin*] 300 mg PO BID 09/17/23 Hydralazine HCl 75 mg PO TID 09/17/23 Insulin Glargine,Hum.rec.anlog [Lantus] 15 units SQ DAILY 09/17/23 Magnesium Oxide [Magnesium] 400 mg PO NOON 09/17/23 Montelukast [Singulair*] 10 mg PO DAILY 09/17/23 Losartan Potassium [Cozaar*] 50 mg PO BID 11/22/23 cloNIDine HCL [Catapres*] 0.1 mg PO BID PRN 30 Days #60 tab 11/22/23 Ipratropium Neb [Atrovent*] 0.2 mg IH Q6H PRN 30 Days #120 ml 12/22/23 Acetaminophen [Tylenol] 650 mg PO Q6HP PRN 05/20/24 Famotidine 20 mg PO DAILY 05/20/24 Insulin Lispro See Protocol SQ ACHS 05/20/24 Multivitamin [Multiple Vitamins] 1 each PO DAILY 05/20/24 Docusate [Colace Cap*] 200 mg PO DAILY PRN #30 cap 05/24/24 Ascorbic Acid [Vitamin C] 500 mg PO BID 06/03/24 Calcium Carbonate [Calcium] 500 mg PO DAILY 06/03/24 Nebivolol HCl [Bystolic] 10 mg PO DAILY 06/03/24 Protein Supplement [Promod] 30 ml PO BID 06/03/24 Zinc Sulfate [Zinc Sulfate*] 220 mg PO DAILY 06/03/24 Glucerna Shake [Glucerna*] 237 ml PO BID can 06/06/24 Diet: ADA Activity: Fall precautions Followup: Law Levin MD [ACTIVE - CAN ADMIT] - 1-2 Weeks Luciano Mcfadden MD [Primary Care Provider] - 1-2 Weeks Time spent managing pt's care (in minutes): 33
[2024-06-06 16:33] VITALS: BP 171/55; TEMP 98.3
[2024-06-06] MEDS ORDERED: METRONIDAZOLE 500mg IVPB 500 MG/100 ML BAG IV SCH (20:00)
[2024-06-06 20:35] LABS: Specific Gravity 1.009 (1.005-1.030); Sqamous Epithelial <5 /HPF (None Seen); Urine Bacteria <20 /HPF (<20); Urine Bilirubin NEGATIVE (Negative); Urine Blood Negative (Negative); Urine Clarity Clear (Clear); Urine Color Colorless (Yellow); Urine Crystals Unidentified Few /HPF (None Seen); Urine Culture Reflex Order NOT NEEDED; Urine Glucose NEGATIVE (Negative); Urine Ketones NEGATIVE (Negative); Urine Micro Reflex YN NO BILL MICROSCOPIC; Urine Mucus Slight /HPF (None Seen); Urine Nitrite NEGATIVE (Negative); Urine Protein NEGATIVE (Negative); Urine RBC <5 /HPF (None Seen); Urine Urobilinogen Normal (Normal); Urine WBC <5 /HPF (<5); Urine Yeast (Budding) Trace /HPF (None Seen)
[2024-06-06 20:43] LABS: UR MICROALBUMIN 3.6 mg/dL (< 1.9)
--- NOTE | 2024-06-06 20:47 | P.PN ---
Date of Service: 06/06/24 Vital Signs Temp Pulse Resp BP Pulse Ox 98.3 F 66 18 171/55 H 98 06/06/24 16:00 06/06/24 16:00 06/06/24 16:00 06/06/24 16:00 06/06/24 16:00 Microbiology Results 06/02/24 00:00 Blood - Blood Aerobic Blood Culture - Preliminary No growth in 24 hours. 06/02/24 00:00 Blood - Blood Anaerobic Blood Culture - Preliminary No growth in 24 hours. 06/03/24 00:03 Blood - Blood Aerobic Blood Culture - Preliminary No growth in 24 hours. 06/03/24 00:03 Blood - Blood Anaerobic Blood Culture - Preliminary No growth in 24 hours. Assessment/ Plan: Nephrology No dyspnea No chest pain Feeling better today No acute events overnight Vitals, medications, blood work and imaging reviewed in the chart General: Cooperative, Obese HEENT: Atraumatic Neck: Supple Respiratory: Diminished Cardiovascular: Regular rate/rhythm, Edema Gastrointestinal: Distended, Tenderness Musculoskeletal: No clubbing, No contractures Integumentary: No rashes, No cyanosis Neurological: Normal speech Laboratory Data (last 24 hrs) 06/02/24 06/02/24 06/02/24 21:52 21:52 21:52 WBC 10.50 Hgb 7.3 L Hct 23.4 L Plt Count 195 PT 16.6 H INR 1.48 Sodium 137 Potassium 4.5 BUN 61 H Creatinine 1.81 H Glucose 289 H Magnesium 2.5 H Total Bilirubin 0.4 AST < 10 L ALT < 14 Alkaline Phosphatase 103 Imagings Data: EXAM: Chest Single View HISTORY: 79 years Female hypxemia COMPARISON: 05/20/2024 FINDINGS: LUNGS/PLEURA: Similar diffuse prominence of the pulmonary interstitium. Small left pleural effusion. CARDIAC/MEDIASTINUM: Stable enlargement. UPPER ABDOMEN: No significant abnormality. BONES: No acute abnormality. LINES/TUBES/OTHER: N/A IMPRESSION: Pulmonary edema, similar to 05/20/2024. Reason for Exam: pneumonia Report Status: Draft CLINICAL HISTORY: Pneumonia. COMPARISON: CT Abdomen Pelvis 02/11/2024. TECHNIQUE: CT CHEST ABDOMEN PELVIS WITHOUT IV CONTRAST on 06/02/2024 11:43 PM CDT This exam was performed according to our departmental dose-optimization program, which includes automated exposure control, adjustment of the mA and/or kV according to patient size and/or use of iterative reconstruction technique. FINDINGS: Chest: The heart is enlarged. There is no pericardial effusion. Intrathoracic lymph nodes are not enlarged. There are small bilateral pleural effusions. Central airways are patent. There is moderate airspace disease throughout the left lower lobe as well as the left upper lobe. There are vague groundglass opacity scattered throughout the right lung. Abdomen: The liver is normal in appearance. There is no biliary dilatation. Cholecystectomy was performed. The pancreas and spleen are normal in appearance. Adrenal glands are normal. There is mild to moderate bilateral renal atrophy. There are 2 lower pole right renal calculi measuring up to 2 mm. There is a questionable 2 mm proximal right ureteral calculus without hydronephrosis. Abdominal aorta is mildly calcified without aneurysm. There is no free air. There is no retroperitoneal adenopathy. Pelvis: There is mild left colonic diverticulosis. Urinary bladder is unremarkable. There is no free fluid. Uterus is poorly seen. Appendix is not well seen. Skeleton: There are postoperative changes of the proximal left femur. IMPRESSION: Predominantly mid and lower left lung pneumonia. Questionable nonobstructing proximal right ureteral calculus. Conclusions/Impression: Stage I RAYNE may be CRS CKD IIIa -No NSAIDs -Continue diuresis Nephrolithiasis with possible right proximal ureteral stone on CT -Repeat Renal US without ureteral stone HTN with CKD/ CHF -Continue Losartan -Continue Nebivolol & Doxazosin -Continue Hydralazine Diastolic CHF, A/C -Continue Lasix DM II with CKD -RISS Hypoalbuminemia -Continue Glucerna Anemia in chronic illness -Monitor H&H -PRBC prn Hospitalist note reviewed Case reviewed with Dr. Paz
[2024-06-06 21:24] LABS: UR CREAT < 18.0 mg/dL (20-320)
== END 2024-06-06 17:45 | DRG 193 ==
LOC: ER 21:39 → 4TH 06-03 03:41
PROVIDERS: ADMIT Internal Medicine; ATTEND Internal Medicine
PROC: 2Y41X5Z Packing of Nasal Region using Packing Material (ICD-10-PCS; principal; 2024-06-03)
DX: J18.9 Pneumonia, unspecified organism (principal); I50.33 Acute on chronic diastolic (congestive) heart failure; J81.0 Acute pulmonary edema; I13.0 Hypertensive heart and chronic kidney disease with heart failure and stage 1 through stage 4 chronic kidney disease, or unspecified chronic kidney disease; N17.9 Acute kidney failure, unspecified; J44.0 Chronic obstructive pulmonary disease with (acute) lower respiratory infection; J44.9 Chronic obstructive pulmonary disease, unspecified; E11.22 Type 2 diabetes mellitus with diabetic chronic kidney disease; F03.90 Unspecified dementia, unspecified severity, without behavioral disturbance, psychotic disturbance, mood disturbance, and anxiety; N18.31 Chronic kidney disease, stage 3a; E78.5 Hyperlipidemia, unspecified; G47.33 Obstructive sleep apnea (adult) (pediatric); K52.9 Noninfective gastroenteritis and colitis, unspecified; R41.841 Cognitive communication deficit; Z79.4 Long term (current) use of insulin; R04.0 Epistaxis; Z99.81 Dependence on supplemental oxygen; Z47.89 Encounter for other orthopedic aftercare; Z79.01 Long term (current) use of anticoagulants
CPT/HCPCS: 30901; 36415; 36430; 71045; 71250; 74176; 76770; 76857; 80048; 80053; 80076; 81001; 82043; 82570; 82947; 83735; 83880; 84100; 84484; 84550; 85025; 85027; 85610; 86850; 86900; 86901; 86920; 87040; 93005; 94760; 99285; J0696; J1815; J1940; J2405; J2470; J3010; J3370; J7050; P9016

== ENCOUNTER 2024-06-25 17:59 | Inpatient (IN) | payer OTHER ==
--- OUTSIDE RECORDS SUMMARY | 2024-06-25 18:07 | XMS REPORT | Continuity of Care Document ---
Author Name Unknown Address [address] [facility] [address] [place] [address] Organization [facility] [place] Address [address] [facility] [address] [place] [address] Care Team Providers Care Mix House Tender Name Role Phone PCP, PATIENT DOES NOT HAVE A Primary Care Physic cora Killian MD, Renetta Attending Clinician [phone] Jordan BARAJAS, Inna Balderas Attending Clinician UnavailPEDRO Pérez Attending Clinician Unavailable Brian Latham MD Attending Clinician [phone] Frank Singh MD Attending Clinician [phone] Jose SNEED, Renee Schmid Attending Clinician + Pedro Cheek MD Attending Clinician [phone] Griselda SNEED, Henry Peacock Attending Clinician [phone] Doctor Unassigned, [place] Attending Clinician U LEILA Peters Attending Clinician UnavailHENRY Aguilar Admitting Clinician Ari Wood MD, Henry Peacock Admitting Clinician [phone] VALERIA BARKLEY Admitting Clinician Jonathan olguin Payers Payer Name Policy Type Policy Number Effective Date Expirati on Date Source [facility] [id number] 2021 00:00:00 Problems Condition Name Condition Details Condition Category Status Onset Date Resolution Date Last Treatment Date Treating Clinician Comments Source Shortness of breath Shortness of breath Disease Active 2021-03 00:00: 00 [facility] R THIGH HEMATOMA R THIGH HEMATOMA Active 12/16/2021 [facility] Diagnosis Active 2021-03 00:00: 00 2021-12-28 21:47:00 Scott De Leon Hypertensi ve disorder, systemic arterial (disorder) Hypertensi ve disorder, systemic arterial (disorder) Active Problem 12/27/2021 [facility] Problem Active 2021-12-27 08:10:37 Scott De Leon Hypothyroi dism (disorder) Hypothyroi dism (disorder) Active Problem 12/27/2021 [facility] Problem Active 2021-12-27 08:10:37 Scott De Leon 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) Active Problem 12/27/2021 [facility] Problem Active 2021-12-27 08:10:37 Scott De Leon Mixed anxiety and depressive disorder (disorder) Mixed anxiety and depressive disorder (disorder) Active Problem 12/27/2021 [facility] Problem Active 2021-12-27 08:10:37 Scott De Leon Peripheral nerve disease (disorder) Peripheral nerve disease (disorder) Active Problem 12/27/2021 [facility] Problem Active 2021-12-27 08:10:37 Scott De Leon Urinary incontinen ce (finding) Urinary incontinen ce (finding) Active Problem 12/27/2021 [facility] Problem Active 2021-12-27 08:10:37 Scott De Leon PAIN IN UNSPECIFIE D KNEE PAIN IN UNSPECIFIE D KNEE Active [facility] Diagnosis Active 2021-12-28 21:47:00 Scott De Leon Pericardia l effusion (disorder) Pericardia l effusion (disorder) Active Problem 12/27/2021 [facility] Problem Active 2021-12-27 08:10:37 Scott De Leon Simple obesity (disorder) Simple obesity (disorder) Active Problem 12/27/2021 [facility] Problem Active 2021-12-27 08:10:37 Scott De Leon Chronic hypoxemic respirator y failure (disorder) Chronic hypoxemic respirator y failure (disorder) Active Problem 12/27/2021 [facility] Problem Active 2021-12-27 08:10:37 Scott De Leon Chronic kidney disease stage 2 (disorder) Chronic kidney disease stage 2 (disorder) Active Problem 12/27/2021 [facility] Problem Active 2021-12-27 08:10:37 Scott De Leon Chronic obstructiv e lung disease (disorder) Chronic obstructiv e lung disease (disorder) Active Problem 12/27/2021 [facility] Problem Active 2021-12-27 08:10:37 Scott De Leon Gastroesop hageal reflux disease (disorder) Gastroesop hageal reflux disease (disorder) Active Problem 12/27/2021 [facility] Problem Active 2021-12-27 08:10:37 Scott De Leon Gout (disorder) Gout (disorder) Active Problem 12/27/2021 [facility] Problem Active 2021-12-27 08:10:37 Scott De Leon Allergies, Adverse Reactions, Alerts Allergy Name Allergy Type Status Severity Reaction(s) Onset Date Inactive Date Treating Clinician Comments Source NO KNOWN ALLERGIE S Drug Class Active [facility] Social History Social Habit Start Date Stop Date Quantity Comments Source Tobacco use and exposure 2022-01-12 00:00:00 2022-01-12 00:00:00 Smokeless tobacco non-user [facility] Alcohol intake 2022-01-12 00:00:00 2022-01-12 00:00:00 Ex-drinker (finding) [facility] Exposure to SARS-CoV-2 (event) 2022-01-01 00:00:00 2022-01-11 08:31:00 Not sure [facility] Sex Assigned At 1945 00:00:00 1945 00:00:00 [facility] Smoking Status Start Date Stop Date Source Tobacco smoking consumption unknown [facility] Social History Jenny gray Medications Ordered Medication Name Filled Medication Name Start Date Stop Date Current Medication? Ordering Clinician Indication Dosage Frequency Signature (SIG) Comments Components Source amLODIPine 10 mg tablet 2021-03 00:00: 00 Yes 10mg Take 1 tablet by mouth in the morning. [facility] cholecalcif jaya, vitamin D3, 25 mcg (1,000 unit) tablet 2021-03 00:00: 00 Yes 1000U Take 1 tablet by mouth in the morning. [facility] collagenase 250 unit/gram ointment 2021-03 00:00: 00 Yes Apply to affected area(s) daily. [facility] allopurinoL 300 mg tablet 2021-03 11:33: 01-25 00:00 :00 No 300mg Take 300 mg by mouth in the morning. [facility] aspirin 81 mg chewable tablet 2021-03 11:33: 01-25 00:00 :00 No 81mg Take 81 mg by mouth in the morning. [facility] busPIRone 10 mg tablet 2021-03 11:: 01-25 00:00 :00 No 10mg Take 10 mg by mouth in the morning and 10 mg at noon and 10 mg in the evening. [facility] calcium carbonate (CALCIUM 600) 600 mg calcium (1,500 mg) tablet 2021-03 11:: 01-25 00:00 :00 No 600mg Take 600 mg by mouth in the morning. [facility] dapaglifloz in 5 mg tablet 2021-03 11:: 01-25 00:00 :00 No 1{tbl} Take 1 tablet by mouth in the morning. [facility] doxazosin 8 mg tablet 2021-03 11:: 01-25 00:00 :00 No 8mg Take 8 mg by mouth at bedtime. [facility] escitalopra m oxalate 10 mg tablet 2021-03 11:: 01-25 00:00 :00 No 10mg Take 10 mg by mouth in the morning. [facility] ferrous sulfate 325 mg (65 mg iron) EC tablet 2021-03 11:33: 01-25 00:00 :00 No 325mg Take 325 mg by mouth in the morning. [facility] gabapentin 100 mg capsule 2021-03 11:33: 01-25 00:00 :00 No 100mg Take 100 mg by mouth in the morning. [facility] glimepiride 2 mg tablet 2021-03 11:33: 01-25 00:00 :00 No 2mg Take 2 mg by mouth daily with breakfast. [facility] hydrALAZINE 25 mg tablet 2021-03 11:: 01-25 00:00 :00 No 50mg Take 50 mg by mouth every 6 (six) hours. [facility] levothyroxi ne 50 mcg tablet 2021-03 11:: 01-25 00:00 :00 No 50ug Take 50 mcg by mouth every morning. [facility] magnesium oxide 400 mg magnesium capsule 2021-03 11:33: 01-25 00:00 :00 No Take by mouth. [facility] Loperamide HCl 2 mg Tab tablet 2021-03 11:33: 01-25 00:00 :00 No Take by mouth. [facility] montelukast 10 mg tablet 2021-03 11:: 01-25 00:00 :00 No 10mg Take 10 mg by mouth. [facility] nebivoloL 10 mg tablet 2021-03 11:: 01-25 00:00 :00 No 10mg Take 10 mg by mouth in the morning. [facility] nystatin 100,000 unit/gram powder 2021-03 11:33: 01-25 00:00 :00 No Apply to area(s) 2 (two) times daily. [facility] omeprazole 20 mg capsule 2021-03 11:: 01-25 00:00 :00 No 20mg Take 20 mg by mouth in the morning. [facility] pravastatin 80 mg tablet 2021-03 11:: 01-25 00:00 :00 No 80mg Take 80 mg by mouth at bedtime. [facility] traMADoL 50 mg tablet 2021-03 11:33: 01-25 00:00 :00 No 50mg Take 50 mg by mouth every 6 (six) hours as needed. [facility] fluticasone -umeclidin- vilanter (TRELEGY ELLIPTA) 100-62.5-25 mcg DsDv 2021-03 11:33: 01-25 00:00 :00 No Inhale daily. [facility] ascorbic acid, vitamin C, (VITAMIN C) 500 mg tablet 2021-03 11:33: 01-25 00:00 :00 No 500mg Take 500 mg by mouth. [facility] bumetanide 1 mg tablet 2021-03 11:33: 01-25 00:00 :00 No 1mg Take 1 mg by mouth in the morning. [facility] insulin glargine 100 unit/mL injection 2021-03 11:33: 01-25 00:00 :00 No 16U inject 16 Units under the skin in the morning and 16 Units in the evening. [facility] insulin lispro (human) in NaCl 0.9% (NS) IV infusion 2021-03 11:33: 01-25 00:00 :00 No inject under the skin. Sliding scale [facility] ondansetron (ZOFRAN) tablet 4 mg 2021-03 07:10: 58 Yes 4mg 4 mg, Oral, Q6HPRN, Starting on Mon01/25/22 at 0110, Until Discontinu ed, Routine, Nausea and Vomiting (N/V) [facility] allopurinoL 300 mg tablet 2021-03 00:00: 00 Yes 300mg Take 1 tablet by mouth in the morning. [facility] ascorbic acid, vitamin C, (VITAMIN C) 500 mg tablet 2021-03 00:00: 00 Yes 500mg Take 1 tablet by mouth. [facility] calcium carbonate (CALCIUM 600) 600 mg calcium (1,500 mg) tablet 2021-03 00:00: 00 Yes 600mg Take 1 tablet by mouth in the morning. [facility] dapaglifloz in 5 mg tablet 2021-03 00:00: 00 Yes 5mg Take 1 tablet by mouth in the morning. [facility] doxazosin 8 mg tablet 2021-03 00:00: 00 Yes 8mg Take 1 tablet by mouth at bedtime. [facility] escitalopra m oxalate 10 mg tablet 2021-03 00:00: 00 Yes 10mg Take 1 tablet by mouth in the morning. [facility] ferrous sulfate 325 mg (65 mg iron) EC tablet 2021-03 00:00: 00 Yes 325mg Take 1 tablet by mouth in the morning. [facility] fluticasone -umeclidin- vilanter (TRELEGY ELLIPTA) 100-62.5-25 mcg DsDv 2021-03 00:00: 00 Yes Inhale daily. [facility] glimepiride 2 mg tablet 2021-03 00:00: 00 Yes 2mg Take 1 tablet by mouth daily with breakfast. [facility] Loperamide HCl 2 mg Tab tablet 2021-03 00:00: 00 Yes Take by mouth every 12 (twelve) hours as needed for Other (diarrhea) . [facility] magnesium oxide 400 mg magnesium capsule 2021-03 00:00: 00 Yes Take by mouth. [facility] montelukast 10 mg tablet 2021-03 00:00: 00 Yes 10mg Take 1 tablet by mouth. [facility] nebivoloL 10 mg tablet 2021-03 00:00: 00 Yes 10mg Take 1 tablet by mouth in the morning. [facility] omeprazole 20 mg capsule 2021-03 00:00: 00 Yes 20mg Take 1 capsule by mouth in the morning. [facility] nystatin 100,000 unit/gram powder 2021-03 00:00: 00 Yes Apply to area(s) 2 (two) times daily. [facility] traMADoL 50 mg tablet 2021-03 00:00: 00 Yes 50mg Take 1 tablet by mouth every 8 (eight) hours as needed. [facility] aspirin 81 mg chewable tablet 2021-03 00:00: 00 Yes 81mg Take 1 tablet by mouth in the morning. [facility] busPIRone 10 mg tablet 2021-03 00:00: 00 Yes 10mg Take 1 tablet by mouth in the morning and 1 tablet at noon and 1 tablet in the evening. [facility] gabapentin 100 mg capsule 2021-03 00:00: 00 Yes 100mg Take 1 capsule by mouth in the morning. [facility] hydrALAZINE 25 mg tablet 2021-03 00:00: 00 Yes 50mg Take 2 tablets by mouth every 6 (six) hours. [facility] insulin glargine 100 unit/mL injection 2021-03 00:00: 00 Yes 16U inject 16 Units under the skin in the morning and 16 Units in the evening. [facility] levothyroxi ne 50 mcg tablet 2021-03 00:00: 00 Yes 50ug Take 1 tablet by mouth every morning. [facility] pravastatin 80 mg tablet 2021-03 00:00: 00 Yes 80mg Take 1 tablet by mouth at bedtime. [facility] LOVAZA, omega-3-aci d ethyl esters, 1 gram capsule 2021-03 00:00: 00 Yes 1g Take 1 capsule by mouth in the morning and 1 capsule at noon and 1 capsule in the evening. [facility] sennosides- docusate sodium 8.6-50 mg per tablet 2021-03 00:00: 00 Yes 1{tbl} Take 1 tablet by mouth in the morning and 1 tablet in the evening. [facility] furosemide 20 mg tablet 2021-03 00:00: 00 02-25 05:59 :00 No [id number] 40mg Take 2 tablets by mouth in the morning for 30 days. [facility] lidocaine (LIDODERM) 5 % (700 mg/patch) patch 1 Patch 2021-03 15:15: 00 Yes 1{patch } 1 Patch, Topical, Administer over 12 Hours, DAILY, First dose on Mon01/24/22 at 0915, Until Discontinu ed, Routine [facility] HYDROcodone -acetaminop hen (NORCO 5) 5-325 mg tablet 1 tablet 2021-03 15:05: 34 Yes 1{tbl} 1 tablet, Oral, Q6HPRN, Starting on Mon01/24/22 at 0905, Until Discontinu ed, Routine, Pain (scale 7-10) [facility] NaCl 0.9% (NS) IV infusion 500 mL 2021-03 16:30: 00 01-23 22:00 :00 No 500mL at 100 mL/hr, IV Infusion, ONCE, 1 dose, On 01/23/22 at 1030, Routine [facility] polyethylen e glycol 3350 powder 17 g 2021-03 15:15: 00 Yes 17g 17 g, Oral, DAILY, First dose on Mon01/23/22 at 0915, Until Discontinu ed, Routine [facility] sennosides- docusate sodium (SENOKOT-S) 8.6-50 mg per tablet 1 tablet 2021-03 14:00: 00 Yes 1{tbl} 1 tablet, Oral, BID, First dose (after last modificati on) on Mon01/23/22 at 0800, Until Discontinu ed, Routine [facility] lidocaine (LIDODERM) 5 % (700 mg/patch) patch 1 Patch 2021-03 04:45: 00 01-23 16:19 :00 No 1{patch } 1 Patch, Topical, Administer over 12 Hours, ONCE, 1 dose, On 01/22/22 at 2245, Routine [facility] collagenase (SANTYL) ointment 2021-03 17:30: 00 Yes Topical (Apply To Affected Areas), DAILY, First dose on 01/22/22 at 1130, Until Discontinu ed, Routine [facility] bumetanide (BUMEX) tablet 1 mg 2021-03 15:00: 00 01-23 14:58 :54 No 1mg 1 mg, Oral, QAM+PM, First dose (after last modificati on) on Mon01/22/22 at 0900, Until Discontinu ed, Routine [facility] NaCl 0.9% (NS) IV infusion 500 mL 2021-03 13:45: 00 01-22 18:44 :00 No 500mL at 100 mL/hr, IV Infusion, CONTINUOUS , Starting on 01/22/22 at 0745, Until 01/22/22 at 1244, Routine [facility] polyethylen e glycol 3350 powder 17 g 2021-03 13:04: 00 01-21 16:00 :00 No 17g 17 g, Oral, ONCE, 1 dose, On Mon01/21/22 at 0715, Routine [facility] lidocaine (LIDODERM) 5 % (700 mg/patch) patch 1 Patch 2021-03 07:45: 00 01-20 19:11 :00 No 1{patch } 1 Patch, Topical, Administer over 12 Hours, ONCE, 1 dose, On Mon01/20/22 at 0145, Routine [facility] HYDROcodone -acetaminop hen (NORCO 5) 5-325 mg tablet 1 tablet 2021-03 18:00: 00 Yes 1{tbl} 1 tablet, Oral, Q6H, First dose (after last modificati on) on Mon01/18/22 at 1200, Until Discontinu ed, Routine [facility] insulin lispro (human) (HumaLOG U-100) injection 13 Units 2021-03 18:00: 00 Yes 13U 13 Units, Subcutaneo us, TID MEALS, First dose (after last modificati on) on Mon01/18/22 at 1200, Until Discontinu ed, Routine [facility] insulin glargine (LANTUS U-100) injection 60 Units 2021-03 15:00: 00 Yes 60U 60 Units, Subcutaneo us, DAILY, First dose (after last modificati on) on Mon01/18/22 at 0900, Until Discontinu ed, Routine [facility] magnesium sulfate in water 2 gram/50 mL (4 %) infusion 2 g 2021-03 17:00: 00 01-17 23:31 :00 No 2g 2 g, IV Piggyback, Administer over 60 Minutes, ONCE, 1 dose, On Mon01/17/22 at 1100, Routine [facility] cholecalcif jaya (vitamin D3) tablet 1,000 Units 2021-03 16:15: 00 Yes 1000U 1,000 Units, Oral, DAILY, First dose on Mon01/17/22 at 1015, Until Discontinu ed, Routine [facility] liothyronin e (CYTOMEL) tablet 5 mcg 2021-03 15:00: 00 Yes 5ug 5 mcg, Oral, DAILY, First dose on Mon01/17/22 at 0900, Until Discontinu ed, Routine [facility] HYDROcodone -acetaminop hen (NORCO 5) 5-325 mg tablet 1 tablet 2021-03 14:42: 41 01-18 15:46 :06 No 1{tbl} 1 tablet, Oral, Q6HPRN, Starting on Mon01/16/22 at 0842, Until Mon01/18/22 at 0946, Routine, Pain (scale 4-6) [facility] Sliding Scale Insulin - Lispro (HumaLOG) + Fsbg Testing 2021-03 14:00: 00 Yes Subcutaneo us, TID MEALS+HS, First dose (after last modificati on) on Mon01/16/22 at 0800, Until Discontinu ed, Routine [facility] bumetanide (BUMEX) tablet 2 mg 2021-03 23:00: 00 01-22 13:01 :16 No 2mg 2 mg, Oral, QAM+PM, First dose on 01/15/22 at 1700, Until Discontinu ed, Routine [facility] LOVAZA (omega-3-ac id ethyl esters) capsule 1 g 2021-03 20:00: 00 Yes 1g 1 g, Oral, TID, First dose on Mon01/15/22 at 1400, Until Discontinu ed, Routine [facility] insulin glargine (LANTUS U-100) injection 50 Units 2021-03 15:00: 00 01-18 14:16 :01 No 50U 50 Units, Subcutaneo us, DAILY, First dose (after last modificati on) on 01/15/22 at 0900, Until Discontinu ed, Routine [facility] insulin glargine (LANTUS U-100) injection 20 Units 2021-03 22:30: 00 01-14 21:57 :00 No 20U 20 Units, Subcutaneo us, ONCE NOW, 1 dose, On Mon01/14/22 at 1630, Routine [facility] insulin glargine (LANTUS U-100) injection 30 Units 2021-03 15:00: 00 01-14 21:37 :35 No 30U 30 Units, Subcutaneo us, DAILY, First dose (after last modificati on) on Mon01/14/22 at 0900, Until Discontinu ed, Routine [facility] Sliding Scale Insulin - Lispro (HumaLOG) + Fsbg Testing 2021-03 14:00: 00 01-16 13:24 :34 No Subcutaneo us, Q4H, First dose (after last modificati on) on Mon01/14/22 at 0800, Until Discontinu ed, Routine [facility] Sliding Scale Insulin - Lispro (HumaLOG) + Fsbg Testing 2021-03 06:00: 00 01-14 13:48 :23 No Subcutaneo us, Q4H, First dose (after last modificati on) on Mon01/14/22 at 0000, Until Discontinu ed, Routine [facility] gabapentin (NEURONTIN) capsule 100 mg 2021-03 21:15: 00 Yes 100mg 100 mg, Oral, DAILY, First dose (after last modificati on) on Mon01/13/22 at 1515, Until Discontinu ed, Routine [facility] hydrALAZINE (APRESOLINE ) tablet 25 mg 2021-03 18:00: 00 Yes 25mg 25 mg, Oral, Q6H, First dose (after last modificati on) on Mon01/13/22 at 1200, Until Discontinu ed, Routine [facility] morpHINE (2 mg/mL) injection 2 mg 2021-03 16:15: 00 01-13 16:22 :00 No 2mg 2 mg, Slow IV Push, ONCE, 1 dose, On Mon01/13/22 at 1015, Routine [facility] busPIRone (BUSPAR) tablet 10 mg 2021-03 16:00: 00 Yes 10mg 10 mg, Oral, TID, First dose on Mon01/13/22 at 1000, Until Discontinu ed, Routine [facility] insulin glargine (LANTUS U-100) injection 8 Units 2021-03 16:00: 00 01-14 13:46 :23 No 8U 8 Units, Subcutaneo us, DAILY, First dose on Mon01/13/22 at 1000, Until Discontinu ed, Routine [facility] amLODIPine (NORVASC) tablet 10 mg 2021-03 15:00: 00 Yes 10mg 10 mg, Oral, DAILY, First dose (after last modificati on) on Mon01/13/22 at 0900, Until Discontinu ed, Routine [facility] pravastatin (PRAVACHOL) tablet 40 mg 2021-03 03:00: 00 Yes 40mg 40 mg, Oral, QHS, First dose on Mon01/12/22 at 2100, Until Discontinu ed, Routine [facility] morpHINE (2 mg/mL) injection 2 mg 2021-03 00:45: 00 01-13 00:14 :00 No 2mg 2 mg, Slow IV Push, ONCE, 1 dose, On Mon01/12/22 at 1845, Routine [facility] hydrALAZINE (APRESOLINE ) tablet 50 mg 2021-03 00:00: 00 01-13 13:26 :35 No 50mg 50 mg, Oral, Q6H, First dose (after last modificati on) on Mon01/12/22 at 1800, Until Discontinu ed, Routine [facility] bumetanide (BUMEX) injection 1 mg 2021-03 23:00: 00 01-15 17:03 :14 No 1mg 1 mg, Slow IV Push, QAM+PM, First dose (after last modificati on) on Mon01/12/22 at 1700, Until Discontinu ed, Routine [facility] lidocaine 2% (XYLOCAINE) 20 mg/mL (2 %) injection 15 mL 2021-03 21:00: 00 01-12 20:00 :00 No 15mL 15 mL, Infiltrati on, ONCE, 1 dose, On Mon01/12/22 at 1500, Routine [facility] hydrALAZINE (APRESOLINE ) tablet 25 mg 2021-03 18:15: 00 01-12 21:26 :32 No 25mg 25 mg, Oral, Q6H, First dose on Mon01/12/22 at 1215, Until Discontinu ed, Routine [facility] amLODIPine (NORVASC) tablet 5 mg 2021-03 18:15: 00 01-12 21:26 :32 No 5mg 5 mg, Oral, DAILY, First dose on Mon01/12/22 at 1215, Until Discontinu ed, Routine [facility] pantoprazol e (PROTONIX) EC tablet 40 mg 2021-03 15:00: 00 Yes 40mg 40 mg, Oral, DAILY, First dose on Mon01/12/22 at 0900, Until Discontinu ed, Routine [facility] aspirin chewable tablet 81 mg 2021-03 15:00: 00 Yes 81mg 81 mg, Oral, DAILY, First dose on Mon01/12/22 at 0900, Until Discontinu ed, Routine [facility] sennosides- docusate sodium (SENOKOT-S) 8.6-50 mg per tablet 1 tablet 2021-03 15:00: 00 01-23 13:04 :19 No 1{tbl} 1 tablet, Oral, DAILY, First dose on Mon01/12/22 at 0900, Until Discontinu ed, Routine [facility] sulfur hexafluorid e microsphr (LUMASON) injection 5 mL 2021-03 14:30: 00 01-12 14:30 :00 No [id number] 5mL 5 mL, Intravenou s, ONCE, 1 dose, On Mon01/12/22 at 0830, Routine
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 Restricted medication : DAWIT TAYLOR [facility] heparin (porcine) injection 5,000 Units 2021-03 14:00: 00 Yes 5000U 5,000 Units, Subcutaneo us, Q12H, First dose on Mon01/12/22 at 0800, Until Discontinu ed, Routine [facility] ipratropium -albuteroL (DUONEB) 0.5 mg-3 mg(2.5 mg base)/3 mL nebulizer solution 3 mL 2021-03 14:00: 00 Yes 3mL 3 mL, Inhalation , QID, First dose on Mon01/12/22 at 0800, Until Discontinu ed, Routine [facility] Sliding Scale Insulin - Lispro (HumaLOG) + Fsbg Testing 2021-03 14:00: 00 01-14 03:32 :49 No Subcutaneo us, TID MEALS+HS, First dose on Mon01/12/22 at 0800, Until Discontinu ed, Routine [facility] levothyroxi ne (SYNTHROID) tablet 50 mcg 2021-03 12:00: 00 Yes 50ug 50 mcg, Oral, QAM-0600, First dose on Mon01/12/22 at 0600, Until Discontinu ed, Routine [facility] bumetanide (BUMEX) injection 1 mg 2021-03 07:45: 00 01-12 11:24 :06 No 1mg 1 mg, Slow IV Push, QAM+PM, First dose on Mon01/12/22 at 0145, Until Discontinu ed, Routine [facility] dextrose 10% (D10W) bolus infusion 250 [...] blood glucose is < 80 mg/dL, repeat.
[facility] glucagon (GLUCAGEN DIAGNOSTIC KIT) injection 1 mg 2021-03 06:33: 19 Yes 1mg 1 mg, Intramuscu lar, PRN, Starting on Mon01/12/22 at 0033, Until Discontinu ed, OSKAR, Blood Glucose < or = 70 mg/dL and patient is unable to swallow or has mental changes. [facility] HYDROcodone -acetaminop hen (NORCO 5) 5-325 mg tablet 1 tablet 2021-03 06:32: 32 01-14 06:31 :32 No 1{tbl} 1 tablet, Oral, Q6HPRN, Starting on Mon01/12/22 at 0032, Until Mon01/14/22 at 0031, Routine, Pain (scale 4-6) [facility] acetaminoph en (TYLENOL) tablet 650 mg 2021-03 06:32: 22 Yes 650mg 650 mg, Oral, Q6HPRN, Starting on Mon01/12/22 at 0032, Until Discontinu ed, Routine, Pain (scale 1-3) [facility] NaCl 0.9% (NS) injection 10 mL 2021-03 06:28: 23 Yes 10mL 10 mL, Slow IV Push, PRN, Starting on Mon01/12/22 at 0028, Until Discontinu ed, Routine, line maintenanc e [facility] lidocaine 1% (PF) (XYLOCAINE) injection 5 mL 2021-03 06:28: 23 Yes 5mL 5 mL, Subcutaneo us, PRN, Starting on Mon01/12/22 at 0028, Until Discontinu ed, Routine, Local anesthesia [facility] No known medications 2021-03 00:24: 41 No No known medication s [facility] vancomycin (VANCOCIN) 1,000 mg in NaCl 0.9% (NS) 250 mL VIAL-MATE IV piggyback 2021-03 19:00: 00 01-11 19:21 :00 No 1000mg 1,000 mg, IV Piggyback, ONCE, 1 dose, On Mon01/11/22 at 1300, Administer over 60 Minutes, 250 mL
Reas on for Anti-Infec tive: Documented Infection< br>Documen tapan Infection Site: Skin / Soft Tissue
Duration of Therapy: Other (see Comments) [facility] piperacilli n-tazobacta m (ZOSYN) 3.375 g in NaCl 0.9% (NS) 50 mL MINI-BAG 2021-03 18:00: 00 01-11 18:47 :00 No 3.375g 3.375 g, IV Piggyback, ONCE, 1 dose, On Mon01/11/22 at 1200, Administer over 30 Minutes, 50 mL
Reas on for Anti-Infec tive: Documented Infection< br>Documen tapan Infection Site: Skin / Soft Tissue
Duration of Therapy: Other (see Comments) [facility] levothyroxi ne 50 mcg (0.05 mg) [...] (KCL) 2021-03 14:00: 00 No /= 14 Mauritanian, may dissolve each 20 mEq tablet in 4 oz of water. Allow about 2 minutes for the tablets to disintegra te. Stir before giving to prepare slurry and administer . Please exclude patient's with feeding tube less than 14 Mauritanian (Dobhoff, J-tube, etc) and pediatric and patients. [facility] insulin glargine 2021-03 02:00: 00 No 12 unit, 0.12 mL, Route: SUB-Q, Drug form: SOLN, Bedtime, Start date: 12/21/21 21:00:00 CDT, Duration: 30 day, Stop date: 01/19/22 21:00:00 MOP MAKER, Infuse over: 0 hr, 0 Scott De [...] Duration: 30 day, Stop date: 01/18/22 9:00:00 MOP MAKER, Infuse over: 0 hr, 0 Scott De [...] Duration: 30 day, Stop date: 01/15/22 17:00:00 MOP MAKER Blakeredd escamilla [facility] ZyrTEC 2021-03 14:00: 00 No Notes: (Same As: Zyrtec) Scott escamilla [place] doxazosin 2021-03 14:00: 00 No 8 mg, 1 tab, Route: PO, Drug form: TAB, Daily, kg, Start date: 12/17/21 9:00:00 CDT, Duration: 30 day, Stop date: 01/15/22 9:00:00 MOP MAKER Blakeredd andi De Leon polyethylen e glycol 3350 2021-03 14:00: 00 No Notes: Dissolve in 8 oz of water or juice. (Same as: Miralax) Blakeredd andi De [facility] Vitamin D3 1000 intl units oral tablet 2021-03 14:00: 00 No 25 microgram, 1 tab, Route: PO, Drug form: TAB, Daily, kg, Start date: 12/17/21 9:00:00 CDT, Duration: 30 day, Stop date: 01/15/22 9:00:00 MOP MAKER Blakeredd escamilla [facility] Lexapro 2021-03 14:00: 00 No Notes: (Same as: Lexapro) Blakeredd andi De Leon Trelegy Ellipta 100 mcg-62.5 mcg-25 mcg/inh inhalation powder 2021-03 14:00: 00 No Trelegy Ellipta 100 mcg-62.5 mcg-25 mcg/inh inhalation powder, 1 puff, Route: INHALATION , RDaily, 12/17/21 9:00:00 CDT, Duration: 30 day, Stop date: 01/16/22 8:00:00 MOP MAKER, 0 Blakeredd andi De Leon Lantus 100 units/mL 2021-03 14:00: 00 No 20 unit, Route: SUB-Q, Daily, kg, Start date: 12/17/21 9:00:00 CDT, Duration: 30 day, Stop date: 01/15/22 9:00:00 MOP MAKER Scott De Leon losartan 2021-03 14:00: 00 No 50 mg, 1 tab, Route: PO, Drug form: TAB, Daily, kg, Start date: 12/17/21 9:00:00 CDT, Duration: 30 day, Stop date: 01/15/22 9:00:00 MOP MAKER Scott De Leon Bystolic 2021-03 14:00: 00 [...] Duration: 30 day, Stop date: 01/15/22 9:00:00 MOP MAKER Scott De Leon pravastatin 2021-03 02:00: 00 [...] Duration: 30 day, Stop date: 01/15/22 9:00:00 MOP MAKER Scott De Leon insulin glargine 2021-03 02:00: 00 No Notes: (Same as: Jeff) Do not hold insulin without contacting prescriber WASTE: F/P - Black; E - Municipal Trash Bin "single patient use only" Stable for 28 days at room temperatur e Expires in days from ____Date Blakeredd escamilla [place] montelukast 2021-03 02:00: 00 No Notes: (Same [...] Duration: 30 day, Stop date: 01/15/22 19:00:00 MOP MAKER, 0 Scott De Leon glucagon 2021-03 01:01: 00 No 1 mg, Route: IM, Drug form: PDR/INJ, PRN, kg, PRN Blood Glucose Results, Start date: 12/16/21 20:01:00 CDT, Duration: 30 day, Stop date: 01/15/22 19:00:00 MOP MAKER, 0 Scott De Leon insulin lispro 2021-03 [...] No 20 unit, SUB-Q, BID, 0 Refill(s) Scott De Leon omega-3 polyunsatur ated fatty acids [...] tab, PO, BID, 0 Refill(s) [facility] [place] montelukast 10 mg oral tablet 2021-03 23:44: [...] tab, PO, BID, 0 Refill(s) Scott escamilla [place] Bystolic 10 mg oral tablet 2021-03 23:41: [...] 2021-03 23:19: 00 No Notes: (Same as: [place] 325/5) Do not exceed 4gm/day of acetaminop hen. Scott De Leon cefTRIAXone + sterile water 10 mL 2021-03 14:24: 00 No Notes: (Same As: Rocephin). Use with 100 mL NS and infuse over 30 min MEDICATION WASTE Product Size: 1000 mg Product Wasted: ___ mg Scott De Leno Vital Signs Vital Name Observation Time Observation Value Comments S ource Heart rate 2022-01-25 21:23:00 64 /min [facility] Oxygen saturation in Arterial blood by Pulse oximetry 2022-01-25 21:23:00 98 /min [facility] Systolic blood pressure 2022-01-25 21:16:00 132 mm[Hg] [facility] Diastolic blood pressure 2022-01-25 21:16:00 63 mm[Hg] [place] [facility] Body temperature 2022-01-25 21:16:00 36.06 Lupe [facility] Respiratory rate 2022-01-25 21:16:00 24 /min [facility] Body height 2022-01-12 04:15:00 151.1 cm [facility] Body weight 2022-01-12 04:15:00 87 kg bed scale [facility] BMI 2022-01-12 04:15:00 38.09 kg/m2 [facility] Heart Rate 2021-12-22 20:31:54 [facility] [place] Systolic (mm Hg) 2021-12-22 20:31:50 [facility] [place] Diastolic (mm Hg) 2021-12-22 20:31:50 [facility] Heart Rate 2021-12-22 20:31:50 [facility] [place] Temperature Oral (F) 2021-12-22 20:31:33 97.7 F [facility] [place] Heart Rate 2021-12-22 16:44:52 [facility] [place] Systolic (mm Hg) 2021-12-22 16:44:47 [facility] Diastolic (mm Hg) 2021-12-22 16:44:47 [facility] [place] Temperature Oral (F) 2021-12-22 16:43:33 97.9 F [facility] [place] Systolic (mm Hg) 2021-12-22 12:31:53 [facility] Diastolic (mm Hg) 2021-12-22 12:31:53 [facility] Temperature Oral (F) 2021-12-22 12:30:34 98.1 F [facility] Respitory Rate 2021-12-22 09:50:45 M [facility] Respitory Rate 2021-12-22 04:25:53 [facility] [place] Respitory Rate 2021-12-22 00:48:38 [facility] [place] Temperature Oral (F) 2021-12-21 20:56:00 98.0 F [facility] Temperature Oral (F) 2021-12-20 08:52:55 98.6 F [facility] [place] Respitory Rate 2021-12-20 06:00:00 [facility] [place] Systolic (mm Hg) 2021-12-20 06:00:00 [facility] Diastolic (mm Hg) 2021-12-20 06:00:00 [facility] [place] Respitory Rate 2021-12-20 05:00:00 M [facility] Systolic (mm Hg) 2021-12-20 05:00:00 [facility] Diastolic (mm Hg) 2021-12-20 05:00:00 [facility] Temperature Oral (F) 2021-12-20 04:44:23 98 F [facility] [place] Respitory Rate 2021-12-20 04:00:00 [facility] Systolic (mm Hg) 2021-12-20 04:00:00 [facility] Diastolic (mm Hg) 2021-12-20 04:00:00 [facility] [place] Temperature Oral (F) 2021-12-20 01:02:00 97.8 F [facility] [place] Height 2021-12-17 09:02:00 152.4 cm [facility] Weight 2021-12-17 09:02:00 [facility] BMI Calculated 2021-12-17 09:02:00 [facility] Heart Rate 2021-12-16 08:40:00 [facility] Procedures Procedure Date / Time Performed Performing Clinician Source POCT GLUCOSE (AUTOMATED) 2022-01-25 23:49:00 Jackie Singh [facility] POCT GLUCOSE (AUTOMATED) 2022-01-25 18:00:00 Jackie Singh [facility] POCT GLUCOSE (AUTOMATED) 2022-01-25 14:04:00 Jackie Singh [facility] POCT GLUCOSE (AUTOMATED) 2022-01-25 01:47:00 Jackie Singh [facility] POCT GLUCOSE (AUTOMATED) 2022-01-24 22:47:00 Jackie Singh [facility] POCT GLUCOSE (AUTOMATED) 2022-01-24 17:54:00 Jackie Singh [facility] POCT GLUCOSE (AUTOMATED) 2022-01-24 14:06:00 Jackie Singh [facility] POCT GLUCOSE (AUTOMATED) 2022-01-24 02:26:00 Jackie Singh [facility] POCT GLUCOSE (AUTOMATED) 2022-01-23 23:24:00 Jackie Singh [facility] POCT GLUCOSE (AUTOMATED) 2022-01-23 18:10:00 Jackie Singh [facility] POCT GLUCOSE (AUTOMATED) 2022-01-23 15:14:00 Jackie Singh [facility] BASIC METABOLIC PANEL (NA, K, CL, CO2, GLUCOSE, BUN, CREATININE, CA) 2022-01-23 13:26:00 Dali Garduno [facility] CBC WITHOUT DIFF 2022-01-23 13:26:00 Ana María Garduno ra [facility] N-TERMINAL PRO-BNP 2022-01-23 13:26:00 Dany Garduno [facility] POCT GLUCOSE (AUTOMATED) 2022-01-23 03:06:00 Jackie Singh [facility] BLOOD CULTURE SCREEN 2022-01-23 01:44:00 Sherrie Garduno [facility] POCT GLUCOSE (AUTOMATED) 2022-01-22 23:43:00 Jackie Singh [facility] CREATININE, URINE RANDOM 2022-01-22 18:59:00 Abril hidalgo Dali [facility] UREA NITROGEN, URINE RANDOM 2022-01-22 18:59:00 Shaan Dali [facility] BLOOD CULTURE SCREEN 2022-01-22 18:56[facility]00 [facility] 2022-01-22 18:11:00 Jackie Singh [facility] URINALYSIS 2022-01-22 17:35:00 [facility] 2022-01-22 17:35:00 Dali Garduno [facility] POCT GLUCOSE (AUTOMATED) 2022-01-22 16:20:00 Jackie Singh [facility] MAGNESIUM 2022-01-22 10:37:00 [facility]OLIC PANEL (NA, K, CL, CO2, GLUCOSE, BUN, CREATININE, CA) 2022-01-22 10:37:00 Joey Hobson [facility] CBC WITH DIFF 2022-01-22 10:37:00 Joey Hobson [facility] POCT GLUCOSE (AUTOMATED) 2022-01-22 03:07:00 Jackie Singh [facility] POCT GLUCOSE (AUTOMATED) 2022-01-21 22:47:00 [facility] POCT GLUCOSE (AUTOMATED) 2022-01-21 18:04:00 Jackie [facility] POCT GLUCOSE (AUTOMATED) 2022-01-21 16:14:00 Jackie Singh [facility] XR CHEST 1 VW 2022-01-21 14:06:00 Dali Garduno [facility] POCT GLUCOSE (AUTOMATED) 2022-01-21 01:59:00 Jackie Singh [facility] POCT GLUCOSE (AUTOMATED) 2022-01-20 22:47:00 Jackie [facility] GLUCOSE 2022-01-20 20:33:00 Rodriguez, Luz [facility] PROTEIN TOTAL 2022-01-20 20:33:00 Rodriguez, [facility] LACTATE DEHYDROGENASE 2022-01-20 20:33:00 Rodriguez, Janiya burgos [facility] XR CHEST 1 VW 2022-01-20 20:14:00 [facility]LE[facility] FLUID 2022-01-20 19:47:00 Rodriguez, Luz [facility] AMYLASE BODY FLUID 2022-01-20 19:30:00 [facility] 2022-01-20 19:30:00 Rodriguez, Luz [facility] T.PROTEIN BODY FLUID 2022-01-20 19:30:00 Rodriguez, Janiya andi [facility] LDH TOTAL BODY FLUID 2022-01-20 19:30:00 Rodriguez, Zhen escamilla [facility] BODY FLUID DIRECT COUNT 2022-01-20 19:30:00 Rodriguez, Serina omar [facility] BODY FLUID (BACTEC BOTTLE) 2022-01-20 19:30:00 Pedro Cheek [facility] BODY FLUID FUNGUS CULTURE (BACTEC BOTTLE) 2022-01-20 19:30:00 Pedro Cheek [facility] POCT GLUCOSE (AUTOMATED) 2022-01-20 17:58:00 Jackie Singh [facility] POCT GLUCOSE (AUTOMATED) 2022-01-20 15:13:00 Jackie Singh [facility] LIPID PANEL (19934)(TOTAL CHOLESTEROL, TRIGLYCERIDES, HDL) 2022-01-20 11:08:00 Joey Hobson [facility] EXTRA TUBE LT. GREEN 2022-01-20 11:08:00 Shorty Cheek [facility] CBC WITH DIFF 2022-01-20 10:09:00 Dali Garduno [facility] POCT GLUCOSE (AUTOMATED) 2022-01-20 04:43:00 Jackie Singh [facility] POCT GLUCOSE (AUTOMATED) 2022-01-20 02:00:00 [facility] POCT GLUCOSE (AUTOMATED) 2022-01-19 18:41:00 Jackie Singh [facility] XR CHEST 1 VW 2022-01-19 16:11:00 Dali Garduno [facility] POCT GLUCOSE (AUTOMATED) 2022-01-19 15:15:00 Jackie Singh [facility] HOME HEALTH - OTHER 2022-01-19 06:01:00 Doctor Michael vallejo, [place] [facility] POCT GLUCOSE (AUTOMATED) 2022-01-19 03:29:00 Jacike Singh [facility] POCT GLUCOSE (AUTOMATED) 2022-01-18 23:40:00 Jackie Singh [facility] POCT GLUCOSE (AUTOMATED) 2022-01-18 18:20:00 [facility] POCT GLUCOSE (AUTOMATED) 2022-01-18 14:13:00 Jackie Singh [facility] CBC WITH DIFF 2022-01-18 12:24:00 Dali Garduno [facility] POCT GLUCOSE (AUTOMATED) 2022-01-18 05:47:00 Jackie [facility] POCT GLUCOSE (AUTOMATED) 2022-01-17 22:57:00 Francisco [facility] POCT GLUCOSE (AUTOMATED) 2022-01-17 18:51[facility]00 [facility] POCT GLUCOSE (AUTOMATED) 2022-01-17 15:01:00 Francisco [facility] MAGNESIUM 2022-01-17 12:00:00 Hieu Hoang [facility] BASIC METABOLIC PANEL (NA, K, CL, CO2, GLUCOSE, BUN, CREATININE, CA) 2022-01-17 12:00:00 Viktor, [facility] CBC WITHOUT DIFF 2022-01-17 12:00:00 Hieu Hoang [facility] POCT GLUCOSE (AUTOMATED) 2022-01-17 04:08:00 [facility] POCT GLUCOSE (AUTOMATED) 2022-01-16 22:06:00 Francisco [facility] POCT GLUCOSE (AUTOMATED) 2022-01-16 17:29:00 Francisco [facility] POCT GLUCOSE (AUTOMATED) 2022-01-16 13:53:00 Francisco [facility] MAGNESIUM 2022-01-16 12:23:00 Hieu Hoang [facility] BASIC METABOLIC PANEL (NA, K, CL, CO2, GLUCOSE, BUN, CREATININE, CA) 2022-01-16 12:23:00 Viktor [facility] CBC WITH DIFF 2022-01-16 12:23:00 Viktor Hieu [facility] VITAMIN D, 25-OH 2022-01-16 12:23:00 Felicitas Olmos [facility] POCT GLUCOSE (AUTOMATED) 2022-01-16 10:56:00 [facility] POCT GLUCOSE (AUTOMATED) 2022-01-16 07:17:00 [facility] POCT GLUCOSE (AUTOMATED) 2022-01-16 04:19:00 [facility]SE (AUTOMATED) 2022-01-15 23:21:00 [facility] POCT GLUCOSE (AUTOMATED) 2022-01-15 23:15:00 [facility] POCT GLUCOSE (AUTOMATED) 2022-01-15 18:04:00 [facility] POCT GLUCOSE (AUTOMATED) 2022-01-15 16:03:00 [facility] POCT GLUCOSE (AUTOMATED) 2022-01-15 13:58:00 [facility] MAGNESIUM 2022-01-15 10:35:00 [facility] BASIC METABOLIC PANEL (NA, K, CL, CO2, GLUCOSE, BUN, CREATININE, CA) 2022-01-15 10:35:00 Dani Delgado [facility] CBC WITHOUT DIFF 2022-01-15 10:35:00 Magy Delgado [facility] FREE T3 2022-01-15 10:35:00 Felicitas Olmos [facility] POCT GLUCOSE (AUTOMATED) 2022-01-15 10:13:00 [facility] POCT GLUCOSE (AUTOMATED) 2022-01-15 06:23:00 [facility] POCT GLUCOSE (AUTOMATED) 2022-01-15 02:10:00 [facility] POCT GLUCOSE (AUTOMATED) 2022-01-14 23:04:00 [facility] POCT GLUCOSE (AUTOMATED) 2022-01-14 21:49:00 [facility] POCT GLUCOSE (AUTOMATED) 2022-01-14 17:46:00 [facility] POCT GLUCOSE (AUTOMATED) 2022-01-14 14:09:00 [facility] POCT GLUCOSE (AUTOMATED) 2022-01-14 11:56:00 [facility] POCT GLUCOSE (AUTOMATED) 2022-01-14 10:50:00 Jackie Singh [facility] PHOSPHORUS 2022-01-14 09:40:00 Huber Packer [facility] MAGNESIUM 2022-01-14 09:40:00 Dani Delgado [facility] BASIC METABOLIC PANEL (NA, K, CL, CO2, GLUCOSE, BUN, CREATININE, CA) 2022-01-14 09:40:00 Dani Delgado [facility] CBC WITHOUT DIFF 2022-01-14 09:40:00 Magy Delgado [facility] POCT GLUCOSE (AUTOMATED) 2022-01-14 06:31:00 [facility] POCT GLUCOSE (AUTOMATED) 2022-01-14 03:03:00 Jackie [facility] POCT GLUCOSE (AUTOMATED) 2022-01-13 23:14:00 Jackie [facility] POCT GLUCOSE (AUTOMATED) 2022-01-13 21:34:00 Jackie [facility] POCT GLUCOSE (AUTOMATED) 2022-01-13 19:37:00 Jackie [facility] POCT GLUCOSE (AUTOMATED) 2022-01-13 18:00:00 Jackei [facility] POCT GLUCOSE (AUTOMATED) 2022-01-13 15:39:00 [facility] BASIC METABOLIC PANEL (NA, K, CL, CO2, GLUCOSE, BUN, CREATININE, CA) 2022-01-13 12:58:00 Huber Packer [facility] CBC WITH DIFF 2022-01-13 12:57:00 Huber Packer [facility] POCT GLUCOSE (AUTOMATED) 2022-01-13 03:56:00 [facility] US RETROPERITONEAL LIMITED 2022-01-12 22:43:27 Josue [facility] UREA NITROGEN, URINE RANDOM 2022-01-12 19:07:00 Josue [facility] SODIUM, URINE RANDOM 2022-01-12 19:07:00 Glenn Salas [facility] PROTEIN CREAT RATIO URINE RANDOM 2022-01-12 19:07:00 [facility] ([facility]OMATED) 2022-01-12 19:04:00 Jackie Singh [facility] PHOSPHORUS 2022-01-12 19:02:00 Huber Packer [facility] BASIC METABOLIC PANEL (NA, K, CL, CO2, GLUCOSE, BUN, CREATININE, CA) 2022-01-12 19:02:00 [facility] VW 2022-01-12 16:40:00 Rodolfo Scales [facility] CYTO PLEURAL FLUID 2022-01-12 15:53:00 Rodriguez, Luz [facility] GLUCOSE BODY FLUID 2022-01-12 15:30:00 Rodriguez, Luz [facility] T.PROTEIN BODY FLUID 2022-01-12 15:30:00 Rodriguez, Zhen escamilla [facility] BODY FLUID DIRECT COUNT 2022-01-12 15:30:00 Rodriguez, Serina omar [facility] BODY FLUID (BACTEC BOTTLE) 2022-01-12 15:30:00 Gumaro Centeno [facility] AFB CULTURE 2022-01-12 15:30:00 Jensen Huynh [facility] LDH TOTAL BODY FLUID 2022-01-12 15:30:00 Rodriguez, Zhen escamilla [facility] BODY FLUID FUNGUS CULTURE (BACTEC BOTTLE) 2022-01-12 15:30:00 Gumaro Huynh [facility] TRANSTHORACIC ECHO (TTE) COMPLETE W/ CONTRAST 2022-01-12 14:17:53 Josue [facility] PROTEIN TOTAL 2022-01-12 10:24:00 Rodriguez, [facility] URIC ACID 2022-01-12 10:24:00 Owen Salas [facility] MAGNESIUM 2022-01-12 10:24:00 Dosheather [facility] RHEUMATOID FACTOR 2022-01-12 10:24:00 Huber Packer [facility] FREE T4 2022-01-12 10:24:00 Felicitas Olmos [facility] THYROID STIMULATING HORMONE 2022-01-12 10:24:00 [facility] BASIC METABOLIC PANEL (NA, K, CL, CO2, GLUCOSE, BUN, CREATININE, CA) 2022-01-12 10:24:00 [facility] VANCOMYCIN RANDOM LEVEL 2022-01-12 10:24:00 Dostal Ca rlos [facility] CBC WITH DIFF 2022-01-12 10:24:00 [facility] ANTI-NUCLEAR ANTIBODY SCREEN 2022-01-12 10:24:00 Huber Packer [facility] ANTI-NUCLEAR ANTIBODY-PATHOLOGIST INTERPRETATION 2022-01-12 10:24:00 Birdie Huber [facility] SHANNAN AURIS CULTURE 2022-01-12 07:09:00 Jerome Salas [facility] AC PANEL 20 + LACTIC ACID 2022-01-12 00:16:00 Brian Latham [facility] MAGNESIUM 2022-01-12 00:10:00 DosOwen romero [facility] TROPONIN I 2022-01-12 00:10:00 [facility] COMP. METABOLIC PANEL ([id number]) 2022-01-12 00:10:00 Brian Latham [facility] CBC WITH DIFF 2022-01-12 00:10:00 Brian Latham [facility] GLYCOSYLATED HEMOGLOBIN (A1C) 2022-01-12 00:10:00 Dosheather [facility] N-TERMINAL PRO-BNP 2022-01-12 00:10:00 Brian Latham [facility] CRITICAL CARE 2022-01-11 21:59:38 Brian Latham [facility] CT THORAX WO CONTRAST 2022-01-11 16:11:00 Khang Latham [facility] CT FEMUR RIGHT WO CONTRAST 2022-01-11 16:11:00 Brian Latham [facility] BLOOD CULTURE SCREEN 2022-01-11 14:53:00 Gabriele Latham [facility] XR CHEST 1 VW 2022-01-11 14:45:00 Brian Latham [facility] AC PANEL 20 + LACTIC ACID 2022-01-11 14:45:00 Brian Latham [facility] HB ECG ROUTINE & RHYTHM STRIP 2022-01-11 14:43:37 Brian Latham [facility] BLOOD CULTURE SCREEN 2022-01-11 14:36:00 Gabriele Latham [facility] LIPASE 2022-01-11 14:36:00 [facility] TROPONIN I 2022-01-11 14:36:00 Brian [facility] COMP. METABOLIC PANEL ([id number]) 2022-01-11 14:36:00 Brian Latham [facility] CBC WITH DIFF 2022-01-11 14:36:00 Brian Latham [facility] PROTHROMBIN TIME / INR 2022-01-11 14:36:00 Cb Latham [facility] ACTIVATED PARTIAL THRMPLAS MURALI 2022-01-11 14:36:00 Brian Latham [facility] N-TERMINAL PRO-BNP 2022-01-11 14:36:00 Brian Latham [facility] EXTERNAL PROVIDER RECORDS 2022-01-11 06:01:00 Do ctor Unassigned, [place] [facility] EMERGENCY DEPARTMENT DOCUMENTS 2022-01-11 06:01:00 Doctor Unassigned, [place] [facility] HOME HEALTH - OTHER 2021-12-23 05:01:00 Doctor Michael haskinsgnsakina, [place] [facility] Encounters Start Date/Time End Date/Time Encounter Type Admission Type Attending Clinicians Care Facility Care Department Encounter ID Source 2021-12-23 12:57:25 Outpatient [facility] [id number] [facility] 2022-02-01 00:00:00 2022-02-01 00:00:00 Case Management Renetta Killian [facility] [facility] 1.2.840.114 350.1.13.10 4.2.7.2.686 [id number] [facility] 2022-01-26 00:00:00 2022-01-26 00:00:00 Transition of Care Inna Ortega 1.2.840.114 350.1.13.10 4.2.7.2.686 [id number] [facility] 2022-01-11 08:31:00 2022-01-25 18:40:00 Inpatient Michael [facility] [id number] [facility] 2022-01-11 08:31:00 2022-01-25 18:40:00 Hospital Encounter Brian Latham, Frank Garcia, Renee Cheek, Pedro Villalobos, [facility] 1.2.840.114 350.1.13.10 4.2.7.2.686 [id number] [facility] 2021-12-23 00:00:00 2021-12-23 00:00:00 Orders Only Doctor Unassigned, [place] [facility] 1.2.840.114 350.1.13.10 4.2.7.2.686 [id number] [facility] 2021-12-16 08:40:00 2021-12-22 22:00:00 Inpatient [facility] [id number] 86 [facility] 2021-12-16 19:11:00 2021-12-22 17:00:00 Inpatient E LEILA YOUNGER [facility] MED 2286 [facility] Results Test Description Test Time Test Comments Results Result Co mments Source [facility] GLUCOSE (AUTOMATED)2022-01-25 18:02:16* Test Item Value Reference Range Interpretation Comme nts POCT GLU (test code = 9711183459) 155 mg/dL 70-110 H Lab Interpretation (test cod e = 45897-3) Abnormal [facility] GLUCOSE (AUTOMATED)2022-01-25 14:06:14* Test Item Value Reference Range Interpretation Comme nts POCT GLU (test code = 3380418939) 180 mg/dL 70-110 H Lab Interpretation (test cod e = 86398-0) Abnormal [facility] GLUCOSE (AUTOMATED)2022-01-25 01:48:08* Test Item Value Reference Range Interpretation Comme nts POCT GLU (test code = 1398443204) 106 mg/dL 70-110 Lab Interpretation (test cod e = 13815-1) Normal [facility] GLUCOSE (AUTOMATED)2022-01-24 22:48:46* Test Item Value Reference Range Interpretation Comme nts POCT GLU (test code = 6485350017) 170 mg/dL 70-110 H Lab Interpretation (test cod e = 63277-2) Abnormal [facility] GLUCOSE (AUTOMATED)2022-01-24 17:56:39* Test Item Value Reference Range Interpretation Comme nts POCT GLU (test code = 2298673325) 212 mg/dL 70-110 H Lab Interpretation (test cod e = 67347-2) Abnormal [facility] GLUCOSE (AUTOMATED)2022-01-24 14:08:13* Test Item Value Reference Range Interpretation Comme nts POCT GLU (test code = 8405011049) 166 mg/dL 70-110 H Lab Interpretation (test cod e = 06738-4) Abnormal [facility] GLUCOSE (AUTOMATED)2022-01-24 02:29:06* Test Item Value Reference Range Interpretation Comme nts POCT GLU (test code = 0438298487) 164 mg/dL 70-110 H Lab Interpretation (test cod e = 77168-7) Abnormal [facility] GLUCOSE (AUTOMATED)2022-01-23 23:25:34* Test Item Value Reference Range Interpretation Comme nts POCT GLU (test code = 8112929489) 134 mg/dL 70-110 H Lab Interpretation (test cod e = 58470-2) Abnormal [facility] GLUCOSE (AUTOMATED)2022-01-23 18:12:25* Test Item Value Reference Range Interpretation Comme nts POCT GLU (test code = 9861451593) 151 mg/dL 70-110 H Lab Interpretation (test cod e = 60683-6) Abnormal [facility] GLUCOSE (AUTOMATED)2022-01-23 15:15:27* Test Item Value Reference Range Interpretation Comme nts POCT GLU (test code = 7308165408) 153 mg/dL 70-110 H Lab Interpretation (test cod e = 18495-7) Abnormal [facility] GLUCOSE (AUTOMATED)2022-01-23 03:07:13* Test Item Value Reference Range Interpretation Comme nts POCT GLU (test code = 5807897565) 175 mg/dL 70-110 H Lab Interpretation (test cod e = 62996-2) Abnormal [facility] GLUCOSE (AUTOMATED)2022-01-22 23:44:01* Test Item Value Reference Range Interpretation Comme nts POCT GLU (test code = 6937368959) 260 mg/dL 70-110 H Lab Interpretation (test cod e = 20082-0) Abnormal [facility] GLUCOSE (AUTOMATED)2022-01-22 18:13:08* Test Item Value Reference Range Interpretation Comme nts POCT GLU (test code = 7701616010) 302 mg/dL 70-110 H Lab Interpretation (test cod e = 15805-8) Abnormal [facility] GLUCOSE (AUTOMATED)2022-01-22 16:21:54* Test Item Value Reference Range Interpretation Comme nts POCT GLU (test code = 1523062935) 314 mg/dL 70-110 H Lab Interpretation (test cod e = 61359-3) Abnormal [facility] METABOLIC PANEL (NA, K, CL, CO2, GLUCOSE, BUN, CREATININE, CA)2022-01-22 11:21:18* Test Item Value Reference Range Interpretation Comme nts NA (test code = 6105581593) 130 mmol/L 135-145 L K (test code = 8104520439) 4.4 mmol/L 3.5-5.0 CL (test code = 9065543218) 87 mmol/L 98-108 L CO2 TOTAL (test code = 0000489288) 36 mmol/L 23-31 H AGAP (test code = 6826789578) 2-16 BUN (test code = 5140687916) 93 mg/dL 7-23 H GLUCOSE (test code = 6591279197) 217 mg/dL 70-110 H CREATININE (test code = 7411320334) 2.02 mg/dL 0.50-1.04 H CALCIUM (test code = 4063655594) 8.4 mg/dL 8.6-10.6 L eGFR (test code = 9887089420) mL/min/1.73m2 LINDA (test code = LINDA) Association [...] imaging tests). Lab Interpretation (test code = 84085-7) [facility] 11:21:18* Test Item Value Reference Range Interpretation Comme nts MAGNESIUM (test code = 8674184783) 1.8 mg/dL 1.7-2.4 Lab Interpretation (test cod e = 61405-4) Normal [facility] WITH [id number] 11:00:39* Test Item Value Reference Range Interpretation [...] 31.6 g/dL 31.6-35.1 RDW-SD (test code = 68164-9) 51.3 fL 39.0-49.9 H RDW-CV (test code = 788-0) 15.7 % 12.0-15.5 H PLT (test code = 777-3) See_Comment [Automated message] The system which generated this result transmitted reference range: 166 - 358 10*3/?L. The reference range was not used to interpret this result as normal/abnormal. MPV (test code = 13666-6) 12.2 fL 9.5-12.9 NRBC/100 WBC (test code = 0486915500) See_Comment [Automated message] The system which generated this result transmitted reference range: 0.0 - 10.0 /100 WBCs. The reference range was not used to interpret this result as normal/abnormal. NRBC x10^3 (test code = 6222610185) See_Comment [Automated message] The system which generated this result transmitted reference range: 10*3/?L. The reference range was not used to interpret this result as normal/abnormal. GRAN MAT (NEUT) % (test code = 770-8) 82.5 % IMM GRAN % (test code = 7333637079) 0.60 % LYMPH % (test code = 736-9) 9.9 % MONO % (test code = 5905-5) 6.2 % EOS % (test code = 713-8) 0.5 % BASO % (test code = 706-2) 0.3 % GRAN MAT x10^3(ANC) (test code = 0809828585) 14.03 10*3/uL 1.88-7.09 H IMM GRAN x10^3 (test code = 9092638662) 0.10 10*3/uL 0.00-0.06 H LYMPH x10^3 (test code = 731-0) 1.69 10*3/uL 1.32-3.29 MONO x10^3 (test code = 742-7) 1.05 10*3/uL 0.33-0.92 H EOS x10^3 (test code = 711-2) 0.08 10*3/uL 0.03-0.39 BASO x10^3 (test code = 704-7) 0.05 10*3/uL 0.01-0.07 Lab Interpretation (test code = 97232-2) [facility] 03:09:06* Test Item Value Reference Range Interpretation Comme nts POCT GLU (test code = 2615485583) 73 mg/dL 70-110 Lab Interpretation (test cod e = 37467-9) Normal [facility] Wdrgb5923-73-67 00:08:07* Test Item Value Reference Range Interpretation Comme nts Case Report (test code = 5986420138) Non-Gynecologic Cytology ?Case: [id number] ?Authorizing Provider: ?Luther Conner MD Collected: ? 01/20/2022 1347 ?Ordering Location: ? ? [facility] Received: ?01/21/2022 1011 ? (ERIN 11D) ?Specimen: ? ?PLEURAL, LEFT, EFFUSION ? Final Diagnosis (test code = 7567534642) n5wglIAgLMIyi8lwDLEzb GFuZzEwMzNcZnRuYmpcdW MxIHtccnRmMVxlcGljMTA mCFNoRA9kxEmhjEv1uGqe SNKtmiO2bMOcWZlob4buE WD2e8jvbwcfVZYbIVxqUg 9udHRibHtcZjAgQXJpYWw 8nI01TKTzeM7yjQJhJSw6 XHBhcGVydzEyMjQwXHBhc KEprRC8NJNaUM3wovxqDS deCWmkLPJxkpD3XGLfrNX gD5OaGQCcJS4waiglQMW4 DPwfROZaLCO3CuCzXTIvy 7Gijwd1TuIeuHXzXYvhzK FpblxmczIwXHBhclxiIEE uIFBMRVVSQSwgTEVGVDsg USbFUqPIW9POZqMNE1uAU EZMVUlEOlxwYXIgICAgIC KyEEcAWucRLB7OFRlEVup xDNaJHPyJLOgTESbKC1tR RAIjLDPsvyDkSHDgWA1oP gKLTFYYTeHyCj7TSI5MVS yCMrJQIEQTUJlKXsYnM4Q FTHOCLJ7DNwYxDLUktucp OIBrJjTpHpCdKfKIz9Vut CcdQ27aqrGpcUnuGBGrJT QnTeJ1YrWrYbBhYEJ1KYh mZP6yzXGcUHSryrLqLzkm tpAyMIArsj07FEF2ZrKte 5D7HPHtOpBfSUVdDS4rnM cxGFSsUQ7oSLKmC0srrQ3 nogn8XqBiBFSaEvX3CDSn wfJ0Xzs6JIJoTMaqs7hgv 7QpD7XenLWleKp1r1zbIJ KkRbW0lFIvLVczU8efwuF lhZDqIVGuBEx1iLkjXgXi IMZlb0wnjxMjQkAvZRBmO SIhFFGiiKnbsyk0fR52YH OvnA8jaVMfGZaxarWtFkM 4GGgrXDSzXbH4AZNfbTEa MCHeA5foMMJrWPyqQWUiI UwomRVmVSK6uDrkr4J6rK VzaGVldHtcZjBcZnMyOCB Ny3ExKLy2nQrsE7JfLWOd QeK8rDQsUWKvNZtxDTJhV XRfboC8nM04QXxikbX9xO Rvh9Gbq27aq951wM6htVO wDXC4ALVdRWUaxPKcGYTz CNP3NQByiBWeA1yqEYGjP A4hdmyfPUqxLOjlCLIylS G4MTEhxWDsC3DiUATfLJs hAICgkzc1DuErKs2xcSDj yWaaVLrwm0gsz3dwzOJcP bm0CKGgTcHgGcjnQKxvo7 Ylq9fcXTBrei6cONB2eFJ xeRlao1K3mTFhFAUxrWCb wxWnFKSuGvJ7UIzpWL4jy l95WNZcCGV8mx5qqFUdyN ioxtQuzHKcRVbtE2XlALU st053AROjP6YvIDDid9Z9 xyXaEqAqQRXadUF7reY4R AWoDQq4kLDhwpG5aeJinV GkL7gnmZ9kADOzZL7rozt wx9xiIWnhXIzwQJJdzCB3 pkY0VAGpgMMjJ7OstT6gE NNzAGzrDWWsdga2HzCmOg 9vdGVyeTcyMFxzYmtwYWd lXHBnbmNvbnRccGduZGVj XHBsYWluXHBsYWluXGYwX OCpKsAizIeyoKijwC3fCc DlQjIrJFihBR7gVLLpN6m aeCWpTMDwMRQgW4saWeKd kO6llUroNCeqPiMjLsHqL FxwYXIgSSBoYXZlIHBlcn FhqaJsdWxpdrM0kMQ9PSP zYQgaRHRkLSMnlTMtns3m hMbuRLAmCU3zCAAnyaCrE YappWhdURqjFOM8MAXfvQ VudHMgbWFkZSBieSByZXN iNJCihJKgITXsnYgvn1Jw f0SzsPJ3uV0fy4guc9IlZ RDhaAH2HI07coW5yR1bUL ZoWS4tGUXkAG6cdEVeqBD iJHMwv32stLrfnvIlJRFr cnQuXHBsYWluXGYyXGZzM jhcbGFuZzEwMzNcaGljaF uaDprdAqUyTLGiIEcsL4s uXjCpNqMgBCnqJEQ1nV== Final Diagnosis Comment (test code = 9458829256) k8xpqAQqCAWxoFFkEHVsI GdbofCiQTVvkOIyH5Jrqx jyYWpdCE9vPP4zpCznnCP xdADbWTFzXeWfq8unk727 kNQbm8vpQBUZvpbgrNm5o HtbN88xc4J5KsjfG39wfC ZxYHZ5XAGkWYZefSQyCQO sYER4YWPwsNMnL9wgGZBa QR5cuzfqMFifFGbxVDNrm SC8GZKhfGYkO8LpPTVuFB vtYZYbvtg2EkUmMa9lqEZ yeTcyMFxwYXJkXHBsYWlu OZRuBmUkF46xESImAVRjf 7vxPgYyqAwdNPk1aYLpo7 C1vNXnSMJgzHF5xV0jbOR rnegfWS5rOHSqDSF5mWNl XA3zh190pQUesTZsRMWso MikWhIWHJzmkXr8FKAzq7 SacGCgvJpyWI20YWDqgJz zLlxwYXJ9 Clinical Information (test code = 2535230583) Clinical Hx: 76 yo F w/ exudative pleural effusion Gross Description (test code = 0600195457) h5frbGYcHODnkYJHFKPkC ZSgBL6cbEugxZx8fDypUO VovfF6lBZyXRufe8gaPLH 6e5ihhkBDRfbeOWUoCNox AQEosdgvUlT5IHfpODMgv hqiENx3KRwhZDZilGA2QA GwfUYmG6XrJXWpTZ9twzr 5MFV4QZffIEYgOpQ4RYIs IdRoEqgxZKz9IJDawkR0Q cz1DXFqXCQhhNFar4A5MO cemrzcGBYimWRiH783DPo sz7GvhHXcTWqgnMRyKLZR XsmpOtmivPwil6YlnIHvC GlkIDUxMDAwIFxcbmggXF j6EDLoWRutuXMpAV8acDe cGebazJryp0WtgZEmQNje BJLzKDRgKFytQASaWX0XA jFtKDU5BTn0GLEnPGh5AY f6UY2QOkIoIAYvWQL8HLR 0KqLqPJk3MQxoVD2JDTT5 LruzWBw0HTpqDNVmFYFaU Ji8BNYuRWjoZPSknZHuOG xcZnMgMTAgXFxmbCBcXG5 jfVxwbGFpblxmczIwXHBh ciANClxwbGFpblxlcGljT mVzdERvYzEgDQpcbHRycG FyXGxpbjBccmluMCANClx sdHJjaFxmczIyXHBhciAN CkExLiAgUExFVVJBLCBMR TMEWqTZIM0OQLDVXuAPA6 lTIEZMVUlEXHBhciANClJ kS0EvqiFjZKXoKCTrMAuh ZZMsKDOtP5VhbtTbUjIrQ X1hFQMiQhd7gEUmQSYuvv NRUvLoYVIjwcNbDTQhg2v pZGVzICgxIFBhcGFuaWNv iZOnaAJkoYEat8DhdhilC XLRz02csu50t9z1HWH4mV 5wxXtsFRYcUPWmLHJgvN4 befTkZUVkAMWkafJ9tE3m YD0TEYVyhQKEZRQ3ZC3rW Bq3UGuaKSFvX9QgG7Txrx LddLCjZAUwdqHmp3vnPRC 1XHNsbXVsdDBcZnMxNlxw MTP3BETjXNwxNP6EHTEeN IG0QNokaU88zVLeJI6AUP WzNAliXOCaXWFcvsT4JGG wjSYrFOE6NI6mpLogaXCp pyckrxB2BS7FqW== Disclaimer (test code = 3260652008) w5fyyGXiVXHct4anPYZvi GFuZzEwMzNcZnRuYmpcdW UbVTsieqFsJZucv0YeN6V yMjAwMFxhbnNpXGRlZmxh wvkrUWWxPSB8fgRjRFTqS PhbWAQxUCodVf7gbBVsbW dmWrApRSUyu4kgbqJNSWa fTsIsO886QLTlTLhxo4ys p3RnAWYbgRDoo5K5CZDUy aehfFj8uBtvJ36qz5A0Ji keC5zsPUZeBMYhP2VwCB7 qVKHnHfl2HSJ1EAM2QYKn EKJpT8CdEV0iFSIujVZjC Gi0b1tpxTlwMDKuVKH8m9 kjNLexkrIiXU9vxi6aeAd 0p2hzrpXgBJScMOIsiVXE FIVuJ5WytBatKw3khBc0e YuyEejyGAG4Zhl4BB1nvb 23mhr4hVqfWGGfjbbkXnX 2KUefUYVtsyrrRJx6SCxd ZVKcdBV5QCZlqFNmD9RtX IDiOA4fkup2XUO1CApoYA RwRaZ8DGSndSNwUZZgwFu hFIimk766HNH4CmGvLF2d L4Dyl6U7lK0nhUYlQRRwf UJhOoOjECYcrt1gtQPvVJ pby2UfXBU7sfM5rEGgdTV bXSUiGO15Kynig5MrOjoc j9YcC41jqQA4FEndl1nyO X4jSnZ9tpHwPDecp0udwX 6tHpH1FWssOA9yII3eVOH rnL4qwqeaDAUkAzTmzhpu ZGEtqPyfclHlSv4ugCatA ZL8YRfoK1nuxD1hWuD6DL wcJ8tskS3sIBu7QCvenCC 0ROGntN0eYB9fcctaq8vs LJxsWKskZOBzvmA2ctZ0A WZjfVPvT1ApaZ2wNFFqYH 4nosklv9taOMI5JEjzASC vLEW1FoCkSSIjh2Yujlr6 OiKdu0IraYGlWJpfW72ba 587BWPogmOyW1deaOKrft fcwGFwahozSYzvjoE2NTN kedGoe4AxLWDfDCZ8LJui BPhbkKMkGRHrdNvcb6bxX 3RscGFyXHBsYWluXGYxXG ZzMjBcbGFuZzEwMzNcaGl jaFxmMVxkYmNoXGYxXGxv U6mhGkMbU0JqZCLmLtZwu WAqR7qpBAhrggXrCOEpkv QmoJQ4ZSdlV8g3TJWhayD wxDt5afWlYyVyJUOyTPG0 AOwlzOCxWIJia1Euasfew DSjOr3mqPRsLLEdyL4oTM UpQCSmNBlcBL3qcKt8HOE ZxPMbuKWmJjHHPFGbLC79 kqTjCPALzbrnn6P4KLvfP BHmm7VwvWJfZ9huq2MpUM Kpw41mTD4gy5X8r8lzACM 8WL0nv9JoFSHawXUsuWXv KUMsw6Nqqnitl6LtFEUnr mAdl6HkLCUjglXrcIAhIT BuyeHexw1hpvElHUQoWIS lK1QoyyfaxCtpwwQqRWVy wt5hxrObQHF4GLTREGPqC IFyi9YfmK1epDNOUEK4wC Zzli7dshZHyVKeYXCdlc8 6WEHdVZ5kW6rrMYUzUXRj ieMltTNwy9MiFDScfXT3j SVdUY9CFkCUz11zDGTmWT RXpxNwODKdfRcmzGM1bgA 5cT1iKPvDAXFnFbh+IFRo SCQEOPHwFX3dkiVqt8Iij kLvkAeaYDBlfIFtj4AstW Xkl0CbbJcmh7KejHAhrLS qYO9zWLVezvszEUTaIBVV UgIIYNJqfhK7t2FlOPWgG WAaSMQ7iHwxbyq7EQWgfT 4zWVQpC2jiduluBZpmGIA rq4CllB8hrDIIpTGkb6Cp mITimOWCxEHlJX5mimLlP TgIYYpZWMM9qyBtUQAru5 VzDLaxG9gtK18wqBctmSw 1yIO5OCG2qG3uCvo+IFxw YXJccGFyIEFwcHJvcHJpY XHieYehcsYhN3BemdZqvB 3bgDZlfaMoQZ6xTE0wT1O 9kFKbFOEndnPor9siZVzz dmUgYmVlbiByZXZpZXdlZ QPej7YvITjxVYE3YUpokx BpbmNsdWRpbmcgSCZFLCB VwXXilPOvFJF4LJuzidRo inCbIO1mpN7qhZjfjM6tp XChxSE9dthsDMWvYBPsxG bfJYYnYB0xgHTuUGOogdK YpBkmkKGoiL2sJ6MqRCCh XXYmje3rWGVngZ1aITvzv 2VydmljZXMgYXJlIHBlcm Ypyq9sVBQldROFSG1FXLr duIDsi0MipiZuY4kJGBD8 NUQwNjYwMjgxKSBleGNlc VAhRDHbpg45QHWdhW0lsP pjLZDzjC3zaG5odKlmoO2 nJoGkCdRfRKxkTV8sGDIn Z1btoQYhABGrVOTsB4pcQ iVrrK4ecYgnYQxrJrHjZf JmRDboUZM9sX== Embedded Images (test code = 5815382710) [facility] GLUCOSE (AUTOMATED)2022-01-21 22:49:17* Test Item Value Reference Range Interpretation Comme nts POCT GLU (test code = 2166293769) 186 mg/dL 70-110 H Lab Interpretation (test cod e = 41958-8) Abnormal [facility] GLUCOSE (AUTOMATED)2022-01-21 18:05:56* Test Item Value Reference Range Interpretation Comme nts POCT GLU (test code = 7636187868) 334 mg/dL 70-110 H Lab Interpretation (test cod e = 35849-6) Abnormal [facility] GLUCOSE (AUTOMATED)2022-01-21 16:14:57* Test Item Value Reference Range Interpretation Comme nts POCT GLU (test code = 9285925473) 302 mg/dL 70-110 H Lab Interpretation (test cod e = 52636-2) Abnormal [facility] GLUCOSE (AUTOMATED)2022-01-21 02:00:56* Test Item Value Reference Range Interpretation Comme nts POCT GLU (test code = 1837788629) 185 mg/dL 70-110 H Lab Interpretation (test cod e = 20000-8) Abnormal [facility] GLUCOSE (AUTOMATED)2022-01-20 22:48:32* Test Item Value Reference Range Interpretation Comme nts POCT GLU (test code = 7675643934) 167 mg/dL 70-110 H Lab Interpretation (test cod e = 59982-8) Abnormal [facility] [id number] 21:51:10* Test Item Value Reference Range Interpretation Comme nts BF COLOR (test code = 3966386963) Yellow TURBIDITY (test code = 5136464779) Slightly Turbid BF WBC Count (test code = 2348509065) See_Comment [Automated message] The system which generated this result transmitted reference range: /?L. The reference range was not used to interpret this result as normal/abnormal. BF RBC Count (test code = 8694179422) See_Comment [Automated message] The system which generated this result transmitted reference range: /?L. The reference range was not used to interpret this result as normal/abnormal. LINDA (test code = LINDA) The reference range and other method performance specifications have not been established for this body fluid. ?The test results must be integrated into the clinical context for interpretation. [facility] MANUAL [id number] 21:51:10* Test Item Value Reference Range Interpretation Comme nts BF SEGS% (test code = 66738-0) 30 % BF LYMPHS% (test code = 95809-1) 25 % BF MACROPHAGE% (test code = 26423-6) 44 % BF MESOS% (test code = 56021-4) 1 % BF #CELLS CNTD (test code = 5002166556) cells/u L [facility] TOTAL BODY [id number] 21:18:52* Test Item Value Reference Range Interpretation Comme nts LDH BF (test code = 2185783090) 183 U/L UNSPUN BODY FLUID COLOR (test code = 1605962572) Yellow UNSPUN BODY FLUID CLARITY (test code = 3452021758) Clear SPUN BODY FLUID COLOR (test code = 0359576699) Yellow SPUN BODY FLUID CLARITY (test code = 0240843436) Clear Sediment (test code = 1884781331) The sediment volume is <0.01 mLs of the total fluid volume of 3 mls and its color is white and red. LINDA (test code = LINDA) Test developed and characteristics determined by [facility] Laboratory Services. [facility] Protein Body [id number] 21:18:47* Test Item Value Reference Range Interpretation Comme nts T.PROT BF (test code = 3788171153) 5400.0 mg/dL UNSPUN BODY FLUID COLOR (test code = 0707021912) Yellow UNSPUN BODY FLUID CLARITY (test code = 8802219967) Clear SPUN BODY FLUID COLOR (test code = 8424015850) Yellow SPUN BODY FLUID CLARITY (test code = 8624375135) Clear Sediment (test code = 9211742013) The sediment volume is <0.01 mLs of the total fluid volume of 3 mls and its color is white and red. LINDA (test code = LINDA) Test developed and characteristics determined by [facility] Laboratory Services. [facility] CenterGlucose Body Bedch8018-32-53 21:18:37* Test Item Value Reference Range Interpretation Comme nts GLUCOSE BF (test code = 6656655722) 173 mg/dL UNSPUN BODY FLUID COLOR (test code = 4138231078) Yellow UNSPUN BODY FLUID CLARITY (test code = 5885631498) Clear SPUN BODY FLUID COLOR (test code = 7958287626) Yellow SPUN BODY FLUID CLARITY (test code = 7264435733) Clear Sediment (test code = 3260905489) The sediment volume is <0.01 mLs of the total fluid volume of 3 mls and its color is white and red. LINDA (test code = LINDA) Test developed and characteristics determined by [facility] Laboratory Services. [facility] Center[facility] Body [id number] 21:18:32* Test Item Value Reference Range Interpretation Comme nts AMYLASE BF (test code = 5150934354) 34 U/L UNSPUN BODY FLUID COLOR (test code = 1522496324) Yellow UNSPUN BODY FLUID CLARITY (test code = 6298940344) Clear SPUN BODY FLUID COLOR (test code = 0167397152) Yellow SPUN BODY FLUID CLARITY (test code = 5613236115) Clear Sediment (test code = 3376142977) The sediment volume is <0.01 mLs of the total fluid volume of 3 mls and its color is white and red. LINDA (test code = LINDA) Test developed and characteristics determined by [facility] Laboratory Services. [facility] CenterGlucose, [id number] 21:00:20* Test Item Value Reference Range Interpretation Comme nts GLUCOSE (test code = 2135515163) 140 mg/dL 70-110 H Lab Interpretation (test cod e = 70270-9) Abnormal [facility] CenterProtein Total Smboz2627-03-02 21:00:20* Test Item Value Reference Range Interpretation Comme nts T PROTEIN (test code = 2351100248) 7.7 g/dL 6.3-8.2 Lab Interpretation (test cod e = 61423-2) Normal [facility] CenterLARIATE [id number] 20:57:37* Test Item Value Reference Range Interpretation Comme nts LDH (test code = 8280750068) 153 U/L 120-246 Lab Interpretation (test cod e = 05473-5) Normal [facility] GLUCOSE (AUTOMATED)2022-01-20 17:59:40* Test Item Value Reference Range Interpretation Comme nts POCT GLU (test code = 9725341211) 245 mg/dL 70-110 H Lab Interpretation (test cod e = 72038-0) Abnormal [facility] CenterLIPID PANEL (00477)(TOTAL CHOLESTEROL, TRIGLYCERIDES, HDL)2022-01-20 15:55:13* Test Item Value Reference Range Interpretation Comme nts CHOL (test code = 6905523296) 130 mg/dL 120-200 HDL (test code = 0473549814) 33 mg/dL See_Comment L [Automated [employer]] The system which generated this result transmitted reference range: >=50. The reference range was not used to interpret this result as normal/abnormal. HDLC RATIO (test code = 9787633291) See_Comment [Automated [employer]] The system which generated this result transmitted reference range: <=4.5. The reference range was not used to interpret this result as normal/abnormal. TRIG (test code = 2391083845) 126 mg/dL 30-170 LDL CHOL (test code = 96507-3) 72 mg/dL See_Comment [Automated [employer] ge] The system which generated this result transmitted reference range: <=160. The reference range was not used to interpret this result as normal/abnormal. VLDL (test code = 4962329741) 25 mg/dL 5-60 Lab Interpretation (test code = 97435-2) Abnormal [facility] GLUCOSE (AUTOMATED)2022-01-20 15:18:39* Test Item Value Reference Range Interpretation Comme nts POCT GLU (test code = 1395295078) 158 mg/dL 70-110 H Lab Interpretation (test cod e = 27345-2) Abnormal [facility] GLUCOSE (AUTOMATED)2022-01-20 04:45:29* Test Item Value Reference Range Interpretation Comme nts POCT GLU (test code = 2144765883) 160 mg/dL 70-110 H Lab Interpretation (test cod e = 43346-3) Abnormal [facility] GLUCOSE (AUTOMATED)2022-01-20 02:02:31* Test Item Value Reference Range Interpretation Comme nts POCT GLU (test code = 1900662172) 162 mg/dL 70-110 H Lab Interpretation (test cod e = 33255-1) Abnormal [facility] GLUCOSE (AUTOMATED)2022-01-19 18:54:23* Test Item Value Reference Range Interpretation Comme nts POCT GLU (test code = 9024192619) 277 mg/dL 70-110 H Lab Interpretation (test cod e = 57761-4) Abnormal [facility] GLUCOSE (AUTOMATED)2022-01-19 15:16:34* Test Item Value Reference Range Interpretation Comme nts POCT GLU (test code = 0293683322) 231 mg/dL 70-110 H Lab Interpretation (test cod e = 74064-5) Abnormal [facility] GLUCOSE (AUTOMATED)2022-01-19 03:30:01* Test Item Value Reference Range Interpretation Comme nts POCT GLU (test code = 2203678113) 156 mg/dL 70-110 H Lab Interpretation (test cod e = 61457-9) Abnormal [facility] GLUCOSE (AUTOMATED)2022-01-18 23:41:52* Test Item Value Reference Range Interpretation Comme nts POCT GLU (test code = 0264353117) 108 mg/dL 70-110 Lab Interpretation (test cod e = 09276-3) Normal [facility] GLUCOSE (AUTOMATED)2022-01-18 18:21:22* Test Item Value Reference Range Interpretation Comme nts POCT GLU (test code = 2830938161) 267 mg/dL 70-110 H Lab Interpretation (test cod e = 35110-5) Abnormal [facility] CenterCyto Pleural [id number] 16:30:18* Test Item Value Reference Range Interpretation Comme nts Case Report (test code = 6818631544) Non-Gynecologic Cytology ?Case: [id number] ?Authorizing Provider: ?Gumaro Huynh MD Collected: ? 01/12/2022 0953 ?Ordering Location: ? ? [facility] Received: ?01/13/2022 0941 ? (ERIN 11D) ?Specimen: ? ?PLEURAL, LEFT, EFFUSION ? Final Diagnosis (test code = 7338661302) x1hexTWkXABvc9ugRUAkgH FuZzEwMzNcZnRuYmpcdWMx IHtccnRmMVxlcGljMTAxMD MvIY7yzDpvyGc2lKtiSCTz zaB7qYRfWNwtt3foTWF0l4 rugcugLJLlTZdiIi3jfVDy rKyiBvSqAVOxAGv3lS13KB PziR2ahMGwTJt3GREatRNs kmJwHuIcYGQhuDIkuGC2ZL YuYV4zncgxWOkpDUfyTSWm qdP6YJElmGPfE9QdPJBvCL 4kcdaeCPP4SUkaSFDbOHV6 OwNcQFKfd2Dvynh9JuSbsU FyZFxwbGFpblxmczIwXHBh clxiIEEuIFBMRVVSQSwgTE WCUZryQPuTDaJMEJ9NGZKL UyBGTFVJRDpccGFyICAgIC KeQEWIFqGOJV9DDGJRM67r FS9ODIEXUYLqvjXvTDPoWZ 6uHsTVWVHTXsNpWh9FEO8B TElHTkFOVCBDRUxMUyAoU0 ZSQYNZEG4SCoIbITEgnhcj TJM0x0oujTCmHBZkzUUrTz YoGKCzKTWcv5hlRNXdlIMn ZzEwMzNcZnRuYmpcdWMxXG AwCnHcq9xdg656rXLkz4ad JSSeLpR2qXVjOGSidWzguv j5wPxmNnNoUFZsr1ndrvHe ZmNoYXJzZXQwIEFyaWFsO3 71SIExZZoks5zkx1VtDIUd wITgw8G6RTUIJXtlLgUdY0 03d4fvy3mcgyWdoAY0DAVl GHE5DOdtmiKujwJ2LAtvdK EfMgP4QItfxeVzHIydmnDk rbVgVsd0BYIqA390SRC4dU qcg4ieJRX3VRFuROYlXoex Pd1asCPkK401PCDyAEHVBZ OswTq3CBQnvuJvmpKrrDSF p519M466g0kyATQttnBdrT gHiblxa4vpR568VOWvcMSk wwIyDxWfFKTfqZNtpQZ4XG KrSX3dinjeZJsvKInwKPCa lwM8VQOyhEYaB0CtXUTcWM 7zkdsyZIX2SFmuYDDsGMA2 DhHjIMFqi9Vvnrv8ZnVuzl 1ikn58HMQ4u2JmrRzsBKP9 CXO7DoSaFu0wwQGjWWHhTN 5oYtBgdSLtPBKdiy01cOos UGvskzXlgG3jLzLuTUEsrG KwKCShZF0zoQKdUNRclS3c cmxjXHBnYnJkcmhlYWRccG gjkzZyVy9isQwnBLF0XKvb B4wvvQ8vNpO9FDtjJ5xzxS 9uLId9PTodhEA4LBHicO9r OK3ngyeje3mjEOgrRBjaZR TyzqG8jgX4RTXvdTTyS9Zp cY0gTIGyKG4pttjmc1pbCR J9BWvwBZUgJNE5ByYuRCKc j7Romsh2ViPrw5StiEFhXM igI00nx218XBMmnoYbS2bk bGFpblxwbGFpblxmMFxmcz T8IWUcWNNfWIpuMJBeFEGu MjBcbGFuZzEwMzNcaGljaF swABazDrVpQOBzQPfkS9nu RwVcL5PuLQMbCqNoyXShLH qpnJK1XHAbPMMch19gkLo1 CYEztztfl3OpOLLveOZuuQ NvvP8nrkEou1jmXWKoFNBi JHUmE4KmIFP0sTAcTUSemW IagDY6KO4ohlWmUS3iBAOx YnkgcmVzaWRlbnRzLCBmZW ksa0kdLT5sIWYswObndO5h pTO8MONjt3qppRKziVFbk7 xzt7FdfmYxKPnnICNoBJzg ZWHbWMTvCA8dXHXzsXYqlh Iug1W0KbzcvERsmmsgKjwu lfN2YNtnofkwNSCuFMhdA0 aoEvLjMZEmjWihHckch9Ds XGYyXGZzMjhccGFyfX0= Final Diagnosis Comment (test code = 7407050701) e6qjaHLwEUWrgXRhMAHgJE peyuYsLSXzxKIfQ9Sqaoei PYnxTH0zSS4piEsplAYszZ GtKQRbIzAyw6qna565mSWb r5quOGFEdkydfLv0lLqcX6 6me7R5ZyxeZ64btAQwVRA8 VKRjUJAsuESgXXBgNXM6OH PfwWNaS6awPTInGG9uuabw YJniBRlkYDBaiEV0QPDkhF DeE3CnDBRhZZgqDRWgwbh8 KxHjKx7iyOTaiAtoKTroAA JkXHBsYWluXGZzMjAgVGhl THAhRFQrcwNcolReR5YggQ Pye3KaYLCoe4mriJt1OZFq mI1avPPliUQ5gN3jNTwdF7 n6IIpfKaTxmS6icM4rvUMd cyBhbmQgbnVtZXJvdXMgbm A7yVKqxXvniNNmp4b7pYUv BAKioMu4VXSnIXMcnFmcgV lhbCBjZWxscyBhbmQgaGlz cPmuI6l8TYDjIJ7iQ2K1mR HzBOLluuWpQKofO04rpbNg I6LzdPVfPHGsuxzlEMLlNB qsDGWlmUigh3fiAqAeaB27 is8trIDzldSuf7GvNLIiRZ Ckn5BsQXDpo63dpXboZZCq bCrrNrffL5jnHKKwa2UjXF MgWHL5lTRaEWWsGVVmw8jk h3nwushdztZnxBp0wpxhbY CwLNBeTJKAYEZUQTY2RLAu XzFTHBzaoQc2SAmzPZIiED OcDYXgVYJnvG89CxJytHEx AE2pK0Y8bBAzULXgkjLoQZ 6jS3EwsdU7oU1suzydtMXp YPulW0rroDkyeMVxaLBcl0 NgMQspOKigO7YubRXvISWq clxwYXJkXHBhciBUaGVzZS RuXEL2oWOtQDK0xOXjvsEz kIucWWSrr5XcTPGePGafn5 Bsbq8moZSqZNIcsv7= Clinical Information (test code = 9281883300) Clinical Hx: 76 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 Gross Description (test code = 2592400360) o4rodCWyPEGnsEIcHPRwMO nusgIxYTDioDBaL4Mcqmji ZIpsJF2uCO6mjVllhBJnuS TvNJFpOkCad1ngt743xWDw d9wbOOFNimiwvVc2xUrxR0 8wx1Q3FpcsN4ixLQMmDKye RHSqPDvjrMQqBBz6HNSyaU VydzEyMjQwXHBhcGVyaDE1 OCKaFC9pbhueHTqdZQjiBW HroyQ0PQOavUIzP1HjSQBm CX7gohakVXY6HYlnNRIuMU G2JdEfMNClx8Jpqwc3ZgD5 IHimACPlR8OiO8AtPIsyWP L6MOKjCWQzIQ6vIGcyyHRr KPjtTanoGZjoJ703QDsfAY YsF2ApH4IgTMxeVPB7CNNg RtTdAHFbMI8LNdPkLJEnVd R0QfgeGKo3SZh5HD1HAjDz WTXtOEC9GxJ0IlSzVHb1VL wfYG8QJVJ1TcEeNhE9QQFn JSSdCNbyIXm0EJMiCQplcO BcXGYgQXJpYWwgXFxmcyAx ONHiEO5isWwxRIPzEKIkGH luXGZzMjBccGFyXGZzMjJc cGFyIEExLiAgUExFVVJBLC AHTUZFFrQKKC0DRSGUWnBZ T1lLEZHARQmABDKqmaXMPC NlaXZlZCBmcmVzaCBpcyA2 ZQRhK2DixgXaCpN3ARtez0 pgUpn2dWBfYNppVENyDQEj cGFyZWQgMyBzbGlkZXMgKD AbMBTeCW5kJ29qCE27DDC5 jX8wdYucRCToDNTdnAEzh9 hhq4qrH5h0i4GbaV2gPC5j IDEgVGhpbnByZXAgcHJlcG HtWSJda70rVRWbvkctEDBp ZnMyMFxjZjEgQTIuICBcZn MyMlxjZjAgUExFVVJBLCBM YZRNSvAGZG4NIHEMToBXO8 yNAOAMXItKDUKjJcWgJ7Ej ZXmmI4GAOBQUYV9FL1grDE WoGjYzbUF3YDavQxy9iPDv i7ZzxU5zjvDxeFpqJ6OyNZ tgPPSowu4pqMgaGC4lUEPv LzEwLzIwMjIgMTYwMCBob3 OqxcleXR5cQZTfFIWaiB8e TUueuA8kGXctyWp0MHWyUX n3QNzuWP2bVEK5Db9byYIw CKJms4VnC4VpyOFjdO2cg5 xwYXIgUHJlcGFyZWQgNSBz bGlkZXMgKDIgSCZFIGFuZC SaUFprqGTrj5A9STxrILZp IChDYWxyZXRpbmluLCBDbG U4VWefULvjSdZlOTD1XAkg nFRrLNFwkaFHa9FmzWI4CR vvu9tjMZUoDNDosugojnXg HPXbYNhdNTK6CAYxnZWkAV P2PG0dkVdrSKKiM8KlM4Bv fmH3GKVosf3= Disclaimer (test code = 0004766533) l1xxpATlENYhp7huGAQkcI FuZzEwMzNcZnRuYmpcdWMx HCopwdTwELrxj8ZzI4NfYe AwMFxhbnNpXGRlZmxhbmcx ZRXvMJT1kuGgREHuMUiwAE XyQHskDs1xzLZwqAetTtZf SMQug9siqiWURGsqImSqN3 27LHGrPWmga5mkn5YrKJTk iRNbw6M2GXJLqdbtjBo2bP jgY56mg8D6RiakI7gtOCAz GICdK6CrUM9mIBXiToh0IF H0AVD2LJGgXJIlH9OrCC0q VBPjhFLoMXk5g7ssyGmqTF MgAKT4t0nyJKfkzdYqJC5g wz2vzUg1b6gyngYgKCTqSI DvySZNGEZyG9MlcUhlGj3w lFb6vGdgDjgsMLR4Jsx5NU 0pih67wbv7cEriGYZkllmp ElY8MDpqYIBhrwrqPAk5GD hpKFGsfES6MGAisMOkO7Dq OWRpAF4fcra3MFL6JPylZG MlPrW4XOBctYUtKNKerGis HErhm112PCH3MvAyYO9hT2 Jdo1I7kY8jpHTsLHPfoQXa RpCvUPFmya4xsICkOHepk1 XoXFM9dtQ3aOBtvKBnXPKz XF61Bjmqs6EjPdcix5IgS9 4fgLM5ENdyp3lnAM7dCdX2 cvWtPHdaj0ofpT6jKmZ5TJ kzHW2lEE9tKZIedG1gbnyi XHBnYnJkcmhlYWRccGdicm CsPz8ypUxhEEP4DUdkC4rg iX2nBqE7FUvsJ4eaeC6zEZ f2JJcufYA9ZRTahD5qHO2d lqemv1ltTHmuMKfiKKEqrp U8lzB6JBHjjLDlM5FeyG7s FSCaXI0rtmjud4ghKBX7TJ whIENwFYP4IiIwOAFme5Bq jrl4ZmRzk1QegPEhXAatZ8 6bm329MWGrwjVfO9xnoVUo yiqyyDTihbtbHTdybvQ4PY MrjuPoz8AzMXHkJHZ4RIej PWmyyWUmTQYiwRnma3llR2 RscGFyXHBsYWluXGYxXGZz MjBcbGFuZzEwMzNcaGljaF qiTYgwBpOdDTPeNKzbI6zb PzIxK4HeBYXfAoOseXHtW5 ggVGhpcyByZXBvcnQgbWF5 BXmhF9g6GDBsriVdvMw0wv GuHaInOIBfFPG8PAuvrAJx JGJaj8YwhceehPKhTo7vkR OhYXHkjY3lDHOzKTMgPFkf VB9atGt2TTUShSKwbNJvTo EQHFAkSZ66unZzYGVJpfft d2P5TQipRTIbk8NptLUpJ3 bxz9SrOYLqr70fTU5kr2B4 w4xiVVX3LY3yw2MmVGAxiS DqlIHxYJOos2Cgowgfx4Aj UMNiisCgg4FsTVWevmLsqQ TsROXckkPnfq6ybvPhBZOd NQKoK4XafbprpXsmjcVfII Joxy0fdzHgTJG0CYPSQNDe LYJwv6AbvR6uhXNYXRQ6hY Gluy2bfjXXnOUhVOLybh93 EWYhKD1kP0qbRNAeHPBpmt TiiBXps8WjQFLonTN8oBLt AO8LEbQHd77qZHNnRICRvr CvTJGcfQslgJJ3brI6cW3r IChGREEpLlx+IFRoZSBGRE WlSR0yvdPtn1NrsmXivPsi GRZdrNIhe9OajPOpf2TriE fqd0IyvFGuzQUgQY1fKGHj clxwYXIgVVRNQiBMYWJvcm D1p9SjLRUoZWQrQKC9zKyi hjf9EOAdvT2hGKMiV5jbpu dpXPeyZYYwy1DsmZ3mkNZF xKZew1GrlHRgvQXAfZRjOM 3xchLrJAoHAYtFJEE8wrPl WGUyz7JhYSfmA4soN30cdG qnhCl6xLQ9YIU9kD3nBdp+ IFxwYXJccGFyIEFwcHJvcH MuBKPtyMrearWsK4DlhlNa vY9mgVJckvRwOR3pUI6xA2 U5fBBhDWXiftCaq1kmTLqu dmUgYmVlbiByZXZpZXdlZC Elk5YgUFjtNFO9CNdwzmIh bmNsdWRpbmcgSCZFLCBTcG EfqXPwCTK9IAvkxgAeiuRx UV5jwP8ljIwyhT6gcRLvhN P1hblyMIEeRUDebJcdYTNw IW6peRWmACMfltITmFiitJ FfhR1eS4RdQXQhDUVxql7o UOYcsM7iVPbei9AqwbmqAQ AzETRnLMLphhThrb9hICMo rGHTBA5CCTvfbACoc6Zjah NwN7uPIGT2QWQrMgBcKbqe WUAcyBApyNZiIMBcgf25YS KdlA0mbMxrFDSduG4roC6s eWbbeT7hWoXkMqEcHSqpED 5kJILsI4tgyRKmEYCzHXJx X7agMcGxmI1nvLucNYozOh GuJjDoQKqdNLF0bZ== Embedded Images (test code = 6527771738) [facility] GLUCOSE (AUTOMATED)2022-01-18 14:14:04* Test Item Value Reference Range Interpretation Comme nts POCT GLU (test code = 9592201432) 194 mg/dL 70-110 H Lab Interpretation (test cod e = 75037-9) Abnormal [facility] GLUCOSE (AUTOMATED)2022-01-18 05:48:51* Test Item Value Reference Range Interpretation Comme nts POCT GLU (test code = 1421378868) 148 mg/dL 70-110 H Lab Interpretation (test cod e = 12331-2) Abnormal [facility] GLUCOSE (AUTOMATED)2022-01-17 22:58:26* Test Item Value Reference Range Interpretation Comme nts POCT GLU (test code = 4050483705) 218 mg/dL 70-110 H Lab Interpretation (test cod e = 89815-6) Abnormal [facility] GLUCOSE (AUTOMATED)2022-01-17 18:52:49* Test Item Value Reference Range Interpretation Comme nts POCT GLU (test code = 1473335400) 339 mg/dL 70-110 H Lab Interpretation (test cod e = 19049-8) Abnormal [facility] GLUCOSE (AUTOMATED)2022-01-17 15:02:05* Test Item Value Reference Range Interpretation Comme nts POCT GLU (test code = 0099343632) 236 mg/dL 70-110 H Lab Interpretation (test cod e = 94752-3) Abnormal [facility] GLUCOSE (AUTOMATED)2022-01-17 04:15:53* Test Item Value Reference Range Interpretation Comme nts POCT GLU (test code = 4417669692) 166 mg/dL 70-110 H Lab Interpretation (test cod e = 13657-4) Abnormal [facility] GLUCOSE (AUTOMATED)2022-01-16 22:22:05* Test Item Value Reference Range Interpretation Comme nts POCT GLU (test code = 1931472171) 165 mg/dL 70-110 H Lab Interpretation (test cod e = 18612-5) Abnormal [facility] GLUCOSE (AUTOMATED)2022-01-16 17:47:41* Test Item Value Reference Range Interpretation Comme nts POCT GLU (test code = 9665818763) 266 mg/dL 70-110 H Lab Interpretation (test cod e = 76112-4) Abnormal [facility] CULTURE [id number] 16:01:50* Test Item Value Reference Range Interpretation Comme nts Blood Culture-Anaerobic (test code = 47940-0) No organisms isolated No growth Previous preliminary verified result was Culture In Progress on 01/11/2022 at 1301 CSTPrevious preliminary verified result was No growth at 24 hours on 01/12/2022 at 1001 CSTPrevious preliminary verified result was No growth at 48 hours on 01/13/2022 at 1001 CSTPrevious preliminary verified result was No growth at 72 hours on 01/14/2022 at 1001 MOP MAKER Lab Interpretation (test code = 40529-4) Normal [facility] CULTURE [id number] 15:01:48* Test Item Value Reference Range Interpretation Comme nts Blood Culture-Aerobic (test code = 50039-2) No organisms isolated No growth Previous preliminary verified result was Culture In Progress on 01/11/2022 at 1201 CSTPrevious preliminary verified result was No growth at 24 hours on 01/12/2022 at 0901 CSTPrevious preliminary verified result was No growth at 48 hours on 01/13/2022 at 0901 CSTPrevious preliminary verified result was No growth at 72 hours on 01/14/2022 at 0901 MOP MAKER Blood Culture-Anaerobic (test code = 81733-1) No organisms isolated No growth Previous preliminary verified result was Culture In Progress on 01/11/2022 at 1201 CSTPrevious preliminary verified result was No growth at 24 hours on 01/12/2022 at 0901 CSTPrevious preliminary verified result was No growth at 48 hours on 01/13/2022 at 0901 CSTPrevious preliminary verified result was No growth at 72 hours on 01/14/2022 at 0901 MOP MAKER Lab Interpretation (test code = 42320-5) Normal [facility] GLUCOSE (AUTOMATED)2022-01-16 14:04:55* Test Item Value Reference Range Interpretation Comme nts POCT GLU (test code = 8508485925) 154 mg/dL 70-110 H Lab Interpretation (test cod e = 23451-8) Abnormal [facility] GLUCOSE (AUTOMATED)2022-01-16 10:57:10* Test Item Value Reference Range Interpretation Comme nts POCT GLU (test code = 9393633610) 193 mg/dL 70-110 H Lab Interpretation (test cod e = 92749-1) Abnormal [facility] GLUCOSE (AUTOMATED)2022-01-16 07:18:32* Test Item Value Reference Range Interpretation Comme nts POCT GLU (test code = 6364965394) 211 mg/dL 70-110 H Lab Interpretation (test cod e = 35628-1) Abnormal [facility] GLUCOSE (AUTOMATED)2022-01-16 04:32:29* Test Item Value Reference Range Interpretation Comme nts POCT GLU (test code = 5471547623) 243 mg/dL 70-110 H Lab Interpretation (test cod e = 32409-3) Abnormal [facility] GLUCOSE (AUTOMATED)2022-01-15 23:22:29* Test Item Value Reference Range Interpretation Comme nts POCT GLU (test code = 6321096407) 414 mg/dL 70-110 H Lab Interpretation (test cod e = 38558-0) Abnormal [facility] GLUCOSE (AUTOMATED)2022-01-15 23:17:18* Test Item Value Reference Range Interpretation Comme nts POCT GLU (test code = 2258175312) 405 mg/dL 70-110 H Lab Interpretation (test cod e = 40908-8) Abnormal [facility] GLUCOSE (AUTOMATED)2022-01-15 18:14:33* Test Item Value Reference Range Interpretation Comme nts POCT GLU (test code = 8371315413) 270 mg/dL 70-110 H Lab Interpretation (test cod e = 83084-2) Abnormal [facility] GLUCOSE (AUTOMATED)2022-01-15 16:04:19* Test Item Value Reference Range Interpretation Comme nts POCT GLU (test code = 5511734936) 236 mg/dL 70-110 H Lab Interpretation (test cod e = 21617-2) Abnormal [facility] GLUCOSE (AUTOMATED)2022-01-15 14:12:31* Test Item Value Reference Range Interpretation Comme nts POCT GLU (test code = 0218611051) 214 mg/dL 70-110 H Lab Interpretation (test cod e = 07699-8) Abnormal [facility] GLUCOSE (AUTOMATED)2022-01-15 10:13:59* Test Item Value Reference Range Interpretation Comme nts POCT GLU (test code = 0381339534) 250 mg/dL 70-110 H Lab Interpretation (test cod e = 94648-5) Abnormal [facility] GLUCOSE (AUTOMATED)2022-01-15 06:24:45* Test Item Value Reference Range Interpretation Comme nts POCT GLU (test code = 0612766612) 259 mg/dL 70-110 H Lab Interpretation (test cod e = 32223-9) Abnormal [facility] GLUCOSE (AUTOMATED)2022-01-15 02:11:36* Test Item Value Reference Range Interpretation Comme nts POCT GLU (test code = 9933835312) 294 mg/dL 70-110 H Lab Interpretation (test cod e = 08487-9) Abnormal [facility] GLUCOSE (AUTOMATED)2022-01-14 23:05:34* Test Item Value Reference Range Interpretation Comme nts POCT GLU (test code = 2558118471) 251 mg/dL 70-110 H Lab Interpretation (test cod e = 80331-7) [facility]:08* Test Item Value Reference Range Interpretation Comme nts POCT GLU (test code = 4425122759) 218 mg/dL 70-110 H Lab Interpretation (test cod e = 16472-9) [facility] 17:48:51* Test Item Value Reference Range Interpretation Comme nts POCT GLU (test code = 0956750870) 329 mg/dL 70-110 H Lab Interpretation (test cod e = 12179-1) Abnormal [facility] GLUCOSE (AUTOMATED)2022-01-14 14:18:46* Test Item Value Reference Range Interpretation Comme nts POCT GLU (test code = 2274690878) 285 mg/dL 70-110 H Lab Interpretation (test cod e = 51782-0) Abnormal [facility] GLUCOSE (AUTOMATED)2022-01-14 11:57:49* Test Item Value Reference Range Interpretation Comme nts POCT GLU (test code = 7270859120) 317 mg/dL 70-110 H Lab Interpretation (test cod e = 10862-3) Abnormal [facility] GLUCOSE (AUTOMATED)2022-01-14 10:52:40* Test Item Value Reference Range Interpretation Comme nts POCT GLU (test code = 5626912905) 344 mg/dL 70-110 H Lab Interpretation (test cod e = 25177-3) Abnormal [facility] GLUCOSE (AUTOMATED)2022-01-14 06:31:53* Test Item Value Reference Range Interpretation Comme nts POCT GLU (test code = 4689000264) 297 mg/dL 70-110 H Lab Interpretation (test cod e = 64977-3) Abnormal [facility] GLUCOSE (AUTOMATED)2022-01-14 03:08:13* Test Item Value Reference Range Interpretation Comme nts POCT GLU (test code = 6261162464) 404 mg/dL 70-110 H Lab Interpretation (test cod e = 72389-1) Abnormal [facility] GLUCOSE (AUTOMATED)2022-01-13 23:15:36* Test Item Value Reference Range Interpretation Comme nts POCT GLU (test code = 7407499678) 358 mg/dL 70-110 H Lab Interpretation (test cod e = 97044-0) Abnormal [facility] GLUCOSE (AUTOMATED)2022-01-13 21:35:24* Test Item Value Reference Range Interpretation Comme nts POCT GLU (test code = 3823058578) 366 mg/dL 70-110 H Lab Interpretation (test cod e = 34734-1) Abnormal [facility] GLUCOSE (AUTOMATED)2022-01-13 19:38:51* Test Item Value Reference Range Interpretation Comme nts POCT GLU (test code = 1560308293) 484 mg/dL 70-110 HH Lab Interpretation (test cod e = 36618-8) Abnormal [facility] GLUCOSE (AUTOMATED)2022-01-13 18:06:05* Test Item Value Reference Range Interpretation Comme nts POCT GLU (test code = 1319560065) 467 mg/dL 70-110 HH Lab Interpretation (test cod e = 82800-7) Abnormal [facility] GLUCOSE (AUTOMATED)2022-01-13 15:40:25* Test Item Value Reference Range Interpretation Comme nts POCT GLU (test code = 7842669110) 323 mg/dL 70-110 H Lab Interpretation (test cod e = 23420-9) Abnormal [facility] GLUCOSE (AUTOMATED)2022-01-13 04:00:12* Test Item Value Reference Range Interpretation Comme nts POCT GLU (test code = 8258137418) 256 mg/dL 70-110 H Lab Interpretation (test cod e = 47785-4) [facility] 21:31:59* Test Item Value Reference Range Interpretation Comme nts Height (test code = 1187478765) in Weight (test code = 2634306107) lbs Systolic BP (test code = 0514827104) mmHg Diastolic BP (test code = 5132689048) mmHg Heart Rate (test code = 0705990639) bpm BSA (test code = 8171444923) 1.83 m2 TASV (test code = 2920175558) 8.4 cm/s LVIDD (test code = 8697083373) 4.80 cm Left Ventricular End Diastolic Volume by Teichholz Method (test code = 5412706) 110.1 mL IVS (test code = 4306486477) 0.96 cm Interventricular Septum Diastolic Thickness by 2D (test code = 6935747) 0.96 cm LVPWD (test code = 1356749262) 0.96 cm PW (test code = 5879151983) 0.96 cm 0.6-1.1 EF(Teich) (test code = 3628487558) 73.90 % LVIDS (test code = 3140285976) 2.80 cm Left Ventricular End Systolic Volume by Teichholz Method (test code = 6237006) 28.7 mL FS (test code = 0140702406) 43 % EF - 2D (test code = 87143461) 73.90 % LVOT diameter (test code = 8231329739) 1.87 cm LVOT area (test code = 6816111314) 2.70 cm2 Ao root diam (test code = 2448764038) 2.60 cm Aortic root (test code = 7273893625) 2.6 cm Ao root annulus (test code = 7319451076) 2.6 cm LA size (test code = 2574131907) 3.9 cm LAV(MOD-sp4) (test code = 5404891492) 45.10 mL MV Peak A Carri (test code = 1474855288) 101.4 cm/s E wave decelartion time (test code = 4417676152) 0.17 s MV Peak E Carri (test code = 3546911933) 120.9 cm/s E/A ratio (test code = 7778903972) ratio LVOT stroke volume (test code = 2189052026) 58.50 cm3 LVOT peak carri (test code = 8540790388) 96.9 cm/s LVOT mn grad (test code = 8396602083) mmHg AV LVOT peak gradient (test code = 3289884631) mmHg LVOT peak VTI (test code = 2666327687) 21.4 cm LV V1 mean (test code = 6571853198) 60.40 cm/s Aortic valve mean velocity (test code = 3411824884) 90.5 cm/s Ao peak carri (test code = 6725546552) 148.0 cm/s Ao VTI (test code = 5090048590) 23.7 cm AV area by cont VTI (test code = 6200503073) 2.5 cm2 AV area peak carri (test code = 8173512818) 1.8 cm2 Ao max PG (test code = 7202199921) 8.80 mm[Hg] AV peak gradient (test code = 2370384311) mmHg AV valve area (test code = 9075045612) 2.47 cm2 AV mean gradient (test code = 9380810139) mmHg Tapse (test code = 9346670415) 1.93 cm LA Volume Index (BP) (test code = 0608263527) 28.5 mL/m2 LA volume (BP) (test code = 6928986578) 52.1 mL LAV(MOD-sp2) (test code = 3946952611) 60.20 mL A4C EF (test code = 6126380568) 54.80 % EF(sp4-el) (test code = 4470431709) 57.90 % SV(MOD-sp4) (test code = 0555216368) 35.60 mL SV(sp4-el) (test code = 8669148775) 39.30 mL LV Diastolic Volume (BP) (test code = 7079138739) 90.7 mL A2C EF (test code = 0149619391) 68.30 % EF(MOD-bp) (test code = 4358542437) 64.00 % EF(sp2-el) (test code = 0685671578) 68.70 % LV Systolic Volume (BP) (test code = 6949911782) 32.7 mL SV(MOD-bp) (test code = 0702224490) 58.10 mL SV(MOD-sp2) (test code = 4935886356) 76.40 mL EF (test code = 0561180819) Left Ventricular Stroke Volume by 2-D Biplane-MOD (test code = 2546371) 58.1 mL LV Diastolic Volume Index (BP) (test code = 5751815338) 49.6 mL/m2 LV Systolic Volume Index (BP) (test code = 6770323185) 17.9 mL/m2 Radiology Study observation (narrative) (test code = 44136-9) LINDA (test code = LINDA) ?Left?Ventricle: Left [...] mL of Lumason ultrasound enhancing agent used. [facility] 19:05:43* Test Item Value Reference Range Interpretation Comme [facility] POCT GLU (test code = 3909080180) 123 mg/dL 70-110 H Lab Interpretation (test cod e = 42955-7) [facility]normal [facility] [id number] 18:07:37* Test Item Value Reference Range Interpretation Comme nts BF SEGS% (test code = 34834-9) 45 % BF LYMPHS% (test code = 34836-0) 28 % BF MACROPHAGE% (test code = 61912-6) 26 % BF MESOS% (test code = 05355-2) 1 % BF #CELLS CNTD (test code = 6018921757) cells/uL LINDA (test code = LINDA) Leukophages observed Atypical cells seen. Correlate with Cytology results if available. If not, recommend ordering Cytology testing. Favor reactive. Reviewed by Khang Bruno M.D., Director of HEMATOPATHOLOGY. [facility] CenterLD TOTAL BODY [id number] 17:21:47* Test Item Value Reference Range Interpretation Comme nts LDH BF (test code = 6800482448) 193 U/L UNSPUN BODY FLUID COLOR (test code = 9854868857) Yellow UNSPUN BODY FLUID CLARITY (test code = 8375359820) Turbid SPUN BODY FLUID COLOR (test code = 5152140622) Yellow SPUN BODY FLUID CLARITY (test code = 4278395812) Clear Sediment (test code = 9695075584) The sediment volume is <0.01 mLs of the total fluid volume of 4 mLs and its color is red. LINDA (test code = LINDA) Test developed and characteristics determined by [facility] Laboratory Services. [facility] Center[facility] Protein Body [id number] 17:21:42* Test Item Value Reference Range Interpretation Comme nts T.PROT BF (test code = 2051005635) 4700.0 mg/dL UNSPUN BODY FLUID COLOR (test code = 9011825943) Yellow UNSPUN BODY FLUID CLARITY (test code = 6632291976) Turbid SPUN BODY FLUID COLOR (test code = 4039217104) Yellow SPUN BODY FLUID CLARITY (test code = 8048130937) Clear Sediment (test code = 0160152727) The sediment volume is <0.01 mLs of the total fluid volume of 4 mLs and its color is red. LINDA (test code = LINDA) Test developed and characteristics determined by [facility] Laboratory Services. [facility] CenterGlucose Body [id number] 17:21:41* Test Item Value Reference Range Interpretation Comme nts GLUCOSE BF (test code = 4471740395) 106 mg/dL UNSPUN BODY FLUID COLOR (test code = 4913561700) Yellow UNSPUN BODY FLUID CLARITY (test code = 8709472892) Turbid SPUN BODY FLUID COLOR (test code = 7027362721) Yellow SPUN BODY FLUID CLARITY (test code = 7933829872) Clear Sediment (test code = 6829191903) The sediment volume is <0.01 mLs of the total fluid volume of 4 mLs and its color is red. LINDA (test code = LINDA) Test developed and characteristics determined by [facility] Laboratory Services. [facility] CenterBODY FLUID DIRECT [id number] 16:10:23* Test Item Value Reference Range Interpretation Comme nts BF COLOR (test code = 8942602790) Light Yellow BF WBC Count (test code = 5438609701) See_Comment [Automated Nellixa ge] The system which generated this result transmitted reference range: /?L. The reference range was not used to interpret this result as normal/abnormal. BF RBC Count (test code = 4036154892) See_Comment [Automated messa ge] The system which generated this result transmitted reference range: /?L. The reference range was not used to interpret this result as normal/abnormal. LINDA (test code = LINDA) The reference range and other method performance specifications have not been established for this body fluid. ?The test results must be integrated into the clinical context for interpretation. [facility] CenterMAGNESIUM2022-11-09 08:32:10* Test Item Value Reference Range Interpretation Comme nts MAGNESIUM (test code = 6504621310) 2.5 mg/dL 1.7-2.4 H Lab Interpretation (test cod e = 65972-1) Abnormal [facility] CenterGlycosylated Hemoglobin (A1C)2022-01-12 06:59:39* Test Item Value Reference Range Interpretation Comme nts HGB A1C (test code = 4548-4) 7.6 % 4.0-5.7 H LINDA (test code = LINDA) Reference RangesNormal: <5.7%Prediabetes: 5.7 - 6.4%Diabetes: > 6.5% Lab Interpretation (test code = 12320-1) Abnormal [facility] CenterTROPONIN [id number] 01:56:53* Test Item Value Reference Range Interpretation Comments TROPONIN I (test code = 8222863686) 0.006 ng/mL See_Comment [Automated message] The system [...] of biotin. Lab Interpretation (test code = 14288-5) Normal [facility] CenterN-TERMINAL [id number] 01:53:35* Test Item Value Reference Range Interpretation Comme nts NT-proBNP (test code = 9171817263) 4370 pg/mL See_Comment H [Automated message] The system which generated this result transmitted reference range: <=450. The reference range was not used to interpret this result as normal/abnormal. LINDA (test code = LINDA) Biotin has been reported to cause a negative bias, interpret results relative to patient's use of biotin. Lab Interpretation (test code = 60138-2) Abnormal [facility] CenterCOMP. METABOLIC PANEL (23031)2022-01-12 01:46:13* Test Item Value Reference Range Interpretation Comme nts NA (test code = 3029064556) 133 mmol/L 135-145 L K (test code = 2718066920) 5.0 mmol/L 3.5-5.0 CL (test code = 7242408248) 97 mmol/L 98-108 L CO2 TOTAL (test code = 8763626855) 31 mmol/L 23-31 AGAP (test code = 3153951703) 2-16 BUN (test code = 4501565541) 60 mg/dL 7-23 H GLUCOSE (test code = 4563500437) 105 mg/dL 70-110 CREATININE (test code = 2212984050) 2.37 mg/dL 0.50-1.04 H TOTAL BILI (test code = 8790934304) 0.4 mg/dL 0.1-1.1 CALCIUM (test code = 4249110145) 8.2 mg/dL 8.6-10.6 L T PROTEIN (test code = 4711634628) 6.1 g/dL 6.3-8.2 L ALBUMIN (test code = 1374303871) 3.1 g/dL 3.5-5.0 L ALK PHOS (test code = 4862664256) 116 U/L 34-122 ALTv (test code = 1742-6) 27 U/L 5-35 AST(SGOT) (test code = 6930083661) 25 U/L 13-40 eGFR (test code = 9053828325) mL/min/1.73m2 LINDA (test code = LINDA) Association [...] imaging tests). Lab Interpretation (test code = 84925-3) Abnormal [facility] WITH [id number] 00:26:48* Test Item Value Reference Range Interpretation [...] g/dL 31.6-35.1 L RDW-SD (test code = 41112-8) 52.2 fL 39.0-49.9 H RDW-CV (test code = 788-0) 15.6 % 12.0-15.5 H PLT (test code = 777-3) See_Comment [Automated messa ge] The system which generated this result transmitted reference range: 166 - 358 10*3/?L. The reference range was not used to interpret this result as normal/abnormal. MPV (test code = 63840-8) 12.2 fL 9.5-12.9 NRBC/100 WBC (test code = 0389404203) See_Comment [Automated GoodChime! ssage] The system which generated this result transmitted reference range: 0.0 - 10.0 /100 WBCs. The reference range was not used to interpret this result as normal/abnormal. NRBC x10^3 (test code = 1969486301) See_Comment [Automated messa ge] The system which generated this result transmitted reference range: 10*3/?L. The reference range was not used to interpret this result as normal/abnormal. GRAN MAT (NEUT) % (test code = 770-8) 81.5 % IMM GRAN % (test code = 2910626890) 0.60 % LYMPH % (test code = 736-9) 11.4 % MONO % (test code = 5905-5) 5.9 % EOS % (test code = 713-8) 0.1 % BASO % (test code = 706-2) 0.5 % GRAN MAT x10^3(ANC) (test code = 1437523456) 8.31 10*3/uL 1.88-7.09 H IMM GRAN x10^3 (test code = 6370881766) 0.06 10*3/uL 0.00-0.06 LYMPH x10^3 (test code = 731-0) 1.16 10*3/uL 1.32-3.29 L MONO x10^3 (test code = 742-7) 0.60 10*3/uL 0.33-0.92 EOS x10^3 (test code = 711-2) 0.03-0.39 L BASO x10^3 (test code = 704-7) 0.05 10*3/uL 0.01-0.07 Lab Interpretation (test code = 23852-2) Abnormal [facility] [id number] 15:24:08* Test Item Value Reference Range Interpretation Comments TROPONIN I (test code = 0318316060) 0.006 ng/mL See_Comment [Automated message] The system [...] of biotin. Lab Interpretation (test code = 18430-9) Normal [facility]-OXZ5974-49-08 15:20:50* Test Item Value Reference Range Interpretation Comme nts NT-proBNP (test code = 0295986126) 4630 pg/mL See_Comment H [Automated message] The system which generated this result transmitted reference range: <=450. The reference range was not used to interpret this result as normal/abnormal. LINDA (test code = LINDA) Biotin has been reported to cause a negative bias, interpret results relative to patient's use of biotin. Lab Interpretation (test code = 66899-5) Abnormal [facility]. METABOLIC PANEL (15988)2022-01-11 15:10:28* Test Item Value Reference Range Interpretation Comme nts NA (test code = 2020616335) 132 mmol/L 135-145 L K (test code = 7906421165) 4.7 mmol/L 3.5-5.0 CL (test code = 1192621993) 95 mmol/L 98-108 L CO2 TOTAL (test code = 5449054800) 29 mmol/L 23-31 AGAP (test code = 3120163234) 2-16 BUN (test code = 2484182795) 56 mg/dL 7-23 H GLUCOSE (test code = 1347203891) 123 mg/dL 70-110 H CREATININE (test code = 3895864884) 2.49 mg/dL 0.50-1.04 H TOTAL BILI (test code = 8568894244) 0.4 mg/dL 0.1-1.1 CALCIUM (test code = 2008678010) 8.4 mg/dL 8.6-10.6 L T PROTEIN (test code = 3706669394) 6.5 g/dL 6.3-8.2 ALBUMIN (test code = 6603152571) 3.5 g/dL 3.5-5.0 ALK PHOS (test code = 6364878864) 142 U/L 34-122 H ALTv (test code = 1742-6) 31 U/L 5-35 AST(SGOT) (test code = 2346597010) 29 U/L 13-40 eGFR (test code = 3604432300) mL/min/1.73m2 LINDA (test code = LINDA) Association [...] imaging tests). Lab Interpretation (test code = 27326-6) [facility]normal [facility] 15:10:08* Test Item Value Reference Range Interpretation Comme [facility] LIPASE (test code = 7598736760) 165 U/L 0-220 Lab Interpretation (test cod e = 54591-3) Normal [facility] CenterACTIVATED PARTIAL THRMPLAS XLM4518-04-33 15:07:46* Test Item Value Reference Range Interpretation Comme [facility] APTT Patient (test code = 3173-2) See_Comment [Automated message] The system which generated this result transmitted reference range: 23 - 38 Seconds. The reference range was not used to interpret this result as normal/abnormal. LINDA (test code = LINDA) The [facility] patient population mean normal value for aPTT is 30 seconds. Lab Interpretation (test code = 26179-6) Normal [facility] CenterPROTHROMBIN TIME / [id number] 15:05:46* Test Item Value Reference Range Interpretation [...] the indications. Lab Interpretation (test code = 34563-5) Abnormal [facility] WITH GUXT4827-18-01 14:53:25* Test Item Value Reference Range Interpretation [...] g/dL 31.6-35.1 L RDW-SD (test code = 14192-0) 53.0 fL 39.0-49.9 H RDW-CV (test code = 788-0) 15.7 % 12.0-15.5 H PLT (test code = 777-3) See_Comment [Automated messa ge] The system which generated this result transmitted reference range: 166 - 358 10*3/?L. The reference range was not used to interpret this result as normal/abnormal. MPV (test code = 98920-8) 12.3 fL 9.5-12.9 NRBC/100 WBC (test code = 5702096674) See_Comment [Automated me ssage] The system which generated this result transmitted reference range: 0.0 - 10.0 /100 WBCs. The reference range was not used to interpret this result as normal/abnormal. NRBC x10^3 (test code = 1977419121) See_Comment [Automated messa ge] The system which generated this result transmitted reference range: 10*3/?L. The reference range was not used to interpret this result as normal/abnormal. GRAN MAT (NEUT) % (test code = 770-8) 78.6 % IMM GRAN % (test code = 9815354318) 0.50 % LYMPH % (test code = 736-9) 14.2 % MONO % (test code = 5905-5) 6.0 % EOS % (test code = 713-8) 0.4 % BASO % (test code = 706-2) 0.3 % GRAN MAT x10^3(ANC) (test code = 8158258942) 8.74 10*3/uL 1.88-7.09 H IMM GRAN x10^3 (test code = 5330550137) 0.05 10*3/uL 0.00-0.06 LYMPH x10^3 (test code = 731-0) 1.58 10*3/uL 1.32-3.29 MONO x10^3 (test code = 742-7) 0.67 10*3/uL 0.33-0.92 EOS x10^3 (test code = 711-2) 0.04 10*3/uL 0.03-0.39 BASO x10^3 (test code = 704-7) 0.03 10*3/uL 0.01-0.07 Lab Interpretation (test code = 94978-5) Abnormal [facility]2022-10-19 17:35:00* Test Item Value Reference Range Interpretation Comme nts Glucose POC (test code = Glucose POC) 319 70-99 [facility] WestOieotivXTWEZKAWEY9357-99-17 17:28:00* Test Item Value Reference Range Interpretation Comme nts Coronavirus (COVID-19) ZULMA (test code = Coronavirus (COVID-19) ZULMA) Not Detected (12/22/21 12:28 PM) [facility] WestCHEM ITPTH4335-92-51 08:46:00* Test Item Value Reference Range Interpretation [...] code = M agnesium Lvl) 1.7 1.8-2.4 [facility]rbel[facility]wXPAZJVMZF9930-65-53 08:46:00* Test Item Value Reference Range Interpretation [...] code = M agnesium Lvl) 1.7 1.8-2.4 [facility] WestOhflofnWADMLCLVTX9759-56-52 08:46:00* Test Item Value Reference Range Interpretation [...] (test code = PTT) 33.8 s 22.9-35.8 [facility]2022-10-18 08:23:00* Test Item Value Reference Range Interpretation [...] code = M agnesium Lvl) 2.4 1.8-2.4 [facility] CenterUipbiyhOIWPSPSUTI0870-03-09 08:23:00* Test Item Value Reference Range Interpretation [...] MPV (test code = MPV) 10.7 7.4-10.4 [facility]2022-10-17 21:59:00* Test Item Value Reference Range Interpretation Comme nts Gluc POC Comment 1 (test cod e = Gluc POC Comment 1) Notified RN/MD Gluc POC Comment 2 (test cod e = Gluc POC Comment 2) Cleaned Meter [facility] WestGdcihsiEOLVLH2026-17-78 18:14:31* Test Item Value Reference Range Interpretation Comme [facility] RADRPT (test code = RADRPT) EXAM: XR [...] to cardiomegaly with a significant pericardial effusion. [facility] LHQVX8466-35-69 04:58:00* Test Item Value Reference Range Interpretation Comme [facility] Glucose Lvl (test code = Glucose Lvl) [...] 10.0-20.0 eGFR (test code = eGFR) 47 [facility] [employer] AZKTZ9693-74-74 05:09:00* Test Item Value Reference Range Interpretation Comme [facility] Glucose Lvl (test code = Glucose Lvl) [...] 2.5-4.5 eGFR (test code = eGFR) 40 [facility]LybiuirAVWCYBOFV5946-80-83 05:09:00* Test Item Value Reference Range Interpretation Comme nts Albumin Lvl (test code = Albumin Lvl) 2.5 3.5-5.0 Phosphorus (test code = Phosphorus) 2.9 2.5-4.5 [facility]2022-10-15 05:50:00* Test Item Value Reference Range Interpretation Comme nts Albumin Lvl (test code = Albumin Lvl) 2.4 3.5-5.0 Phosphorus (test code = Phosphorus) 4.0 2.5-4.5 [facility] CenterUosfdjqDNQLERAYFK5261-51-16 05:50:00* Test Item Value Reference Range Interpretation [...] MPV (test code = MPV) 10.8 7.4-10.4 [facility] WestOiwwgfpVMIOZY6460-60-08 21:22:37* Test Item Value Reference Range Interpretation [...] 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 [facility] ZDSDX1080-31-28 11:14:00* Test Item Value Reference Range Interpretation Comme nts Albumin Lvl (test code = Albumin Lvl) 2.3 3.5-5.0 Phosphorus (test code = Phosphorus) 4.6 2.5-4.5 [facility] WestIveaowbGWFYUAQJH2769-89-79 11:14:00* Test Item Value Reference Range Interpretation Comme nts Hgb A1C (test code = Hgb A1C) 7.8 TSH (test code = TSH) 3.740 0.360-3.740 [facility] WestKjhxaepMRVDQWKUNA3514-39-07 11:14:00* Test Item Value Reference Range Interpretation [...] (test code = Basophils #) 0.1 <=0.2 [facility] EOHPONIDJ0676-62-84 11:14:00* Test Item Value Reference Range Interpretation Comme nts Hgb A1C (test code = Hgb A1C) 7.8 [facility] WestXdqrwqyMSRGGHBYMW7428-07-35 06:48:36* Test Item Value Reference Range Interpretation [...] (test code = Basophils #) 0.2 <=0.2 [facility] [employer]2022-10-14 03:40:00* Test Item Value Reference Range Interpretation Comme nts proBNP (test code = proBNP) 897 <=450 [Automated [employer]] The system which generated this result transmitted reference range: <=450. The reference range was not used to interpret this result as normal/abnormal. [facility] PavagbyKYFTYLLGF7874-95-30 03:40:00* Test Item Value Reference Range Interpretation Comme nts proBNP (test code = proBNP) 897 <=450 [Automated [employer]] The system which generated this result transmitted reference range: <=450. The reference range was not used to interpret this result as normal/abnormal. [facility] [employer]2022-10-14 03:21:00* Test Item Value Reference Range Interpretation Comme nts Total CK (test code = Total CK) 65 12-191 [facility] MnwlgkzNHBBXSERK7060-56-99 03:21:00* Test Item Value Reference Range Interpretation Comme nts Total CK (test code = Total CK) 65 12-191 [facility] WestNmaojwoXUAJZIGWAZ4430-03-75 22:38:00* Test Item Value Reference Range Interpretation Marquis whitehead Coronavirus (COVID-19) ZULMA (test code = Coronavirus (COVID-19) ZULMA) Not Detected (12/16/21 5:38 PM) [facility]AqdmqntPXLUDJ9209-00-08 19:53:34* Test Item Value Reference Range Interpretation Marquis whitehead RADRPT (test code = RADRPT) EXAM: CT RIGHT LOWER EXTREMITY WITHOUT CONTRASTDATE: 12/16/2021 13:56INDICATION: - right knee pain and thigh hematoma, r/o occult fx knee COMPARISON: None.TECHNIQUE: Volumetric CT of the right lower extremity is acquired without contrast. Axial, coronal and sagittal images are provided.IV contrast: None.DLP: Refer to CT protocol formUT SECTION: ERFINDINGS:Sightseeing Guide: NoncontributoryBones: A side plate with multiple screws [...] likely represent Medley-Candelario hematoma. No acute fracture. [facility] CenterNswaevwHVJEEM3123-61-40 17:09:41* Test Item Value Reference Range Interpretation Marquis whitehead RADRPT (test code = RADRPT) EXAM: CT CHEST WITH CONTRAST OUTSIDE CONSULTATION EXAM: CT ABDOMEN AND PELVIS WITH CONTRAST OUTSIDE CONSULTATIONDATE: 12/16/2021 6:23INDICATION: Second interpretation of outside CT performed on trauma transfer patient.COMPARISON: None.OUTSIDE REPORT: From [facility] TECHNIQUE: Images of the chest, abdomen and [...] in general agreement with the outside interpretation. [facility] CenterWkujmxnXWGYIB1990-73-15 11:52:50* Test Item Value Reference Range Interpretation Comme [facility] RADRPT (test code = RADRPT) EXAM: CT CERVICAL SPINE WITHOUT CONTRASTDATE: 12/16/2021 6:35INDICATION: - Outside filmsCOMPARISON: NoneTECHNIQUE: Volumetric CT of the cervical spine is acquired without contrast. Axial, coronal and sagittal images are provided. IV contrast: None.DLP: Refer to CT protocol formUT SECTION: ERFINDINGS: The spine is imaged from the skull base to the level of T2.Sightseeing Guide: Noncontributory.Bones: No acute fracture or malalignment is identified. Multilevel degenerative changes of the spine with vertebral body osteophytes, uncovertebral joint hypertrophy, and facet arthropathy. Soft tissues: Right malar soft tissue contusion with small hematoma. Partially visualized left pleural fluid.IMPRESSION: 1. No acute fracture or malalignment of the cervical spine.2. Multilevel degenerative changes.3. Right malar soft tissue contusion and small hematoma. [facility] CenterYcwrtnhJHSKMO1081-24-11 11:46:07* Test Item Value Reference Range Interpretation Comme [facility] RADRPT (test code = RADRPT) EXAM: CT [...] brain could be considered at clinical discretion. [facility] CenterRytupvzDLELDL2195-78-40 11:41:30* Test Item Value Reference Range Interpretation Comme nts RADRPT (test code = RADRPT) EXAM: CT FACIAL BONES WITHOUT CONTRASTDATE: 12/16/2021 6:25INDICATION: - Outside films/fallCOMPARISON: NoneTECHNIQUE: Volumetric CT of the facial bones is acquired without contrast. Axial, coronal and sagittal images are provided. IV contrast: None.DLP: Refer to CT protocol formUT SECTION: ERFINDINGS: Sightseeing Guide: Noncontributory.Bones: Limited evaluation on the frontal and [...] malar soft tissue contusion and small hematoma. [facility] CenterFwfwzupQPBLMIXJGB1135-17-95 11:27:00* Test Item Value Reference Range Interpretation Comme nts PT (test code = PT) 15.4 s 12.0-14.7 INR (test code = INR) 1.23 1 0.85-1.17 PTT (test code = PTT) 32.4 s 22.9-35.8 [facility]URINE AND EWVNT5751-44-18 11:27:00* Test Item Value Reference Range Interpretation [...] (test code = UA Mucus) Few /LPF [facility] History and Physical Notes Date/Time Note Provider Source 2021-12-22 22:00:00 Beverly Chawla MD: PER FORMEvent Display: History and PhysicalAuthored Date: [id number] and Physical Code Status: Full Resuscitation Chief Complaint: Transfer from [facility] under Dr. Buckley for R thigh [...] hospital. She was transferred from the to [facility] for higher level of care given pain [...] contusion and small hematoma. [4] Assessment/Plan: 1. Medley Candelario lesion (T14.8XXA) Nonoperative management per trauma surgeryCompression wrap applied in the EDCompartment checks overnight, with removal of compression 1-2 times daily, to evaluate legCleared for DVT prophylaxis Ordered: Admit/Condition, 12/16/21 19:53:00 CDT, Status: Inpatient, Acute, Location: [address] [place] [address], Expected LOS: 2 Midnights, Valeria Barkley MD, [...] 140-180Resume levemir at half dose 10 units [id number] soliqua 48 units daily at home. - [...] CDT Beverly Chawla MDElectronically Signed: 12/16/21 20:06 [facility] 2021-12-22 22:00:00 Beverly Chawla MD: PER FORMEvent Display: History and PhysicalAuthored Date: [id number]'s blood pressure has been borderline low since hospitalization. We will still continue with IV Lasix challenge, 1 dose.Discontinue losartan, hydralazine, doxazosinContinue with labetalol with holding parametersPatient recently prescribed levothyroxine 50 mcg daily while actually taking 75 mcg at home. Check TSH in a.m. Resume levothyroxine 50 mcg daily inpatient. Beverly Chawla MDElectronically Signed: 12/16/21 20:14 [facility] 2021-12-22 22:00:00 Beverly Chawla MD: PER FORMEvent Display: History and PhysicalAuthored Date: [id number] team will be admitting patient as primary. Hospitalist service will be signing off at this time. Please feel free to reconsult us as needed. Discussed with the team and they are comfortable taking care of renal dysfunction themselves.Beverly Chawla MDElectronically Signed: 12/16/21 21:13 [facility] Notes Date/Time Note Provider Source 2021-12-20 12:48:00 [...] to cardiomegaly with a significant pericardial effusion. [facility] 2021-12-17 14:55:00 EXAM: XR RIGHT HAND 3 [...] 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 [facility] 2021-12-16 14:26:58 EXAM: CT RIGHT LOWER EXTREMITY WITHOUT CONTRAST DATE: 12/16/2021 13:56 INDICATION: - right knee pain and thigh hematoma, r/o occult fx knee COMPARISON: None. TECHNIQUE: Volumetric CT of the right lower extremity is acquired without contrast. Axial, coronal and sagittal images are provided. IV contrast: None. DLP: Refer to CT protocol form [place] SECTION: ER FINDINGS: Sightseeing Guide: Noncontributory Bones: A side plate with multiple [...] likely represent Medley-Candelario hematoma. No acute fracture. [facility] 2021-12-16 06:36:07 EXAM: CT CERVICAL SP INE WITHOUT CONTRAST DATE: 12/16/2021 6:35 INDICATION: - Outside films COMPARISON: None TECHNIQUE: Volumetric CT of the cervical spine is acquired without contrast. Axial, coronal and sagittal images are provided. IV contrast: None. DLP: Refer to CT protocol form [place] SECTION: ER FINDINGS: The spine is imaged from the skull base to the level of T2. Sightseeing Guide: Noncontributory. Bones: No acute fracture or malalignment [...] malar soft tissue contusion and small hematoma. [facility] 2021-12-16 06:27:59 EXAM: CT BRAIN WITHO UT [...] brain could be considered at clinical discretion. [facility] 2021-12-16 06:27:59 EXAM: CT FACIAL BONE S WITHOUT CONTRAST DATE: 12/16/2021 6:25 INDICATION: - Outside films/fall COMPARISON: None TECHNIQUE: Volumetric CT of the facial bones is acquired without contrast. Axial, coronal and sagittal images are provided. IV contrast: None. DLP: Refer to CT protocol form [place] SECTION: ER FINDINGS: Sightseeing Guide: Noncontributory. Bones: Limited evaluation on the frontal [...] malar soft tissue contusion and small hematoma. [facility] 2021-12-16 06:27:43 EXAM: CT CHEST WITH CONTRAST OUTSIDE CONSULTATION EXAM: CT ABDOMEN AND PELVIS WITH CONTRAST OUTSIDE CONSULTATION DATE: 12/16/2021 6:23 INDICATION: Second interpretation of outside CT performed on trauma transfer patient. COMPARISON: None. OUTSIDE REPORT: From [facility] TECHNIQUE: Images of the chest, abdomen and [...] in general agreement with the outside interpretation. [facility]
[2024-06-25 18:34] LABS: Absolute Eosinophils 0.1 K/uL (0-0.5); Absolute Lymphocytes (CBC) 0.6 K/uL (0.7-4.9); Absolute Monocytes 0.3 K/uL (0.1-1.3); Absolute Neutrophil 4.9 K/uL (1.8-8.0); Basophils % 0.8 % (0-1.3); Hematocrit 25.5 % (36.0-45.0); Lymphocytes % 9.6 % (15.3-44.8); MCH 29.9 pg (27.0-35.0); MCHC 31.5 g/dL (32.0-36.0); MPV 10.1 fL (7.6-11.3); Monocytes % 5.8 % (3.3-12.3); Neutrophils % 82.8 % (41.7-73.7); Nucleated Red Blood Cells % 0.1 % (0-0); Platelets 145 thou/uL (152-406); RBC Red Blood Cell Count 2.69 M/uL (3.86-4.86); Red Cell Distribution Width 18.3 % (12.1-15.2)
[2024-06-25] MEDS ORDERED: FAMOTIDINE 20 MG/2 ML VIAL IV ONE (18:42)
[2024-06-25] MEDS ORDERED: ONDANSETRON 4 MG/2 ML VIAL ONE (18:42)
[2024-06-25] MEDS ORDERED: MORPHINE 4 MG/ML SYR ONE (18:42)
[2024-06-25] MEDS ORDERED: NA CHLORIDE 0.9% 1,000 ML ONE (18:42)
[2024-06-25 18:44] LABS: PT Prothrombin Time 16.2 SECONDS (10-13.0); Protime INR 1.45
--- NOTE | 2024-06-25 18:47 | RAD REPORT ---
EXAMINATION: ONE VIEW CHEST XR CLINICAL INDICATION: ABDOMINAL DISTENTION TECHNIQUE: Frontal chest projection is submitted. Examination is limited by patient positioning and t echnique. COMPARISON: 06/02/2024 FINDINGS: Moderate airspace opacity right lower lung likely representing infiltrate/pneumonia. Mild pulmonary e dmitri also present. The heart is moderately enlarged in size. No displaced fractures identified. IMPRESSION: Moderate airspace opacity right lower lung likely representing pneumonia. Underlying CHF pattern is also present.
[2024-06-25 18:58] LABS: ALT/SGPT 15 U/L (13-56); Albumin 2.8 g/dL (3.4-5.0); Albumin/Globulin Ratio 0.8 (1.1-1.8); Alkaline Phosphatase 108 U/L (45-117); Anion Gap 6.2 mEq/L (5.0-15.0); BUN Blood Urea Nitrogen 86 mg/dL (7-18); Bicarbonate 28 mEq/L (21-32); Bilirubin Total 0.3 mg/dL (0.2-1.0); Globulin 3.5 g/dL (2.3-3.5); Glomerular Filtration Rate 18 ml/min (=/>90); Glucose Level 165 mg/dL (74-106); Lipase 102 U/L (13-75); NT PRO-BNP 7083 pg/mL (<450); Potassium 5.2 mEq/L (3.5-5.1); Protein, Total 6.3 g/dL (6.4-8.2); Sodium Level 137 mEq/L (136-145)
[2024-06-25 18:59] LABS: AST/SGOT < 10 U/L (15-37); Bilirubin Direct < 0.2 mg/dL (0-0.2); Bilirubin Indirect, Calculated 0.1 mg/dL (0.2-0.8)
--- NOTE | 2024-06-25 19:32 | RAD REPORT ---
EXAMINATION: CT ABDOMEN AND PELVIS WITHOUT CONTRAST CLINICAL INDICATION: ABD PAIN TECHNIQUE: CT abdomen and pelvis was performed, without IV contrast, as per department protocol. Axia l, sagittal and coronal reconstructions were obtained. One or more of the following dose reduction techniques were used: Automated exposure control, adjustment of the mA and kV according to the patien t size, and iterative reconstruction. Unless otherwise specified, incidental findings do not require dedicated imaging follow-up. COMPARISON: 06/04/2024 FINDINGS: The lack of intravenous contrast limits the sensitivity of this exam for evaluation of solid visceral organs, vascular structures, and retroperitoneum. LOWER CHEST: Small bilateral pleural effusions with airspace opacity/consolidation in both lung bases , greater on the left. Pneumonia is a possibility versus atelectasis. LIVER:Mild hepatomegaly with fatty liver. Cholecystectomy clips. SPLEEN: Normal size. No focal lesion. PANCREAS: No mass, ductal dilation, or sid-pancreatic fluid. ADRENALS: 18 mm left adrenal mass is present, probably an adenoma. Normal right adrenal gland. KIDNEYS AND URETERS: Small calcifications inferior right kidney without hydronephrosis. No left renal stone or hydronephrosis. URINARY BLADDER: Normal contour. GASTROINTESTINAL TRACT: No evidence of bowel obstruction, significant free fluid, free air or abscess . APPENDIX: Normal appendix. LYMPH NODES: No lymphadenopathy. MUSCULOSKELETAL: Hardware is present proximal left femur. ADDITIONAL FINDINGS: Mild free fluid is seen in the abdomen and pelvis, particularly notable on the l eft flank. Generalized anasarca noted. IMPRESSION: No definitive acute process seen in the abdomen or pelvis. Generalized fluid retention pattern is pre sent. Airspace opacity with pleural fluid in both lung bases may represent atelectasis or pneumonia.
[2024-06-25] MEDS ORDERED: CEFTRIAXONE 1000 MG/VIAL ONE (20:10)
--- NOTE | 2024-06-25 20:22 | ER ---
Nurse's Notes [facility] Name: Kaitlynn Snider Age: 79 yrs Sex: Female : 1945 Arrival Date: 06/25/2024 Time: 17:59 Bed 23 Private MD: Diagnosis: Abdominal tenderness;Chronic kidney disease, unspecified-acute on chronic ;Anemia, unspecified;Hyperkalemia;Edema, unspecified;Combined systolic (congestive) and diastolic (congestive) heart failure;Obesity, unspecified;Pleural effusion, not elsewhere classified-bilateral;Abdominal pain, Generalized;Type 2 diabetes mellitus with hyperglycemia Presentation: 06/25 18:03 Chief complaint: EMS states: HALFWAY STAFF STATES PT HAVING ABDOMINAL PAIN. bp Coronavirus screen: At this time, the client does not indicate any symptoms associated with coronavirus-19. Ebola Screen: No symptoms or risks identified at this time. Initial Sepsis Screen: Does the patient meet any 2 criteria? Altered Mental Status. No. Patient's initial sepsis screen is negative. Does the patient have a suspected source of infection? No. Patient's initial sepsis screen is negative. Risk Assessment: Do you want to hurt yourself or someone else? Patient reports no desire to harm self or others. Note [place]. Note PT AOx0 BASELINE, ONLY REPEATS PHRASE "HELP ME". Onset of symptoms is unknown. Care prior to arrival: Glucose check: 208. 18:03 Method Of Arrival: EMS: [facility] bp 18:03 Acuity: RHINA 3 bp Triage Assessment: 18:05 General: Appears in no apparent distress. obese, Behavior is agitated, anxious, bp restless. Pain: Unable to use pain scale. Does not appear to understand pain scale. EENT: No deficits noted. Neuro: Level of Consciousness is awake, confused, Oriented to none. Cardiovascular: Rhythm is sinus rhythm. Respiratory: No deficits noted. GI: Abdomen is non-distended, obese, Abd is soft X 4 quads. : No signs and/or symptoms were reported regarding the genitourinary system. Derm: No deficits noted. Musculoskeletal: No deficits noted. 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 - Infectious Disease History:: Denies. - Social history:: Smoking status: Patient denies any tobacco usage or history of. - Family history:: not pertinent. Screenin:06 [facility] ED Fall Risk Assessment (Adult) History of falling in the last 3 months, bp including since admission No falls in past 3 months (0 pts) Confusion or Disorientation Yes (5 pts) Intoxicated or Sedated No (0 pts) Impaired Gait Yes (1 pt) Mobility Assist Device Used No (0 pt) Altered Elimination No (0 pt) Score/Fall Risk Level 3 or more points = High Risk Oriented to surroundings. Abuse screen: Denies threats or abuse. Denies injuries from another. Nutritional screening: No deficits noted. Tuberculosis screening: No symptoms or risk factors identified. Assessment: 18:06 General: Appears in no apparent distress. Behavior is agitated, anxious, restless. GI: bp Bowel sounds present X 4 quads. 19:24 General: Appears in no apparent distress. uncomfortable, obese, unkempt, Behavior is vc1 quiet. Pain: Unable to use pain scale. Does not appear to understand pain scale. Neuro: Level of Consciousness is lethargic, Oriented to person. Cardiovascular: Heart tones S1 S2 present Capillary refill < 3 seconds. Respiratory: Airway is patent Trachea midline Respiratory effort is even, unlabored, Respiratory pattern is regular, symmetrical, Breath sounds are clear bilaterally. GI: Abdomen is round obese, Bowel sounds present X 4 quads. : No deficits noted. No signs and/or symptoms were reported regarding the genitourinary system. EENT: No deficits noted. No signs and/or symptoms were reported regarding the EENT system. Derm: Skin is intact, Skin is dry, Skin is normal, Skin temperature is cool. Musculoskeletal: No deficits noted. 20:41 Reassessment: Patient appears in no apparent distress at this time. No changes from vc1 previously documented assessment. Patient and/or family updated on plan of care and expected duration. Pain level reassessed. Patient is alert, oriented x 3, equal unlabored respirations, skin warm/dry/pink. 21:56 : uterus at vaginal opening. vc1 Vital Signs: 18:03 BP 130 / 60; Pulse 56; Resp 16; Temp 98; Pulse Ox 98% on 3 lpm NC; bp 19:25 BP 141 / 63; Pulse 54; Resp 16; Pulse Ox 100% ; vc1 19:30 Temp 98.2; vc1 20:40 BP 129 / 59; Pulse 48; Resp 16; Pulse Ox 100% ; vc1 21:56 BP 121 / 65; Pulse 51; Resp 18; Pulse Ox 99% ; vc1 Tatum Coma Score: 20:00 Eye Response: spontaneous(4). Motor Response: obeys commands(6). Verbal Response: farzana oriented(5). Total: 15. ED Course: 18:03 Patient arrived in ED. bp 18:05 Triage completed. bp 18:05 Arm band placed on. bp 18:06 Patient has correct armband on for positive identification. bp 18:08 Pradip Robbins MD is Attending Physician. farzana 18:22 Fuentes Denny, RN is Primary Nurse. bp 18:45 XRAY Chest (1 view) In Process Unspecified. EDMS 19:01 EKG done, by ED staff. tm3 19:18 Abdomen In Process Unspecified. EDMS 20:06 First set of blood cultures drawn by me, Second set of blood cultures drawn by me. cp4 20:18 Bossman Prieto MD is Hospitalizing Provider. farzana 20:41 Primary Nurse role handed off by Fuentes Denny, RN vc1 20:41 Mirian Rincon, KARL is Primary Nurse. vc1 21:50 Barbosa cath inserted, using sterile technique, 16 Fr., by me, balloon inflated, to vc1 gravity drainage, urine specimen collected. 21:57 No provider procedures requiring assistance completed. Patient admitted, IV remains in vc1 place. 21:58 Provided Education on: barbosa catheter placement. vc1 Administered Medications: 20:18 Discontinued: ns 0.9% 1000 ml IV at 1000 ml once; to be given as a bolus over 60 minutescha 18:46 Drug: morphine IVP or IV 2 mg IVP once over 4 mins Route: IVP; Infused Over: 4 mins; bp Site: right forearm; 20:14 Follow up: Response: No adverse reaction cp4 18:47 Drug: NS 0.9% IV 1000 ml IV at 1000 ml once; to be given as a bolus over 60 minutes bp Route: IV; Rate: 1000 ml; Site: right forearm; 20:18 Follow up: IV Status: Order to discontinue infusion vc1 18:47 Drug: Famotidine IVP 20 mg IVP once; dilute with 10 mL 0.9% NaCl; give over 2 minutes bp Route: IVP; Site: right forearm; 20:14 Follow up: Response: No adverse reaction cp4 18:47 Drug: Ondansetron IVP 4 mg IVP once; over 2 minutes Route: IVP; Site: right forearm; bp 20:14 Follow up: Response: No adverse reaction cp4 20:14 Drug: Rocephin IV 1 grams IV at per protocol once; Given slow IV push per pharmacy cp4 instructions Route: IV; Rate: per protocol; Site: right antecubital; 20:14 Follow up: Response: No adverse reaction; IV Status: Completed infusion cp4 20:33 Drug: Furosemide IVP 40 mg IVP once; give over 2 minutes Route: IVP; Site: right cp4 antecubital; 21:40 Follow up: Response: No adverse reaction cp4 Medication: 18:06 VIS not applicable for this client. bp Outcome: 20:21 Decision to Hospitalize by Provider. farzana 21:58 Admitted to ER Hold. Please see [facility] for further documentation. vc1 21:58 Condition: stable 21:58 Instructed on the need for admit, 06/26 05:23 Patient left the ED. Signatures: Dispatcher [employer] Valeriano Martin tm3 Pradip Robbins MD MD cha Baxter, Heather, RN RN Fuentes Denny RN RN Mirian Rincon RN RN vcHermelinda Ramos cp4
--- NOTE | 2024-06-25 20:22 | EDPHYS ---
Physician Documentation [facility] Name: Kaitlynn Snider Age: 79 yrs Sex: Female : 1945 Arrival Date: 06/25/2024 Time: 17:59 Bed 23 Private MD: ED Physician Pradip Robbins HPI: 06/25 19:55 This 79 yrs old Female presents to ER via EMS with complaints of Abdominal farzana Pain. 19:55 The patient has shortness of breath at rest. Onset: The symptoms/episode began/occurred farzana 3 day(s) ago. Duration: The symptoms are continuous, and are unchanged since they started. The patient's shortness of breath is aggravated by nothing, supine position. The patient presents with abdominal pain abdominal distention. Onset: The symptoms/episode began/occurred 3 day(s) ago. in senior care. Associated signs and symptoms: Pertinent positives: non-productive cough. Severity of symptoms: At their worst the symptoms were moderate in the emergency department the symptoms have improved mildly. 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 - Infectious Disease History:: Denies. - Social history:: Smoking status: Patient denies any tobacco usage or history of. - Family history:: not pertinent. ROS: 19:55 Constitutional: Negative for fever, chills, and weight loss, Eyes: Negative for injury, farzana pain, redness, and discharge, ENT: Negative for injury, pain, and discharge, Neck: Negative for injury, pain, and swelling, Cardiovascular: Negative for chest pain, palpitations, and edema, Back: Negative for injury and pain, : Negative for injury, bleeding, discharge, and swelling, Neuro: Negative for headache, weakness, numbness, tingling, and seizure, Psych: Negative for depression, anxiety, suicide ideation, homicidal ideation, and hallucinations, Allergy/Immunology: Negative for hives, rash, and allergies, Endocrine: Negative for neck swelling, polydipsia, polyuria, polyphagia, and marked weight changes, Hematologic/Lymphatic: Negative for swollen nodes, abnormal bleeding, and unusual bruising, 19:55 Respiratory: Positive for shortness of breath, at rest. 19:55 Abdomen/GI: Positive for abdominal pain, abdominal distension, 19:55 MS/extremity: Positive for decreased range of motion, pain, swelling, of the right leg and left leg, Exam: 19:55 Constitutional: This is a well developed, well nourished patient who is awake, alert, farzana and in no acute distress. Head/Face: Normocephalic, atraumatic. Eyes: Pupils equal round and reactive to light, extra-ocular motions intact. Lids and lashes normal. Conjunctiva and sclera are non-icteric and not injected. Cornea within normal limits. Periorbital areas with no swelling, redness, or edema. ENT: Nares patent. No nasal discharge, no septal abnormalities noted. Tympanic membranes are normal and external auditory canals are clear. Oropharynx with no redness, swelling, or masses, exudates, or evidence of obstruction, uvula midline. Mucous membranes moist. Neck: Trachea midline, no thyromegaly or masses palpated, and no cervical lymphadenopathy. Supple, full range of motion without nuchal rigidity, or vertebral point tenderness. No Meningismus. Chest/axilla: Normal chest wall appearance and motion. Nontender with no deformity. No lesions are appreciated. Cardiovascular: Regular rate and rhythm with a normal S1 and S2. No gallops, murmurs, or rubs. Normal PMI, no JVD. No pulse deficits. Back: No spinal tenderness. No costovertebral tenderness. Full range of motion. Skin: Warm, dry with normal turgor. Normal color with no rashes, no lesions, and no evidence of cellulitis. Psych: Awake, alert, with orientation to person, place and time. Behavior, mood, and affect are within normal limits. 19:55 ECG was reviewed by the Attending Physician. 20:00 Abdomen/GI: Inspection: distension, Bowel sounds: active, Palpation: mild abdominal farzana tenderness, in all quadrants, Liver: no appreciated palpable abnormalities, Hernia: not appreciated, 20:00 Musculoskeletal/extremity: ROM: limited active range of motion due to pain, limited passive range of motion due to pain, Circulation is intact in all extremities. Sensation intact. Compartment Syndrome exam of affected extremity: is normal. Weight bearing: is unable to bear weight, DVT Exam: no tenderness, negative Homans' sign noted on exam, no appreciated bluish discoloration, no erythema, no increased warmth, pain, swelling, Calves: have equal circumference, 20:00 Neuro: Orientation: no acute changes, Mentation: no acute changes, Memory: unable to test, Cranial nerves: no acute changes, Cerebellar function: unable to test, Motor: moves all fours, Sensation: no obvious gross deficits, Gait: not tested. seizure activity, is not displayed by the patient, Vital Signs: 18:03 BP 130 / 60; Pulse 56; Resp 16; Temp 98; Pulse Ox 98% on 3 lpm NC; bp 19:25 BP 141 / 63; Pulse 54; Resp 16; Pulse Ox 100% ; vc1 19:30 Temp 98.2; vc1 20:40 BP 129 / 59; Pulse 48; Resp 16; Pulse Ox 100% ; vc1 21:56 BP 121 / 65; Pulse 51; Resp 18; Pulse Ox 99% ; vc1 Tatum Coma Score: 20:00 Eye Response: spontaneous(4). Motor Response: obeys commands(6). Verbal Response: farzana oriented(5). Total: 15. MDM: 18:09 Medical Screening Exam initiated farzana 20:02 Differential diagnosis: Anemia Bronchitis CHF exacerbation, pneumonia, pulmonary edema, farzana Pulmonary Embolism reactive airway disease, Sepsis Unstable Angina appendicitis, bowel obstruction, cholecystitis, Cholelithiasis, diverticulitis, gastritis, non-specific abd pain, pancreatitis, Perf. Duodenal Ulcer, Ureterolithiasis, urinary tract infection. Antibiotic administration: Rocephin and Zithromax given. Differential Diagnosis altered mental status, sepsis, flu. Immunization status: Pneumococcal vaccine: within last 5 years. Influenza vaccine: within last 5 years. Data reviewed: vital signs, nurses notes, EMS record, senior care records, lab test result(s), EKG, radiologic studies, CT scan, plain films. Consideration of Admission/Observation Patient was admitted/placed on observation. Escalation of care including admission/observation considered. I considered the following discharge prescriptions or medication management in the emergency department Medications were administered in the Emergency Department. See MAR. Independent interpretation of the following test(s) in the Emergency Department EKG: See my EKG interpretation above CT Scan: My interpretation is ct abd pelvis. Test considered but Not performed: Ultrasound no abd usg. Historians other than the Patient: EMS: ems well informed. Care significantly affected by the following chronic conditions: Diabetes, Hypertension, Chronic Obstructive Pulmonary Disease, Obesity, Chronic Kidney Disease. Counseling: I had a detailed discussion with the patient and/or guardian regarding the historical points, exam findings, and any diagnostic results supporting the discharge/admit diagnosis, the presence of at least one elevated blood pressure reading (>120/80) during this emergency department visit, lab results, radiology results, the need for further work-up and treatment in the hospital. 06/25 18:13 Order name: Basic Metabolic Panel; Complete Time: 19:39 farzana 06/25 18:13 Order name: CBC with Diff; Complete Time: 19:39 farzana 06/25 18:13 Order name: LFT's; Complete Time: 19:39 farzana 06/25 18:13 Order name: Magnesium; Complete Time: 19:39 [facility] 06/25 18:13 Order name: NT PRO-BNP; Complete Time: 19:39 farzana 06/25 18:13 Order name: PT-INR; Complete Time: 19:39 [facility] 06/25 18:13 Order name: Troponin HS; Complete Time: 19:39 farzana 06/25 18:13 Order name: Lipase; Complete Time: 19:39 [facility] 06/25 18:13 Order name: Urinalysis w/ reflexes [facility] 06/25 19:39 Order name: Blood Culture Adult (2) [facility] 06/25 22:23 Order name: Urine Culture [facility] 06/25 22:41 Order name: C-Reactive Protein [facility] 06/25 22:41 Order name: CBC with Automated Diff [facility] 06/25 22:41 Order name: Comprehensive Metabolic Panel [facility] 06/25 22:41 Order name: Lipid Profile [facility] 06/25 22:41 Order name: Lipid Profile [facility] 06/25 22:41 Order name: Troponin High Sensitivity [facility] 06/25 23:10 Order name: Glucose, Ancillary Testing [facility] 06/25 18:13 Order name: XRAY Chest (1 view); Complete Time: 19:39 [facility] 06/25 19:05 Order name: Abdomen ; Complete Time: 19:39 [facility] 06/25 22:41 Order name: Echo with Doppler [facility] 06/25 18:13 Order name: EKG; Complete Time: 18:14 farzana 06/25 18:13 Order name: Cardiac monitoring; Complete Time: 18:28 [facility] 06/25 18:13 Order name: EKG - Nurse/Tech; Complete Time: 18:52 [facility] 06/25 18:13 Order name: IV Saline Lock; Complete Time: 18:28 [facility] 06/25 18:13 Order name: Labs collected and sent; Complete Time: 18:28 [facility] 06/25 18:13 Order name: O2 Per Protocol; Complete Time: 18: [facility] 06/25 18:13 Order name: O2 Sat Monitoring; Complete Time: 18: [facility] 06/25 21:56 Order name: Harrison; Complete Time: 21:56 vc1 EC:55 Rate is 56 beats/min. Rhythm is regular. QRS [place] is Normal. MS interval is prolonged farzana at 236 msec. QRS interval is normal. QT interval is normal. No Q waves. T waves are Normal. No ST changes noted. Clinical impression: Abnormal EKG without significant change. Interpreted by me. Reviewed by me. Administered Medications: 20:18 Discontinued: ns 0.9% 1000 ml IV at 1000 ml once; to be given as a bolus over 60 minutescha 18:46 Drug: morphine IVP or IV 2 mg IVP once over 4 mins Route: IVP; Infused Over: 4 mins; bp Site: right forearm; 20:14 Follow up: Response: No adverse reaction cp4 18:47 Drug: NS 0.9% IV 1000 ml IV at 1000 ml once; to be given as a bolus over 60 minutes bp Route: IV; Rate: 1000 ml; Site: right forearm; 20:18 Follow up: IV Status: Order to discontinue infusion vc1 18:47 Drug: Famotidine IVP 20 mg IVP once; dilute with 10 mL 0.9% NaCl; give over 2 minutes bp Route: IVP; Site: right forearm; 20:14 Follow up: Response: No adverse reaction cp4 18:47 Drug: Ondansetron IVP 4 mg IVP once; over 2 minutes Route: IVP; Site: right forearm; bp 20:14 Follow up: Response: No adverse reaction cp4 20:14 Drug: Rocephin IV 1 grams IV at per protocol once; Given slow IV push per pharmacy cp4 instructions Route: IV; Rate: per protocol; Site: right antecubital; 20:14 Follow up: Response: No adverse reaction; IV Status: Completed infusion cp4 20:33 Drug: Furosemide IVP 40 mg IVP once; give over 2 minutes Route: IVP; Site: right cp4 antecubital; 21:40 Follow up: Response: No adverse reaction cp4 Disposition Summary: 06/25/24 20:21 Hospitalization Ordered Notes: Hospitalization Status: Inpatient Admission farzana Provider: Bossman Prieto farzana Condition: Fair farzana Problem: new farzana Symptoms: have improved farzana Bed/Room Type: Standard farzana Location: [facility] ER HOLD(06/25/24 22:39) vc1 Room Assignment: ERHOLD-(06/25/24 22:39) vc1 Diagnosis - Abdominal tenderness farzana - Chronic kidney disease, unspecified - acute on chronic farzana - Anemia, unspecified farzana - Hyperkalemia farzana - Edema, unspecified farzana - Combined systolic (congestive) and diastolic (congestive) heart failure farzana - Obesity, unspecified farzana - Pleural effusion, not elsewhere classified - bilateral farzana - Abdominal pain, Generalized farzana - Type 2 diabetes mellitus with hyperglycemia farzana Forms: - Medication Reconciliation Form farzana - SBAR form farzana - Leadership Thank You Letter farzana Signatures: Dispatcher [employer] EDMS Pradip Robbins MD MD cha Peltier, Brian, RN RN bp Mirian Rincon RN RN vc1 Hermelinda Mixon cp4 Corrections: (The following items were deleted from the chart) 18:14 18:13 BASIC METABOLIC PANEL+C.LAB.BRZ ordered. EDMS EDMS 18:14 18:13 CBC+H.LAB.BRZ ordered. EDMS EDMS 18:14 18:13 HEPATIC FUNCTION+C.LAB.BRZ ordered. EDMS EDMS 18:14 18:13 MAGNESIUM+C.LAB.BRZ ordered. EDMS EDMS 18:14 18:13 PROBNP+C.LAB.BRZ ordered. EDMS EDMS 18:14 18:13 PROTIME (+INR)+COAG.LAB.BRZ ordered. EDMS EDMS 18:14 18:13 Troponin High Sensitivity+C.LAB.BRZ ordered. EDMS EDMS 18:14 18:13 LIPASE+C.LAB.BRZ ordered. EDMS EDMS 18:14 18:13 Urinalysis+U.LAB.BRZ ordered. EDMS EDMS 18:14 18:14 Chest Single View+RAD.RAD.BRZ ordered. EDMS EDMS 19:05 18:14 Abdomen Pelvis W Con+CT.RAD.BRZ ordered. EDMS EDMS : 20:21 Telemetry/MedSurg (Inpatient) [place] [address] 20:21 [place] [address]
[2024-06-25] MEDS ORDERED: FUROSEMIDE 40 MG/4 ML VIAL ONE (20:31)
[2024-06-25 22:18] LABS: Specific Gravity 1.011 (1.005-1.030); Sqamous Epithelial <5 /HPF (None Seen); Urine Bacteria <20 /HPF (<20); Urine Bilirubin NEGATIVE (Negative); Urine Blood Negative (Negative); Urine Clarity Extremely Turbid (Clear); Urine Color Light-Yellow (Yellow); Urine Crystals Unidentified Few /HPF (None Seen); Urine Culture Reflex Order REFLEXED; Urine Glucose NEGATIVE (Negative); Urine Ketones NEGATIVE (Negative); Urine Microscopic Reflex YN ORDER UMIC; Urine Nitrite NEGATIVE (Negative); Urine Protein NEGATIVE (Negative); Urine Urobilinogen Normal (Normal); Urine WBC 20-50 /HPF (<5); Urine WBC Clump Occasional /HPF (None Seen); Urine Yeast (Budding) Few /HPF (None Seen)
[2024-06-25] MEDS ORDERED: ALBUTEROL 2.5 MG/3 ML NEB SOL NEB PRN (22:32)
--- NOTE | 2024-06-25 22:39 | P.HP ---
Patient History Date of Service: 06/26/24 Reason for admission: Abdominal pain History of Present Illness: 79-year-old female with a past medical history of chronic kidney disease, combined systolic and diastolic heart failure, presenting with abdominal pain for the last 3 days. Patient is from [facility]. Associated symptoms include cough alongside shortness of breath. Patient is a poor historian and there are no family members at bedside. Attempted to call family on the phone however no answer. Allergies No Known Allergies Allergy (Unverified 06/26/24 02:35) Home Medications: Allopurinol 300 mg PO DAILY AT SUPPER 09/17/23 Buspirone HCl [Buspar] 10 mg PO TID 09/17/23 Cetirizine HCl [Zyrtec*] 10 mg PO DAILY 09/17/23 Cholecalciferol (Vitamin D3) [Vitamin D3] 1,000 units PO NOON 09/17/23 Doxazosin Mesylate 4 mg PO BID 09/17/23 Escitalopram [Lexapro*] 10 mg PO DAILY 09/17/23 Gabapentin [Neurontin*] 300 mg PO BID 09/17/23 Hydralazine HCl 75 mg PO TID 09/17/23 Insulin Glargine,Hum.rec.anlog [Lantus] 15 units SQ DAILY 09/17/23 Magnesium Oxide [Magnesium] 400 mg PO NOON 09/17/23 Montelukast [Singulair*] 10 mg PO DAILY 09/17/23 Losartan Potassium [Cozaar*] 50 mg PO BID 11/22/23 cloNIDine HCL [Catapres*] 0.1 mg PO BID PRN 30 Days #60 tab 11/22/23 Ipratropium Neb [Atrovent*] 0.2 mg IH Q6H PRN 30 Days #120 ml 12/22/23 Acetaminophen [Tylenol] 650 mg PO Q6HP PRN 05/20/24 Famotidine 20 mg PO DAILY 05/20/24 Insulin Lispro See Protocol SQ ACHS 05/20/24 Multivitamin [Multiple Vitamins] 1 each PO DAILY 05/20/24 Docusate [Colace Cap*] 200 mg PO DAILY PRN #30 cap 05/24/24 Ascorbic Acid [Vitamin C] 500 mg PO BID 06/03/24 Calcium Carbonate [Calcium] 500 mg PO DAILY 06/03/24 Nebivolol HCl [Bystolic] 10 mg PO DAILY 06/03/24 Protein Supplement [Promod] 30 ml PO BID 06/03/24 Zinc Sulfate [Zinc Sulfate*] 220 mg PO DAILY 06/03/24 Glucerna Shake [Glucerna*] 237 ml PO BID can 06/06/24 - Past Medical/Surgical History Diabetic: Yes -: HTN -: HLD -: COPD-with home O2 -: DM II -: Diastolic CHF -: IBS -: depression -: osteoarthritis -: Left hip fracture -: tonsilectomy -: R leg plates/pin -: dilation and curettage -: Lefthip ORIF Psychosocial/ Personal History: patient lives at [place] - Family History Mother -: Lung disease Father -: Diabetes - Social History Alcohol use: No CD- Drugs: No Caffeine use: No Review of Systems is unable to be obtained Physical Examination - Physical Exam General: In no apparent distress, Obese HEENT: Normocephalic Neck: Supple Respiratory: Clear to auscultation bilaterally Cardiovascular: Normal pulses, Normal S1 S2, Edema Capillary refill: <2 Seconds Gastrointestinal: Normal bowel sounds Musculoskeletal: No clubbing Integumentary: No rashes Lymphatics: No axilla or inguinal lymphadenopathy - Studies Laboratory Data (last 24 hrs) 06/25/24 06/25/24 06/25/24 18:27 18:27 18:27 WBC 6.00 Hgb 8.0 L Hct 25.5 L Plt Count 145 L PT 16.2 H INR 1.45 Sodium 137 Potassium 5.2 H BUN 86 H Creatinine 2.61 H Glucose 165 H Magnesium 3.0 H Total Bilirubin 0.3 AST < 10 L ALT 15 Alkaline Phosphatase 108 Lipase 102 H Assessment and Plan - Plan Abdominal pain Pneumonia CHF exacerbation UTI COPD (on home O2) Acute on chronic kidney disease Hyperkalemia Hypertension Type 2 diabetes mellitus High cholesterol Anemia Major depressive disorder Obstructive sleep apnea Irritable bowel syndrome Cognitive impairment Admit to floor Start PPI, consider GI consult in the a.m. Start IV Levaquin, urine culture pending, blood cultures pending Start IV Lasix, daily weights, strict I's and O's, fluid restriction Lipid panel pending Continue losartan, hydralazine, and Bystolic Start sliding scale insulin Start Kayexalate, repeat potassium in the a.m. Hold gabapentin for now, once patient's more arousable restart gabapentin Continue Lexapro and BuSpar Continue doxazosin DuoNebs as needed CPAP nightly DVT prophylaxis with heparin - Advance Directives Does patient have a Living Will: No Does patient have a Durable POA for Healthcare: No
[2024-06-25] MEDS ORDERED: Levofloxacin 750mg IV 750 MG/150 ML BAG IV SCH (23:00)
[2024-06-25] MEDS ORDERED: Levofloxacin 750mg IV 750 MG/150 ML BAG IV ONE (23:23)
[2024-06-25] MEDS: Levofloxacin 750mg IV 750 MG/150 ML BAG IV ONE (23:25)
[2024-06-26] MEDS ORDERED: HEPARIN 5000 UNIT/ML 1 ML VIAL ONE (00:37)
[2024-06-26] MEDS: HEPARIN 5000 UNIT/ML 1 ML VIAL SQ SCH (00:42)
[2024-06-26 01:29] LABS: C-Reactive Protein 4.29 mg/L (<3.00); Troponin High Sensitivity 16.6 pg/mL (<58.9)
[2024-06-26] MEDS ORDERED: GLUCAGON 1 MG/VIAL IM PRN (03:17)
[2024-06-26] MEDS ORDERED: D10W 125 ML IV PRN (03:17)
[2024-06-26] MEDS ORDERED: SOD POLYSTYREN SUL 15 GM/60 ML UCUP ONE (04:27)
[2024-06-26] MEDS: SOD POLYSTYREN SUL 15 GM/60 ML UCUP PO ONE (04:35)
[2024-06-26 06:53] LABS: Absolute Basophils 0.1 K/uL (0-0.5); Absolute Eosinophils 0.1 K/uL (0-0.5); Absolute Lymphocytes (CBC) 0.7 K/uL (0.7-4.9); Absolute Monocytes 0.5 K/uL (0.1-1.3); Absolute Neutrophil 5.9 K/uL (1.8-8.0); Basophils % 0.8 % (0-1.3); Eosinophils % 1.5 % (0-4.4); Hematocrit 25.3 % (36.0-45.0); Hemoglobin 7.9 g/dL (12.0-15.0); Lymphocytes % 9.4 % (15.3-44.8); MCH 30.1 pg (27.0-35.0); MCHC 31.4 g/dL (32.0-36.0); MPV 10.9 fL (7.6-11.3); Neutrophils % 81.3 % (41.7-73.7); Nucleated Red Blood Cells % 0.2 % (0-0); Platelets 115 thou/uL (152-406); RBC Red Blood Cell Count 2.64 M/uL (3.86-4.86); Red Cell Distribution Width 18.4 % (12.1-15.2)
[2024-06-26] MEDS: INSULIN REGULAR (HUMAN) 100 UNIT/ML SQ SCH (07:30)
[2024-06-26] MEDS: DOXYCYCLINE 100 MG CAP PO SCH (08:42)
[2024-06-26] MEDS: FUROSEMIDE 40 MG/4 ML VIAL IV SCH (08:42)
[2024-06-26] MEDS: CEFTRIAXONE 1,000 MG in NA CHLORIDE 0.9% 50 ML IVPB SCH (08:42)
[2024-06-26 09:54] LABS: ALT/SGPT 16 U/L (13-56); Albumin 2.7 g/dL (3.4-5.0); Albumin/Globulin Ratio 0.7 (1.1-1.8); Alkaline Phosphatase 95 U/L (45-117); Anion Gap 3.5 mEq/L (5.0-15.0); BUN Blood Urea Nitrogen 81 mg/dL (7-18); Bicarbonate 29 mEq/L (21-32); Bilirubin Total 0.3 mg/dL (0.2-1.0); Globulin 3.7 g/dL (2.3-3.5); Glomerular Filtration Rate 19 ml/min (=/>90); Glucose Level 101 mg/dL (74-106); HDL Cholesterol 38 mg/dL (40-60); LDL Cholesterol, Calculated 48 mg/dL (<130); LDL Cholesterol,Calc NonReport 48; Potassium 5.5 mEq/L (3.5-5.1); Protein, Total 6.4 g/dL (6.4-8.2); Sodium Level 144 mEq/L (136-145)
[2024-06-26 09:58] LABS: AST/SGOT < 10 U/L (15-37)
--- NOTE | 2024-06-26 11:44 | ECHO ---
HEIGHT: 4 ft 11 in WEIGHT: 209 lb 7.026 oz DATE OF STUDY: 06/26/[address]: Bossman Prieto MD 2-DIMENSIONAL: YES M.MODE: YES DOPPLER: YES COLOR FLOW: YES TDS: YES PORTABLE: YES DEFINITY: BUBBLE STUDY: DIAGNOSIS: HEAR FAILURE EXACERBATION CARDIAC HISTORY: CATHERIZATION: SURGERY: PROSTHETIC VALVE: PACEMAKER: MEASUREMENTS (cm) DIASTOLIC (NORMALS) SYSTOLIC (NORMALS) IVSd 1.3 (0.6-1.2) LA Diam 3.0 (1.9-4.0) LVEF 60-65% LVIDd 3.8 (3.5-5.7) LVIDs 2.4 (2.0-3.5) %FS 36% LVPWd 1.4 (0.6-1.2) Ao Diam 2.7 (2.0-3.7) 2 DIMENSIONAL ASSESSMENT: RIGHT ATRIUM: LEFT ATRIUM: RIGHT VENTRICLE: LEFT VENTRICLE: TRICUSPID VALVE: MITRAL VALVE: PULMONIC VALVE: AORTIC VALVE: PERICARDIAL EFFUSION: AORTIC ROOT: LEFT VENTRICULAR WALL MOTION: DOPPLER/COLOR FLOW: COMMENTS: 1. LIMITED IMAGES OBTAINED 2. OVERALL LEFT VENTRICULAR SYSTOLIC FUNCTION LOOKS NORMAL, EJECTION FRACTION 60-65%, NORMAL WALL MOTION TECHNOLOGIST: VERO MARTÍNEZ/ FLORENTINO ALVARADO, AKBAR
--- NOTE | 2024-06-26 12:35 | EKG ---
Test Date: 2024-06-25 Test Time: 18:59:54 Caster Operator: TM MEASUREMENT RESULTS: Intervals: Rate: 56 CO: 236 QRSD: 98 QT: 466 QTc: 449 Soso: P: 71 CO: 236 QRS: 106 T: 82 INTERPRETIVE STATEMENTS: Sinus bradycardia with 1st degree AV block with fusion complexes Indeterminate axis Low voltage QRS Septal infarct, age undetermined Lateral infarct, age undetermined Abnormal ECG Compared to ECG 06/02/2024 21:04:54 Indeterminate axis now present Sinus rhythm no longer present Ventricular premature complex(es) no longer present Left anterior fascicular block no longer present Myocardial infarct finding still present Electronically Signed On 06-26-24 12:34:51 CDT by Brian Petty
--- NOTE | 2024-06-26 15:38 | P.PN ---
Subjective Date of Service: 06/26/24 Chief Complaint: Abdominal pain Subjective: No chest pain. c/o shortness of breath. No nausea or vomiting. No abdominal pain. No obvious bleeding. Looks comfortable in the bed. Objective: General appearance: Alert and comfortable CVS: Normal S1 and S2 Lungs: Clear to auscultation bilaterally Abdomen: Soft, bowel sounds present, no tenderness Extremities: mild b/l lower extremity edema Physical Examination - Vital Signs Temperature: 97.8 F Blood Pressure: 105/53 Pulse: 58 Respirations: 14 Pulse Ox (%): 98 - Studies Laboratory Data (last 24 hrs) 06/25/24 06/25/24 06/25/24 18:27 18:27 18:27 WBC 6.00 Hgb 8.0 L Hct 25.5 L Plt Count 145 L PT 16.2 H INR 1.45 Sodium 137 Potassium 5.2 H BUN 86 H Creatinine 2.61 H Glucose 165 H Magnesium 3.0 H Total Bilirubin 0.3 AST < 10 L ALT 15 Alkaline Phosphatase 108 Lipase 102 H Assessment And Plan - Plan 1. Abdominal pain: resolved, CT abd neg except fluid overlaod - CT abdominal pelvis showed pleural effusion, pneumonia, anasarca, fatty liver with hepatomegaly. 2. Pneumonia: Continue antibiotics. 3. Acute diastolic CHF: Continue Lasix, monitor closely. - Echo limited study, EF 60 to 65%. 4. COPD (on home O2): Continue inhalers/nebs. 5 Acute on chronic kidney disease, CKD 3B: Monitor renal function closely with diuretics, nephrology consult requested. 6. Hyperkalemia: Given a dose of Kayexalate, potassium still high, will give 1 dose of Lokelma, nephrology consult requested. 7. Hypertension: Continue current medications. 8. Type 2 diabetes mellitus: Monitor sugars closely 9. High cholesterol 10. Chronic anemia, on and off thrombocytopenia: Monitor closely. 11. Major depressive disorder 12. Obstructive sleep apnea 13. Irritable bowel syndrome 14. Cognitive impairment Plan discussed with patient, nursing staff and case management team.
[2024-06-26] MEDS ORDERED: SODIUM ZIRCONIUM CYCLOSILICATE 10 GM/PKT PO ONE (16:00)
[2024-06-26] MEDS: SODIUM ZIRCONIUM CYCLOSILICATE 10 GM/PKT PO ONE (16:33)
[2024-06-26] MEDS: MELATONIN 5 MG TABLET PO PRN (21:16)
--- NOTE | 2024-06-26 21:31 | P.CNS ---
Date of Consult: 06/27/24 Reason for Consult: RAYNE/ CKD Requesting Physician: Raulito King Chief Complaint: Abdominal pain History of Present Illness: 79-year-old female with a past medical history of chronic kidney disease, combined systolic and diastolic heart failure, presenting with abdominal pain for the last 3 days. Patient is from [facility]. Associated symptoms include cough alongside shortness of breath. Patient is a poor historian and there are no family members at bedside. Attempted to call family on the phone however no answer. 19:55 This 79 yrs old Female presents to ER via EMS with complaints of Abdominal farzana Pain. 19:55 The patient has shortness of breath at rest. Onset: The symptoms/episode began/occurred farzana 3 day(s) ago. Duration: The symptoms are continuous, and are unchanged since they started. The patient's shortness of breath is aggravated by nothing, supine position. The patient presents with abdominal pain abdominal distention. Onset: The symptoms/episode began/occurred 3 day(s) ago. in intermediate. Associated signs and symptoms: Pertinent positives: non-productive cough. Severity of symptoms: At their worst the symptoms were moderate in the emergency department the symptoms have improved mildly. Limited HPI/ ROS due to mental status Allergies No Known Allergies Allergy (Unverified 06/26/24 02:35) Home medications list reviewed: Yes Home Medications: Allopurinol 300 mg PO DAILY AT SUPPER 09/17/23 Buspirone HCl [Buspar] 10 mg PO TID 09/17/23 Cetirizine HCl [Zyrtec*] 10 mg PO DAILY 09/17/23 Cholecalciferol (Vitamin D3) [Vitamin D3] 1,000 units PO NOON 09/17/23 Doxazosin Mesylate 4 mg PO BID 09/17/23 Escitalopram [Lexapro*] 10 mg PO DAILY 09/17/23 Gabapentin [Neurontin*] 300 mg PO BID 09/17/23 Hydralazine HCl 75 mg PO TID 09/17/23 Insulin Glargine,Hum.rec.anlog [Lantus] 15 units SQ DAILY 09/17/23 Magnesium Oxide [Magnesium] 400 mg PO DAILY 09/17/23 Montelukast [Singulair*] 10 mg PO DAILY 09/17/23 Losartan Potassium [Cozaar*] 50 mg PO BID 11/22/23 cloNIDine HCL [Catapres*] 0.1 mg PO BID PRN 30 Days #60 tab 11/22/23 Acetaminophen [Tylenol] 650 mg PO Q6HP PRN 05/20/24 Famotidine 20 mg PO DAILY 05/20/24 Insulin Lispro See Protocol SQ ACHS 05/20/24 Multivitamin [Multiple Vitamins] 1 each PO DAILY 05/20/24 Docusate [Colace Cap*] 200 mg PO DAILY PRN #30 cap 05/24/24 Ascorbic Acid [Vitamin C] 500 mg PO BID 06/03/24 Calcium Carbonate [Calcium] 500 mg PO DAILY 06/03/24 Nebivolol HCl [Bystolic] 10 mg PO DAILY 06/03/24 Protein Supplement [Promod] 30 ml PO BID 06/03/24 Zinc Sulfate [Zinc Sulfate*] 220 mg PO DAILY 06/03/24 Acetaminophen with Codeine [Acetaminophen-Cod #3 Tablet] 1 tab PO Q6HP PRN 06/26/24 Apixaban [Eliquis *] 2.5 mg PO BID 06/26/24 Aspirin [Aspirin EC 81 MG] 81 mg PO DAILY 06/26/24 Ibuprofen 400 mg PO Q8HP PRN 06/26/24 - Past Medical/Surgical History Diabetic: Yes -: HTN -: HLD -: COPD-with home O2 -: DM II -: Diastolic CHF -: IBS -: depression -: osteoarthritis -: Left hip fracture -: Dysphagia -: tonsilectomy -: R leg plates/pin -: dilation and curettage -: Lefthip ORIF Psychosocial/ Personal History: patient lives at [place] - Family History Mother Medical History: Lung disease Father Medical History: Diabetes - Social History Smoking Status: Unknown if ever smoked Alcohol use: No CD- Drugs: No Caffeine use: No Place of [facility]idence: [facility] Review of Systems 10-point ROS is otherwise unremarkable General: Weakness, Malaise Cardiovascular: Edema Physical Examination Temp Pulse Resp BP Pulse Ox 97.9 F 67 17 115/45 L 96 06/26/24 19:53 06/26/24 19:53 06/26/24 19:53 06/26/24 19:53 06/26/24 20:25 General: In no apparent distress, Cooperative HEENT: Atraumatic Neck: Supple Respiratory: Normal air movement, Diminished Cardiovascular: Regular rate/rhythm, Edema Gastrointestinal: Non-distended, Tenderness Musculoskeletal: No clubbing, No contractures, Tenderness Integumentary: No rashes, No cyanosis Neurological: Normal speech Blood work reviewed in the chart. Imagings Data: EXAMINATION: ONE VIEW CHEST XR CLINICAL INDICATION: ABDOMINAL DISTENTION TECHNIQUE: Frontal chest projection is submitted. Examination is limited by patient positioning and technique. COMPARISON: 06/02/2024 FINDINGS: Moderate airspace opacity right lower lung likely representing infiltrate/pneumonia. Mild pulmonary edema also present. The heart is moderately enlarged in size. No displaced fractures identified. IMPRESSION: Moderate airspace opacity right lower lung likely representing pneumonia. Underlying CHF pattern is also present. EXAMINATION: CT ABDOMEN AND PELVIS WITHOUT CONTRAST CLINICAL INDICATION: ABD PAIN TECHNIQUE: CT abdomen and pelvis was performed, without IV contrast, as per department protocol. Axial, sagittal and coronal reconstructions were obtained. One or more of the following dose reduction techniques were used: Automated exposure control, adjustment of the mA and kV according to the patient size, and iterative reconstruction. Unless otherwise specified, incidental findings do not require dedicated imaging follow-up. COMPARISON: 06/04/2024 FINDINGS: The lack of intravenous contrast limits the sensitivity of this exam for evaluation of solid visceral organs, vascular structures, and retroperitoneum. LOWER CHEST: Small bilateral pleural effusions with airspace opacity/consolidation in both lung bases, greater on the left. Pneumonia is a possibility versus atelectasis. LIVER:Mild hepatomegaly with fatty liver. Cholecystectomy clips. SPLEEN: Normal size. No focal lesion. PANCREAS: No mass, ductal dilation, or sid-pancreatic fluid. ADRENALS: 18 mm left adrenal mass is present, probably an adenoma. Normal right adrenal gland. KIDNEYS AND URETERS: Small calcifications inferior right kidney without hydronephrosis. No left renal stone or hydronephrosis. URINARY BLADDER: Normal contour. GASTROINTESTINAL TRACT: No evidence of bowel obstruction, significant free fluid, free air or abscess. APPENDIX: Normal appendix. LYMPH NODES: No lymphadenopathy. MUSCULOSKELETAL: Hardware is present proximal left femur. ADDITIONAL FINDINGS: Mild free fluid is seen in the abdomen and pelvis, par ticularly notable on the left flank. Generalized anasarca noted. IMPRESSION: No definitive acute process seen in the abdomen or pelvis. Generalized fluid retention pattern is present. Airspace opacity with pleural fluid in both lung bases may represent atelectasis or pneumonia. LEFT VENTRICULAR WALL MOTION: DOPPLER/COLOR FLOW: COMMENTS: 1. LIMITED IMAGES OBTAINED 2. OVERALL LEFT VENTRICULAR SYSTOLIC FUNCTION LOOKS NORMAL, EJECTION FRACTION 60-65%, NORMAL WALL MOTION Conclusions/Impression: Stage I RAYNE may be CRS complicated by relative hypotension on admission CKD IV -No NSAIDs -Increase Lasix 40mg IV q6h Hyperkalemia -Lokelma prn -Continue Lasix HTN with CKD/ CHF -Hold antihypertensives at this time and restart as indicated Diastolic CHF, A/C -Increase Lasix -Low sodium diet DM II with CKD -RISS Hypoalbuminemia -Albumin 25mg IV X1 Anemia in chronic illness Thrombocytopenia -Monitor CBC -Retacrit prn Acute Cystitis with Hematuria -Follow up cx Hospitalist and ER notes reviewed Case reviewed with Dr. King Thank you kindly for the consultation
[2024-06-27 04:59] LABS: Absolute Lymphocytes (CBC) 0.6 K/uL (0.7-4.9); Absolute Monocytes 0.4 K/uL (0.1-1.3); Absolute Neutrophil 5.9 K/uL (1.8-8.0); Basophils % 0.6 % (0-1.3); Eosinophils % 0.6 % (0-4.4); Hematocrit 23.9 % (36.0-45.0); Hemoglobin 7.6 g/dL (12.0-15.0); Lymphocytes % 8.8 % (15.3-44.8); MCHC 31.9 g/dL (32.0-36.0); MCV 94.1 fL (80-100); Monocytes % 5.7 % (3.3-12.3); Neutrophils % 84.3 % (41.7-73.7); Platelets 139 thou/uL (152-406); RBC Red Blood Cell Count 2.54 M/uL (3.86-4.86)
[2024-06-27 05:14] LABS: Anion Gap 8.2 mEq/L (5.0-15.0); Potassium 5.2 mEq/L (3.5-5.1)
[2024-06-27] MEDS: ALBUMIN HUMAN 25% 100 ML IV ONE ×2 (11:00→14:18)
[2024-06-27] MEDS: FUROSEMIDE 40 MG/4 ML VIAL IV SCH ×2 (11:00→14:19)
--- NOTE | 2024-06-27 14:06 | RAD REPORT ---
EXAM: CT brain without contrast HISTORY: Confusion COMPARISON: 2023 TECHNIQUE: Multiple contiguous axial images were obtained and a CT of the brain without contrast.. Sagittal and coronal reconstruction performed. Automated exposure control, adjustment of the mA and/or kV according to patient size, and/or iterative reconstruction. Unless otherwise specified, incidental f indings do not require dedicated imaging follow-up FINDINGS: Some images are degraded by patient motion artifact. An intracranial bleed is not seen Ventricles are normal caliber No extra-axial fluid collection noted Old lacunar infarctions are present. No fluid within the visualized sinuses or mastoids noted. IMPRESSION: Limited head CT without visualization of an acute abnormality. If the patient continues to have symptoms to suggest an acute intracranial abnormality then MRI of th e brain would be recommended.
--- NOTE | 2024-06-27 14:23 | RAD REPORT ---
EXAM: Chest Single View HISTORY: 79 years Female chf COMPARISON: 06/25/2024 FINDINGS: LUNGS/PLEURA: Pulmonary edema with bilateral pleural effusions which may be slightly worsened compare d with 06/25/2024. Basilar airspace disease probably due to effusions and atelectasis however pneumonia difficult to exclude radiographic. CARDIAC/MEDIASTINUM: Moderate cardiomegaly. UPPER ABDOMEN: No significant abnormality. BONES: No acute abnormality. LINES/TUBES/OTHER: N/A IMPRESSION: Pulmonary edema which may be marginally progressed compared with 06/25/2024. Basilar pneumonia would b e difficult to exclude radiographically.
--- NOTE | 2024-06-27 16:06 | P.PN ---
Subjective Date of Service: 06/27/24 Chief Complaint: Abdominal pain Subjective: No chest pain or shortness of breath. No nausea or vomiting. No abdominal pain. No obvious bleeding. Looks comfortable in the bed. more confused today Objective: General appearance: Alert and comfortable but confused CVS: Normal S1 and S2 Lungs: Clear to auscultation bilaterally Abdomen: Soft, bowel sounds present, no tenderness Extremities: mild b/l lower extremity edema Physical Examination - Vital Signs Temperature: 98.7 F Blood Pressure: 165/68 Pulse: 63 Respirations: 15 Pulse Ox (%): 98 Assessment And Plan - Plan 1. Abdominal pain: resolved, CT abd neg except fluid overlaod - CT abdominal pelvis showed pleural effusion, pneumonia, anasarca, fatty liver with hepatomegaly. 2. Pneumonia: Continue antibiotics. 3. Acute diastolic CHF: Continue Lasix, monitor closely. - Echo limited study, EF 60 to 65%. 4. COPD (on home O2): Continue inhalers/nebs. 5 Acute on chronic kidney disease, CKD 3B: Monitor renal function closely with diuretics, nephrology consult requested. 6. Hyperkalemia: Given a dose of Kayexalate, and Lokelma, K improving, nephrology consult requested. 7. Hypertension: Continue hydralazine, ARB on hold 8. Type 2 diabetes mellitus: Monitor sugars closely 9. High cholesterol 10. Chronic anemia, on and off thrombocytopenia: Monitor closely. 11. Major depressive disorder 12. Obstructive sleep apnea 13. Irritable bowel syndrome 14. Cognitive impairment 15. Encephalopathy: Chest x-ray pneumonia versus CHF, CT head negative, probably metabolic encephalopathy from renal failure, monitor closely. Plan discussed with nursing staff and case management team. d/w nephrology
[2024-06-27] MEDS: ACETAMINOPHEN 500 MG TAB PO PRN (16:38)
[2024-06-27] MEDS ORDERED: Levofloxacin500mg IV 500 MG/100 ML BAG IV SCH (21:00)
[2024-06-27] MEDS: HYDRALAZINE HCL 25 MG TABLET PO SCH (22:13)
[2024-06-28 06:49] LABS: Absolute Basophils 0.1 K/uL (0-0.5); Absolute Eosinophils 0.1 K/uL (0-0.5); Absolute Monocytes 0.6 K/uL (0.1-1.3); Basophils % 0.9 % (0-1.3); Hematocrit 24.9 % (36.0-45.0); Hemoglobin 7.9 g/dL (12.0-15.0); Lymphocytes % 13.3 % (15.3-44.8); MCH 30.1 pg (27.0-35.0); MCHC 31.9 g/dL (32.0-36.0); MCV 94.4 fL (80-100); MPV 10.9 fL (7.6-11.3); Monocytes % 7.2 % (3.3-12.3); Neutrophils % 77.6 % (41.7-73.7); Nucleated Red Blood Cells % 0.1 % (0-0); Platelets 130 thou/uL (152-406); RBC Red Blood Cell Count 2.63 M/uL (3.86-4.86); Red Cell Distribution Width 18.1 % (12.1-15.2)
[2024-06-28 07:08] LABS: Anion Gap 9.5 mEq/L (5.0-15.0); Magnesium 2.6 mg/dL (1.6-2.4); Phosphorus 4.9 mg/dL (2.5-4.9); Potassium 4.5 mEq/L (3.5-5.1)
[2024-06-28 07:49] LABS: Specific Gravity 1.008 (1.005-1.030); Sqamous Epithelial <5 /HPF (None Seen); Urine Bacteria <20 /HPF (<20); Urine Bilirubin NEGATIVE (Negative); Urine Blood Negative (Negative); Urine Clarity Extremely Turbid (Clear); Urine Color Light-Yellow (Yellow); Urine Glucose NEGATIVE (Negative); Urine Ketones NEGATIVE (Negative); Urine Micro Reflex YN NO BILL MICROSCOPIC; Urine Mucus Slight /HPF (None Seen); Urine Nitrite NEGATIVE (Negative); Urine Protein NEGATIVE (Negative); Urine RBC None Seen /HPF (None Seen); Urine Urobilinogen Normal (Normal); Urine WBC >50 /HPF (<5); Urine WBC Clump Few /HPF (None Seen); Urine Yeast (Budding) Moderate /HPF (None Seen)
[2024-06-28] MEDS: NEBIVOLOL HCL 5 MG TAB PO SCH (08:52)
[2024-06-28 09:40] LABS: MA/CREAT RATIO 68.8 (< 30.0); UR MICROALBUMIN 2.2 mg/dL (< 1.9); UR PROTEIN 11.4 mg/dL (<11.9); Urine Protein/Creatinine Ratio 0.36 ratio (<0.15)
[2024-06-28] MEDS ORDERED: ALBUTEROL 2.5 MG/3 ML NEB SOL NEB PRN (12:03)
--- NOTE | 2024-06-28 12:03 | P.PN ---
(S) Pt seen resting in bed, lethargic but NAD noted, on LFNC, barbosa shows good UOP with > 1L urine present, notable peripheral edema noted which pt acknowledges is chronic (O) Vitals reviewed in the EMR General: Appears elderly, chronically ill HEENT: Atraumatic, LFNC Neck: Supple Respiratory: Poor resp effort, non tachypnec, reduced BS at bases Cardiovascular: Distant heart sounds, non tachy Gastrointestinal: Obese, ND, NT Musculoskeletal: 3+ edema below knees b/l, tight, pitting Integumentary: No rashes Neurological: Lethargic, awakens easily, responds briefly, slumped over, minimal spont movement of ext Blood work reviewed in the chart. A/P) Stage I RAYNE, evolving, underlying CKD Stage IV, recurrent RAYNE episodes in the past, likely 2nd to Type 1 CRS/fluid overload, complicated UTI, other -Renal function worsening but acceptable UOP, cont to monitor closely Mod to severe azotemia -In the setting of above, trend closely Abnormal findings in urine, pyuria, other. Acute cystitis. -Yeast also noted on UA, add Fluconazole for coverage Diastolic CHF, A/C. Fluid overload. Acute pulm edema, peripheral edema. Elevated BNP > 10K -Monitor response closely to escalated IV diuretics Suresh Melgar MD, VI
[2024-06-28] MEDS: FLUCONAZOLE 200mg IVPB 100 MG/50 ML BAG IV SCH (13:18)
--- NOTE | 2024-06-28 14:32 | P.PN ---
Subjective Date of Service: 06/28/24 Chief Complaint: Abdominal pain Subjective: No chest pain or shortness of breath. No nausea or vomiting. No abdominal pain. No obvious bleeding. Looks comfortable in the bed. Less confused today Objective: General appearance: Alert and comfortable, confusion much better. CVS: Normal S1 and S2 Lungs: Clear to auscultation bilaterally Abdomen: Soft, bowel sounds present, no tenderness Extremities: mild b/l lower extremity edema Physical Examination - Vital Signs Temperature: 98.1 F Blood Pressure: 132/60 Pulse: 71 Respirations: 18 Pulse Ox (%): 98 - Studies Microbiology Data (last 24 hrs): 06/25/24 21:54 Clean Catch Urine [place] Count - Final >100,000 CFU/ML. 06/25/24 21:54 Clean Catch Urine - Final Assessment And Plan - Plan 1. Abdominal pain: resolved, CT abd neg except fluid overlaod - CT abdominal pelvis showed pleural effusion, pneumonia, anasarca, fatty liver with hepatomegaly. 2. Pneumonia: Continue antibiotics. 3. Acute diastolic CHF: Continue Lasix, monitor closely. - Echo limited study, EF 60 to 65%. 4. COPD (on home O2): Continue inhalers/nebs. 5 Acute on chronic kidney disease, CKD 3B: Monitor renal function closely with diuretics, nephrology consult requested. 6. Hyperkalemia: Given a dose of Kayexalate, and Lokelma, K improving, nephrology consult on board. 7. Hypertension: Continue hydralazine, resume beta-roddy, ARB on hold 8. Type 2 diabetes mellitus: Monitor sugars closely 9. High cholesterol 10. Chronic anemia, on and off thrombocytopenia: Monitor closely. 11. Major depressive disorder 12. Obstructive sleep apnea 13. Irritable bowel syndrome 14. Cognitive impairment 15. Encephalopathy: Chest x-ray pneumonia versus CHF, CT head negative, probably metabolic encephalopathy from renal failure, clinically better today, monitor closely. Plan discussed with patient and nursing staff and case management team. 79-year-old patient admitted with abdominal pain, probably related to volume overload, pain improved. She has pneumonia, acute CHF, and acute renal failure, nephrology is on board, continue antibiotics and IV diuretics. She had some encephalopathy yesterday, imaging negative, probably metabolic encephalopathy from renal failure and infection, clinically better today, discharge plan depending on clinical progress.
[2024-06-28] MEDS: ONDANSETRON 4 MG/2 ML VIAL IV PRN (20:37)
[2024-06-28] MEDS: NYSTATIN PWDR 100000 UNIT/GM TOP SCH (20:38)
[2024-06-29 06:14] LABS: Absolute Eosinophils 0.1 K/uL (0-0.5); Absolute Lymphocytes (CBC) 0.7 K/uL (0.7-4.9); Absolute Monocytes 0.5 K/uL (0.1-1.3); Absolute Neutrophil 6.3 K/uL (1.8-8.0); Basophils % 0.6 % (0-1.3); Hematocrit 26.3 % (36.0-45.0); Hemoglobin 8.4 g/dL (12.0-15.0); Lymphocytes % 8.6 % (15.3-44.8); MCH 30.1 pg (27.0-35.0); MCV 94.3 fL (80-100); MPV 10.8 fL (7.6-11.3); Neutrophils % 82.8 % (41.7-73.7); Platelets 145 thou/uL (152-406); RBC Red Blood Cell Count 2.79 M/uL (3.86-4.86); Red Cell Distribution Width 18.3 % (12.1-15.2)
[2024-06-29 06:37] LABS: Anion Gap 10.3 mEq/L (5.0-15.0); Potassium 4.3 mEq/L (3.5-5.1)
--- NOTE | 2024-06-29 08:04 | P.PN ---
Date of Service: 06/29/24 Subjective Subjective: Patient remains confused. She does not answer my questions. No obvious bleeding. Looks comfortable in the bed. Review of system: 10 point review of systems otherwise negative except as mentioned in subjective Physical Examination - Vital Signs Temperature: 98.1 F Blood Pressure: 132/60 Pulse: 71 Respirations: 18 Pulse Ox (%): 98 Objective: General appearance: Alert and comfortable, confusion CVS: Normal S1 and S2 Lungs: Clear to auscultation bilaterally Abdomen: Soft, bowel sounds present, no tenderness Extremities: mild b/l lower extremity edema - Studies Microbiology Data (last 24 hrs): 06/25/24 21:54 Clean Catch Urine [place] Count - Final >100,000 CFU/ML. 06/25/24 21:54 Clean Catch Urine - Final Assessment And Plan - Plan Abdominal pain : resolved, CT abd neg except fluid overlaod - CT abdominal pelvis showed pleural effusion, pneumonia, anasarca, fatty liver with hepatomegaly. Pneumonia: Continue antibiotics. Acute cystitis: Fluconazole added for yeast in urine Acute diastolic CHF: lasix increased per nephrology, monitor closely. - Echo limited study, EF 60 to 65%. COPD (on home O2): Continue inhalers/nebs. Acute on chronic kidney disease, CKD 3B: Monitor renal function closely with diuretics, nephrology follwing. Creatinine improving Hyperkalemia: Resolved Hypertension: Continue hydralazine, resume beta-roddy, ARB on hold Type 2 diabetes mellitus: Monitor sugars closely High cholesterol Chronic anemia, on and off thrombocytopenia: Monitor closely. Major depressive disorder Obstructive sleep apnea Irritable bowel syndrome Cognitive impairment Encephalopathy: Chest x-ray pneumonia versus CHF, CT head negative, probably metabolic encephalopathy from renal failure, clinically better today, monitor closely. DVT prophylaxis with heparin
[2024-06-29] MEDS: METOLAZONE 5 MG TABLET PO ONE (10:15)
--- NOTE | 2024-06-29 18:36 | P.PN ---
Date of Service: 06/29/24 Vital Signs Temp Pulse Resp BP Pulse Ox 98.2 F 67 18 151/70 H 99 06/29/24 16:00 06/29/24 16:00 06/29/24 16:00 06/29/24 17:24 06/29/24 16:00 Medications Acetaminophen (Acetaminophen 500 Mg Tab) 500 mg PO Q4HP PRN PRN Reason: Pain scale 5-7 (Moderate) Last Admin: 06/28/24 20:48 Dose: 500 mg Albuterol Sulfate (Albuterol 2.5 Mg/3 Ml Neb Jessy) 2.5 mg NEB [id number] PRN PRN Reason: SHORTNESS OF BREATH Doxycycline Monohydrate (Doxycycline 100 Mg Cap) 100 mg PO BID SALLY; Protocol Last Admin: 06/29/24 08:33 Dose: 100 mg Furosemide (Furosemide 40 Mg/4 Ml Vial) 40 mg IV Q6H SALLY Last Admin: 06/29/24 12:54 Dose: 40 mg Glucagon (Glucagon 1 Mg/Vial) 1 mg IM 1X PRN PRN Reason: HYPOGLYCEMIA Heparin Sodium (Porcine) (Heparin 5000 Unit/Ml 1 Ml Vial) 5,000 unit SQ Q8HR SALLY Last Admin: 06/29/24 16:17 Dose: 5,000 unit Hydralazine HCl (Hydralazine Hcl 25 Mg Tablet) 50 mg PO TID SALLY Last Admin: 06/29/24 12:54 Dose: 50 mg Dextrose (Dextrose 10% Water Iv Soln.) 125 mls @ 0 mls/hr IV PRN PRN; Protocol PRN Reason: HYPOGLYCEMIA Ceftriaxone Sodium 1,000 mg/ (Sodium Chloride) 50 mls @ 100 mls/hr IVPB DAILY SALLY; Protocol Last Admin: 06/29/24 08:32 Dose: 50 mls Fluconazole (Diflucan 200 Mg/100 Ml Ivpb (Premix)) 100 mg in 50 mls @ 50 mls/hr IV Q24H SALLY; Protocol Last Admin: 06/29/24 12:15 Dose: 50 mls Insulin Human Regular (Insulin Regular (Human) 100 Unit/Ml) 0 unit SQ ACHS SALLY; Protocol Last Admin: 06/29/24 16:28 Dose: Not Given Melatonin (Melatonin 5 Mg Tablet) 10 mg PO BEDTIME PRN PRN PRN Reason: INSOMNIA Last Admin: 06/28/24 20:48 Dose: 10 mg Nebivolol (Nebivolol Hcl 5 Mg Tab) 10 mg PO DAILY [facility] Last Admin: 06/29/24 08:33 Dose: 10 mg Nystatin (Nystatin Pwdr [id number] Unit/Gm) 1 appl TOP BID [facility] Last Admin: 06/29/24 08:34 Dose: 1 appl Ondansetron HCl (Ondansetron 4 Mg/2 Ml Vial) 4 mg IV Q6HP PRN PRN Reason: NAUSEA / VOMITING Last Admin: 06/28/24 20:37 Dose: 4 mg Microbiology Results 06/25/24 21:54 Clean Catch Urine [place] Count - Final >100,000 CFU/ML. 06/25/24 21:54 Clean Catch Urine - Final 06/25/24 20:06 Blood - Blood Aerobic Blood Culture - Preliminary No growth in 24 hours. 06/25/24 20:06 Blood - Blood Anaerobic Blood Culture - Preliminary No growth in 24 hours. 06/25/24 20:00 Blood - Blood Aerobic Blood Culture - Preliminary No growth in 24 hours. 06/25/24 20:00 Blood - Blood Anaerobic Blood Culture - Preliminary No growth in 24 hours. Assessment/ Plan: Nephrology No dyspnea No chest pain No acute events overnight Limited IH/ ROS due to mental status Vitals, medications, blood work and imaging reviewed in the chart General: In no apparent distress, Cooperative HEENT: Atraumatic Neck: Supple Respiratory: Normal air movement, Diminished Cardiovascular: Regular rate/rhythm, Edema Gastrointestinal: Non-distended, Tenderness Musculoskeletal: No clubbing, No contractures, Tenderness Integumentary: No rashes, No cyanosis Neurological: Normal speech Blood work reviewed in the chart. Imagings Data: EXAMINATION: ONE VIEW CHEST XR CLINICAL INDICATION: ABDOMINAL DISTENTION TECHNIQUE: Frontal chest projection is submitted. Examination is limited by patient positioning and technique. COMPARISON: 06/02/2024 FINDINGS: Moderate airspace opacity right lower lung likely representing infiltrate/pneumonia. Mild pulmonary edema also present. The heart is moderately enlarged in size. No displaced fractures identified. IMPRESSION: Moderate airspace opacity right lower lung likely representing pneumonia. Underlying CHF pattern is also present. EXAMINATION: CT ABDOMEN AND PELVIS WITHOUT CONTRAST CLINICAL INDICATION: ABD PAIN TECHNIQUE: CT abdomen and pelvis was performed, without IV contrast, as per department protocol. Axial, sagittal and coronal reconstructions were obtained. One or more of the following dose reduction techniques were used: Automated exposure control, adjustment of the mA and kV according to the patient size, and iterative reconstruction. Unless otherwise specified, incidental findings do not require dedicated imaging follow-up. COMPARISON: 06/04/2024 FINDINGS: The lack of intravenous contrast limits the sensitivity of this exam for evaluation of solid visceral organs, vascular structures, and retroperitoneum. LOWER CHEST: Small bilateral pleural effusions with airspace opacity/consolidation in both lung bases, greater on the left. Pneumonia is a possibility versus atelectasis. LIVER:Mild hepatomegaly with fatty liver. Cholecystectomy clips. SPLEEN: Normal size. No focal lesion. PANCREAS: No mass, ductal dilation, or sid-pancreatic fluid. ADRENALS: 18 mm left adrenal mass is present, probably an adenoma. Normal right adrenal gland. KIDNEYS AND URETERS: Small calcifications inferior right kidney without hydronephrosis. No left renal stone or hydronephrosis. URINARY BLADDER: Normal contour. GASTROINTESTINAL TRACT: No evidence of bowel obstruction, significant free fluid, free air or abscess. APPENDIX: Normal appendix. LYMPH NODES: No lymphadenopathy. MUSCULOSKELETAL: Hardware is present proximal left femur. ADDITIONAL FINDINGS: Mild free fluid is seen in the abdomen and pelvis, particularly notable on the left flank. Generalized anasarca noted. IMPRESSION: No definitive acute process seen in the abdomen or pelvis. Generalized fluid retention pattern is present. Airspace opacity with pleural fluid in both lung bases may represent atelectasis or pneumonia. LEFT VENTRICULAR WALL MOTION: DOPPLER/COLOR FLOW: COMMENTS: 1. LIMITED IMAGES OBTAINED 2. OVERALL LEFT VENTRICULAR SYSTOLIC FUNCTION LOOKS NORMAL, EJECTION FRACTION 60-65%, NORMAL WALL MOTION Conclusions/Impression: Stage I RAYNE may be CRS complicated by relative hypotension on admission CKD IV with Proteinuria -No NSAIDs -Continue Lasix 40mg IV q6h Hyperkalemia -Lokelma prn -Continue Lasix HTN with CKD/ CHF -Continue Nebivolol -Continue Hydralazine Diastolic CHF, A/C -Continue Lasix -Low sodium diet DM II with CKD -RISS Hypoalbuminemia -Albumin 25mg IV as needed Anemia in chronic illness Thrombocytopenia -Monitor CBC -Retacrit prn Acute Cystitis with Hematuria -Follow up cx Hospitalist note reviewed
[2024-06-30 08:17] LABS: Absolute Eosinophils 0.1 K/uL (0-0.5); Absolute Lymphocytes (CBC) 0.6 K/uL (0.7-4.9); Absolute Monocytes 0.5 K/uL (0.1-1.3); Absolute Neutrophil 7.8 K/uL (1.8-8.0); Basophils % 0.5 % (0-1.3); Eosinophils % 0.6 % (0-4.4); Hemoglobin 8.4 g/dL (12.0-15.0); Lymphocytes % 6.7 % (15.3-44.8); MCH 30.6 pg (27.0-35.0); MCHC 32.3 g/dL (32.0-36.0); MCV 94.8 fL (80-100); Monocytes % 5.2 % (3.3-12.3); Platelets 140 thou/uL (152-406); RBC Red Blood Cell Count 2.74 M/uL (3.86-4.86)
[2024-06-30 08:47] LABS: Anion Gap 10.1 mEq/L (5.0-15.0); Potassium 4.1 mEq/L (3.5-5.1)
--- NOTE | 2024-06-30 16:28 | P.PN ---
Date of Service: 06/30/24 Subjective Subjective: She is awake and alert. States she does not feel hungry. She remains sleepy during my questioning exam Review of system: 10 point review of systems otherwise negative except as mentioned in subjective Physical Examination - Vital Signs Temperature: 98.1 F Blood Pressure: 132/60 Pulse: 71 Respirations: 18 Pulse Ox (%): 98 Objective: General appearance: Alert and comfortable, confusion CVS: Normal S1 and S2 Lungs: Clear to auscultation bilaterally Abdomen: Soft, bowel sounds present, no tenderness Extremities: mild b/l lower extremity edema - Studies Microbiology Data (last 24 hrs): 06/25/24 21:54 Clean Catch Urine [place] Count - Final >100,000 CFU/ML. 06/25/24 21:54 Clean Catch Urine - Final Assessment And Plan - Plan Abdominal pain : resolved, CT abd neg except fluid overlaod - CT abdominal pelvis showed pleural effusion, pneumonia, anasarca, fatty liver with hepatomegaly. Pneumonia: Continue antibiotics. Acute cystitis: Fluconazole added for yeast in urine Acute diastolic CHF: lasix increased per nephrology, added Zaroxolyn - Echo limited study, EF 60 to 65%. Acute on chronic kidney disease, CKD 3B: Monitor renal function closely with diuretics, nephrology follwing. Creatinine improving Hyperkalemia: Resolved Hypertension: Continue hydralazine, resume beta-roddy, ARB on hold Type 2 diabetes mellitus: Monitor sugars closely High cholesterol COPD (on home O2): Continue inhalers/nebs. Chronic anemia, on and off thrombocytopenia: Monitor closely. Major depressive disorder Obstructive sleep apnea Irritable bowel syndrome Obstructive sleep apnea / cognitive impairment: CPAP nightly Encephalopathy: Chest x-ray pneumonia versus CHF, CT head negative, probably metabolic encephalopathy from renal failure, clinically better today, monitor closely. DVT prophylaxis with heparin
[2024-07-01 07:57] LABS: Absolute Lymphocytes (CBC) 0.6 K/uL (0.7-4.9); Absolute Monocytes 0.4 K/uL (0.1-1.3); Absolute Neutrophil 8.2 K/uL (1.8-8.0); Basophils % 0.4 % (0-1.3); Eosinophils % 0.2 % (0-4.4); Hematocrit 26.1 % (36.0-45.0); Hemoglobin 8.3 g/dL (12.0-15.0); Lymphocytes % 6.2 % (15.3-44.8); MCHC 31.9 g/dL (32.0-36.0); MCV 94.1 fL (80-100); MPV 10.6 fL (7.6-11.3); Monocytes % 4.4 % (3.3-12.3); Neutrophils % 88.8 % (41.7-73.7); Platelets 142 thou/uL (152-406); RBC Red Blood Cell Count 2.78 M/uL (3.86-4.86); Red Cell Distribution Width 17.8 % (12.1-15.2)
[2024-07-01 08:10] LABS: Anion Gap 9.9 mEq/L (5.0-15.0); Potassium 3.9 mEq/L (3.5-5.1)
[2024-07-01 09:12] LABS: Blood Morphology Comment NOT SEEN (NOT SEEN); Platelet Estimate ADEQ; White Blood Cell Scan OK (OK)
[2024-07-01] MEDS: POTASSIUM CL SA 10 MEQ TAB PO ONE (12:00)
[2024-07-01] MEDS: HYDRALAZINE HCL 25 MG TABLET PO SCH (14:04)
--- NOTE | 2024-07-01 16:04 | P.PN ---
Subjective Date of Service: 07/01/24 Chief Complaint: Abdominal pain Subjective: No chest pain or shortness of breath. No nausea or vomiting. No abdominal pain. No obvious bleeding. Looks comfortable in the bed. Objective: General appearance: Alert and comfortable CVS: Normal S1 and S2 Lungs: Clear to auscultation bilaterally Abdomen: Soft, bowel sounds present, no tenderness Extremities: mild b/l lower extremity edema Physical Examination - Vital Signs Temperature: 98.6 F Blood Pressure: 172/75 Pulse: 72 Respirations: 16 Pulse Ox (%): 92 - Studies Microbiology Data (last 24 hrs): 06/25/24 20:06 Blood - Blood Aerobic Blood Culture - Final No growth in 5 days. 06/25/24 20:06 Blood - Blood Anaerobic Blood Culture - Final No growth in 5 days. 06/25/24 20:00 Blood - Blood Aerobic Blood Culture - Final No growth in 5 days. 06/25/24 20:00 Blood - Blood Anaerobic Blood Culture - Final No growth in 5 days. Assessment And Plan - Plan 1. Abdominal pain: resolved - CT abdominal pelvis showed pleural effusion, pneumonia, anasarca, fatty liver with hepatomegaly. 2. Pneumonia: Continue antibiotics. 3. Acute diastolic CHF: Continue Lasix, monitor closely. - Echo limited study, EF 60 to 65%. - Still volume overloaded 4. COPD (on home O2): Continue inhalers/nebs. 5 Acute on chronic kidney disease, CKD 3B: Monitor renal function closely with diuretics, nephrology consult on board 6. Hyperkalemia: Given a dose of Kayexalate, and Lokelma, K improved, nephrology consult on board. 7. Hypertension: Continue hydralazine and beta-roddy, ARB on hold 8. Type 2 diabetes mellitus: Monitor sugars closely 9. High cholesterol 10. Chronic anemia, on and off thrombocytopenia: Monitor closely. 11. Major depressive disorder 12. Obstructive sleep apnea 13. Irritable bowel syndrome 14. Cognitive impairment 15. Encephalopathy: Chest x-ray pneumonia versus CHF, CT head negative, probably metabolic encephalopathy from renal failure - Encephalopathy resolved, monitor closely. Plan discussed with patient and nursing staff and case management team. 79-year-old patient admitted with abdominal pain, probably related to volume overload, pain improved. She has pneumonia, acute CHF, and acute renal failure, nephrology is on board, continue antibiotics and IV diuretics. She had some encephalopathy yesterday, imaging negative, probably metabolic encephalopathy from renal failure and infection, clinically better, discharge plan depending on clinical progress.
--- NOTE | 2024-07-01 22:14 | P.PN ---
Date of Service: 07/01/24 Vital Signs Temp Pulse Resp BP Pulse Ox 97.9 F 78 17 180/74 H 94 07/01/24 20:00 07/01/24 20:00 07/01/24 20:00 07/01/24 20:00 07/01/24 20:00 Medications Acetaminophen (Acetaminophen 500 Mg Tab) 500 mg PO Q4HP PRN PRN Reason: Pain scale 5-7 (Moderate) Last Admin: 07/01/24 14:04 Dose: 500 mg Albuterol Sulfate (Albuterol 2.5 Mg/3 Ml Neb Jessy) 2.5 mg NEB [id number] PRN PRN Reason: SHORTNESS OF BREATH Doxycycline Monohydrate (Doxycycline 100 Mg Cap) 100 mg PO BID SALLY; Protocol Last Admin: 07/01/24 21:04 Dose: 100 mg Furosemide (Furosemide 40 Mg/4 Ml Vial) 40 mg IV Q6H SALLY Last Admin: 07/01/24 21:04 Dose: 40 mg Glucagon (Glucagon 1 Mg/Vial) 1 mg IM 1X PRN PRN Reason: HYPOGLYCEMIA Heparin Sodium (Porcine) (Heparin 5000 Unit/Ml 1 Ml Vial) 5,000 unit SQ Q8HR SALLY Last Admin: 07/01/24 18:08 Dose: 5,000 unit Hydralazine HCl (Hydralazine Hcl 25 Mg Tablet) 75 mg PO TID SALLY Last Admin: 07/01/24 21:05 Dose: 75 mg Dextrose (Dextrose 10% Water Iv Soln.) 125 mls @ 0 mls/hr IV PRN PRN; Protocol PRN Reason: HYPOGLYCEMIA Ceftriaxone Sodium 1,000 mg/ (Sodium Chloride) 50 mls @ 100 mls/hr IVPB DAILY SALLY; Protocol Last Admin: 07/01/24 08:15 Dose: 50 mls Fluconazole (Diflucan 200 Mg/100 Ml Ivpb (Premix)) 100 mg in 50 mls @ 50 mls/hr IV Q24H SALLY; Protocol Last Admin: 07/01/24 12:01 Dose: 50 mls Insulin Human Regular (Insulin Regular (Human) 100 Unit/Ml) 0 unit SQ ACHS SALLY; Protocol Last Admin: 07/01/24 21:00 Dose: Not Given Melatonin (Melatonin 5 Mg Tablet) 10 mg PO BEDTIME PRN PRN PRN Reason: INSOMNIA Last Admin: 04/28/25 21:04 Dose: 10 mg Nebivolol (Nebivolol Hcl 5 Mg Tab) 10 mg PO DAILY [facility] Last Admin: 07/01/24 08:16 Dose: 10 mg Nystatin (Nystatin Pwdr [id number] Unit/Gm) 1 appl TOP BID [facility] Last Admin: 07/01/24 21:00 Dose: 1 appl Ondansetron HCl (Ondansetron 4 Mg/2 Ml Vial) 4 mg IV Q6HP PRN PRN Reason: NAUSEA / VOMITING Last Admin: 07/01/24 21:11 Dose: 4 mg Microbiology Results 06/25/24 20:06 Blood - Blood Aerobic Blood Culture - Final No growth in 5 days. 06/25/24 20:06 Blood - Blood Anaerobic Blood Culture - Final No growth in 5 days. 06/25/24 20:00 Blood - Blood Aerobic Blood Culture - Final No growth in 5 days. 06/25/24 20:00 Blood - Blood Anaerobic Blood Culture - Final No growth in 5 days. 06/25/24 21:54 Clean Catch Urine [place] Count - Final >100,000 CFU/ML. 06/25/24 21:54 Clean Catch Urine - Final Assessment/ Plan: Nephrology No dyspnea No chest pain No acute events overnight Limited IH/ ROS due to mental status Vitals, medications, blood work and imaging reviewed in the chart General: In no apparent distress, Cooperative HEENT: Atraumatic Neck: Supple Respiratory: Normal air movement, Diminished Cardiovascular: Regular rate/rhythm, Edema Gastrointestinal: Non-distended, Tenderness Musculoskeletal: No clubbing, No contractures, Tenderness Integumentary: No rashes, No cyanosis Neurological: Normal speech [place] light Blood work reviewed in the chart. Imagings Data: EXAMINATION: ONE VIEW CHEST XR CLINICAL INDICATION: ABDOMINAL DISTENTION TECHNIQUE: Frontal chest projection is submitted. Examination is limited by patient positioning and technique. COMPARISON: 06/02/2024 FINDINGS: Moderate airspace opacity right lower lung likely representing infiltrate/pneumonia. Mild pulmonary edema also present. The heart is moderately enlarged in size. No displaced fractures identified. IMPRESSION: Moderate airspace opacity right lower lung likely representing pneumonia. Underlying CHF pattern is also present. EXAMINATION: CT ABDOMEN AND PELVIS WITHOUT CONTRAST CLINICAL INDICATION: ABD PAIN TECHNIQUE: CT abdomen and pelvis was performed, without IV contrast, as per department protocol. Axial, sagittal and coronal reconstructions were obtained. One or more of the following dose reduction techniques were used: Automated exposure control, adjustment of the mA and kV according to the patient size, and iterative reconstruction. Unless otherwise specified, incidental findings do not require dedicated imaging follow-up. COMPARISON: 06/04/2024 FINDINGS: The lack of intravenous contrast limits the sensitivity of this exam for evaluation of solid visceral organs, vascular structures, and retroperitoneum. LOWER CHEST: Small bilateral pleural effusions with airspace opac ity/consolidation in both lung bases, greater on the left. Pneumonia is a possibility versus atelectasis. LIVER:Mild hepatomegaly with fatty liver. Cholecystectomy clips. SPLEEN: Normal size. No focal lesion. PANCREAS: No mass, ductal dilation, or sid-pancreatic fluid. ADRENALS: 18 mm left adrenal mass is present, probably an adenoma. Normal right adrenal gland. KIDNEYS AND URETERS: Small calcifications inferior right kidney without hydronephrosis. No left renal stone or hydronephrosis. URINARY BLADDER: Normal contour. GASTROINTESTINAL TRACT: No evidence of bowel obstruction, significant free fluid, free air or abscess. APPENDIX: Normal appendix. LYMPH NODES: No lymphadenopathy. MUSCULOSKELETAL: Hardware is present proximal left femur. ADDITIONAL FINDINGS: Mild free fluid is seen in the abdomen and pelvis, particularly notable on the left flank. Generalized anasarca noted. IMPRESSION: No definitive acute process seen in the abdomen or pelvis. Generalized fluid retention pattern is present. Airspace opacity with pleural fluid in both lung bases may represent atelectasis or pneumonia. LEFT VENTRICULAR WALL MOTION: DOPPLER/COLOR FLOW: COMMENTS: 1. LIMITED IMAGES OBTAINED 2. OVERALL LEFT VENTRICULAR SYSTOLIC FUNCTION LOOKS NORMAL, EJECTION FRACTION 60-65%, NORMAL WALL MOTION Conclusions/Impression: Stage I RAYNE may be CRS complicated by relative hypotension on admission CKD IV with Proteinuria -No NSAIDs -Continue Lasix 40mg IV q6h Hyperkalemia -Lokelma prn -Continue Lasix HTN with CKD/ CHF -Continue Nebivolol -Continue Hydralazine Diastolic CHF, A/C -Continue Lasix -Low sodium diet DM II with CKD -RISS Hypoalbuminemia -Albumin 25mg IV as needed Anemia in chronic illness Thrombocytopenia -Monitor CBC -Retacrit prn Acute Cystitis with Hematuria -Continue Abx Hospitalist note reviewed Case reviewed with Dr. King
[2024-07-02 08:04] LABS: Anion Gap 9.5 mEq/L (5.0-15.0); Potassium 3.5 mEq/L (3.5-5.1)
[2024-07-02] MEDS: HYDRALAZINE HCL 25 MG TABLET PO SCH (14:00)
--- NOTE | 2024-07-02 15:03 | P.PN ---
Subjective Date of Service: 07/02/24 Chief Complaint: Abdominal pain Subjective: c/o pain and shortness of breath, not able to describe more. No nausea or vomiting. Looks comfortable in the bed. Objective: General appearance: Alert and comfortable CVS: Normal S1 and S2 Lungs: Clear to auscultation bilaterally Abdomen: Soft, bowel sounds present, no tenderness Extremities: mild b/l lower extremity edema Physical Examination - Vital Signs Temperature: 98.9 F Blood Pressure: 186/75 Pulse: 77 Respirations: 16 Pulse Ox (%): 96 Assessment And Plan - Plan 1. Abdominal pain: resolved - CT abdominal pelvis showed pleural effusion, pneumonia, anasarca, fatty liver with hepatomegaly. 2. Pneumonia: Continue antibiotics. 3. Acute diastolic CHF: Continue Lasix, monitor closely. - Echo limited study, EF 60 to 65%. - Still volume overloaded 4. COPD (on home O2): Continue inhalers/nebs. 5 Acute on chronic kidney disease, CKD 3B: Monitor renal function closely with diuretics, nephrology consult on board 6. Hyperkalemia: Given a dose of Kayexalate, and Lokelma, K improved, nephrology consult on board. 7. Hypertension: BP high, increase hydralazine and beta-roddy, ARB on hold 8. Type 2 diabetes mellitus: Monitor sugars closely 9. High cholesterol 10. Chronic anemia, on and off thrombocytopenia: Monitor closely. 11. Major depressive disorder 12. Obstructive sleep apnea 13. Irritable bowel syndrome 14. Cognitive impairment 15. Encephalopathy: Chest x-ray pneumonia versus CHF, CT head negative, probably metabolic encephalopathy from renal failure - Encephalopathy resolved, monitor closely. Plan discussed with patient and nursing staff and case management team. 79-year-old patient admitted with abdominal pain, probably related to volume overload, pain improved. She has pneumonia, acute CHF, and acute renal failure, nephrology is on board, continue antibiotics and IV diuretics. She had some encephalopathy yesterday, imaging negative, probably metabolic encephalopathy from renal failure and infection, clinically better, discharge plan depending on clinical progress.
[2024-07-02] MEDS: NEBIVOLOL HCL 20 MG TABLET PO ONE (15:40)
[2024-07-02] MEDS ORDERED: NEBIVOLOL HCL 20 MG TABLET PO SCH (16:00)
--- NOTE | 2024-07-02 20:56 | P.PN ---
Date of Service: 07/02/24 Vital Signs Temp Pulse Resp BP Pulse Ox 99.1 F 71 16 187/77 H 96 07/02/24 16:00 07/02/24 16:00 07/02/24 16:00 07/02/24 16:00 07/02/24 16:00 Medications Acetaminophen (Acetaminophen 500 Mg Tab) 500 mg PO Q4HP PRN PRN Reason: Pain scale 5-7 (Moderate) Last Admin: 07/02/24 17:00 Dose: 500 mg Albuterol Sulfate (Albuterol 2.5 Mg/3 Ml Neb Jessy) 2.5 mg NEB [id number] PRN PRN Reason: SHORTNESS OF BREATH Doxycycline Monohydrate (Doxycycline 100 Mg Cap) 100 mg PO BID SALLY; Protocol Last Admin: 07/02/24 20:40 Dose: 100 mg Furosemide (Furosemide 40 Mg/4 Ml Vial) 40 mg IV Q6H SALLY Last Admin: 07/02/24 20:40 Dose: 40 mg Glucagon (Glucagon 1 Mg/Vial) 1 mg IM 1X PRN PRN Reason: HYPOGLYCEMIA Heparin Sodium (Porcine) (Heparin 5000 Unit/Ml 1 Ml Vial) 5,000 unit SQ Q8HR SALLY Last Admin: 07/02/24 17:00 Dose: 5,000 unit Hydralazine HCl (Hydralazine Hcl 25 Mg Tablet) 100 mg PO TID SALLY Last Admin: 07/02/24 20:40 Dose: 100 mg Dextrose (Dextrose 10% Water Iv Soln.) 125 mls @ 0 mls/hr IV PRN PRN; Protocol PRN Reason: HYPOGLYCEMIA Ceftriaxone Sodium 1,000 mg/ (Sodium Chloride) 50 mls @ 100 mls/hr IVPB DAILY SALLY; Protocol Last Admin: 07/02/24 08:35 Dose: 50 mls Fluconazole (Diflucan 200 Mg/100 Ml Ivpb (Premix)) 100 mg in 50 mls @ 50 mls/hr IV Q24H SALLY; Protocol Last Admin: 07/02/24 14:00 Dose: 50 mls Insulin Human Regular (Insulin Regular (Human) 100 Unit/Ml) 0 unit SQ ACHS SALLY; Protocol Last Admin: 07/02/24 19:59 Dose: Not Given Melatonin (Melatonin 5 Mg Tablet) 10 mg PO BEDTIME PRN PRN PRN Reason: INSOMNIA Last Admin: 04/28/25 21:04 Dose: 10 mg Nebivolol (Nebivolol Hcl 20 Mg Tablet) 20 mg PO DAILY SALLY Nystatin (Nystatin Pwdr 345472 Unit/Gm) 1 appl TOP BID SALLY Last Admin: 07/02/24 20:40 Dose: 1 appl Ondansetron HCl (Ondansetron 4 Mg/2 Ml Vial) 4 mg IV Q6HP PRN PRN Reason: NAUSEA / VOMITING Last Admin: 07/01/24 21:11 Dose: 4 mg Microbiology Results 06/25/24 20:06 Blood - Blood Aerobic Blood Culture - Final No growth in 5 days. 06/25/24 20:06 Blood - Blood Anaerobic Blood Culture - Final No growth in 5 days. 06/25/24 20:00 Blood - Blood Aerobic Blood Culture - Final No growth in 5 days. 06/25/24 20:00 Blood - Blood Anaerobic Blood Culture - Final No growth in 5 days. 06/25/24 21:54 Clean Catch Urine [place] Count - Final >100,000 CFU/ML. 06/25/24 21:54 Clean Catch Urine - Final Assessment/ Plan: Nephrology No dyspnea No chest pain No acute events overnight Limited IH/ ROS due to mental status Vitals, medications, blood work and imaging reviewed in the chart General: In no apparent distress, Cooperative HEENT: Atraumatic Neck: Supple Respiratory: Normal air movement, Diminished Cardiovascular: Regular rate/rhythm, Edema Gastrointestinal: Non-distended, Tenderness Musculoskeletal: No clubbing, No contractures, Tenderness Integumentary: No rashes, No cyanosis Neurological: Normal speech Harrison light Blood work reviewed in the chart. Imagings Data: EXAMINATION: ONE VIEW CHEST XR CLINICAL INDICATION: ABDOMINAL DISTENTION TECHNIQUE: Frontal chest projection is submitted. Examination is limited by patient positioning and technique. COMPARISON: 06/02/2024 FINDINGS: Moderate airspace opacity right lower lung likely representing infiltrate/pneumonia. Mild pulmonary edema also present. The heart is moderately enlarged in size. No displaced fractures identified. IMPRESSION: Moderate airspace opacity right lower lung likely representing pneumonia. Underlying CHF pattern is also present. EXAMINATION: CT ABDOMEN AND PELVIS WITHOUT CONTRAST CLINICAL INDICATION: ABD PAIN TECHNIQUE: CT abdomen and pelvis was performed, without IV contrast, as per department protocol. Axial, sagittal and coronal reconstructions were obtained. One or more of the following dose reduction techniques were used: Automated exposure control, adjustment of the mA and kV according to the patient size, and iterative reconstruction. Unless otherwise specified, incidental findings do not require dedicated imaging follow-up. COMPARISON: 06/04/2024 FINDINGS: The lack of intravenous contrast limits the sensitivity of this exam for tj luation of solid visceral organs, vascular structures, and retroperitoneum. LOWER CHEST: Small bilateral pleural effusions with airspace opacity/consolidation in both lung bases, greater on the left. Pneumonia is a possibility versus atelectasis. LIVER:Mild hepatomegaly with fatty liver. Cholecystectomy clips. SPLEEN: Normal size. No focal lesion. PANCREAS: No mass, ductal dilation, or sid-pancreatic fluid. ADRENALS: 18 mm left adrenal mass is present, probably an adenoma. Normal right adrenal gland. KIDNEYS AND URETERS: Small calcifications inferior right kidney without hydronephrosis. No left renal stone or hydronephrosis. URINARY BLADDER: Normal contour. GASTROINTESTINAL TRACT: No evidence of bowel obstruction, significant free fluid, free air or abscess. APPENDIX: Normal appendix. LYMPH NODES: No lymphadenopathy. MUSCULOSKELETAL: Hardware is present proximal left femur. ADDITIONAL FINDINGS: Mild free fluid is seen in the abdomen and pelvis, particularly notable on the left flank. Generalized anasarca noted. IMPRESSION: No definitive acute process seen in the abdomen or pelvis. Generalized fluid retention pattern is present. Airspace opacity with pleural fluid in both lung bases may represent atelectasis or pneumonia. LEFT VENTRICULAR WALL MOTION: DOPPLER/COLOR FLOW: COMMENTS: 1. LIMITED IMAGES OBTAINED 2. OVERALL LEFT VENTRICULAR SYSTOLIC FUNCTION LOOKS NORMAL, EJECTION FRACTION 60-65%, NORMAL WALL MOTION Conclusions/Impression: Stage I RAYNE may be CRS complicated by relative hypotension on admission CKD IV with Proteinuria -No NSAIDs -Continue Lasix 40mg IV q6h Hypokalemia -Replete potassium as ordered HTN with CKD/ CHF -Continue Nebivolol -Continue Hydralazine -Restart Losartan BID Diastolic CHF, A/C -Continue Lasix -Low sodium diet DM II with CKD -RISS Hypoalbuminemia -Albumin 25mg IV as needed Anemia in chronic illness Thrombocytopenia -Monitor CBC -Retacrit prn Acute Cystitis with Hematuria -Continue Abx Hospitalist note reviewed Case reviewed with Dr. King
[2024-07-02] MEDS: LOSARTAN POTASSIUM 50 MG TABLET PO SCH (23:13)
[2024-07-03 05:28] LABS: Anion Gap 9.9 mEq/L (5.0-15.0); Potassium 2.9 mEq/L (3.5-5.1)
[2024-07-03] MEDS: POTASSIUM 25 MEQ EFFERV TAB PO ONE (06:19)
[2024-07-03] MEDS: POTASSIUM CL SA 10 MEQ TAB PO ONE ×2 (06:19→18:11)
[2024-07-03] MEDS: NEBIVOLOL HCL 20 MG TABLET PO SCH (09:25)
[2024-07-03] MEDS: DOXAZOSIN 2 MG TAB PO SCH (11:53)
--- NOTE | 2024-07-03 15:34 | P.PN ---
Subjective Date of Service: 07/03/24 Chief Complaint: Abdominal pain Subjective: c/o pain and shortness of breath, not able to describe more. No nausea or vomiting. Looks comfortable in the bed. Objective: General appearance: Alert and comfortable CVS: Normal S1 and S2 Lungs: Clear to auscultation bilaterally Abdomen: Soft, bowel sounds present, no tenderness Extremities: mild b/l lower extremity edema, no improvement Physical Examination - Vital Signs Temperature: 99.5 F Blood Pressure: 182/82 Pulse: 76 Respirations: 17 Pulse Ox (%): 97 Assessment And Plan - Plan 1. Abdominal pain: resolved - CT abdominal pelvis showed pleural effusion, pneumonia, anasarca, fatty liver with hepatomegaly. 2. Pneumonia: Continue antibiotics. 3. Acute diastolic CHF: Continue Lasix, monitor closely. - Echo limited study, EF 60 to 65%. - Still volume overloaded, will request cardiology to see 4. COPD (on home O2): Continue inhalers/nebs. 5 Acute on chronic kidney disease, CKD 3B: Monitor renal function closely with diuretics, nephrology consult on board 6. Hyperkalemia: Given a dose of Kayexalate, and Lokelma, K improved, nephrology consult on board. now hypokalemia, replacing 7. Hypertension: BP high, BP meds being adjsuted 8. Type 2 diabetes mellitus: Monitor sugars closely 9. High cholesterol 10. Chronic anemia, on and off thrombocytopenia: Monitor closely. 11. Major depressive disorder 12. Obstructive sleep apnea 13. Irritable bowel syndrome 14. Cognitive impairment 15. Encephalopathy: Chest x-ray pneumonia versus CHF, CT head negative, probably metabolic encephalopathy from renal failure - Encephalopathy resolved, monitor closely. Plan discussed with patient and nursing staff and case management team. 79-year-old patient admitted with abdominal pain, probably related to volume overload, pain improved. She has pneumonia, acute CHF, and acute renal failure, nephrology is on board, continue antibiotics and IV diuretics. She had some encephalopathy yesterday, imaging negative, probably metabolic encephalopathy from renal failure and infection, clinically better, discharge plan depending on clinical progress.
[2024-07-03 17:07] LABS: Anion Gap 7.9 mEq/L (5.0-15.0); Potassium 2.9 mEq/L (3.5-5.1)
[2024-07-03] MEDS: KCL 20 MEQ/100 mL IVPB 20 MEQ/100 ML BAG IV SCH ×2 (17:41→18:10)
[2024-07-03] MEDS: carvediloL 25 MG TAB PO SCH (17:44)
[2024-07-03] MEDS: NA CHLORIDE 0.9% 500 ML IV SCH (18:10)
--- NOTE | 2024-07-03 21:14 | P.PN ---
Date of Service: 07/03/24 Vital Signs Temp Pulse Resp BP Pulse Ox 98.3 F 67 17 186/93 H 98 07/03/24 16:00 07/03/24 20:53 07/03/24 16:00 07/03/24 20:53 07/03/24 16:00 Medications Acetaminophen (Acetaminophen 500 Mg Tab) 500 mg PO Q4HP PRN PRN Reason: Pain scale 5-7 (Moderate) Last Admin: 07/02/24 17:00 Dose: 500 mg Albuterol Sulfate (Albuterol 2.5 Mg/3 Ml Neb Jessy) 2.5 mg NEB [id number] PRN PRN Reason: SHORTNESS OF BREATH Carvedilol (Carvedilol 25 Mg Tab) 25 mg PO BID 6AM 6PM [facility] Last Admin: 07/03/24 17:44 Dose: 25 mg Doxazosin Mesylate (Doxazosin 2 Mg Tab) 2 mg PO BID [facility] Last Admin: 07/03/24 20:52 Dose: 2 mg Doxycycline Monohydrate (Doxycycline 100 Mg Cap) 100 mg PO BID [facility]; Protocol Last Admin: 07/03/24 20:53 Dose: 100 mg Furosemide (Furosemide 40 Mg/4 Ml Vial) 40 mg IV Q6H SALLY Last Admin: 07/03/24 20:53 Dose: 40 mg Glucagon (Glucagon 1 Mg/Vial) 1 mg IM 1X PRN PRN Reason: HYPOGLYCEMIA Heparin Sodium (Porcine) (Heparin 5000 Unit/Ml 1 Ml Vial) 5,000 unit SQ Q8HR [facility] Last Admin: 07/03/24 17:44 Dose: 5,000 unit Hydralazine HCl (Hydralazine Hcl 25 Mg Tablet) 100 mg PO TID SALLY Last Admin: 07/03/24 20:52 Dose: 100 mg Dextrose (Dextrose 10% Water Iv Soln.) 125 mls @ 0 mls/hr IV PRN PRN; Protocol PRN Reason: HYPOGLYCEMIA Ceftriaxone Sodium 1,000 mg/ (Sodium Chloride) 50 mls @ 100 mls/hr IVPB DAILY [facility]; Protocol Last Admin: 07/03/24 08:41 Dose: 50 mls Fluconazole (Diflucan 200 Mg/100 Ml Ivpb (Premix)) 100 mg in 50 mls @ 50 mls/hr IV Q24H SALLY; Protocol Last Admin: 07/03/24 13:55 Dose: 50 mls Sodium Chloride (Sodium Chloride) 500 mls @ 50 mls/hr IV .Q10H [facility] Last Admin: 07/03/24 18:10 Dose: 500 mls Insulin Human Regular (Insulin Regular (Human) 100 Unit/Ml) 0 unit SQ ACHS [facility]; Protocol Last Admin: 07/03/24 21:00 Dose: Not Given Losartan Potassium (Losartan Potassium 50 Mg Tablet) 50 mg PO BID [facility] Last Admin: 07/03/24 20:52 Dose: 50 mg Melatonin (Melatonin 5 Mg Tablet) 10 mg PO BEDTIME PRN PRN PRN Reason: INSOMNIA Last Admin: 07/01/24 21:04 Dose: 10 mg Nystatin (Nystatin Pwdr 299254 Unit/Gm) 1 appl TOP BID [facility] Last Admin: 07/03/24 21:00 Dose: 1 appl Ondansetron HCl (Ondansetron 4 Mg/2 Ml Vial) 4 mg IV Q6HP PRN PRN Reason: NAUSEA / VOMITING Last Admin: 07/03/24 06:27 Dose: 4 mg Microbiology Results 06/25/24 20:06 Blood - Blood Aerobic Blood Culture - Final No growth in 5 days. 06/25/24 20:06 Blood - Blood Anaerobic Blood Culture - Final No growth in 5 days. 06/25/24 20:00 Blood - Blood Aerobic Blood Culture - Final No growth in 5 days. 06/25/24 20:00 Blood - Blood Anaerobic Blood Culture - Final No growth in 5 days. 06/25/24 21:54 Clean Catch Urine [place] Count - Final >100,000 CFU/ML. 06/25/24 21:54 Clean Catch Urine - Final Assessment/ Plan: Nephrology No dyspnea No chest pain No acute events overnight Limited IH/ ROS due to mental status Vitals, medications, blood work and imaging reviewed in the chart General: In no apparent distress, Cooperative HEENT: Atraumatic Neck: Supple Respiratory: Normal air movement, Diminished Cardiovascular: Regular rate/rhythm, Edema Gastrointestinal: Non-distended, Tenderness Musculoskeletal: No clubbing, No contractures, Tenderness Integumentary: No rashes, No cyanosis Neurological: Normal speech Harrison light Blood work reviewed in the chart. Imagings Data: EXAMINATION: ONE VIEW CHEST XR CLINICAL INDICATION: ABDOMINAL DISTENTION TECHNIQUE: Frontal chest projection is submitted. Examination is limited by patient positioning and technique. COMPARISON: 06/02/2024 FINDINGS: Moderate airspace opacity right lower lung likely representing infiltrate/pneumonia. Mild pulmonary edema also present. The heart is moderately enlarged in size. No displaced fractures identified. IMPRESSION: Moderate airspace opacity right lower lung likely representing pneumonia. Underlying CHF pattern is also present. EXAMINATION: CT ABDOMEN AND PELVIS WITHOUT CONTRAST CLINICAL INDICATION: ABD PAIN TECHNIQUE: CT abdomen and pelvis was performed, without IV contrast, as per department protocol. Axial, sagittal and coronal reconstructions were obtained. One or more of the following dose reduction techniques were used: Automated exposure control, adjustment of the mA and kV according to the patient size, and iterative reconstruction. Unless otherwise specified, incidental findings do not require dedicated imaging follow-up. COMPARISON: 06/04/2024 FINDINGS: The lack of intravenous contrast limits the sensitivity of this exam for evaluation of solid visceral organs, vascular structures, and retroperitoneum. LOWER CHEST: Small bilateral pleural effusions with airspace opacity/consolidation in both lung bases, greater on the left. Pneumonia is a possibility versus atelectasis. LIVER:Mild hepatomegaly with fatty liver. Cholecystectomy clips. SPLEEN: Normal size. No focal lesion. PANCREAS: No mass, ductal dilation, or sid-pancreatic fluid. ADRENALS: 18 mm left adrenal mass is present, probably an adenoma. Normal right adrenal gland. KIDNEYS AND URETERS: Small calcifications inferior right kidney without hydronephrosis. No left renal stone or hydronephrosis. URINARY BLADDER: Normal contour. GASTROINTESTINAL TRACT: No evidence of bowel obstruction, significant free fluid, free air or abscess. APPENDIX: Normal appendix. LYMPH NODES: No lymphadenopathy. MUSCULOSKELETAL: Hardware is present proximal left femur. ADDITIONAL FINDINGS: Mild free fluid is seen in the abdomen and pelvis, particularly notable on the left flank. Generalized anasarca noted. IMPRESSION: No definitive acute process seen in the abdomen or pelvis. Generalized fluid retention pattern is present. Airspace opacity with pleural fluid in both lung bases may represent atelectasis or pneumonia. LEFT VENTRICULAR WALL MOTION: DOPPLER/COLOR FLOW: COMMENTS: 1. LIMITED IMAGES OBTAINED 2. OVERALL LEFT VENTRICULAR SYSTOLIC FUNCTION LOOKS NORMAL, EJECTION FRACTION 60-65%, NORMAL WALL MOTION Conclusions/Impression: Stage I RAYNE may be CRS complicated by relative hypotension on admission CKD IV with Proteinuria -No NSAIDs -Continue Lasix 40mg IV q6h Hypokalemia -Replete potassium as ordered HTN with CKD/ CHF -Continue Nebivolol -Continue Hydralazine -Continue Losartan BID Diastolic CHF, A/C -Continue Lasix -Low sodium diet DM II with CKD -RISS Hypoalbuminemia -Albumin 25mg IV as needed Anemia in chronic illness Thrombocytopenia -Monitor CBC -Retacrit prn Acute Cystitis with Hematuria -Continue Abx Hospitalist note reviewed Case reviewed with hospitalist team
[2024-07-04 04:51] LABS: Absolute Lymphocytes (CBC) 0.6 K/uL (0.7-4.9); Absolute Monocytes 0.5 K/uL (0.1-1.3); Absolute Neutrophil 7.8 K/uL (1.8-8.0); Basophils % 0.4 % (0-1.3); Eosinophils % 0.3 % (0-4.4); Hematocrit 27.6 % (36.0-45.0); Hemoglobin 9.1 g/dL (12.0-15.0); Lymphocytes % 7.1 % (15.3-44.8); MCH 30.6 pg (27.0-35.0); MCHC 32.7 g/dL (32.0-36.0); MCV 93.6 fL (80-100); MPV 10.8 fL (7.6-11.3); Monocytes % 5.4 % (3.3-12.3); Platelets 144 thou/uL (152-406); RBC Red Blood Cell Count 2.95 M/uL (3.86-4.86); Red Cell Distribution Width 17.6 % (12.1-15.2)
[2024-07-04 04:54] LABS: Neutrophils % 86.8 % (41.7-73.7)
[2024-07-04 05:07] LABS: Anion Gap 10.3 mEq/L (5.0-15.0); Magnesium 1.5 mg/dL (1.6-2.4); Potassium 3.3 mEq/L (3.5-5.1)
[2024-07-04] MEDS: DOXAZOSIN 4 MG TAB PO SCH (11:10)
[2024-07-04] MEDS: POTASSIUM CL SA 10 MEQ TAB PO ONE (11:10)
--- NOTE | 2024-07-04 12:28 | P.CNS ---
Date of Consult: 07/04/24 Chief Complaint: Abdominal pain History of Present Illness: Patient with PMH of combined heart failure, CKD, HTN, Dementia, presented with abdominal, volume overload, has been getting diuresis during hospital stay, patient is hard to communicate with, most likely she got dementia as she says her mom is taking care of her, denies chest pain, report abdominal pain. Allergies No Known Allergies Allergy (Unverified 06/26/24 02:35) Home medications list reviewed: Yes Home Medications: Allopurinol 300 mg PO DAILY AT SUPPER 09/17/23 Buspirone HCl [Buspar] 10 mg PO TID 09/17/23 Cetirizine HCl [Zyrtec*] 10 mg PO DAILY 09/17/23 Cholecalciferol (Vitamin D3) [Vitamin D3] 1,000 units PO NOON 09/17/23 Doxazosin Mesylate 4 mg PO BID 09/17/23 Escitalopram [Lexapro*] 10 mg PO DAILY 09/17/23 Gabapentin [Neurontin*] 300 mg PO BID 09/17/23 Hydralazine HCl 75 mg PO TID 09/17/23 Insulin Glargine,Hum.rec.anlog [Lantus] 15 units SQ DAILY 09/17/23 Magnesium Oxide [Magnesium] 400 mg PO DAILY 09/17/23 Montelukast [Singulair*] 10 mg PO DAILY 09/17/23 Losartan Potassium [Cozaar*] 50 mg PO BID 11/22/23 cloNIDine HCL [Catapres*] 0.1 mg PO BID PRN 30 Days #60 tab 11/22/23 Acetaminophen [Tylenol] 650 mg PO Q6HP PRN 05/20/24 Famotidine 20 mg PO DAILY 05/20/24 Insulin Lispro See Protocol SQ ACHS 05/20/24 Multivitamin [Multiple Vitamins] 1 each PO DAILY 05/20/24 Docusate [Colace Cap*] 200 mg PO DAILY PRN #30 cap 05/24/24 Ascorbic Acid [Vitamin C] 500 mg PO BID 06/03/24 Calcium Carbonate [Calcium] 500 mg PO DAILY 06/03/24 Nebivolol HCl [Bystolic] 10 mg PO DAILY 06/03/24 Protein Supplement [Promod] 30 ml PO BID 06/03/24 Zinc Sulfate [Zinc Sulfate*] 220 mg PO DAILY 06/03/24 Acetaminophen with Codeine [Acetaminophen-Cod #3 Tablet] 1 tab PO Q6HP PRN 06/26/24 Apixaban [Eliquis *] 2.5 mg PO BID 06/26/24 Aspirin [Aspirin EC 81 MG] 81 mg PO DAILY 06/26/24 Ibuprofen 400 mg PO Q8HP PRN 06/26/24 - Past Medical/Surgical History Diabetic: Yes -: HTN -: HLD -: COPD-with home O2 -: DM II -: Diastolic CHF -: IBS -: depression -: osteoarthritis -: Left hip fracture -: Dysphagia -: tonsilectomy -: R leg plates/pin -: dilation and curettage -: Lefthip ORIF Psychosocial/ Personal History: patient lives at [place] - Family History Mother Medical History: Lung disease Father Medical History: Diabetes - Social History Smoking Status: Unknown if ever smoked Alcohol use: No CD- Drugs: No Caffeine use: No Place of Residence: [facility] Review of Systems 10-point ROS is otherwise unremarkable Physical Examination Temp Pulse Resp BP Pulse Ox 98.9 F 72 18 155/72 H 97 07/04/24 08:00 07/04/24 09:13 07/04/24 08:00 07/04/24 11:10 07/04/24 08:00 General: Alert, In no apparent distress HEENT: Atraumatic, PERRLA, Mucous membr. moist/pink, EOMI, Sclerae nonicteric Neck: Supple, 2+ carotid pulse no bruit, No LAD, Without JVD or thyroid abnormality Respiratory: Clear to auscultation bilaterally, Normal air movement Cardiovascular: Regular rate/rhythm, Normal S1 S2 Gastrointestinal: Normal bowel sounds, No tenderness Musculoskeletal: No tenderness Integumentary: No rashes Neurological: Normal gait, Normal speech, Normal tone, Normal affect Lymphatics: No axilla or inguinal lymphadenopathy - Problems (1) Acute on chronic diastolic heart failure Current Visit: Yes Status: Acute Plan: Continue Lasix 40 mg IV Q 6 hours continue Coreg 25 mg po BID Continue Losartan 50 mg po BID Consider adding Hydralazine 25 mg po BID and Imdur 30 mg daily continue to monitor input and output Echo poor images but LV function looks normal (2) HTN (hypertension) Current Visit: Yes Status: Acute Plan: adjust medications as above. (3) CKD (chronic kidney disease) Current Visit: Yes Status: Acute Plan: continue to monitor kidney function.
[2024-07-04] MEDS: MAGNESIUM 50% 3 GM in NA CHLORIDE 0.9% 100 ML IV ONE (13:19)
--- NOTE | 2024-07-04 16:03 | P.PN ---
Subjective Date of Service: 07/04/24 Chief Complaint: Abdominal pain Subjective: c/o pain and shortness of breath, not able to describe more. No nausea or vomiting. Looks comfortable in the bed. poor historial Objective: General appearance: Alert and comfortable CVS: Normal S1 and S2 Lungs: Clear to auscultation bilaterally Abdomen: Soft, bowel sounds present, no tenderness Extremities: lower extremity edema improving Physical Examination - Vital Signs Temperature: 99.1 F Blood Pressure: 177/84 Pulse: 75 Respirations: 18 Pulse Ox (%): 95 Assessment And Plan - Plan 1. Abdominal pain: resolved - CT abdominal pelvis showed pleural effusion, pneumonia, anasarca, fatty liver with hepatomegaly. 2. Pneumonia: done with antibiotics. 3. Acute diastolic CHF: Continue Lasix, monitor closely. - Echo limited study, EF 60 to 65%. -Cardiology consulted, volume status improving 4. COPD (on home O2): Continue inhalers/nebs. 5 Acute on chronic kidney disease, CKD 3B: Monitor renal function closely with diuretics, nephrology consult on board 6. Hyperkalemia: Given a dose of Kayexalate, and Lokelma, K improved, nephrology consult on board. now hypokalemia, replacing 7. Hypertension: BP high, BP meds being adjsuted 8. Type 2 diabetes mellitus: Monitor sugars closely 9. High cholesterol 10. Chronic anemia, on and off thrombocytopenia: Monitor closely. 11. Major depressive disorder 12. Obstructive sleep apnea 13. Irritable bowel syndrome 14. Cognitive impairment 15. Encephalopathy: Chest x-ray pneumonia versus CHF, CT head negative, probably metabolic encephalopathy from renal failure - Encephalopathy resolved, monitor closely. Plan discussed with nursing staff and case management team. 79-year-old patient admitted with abdominal pain, probably related to volume overload, pain improved. She has pneumonia, acute CHF, and acute renal failure, nephrology is on board, continue IV diuretics, done with ABX. Discharge soon once volume status better.
[2024-07-04] MEDS: AMLODIPINE 5 MG TAB PO SCH (16:47)
--- NOTE | 2024-07-04 21:01 | P.PN ---
Date of Service: 07/04/24 Vital Signs Temp Pulse Resp BP Pulse Ox 98.6 F 65 16 165/67 H 95 07/04/24 20:00 07/04/24 20:20 07/04/24 20:00 07/04/24 20:20 07/04/24 20:00 Medications Acetaminophen (Acetaminophen 500 Mg Tab) 500 mg PO Q4HP PRN PRN Reason: Pain scale 5-7 (Moderate) Last Admin: 07/04/24 12:14 Dose: 500 mg Albuterol Sulfate (Albuterol 2.5 Mg/3 Ml Neb Jessy) 2.5 mg NEB [id number] PRN PRN Reason: SHORTNESS OF BREATH Amlodipine Besylate (Amlodipine 5 Mg Tab) 5 mg PO DAILY [facility] Last Admin: 07/04/24 16:47 Dose: 5 mg Carvedilol (Carvedilol 25 Mg Tab) 25 mg PO BID 6AM 6PM [facility] Last Admin: 07/04/24 18:27 Dose: 25 mg Doxazosin Mesylate (Doxazosin 4 Mg Tab) 4 mg PO BID [facility] Last Admin: 07/04/24 20:20 Dose: 4 mg Furosemide (Furosemide 40 Mg/4 Ml Vial) 40 mg IV Q6H [facility] Last Admin: 07/04/24 20:20 Dose: 40 mg Glucagon (Glucagon 1 Mg/Vial) 1 mg IM 1X PRN PRN Reason: HYPOGLYCEMIA Heparin Sodium (Porcine) (Heparin 5000 Unit/Ml 1 Ml Vial) 5,000 unit SQ Q8HR [facility] Last Admin: 07/04/24 16:48 Dose: 5,000 unit Hydralazine HCl (Hydralazine Hcl 25 Mg Tablet) 100 mg PO TID [facility] Last Admin: 07/04/24 20:20 Dose: 100 mg Dextrose (Dextrose 10% Water Iv Soln.) 125 mls @ 0 mls/hr IV PRN PRN; Protocol PRN Reason: HYPOGLYCEMIA Insulin Human Regular (Insulin Regular (Human) 100 Unit/Ml) 0 unit SQ ACHS [facility]; Protocol Last Admin: 07/04/24 16:47 Dose: 3 unit Losartan Potassium (Losartan Potassium 50 Mg Tablet) 50 mg PO BID [facility] Last Admin: 07/04/24 20:20 Dose: 50 mg Melatonin (Melatonin 5 Mg Tablet) 10 mg PO BEDTIME PRN PRN PRN Reason: INSOMNIA Last Admin: 07/01/24 21:04 Dose: 10 mg Nystatin (Nystatin Pwdr 312600 Unit/Gm) 1 appl TOP BID SALLY Last Admin: 07/04/24 20:24 Dose: 1 appl Ondansetron HCl (Ondansetron 4 Mg/2 Ml Vial) 4 mg IV Q6HP PRN PRN Reason: NAUSEA / VOMITING Last Admin: 07/03/24 21:53 Dose: 4 mg Microbiology Results 06/25/24 20:06 Blood - Blood Aerobic Blood Culture - Final No growth in 5 days. 06/25/24 20:06 Blood - Blood Anaerobic Blood Culture - Final No growth in 5 days. 06/25/24 20:00 Blood - Blood Aerobic Blood Culture - Final No growth in 5 days. 06/25/24 20:00 Blood - Blood Anaerobic Blood Culture - Final No growth in 5 days. 06/25/24 21:54 Clean Catch Urine [place] Count - Final >100,000 CFU/ML. 06/25/24 21:54 Clean Catch Urine - Final Assessment/ Plan: Nephrology No dyspnea No chest pain No acute events overnight Limited IH/ ROS due to mental status Vitals, medications, blood work and imaging reviewed in the chart General: In no apparent distress, Cooperative HEENT: Atraumatic Neck: Supple Respiratory: Normal air movement, Diminished Cardiovascular: Regular rate/rhythm, Edema Gastrointestinal: Non-distended, Tenderness Musculoskeletal: No clubbing, No contractures, Tenderness Integumentary: No rashes, No cyanosis Neurological: Normal speech Harrison light Blood work reviewed in the chart. Imagings Data: EXAMINATION: ONE VIEW CHEST XR CLINICAL INDICATION: ABDOMINAL DISTENTION TECHNIQUE: Frontal chest projection is submitted. Examination is limited by patient positioning and technique. COMPARISON: 06/02/2024 FINDINGS: Moderate airspace opacity right lower lung likely representing infil trate/pneumonia. Mild pulmonary edema also present. The heart is moderately enlarged in size. No displaced fractures identified. IMPRESSION: Moderate airspace opacity right lower lung likely representing pneumonia. Underlying CHF pattern is also present. EXAMINATION: CT ABDOMEN AND PELVIS WITHOUT CONTRAST CLINICAL INDICATION: ABD PAIN TECHNIQUE: CT abdomen and pelvis was performed, without IV contrast, as per department protocol. Axial, sagittal and coronal reconstructions were obtained. One or more of the following dose reduction techniques were used: Automated exposure control, adjustment of the mA and kV according to the patient size, and iterative reconstruction. Unless otherwise specified, incidental findings do not require dedicated imaging follow-up. COMPARISON: 06/04/2024 FINDINGS: The lack of intravenous contrast limits the sensitivity of this exam for evaluation of solid visceral organs, vascular structures, and retroperitoneum. LOWER CHEST: Small bilateral pleural effusions with airspace opacity/consolidation in both lung bases, greater on the left. Pneumonia is a possibility versus atelectasis. LIVER:Mild hepatomegaly with fatty liver. Cholecystectomy clips. SPLEEN: Normal size. No focal lesion. PANCREAS: No mass, ductal dilation, or sid-pancreatic fluid. ADRENALS: 18 mm left adrenal mass is present, probably an adenoma. Normal right adrenal gland. KIDNEYS AND URETERS: Small calcifications inferior right kidney without hydronephrosis. No left renal stone or hydronephrosis. URINARY BLADDER: Normal contour. GASTROINTESTINAL TRACT: No evidence of bowel obstruction, significant free fluid, free air or abscess. APPENDIX: Normal appendix. LYMPH NODES: No lymphadenopathy. MUSCULOSKELETAL: Hardware is present proximal left femur. ADDITIONAL FINDINGS: Mild free fluid is seen in the abdomen and pelvis, particularly notable on the left flank. Generalized anasarca noted. IMPRESSION: No definitive acute process seen in the abdomen or pelvis. Generalized fluid retention pattern is present. Airspace opacity with pleural fluid in both lung bases may represent atelectasis or pneumonia. LEFT VENTRICULAR WALL MOTION: DOPPLER/COLOR FLOW: 1. LIMITED IMAGES OBTAINED 2. OVERALL LEFT VENTRICULAR SYSTOLIC FUNCTION LOOKS NORMAL, EJECTION FRACTION 60-65%, NORMAL WALL MOTION Conclusions/Impression: Stage I RAYNE may be CRS complicated by relative hypotension on admission CKD IV with Proteinuria -No NSAIDs -Continue Lasix 40mg IV q6h Hypokalemia -Replete potassium as ordered HTN with CKD/ CHF -Continue Nebivolol -Continue Hydralazine -Continue Losartan BID -Increase Doxazosin -Agree with Amlodipine Diastolic CHF, A/C -Continue Lasix -Low sodium diet -Cardiology to evaluate DM II with CKD -RISS Hypoalbuminemia -Albumin 25mg IV as needed Anemia in chronic illness Thrombocytopenia -Monitor CBC -Retacrit prn Acute Cystitis with Hematuria -Continue Abx Hospitalist note reviewed Case reviewed with Dr. King
[2024-07-05 04:51] LABS: Absolute Lymphocytes (CBC) 0.8 K/uL (0.7-4.9); Absolute Monocytes 0.5 K/uL (0.1-1.3); Absolute Neutrophil 7.2 K/uL (1.8-8.0); Basophils % 0.3 % (0-1.3); Eosinophils % 0.3 % (0-4.4); Hematocrit 27.2 % (36.0-45.0); Hemoglobin 8.9 g/dL (12.0-15.0); Lymphocytes % 9.1 % (15.3-44.8); MCHC 32.5 g/dL (32.0-36.0); MCV 92.2 fL (80-100); MPV 9.9 fL (7.6-11.3); Monocytes % 5.9 % (3.3-12.3); Neutrophils % 84.4 % (41.7-73.7); Platelets 147 thou/uL (152-406); RBC Red Blood Cell Count 2.95 M/uL (3.86-4.86); Red Cell Distribution Width 17.4 % (12.1-15.2)
[2024-07-05 05:12] LABS: Magnesium 1.6 mg/dL (1.6-2.4); Phosphorus 2.6 mg/dL (2.5-4.9)
[2024-07-05] MEDS: FUROSEMIDE 40 MG/4 ML VIAL IV SCH (08:00)
[2024-07-05] MEDS: MAGNESIUM SULFATE 1 gm IVPB 1 GM/100 ML BAG IV ONE (08:24)
[2024-07-05] MEDS: SPIRONOLACTONE 25 MG TABLET PO SCH (08:25)
[2024-07-05] MEDS: POTASSIUM 25 MEQ EFFERV TAB PO ONE (08:25)
[2024-07-05] MEDS ORDERED: DOCUSATE NA 100 MG CAP PO PRN (10:28)
[2024-07-05] MEDS: VITAMIN D 1000 UNIT TAB PO SCH (12:00)
[2024-07-05] MEDS: ALBUMIN HUMAN 25% 100 ML IV ONE (12:22)
[2024-07-05] MEDS: BUSPIRONE HCL 5 MG TABLET PO SCH (14:14)
--- NOTE | 2024-07-05 15:07 | P.PN ---
Subjective Date of Service: 07/05/24 Chief Complaint: Abdominal pain Subjective: No new changes Review of Systems 10-point ROS is otherwise unremarkable Physical Examination - Vital Signs Temperature: 98.6 F Blood Pressure: 147/55 Pulse: 63 Respirations: 16 Pulse Ox (%): 99 - Physical Exam General: Alert, In no apparent distress HEENT: Atraumatic, PERRLA, EOMI Neck: Supple, JVD not distended Respiratory: Clear to auscultation bilaterally, Normal air movement Cardiovascular: Regular rate/rhythm, Normal S1 S2 Gastrointestinal: Normal bowel sounds, No tenderness Musculoskeletal: No tenderness Integumentary: No rashes Neurological: Normal speech, Normal tone, Normal affect Lymphatics: No axilla or inguinal lymphadenopathy - Studies Medications List Reviewed: Yes Assessment And Plan - Current Problems (Diagnosis) (1) Acute on chronic diastolic heart failure Current Visit: Yes Status: Acute Plan: Continue Lasix 40 mg IV Q 12 hours continue Coreg 25 mg po BID Continue Losartan 50 mg po BID Continue Hydralazine 100 mg TID Consider adding Imdur 30 mg daily Stop Bystolic continue to monitor input and output Echo poor images but LV function looks normal (2) HTN (hypertension) Current Visit: Yes Status: Acute Plan: adjust medications as above. (3) CKD (chronic kidney disease) Current Visit: Yes Status: Acute Plan: continue to monitor kidney function.
--- NOTE | 2024-07-05 15:59 | P.PN ---
(S) Pt seen resting in bed, lethargic but NAD noted, on LFNC, barbosa draining well, diuresing well in past days on IV lasix (O) Vitals reviewed in the EMR General: Appears elderly, chronically ill HEENT: Atraumatic, LFNC Neck: Supple Respiratory: Poor resp effort, non tachypnec, reduced BS at bases Cardiovascular: Distant heart sounds, non tachy Gastrointestinal: Obese, ND, NT Musculoskeletal: Improved b/l LE edema below knees Integumentary: No rashes Neurological: Lethargic, awakens easily, responds briefly, slumped over, minimal spont movement of ext Blood work reviewed in the chart. A/P) Stage I RAYNE, evolving, underlying CKD Stage IV, recurrent RAYNE episodes in the past, likely 2nd to Type 1 CRS/fluid overload, complicated UTI, other -Renal function had worsened end of last week but has since peaked with some downward trend on diuresis and with decongestive treatment. Monitor lytes closely Mod azotemia -In the setting of above, trend closely, levels have peaked Abnormal findings in urine, pyuria, other. Acute cystitis. -Treated Diastolic CHF, A/C. Fluid overload. Acute pulm edema, peripheral edema. Elevated BNP > 10K -Diuresing well with improvement in peripheral edema noted although BNP remains sig elevated, will cont IV lasix but lower dose slightly, will add MRA Metab alkalosis -In the setting of CHF, diuresis, hypokalemia -Will target K > 4.0 and add Spironolactone Suresh Melgar MD, VI
[2024-07-05] MEDS: allopurinoL 300 MG TAB PO SCH (17:42)
[2024-07-05] MEDS: ASCORBIC ACID 500 MG TABLET PO SCH (20:29)
[2024-07-05] MEDS: APIXABAN 2.5 MG TABLET PO SCH (20:29)
[2024-07-05] MEDS: GABAPENTIN 300 MG CAP PO SCH (20:29)
[2024-07-05 23:42] LABS: BUN Blood Urea Nitrogen 64 mg/dL (7-18); Bicarbonate > 45 mEq/L (21-32); Glomerular Filtration Rate 20 ml/min (=/>90); Glucose Level 135 mg/dL (74-106); Magnesium 1.9 mg/dL (1.6-2.4); Sodium Level 135 mEq/L (136-145)
[2024-07-06] MEDS: POTASSIUM 25 MEQ EFFERV TAB PO ONE (00:28)
[2024-07-06 07:21] LABS: Absolute Eosinophils 0.1 K/uL (0-0.5); Absolute Lymphocytes (CBC) 1.2 K/uL (0.7-4.9); Absolute Monocytes 0.7 K/uL (0.1-1.3); Absolute Neutrophil 6.1 K/uL (1.8-8.0); Basophils % 0.4 % (0-1.3); Eosinophils % 1.4 % (0-4.4); Hematocrit 28.4 % (36.0-45.0); Hemoglobin 9.4 g/dL (12.0-15.0); Lymphocytes % 15.2 % (15.3-44.8); MCH 30.4 pg (27.0-35.0); MCHC 32.9 g/dL (32.0-36.0); MCV 92.5 fL (80-100); MPV 10.3 fL (7.6-11.3); Monocytes % 8.1 % (3.3-12.3); Neutrophils % 74.9 % (41.7-73.7); Platelets 148 thou/uL (152-406); RBC Red Blood Cell Count 3.08 M/uL (3.86-4.86); Red Cell Distribution Width 16.9 % (12.1-15.2)
[2024-07-06 07:39] LABS: Anion Gap 9.4 mEq/L (5.0-15.0); BUN Blood Urea Nitrogen 69 mg/dL (7-18); Glomerular Filtration Rate 20 ml/min (=/>90); Glucose Level 148 mg/dL (74-106); Potassium 3.4 mEq/L (3.5-5.1); Sodium Level 137 mEq/L (136-145)
[2024-07-06 07:40] LABS: Bicarbonate > 45 mEq/L (21-32)
[2024-07-06] MEDS: CALCIUM CARBONATE CHEW 500MG TAB PO SCH (08:53)
[2024-07-06] MEDS: ASPIRIN EC 81 MG TAB PO SCH (08:56)
[2024-07-06] MEDS: POTASSIUM CL SA 10 MEQ TAB PO ONE ×2 (08:56→11:37)
[2024-07-06] MEDS: FAMOTIDINE 20 MG TAB PO SCH (08:56)
[2024-07-06] MEDS: NEBIVOLOL HCL 5 MG TAB PO SCH (08:58)
[2024-07-06] MEDS: INSULIN GLARGINE 100 UNIT/ML SQ SCH (08:59)
[2024-07-06] MEDS: ESCITALOPRAM OXALATE 10 MG TABLET PO SCH (09:00)
--- NOTE | 2024-07-06 12:23 | P.PN ---
(S) Pt lethargic, no other acute distress or events noted, vitals stable, remains on LFNC, continues to diurese (O) Vitals reviewed in the EMR General: Appears elderly, chronically ill HEENT: Atraumatic, LFNC Neck: Supple Respiratory: Poor resp effort, non tachypnec, reduced BS at bases Cardiovascular: Distant heart sounds, non tachy Gastrointestinal: Obese, ND, NT Musculoskeletal: Improved b/l LE edema below knees Integumentary: No rashes Neurological: Lethargic, awakens easily, responds briefly, slumped over, minimal spont movement of ext Blood work reviewed in the chart. A/P) Stage I RAYNE, evolving, underlying CKD Stage IV, recurrent RAYNE episodes in the past, likely 2nd to Type 1 CRS/fluid overload, complicated UTI, other -Renal function had worsened end of last week but has since peaked with some downward trend on diuresis and with decongestive treatment. Monitor lytes closely, de-escalate loop diuretics Mod azotemia -In the setting of above, trend closely, levels have peaked Abnormal findings in urine, pyuria, other. Acute cystitis. -Treated Diastolic CHF, A/C. Fluid overload. Acute pulm edema, peripheral edema. Elevated BNP > 10K -Diuresing well with improvement in peripheral edema noted although BNP remains sig elevated, will cont IV lasix but lower dose further, did add MRA Metab alkalosis -In the setting of CHF, diuresis, hypokalemia -Will target K > 4.0 and added Spironolactone. Add Diamox -Check ABG to assess pH and compensatory resp acidosis levels and to guide further adjustment in meds Suresh Melgar MD, VI
[2024-07-06] MEDS: acetaZOLAMIDE 250 MG TAB PO SCH (12:44)
[2024-07-06 14:05] LABS: Blood O2 Saturation 99.2 % (92-98.5)
[2024-07-06 14:06] LABS: Arterial Blood Carboxyhemoglob 1.7 % (0-1.5); Blood Gas Oxyhemoglobin 96.5 % (94-97); Blood Gas THB 9.4 g/dl (12-18)
[2024-07-06] MEDS: FUROSEMIDE 20 MG/ 2ML VIAL IV SCH (16:29)
[2024-07-06] MEDS: ALBUMIN HUMAN 25% 100 ML IV ONE (16:44)
[2024-07-06] MEDS ORDERED: FUROSEMIDE 20 MG/ 2ML VIAL IV SCH (21:00)
[2024-07-06] MEDS: carvediloL 25 MG TAB PO ONE (21:47)
--- NOTE | 2024-07-07 05:07 | P.PN ---
Subjective Date of Service: 07/05/24 Patient clinically doing well with no new complaints. Patient is resting comfortably. She is awake and alert alert but confused. Review of Systems is unable to be obtained Physical Examination - Vital Signs Temperature: 98.5 F Blood Pressure: 144/65 Pulse: 65 Respirations: 16 Pulse Ox (%): 100 - Physical Exam General: Alert, Confused Respiratory: Diminished, Crackles/rales Cardiovascular: Regular rate/rhythm, Normal S1 S2 Gastrointestinal: Normal bowel sounds, Soft and benign, Non-distended Musculoskeletal: No clubbing, Swelling Neurological: Other (Generalized weakness) - Studies Medications List Reviewed: Yes Assessment & Plan - Problems (Diagnosis) (1) Acute on chronic diastolic heart failure Current Visit: Yes Status: Acute (2) Abdominal pain Current Visit: Yes Status: Acute (3) Metabolic alkalosis Current Visit: Yes Status: Acute (4) CKD (chronic kidney disease) Current Visit: Yes Status: Acute (5) HTN (hypertension) Current Visit: Yes Status: Acute (6) Anemia Current Visit: No Status: Acute (7) Obesity (BMI 30-39.9) Current Visit: No Status: Acute (8) Type 2 diabetes mellitus Current Visit: Yes Status: Acute Qualifiers: Diabetes mellitus terminal manager insulin use: without retirement use - Plan 1. Abdominal pain: This had resolved; may be related to constipation. 2. Pneumonia: Respiratory status is stable but patient appears to be a little fluid overloaded. She is on diuretics. Will continue monitoring labs closely. Patient has chronic kidney disease and has developed what possibly could be contraction alkalosis. Will monitor labs closely. 3. Acute diastolic CHF: Continue Lasix, cardiology consulted, volume status improved 4. COPD (on home O2): Continue inhalers/nebs. 5 Chronic kidney disease, CKD 3B: Monitor renal function closely with diuretics, nephrology consult on board 6. Hyperkalemia: This has resolved; Continue monitoring labs closely 7. Hypertension: Hemodynamics are stable and continue monitoring BP closely 8. Type 2 diabetes mellitus: Monitor sugars closely; Resume oral hypoglycemic agents 9. Dyslipidemia; continue with statin therapy 10. Bicytopenia; Monitor CBC 11. Major depressive disorder; Resume antidepressants 12. Obstructive sleep apnea; Obstructive sleep apnea at night 13. Encephalopathy; Patient appears to have chronic altered mentation. Possibly dementia. Continue with conservative management. Discharge Plan: Senior Living Plan to discharge in: Greater than 2 days - Advance Directives Does patient have a Living Will: Yes Does patient have a Durable POA for Healthcare: No - Code Status/Comfort Care Code Status Assessed: Yes Code Status: Full Code Critical Care: No Time Spent Managing PTS Care (In Minutes): 35
--- NOTE | 2024-07-07 05:08 | P.PN ---
Date of Service: 07/06/24 Subjective Patient is doing well with no new complaints. Patient continues to have worsening metabolic alkalosis. ABGs and additional labs ordered by nephrology. Physical Examination - Vital Signs reviewed - Physical Exam General: Alert, Confused Respiratory: Diminished, Crackles/rales Cardiovascular: Regular rate/rhythm, Normal S1 S2 Gastrointestinal: Normal bowel sounds, Soft and benign, Non-distended Musculoskeletal: No clubbing, Swelling Neurological: Other (Generalized weakness) Assessment & Plan - Problems (Diagnosis) (1) Acute on chronic diastolic heart failure Current Visit: Yes Status: Acute (2) Abdominal pain Current Visit: Yes Status: Acute (3) Metabolic alkalosis Current Visit: Yes Status: Acute (4) CKD (chronic kidney disease) Current Visit: Yes Status: Acute (5) HTN (hypertension) Current Visit: Yes Status: Acute (6) Anemia Current Visit: No Status: Acute (7) Obesity (BMI 30-39.9) Current Visit: No Status: Acute (8) Type 2 diabetes mellitus Current Visit: Yes Status: Acute Qualifiers: Diabetes mellitus terminal press operator insulin use: without terminal press operator use - Plan Continue with plan of care as mentioned below: 1. Abdominal pain: This had resolved; may be related to constipation. 2. Pneumonia: Respiratory status is stable but patient appears to be a little fluid overloaded. She is on diuretics. Will continue monitoring labs closely. Patient has chronic kidney disease and has developed what possibly could be contraction alkalosis. Will monitor labs closely. 3. Acute diastolic CHF: Continue Lasix, cardiology consulted, volume status improved 4. COPD (on home O2): Continue inhalers/nebs. 5 Chronic kidney disease, CKD 3B: Monitor renal function closely with diuretics, nephrology consult on board 6. Hyperkalemia: This has resolved; Continue monitoring labs closely 7. Hypertension: Hemodynamics are stable and continue monitoring BP closely 8. Type 2 diabetes mellitus: Monitor sugars closely; Resume oral hypoglycemic agents 9. Dyslipidemia; continue with statin therapy 10. Bicytopenia; Monitor CBC 11. Major depressive disorder; Resume antidepressants 12. Obstructive sleep apnea; Obstructive sleep apnea at night 13. Encephalopathy; Patient appears to have chronic altered mentation. Possibly dementia. Continue with conservative management. Discharge Plan: Sn[facility] Plan to discharge in: Greater than 2 days - Advance Directives Does patient have a Living Will: Yes Does patient have a Durable POA for Healthcare: No - Code Status/Comfort Care Code Status Assessed: Yes Code Status: Full Code Critical Care: No Time Spent Managing PTS Care (In Minutes): 30
[2024-07-07 07:42] LABS: Absolute Eosinophils 0.1 K/uL (0-0.5); Absolute Lymphocytes (CBC) 1.1 K/uL (0.7-4.9); Absolute Monocytes 0.5 K/uL (0.1-1.3); Absolute Neutrophil 7.6 K/uL (1.8-8.0); Basophils % 0.4 % (0-1.3); Eosinophils % 1.1 % (0-4.4); Hematocrit 28.7 % (36.0-45.0); Hemoglobin 9.2 g/dL (12.0-15.0); Lymphocytes % 11.5 % (15.3-44.8); MCH 29.7 pg (27.0-35.0); MCHC 31.9 g/dL (32.0-36.0); MCV 93.3 fL (80-100); MPV 10.2 fL (7.6-11.3); Monocytes % 5.8 % (3.3-12.3); Neutrophils % 81.2 % (41.7-73.7); Platelets 164 thou/uL (152-406); RBC Red Blood Cell Count 3.08 M/uL (3.86-4.86); Red Cell Distribution Width 17.4 % (12.1-15.2)
[2024-07-07 07:55] LABS: Anion Gap 5.9 mEq/L (5.0-15.0); Potassium 3.9 mEq/L (3.5-5.1)
[2024-07-07 07:58] LABS: Albumin 3.4 g/dL (3.4-5.0); Albumin/Globulin Ratio 0.9 (1.1-1.8); Bilirubin Direct 0.2 mg/dL (0-0.2); Bilirubin Indirect, Calculated 0.5 mg/dL (0.2-0.8); Bilirubin Total 0.7 mg/dL (0.2-1.0); Globulin 3.6 g/dL (2.3-3.5)
--- NOTE | 2024-07-07 08:58 | RAD REPORT ---
EXAMINATION: ONE VIEW CHEST XR CLINICAL INDICATION: pneumonia TECHNIQUE: Frontal chest projection is submitted. Examination is limited by patient positioning and t echnique. COMPARISON: 06/27/2024 FINDINGS: Bilateral pulmonary opacities are noted, mildly to moderately improved since comparative radiographs. This may represent pulmonary edema or pneumonia. The heart is moderately enlarged. No displaced fractures identified. Cervical spine levoscoliosis.
[2024-07-07] MEDS: ALBUMIN HUMAN 25% 100 ML IV ONE (12:10)
--- NOTE | 2024-07-07 13:08 | P.PN ---
(S) Pt less lethargic today, remains on LFNC, no resp distress, vitals reviewed, BP not elevated, pt has had several BP meds added/ordered over the past week(s), RN appropriately held most of them this AM with SBP < 120. Reviewed all meds and adjusted regimen (O) Vitals reviewed in the EMR General: Appears elderly, chronically ill HEENT: Atraumatic, LFNC Neck: Supple Respiratory: Poor resp effort, non tachypnec, reduced BS at bases Cardiovascular: Distant heart sounds, non tachy Gastrointestinal: Obese, ND, NT Musculoskeletal: Improved b/l LE edema below knees Integumentary: No rashes Neurological: Lethargic, awakens easily, responds briefly, slumped over, minimal spont movement of ext Blood work reviewed in the chart. A/P) Stage I RAYNE, recurrent, underlying CKD Stage IV, recurrent RAYNE episodes in the past, likely 2nd to Type 1 CRS/fluid overload, complicated UTI, other -Renal function had worsened end of last week but has since peaked with some downward trend on diuresis and with decongestive treatment but now again worse post diuresis and with BP lowering and possibly a result of re-introduction of max dose ARB over the past week. Monitor closely Mod azotemia -In the setting of above, trend closely, levels have peaked Chronic hypertensive heart and kidney disease with HF -Multiple meds ordered, in the setting of above and with recurrent RAYNE, will suspend ARB. Will cut back on vasodilator therapy, two beta blockers are ordered. D/c Bystolic. Holding parameters placed Abnormal findings in urine, pyuria, other. Acute cystitis. -Treated Diastolic CHF, A/C. Fluid overload. Acute pulm edema, peripheral edema. Elevated BNP > 10K -Diuresed well with sig improvement in peripheral edema noted although BNP remains sig elevated, will temp suspend MRA. Will cont lower dose MRA for now Metab alkalosis, alkalemia -In the setting of CHF, diuresis, hypokalemia -Will target K > 4.0 and added Spironolactone. Added Diamox -Checked ABG to assess pH which is elevated at 7.5, and with compensatory resp acidosis levels. Lasix suspended. Will order small NS IVF bolus Suresh Melgar MD, VI
[2024-07-07] MEDS: ESCITALOPRAM OXALATE 10 MG TABLET PO SCH (14:56)
[2024-07-07] MEDS ORDERED: FUROSEMIDE 20 MG/ 2ML VIAL IV SCH (17:00)
[2024-07-07] MEDS: NA CHLORIDE 0.9% 250 ML IV ONE (17:19)
[2024-07-07] MEDS: allopurinoL 300 MG TAB PO SCH (17:19)
[2024-07-07] MEDS: POTASSIUM 25 MEQ EFFERV TAB PO ONE (22:20)
[2024-07-07] MEDS: HYDRALAZINE HCL 25 MG TABLET PO SCH (22:23)
[2024-07-08 04:36] LABS: Absolute Eosinophils 0.2 K/uL (0-0.5); Absolute Lymphocytes (CBC) 1.4 K/uL (0.7-4.9); Absolute Monocytes 0.6 K/uL (0.1-1.3); Absolute Neutrophil 6.1 K/uL (1.8-8.0); Basophils % 0.6 % (0-1.3); Eosinophils % 2.2 % (0-4.4); Hematocrit 28.2 % (36.0-45.0); Lymphocytes % 16.7 % (15.3-44.8); MCH 29.9 pg (27.0-35.0); MCV 93.5 fL (80-100); MPV 10.9 fL (7.6-11.3); Monocytes % 7.3 % (3.3-12.3); Neutrophils % 73.2 % (41.7-73.7); Nucleated Red Blood Cells % 0.1 % (0-0); Platelets 152 thou/uL (152-406); RBC Red Blood Cell Count 3.01 M/uL (3.86-4.86); Red Cell Distribution Width 17.1 % (12.1-15.2)
[2024-07-08 04:53] LABS: Anion Gap 6.1 mEq/L (5.0-15.0); Potassium 3.1 mEq/L (3.5-5.1)
[2024-07-08] MEDS: ASCORBIC ACID 500 MG TABLET PO SCH (08:43)
[2024-07-08] MEDS: GABAPENTIN 300 MG CAP PO SCH (08:43)
[2024-07-08] MEDS: POTASSIUM 25 MEQ EFFERV TAB PO ONE (08:43)
[2024-07-08] MEDS: AMLODIPINE 2.5 MG TAB PO SCH (08:46)
--- NOTE | 2024-07-08 09:57 | P.PN ---
Subjective Date of Service: 07/08/24 Chief Complaint: Abdominal pain Subjective: No new changes, No C/O voiced, Tolerating diet, Ambulating, Improving Review of Systems 10-point ROS is otherwise unremarkable Physical Examination - Vital Signs Temperature: 97.9 F Blood Pressure: 132/51 Pulse: 56 Respirations: 14 Pulse Ox (%): 100 - Physical Exam General: Alert, In no apparent distress HEENT: Atraumatic, PERRLA, EOMI Neck: Supple, JVD not distended Respiratory: Clear to auscultation bilaterally, Normal air movement Cardiovascular: Regular rate/rhythm, Normal S1 S2 Gastrointestinal: Normal bowel sounds, No tenderness Musculoskeletal: No tenderness Integumentary: No rashes Neurological: Normal speech, Normal tone, Normal affect Lymphatics: No axilla or inguinal lymphadenopathy - Studies Medications List Reviewed: Yes Assessment And Plan - Current Problems (Diagnosis) (1) Acute on chronic diastolic heart failure Current Visit: Yes Status: Acute Plan: Continue Diamox 250 mg daily continue Coreg 25 mg po BID Continue Losartan 50 mg po BID Continue Hydralazine 100 mg TID Consider adding Imdur 30 mg daily stop Norvasc continue to monitor input and output Echo poor images but LV function looks normal Cardiology will sign off, please call with any questions (2) HTN (hypertension) Current Visit: Yes Status: Acute Plan: adjust medications as above. (3) CKD (chronic kidney disease) Current Visit: Yes Status: Acute Plan: continue to monitor kidney function.
--- NOTE | 2024-07-08 11:00 | P.PN ---
Date of Service: 07/08/24 Vital Signs Temp Pulse Resp BP Pulse Ox 97.9 F 56 14 132/51 L 100 07/08/24 09:56 07/08/24 09:56 07/08/24 09:56 07/08/24 09:56 07/08/24 09:56 Medications Acetaminophen (Acetaminophen 500 Mg Tab) 500 mg PO Q4HP PRN PRN Reason: Pain scale 5-7 (Moderate) Last Admin: 07/05/24 20:46 Dose: 500 mg Acetazolamide (Acetazolamide 250 Mg Tab) 250 mg PO DAILY [facility] Last Admin: 07/08/24 08:44 Dose: 250 mg Albuterol Sulfate (Albuterol 2.5 Mg/3 Ml Neb Jessy) 2.5 mg NEB [id number] PRN PRN Reason: SHORTNESS OF BREATH Allopurinol (Allopurinol 300 Mg Tab) 150 mg PO DAILY AT SUPPER [facility] Last Admin: 07/07/24 17:19 Dose: 150 mg Amlodipine Besylate (Amlodipine 2.5 Mg Tab) 2.5 mg PO DAILY [facility] Last Admin: 07/08/24 08:46 Dose: 2.5 mg Apixaban (Apixaban 2.5 Mg Tablet) 2.5 mg PO BID [facility] Last Admin: 07/08/24 08:45 Dose: 2.5 mg Ascorbic Acid (Ascorbic Acid 500 Mg Tablet) 500 mg PO DAILY [facility] Last Admin: 07/08/24 08:43 Dose: 500 mg Aspirin (Aspirin Ec 81 Mg Tab) 81 mg PO DAILY [facility] Last Admin: 07/08/24 08:44 Dose: 81 mg Buspirone HCl (Buspirone Hcl 5 Mg Tablet) 10 mg PO TID [facility] Last Admin: 07/08/24 08:44 Dose: 10 mg Calcium Carbonate/Glycine (Calcium Carbonate Chew 500mg Tab) 500 mg PO DAILY [facility] Last Admin: 07/08/24 08:48 Dose: 500 mg Carvedilol (Carvedilol 25 Mg Tab) 12.5 mg PO BID 6AM 6PM [facility] Cholecalciferol (Vitamin D 1000 Unit Tab) 1,000 unit PO NOON [facility] Last Admin: 07/07/24 12:00 Dose: 1,000 unit Docusate Sodium (Docusate Na 100 Mg Cap) 100 mg PO DAILY PRN PRN Reason: CONSTIPATION Doxazosin Mesylate (Doxazosin 4 Mg Tab) 4 mg PO BEDTIME [facility] Escitalopram Oxalate (Escitalopram Oxalate 10 Mg Tablet) 10 mg PO DAILY [facility] Last Admin: 07/08/24 08:45 Dose: 10 mg Famotidine (Famotidine 20 Mg Tab) 20 mg PO DAILY [facility]; Protocol Last Admin: 07/08/24 08:44 Dose: 20 mg Gabapentin (Gabapentin 300 Mg Cap) 300 mg PO DAILY [facility] Last Admin: 07/08/24 08:43 Dose: 300 mg Glucagon (Glucagon 1 Mg/Vial) 1 mg IM 1X PRN PRN Reason: HYPOGLYCEMIA Hydralazine HCl (Hydralazine Hcl 25 Mg Tablet) 100 mg PO BID [facility] Last Admin: 07/08/24 08:45 Dose: 100 mg Dextrose (Dextrose 10% Water Iv Soln.) 125 mls @ 0 mls/hr IV PRN PRN; Protocol PRN Reason: HYPOGLYCEMIA Insulin Glargine (Insulin Glargine 100 Unit/Ml) 15 unit SQ DAILY [facility] Last Admin: 07/08/24 08:46 Dose: 15 unit Insulin Human Regular (Insulin Regular (Human) 100 Unit/Ml) 0 unit SQ ACHS [facility]; Protocol Last Admin: 07/08/24 08:46 Dose: 3 unit Melatonin (Melatonin 5 Mg Tablet) 10 mg PO BEDTIME PRN PRN PRN Reason: INSOMNIA Last Admin: 07/01/24 21:04 Dose: 10 mg Ondansetron HCl (Ondansetron 4 Mg/2 Ml Vial) 4 mg IV Q6HP PRN PRN Reason: NAUSEA / VOMITING Last Admin: 07/03/24 21:53 Dose: 4 mg Spironolactone (Spironolactone 25 Mg Tablet) 25 mg PO DAILY [facility] Last Admin: 07/08/24 08:44 Dose: 25 mg Microbiology Results 06/25/24 20:06 Blood - Blood Aerobic Blood Culture - Final No growth in 5 days. 06/25/24 20:06 Blood - Blood Anaerobic Blood Culture - Final No growth in 5 days. 06/25/24 20:00 Blood - Blood Aerobic Blood Culture - Final No growth in 5 days. 06/25/24 20:00 Blood - Blood Anaerobic Blood Culture - Final No growth in 5 days. 06/25/24 21:54 Clean Catch Urine Voltaire Count - Final >100,000 CFU/ML. 06/25/24 21:54 Clean Catch Urine - Final Assessment/ Plan: Nephrology No dyspnea No chest pain No acute events overnight Limited IH/ ROS due to mental status Vitals, medications, blood work and imaging reviewed in the chart General: In no apparent distress, Cooperative HEENT: Atraumatic Neck: Supple Respiratory: Normal air movement Cardiovascular: Regular rate/rhythm, No Edema Gastrointestinal: Non-distended, NT Musculoskeletal: No clubbing, No contractures, Tenderness Integumentary: No rashes, No cyanosis Neurological: Normal speech Blood work reviewed in the chart. Imagings Data: EXAMINATION: ONE VIEW CHEST XR CLINICAL INDICATION: ABDOMINAL DISTENTION TECHNIQUE: Frontal chest projection is submitted. Examination is limited by patient positioning and technique. COMPARISON: 06/02/2024 FINDINGS: Moderate airspace opacity right lower lung likely representing infiltrate/pneumonia. Mild pulmonary edema also present. The heart is moderately enlarged in size. No displaced fractures identified. IMPRESSION: Moderate airspace opacity right lower lung likely representing pneumonia. Underlying CHF pattern is also present. EXAMINATION: CT ABDOMEN AND PELVIS WITHOUT CONTRAST CLINICAL INDICATION: ABD PAIN TECHNIQUE: CT abdomen and pelvis was performed, without IV contrast, as per department protocol. Axial, sagittal and coronal reconstructions were obtained. One or more of the following dose reduction techniques were used: Automated exposure control, adjustment of the mA and kV according to the patient size, and iterative reconstruction. Unless otherwise specified, incidental findings do not require dedicated imaging follow-up. COMPARISON: 06/04/2024 FINDINGS: The lack of intravenous contrast limits the sensitivity of this exam for evaluation of solid visceral organs, vascular structures, and retroperitoneum. LOWER CHEST: Small bilateral pleural effusions with airspace opacity/consolidation in both lung bases, greater on the left. Pneumonia is a possibility versus atelectasis. LIVER:Mild hepatomegaly with fatty liver. Cholecystectomy clips. SPLEEN: Normal size. No focal lesion. PANCREAS: No mass, ductal dilation, or sid-pancreatic fluid. ADRENALS: 18 mm left adrenal mass is present, probably an adenoma. Normal right adrenal gland. KIDNEYS AND URETERS: Small calcifications inferior right kidney without hydronephrosis. No left renal stone or hydronephrosis. URINARY BLADDER: Normal contour. GASTROINTESTINAL TRACT: No evidence of bowel obstruction, significant free fluid, free air or abscess. APPENDIX: Normal appendix. LYMPH NODES: No lymphadenopathy. MUSCULOSKELETAL: Hardware is present proximal left femur. ADDITIONAL FINDINGS: Mild free fluid is seen in the abdomen and pelvis, particularly notable on the left flank. Generalized anasarca noted. IMPRESSION: No definitive acute process seen in the abdomen or pelvis. Generalized fluid retention pattern is present. Airspace opacity with pleural fluid in both lung bases may represent atelectasis or pneumonia. LEFT VENTRICULAR WALL MOTION: DOPPLER/COLOR FLOW: 1. LIMITED IMAGES OBTAINED 2. OVERALL LEFT VENTRICULAR SYSTOLIC FUNCTION LOOKS NORMAL, EJECTION FRACTION 60-65%, NORMAL WALL MOTION Conclusions/Impression: Stage I RAYNE may be CRS complicated by relative hypotension on admission CKD IV with Proteinuria -No NSAIDs Hypokalemia -Replete potassium as ordered HTN with CKD/ CHF -Reduce Coreg due to bradycardia -Continue Hydralazine -Continue Doxazosin -Continue Amlodipine Diastolic CHF, A/C -Continue Diamox and Spironolactone DM II with CKD -RISS Hypoalbuminemia -Albumin 25mg IV as needed Anemia in chronic illness Thrombocytopenia -Monitor CBC -Retacrit prn Acute Cystitis with Hematuria -Continue Abx Hospitalist note reviewed
[2024-07-08] MEDS ORDERED: ALBUTEROL 2.5 MG/3 ML NEB SOL NEB PRN (12:10)
[2024-07-08] MEDS: allopurinoL 100 MG TAB PO SCH (16:45)
[2024-07-08] MEDS: carvediloL 12.5 MG TAB PO SCH (17:00)
[2024-07-08] MEDS: DOXAZOSIN 2 MG TAB PO SCH (20:25)
[2024-07-08] MEDS: ENSURE HIGH PROTEIN 237 ML CAN PO SCH (20:31)
[2024-07-08] MEDS ORDERED: DOXAZOSIN 4 MG TAB PO SCH (21:00)
[2024-07-09 04:59] LABS: Anion Gap 7.7 mEq/L (5.0-15.0); Potassium 3.7 mEq/L (3.5-5.1); Uric Acid 5.4 mg/dL (2.6-6.0)
--- NOTE | 2024-07-09 07:00 | P.PN ---
Date of Service: 07/07/24 Subjective Patient is a 79-year-old female who came to the hospital with heart failure with preserved ejection fraction; patient was diuresed extensively and patient developed worsening metabolic alkalosis. Patient had compensatory metabolic alkalosis along with contraction alkalosis. Patient was started on acetazolamide. Patient's volume status has stabilized. Patient overall is doing better. Patient's has been advanced dementia but she follows commands and she is able to feed herself. Patient's blood sugars have been slightly elevated but overall she is clinically improved and plan was to discharge home once we get patient's metabolic alkalosis improved. Appreciate nephrology's assistance in patient's care. Anticipate discharge back to [facility] over the next 48 hours. Physical Examination - Vital Signs reviewed - Physical Exam General: Alert, Confused; Follows some commands Respiratory: Diminished, Crackles-But mostly clear. Diminished breath sounds Cardiovascular: Regular rate/rhythm, Normal S1 S2 Gastrointestinal: Normal bowel sounds, Soft and benign, Non-distended Musculoskeletal: No clubbing, Swelling Neurological: Other (Generalized weakness) Assessment & Plan - Problems (Diagnosis) (1) Acute on chronic diastolic heart failure Current Visit: Yes Status: Acute (2) Abdominal pain Current Visit: Yes Status: Acute (3) Metabolic alkalosis Current Visit: Yes Status: Acute (4) CKD (chronic kidney disease) Current Visit: Yes Status: Acute (5) HTN (hypertension) Current Visit: Yes Status: Acute (6) Anemia Current Visit: No Status: Acute (7) Obesity (BMI 30-39.9) Current Visit: No Status: Acute (8) Type 2 diabetes mellitus Current Visit: Yes Status: Acute Qualifiers: Diabetes mellitus senior care insulin use: without senior care use - Plan Continue with plan of care as mentioned below: 1. Patient with heart failure with preserved ejection fraction with volume overload; patient is status post aggressive diuresing with secondary contraction alkalosis. Patient started on acetazolamide. Continue monitoring bicarb level and once this stabilizes we will anticipate discharge back to [facility]. 2. Metabolic syndrome; strict blood pressure and blood sugar control and continue with statin therapy; patient also on antidepressant and CPAP for obstructive sleep apnea 3. Patient with chronic kidney disease with hyperkalemia; continue with monitoring electrolytes closely. 4. Bicytopenia; monitor CBC and make sure platelets and hemoglobin is stable 5. Questionable pneumonia; no fever and currently clinical symptoms have stabilized. Most likely fluid overload but will continue with monitoring patient's vitals closely and can repeat a chest x-ray to make sure complete resolution 6. Constipation; most likely etiology of initial abdominal pain. Continue with laxative therapy 7. Dementia; continue with supportive care. Discussed with patient's family regarding prognosis going forward Discharge Plan: Detention Plan to discharge in: Greater than 2 days - Advance Directives Does patient have a Living Will: Yes Does patient have a Durable POA for Healthcare: No - Code Status/Comfort Care Code Status Assessed: Yes Code Status: Full Code Critical Care: No Time Spent Managing PTS Care (In Minutes): 30
--- NOTE | 2024-07-09 07:01 | P.PN ---
Date of Service: 07/08/24 Subjective Patient is doing well with no new complaints. Labs are stable. Metabolic alkalosis seems to be stable as well. Working on discharge planning back to [facility]. Had been talking with family as well and patient appears to be improved and at least back to baseline. Appreciate nephrology assistance in patient care and okay to discharge once nephrology and cardiology agreeable. 07/07 Patient is a 79-year-old female who came to the hospital with heart failure with preserved ejection fraction; patient was diuresed extensively and patient developed worsening metabolic alkalosis. Patient had compensatory metabolic alkalosis along with contraction alkalosis. Patient was started on virgen tazolamide. Patient's volume status has stabilized. Patient overall is doing better. Patient's has been advanced dementia but she follows commands and she is able to feed herself. Patient's blood sugars have been slightly elevated but overall she is clinically improved and plan was to discharge home once we get patient's metabolic alkalosis improved. Appreciate nephrology's assistance in patient's care. Anticipate discharge back to [facility] over the next 48 hours. Physical Examination - Vital Signs reviewed - Physical Exam General: Alert, Confused; Follows some commands Respiratory: Diminished, Crackles-But mostly clear. Diminished breath sounds Cardiovascular: Regular rate/rhythm, Normal S1 S2 Gastrointestinal: Normal bowel sounds, Soft and benign, Non-distended Musculoskeletal: No clubbing, Swelling Neurological: Other (Generalized weakness) Assessment & Plan - Problems (Diagnosis) (1) HFpEF Current Visit: Yes Status: Acute (2) Abdominal pain Current Visit: Yes Status: Acute (3) Metabolic alkalosis Current Visit: Yes Status: Acute (4) CKD (chronic kidney disease) Current Visit: Yes Status: Acute (5) HTN (hypertension) Current Visit: Yes Status: Acute (6) Anemia Current Visit: No Status: Acute (7) Obesity (BMI 30-39.9) Current Visit: No Status: Acute (8) Type 2 diabetes mellitus Current Visit: Yes Status: Acute Qualifiers: Diabetes mellitus production support supervisor insulin use: without production support 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 Patient with heart failure with preserved ejection fraction with volume overload; patient is status post aggressive diuresing with secondary contraction alkalosis. Patient started on acetazolamide. Continue monitoring bicarb level and once this stabilizes we will anticipate discharge back to [facility]. 2. Metabolic syndrome; strict blood pressure and blood sugar control and continue with statin therapy; patient also on antidepressant and CPAP for obstructive sleep apnea 3. Patient with chronic kidney disease with hyperkalemia; continue with monitoring electrolytes closely. 4. Bicytopenia; monitor CBC and make sure platelets and hemoglobin is stable 5. Questionable pneumonia; no fever and currently clinical symptoms have stabilized. Most likely fluid overload but will continue with monitoring patient's vitals closely and can repeat a chest x-ray to make sure complete resolution 6. Constipation; most likely etiology of initial abdominal pain. Continue with laxative therapy 7. Dementia; continue with supportive care. Discussed with patient's family regarding prognosis going forward Discharge Plan: Assisted Plan to discharge in: 24-48hrs - Advance Directives Does patient have a Living Will: Yes Does patient have a Durable POA for Healthcare: No - Code Status/Comfort Care Code Status Assessed: Yes Code Status: Full Code Critical Care: No Time Spent Managing PTS Care (In Minutes): 30
[2024-07-09] MEDS: POTASSIUM 25 MEQ EFFERV TAB PO ONE (08:45)
[2024-07-09] MEDS: SPIRONOLACTONE 25 MG TABLET PO SCH (08:45)
[2024-07-09] MEDS: acetaZOLAMIDE 250 MG TAB PO SCH (08:46)
--- NOTE | 2024-07-09 11:56 | P.PN ---
Date of Service: 07/09/24 Subjective Subjective: Resting in bed. No new complaints overnight. Vitals remained stable Review of system: 10 point review of systems otherwise negative except as mentioned in subjective Physical Examination - Vital Signs reviewed - Physical Exam General: Alert, Confused; Follows some commands Respiratory: Diminished, Crackles-But mostly clear. Diminished breath sounds Cardiovascular: Regular rate/rhythm, Normal S1 S2 Gastrointestinal: Normal bowel sounds, Soft and benign, Non-distended Musculoskeletal: No clubbing, Swelling Neurological: Other (Generalized weakness) Assessment & Plan - Problems (Diagnosis) (1) HFpEF Current Visit: Yes Status: Acute (2) Abdominal pain Current Visit: Yes Status: Acute (3) Metabolic alkalosis Current Visit: Yes Status: Acute (4) CKD (chronic kidney disease) Current Visit: Yes Status: Acute (5) HTN (hypertension) Current Visit: Yes Status: Acute (6) Anemia Current Visit: No Status: Acute (7) Obesity (BMI 30-39.9) Current Visit: No Status: Acute (8) Type 2 diabetes mellitus Current Visit: Yes Status: Acute Qualifiers: 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 Patient with heart failure with preserved ejection fraction with volume overload; patient is status post aggressive diuresing with secondary contraction alkalosis. Continue acetazolamide as below. Bicarb level continues to improve. Once normal will send back to [facility] 2. Metabolic syndrome; strict blood pressure and blood sugar control and continue with statin therapy; patient also on antidepressant and CPAP for obstructive sleep apnea 3. Patient with chronic kidney disease with hyperkalemia; continue with monitoring electrolytes closely. 4. Bicytopenia; monitor CBC and make sure platelets and hemoglobin is stable 5. Questionable pneumonia; no fever and currently clinical symptoms have stabilized. Most likely fluid overload but will continue with monitoring patien t's vitals closely and can repeat a chest x-ray to make sure complete resolution 6. Constipation; most likely etiology of initial abdominal pain. Continue with laxative therapy 7. Dementia; continue with supportive care. Discussed with patient's family regarding prognosis going forward 8. Contraction alkalosis: Currently on Diamox Discharge Plan: [facility] Plan to discharge in: 24-48hrs - Advance Directives Does patient have a Living Will: Yes Does patient have a Durable POA for Healthcare: No - Code Status/Comfort Care Code Status Assessed: Yes Code Status: Full Code Critical Care: No Time Spent Managing PTS Care (In Minutes): 30
[2024-07-09] MEDS: carvediloL 6.25 MG TAB PO SCH (17:25)
--- NOTE | 2024-07-09 19:22 | P.PN ---
Date of Service: 07/09/24 Vital Signs Temp Pulse Resp BP Pulse Ox 98.2 F 56 18 114/62 100 07/09/24 17:30 07/09/24 17:25 07/09/24 16:00 07/09/24 17:25 07/09/24 16:00 Medications Acetaminophen (Acetaminophen 500 Mg Tab) 500 mg PO Q4HP PRN PRN Reason: Pain scale 5-7 (Moderate) Last Admin: 07/08/24 20:30 Dose: 500 mg Acetazolamide (Acetazolamide 250 Mg Tab) 250 mg PO BIDL [facility] Last Admin: 07/09/24 16:30 Dose: 250 mg Albuterol Sulfate (Albuterol 2.5 Mg/3 Ml Neb Jessy) 2.5 mg NEB Q6HP PRN PRN Reason: SHORTNESS OF BREATH Allopurinol (Allopurinol 100 Mg Tab) 100 mg PO DAILY AT SUPPER [facility] Last Admin: 07/09/24 16:30 Dose: 100 mg Amlodipine Besylate (Amlodipine 2.5 Mg Tab) 2.5 mg PO DAILY [facility] Last Admin: 07/09/24 08:45 Dose: 2.5 mg Apixaban (Apixaban 2.5 Mg Tablet) 2.5 mg PO BID [facility] Last Admin: 07/09/24 08:46 Dose: 2.5 mg Ascorbic Acid (Ascorbic Acid 500 Mg Tablet) 500 mg PO DAILY [facility] Last Admin: 07/09/24 08:45 Dose: 500 mg Aspirin (Aspirin Ec 81 Mg Tab) 81 mg PO DAILY [facility] Last Admin: 07/09/24 08:45 Dose: 81 mg Buspirone HCl (Buspirone Hcl 5 Mg Tablet) 10 mg PO TID [facility] Last Admin: 07/09/24 13:53 Dose: 10 mg Calcium Carbonate/Glycine (Calcium Carbonate Chew 500mg Tab) 500 mg PO DAILY [facility] Last Admin: 07/09/24 08:46 Dose: 500 mg Carvedilol (Carvedilol 6.25 Mg Tab) 6.25 mg PO BID 6AM 6PM [facility] Last Admin: 07/09/24 17:25 Dose: Not Given Cholecalciferol (Vitamin D 1000 Unit Tab) 1,000 unit PO NOON [facility] Last Admin: 07/09/24 11:53 Dose: 1,000 unit Docusate Sodium (Docusate Na 100 Mg Cap) 100 mg PO DAILY PRN PRN Reason: CONSTIPATION Doxazosin Mesylate (Doxazosin 2 Mg Tab) 2 mg PO BID [facility] Last Admin: 07/09/24 08:46 Dose: 2 mg Escitalopram Oxalate (Escitalopram Oxalate 10 Mg Tablet) 10 mg PO DAILY [facility] Last Admin: 07/09/24 08:48 Dose: 10 mg Famotidine (Famotidine 20 Mg Tab) 20 mg PO DAILY [facility]; Protocol Last Admin: 07/09/24 08:46 Dose: 20 mg Gabapentin (Gabapentin 300 Mg Cap) 300 mg PO DAILY [facility] Last Admin: 07/09/24 08:45 Dose: 300 mg Glucagon (Glucagon 1 Mg/Vial) 1 mg IM 1X PRN PRN Reason: HYPOGLYCEMIA Hydralazine HCl (Hydralazine Hcl 25 Mg Tablet) 100 mg PO BID [facility] Last Admin: 07/09/24 08:45 Dose: 100 mg Dextrose (Dextrose 10% Water Iv Soln.) 125 mls @ 0 mls/hr IV PRN PRN; Protocol PRN Reason: HYPOGLYCEMIA Insulin Glargine (Insulin Glargine 100 Unit/Ml) 15 unit SQ DAILY [facility] Last Admin: 07/09/24 09:35 Dose: 15 unit Insulin Human Regular (Insulin Regular (Human) 100 Unit/Ml) 0 unit SQ ACHS [facility]; Protocol Last Admin: 07/09/24 16:30 Dose: 3 unit Melatonin (Melatonin 5 Mg Tablet) 10 mg PO BEDTIME PRN PRN PRN Reason: INSOMNIA Last Admin: 07/08/24 20:30 Dose: 10 mg Nutritional Formula (Ensure High Protein 237 Ml Can) 237 ml PO BID [facility] Last Admin: 07/09/24 08:48 Dose: 237 ml Ondansetron HCl (Ondansetron 4 Mg/2 Ml Vial) 4 mg IV Q6HP PRN PRN Reason: NAUSEA / VOMITING Last Admin: 07/03/24 21:53 Dose: 4 mg Spironolactone (Spironolactone 25 Mg Tablet) 25 mg PO BIDL [facility] Last Admin: 07/09/24 16:35 Dose: 25 mg Microbiology Results 06/25/24 20:06 Blood - Blood Aerobic Blood Culture - Final No growth in 5 days. 06/25/24 20:06 Blood - Blood Anaerobic Blood Culture - Final No growth in 5 days. 06/25/24 20:00 Blood - Blood Aerobic Blood Culture - Final No growth in 5 days. 06/25/24 20:00 Blood - Blood Anaerobic Blood Culture - Final No growth in 5 days. 06/25/24 21:54 Clean Catch Urine Alpha Count - Final >100,000 CFU/ML. 06/25/24 21:54 Clean Catch Urine - Final Assessment/ Plan: Nephrology No dyspnea No chest pain No acute events overnight Limited IH/ ROS due to mental status Vitals, medications, blood work and imaging reviewed in the chart General: In no apparent distress, Cooperative HEENT: Atraumatic Neck: Supple Respiratory: Normal air movement Cardiovascular: Regular rate/rhythm, No Edema Gastrointestinal: Non-distended, NT Musculoskeletal: No clubbing, No contractures, Tenderness Integumentary: No rashes, No cyanosis Neurological: Normal speech Blood work reviewed in the chart. Imagings Data: EXAMINATION: ONE VIEW CHEST XR CLINICAL INDICATION: ABDOMINAL DISTENTION TECHNIQUE: Frontal chest projection is submitted. Examination is limited by patient positioning and technique. COMPARISON: 06/02/2024 FINDINGS: Moderate airspace opacity right lower lung likely representing infiltrate/pneumonia. Mild pulmonary edema also present. The heart is moderately enlarged in size. No displaced fractures identified. IMPRESSION: Moderate airspace opacity right lower lung likely representing pneumonia. Underlying CHF pattern is also present. EXAMINATION: CT ABDOMEN AND PELVIS WITHOUT CONTRAST CLINICAL INDICATION: ABD PAIN TECHNIQUE: CT abdomen and pelvis was performed, without IV contrast, as per department protocol. Axial, sagittal and coronal reconstructions were obtained. One or more of the following dose reduction techniques were used: Automated exposure control, adjustment of the mA and kV according to the patient size, and iterative reconstruction. Unless otherwise specified, incidental findings do not require dedicated imaging follow-up. COMPARISON: 06/04/2024 FINDINGS: The lack of intravenous contrast limits the sensitivity of this exam for evaluation of solid visceral organs, vascular structures, and retroperitoneum. LOWER CHEST: Small bilateral pleural effusions with airspace opacity/consolidation in both lung bases, greater on the left. Pneumonia is a possibility versus atelectasis. LIVER:Mild hepatomegaly with fatty liver. Cholecystectomy clips. SPLEEN: Normal size. No focal lesion. PANCREAS: No mass, ductal dilation, or sid-pancreatic fluid. ADRENALS: 18 mm left adrenal mass is present, probably an adenoma. Normal right adrenal gland. KIDNEYS AND URETERS: Small calcifications inferior right kidney without hydronephrosis. No left renal stone or hydronephrosis. URINARY BLADDER: Normal contour. GASTROINTESTINAL TRACT: No evidence of bowel obstruction, significant free fluid, free air or abscess. APPENDIX: Normal appendix. LYMPH NODES: No lymphadenopathy. MUSCULOSKELETAL: Hardware is present proximal left femur. ADDITIONAL FINDINGS: Mild free fluid is seen in the abdomen and pelvis, particularly notable on the left flank. Generalized anasarca noted. IMPRESSION: No definitive acute process seen in the abdomen or pelvis. Generalized fluid retention pattern is present. Airspace opacity with pleural fluid in both lung bases may represent atelectasis or pneumonia. LEFT VENTRICULAR WALL MOTION: DOPPLER/COLOR FLOW: 1. LIMITED IMAGES OBTAINED 2. OVERALL LEFT VENTRICULAR SYSTOLIC FUNCTION LOOKS NORMAL, EJECTION FRACTION 60-65%, NORMAL WALL MOTION Conclusions/Impression: Stage I RAYNE may be CRS complicated by relative hypotension on admission CKD IV with Proteinuria -No NSAIDs Hypokalemia -Replete potassium as ordered HTN with CKD/ CHF -Reduce Coreg due to bradycardia -Continue Hydralazine -Continue Doxazosin -Continue Amlodipine Diastolic CHF, A/C -Increase Diamox and Spironolactone DM II with CKD -RISS Hypoalbuminemia -Albumin 25mg IV as needed Anemia in chronic illness Thrombocytopenia -Monitor CBC -Retacrit prn Acute Cystitis with Hematuria -Resolved Hospitalist note reviewed Cased discussed with Dr. Prieto
[2024-07-10 01:02] VITALS: BMI 32.0
[2024-07-10 04:48] LABS: Anion Gap 6.9 mEq/L (5.0-15.0); Potassium 3.9 mEq/L (3.5-5.1)
[2024-07-10] MEDS: POTASSIUM 25 MEQ EFFERV TAB PO ONE (08:49)
--- NOTE | 2024-07-10 09:32 | P.DS ---
Admission Date: 06/25/24 Discharge Date: 07/10/24 Disposition: ROUTINE DISCHARGE Discharge Condition: GOOD Reason for Admission: Abdominal pain Brief History of Present Illness: 79-year-old female with a past medical history of chronic kidney disease, combined systolic and diastolic heart failure, presenting with abdominal pain for the last 3 days. Patient is from [facility]. Associated symptoms include cough alongside shortness of breath. Patient is a poor historian and there are no family members at bedside. Attempted to call family on the phone however no answer. Hospital Course: 79-year-old female with a history of diastolic heart failure, CKD, hypertension, type 2 diabetes, obesity presenting initially with abdominal pain and shortness of breath found to have globalized anasarca alongside pneumonia in addition to CKD stage IV with protein urea secondary to cardiorenal syndrome. Upon admission she was started on Lasix and antibiotic. Her clinical condition improved over the course of her stay. Nephrology and cardiology was consulted for further management. She was heavily diuresed during her stay and developed a contraction alkalosis. She has been started on Diamox and will continue upon discharge. Her electrolytes are now within normal range. Her blood sugars are controlled. Her Coreg was decreased due to concerns for hypotension and low heart rate. The remainder of her hospital stay has been uncomplicated and she is medically optimized for Vital Signs/Physical Exam: Temp Pulse Resp BP Pulse Ox 98.7 F 58 18 119/51 L 100 07/10/24 08:00 07/10/24 08:48 07/10/24 08:00 07/10/24 08:48 07/10/24 08:00 General: In no apparent distress, Obese HEENT: Normocephalic Neck: Supple Respiratory: Clear to auscultation bilaterally Cardiovascular: No edema Gastrointestinal: Normal bowel sounds, Soft and benign Musculoskeletal: No clubbing Integumentary: No rashes Neurological: Normal speech Lymphatics: No axilla or inguinal lymphadenopathy External genitalia: No edema Laboratory Data at Discharge: WBC 8.40 thou/uL (4.3-10.9) 07/08/24 04:04 Hgb 9.0 g/dL (12.0-15.0) L 07/08/24 04:04 Hct 28.2 % (36.0-45.0) L 07/08/24 04:04 Plt Count 152 thou/uL (152-406) 07/08/24 04:04 PT 16.2 SECONDS (10-13.0) H 06/25/24 18:27 INR 1.45 06/25/24 18:27 Sodium 138 mEq/L (136-145) 07/10/24 04:03 Potassium 3.9 mEq/L (3.5-5.1) 07/10/24 04:03 BUN 71 mg/dL (7-18) H 07/10/24 04:03 Creatinine 3.69 mg/dL (0.55-1.02) H 07/10/24 04:03 Glucose 169 mg/dL (74-106) H 07/10/24 04:03 Uric Acid 5.4 mg/dL (2.6-6.0) 07/09/24 04:05 Phosphorus 2.6 mg/dL (2.5-4.9) 07/05/24 04:08 Magnesium 1.9 mg/dL (1.6-2.4) 07/05/24 22:50 Total Bilirubin 0.7 mg/dL (0.2-1.0) 07/07/24 07:26 AST 14 U/L (15-37) L 07/07/24 07:26 ALT 17 U/L (13-56) 07/07/24 07:26 Alkaline Phosphatase 63 U/L (45-117) 07/07/24 07:26 Triglycerides 73 mg/dL (<150) 06/26/24 09:14 Cholesterol 101 mg/dL (<200) 06/26/24 09:14 HDL Cholesterol 38 mg/dL (40-60) L 06/26/24 09:14 Cholesterol/HDL Ratio 2.66 06/26/24 09:14 Lipase 102 U/L (13-75) H 06/25/24 18:27 Home Medications: Allopurinol 300 mg PO DAILY AT SUPPER 09/17/23 Buspirone HCl [Buspar] 10 mg PO TID 09/17/23 Cetirizine HCl [Zyrtec*] 10 mg PO DAILY 09/17/23 Cholecalciferol (Vitamin D3) [Vitamin D3] 1,000 units PO NOON 09/17/23 Escitalopram [Lexapro*] 10 mg PO DAILY 09/17/23 Gabapentin [Neurontin*] 300 mg PO BID 09/17/23 Insulin Glargine,Hum.rec.anlog [Lantus] 15 units SQ DAILY 09/17/23 Magnesium Oxide [Magnesium] 400 mg PO DAILY 09/17/23 Montelukast [Singulair*] 10 mg PO DAILY 09/17/23 Losartan Potassium [Cozaar*] 50 mg PO BID 11/22/23 Acetaminophen [Tylenol] 650 mg PO Q6HP PRN 05/20/24 Famotidine 20 mg PO DAILY 05/20/24 Insulin Lispro See Protocol SQ ACHS 05/20/24 Multivitamin [Multiple Vitamins] 1 each PO DAILY 05/20/24 Docusate [Colace Cap*] 200 mg PO DAILY PRN #30 cap 05/24/24 Ascorbic Acid [Vitamin C] 500 mg PO BID 06/03/24 Calcium Carbonate [Calcium] 500 mg PO DAILY 06/03/24 Nebivolol HCl [Bystolic] 10 mg PO DAILY 06/03/24 Protein Supplement [Promod] 30 ml PO BID 06/03/24 Zinc Sulfate [Zinc Sulfate*] 220 mg PO DAILY 06/03/24 Acetaminophen with Codeine [Acetaminophen-Cod #3 Tablet] 1 tab PO Q6HP PRN 06/26/24 Apixaban [Eliquis *] 2.5 mg PO BID 06/26/24 Aspirin [Aspirin EC 81 MG] 81 mg PO DAILY 06/26/24 Ibuprofen 400 mg PO Q8HP PRN 06/26/24 Amlodipine [Norvasc*] 2.5 mg PO DAILY 30 Days #30 tab 07/10/24 Doxazosin [Cardura*] 2 mg PO BEDTIME 30 Days #30 tab 07/10/24 Hydralazine [Apresoline*] 50 mg PO BID 30 Days #60 tab 07/10/24 Spironolactone [Aldactone*] 25 mg PO BIDL 30 Days #60 tab 07/10/24 carvediloL [Coreg*] 6.25 mg PO BID 6AM 6PM 30 Days #60 tab 07/10/24 New Medications: Spironolactone [Aldactone*] 25 mg PO BIDL 30 Days #60 tab Hydralazine [Apresoline*] 50 mg PO BID 30 Days #60 tab Doxazosin [Cardura*] 2 mg PO BEDTIME 30 Days #30 tab carvediloL [Coreg*] 6.25 mg PO BID 6AM 6PM 30 Days #60 tab Amlodipine [Norvasc*] 2.5 mg PO DAILY 30 Days #30 tab Followup: NONE,NONE [Primary Care Provider] -
[2024-07-10 11:33] VITALS: O2SAT 97
[2024-07-10 14:23] VITALS: BP 110/57; TEMP 98.3
[2024-07-10] MEDS ORDERED: DOXAZOSIN 2 MG TAB PO SCH (21:00)
[2024-07-10] MEDS ORDERED: HYDRALAZINE HCL 25 MG TABLET PO SCH (21:00)
--- NOTE | 2024-07-10 21:44 | P.PN ---
Date of Service: 07/10/24 Vital Signs Temp Pulse Resp BP Pulse Ox 98.3 F 67 18 110/57 L 95 07/10/24 12:00 07/10/24 12:00 07/10/24 12:00 07/10/24 12:00 07/10/24 12:00 Microbiology Results 06/25/24 20:06 Blood - Blood Aerobic Blood Culture - Final No growth in 5 days. 06/25/24 20:06 Blood - Blood Anaerobic Blood Culture - Final No growth in 5 days. 06/25/24 20:00 Blood - Blood Aerobic Blood Culture - Final No growth in 5 days. 06/25/24 20:00 Blood - Blood Anaerobic Blood Culture - Final No growth in 5 days. 06/25/24 21:54 Clean Catch Urine [place] Count - Final >100,000 CFU/ML. 06/25/24 21:54 Clean Catch Urine - Final Assessment/ Plan: Nephrology No dyspnea No chest pain No acute events overnight Limited IH/ ROS due to mental status Vitals, medications, blood work and imaging reviewed in the chart General: In no apparent distress, Cooperative HEENT: Atraumatic Neck: Supple Respiratory: Normal air movement Cardiovascular: Regular rate/rhythm, No Edema Gastrointestinal: Non-distended, NT Musculoskeletal: No clubbing, No contractures, Tenderness Integumentary: No rashes, No cyanosis Neurological: Normal speech Blood work reviewed in the chart. Imagings Data: EXAMINATION: ONE VIEW CHEST XR CLINICAL INDICATION: ABDOMINAL DISTENTION TECHNIQUE: Frontal chest projection is submitted. Examination is limited by patient positioning and technique. COMPARISON: 06/02/2024 FINDINGS: Moderate airspace opacity right lower lung likely representing infiltrate/pneumonia. Mild pulmonary edema also present. The heart is moderately enlarged in size. No displaced fractures identified. IMPRESSION: Moderate airspace opacity right lower lung likely representing pneumonia. Underlying CHF pattern is also present. EXAMINATION: CT ABDOMEN AND PELVIS WITHOUT CONTRAST CLINICAL INDICATION: ABD PAIN TECHNIQUE: CT abdomen and pelvis was performed, without IV contrast, as per department protocol. Axial, sagittal and coronal reconstructions were obtained. One or more of the following dose reduction techniques were used: Automated exposure control, adjustment of the mA and kV according to the patient size, and iterative reconstruction. Unless otherwise specified, incidental findings do not require dedicated imaging follow-up. COMPARISON: 06/04/2024 FINDINGS: The lack of intravenous contrast limits the sensitivity of this exam for evaluat ion of solid visceral organs, vascular structures, and retroperitoneum. LOWER CHEST: Small bilateral pleural effusions with airspace opacity/consolidation in both lung bases, greater on the left. Pneumonia is a possibility versus atelectasis. LIVER:Mild hepatomegaly with fatty liver. Cholecystectomy clips. SPLEEN: Normal size. No focal lesion. PANCREAS: No mass, ductal dilation, or sid-pancreatic fluid. ADRENALS: 18 mm left adrenal mass is present, probably an adenoma. Normal right adrenal gland. KIDNEYS AND URETERS: Small calcifications inferior right kidney without hydronephrosis. No left renal stone or hydronephrosis. URINARY BLADDER: Normal contour. GASTROINTESTINAL TRACT: No evidence of bowel obstruction, significant free fluid, free air or abscess. APPENDIX: Normal appendix. LYMPH NODES: No lymphadenopathy. MUSCULOSKELETAL: Hardware is present proximal left femur. ADDITIONAL FINDINGS: Mild free fluid is seen in the abdomen and pelvis, particularly notable on the left flank. Generalized anasarca noted. IMPRESSION: No definitive acute process seen in the abdomen or pelvis. Generalized fluid retention pattern is present. Airspace opacity with pleural fluid in both lung bases may represent atelectasis or pneumonia. LEFT VENTRICULAR WALL MOTION: DOPPLER/COLOR FLOW: 1. LIMITED IMAGES OBTAINED 2. OVERALL LEFT VENTRICULAR SYSTOLIC FUNCTION LOOKS NORMAL, EJECTION FRACTION 60-65%, NORMAL WALL MOTION Conclusions/Impression: Stage I RAYNE may be CRS complicated by relative hypotension on admission CKD IV with Proteinuria -No NSAIDs Hypokalemia -Replete potassium as ordered HTN with CKD/ CHF -Reduce Coreg due to bradycardia -Reduce Hydralazine -Reduce Doxazosin -Continue Amlodipine Diastolic CHF, A/C -Reduce Diamox -Continue Spironolactone DM II with CKD -RISS Hypoalbuminemia -Albumin 25mg IV as needed Anemia in chronic illness Thrombocytopenia -Monitor CBC -Retacrit prn Acute Cystitis with Hematuria -Resolved Hospitalist note reviewed Cased discussed with Dr. Prieto
[2024-07-11] MEDS ORDERED: acetaZOLAMIDE 250 MG TAB PO SCH (09:00)
[2024-07-12] MEDS ORDERED: GABAPENTIN 100 MG CAP PO SCH (09:00)
== END 2024-07-10 16:00 | DRG 291 ==
LOC: ER 17:59 → ERHOLD 22:32 → 4TH 06-26 05:06
PROVIDERS: ADMIT Family Medicine; ATTEND Family Medicine
PROC: 4A033R1 Measurement of Arterial Saturation, Peripheral, Percutaneous Approach (ICD-10-PCS; principal; 2024-07-06)
DX: I13.0 Hypertensive heart and chronic kidney disease with heart failure and stage 1 through stage 4 chronic kidney disease, or unspecified chronic kidney disease (principal); G93.41 Metabolic encephalopathy; I50.33 Acute on chronic diastolic (congestive) heart failure; J18.9 Pneumonia, unspecified organism; J44.0 Chronic obstructive pulmonary disease with (acute) lower respiratory infection; N17.9 Acute kidney failure, unspecified; N18.4 Chronic kidney disease, stage 4 (severe); N30.01 Acute cystitis with hematuria; F03.93 Unspecified dementia, unspecified severity, with mood disturbance; E87.3 Alkalosis; E11.22 Type 2 diabetes mellitus with diabetic chronic kidney disease; E11.65 Type 2 diabetes mellitus with hyperglycemia; D63.1 Anemia in chronic kidney disease; E87.5 Hyperkalemia; E78.00 Pure hypercholesterolemia, unspecified; M19.90 Unspecified osteoarthritis, unspecified site; E87.6 Hypokalemia; K59.00 Constipation, unspecified; D69.6 Thrombocytopenia, unspecified; E66.9 Obesity, unspecified; K76.0 Fatty (change of) liver, not elsewhere classified; K58.9 Irritable bowel syndrome, unspecified; G47.33 Obstructive sleep apnea (adult) (pediatric); E88.09 Other disorders of plasma-protein metabolism, not elsewhere classified; Z79.4 Long term (current) use of insulin; Z79.82 Long term (current) use of aspirin; Z68.36 Body mass index [BMI] 36.0-36.9, adult; Z99.81 Dependence on supplemental oxygen; Z79.01 Long term (current) use of anticoagulants; Z79.899 Other long term (current) drug therapy; Z96.642 Presence of left artificial hip joint
CPT/HCPCS: 36415; 36600; 51702; 70450; 71045; 74176; 80048; 80053; 80061; 80076; 81001; 82043; 82550; 82570; 82805; 82947; 83690; 83735; 83880; 84100; 84132; 84145; 84156; 84484; 84550; 85025; 85610; 86140; 87040; 87086; 87088; 93005; 93306; 94760; 99285; J0696; J1450; J1644; J1815; J1938; J2405; J3475; J3480; J7030; J7040; J7050; P9047